=== PATIENT | female | born 1960 | race Caucasian/White ===

== ENCOUNTER → 2017-01-21 | Outpatient (CLI) | payer BC ==
[2017-01-21 10:55] LABS: CHLORIDE,CL 104 mmol/L (98-110); SODIUM,NA 141 mmol/L (136-146)
== END ==
LOC: MW.CHRC 09:54
PROVIDERS: ATTEND Family Medicine
DX: Z00.00 Encounter for general adult medical examination without abnormal findings (principal)
CPT/HCPCS: 36415; 80053

== ENCOUNTER 2018-05-29 11:07 | Observation (INO) | payer MEDICARE, BC ==
[2018-05-29] MEDS ORDERED: methylPREDNISolone Sodium Succinate 125 MG/2 ML SDV IVPUSH ONE (11:18)
[2018-05-29] MEDS ORDERED: Albuterol/Ipratropium 3.0-0.5 MG/3 ML Neb Soln NEB ONE (11:18)
--- NOTE | 2018-05-29 11:21 | EDM.PDOC ---
ED HPI GENERAL MEDICAL PROBLEM - General Chief Complaint: Fever Stated Complaint: FEVER Time Seen by Provider: 05/29/18 11:21 Source of Information: Reports: Patient - History of Present Illness INITIAL COMMENTS - FREE TEXT/NARRATIVE: HISTORY AND PHYSICAL: History of present illness: [Patient with history of emphysema presents with intermittent fever and general malaise, she has taken Tylenol prior to arrival She complains of fever and generalized no chills or sweats no chest pain shortness breath headache dizziness or palpitation no bowel or urine symptoms ] Review of systems: As per history of present illness and below otherwise all systems reviewed and negative. Past medical history: As per history of present illness and as reviewed below otherwise noncontributory. Surgical history: As per history of present illness and as reviewed below otherwise noncontributory. Social history: No reported history of drug or alcohol abuse. Family history: As per history of present illness and as reviewed below otherwise noncontributory. Physical exam: HEENT: Atraumatic, normocephalic, pupils reactive, negative for conjunctival pallor or scleral icterus, mucous membranes moist, throat clear, neck supple, nontender, trachea midline. Lungs: Clear to auscultation, breath sounds equal bilaterally, chest nontender. Heart: S1S2, regular, negative for clicks, rubs, or JVD. Abdomen: Soft, nondistended, nontender. Negative for masses or hepatosplenomegaly. Negative for costovertebral tenderness. Pelvis: Stable nontender. Genitourinary: Deferred. Rectal: Deferred. Extremities: Atraumatic, negative for cords or calf pain. Neurovascular unremarkable. Neuro: Awake, alert, oriented. Cranial nerves II through XII unremarkable. Cerebellum unremarkable. Motor and sensory unremarkable throughout. Exam nonfocal. Diagnostics: [CBC CMP troponin UA Chest 1 view EKG ] Therapeutics: [ normal saline 1 25 mL per hour DuoNeb Solu-Medrol 125 mg IV ] Levaquin 750 mg IV Impression: [Hypoxia Fever-at home Emphysema ] Definitive disposition and diagnosis as appropriate pending reevaluation and review of above. headache Pain Score (Numeric/FACES): 6 - Related Data Allergies Allergy/AdvReac Type Severity Reaction Status Date / Time No Known Allergies Allergy Verified 08/09/15 07:56 ED ROS GENERAL - Review of Systems Review Of Systems: See Below ED EXAM, GENERAL - Physical Exam Exam: See Below Course - Vital Signs Last Recorded V/S: Last Vital Signs Temp 99.0 F 05/29/18 11:18 Pulse 127 H 05/29/18 11:18 Resp 20 05/29/18 11:18 BP 135/67 05/29/18 11:18 Pulse Ox 68 L 05/29/18 11:18 - Orders/Labs/Meds Orders: Active Orders 24 hr Category Date Time Status EKG Documentation Completion [RC] STAT Care 05/29/18 11:19 Active RT Aerosol Therapy [RC] ASDIRECTED Care 05/29/18 11:19 Active CULTURE BLOOD [BC] Stat Lab 05/29/18 11:30 Received CULTURE BLOOD [BC] Stat Lab 05/29/18 11:37 Received CULTURE URINE [RM] Stat Lab 05/29/18 13:07 Ordered LACTIC ACID,WHOLE BLOOD [BG] Stat Lab 05/29/18 12:34 Ordered UA W/MICROSCOPIC [URIN] Stat Lab 05/29/18 13:07 Ordered Levofloxacin/Dextrose 5%-Water [Levaquin in D5W 750 MG/ Med 05/29/18 13:33 Ordered 150 ML] 750 mg Premix Bag 1 bag IV ONETIME Sodium Chloride 0.9% [Normal Saline] 1,000 ml Med 05/29/18 11:30 Active IV STAT Blood Culture x2 Reflex Set [OM.PC] Stat Oth 05/29/18 11:19 Ordered Medication Orders Sodium Chloride (Normal Saline) 1,000 mls @ 125 mls/hr IV STAT CLARA Last Infusion: 05/29/18 13:29 Dose: 125 mls/hr Infusion: 05/29/18 12:40 Dose: 999 mls/hr Admin: 05/29/18 11:39 Dose: 125 mls/hr Labs: Laboratory Tests 05/29/18 05/29/18 05/29/18 Range/Units 11:30 11:30 13:07 WBC 8.36 (4.0-11.0) K/uL RBC 4.40 (4.30-5.90) M/uL Hgb 13.4 (12.0-16.0) g/dL Hct 41.2 (36.0-46.0) % MCV 93.6 (80.0-98.0) fL MCH 30.5 (27.0-32.0) pg MCHC 32.5 (31.0-37.0) g/dL RDW Std Deviation 47.6 (28.0-62.0) fl RDW Coeff of Shaq 14 (11.0-15.0) % Plt Count 191 (150-400) K/uL MPV 10.30 (7.40-12.00) fL Neut % (Auto) 79.6 (48.0-80.0) % Lymph % (Auto) 11.5 L (16.0-40.0) % [place] % (Auto) 8.1 (0.0-15.0) % Eos % (Auto) 0.6 (0.0-7.0) % Baso % (Auto) 0.2 (0.0-1.5) % Neut # (Auto) 6.7 H (1.4-5.7) K/uL Lymph # (Auto) 1.0 (0.6-2.4) K/uL [place] # (Auto) 0.7 (0.0-0.8) K/uL Eos # (Auto) 0.1 (0.0-0.7) K/uL Baso # (Auto) 0.0 (0.0-0.1) K/uL Nucleated RBC % 0.0 /100WBC Nucleated RBCs # 0 K/uL Sodium 137 (136-145) mmol/L Potassium 4.3 (3.5-5.1) mmol/L Chloride 101 (98-107) mmol/L Carbon Dioxide 30.0 (21.0-32.0) mmol/L BUN 8 (7.0-18.0) mg/dL Creatinine 0.7 (0.6-1.0) mg/dL Est Cr Clr Drug Dosing 80.55 mL/min Estimated GFR (MDRD) > 60.0 ml/min Glucose 106 (74-106) mg/dL Calcium 8.8 (8.5-10.1) mg/dL Total Bilirubin 0.4 (0.2-1.0) mg/dL AST 9 L (15-37) IU/L ALT 11 L (14-63) IU/L Alkaline Phosphatase 82 (46-116) U/L Troponin I < 0.050 (0.000-0.056) ng/mL Total Protein 7.7 (6.4-8.2) g/dL Albumin 3.7 (3.4-5.0) g/dL Globulin 4.0 H (2.0-3.5) g/dL Albumin/Globulin Ratio 0.9 L (1.3-2.8) Urine Color YELLOW Urine Appearance CLEAR Urine pH 6.0 (5.0-8.0) Ur Specific [place] 1.025 (1.001-1.035) Urine Protein NEGATIVE (NEGATIVE) mg/dL Urine Glucose (UA) NEGATIVE (NEGATIVE) mg/dL Urine Ketones NEGATIVE (NEGATIVE) mg/dL Urine Occult Blood NEGATIVE (NEGATIVE) Urine Nitrite NEGATIVE (NEGATIVE) Urine Bilirubin NEGATIVE (NEGATIVE) Urine Urobilinogen 0.2 (<2.0) EU/dL Ur Leukocyte Esterase NEGATIVE (NEGATIVE) Urine RBC 0-1 (0-2/HPF) Urine WBC 0-2 (0-5/HPF) Ur Epithelial Cells OCCASIONAL (NONE-FEW) Urine Bacteria FEW (NEGATIVE) Urine Mucus FEW (NONE-MOD) Meds: Medications Generic Name Dose Route Start Last Admin Trade Name Savanna PRN Reason Stop Dose Admin Sodium Chloride 1,000 mls @ 125 mls/hr 05/29/18 11:30 05/29/18 13:29 Normal Saline IV 125 mls/hr STAT CLARA Infusion Discontinued Medications Generic Name Dose Route Start Last Admin Trade Name Savanna PRN Reason Stop Dose Admin Acetaminophen 650 mg 05/29/18 13:18 05/29/18 13:27 Tylenol PO 05/29/18 13:19 650 mg NOW ONE Administration Albuterol/Ipratropium 3 ml 05/29/18 11:18 05/29/18 11:29 Duoneb 3.0-0.5 Mg/3 Ml NEB 05/29/18 11:19 3 ml ONETIME ONE Administration Methylprednisolone Sodium Succinate 125 mg 05/29/18 11:18 05/29/18 11:38 Solu-Medrol IVPUSH 05/29/18 11:19 125 mg ONETIME ONE Administration Departure - Departure Time of Disposition: 13:34 Disposition: Refer to Observation Condition: Poor Clinical Impression: Hypoxia, Fever - Discharge Information Referrals: PCP,None [Primary Care Provider] - Forms: ED Department Discharge - My Orders Last 24 Hours: My Active Orders 05/29/18 11:19 EKG Documentation Completion [RC] STAT RT Aerosol Therapy [RC] ASDIRECTED Blood Culture x2 Reflex Set [OM.PC] Stat 05/29/18 11:30 CULTURE BLOOD [BC] Stat Sodium Chloride 0.9% [Normal Saline] 1,000 ml IV STAT 05/29/18 11:37 CULTURE BLOOD [BC] Stat 05/29/18 12:34 LACTIC ACID,WHOLE BLOOD [BG] Stat 05/29/18 13:07 CULTURE URINE [RM] Stat UA W/MICROSCOPIC [URIN] Stat 05/29/18 13:33 Levofloxacin/Dextrose 5%-Water [Levaquin in D5W 750 MG/150 ML] 750 mg Premix Bag 1 bag IV ONETIME - Assessment/Plan Last 24 Hours: My Active Orders 05/29/18 11:19 EKG Documentation Completion [RC] STAT RT Aerosol Therapy [RC] ASDIRECTED Blood Culture x2 Reflex Set [OM.PC] Stat 05/29/18 11:30 CULTURE BLOOD [BC] Stat Sodium Chloride 0.9% [Normal Saline] 1,000 ml IV STAT 05/29/18 11:37 CULTURE BLOOD [BC] Stat 05/29/18 12:34 LACTIC ACID,WHOLE BLOOD [BG] Stat 05/29/18 13:07 CULTURE URINE [RM] Stat UA W/MICROSCOPIC [URIN] Stat 05/29/18 13:33 Levofloxacin/Dextrose 5%-Water [Levaquin in D5W 750 MG/150 ML] 750 mg Premix Bag 1 bag IV ONETIME
[2018-05-29] MEDS: Sodium Chloride 0.9% 1,000 ML IV SCH ×2 (11:39→16:02)
--- NOTE | 2018-05-29 12:05 | CR ---
EXAMINATION: Portable chest radiograph. HISTORY: Shortness of breath. FINDINGS: The trachea is midline. The cardiomediastinal silhouette is within normal limits. No pulmonary infilt rates, effusions or pneumothorax. Mild chronic interstitial prominence. Osseous structures appear unremarkable. IMPRESSION: No acute cardiopulmonary process.
[2018-05-29 12:18] LABS: CHLORIDE,CL 101 mmol/L (98-107); SODIUM,NA 137 mmol/L (136-145)
[2018-05-29] MEDS ORDERED: Acetaminophen 325 MG Tab PO ONE (13:18)
[2018-05-29] MEDS ORDERED: Levofloxacin/Dextrose 5%-Water 750 MG in Premix Bag 1 BAG IV ONE (13:33)
[2018-05-29] MEDS ORDERED: methylPREDNISolone Sodium Succinate 125 MG/2 ML SDV IVPUSH SCH (14:45)
--- NOTE | 2018-05-29 14:50 | PCM.HP ---
H&P History of Present Illness - General Date of Service: 05/29/18 Admit Problem/Dx: Admission Diagnosis/Problem Admission Diagnosis/Problem Hypoxia - History of Present Illness Initial Comments - Free Text/Narative: The patient is a 57-year-old female with past medical history of COPD who presented today to the ER with hypoxia, O2 sat of 68%, cough, shortness of breath, fever, chills. The patient reports that her granddaughter recently started kindergarten and came home with cold-like symptoms, which she caught. She endorses of 4 day history of productive cough, shortness of breath, fever of 102 , achiness and chills. She has tried [id number] NyQuil and DayQuil without relief. She normally takes Combivent, Pulmicort and Ventolin inhalers as well as daily neb treatments. She's noticed she has needed more nebs treatments the past few days. In the ER, their workup included CBC, CMP, troponin, blood cultures, UA and lactic acid. She did not have a white count. Her troponins negative. No sign of infection on urine and lactic acid was negative. A chest x-ray showed no acute cardiopulmonary process but did show chronic mild interstitial process. They gave her IV fluids, Levaquin, a dose of Solu-Medrol and a DuoNeb treatment. She she noted relief with the neb treatment. 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 Respiratory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: COPD, Other (See Below) Other Respiratory History: emphsyema Gastrointestinal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: Bowel Obstruction Genitourinary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: None [employer] COORD[employer]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: Musculoskeletal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: Arthritis Neurological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: None Psychiatric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: Anxiety Endocrine/Metabolic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: None Hematologic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: None Immunologic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: None Oncologic (Cancer)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: None Dermatologic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: None - Infectious Disease History Infectious Disease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: Chicken Pox, Measles, Mumps - Past Surgical History Head Surgeries/Procedures: Reports: None HEENT Surgical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: Tonsillectomy Respiratory Surgical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: None GI Surgical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: Appendectomy, Other (See Below) (GI procedure for bowel obstructin 2011) Female Surgical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: Section, Tubal Ligation Endocrine Surgical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: None Neurological Surgical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: None Musculoskeletal Surgical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: None Oncologic Surgical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: None Dermatological Surgical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: None Social & Family History - Family History Family Medical History: Noncontributory - Tobacco Use Smoking Status *Q: Former Smoker Used Tobacco, but Quit: Yes Month/Year Tobacco Last Used: 5 - Caffeine Use Caffeine Use: Reports: None - Alcohol Use Alcohol Use History: No - Recreational Drug Use Recreational Drug Use: No H&P Review of Systems - Review of Systems: Review Of Systems: See Below General: Reports: Fever, Chills, Weakness HEENT: Reports: No Symptoms Pulmonary: Reports: Shortness of Breath, Cough, Sputum. Denies: Hemoptysis Cardiovascular: Reports: No Symptoms. Denies: Chest Pain Gastrointestinal: Reports: No Symptoms Genitourinary: Reports: No Symptoms Musculoskeletal: Reports: Other (chronic arthritis-bilateral hands) Skin: Reports: No Symptoms Psychiatric: Reports: No Symptoms Neurological: Reports: No Symptoms Hematologic/Lymphatic: Reports: No Symptoms Immunologic: Reports: No Symptoms Exam - Exam Exam: See Below - Vital Signs Vital Signs: Last Vital Signs Temp 99.0 F 05/29/18 11:18 Pulse 127 H 05/29/18 11:18 Resp 20 05/29/18 11:18 BP 135/67 05/29/18 11:18 Pulse Ox 68 L 05/29/18 11:18 Weight: 58.967 kg - Exam Quality Assessment: Supplemental Oxygen General: Alert, Oriented, Cooperative HEENT: Conjunctiva Clear, EOMI, Posterior Pharynx Clear, Pupils Equal, Pupils Reactive Neck: Supple, Trachea Midline Lungs: Other (coarse sounds left base, wheezes right) Cardiovascular: Regular Rate, Regular Rhythm GI/Abdominal Exam: Normal Bowel Sounds, Soft, Non-Tender, No Distention Extremities: Normal Inspection, No Pedal Edema Skin: Warm, Dry Neurological: Cranial Nerves Intact Neuro Extensive - Mental Status: Alert, Oriented x3, Normal Mood/Affect Psychiatric: Alert, Normal Affect, Normal Mood - Patient Data Lab Results Last 24 hrs: Laboratory Results - last 24 hr 05/29/18 05/29/18 05/29/18 Range/Units 11:30 11:30 13:07 WBC 8.36 (4.0-11.0) K/uL RBC 4.40 (4.30-5.90) M/uL Hgb 13.4 (12.0-16.0) g/dL Hct 41.2 (36.0-46.0) % MCV 93.6 (80.0-98.0) fL MCH 30.5 (27.0-32.0) pg MCHC 32.5 (31.0-37.0) g/dL RDW Std Deviation 47.6 (28.0-62.0) fl RDW Coeff of Shaq 14 (11.0-15.0) % Plt Count 191 (150-400) K/uL MPV 10.30 (7.40-12.00) fL Neut % (Auto) 79.6 (48.0-80.0) % Lymph % (Auto) 11.5 L (16.0-40.0) % [place] % (Auto) 8.1 (0.0-15.0) % Eos % (Auto) 0.6 (0.0-7.0) % Baso % (Auto) 0.2 (0.0-1.5) % Neut # (Auto) 6.7 H (1.4-5.7) K/uL Lymph # (Auto) 1.0 (0.6-2.4) K/uL [place] # (Auto) 0.7 (0.0-0.8) K/uL Eos # (Auto) 0.1 (0.0-0.7) K/uL Baso # (Auto) 0.0 (0.0-0.1) K/uL Nucleated RBC % 0.0 /100WBC Nucleated RBCs # 0 K/uL Lactate (0.20-2.00) mmol/L Sodium 137 (136-145) mmol/L Potassium 4.3 (3.5-5.1) mmol/L Chloride 101 (98-107) mmol/L Carbon Dioxide 30.0 (21.0-32.0) mmol/L BUN 8 (7.0-18.0) mg/dL Creatinine 0.7 (0.6-1.0) mg/dL Est Cr Clr Drug Dosing 80.55 mL/min Estimated GFR (MDRD) > 60.0 ml/min Glucose 106 (74-106) mg/dL Calcium 8.8 (8.5-10.1) mg/dL Total Bilirubin 0.4 (0.2-1.0) mg/dL AST 9 L (15-37) IU/L ALT 11 L (14-63) IU/L Alkaline Phosphatase 82 (46-116) U/L Troponin I < 0.050 (0.000-0.056) ng/mL Total Protein 7.7 (6.4-8.2) g/dL Albumin 3.7 (3.4-5.0) g/dL Globulin 4.0 H (2.0-3.5) g/dL Albumin/Globulin Ratio 0.9 L (1.3-2.8) Urine Color YELLOW Urine Appearance CLEAR Urine pH 6.0 (5.0-8.0) Ur Specific [place] 1.025 (1.001-1.035) Urine Protein NEGATIVE (NEGATIVE) mg/dL Urine Glucose (UA) NEGATIVE (NEGATIVE) mg/dL Urine Ketones NEGATIVE (NEGATIVE) mg/dL Urine Occult Blood NEGATIVE (NEGATIVE) Urine Nitrite NEGATIVE (NEGATIVE) Urine Bilirubin NEGATIVE (NEGATIVE) Urine Urobilinogen 0.2 (<2.0) EU/dL Ur Leukocyte Esterase NEGATIVE (NEGATIVE) Urine RBC 0-1 (0-2/HPF) Urine WBC 0-2 (0-5/HPF) Ur Epithelial Cells OCCASIONAL (NONE-FEW) Urine Bacteria FEW (NEGATIVE) Urine Mucus FEW (NONE-MOD) 05/29/18 Range/Units 13:55 WBC (4.0-11.0) K/uL RBC (4.30-5.90) M/uL Hgb (12.0-16.0) g/dL Hct (36.0-46.0) % MCV (80.0-98.0) fL MCH (27.0-32.0) pg MCHC (31.0-37.0) g/dL RDW Std Deviation (28.0-62.0) fl RDW Coeff of Shaq (11.0-15.0) % Plt Count (150-400) K/uL MPV (7.40-12.00) fL Neut % (Auto) (48.0-80.0) % Lymph % (Auto) (16.0-40.0) % [place] % (Auto) (0.0-15.0) % Eos % (Auto) (0.0-7.0) % Baso % (Auto) (0.0-1.5) % Neut # (Auto) (1.4-5.7) K/uL Lymph # (Auto) (0.6-2.4) K/uL [place] # (Auto) (0.0-0.8) K/uL Eos # (Auto) (0.0-0.7) K/uL Baso # (Auto) (0.0-0.1) K/uL Nucleated RBC % /100WBC Nucleated RBCs # K/uL Lactate 0.5 (0.20-2.00) mmol/L Sodium (136-145) mmol/L Potassium (3.5-5.1) mmol/L Chloride (98-107) mmol/L Carbon Dioxide (21.0-32.0) mmol/L BUN (7.0-18.0) mg/dL Creatinine (0.6-1.0) mg/dL Est Cr Clr Drug Dosing mL/min Estimated GFR (MDRD) ml/min Glucose (74-106) mg/dL Calcium (8.5-10.1) mg/dL Total Bilirubin (0.2-1.0) mg/dL AST (15-37) IU/L ALT (14-63) IU/L Alkaline Phosphatase (46-116) U/L Troponin I (0.000-0.056) ng/mL Total Protein (6.4-8.2) g/dL Albumin (3.4-5.0) g/dL Globulin (2.0-3.5) g/dL Albumin/Globulin Ratio (1.3-2.8) Urine Color Urine Appearance Urine pH (5.0-8.0) Ur Specific [place] (1.001-1.035) Urine Protein (NEGATIVE) mg/dL Urine Glucose (UA) (NEGATIVE) mg/dL Urine Ketones (NEGATIVE) mg/dL Urine Occult Blood (NEGATIVE) Urine Nitrite (NEGATIVE) Urine Bilirubin (NEGATIVE) Urine Urobilinogen (<2.0) EU/dL Ur Leukocyte Esterase (NEGATIVE) Urine RBC (0-2/HPF) Urine WBC (0-5/HPF) Ur Epithelial Cells (NONE-FEW) Urine Bacteria (NEGATIVE) Urine Mucus (NONE-MOD) Result Diagrams: 05/29/18 11:30 05/29/18 11:30 Problem List Initiated/Reviewed/Updated: Yes Orders Last 24hrs: Active Orders 24 hr Category Date Time Status Admission Status [Patient Status] [ADT] Stat ADT 05/29/18 13:35 Active EKG Documentation Completion [RC] STAT Care 05/29/18 11:19 Active Intake and Output [RC] ASDIRECTED Care 05/29/18 14:43 Ordered Oxygen Therapy [RC] ASDIRECTED Care 05/29/18 14:43 Ordered RT Aerosol Therapy [RC] ASDIRECTED Care 05/29/18 11:19 Active RT Aerosol Therapy [RC] ASDIRECTED Care 05/29/18 14:43 Ordered Telemetry Monitoring [Cardiac Monitoring] [RC] . Care 05/29/18 14:30 Active DIRECTED Vital Signs [RC] PER UNIT ROUTINE Care 05/29/18 14:43 Ordered Regular Diet [DIET] Diet 05/29/18 Dinner Ordered CULTURE BLOOD [BC] Stat Lab 05/29/18 11:30 Received CULTURE BLOOD [BC] Stat Lab 05/29/18 11:37 Received CULTURE URINE [RM] Stat Lab 05/29/18 13:07 Ordered UA W/MICROSCOPIC [URIN] Stat Lab 05/29/18 13:07 Ordered Albuterol/Ipratropium [DuoNeb 3.0-0.5 MG/3 ML] Med 05/29/18 18:00 Ordered 3 ml NEB Q4HRRT Enoxaparin [Lovenox] Med 05/29/18 14:45 Ordered 40 mg SUBCUT Q24H Levofloxacin/Dextrose 5%-Water [Levaquin in D5W 750 MG/ Med 05/29/18 13:33 Active 150 ML] 750 mg Premix Bag 1 bag IV ONETIME Levofloxacin/Dextrose 5%-Water [Levaquin in D5W 750 MG/ Med 05/30/18 14:45 Ordered 150 ML] 750 mg Premix Bag 1 bag IV Q24H Sodium Chloride 0.9% [Normal Saline] 1,000 ml Med 05/29/18 11:30 Active IV STAT methylPREDNISolone Sod Succ [Solu-MEDROL] Med 05/29/18 14:45 Ordered 125 mg IVPUSH Q8H Blood Culture x2 Reflex Set [OM.PC] Stat Oth 05/29/18 11:19 Ordered Resuscitation Status Routine Resus Stat 05/29/18 14:43 Ordered Medication Orders Sodium Chloride (Normal Saline) 1,000 mls @ 125 mls/hr IV STAT CLARA Last Infusion: 05/29/18 13:29 Dose: 125 mls/hr Infusion: 05/29/18 12:40 Dose: 999 mls/hr Admin: 05/29/18 11:39 Dose: 125 mls/hr Levofloxacin/Dextrose 750 mg/ (Premix) 150 mls @ 100 mls/hr IV ONETIME ONE Stop: 05/29/18 15:02 Last Admin: 05/29/18 14:13 Dose: 100 mls/hr Assessment/Plan Comment:: 1. Admit for observation 2. Code Status- full 3. Vitals per routine 4. I/Os per routine 5. Diet- regular 6. DVT prophylaxis- Lovenox 7. Acute hypoxic respiratory failure secondary to COPD exacerbation- We will give her solumedrol 125 mg q 8, duonebs q 4, Levaquin daily, and oxygen as needed.
[2018-05-29] MEDS: Enoxaparin 40 MG/0.4 ML Syringe SUBCUT SCH (15:43)
[2018-05-29] MEDS: Albuterol/Ipratropium 3.0-0.5 MG/3 ML Neb Soln NEB SCH ×2 (18:08→21:29)
[2018-05-29] MEDS ORDERED: Acetaminophen 325 MG Tab PO PRN (18:10)
[2018-05-29] MEDS: methylPREDNISolone Sodium Succinate 125 MG/2 ML SDV IVPUSH SCH (18:31)
[2018-05-30] MEDS: Sodium Chloride 0.9% 1,000 ML IV SCH ×3 (00:22→19:48)
[2018-05-30] MEDS: methylPREDNISolone Sodium Succinate 125 MG/2 ML SDV IVPUSH SCH ×3 (02:39→18:19)
[2018-05-30] MEDS: Albuterol/Ipratropium 3.0-0.5 MG/3 ML Neb Soln NEB SCH ×6 (02:40→21:03)
[2018-05-30 06:56] LABS: CHLORIDE,CL 105 mmol/L (98-107); SODIUM,NA 142 mmol/L (136-145)
--- NOTE | 2018-05-30 14:23 | PCM.PN ---
- General Info Date of Service: 05/30/18 - Review of Systems Systems Review Comment:: fevers and shortness of breath improved, still feels worn down - Patient Data Vitals - Most Recent: Last Vital Signs Temp 36.8 C 05/30/18 12:00 Pulse 83 05/30/18 12:00 Resp 20 05/30/18 12:00 BP 120/72 05/30/18 12:00 Pulse Ox 92 L 05/30/18 12:00 Weight - Most Recent: 58.967 kg I&O - Last 24 Hours: Intake & Output 05/29/18 05/30/18 05/30/18 22:59 06:59 14:59 Intake Total 327 1605 Output Total 300 1300 Balance 27 305 Lab Results Last 24 Hours: Laboratory Results - last 24 hr 05/30/18 05/30/18 05/30/18 Range/Units 06:12 06:12 06:25 WBC 4.03 (4.0-11.0) K/uL RBC 3.94 L (4.30-5.90) M/uL Hgb 11.7 L (12.0-16.0) g/dL Hct 36.7 (36.0-46.0) % MCV 93.1 (80.0-98.0) fL MCH 29.7 (27.0-32.0) pg MCHC 31.9 (31.0-37.0) g/dL RDW Std Deviation 46.7 (28.0-62.0) fl RDW Coeff of Shaq 14 (11.0-15.0) % Plt Count 160 (150-400) K/uL MPV 10.30 (7.40-12.00) fL Neut % (Auto) 78.7 (48.0-80.0) % Lymph % (Auto) 16.1 (16.0-40.0) % [place] % (Auto) 5.2 (0.0-15.0) % Eos % (Auto) 0.0 (0.0-7.0) % Baso % (Auto) 0.0 (0.0-1.5) % Neut # (Auto) 3.2 (1.4-5.7) K/uL Lymph # (Auto) 0.7 (0.6-2.4) K/uL [place] # (Auto) 0.2 (0.0-0.8) K/uL Eos # (Auto) 0.0 (0.0-0.7) K/uL Baso # (Auto) 0.0 (0.0-0.1) K/uL Nucleated RBC % 0.0 /100WBC Nucleated RBCs # 0 K/uL Sodium 142 (136-145) mmol/L Potassium 4.0 (3.5-5.1) mmol/L Chloride 105 (98-107) mmol/L Carbon Dioxide 29.6 (21.0-32.0) mmol/L BUN 10 (7.0-18.0) mg/dL Creatinine 0.6 (0.6-1.0) mg/dL Est Cr Clr Drug Dosing 93.98 mL/min Estimated GFR (MDRD) > 60.0 ml/min Glucose 121 H (74-106) mg/dL POC Glucose 118 H (60-110) mg/dL Calcium 8.2 L (8.5-10.1) mg/dL Yair Results Last 24 Hours: Microbiology 05/29/18 11:37 Aerobic Blood Culture - Preliminary Blood - Venous - Lab Draw NO GROWTH AFTER 1 DAY Anaerobic Blood Culture - Preliminary NO GROWTH AFTER 1 DAY 05/29/18 11:30 Aerobic Blood Culture - Preliminary Blood - Venous NO GROWTH AFTER 1 DAY Anaerobic Blood Culture - Preliminary NO GROWTH AFTER 1 DAY Med Orders - Current: Current Medications Acetaminophen (Tylenol) 650 mg PO Q4H PRN PRN Reason: Pain (Mild 1-3)/fever Last Admin: 05/30/18 11:13 Dose: 650 mg Albuterol/Ipratropium (Duoneb 3.0-0.5 Mg/3 Ml) 3 ml NEB Q4HRRT CLARA Last Admin: 05/30/18 13:38 Dose: 3 ml Enoxaparin Sodium (Lovenox) 40 mg SUBCUT Q24H CLARA Last Admin: 05/29/18 15:43 Dose: 40 mg Sodium Chloride (Normal Saline) 1,000 mls @ 125 mls/hr IV STAT CLARA Last Admin: 05/30/18 09:40 Dose: 125 mls/hr Levofloxacin/Dextrose 750 mg/ (Premix) 150 mls @ 100 mls/hr IV Q24H CLARA Methylprednisolone Sodium Succinate (Solu-Medrol) 125 mg IVPUSH Q12H CLARA Discontinued Medications Acetaminophen (Tylenol) 650 mg PO NOW ONE Stop: 05/29/18 13:19 Last Admin: 05/29/18 13:27 Dose: 650 mg Albuterol/Ipratropium (Duoneb 3.0-0.5 Mg/3 Ml) 3 ml NEB ONETIME ONE Stop: 05/29/18 11:19 Last Admin: 05/29/18 11:29 Dose: 3 ml Levofloxacin/Dextrose 750 mg/ (Premix) 150 mls @ 100 mls/hr IV ONETIME ONE Stop: 05/29/18 15:02 Last Admin: 05/29/18 14:13 Dose: 100 mls/hr Methylprednisolone Sodium Succinate (Solu-Medrol) 125 mg IVPUSH ONETIME ONE Stop: 05/29/18 11:19 Last Admin: 05/29/18 11:38 Dose: 125 mg Methylprednisolone Sodium Succinate (Solu-Medrol) 125 mg IVPUSH Q8H [facility] Last Admin: 05/29/18 16:23 Dose: Not Given Methylprednisolone Sodium Succinate (Solu-Medrol) 125 mg IVPUSH Q8H [facility] Last Admin: 05/30/18 10:42 Dose: 125 mg - Exam General: Alert, Oriented Lungs: Clear to Auscultation, Normal Respiratory Effort Cardiovascular: Regular Rate, Regular Rhythm GI/Abdominal Exam: Soft, Non-Tender Extremities: Non-Tender Skin: Warm, Dry, Intact Neurological: No New Focal Deficit - Problem List Review Problem List Initiated/Reviewed/Updated: Yes - My Orders Last 24 Hours: My Active Orders 05/29/18 14:30 Telemetry Monitoring [Cardiac Monitoring] [RC] Q8H 05/30/18 19:00 methylPREDNISolone Sod Succ [Solu-MEDROL] 125 mg IVPUSH Q12H 05/31/18 05:11 BASIC METABOLIC PANEL,BMP [CHEM] AM CBC WITH AUTO DIFF [HEME] AM 06/01/18 05:11 BASIC METABOLIC PANEL,BMP [CHEM] AM CBC WITH AUTO DIFF [HEME] AM 06/02/18 05:11 BASIC METABOLIC PANEL,BMP [CHEM] AM CBC WITH AUTO DIFF [HEME] AM 06/03/18 05:11 BASIC METABOLIC PANEL,BMP [CHEM] AM CBC WITH AUTO DIFF [HEME] AM 06/04/18 05:11 BASIC METABOLIC PANEL,BMP [CHEM] AM CBC WITH AUTO DIFF [HEME] AM 06/05/18 05:11 BASIC METABOLIC PANEL,BMP [CHEM] AM CBC WITH AUTO DIFF [HEME] AM - Plan Plan:: 57 yo female admitted for COPD exacerbation. Will decrease solumedrol rate to q12h, continue dounebs and levaquin. Patient does not feel ready to go home.
[2018-05-30] MEDS: Levofloxacin/Dextrose 5%-Water 750 MG in Premix Bag 1 BAG IV SCH (14:33)
[2018-05-30] MEDS: Enoxaparin 40 MG/0.4 ML Syringe SUBCUT SCH (14:33)
[2018-05-31] MEDS: Albuterol/Ipratropium 3.0-0.5 MG/3 ML Neb Soln NEB SCH ×6 (01:23→21:11)
[2018-05-31] MEDS: Sodium Chloride 0.9% 1,000 ML IV SCH ×2 (03:07→10:44)
[2018-05-31] MEDS: methylPREDNISolone Sodium Succinate 125 MG/2 ML SDV IVPUSH SCH ×2 (06:17→18:51)
[2018-05-31 06:18] LABS: CHLORIDE,CL 106 mmol/L (98-107); SODIUM,NA 141 mmol/L (136-145)
--- NOTE | 2018-05-31 09:55 | PCM.PN ---
- General Info Date of Service: 05/31/18 Subjective Update: The patient is a 57 year old female who was admitted for COPD exacerbation. She is nervous about going home. She denies shortness of breath but she has been on oxygen. Her O2 was decreased this morning from 2 L to 1 L and her saturation is 90% on 1 L. She has remained afebrile. She denies chest pain or abdominal pain. - Review of Systems General: Reports: No Symptoms HEENT: Reports: No Symptoms Pulmonary: Reports: Cough, Wheezing. Denies: Shortness of Breath Cardiovascular: Reports: No Symptoms Gastrointestinal: Reports: No Symptoms Genitourinary: Reports: No Symptoms Musculoskeletal: Reports: No Symptoms Skin: Reports: No Symptoms Neurological: Reports: No Symptoms Psychiatric: Reports: No Symptoms - Patient Data Vitals - Most Recent: Last Vital Signs Temp 97.5 F 05/31/18 07:39 Pulse 80 05/31/18 07:39 Resp 15 05/31/18 07:39 BP 154/75 H 05/31/18 07:39 Pulse Ox 90 L 05/31/18 07:39 Weight - Most Recent: 58.967 kg I&O - Last 24 Hours: Intake & Output 05/30/18 05/31/18 05/31/18 22:59 06:59 14:59 Intake Total 6106 1317 Output Total 600 800 Balance 5506 517 Lab Results Last 24 Hours: Laboratory Results - last 24 hr 05/31/18 05/31/18 Range/Units 05:45 05:45 WBC 9.46 (4.0-11.0) K/uL RBC 3.72 L (4.30-5.90) M/uL Hgb 11.1 L (12.0-16.0) g/dL Hct 34.3 L (36.0-46.0) % MCV 92.2 (80.0-98.0) fL MCH 29.8 (27.0-32.0) pg MCHC 32.4 (31.0-37.0) g/dL RDW Std Deviation 45.9 (28.0-62.0) fl RDW Coeff of Shaq 14 (11.0-15.0) % Plt Count 199 (150-400) K/uL MPV 9.90 (7.40-12.00) fL Add Manual Diff YES Neutrophils % (Manual) 74 (48.0-80.0) % Band Neutrophils % 5 % Lymphocytes % (Manual) 19 (16.0-40.0) % Monocytes % (Manual) 2 (0.0-15.0) % Nucleated RBC % 0.0 /100WBC Absolute Seg Neuts 7.0 H (1.4-5.7) Band Neutrophils # 0.5 Lymphocytes # (Manual) 1.8 (0.6-2.4) Monocytes # (Manual) 0.2 (0.0-0.8) Nucleated RBCs # 0 K/uL Sodium 141 (136-145) mmol/L Potassium 3.6 (3.5-5.1) mmol/L Chloride 106 (98-107) mmol/L Carbon Dioxide 28.1 (21.0-32.0) mmol/L BUN 15 (7.0-18.0) mg/dL Creatinine 0.6 (0.6-1.0) mg/dL Est Cr Clr Drug Dosing 93.98 mL/min Estimated GFR (MDRD) > 60.0 ml/min Glucose 120 H (74-106) mg/dL Calcium 8.2 L (8.5-10.1) mg/dL Yair Results Last 24 Hours: Microbiology 05/29/18 13:07 Urine Culture - Final Urine, Clean Catch MIXED ZOE 1,000-10,000 CFU/ML 05/29/18 11:37 Aerobic Blood Culture - Preliminary Blood - Venous - Lab Draw NO GROWTH AFTER 1 DAY Anaerobic Blood Culture - Preliminary NO GROWTH AFTER 1 DAY 05/29/18 11:30 Aerobic Blood Culture - Preliminary Blood - Venous NO GROWTH AFTER 1 DAY Anaerobic Blood Culture - Preliminary NO GROWTH AFTER 1 DAY Med Orders - Current: Current Medications Acetaminophen (Tylenol) 650 mg PO Q4H PRN PRN Reason: Pain (Mild 1-3)/fever Last Admin: 05/30/18 11:13 Dose: 650 mg Albuterol/Ipratropium (Duoneb 3.0-0.5 Mg/3 Ml) 3 ml NEB Q4HRRT ON LICENSE OF [facility] Last Admin: 05/31/18 06:01 Dose: 3 ml Enoxaparin Sodium (Lovenox) 40 mg SUBCUT Q24H ON LICENSE OF [facility] Last Admin: 05/30/18 14:33 Dose: 40 mg Sodium Chloride (Normal Saline) 1,000 mls @ 125 mls/hr IV STAT ON LICENSE OF [facility] Last Admin: 05/31/18 03:07 Dose: 125 mls/hr Levofloxacin/Dextrose 750 mg/ (Premix) 150 mls @ 100 mls/hr IV Q24H ON LICENSE OF [facility] Last Admin: 05/30/18 14:33 Dose: 100 mls/hr Methylprednisolone Sodium Succinate (Solu-Medrol) 125 mg IVPUSH Q12H ON LICENSE OF [facility] Last Admin: 05/31/18 06:17 Dose: 125 mg Discontinued Medications Acetaminophen (Tylenol) 650 mg PO NOW ONE Stop: 05/29/18 13:19 Last Admin: 05/29/18 13:27 Dose: 650 mg Albuterol/Ipratropium (Duoneb 3.0-0.5 Mg/3 Ml) 3 ml NEB ONETIME ONE Stop: 05/29/18 11:19 Last Admin: 05/29/18 11:29 Dose: 3 ml Levofloxacin/Dextrose 750 mg/ (Premix) 150 mls @ 100 mls/hr IV ONETIME ONE Stop: 05/29/18 15:02 Last Admin: 05/29/18 14:13 Dose: 100 mls/hr Methylprednisolone Sodium Succinate (Solu-Medrol) 125 mg IVPUSH ONETIME ONE Stop: 05/29/18 11:19 Last Admin: 05/29/18 11:38 Dose: 125 mg Methylprednisolone Sodium Succinate (Solu-Medrol) 125 mg IVPUSH Q8H ON LICENSE OF [facility] Last Admin: 05/29/18 16:23 Dose: Not Given Methylprednisolone Sodium Succinate (Solu-Medrol) 125 mg IVPUSH Q8H ON LICENSE OF [facility] Last Admin: 05/30/18 10:42 Dose: 125 mg - Exam Quality Assessment: Supplemental Oxygen General: Alert, Oriented, Cooperative, No Acute Distress Lungs: Wheezing (bases bilaterally) GI/Abdominal Exam: Normal Bowel Sounds, Soft, Non-Tender, No Distention Extremities: Normal Inspection, No Pedal Edema Skin: Warm, Dry Neurological: No New Focal Deficit Psy/Mental Status: Alert, Normal Affect, Normal Mood - Problem List Review Problem List Initiated/Reviewed/Updated: Yes - My Orders Last 24 Hours: My Active Orders 05/30/18 14:45 Levofloxacin/Dextrose 5%-Water [Levaquin in D5W 750 MG/150 ML] 750 mg Premix Bag 1 bag IV Q24H - Plan Plan:: 1. COPD exacerbation- will continue Levaquin, duonebs, and solumedrol q 12. Her O2 dropped down to 87-88% on RA. We will keep her another day and reassess in the morning.
[2018-05-31] MEDS: Levofloxacin/Dextrose 5%-Water 750 MG in Premix Bag 1 BAG IV SCH (14:40)
[2018-05-31] MEDS: Enoxaparin 40 MG/0.4 ML Syringe SUBCUT SCH (14:42)
[2018-05-31] MEDS ORDERED: Pneumococcal Polyvalent-23 Vaccine 0.5 ML SDV IM ONE (15:26)
[2018-06-01] MEDS: Albuterol/Ipratropium 3.0-0.5 MG/3 ML Neb Soln NEB SCH ×4 (01:38→13:21)
[2018-06-01 05:53] LABS: CHLORIDE,CL 104 mmol/L (98-107); SODIUM,NA 140 mmol/L (136-145)
[2018-06-01] MEDS: methylPREDNISolone Sodium Succinate 125 MG/2 ML SDV IVPUSH SCH (06:05)
[2018-06-01] MEDS ORDERED: Potassium Chloride 20 MEQ Tab.ER PO ONE (07:03)
--- NOTE | 2018-06-01 08:54 | PCM.PN ---
- General Info Date of Service: 06/01/18 Subjective Update: Patient is a 57 year old female who was admitted for COPD exacerbation. She denies any chest pain, abdominal pain, difficultly eating or drinking. She does endorse shortness of breath with activity despite oxygen supplementation. Off oxygen her O2 sat drops down to 86-88. She does endorse cough. She does not feel ready to go home this morning. - Review of Systems General: Reports: No Symptoms HEENT: Reports: No Symptoms Pulmonary: Reports: Shortness of Breath, Cough, Wheezing Cardiovascular: Reports: No Symptoms Gastrointestinal: Reports: No Symptoms Genitourinary: Reports: No Symptoms Musculoskeletal: Reports: No Symptoms Skin: Reports: No Symptoms Neurological: Reports: No Symptoms Psychiatric: Reports: No Symptoms - Patient Data Vitals - Most Recent: Last Vital Signs Temp 98.8 F 06/01/18 07:45 Pulse 76 06/01/18 07:45 Resp 16 06/01/18 07:45 BP 161/82 H 06/01/18 07:45 Pulse Ox 92 L 06/01/18 07:45 Weight - Most Recent: 58.967 kg I&O - Last 24 Hours: Intake & Output 05/31/18 06/01/18 06/01/18 22:59 06:59 14:59 Intake Total 390 700 Output Total 900 1050 Balance -510 -350 Lab Results Last 24 Hours: Laboratory Results - last 24 hr 06/01/18 06/01/18 Range/Units 05:19 05:19 WBC 10.48 (4.0-11.0) K/uL RBC 3.98 L (4.30-5.90) M/uL Hgb 11.8 L (12.0-16.0) g/dL Hct 36.2 (36.0-46.0) % MCV 91.0 (80.0-98.0) fL MCH 29.6 (27.0-32.0) pg MCHC 32.6 (31.0-37.0) g/dL RDW Std Deviation 44.9 (28.0-62.0) fl RDW Coeff of Shaq 14 (11.0-15.0) % Plt Count 223 (150-400) K/uL MPV 9.90 (7.40-12.00) fL Add Manual Diff YES Neutrophils % (Manual) 81 H (48.0-80.0) % Band Neutrophils % 2 % Lymphocytes % (Manual) 7 L (16.0-40.0) % Monocytes % (Manual) 10 (0.0-15.0) % Nucleated RBC % 0.0 /100WBC Absolute Seg Neuts 8.5 H (1.4-5.7) Band Neutrophils # 0.2 Lymphocytes # (Manual) 0.7 (0.6-2.4) Monocytes # (Manual) 1.0 H (0.0-0.8) Nucleated RBCs # 0 K/uL Sodium 140 (136-145) mmol/L Potassium 3.4 L (3.5-5.1) mmol/L Chloride 104 (98-107) mmol/L Carbon Dioxide 30.7 (21.0-32.0) mmol/L BUN 14 (7.0-18.0) mg/dL Creatinine 0.6 (0.6-1.0) mg/dL Est Cr Clr Drug Dosing 93.98 mL/min Estimated GFR (MDRD) > 60.0 ml/min Glucose 120 H (74-106) mg/dL Calcium 8.6 (8.5-10.1) mg/dL Yair Results Last 24 Hours: Microbiology 05/29/18 11:37 Aerobic Blood Culture - Preliminary Blood - Venous - Lab Draw NO GROWTH AFTER 2 DAYS Anaerobic Blood Culture - Preliminary NO GROWTH AFTER 2 DAYS 05/29/18 11:30 Aerobic Blood Culture - Preliminary Blood - Venous NO GROWTH AFTER 2 DAYS Anaerobic Blood Culture - Preliminary NO GROWTH AFTER 2 DAYS 05/29/18 13:07 Urine Culture - Final Urine, Clean Catch MIXED ZOE 1,000-10,000 CFU/ML Med Orders - Current: Current Medications Acetaminophen (Tylenol) 650 mg PO Q4H PRN PRN Reason: Pain (Mild 1-3)/fever Last Admin: 05/30/18 11:13 Dose: 650 mg Albuterol/Ipratropium (Duoneb 3.0-0.5 Mg/3 Ml) 3 ml NEB Q4HRRT [facility] Last Admin: 06/01/18 05:48 Dose: 3 ml Enoxaparin Sodium (Lovenox) 40 mg SUBCUT Q24H [facility] Last Admin: 05/31/18 14:42 Dose: 40 mg Levofloxacin/Dextrose 750 mg/ (Premix) 150 mls @ 100 mls/hr IV Q24H [facility] Last Admin: 05/31/18 14:40 Dose: 100 mls/hr Methylprednisolone Sodium Succinate (Solu-Medrol) 125 mg IVPUSH Q12H [facility] Last Admin: 06/01/18 06:05 Dose: 125 mg Discontinued Medications Acetaminophen (Tylenol) 650 mg PO NOW ONE Stop: 05/29/18 13:19 Last Admin: 05/29/18 13:27 Dose: 650 mg Albuterol/Ipratropium (Duoneb 3.0-0.5 Mg/3 Ml) 3 ml NEB ONETIME ONE Stop: 05/29/18 11:19 Last Admin: 05/29/18 11:29 Dose: 3 ml Sodium Chloride (Normal Saline) 1,000 mls @ 125 mls/hr IV STAT [facility] Last Admin: 05/31/18 10:44 Dose: 125 mls/hr Levofloxacin/Dextrose 750 mg/ (Premix) 150 mls @ 100 mls/hr IV ONETIME ONE Stop: 05/29/18 15:02 Last Admin: 05/29/18 14:13 Dose: 100 mls/hr Methylprednisolone Sodium Succinate (Solu-Medrol) 125 mg IVPUSH ONETIME ONE Stop: 05/29/18 11:19 Last Admin: 05/29/18 11:38 Dose: 125 mg Methylprednisolone Sodium Succinate (Solu-Medrol) 125 mg IVPUSH Q8H [facility] Last Admin: 05/29/18 16:23 Dose: Not Given Methylprednisolone Sodium Succinate (Solu-Medrol) 125 mg IVPUSH Q8H [facility] Last Admin: 05/30/18 10:42 Dose: 125 mg Pneumococcal Polyvalent Vaccine (Pneumovax 23) 0.5 ml IM .ONCE ONE Stop: 05/31/18 15:27 Last Admin: 05/31/18 15:58 Dose: 0.5 ml Potassium Chloride (Klor-Con M20) 40 meq PO ONETIME ONE Stop: 06/01/18 07:04 Last Admin: 06/01/18 08:30 Dose: 40 meq - Exam Quality Assessment: Supplemental Oxygen General: Alert, Oriented, Cooperative Lungs: Normal Respiratory Effort, Wheezing (bases bilaterally) GI/Abdominal Exam: Normal Bowel Sounds, Soft, Non-Tender, No Distention Extremities: Normal Inspection, No Pedal Edema Skin: Warm, Dry Neurological: No New Focal Deficit Psy/Mental Status: Alert, Normal Affect, Normal Mood - Problem List Review Problem List Initiated/Reviewed/Updated: Yes - Plan Plan:: 1. COPD exacerbation- will continue Levaquin, duonebs, and solumedrol q 12. Earlier her O2 dropped down to 86-88% on RA on reassessment during rounds she maintained her oxygen saturation above 90% on RA. Reassess this afternoon for possible discharge home today.
[2018-06-01] MEDS: Levofloxacin/Dextrose 5%-Water 750 MG in Premix Bag 1 BAG IV SCH (13:58)
[2018-06-01] MEDS: Enoxaparin 40 MG/0.4 ML Syringe SUBCUT SCH (14:01)
--- NOTE | 2018-06-01 15:28 | PCM.DCSUM1 ---
Discharge Summary - Hospital Course HPI Initial Comments: Admission Date:05/29/18 Discharge Date:06/01/18 Admission Diagnosis: 1. Acute hypoxic respiratory failure secondary to COPD exacerbation Discharge Diagnosis: 1. Acute hypoxic respiratory failure secondary to COPD exacerbation- resolved Procedures: None Consults: None Hospital Course: The patient is a 57-year-old female with history of COPD who presented to the ER with fever, chills, cough, shortness of breath and an O2 saturation 68% on room air. In the ER workup included a CBC with no elevated white count, CMP, troponin,which was negative. Blood cultures were negative. A UA showed no signs of infection, and a lactate, which was not elevated. They did a chest x-ray that showed chronic interstitial process, but no acute cardiopulmonary process. In the ER, they did give her IV fluids, Levaquin, Solu -Medrol, and DuoNeb treatments. She was admitted to the medical floor for observation. She was continued on Levaquin. She was continued on Solu-Medrol originally every 8 then extended out every 12. She was also given duo nebs every 4. Over the course of her stay, she will trialed on room air, but satted at the 86-88%. On the last day of admission, she was able to get off oxygen and was satting above 91% on room air. Disposition: Home Discharge Condition: Vitals stable, satting above 91% on RA, afebrile, tolerating oral diet, ambulating without difficulty Discharge Instructions: Regular diet as tolerated, activity as tolerated, may drive, may shower. Symptoms to report to physicain include chest pain, shortness of breath, abdominal pain, fever/chills, swelling, discharge, erythema. Discharge Medications: ALPRAZolam [Xanax] 2 mg PO TID PRN Acetaminophen with Codeine [Tylenol with Codeine #4 Tablet] 1 - 2 tab PO Q4HR PRN Albuterol/Ipratropium [Combivent Respimat] 4 gm IH QID PRN Budesonide/Formoterol Fumarate [Symbicort 160-4.5 Mcg Inhaler] 1 puff INH DAILY Ipratropium/Albuterol Sulfate [Iprat-Albut 0.5-3(2.5) MG/3 ML] 1 ampule NEB QID PRN levoFLOXacin [Levaquin] 750 mg PO DAILY 1 Days #1 tab 06/01/18 [Rx] methylPREDNISolone [Medrol] 4 mg PO ASDIRECTED 6 Days #21 dospk 06/01/18 [Rx] Follow-up: Dr. Loza on 06/16/18 Diagnosis: Stroke: No - Discharge Data Discharge Date: 06/01/18 Discharge Disposition: Home, Self-Care 01 Condition: Stable - Patient Instructions Diet: Regular Diet as Tolerated Activity: As Tolerated Driving: May Drive Today Showering/Bathing: May Shower Notify Provider of: Fever, Increased Pain, Swelling and Redness, Drainage, Nausea and/or Vomiting Other/Special Instructions: Additional symptoms include chest pain, shortness of breath or abdominal pain. - Discharge Plan Prescriptions/Med Rec: levoFLOXacin [Levaquin] 750 mg PO DAILY 1 Days #1 tab methylPREDNISolone [Medrol] 4 mg PO ASDIRECTED 6 Days #21 dospk Home Medications: Home Meds ALPRAZolam [Xanax] 2 mg PO TID PRN 05/29/18 [History] Acetaminophen with Codeine [Tylenol with Codeine #4 Tablet] 1 - 2 tab PO Q4HR PRN 05/29/18 [History] Albuterol/Ipratropium [Combivent Respimat] 4 gm IH QID PRN 05/29/18 [History] Budesonide/Formoterol Fumarate [Symbicort 160-4.5 Mcg Inhaler] 1 puff INH DAILY 05/29/18 [History] Ipratropium/Albuterol Sulfate [Iprat-Albut 0.5-3(2.5) MG/3 ML] 1 ampule NEB QID PRN 05/29/18 [History] levoFLOXacin [Levaquin] 750 mg PO DAILY 1 Days #1 tab 06/01/18 [Rx] methylPREDNISolone [Medrol] 4 mg PO ASDIRECTED 6 Days #21 dospk 06/01/18 [Rx] Patient Handouts: Hypoxia, Community-Acquired Pneumonia, Adult, [id number] Referrals: Yaw Loza MD [Physician] - 06/16/18 9:00 am - Patient Data Vitals - Most Recent: Last Vital Signs Temp 98.6 F 06/01/18 12:00 Pulse 83 09/10/18 12:00 Resp 16 06/01/18 12:00 BP 160/84 H 06/01/18 12:00 Pulse Ox 90 L 06/01/18 12:00 Weight - Most Recent: 58.967 kg I&O - Last 24 hours: Intake & Output 06/01/18 06/01/18 06/01/18 06:59 14:59 22:59 Intake Total 700 Output Total 1050 Balance -350 Lab Results - Last 24 hrs: Laboratory Results - last 24 hr 06/01/18 06/01/18 Range/Units 05:19 05:19 WBC 10.48 (4.0-11.0) K/uL RBC 3.98 L (4.30-5.90) M/uL Hgb 11.8 L (12.0-16.0) g/dL Hct 36.2 (36.0-46.0) % MCV 91.0 (80.0-98.0) fL MCH 29.6 (27.0-32.0) pg MCHC 32.6 (31.0-37.0) g/dL RDW Std Deviation 44.9 (28.0-62.0) fl RDW Coeff of Shaq 14 (11.0-15.0) % Plt Count 223 (150-400) K/uL MPV 9.90 (7.40-12.00) fL Add Manual Diff YES Neutrophils % (Manual) 81 H (48.0-80.0) % Band Neutrophils % 2 % Lymphocytes % (Manual) 7 L (16.0-40.0) % Monocytes % (Manual) 10 (0.0-15.0) % Nucleated RBC % 0.0 /100WBC Absolute Seg Neuts 8.5 H (1.4-5.7) Band Neutrophils # 0.2 Lymphocytes # (Manual) 0.7 (0.6-2.4) Monocytes # (Manual) 1.0 H (0.0-0.8) Nucleated RBCs # 0 K/uL Sodium 140 (136-145) mmol/L Potassium 3.4 L (3.5-5.1) mmol/L Chloride 104 (98-107) mmol/L Carbon Dioxide 30.7 (21.0-32.0) mmol/L BUN 14 (7.0-18.0) mg/dL Creatinine 0.6 (0.6-1.0) mg/dL Est Cr Clr Drug Dosing 93.98 mL/min Estimated GFR (MDRD) > 60.0 ml/min Glucose 120 H (74-106) mg/dL Calcium 8.6 (8.5-10.1) mg/dL [id number] Results - Last 24 hrs: Microbiology 05/29/18 11:37 Aerobic Blood Culture - Preliminary Blood - Venous - Lab Draw NO GROWTH AFTER 3 DAYS Anaerobic Blood Culture - Preliminary NO GROWTH AFTER 3 DAYS 05/29/18 11:30 Aerobic Blood Culture - Preliminary Blood - Venous NO GROWTH AFTER 3 DAYS Anaerobic Blood Culture - Preliminary NO GROWTH AFTER 3 DAYS Med Orders - Current: Current Medications Acetaminophen (Tylenol) 650 mg PO Q4H PRN PRN Reason: Pain (Mild 1-3)/fever Last Admin: 05/30/18 11:13 Dose: 650 mg Albuterol/Ipratropium (Duoneb 3.0-0.5 Mg/3 Ml) 3 ml NEB Q4HRRT [facility] Last Admin: 06/01/18 13:21 Dose: 3 ml Enoxaparin Sodium (Lovenox) 40 mg SUBCUT Q24H [facility] Last Admin: 06/01/18 14:01 Dose: 40 mg Levofloxacin/Dextrose 750 mg/ (Premix) 150 mls @ 100 mls/hr IV Q24H [facility] Last Admin: 06/01/18 13:58 Dose: 100 mls/hr Methylprednisolone Sodium Succinate (Solu-Medrol) 125 mg IVPUSH Q12H [facility] Last Admin: 06/01/18 06:05 Dose: 125 mg Discontinued Medications Acetaminophen (Tylenol) 650 mg PO NOW ONE Stop: 05/29/18 13:19 Last Admin: 05/29/18 13:27 Dose: 650 mg Albuterol/Ipratropium (Duoneb 3.0-0.5 Mg/3 Ml) 3 ml NEB ONETIME ONE Stop: 05/29/18 11:19 Last Admin: 05/29/18 11:29 Dose: 3 ml Sodium Chloride (Normal Saline) 1,000 mls @ 125 mls/hr IV STAT [facility] Last Admin: 05/31/18 10:44 Dose: 125 mls/hr Levofloxacin/Dextrose 750 mg/ (Premix) 150 mls @ 100 mls/hr IV ONETIME ONE Stop: 05/29/18 15:02 Last Admin: 05/29/18 14:13 Dose: 100 mls/hr Methylprednisolone Sodium Succinate (Solu-Medrol) 125 mg IVPUSH ONETIME ONE Stop: 05/29/18 11:19 Last Admin: 05/29/18 11:38 Dose: 125 mg Methylprednisolone Sodium Succinate (Solu-Medrol) 125 mg IVPUSH Q8H [facility] Last Admin: 05/29/18 16:23 Dose: Not Given Methylprednisolone Sodium Succinate (Solu-Medrol) 125 mg IVPUSH Q8H [facility] Last Admin: 05/30/18 10:42 Dose: 125 mg Pneumococcal Polyvalent Vaccine (Pneumovax 23) 0.5 ml IM .ONCE ONE Stop: 05/31/18 15:27 Last Admin: 05/31/18 15:58 Dose: 0.5 ml Potassium Chloride (Klor-Con M20) 40 meq PO ONETIME ONE Stop: 06/01/18 07:04 Last Admin: 06/01/18 08:30 Dose: 40 meq
== END 2018-06-01 17:47 | disposition home or self-care (01) ==
LOC: MW.ED 11:07 → MW.MS 14:10
PROVIDERS: ADMIT Internal Medicine; ATTEND Internal Medicine
DX: J44.1 Chronic obstructive pulmonary disease with (acute) exacerbation (principal); J96.01 Acute respiratory failure with hypoxia; M19.90 Unspecified osteoarthritis, unspecified site; Z79.899 Other long term (current) drug therapy; Z87.891 Personal history of nicotine dependence; Z79.2 Long term (current) use of antibiotics
CPT/HCPCS: 36415; 71045; 80048; 80053; 81001; 82962; 83605; 84484; 85025; 87040; 87086; 90686; 90732; 93005; 94640; 96361; 96374; 96375; 99284; A9270; J1650; J1956; J2930; J7040; J7620-GY

== ENCOUNTER 2018-11-04 14:19 | Inpatient (IN) | payer MEDICARE, BC ==
[2018-11-04] MEDS ORDERED: Albuterol/Ipratropium 3.0-0.5 MG/3 ML Neb Soln ONE (14:23)
[2018-11-04] MEDS ORDERED: Sodium Chloride 0.9% 2.5 ML Syringe FLUSH PRN ×2 (14:28→17:42)
[2018-11-04] MEDS ORDERED: Sodium Chloride 0.9% 10 ML Syringe FLUSH PRN ×2 (14:28→17:42)
[2018-11-04] MEDS ORDERED: Sodium Chloride 0.9% 1,000 ML IV ONE (14:28)
[2018-11-04] MEDS ORDERED: methylPREDNISolone Sodium Succinate 125 MG/2 ML SDV IVPUSH ONE (14:28)
--- NOTE | 2018-11-04 14:34 | EDM.PDOC ---
ED HPI GENERAL MEDICAL PROBLEM - General Chief Complaint: Respiratory Problem Stated Complaint: SOB Time Seen by Provider: 11/04/18 14:19 Source of Information: Reports: Patient History Limitations: Reports: No Limitations - History of Present Illness INITIAL COMMENTS - FREE TEXT/NARRATIVE: History of present illness: []Has a history of COPD and has been coughing up thick green mucus and becoming more short of breath today. She started feeling ill 6 days ago after her granddaughter became sick. She does not use oxygen at home. Review of systems: As per history of present illness and below otherwise all systems reviewed and negative. Past medical history: As per history of present illness and as reviewed below otherwise noncontributory. Surgical history: As per history of present illness and as reviewed below otherwise noncontributory. Social history: No reported history of drug or alcohol abuse. Family history: As per history of present illness and as reviewed below otherwise noncontributory. Physical exam: General: Well developed, well nourished in NAD HEENT: Atraumatic, normocephalic, pupils reactive, negative for conjunctival pallor or scleral icterus, mucous membranes moist, throat clear, neck supple, nontender, trachea midline. Lungs: Clear to auscultation, breath sounds equal bilaterally, chest nontender. Heart: S1S2, regular, negative for clicks, rubs, or JVD. Abdomen: NABS, Soft, nondistended, nontender. Negative for masses or hepatosplenomegaly. Negative for costovertebral tenderness. Pelvis: Stable nontender. Genitourinary: Deferred. Rectal: Deferred. Extremities: Atraumatic, negative for cords or calf pain. Neurovascular unremarkable. Neuro: Awake, alert, oriented. Cranial nerves II through XII unremarkable. Cerebellum unremarkable. Motor and sensory unremarkable throughout. Exam nonfocal. Skin:warm and dry Diagnostics: Therapeutics: ED Course: Impression: Prescriptions: Plan: Definitive disposition and diagnosis as appropriate pending reevaluation and review of above. - Related Data Allergies Allergy/AdvReac Type Severity Reaction Status Date / Time No Known Allergies Allergy Verified 11/04/18 14:32 Home Meds: Home Meds ALPRAZolam [Xanax] 2 mg PO TID PRN 05/29/18 [History] Acetaminophen with Codeine [Tylenol with Codeine #4 Tablet] 1 - 2 tab PO Q4HR PRN 05/29/18 [History] Albuterol/Ipratropium [Combivent Respimat] 1 puff IH QID PRN 05/29/18 [History] Ipratropium/Albuterol Sulfate [Iprat-Albut 0.5-3(2.5) MG/3 ML] 3 ml NEB Q6HRRT PRN 05/29/18 [History] Amoxicillin 875 mg PO BID 10 Days #20 tab 11/04/18 [Rx] Budesonide [Pulmicort] 0.5 mg INH DAILY 11/04/18 [History] Fluticasone Propionate [Flonase] 1 - 2 puff NS DAILY 11/04/18 [History] busPIRone [Buspar] 15 mg PO BID 11/04/18 [History] predniSONE [Prednisone] 20 mg PO DAILY #5 tablet 11/04/18 [Rx] Past Medical History HEENT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: None Cardiovascular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: Other (See Below) 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 Respiratory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: COPD, Other (See Below) Other Respiratory History: emphsyema Gastrointestinal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: Bowel Obstruction Genitourinary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: None 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: Musculoskeletal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: Arthritis Neurological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: None Psychiatric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: Anxiety Endocrine/Metabolic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: None Hematologic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: None Immunologic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: None Oncologic (Cancer)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: None Dermatologic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: None - Infectious Disease History Infectious Disease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: Chicken Pox, Measles, Mumps - Past Surgical History Head Surgeries/Procedures: Reports: None HEENT Surgical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: Tonsillectomy Cardiovascular Surgical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: Cardiac Ablation Respiratory Surgical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: None GI Surgical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: Appendectomy, Colonoscopy, Other (See Below) Female Surgical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: Section, Tubal Ligation Endocrine Surgical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: None Neurological Surgical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: None Musculoskeletal Surgical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: None Oncologic Surgical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: None Dermatological Surgical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: None Social & Family History - Family History Family Medical History: Noncontributory - Caffeine Use Caffeine Use: Reports: None Other Caffeine Use: 3cups/day ED ROS GENERAL - Review of Systems Review Of Systems: ROS reveals no pertinent complaints other than HPI. ED EXAM, GENERAL - Physical Exam Exam: See Below (history of present illness) Course - Vital Signs Last Recorded V/S: Last Vital Signs Temp 99.8 F 11/04/18 14:29 Pulse 126 H 11/04/18 14:48 Resp 15 11/04/18 14:48 BP 149/88 H 11/04/18 14:48 Pulse Ox 91 L 11/04/18 14:48 - Orders/Labs/Meds Orders: Active Orders 24 hr Category Date Time Status RT Aerosol Therapy [RC] ASDIRECTED Care 11/04/18 14:52 Active Sodium Chloride 0.9% [Normal Saline] 1,000 ml Med 11/04/18 14:28 Active IV .Bolus Sodium Chloride 0.9% [Saline Flush] Med 11/04/18 14:28 Active 10 ml FLUSH ASDIRECTED PRN Sodium Chloride 0.9% [Saline Flush] Med 11/04/18 14:28 Active 2.5 ml FLUSH ASDIRECTED PRN Saline Lock Insert [OM.PC] Stat Oth 11/04/18 14:28 Ordered Medication Orders Sodium Chloride (Normal Saline) 1,000 mls @ 999 mls/hr IV .Bolus ONE Stop: 11/04/18 15:28 Last Admin: 11/04/18 14:58 Dose: 999 mls/hr Sodium Chloride (Saline Flush) 10 ml FLUSH ASDIRECTED PRN PRN Reason: Keep Vein Open Last Admin: 11/04/18 14:58 Dose: 10 ml Sodium Chloride (Saline Flush) 2.5 ml FLUSH ASDIRECTED PRN PRN Reason: Keep Vein Open Last Admin: 11/04/18 14:58 Dose: 2.5 ml Labs: Laboratory Tests 11/04/18 11/04/18 Range/Units 14:36 14:36 WBC 14.53 H (4.0-11.0) K/uL RBC 4.77 (4.30-5.90) M/uL Hgb 14.5 (12.0-16.0) g/dL Hct 42.8 (36.0-46.0) % MCV 89.7 (80.0-98.0) fL MCH 30.4 (27.0-32.0) pg MCHC 33.9 (31.0-37.0) g/dL RDW Std Deviation 45.0 (28.0-62.0) fl RDW Coeff of Shaq 14 (11.0-15.0) % Plt Count 245 (150-400) K/uL MPV 9.80 (7.40-12.00) fL Neut % (Auto) 86.4 H (48.0-80.0) % Lymph % (Auto) 6.1 L (16.0-40.0) % [place] % (Auto) 7.3 (0.0-15.0) % Eos % (Auto) 0.1 (0.0-7.0) % Baso % (Auto) 0.1 (0.0-1.5) % Neut # (Auto) 12.5 H (1.4-5.7) K/uL Lymph # (Auto) 0.9 (0.6-2.4) K/uL [place] # (Auto) 1.1 H (0.0-0.8) K/uL Eos # (Auto) 0.0 (0.0-0.7) K/uL Baso # (Auto) 0.0 (0.0-0.1) K/uL Nucleated RBC % 0.0 /100WBC Nucleated RBCs # 0 K/uL Sodium 139 (136-145) mmol/L Potassium 3.8 (3.5-5.1) mmol/L Chloride 103 (98-107) mmol/L Carbon Dioxide 29.3 (21.0-32.0) mmol/L BUN 14 (7.0-18.0) mg/dL Creatinine 0.7 (0.6-1.0) mg/dL Est Cr Clr Drug Dosing 79.31 mL/min Estimated GFR (MDRD) > 60.0 ml/min Glucose 119 H (74-106) mg/dL Calcium 9.6 (8.5-10.1) mg/dL Total Bilirubin 0.7 (0.2-1.0) mg/dL AST 15 (15-37) IU/L ALT 9 L (14-63) IU/L Alkaline Phosphatase 92 (46-116) U/L Total Protein 8.0 (6.4-8.2) g/dL Albumin 4.1 (3.4-5.0) g/dL Globulin 3.9 (2.6-4.0) g/dL Albumin/Globulin Ratio 1.1 (0.9-1.6) Meds: Medications Generic Name Dose Route Start Last Admin Trade Name Freq PRN Reason Stop Dose Admin Sodium Chloride 1,000 mls @ 999 mls/hr 11/04/18 14:28 11/04/18 14:58 Normal Saline IV 11/04/18 15:28 999 mls/hr .Bolus ONE Administration Sodium Chloride 10 ml 11/04/18 14:28 11/04/18 14:58 Saline Flush FLUSH 10 ml ASDIRECTED PRN Administration Keep Vein Open Sodium Chloride 2.5 ml 11/04/18 14:28 11/04/18 14:58 Saline Flush FLUSH 2.5 ml ASDIRECTED PRN Administration Keep Vein Open Discontinued Medications Generic Name Dose Route Start Last Admin Trade Name Freq PRN Reason Stop Dose Admin Albuterol/Ipratropium Confirm 11/04/18 14:23 11/04/18 14:57 Duoneb 3.0-0.5 Mg/3 Ml Administered 11/04/18 14:24 3 ml Dose Administration 3 ml .ROUTE .STK-MED ONE Albuterol/Ipratropium 3 ml 11/04/18 14:52 11/04/18 15:02 Duoneb 3.0-0.5 Mg/3 Ml NEB 11/04/18 14:53 3 ml ONETIME ONE Administration Methylprednisolone Sodium Succinate 125 mg 11/04/18 14:28 11/04/18 14:58 Solu-Medrol IVPUSH 11/04/18 14:29 125 mg ONETIME ONE Administration Departure - Departure Time of Disposition: 15:28 Disposition: Home, Self-Care 01 Condition: Good Clinical Impression: Bronchitis, COPD exacerbation - Discharge Information *PRESCRIPTION DRUG MONITORING PROGRAM REVIEWED*: No *COPY OF PRESCRIPTION DRUG MONITORING REPORT IN PATIENT CHELSIE: No Prescriptions: Amoxicillin 875 mg PO BID 10 Days #20 tab predniSONE [Prednisone] 20 mg PO DAILY #5 tablet Referrals: PCP,Unknown [Primary Care Provider] - Forms: ED Department Discharge Additional Instructions: The following information is given to patients seen in the emergency department who are being discharged to home. This information is to outline your options for follow-up care. We provide all patients seen in our emergency department with a follow-up referral. The need for follow-up, as well as the timing and circumstances, are variable depending upon the specifics of your emergency department visit. If you don't have a primary care physician on staff, we will provide you with a referral. We always advise you to contact your personal physician following an emergency department visit to inform them of the circumstance of the visit and for follow-up with them and/or the need for any referrals to a consulting specialist. The emergency department will also refer you to a specialist when appropriate. This referral assures that you have the opportunity for follow-up care with a specialist. All of these measure are taken in an effort to provide you with optimal care, which includes your follow-up. Under all circumstances we always encourage you to contact your private physician who remains a resource for coordinating your care. When calling for follow-up care, please make the office aware that this follow-up is from your recent emergency room visit. If for any reason you are refused follow-up, please contact the [facility] at and asked to speak to the emergency department charge nurse. Take meds as directed, follow up with your primary care physician, return to ER if symptoms worsen or change. [facility] [address] [place] [address] - My Orders Last 24 Hours: My Active Orders 11/04/18 14:28 Sodium Chloride 0.9% [Normal Saline] 1,000 ml IV .Bolus Sodium Chloride 0.9% [Saline Flush] 10 ml FLUSH ASDIRECTED PRN Sodium Chloride 0.9% [Saline Flush] 2.5 ml FLUSH ASDIRECTED PRN Saline Lock Insert [OM.PC] Stat 11/04/18 14:52 RT Aerosol Therapy [RC] ASDIRECTED - Assessment/Plan Last 24 Hours: My Active Orders 11/04/18 14:28 Sodium Chloride 0.9% [Normal Saline] 1,000 ml IV .Bolus Sodium Chloride 0.9% [Saline Flush] 10 ml FLUSH ASDIRECTED PRN Sodium Chloride 0.9% [Saline Flush] 2.5 ml FLUSH ASDIRECTED PRN Saline Lock Insert [OM.PC] Stat 11/04/18 14:52 RT Aerosol Therapy [RC] ASDIRECTED
[2018-11-04] MEDS ORDERED: Albuterol/Ipratropium 3.0-0.5 MG/3 ML Neb Soln NEB ONE ×2 (14:52→15:30)
[2018-11-04 15:07] LABS: CHLORIDE,CL 103 mmol/L (98-107); SODIUM,NA 139 mmol/L (136-145)
--- NOTE | 2018-11-04 15:20 | CR ---
EXAMINATION: Portable chest radiograph HISTORY: Pain. FINDINGS: The trachea is midline. The cardiomediastinal silhouette is within normal limits. No pulmonary infiltrates, effusions or pneumothorax. Mild interstitial prominence and hyperinflation. Osseous structures appear unremarkable. IMPRESSION: No acute cardiopulmonary process.
[2018-11-04] MEDS ORDERED: Morphine 10 MG/ML Syringe IVPUSH PRN (17:42)
[2018-11-04] MEDS ORDERED: Ondansetron 4 MG/2 ML SDV IVPUSH PRN (17:42)
[2018-11-04] MEDS ORDERED: Azithromycin 500 MG in Sodium Chloride 0.9% 250 ML IV SCH (17:45)
[2018-11-04] MEDS ORDERED: cefTRIAXone 1 GM in Premix Bag 1 BAG IV SCH (17:45)
[2018-11-04] MEDS: Enoxaparin 40 MG/0.4 ML Syringe SUBCUT SCH (18:01)
[2018-11-04] MEDS: Albuterol/Ipratropium 3.0-0.5 MG/3 ML Neb Soln NEB SCH ×2 (18:15→23:00)
[2018-11-04] MEDS: Azithromycin 500 MG in Sodium Chloride 0.9% 250 ML IV SCH (18:15)
--- NOTE | 2018-11-04 18:29 | PCM.HP ---
H&P History of Present Illness - General Date of Service: 11/04/18 Admit Problem/Dx: Admission Diagnosis/Problem Admission Diagnosis/Problem Hypoxia Source of Information: Patient - History of Present Illness Initial Comments - Free Text/Narative: This is a 57-year-old female with a history of COPD being admitted secondary to acute COPD exacerbation. Patient states that over the past week she's been progressively getting worse, cough congestion nasal production. Patient over the past 48 hours and started to develop chills and felt feverish, started to have productive green sputum and this morning noticed that her O2 saturation was in the mid 60s to 70s and subsequently came to the ER for acute COPD exacerbation. - Related Data Allergies/Adverse Reactions: Allergies Allergy/AdvReac Type Severity Reaction Status Date / Time No Known Allergies Allergy Verified 11/04/18 14:32 Home Medications: Home Meds ALPRAZolam [Xanax] 2 mg PO TID PRN 05/29/18 [History] Acetaminophen with Codeine [Tylenol with Codeine #4 Tablet] 1 - 2 tab PO Q4HR PRN 05/29/18 [History] Albuterol/Ipratropium [Combivent Respimat] 1 puff IH QID PRN 05/29/18 [History] Ipratropium/Albuterol Sulfate [Iprat-Albut 0.5-3(2.5) MG/3 ML] 3 ml NEB Q6HRRT PRN 05/29/18 [History] Amoxicillin 875 mg PO BID 10 Days #20 tab 11/04/18 [Rx] Budesonide [Pulmicort] 0.5 mg INH DAILY 11/04/18 [History] Fluticasone Propionate [Flonase] 1 - 2 puff NS DAILY 11/04/18 [History] busPIRone [Buspar] 15 mg PO BID 11/04/18 [History] predniSONE [Prednisone] 20 mg PO DAILY #5 tablet 11/04/18 [Rx] Past Medical History HEENT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: None Cardiovascular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: Other (See Below) 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 Respiratory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: COPD, Other (See Below) Other Respiratory History: emphsyema Gastrointestinal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: Bowel Obstruction Genitourinary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: None 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: Musculoskeletal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: Arthritis Neurological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: None Psychiatric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: Anxiety Endocrine/Metabolic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: None Hematologic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: None Immunologic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: None Oncologic (Cancer)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: None Dermatologic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: None - Infectious Disease History Infectious Disease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: Chicken Pox, Measles, Mumps - Past Surgical History Head Surgeries/Procedures: Reports: None HEENT Surgical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: Tonsillectomy Cardiovascular Surgical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: Cardiac Ablation Respiratory Surgical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: None GI Surgical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: Appendectomy, Colonoscopy, Other (See Below) Female Surgical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: Section, Tubal Ligation Endocrine Surgical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: None Neurological Surgical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: None Musculoskeletal Surgical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: None Oncologic Surgical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: None Dermatological Surgical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: None Social & Family History - Family History Family Medical History: Noncontributory - Tobacco Use Smoking Status *Q: Former Smoker Used Tobacco, but Quit: Yes Month/Year Tobacco Last Used: unk - Caffeine Use Caffeine Use: Reports: None Other Caffeine Use: 3cups/day - Recreational Drug Use Recreational Drug Use: No H&P Review of Systems - Review of Systems: Review Of Systems: ROS reveals no pertinent complaints other than HPI. Exam - Exam Exam: See Below - Vital Signs Vital Signs: Last Vital Signs Temp 37.7 C 11/04/18 14:29 Pulse 111 H 11/04/18 18:17 Resp 18 11/04/18 18:17 BP 131/89 11/04/18 18:17 Pulse Ox 85 L 11/04/18 18:17 Weight: 58.06 kg - Exam Quality Assessment: Supplemental Oxygen General: Alert, Oriented, Cooperative Neck: Supple Lungs: Decreased Breath Sounds, Crackles, Wheezing Cardiovascular: Regular Rate, Regular Rhythm GI/Abdominal Exam: Normal Bowel Sounds, Soft, Non-Tender Extremities: Normal Inspection, Normal Range of Motion - Patient Data Lab Results Last 24 hrs: Laboratory Results - last 24 hr 11/04/18 11/04/18 11/04/18 Range/Units 14:36 14:36 16:20 WBC 14.53 H (4.0-11.0) K/uL RBC 4.77 (4.30-5.90) M/uL Hgb 14.5 (12.0-16.0) g/dL Hct 42.8 (36.0-46.0) % MCV 89.7 (80.0-98.0) fL MCH 30.4 (27.0-32.0) pg MCHC 33.9 (31.0-37.0) g/dL RDW Std Deviation 45.0 (28.0-62.0) fl RDW Coeff of Shaq 14 (11.0-15.0) % Plt Count 245 (150-400) K/uL MPV 9.80 (7.40-12.00) fL Neut % (Auto) 86.4 H (48.0-80.0) % Lymph % (Auto) 6.1 L (16.0-40.0) % [place] % (Auto) 7.3 (0.0-15.0) % Eos % (Auto) 0.1 (0.0-7.0) % Baso % (Auto) 0.1 (0.0-1.5) % Neut # (Auto) 12.5 H (1.4-5.7) K/uL Lymph # (Auto) 0.9 (0.6-2.4) K/uL [place] # (Auto) 1.1 H (0.0-0.8) K/uL Eos # (Auto) 0.0 (0.0-0.7) K/uL Baso # (Auto) 0.0 (0.0-0.1) K/uL Nucleated RBC % 0.0 /100WBC Nucleated RBCs # 0 K/uL ABG pH 7.402 (7.35-7.45) ABG pCO2 41 (35-45) mmHG ABG pO2 48 L (75-100) mmHG ABG HCO3 25 (22-26) mEq/L ABG Total CO2 22.7 ABG Base Excess 0.5 (-2.0-2.0) Sodium 139 (136-145) mmol/L Potassium 3.8 (3.5-5.1) mmol/L Chloride 103 (98-107) mmol/L Carbon Dioxide 29.3 (21.0-32.0) mmol/L BUN 14 (7.0-18.0) mg/dL Creatinine 0.7 (0.6-1.0) mg/dL Est Cr Clr Drug Dosing 79.31 mL/min Estimated GFR (MDRD) > 60.0 ml/min Glucose 119 H (74-106) mg/dL Calcium 9.6 (8.5-10.1) mg/dL Total Bilirubin 0.7 (0.2-1.0) mg/dL AST 15 (15-37) IU/L ALT 9 L (14-63) IU/L Alkaline Phosphatase 92 (46-116) U/L Total Protein 8.0 (6.4-8.2) g/dL Albumin 4.1 (3.4-5.0) g/dL Globulin 3.9 (2.6-4.0) g/dL Albumin/Globulin Ratio 1.1 (0.9-1.6) Result Diagrams: 11/04/18 14:36 11/04/18 14:36 Yair Results Last 24 hrs: Microbiology 11/04/18 14:48 Influenza Type A Antigen Screen - Final Nasopharyngeal Swab NEGATIVE INFLUENZA A VIRUS AG Influenza Type B Antigen Screen - Final NEGATIVE INFLUENZA B VIRUS AG Problem List Initiated/Reviewed/Updated: Yes Orders Last 24hrs: Active Orders 24 hr Category Date Time Status Patient Status [ADT] Stat ADT 11/04/18 17:18 Active Antiembolic Devices [RC] PER UNIT ROUTINE Care 11/04/18 17:46 Active Height and Weight [RC] UPON Care 11/04/18 17:42 Active Intake and Output [RC] QSHIFT Care 11/04/18 17:42 Active Oxygen Therapy [RC] PRN Care 11/04/18 17:42 Active Peripheral IV Care [RC] . DIRECTED Care 11/04/18 17:42 Active Pulse Oximetry [RC] CONTINUOUS Care 11/04/18 17:42 Active RT Aerosol Therapy [RC] ASDIRECTED Care 11/04/18 14:52 Active RT Aerosol Therapy [RC] ASDIRECTED Care 11/04/18 15:30 Active RT Aerosol Therapy [RC] ASDIRECTED Care 11/04/18 17:46 Active Up With Assistance [RC] ASDIRECTED Care 11/04/18 17:42 Active VTE/DVT Education [RC] PER UNIT ROUTINE Care 11/04/18 17:42 Active Vital Signs [RC] Q4H Care 11/04/18 17:42 Active Regular Diet [DIET] Diet 11/04/18 Breakfast Active CBC WITH AUTO DIFF [HEME] AM Lab 11/05/18 05:11 Ordered COMPREHENSIVE METABOLIC PN,CMP [CHEM] AM Lab 11/05/18 05:11 Ordered CULTURE SPUTUM + SMEAR [RM] Stat Lab 11/04/18 18:19 Ordered UA RFX YAIR AND CULT IF INDIC [URIN] Routine Lab 11/04/18 17:49 Ordered Acetaminophen [Tylenol] Med 11/04/18 17:42 Active 650 mg PO Q4H PRN Albuterol/Ipratropium [DuoNeb 3.0-0.5 MG/3 ML] Med 11/04/18 18:00 Active 3 ml NEB Q6HRRT Azithromycin [Zithromax] 500 mg Med 11/04/18 18:15 Active Sodium Chloride 0.9% [Normal Saline] 250 ml IV Q24H Enoxaparin [Lovenox] Med 11/04/18 17:45 Active 40 mg SUBCUT Q24H Morphine Med 11/04/18 17:42 Active 2 mg IVPUSH Q2H PRN Ondansetron [Zofran] Med 11/04/18 17:42 Active 4 mg IVPUSH Q4H PRN Sodium Chloride 0.9% [Normal Saline] 1,000 ml Med 11/04/18 17:45 Active IV ASDIRECTED Sodium Chloride 0.9% [Saline Flush] Med 11/04/18 14:28 Active 10 ml FLUSH ASDIRECTED PRN Sodium Chloride 0.9% [Saline Flush] Med 11/04/18 17:42 Active 10 ml FLUSH ASDIRECTED PRN Sodium Chloride 0.9% [Saline Flush] Med 11/04/18 14:28 Active 2.5 ml FLUSH ASDIRECTED PRN Sodium Chloride 0.9% [Saline Flush] Med 11/04/18 17:42 Active 2.5 ml FLUSH ASDIRECTED PRN cefTRIAXone [Rocephin in Dextrose,Iso-Osm 1 GM/50 ML] 1 Med 11/04/18 17:45 Active gm Premix Bag 1 bag IV Q24H methylPREDNISolone Sod Succ [Solu-MEDROL] Med 11/04/18 17:45 Active 125 mg IVPUSH Q6H Peripheral IV Insertion Adult [OM.PC] Routine Oth 11/04/18 17:42 Ordered Saline Lock Insert [OM.PC] Routine Oth 11/04/18 17:42 Ordered Saline Lock Insert [OM.PC] Stat Oth 11/04/18 14:28 Ordered Sequential Compression Device [OM.PC] Per Unit Routine Ot 11/04/18 17:42 Ordered Medication Orders Acetaminophen (Tylenol) 650 mg PO Q4H PRN PRN Reason: Pain (Mild 1-3)/fever Albuterol/Ipratropium (Duoneb 3.0-0.5 Mg/3 Ml) 3 ml NEB Q6HRRT [facility] Last Admin: 11/04/18 18:15 Dose: 3 ml Enoxaparin Sodium (Lovenox) 40 mg SUBCUT Q24H [facility] Last Admin: 11/04/18 18:01 Dose: 40 mg Ceftriaxone Sodium/Dextrose 1 (gm/ Premix) 50 mls @ 100 mls/hr IV Q24H [facility] Last Admin: 11/04/18 18:01 Dose: 100 mls/hr Sodium Chloride (Normal Saline) 1,000 mls @ 125 mls/hr IV ASDIRECTED [facility] Azithromycin 500 mg/ Sodium (Chloride) 250 mls @ 250 mls/hr IV Q24H [facility] Last Admin: 11/04/18 18:15 Dose: 250 mls/hr Methylprednisolone Sodium Succinate (Solu-Medrol) 125 mg IVPUSH Q6H [facility] Morphine Sulfate (Morphine) 2 mg IVPUSH Q2H PRN PRN Reason: Pain (severe 7-10) Stop: 11/05/18 17:43 Ondansetron HCl (Zofran) 4 mg IVPUSH Q4H PRN PRN Reason: Nausea/Vomiting Sodium Chloride (Saline Flush) 10 ml FLUSH ASDIRECTED PRN PRN Reason: Keep Vein Open Last Admin: 11/04/18 14:58 Dose: 10 ml Sodium Chloride (Saline Flush) 2.5 ml FLUSH ASDIRECTED PRN PRN Reason: Keep Vein Open Last Admin: 11/04/18 14:58 Dose: 2.5 ml Sodium Chloride (Saline Flush) 10 ml FLUSH ASDIRECTED PRN PRN Reason: Keep Vein Open Sodium Chloride (Saline Flush) 2.5 ml FLUSH ASDIRECTED PRN PRN Reason: Keep Vein Open Assessment/Plan Comment:: This is a 57-year-old female with a significant past medical history of COPD currently being admitted for acute COPD exacerbation with possible pneumonia involvement based on her symptoms of productive green sputum, feeling feverish and having chills, and being hypoxic with a O2 sats ration less than 88% Plan: Patient has been admitted for acute COPD exacerbation with possible pneumonia involvement. Patient will be started on methylprednisolone 125 every 6 hours, DuoNeb's per RT scheduled every 4-6hours, O2 supplementation titrated as needed. -Patient will also have antibiotics started with ceftriaxone 1 g every 24 hours and azithromycin 500 mg IV. -Shall get labs in the a.m., continue to monitor the patient's status
[2018-11-04] MEDS: methylPREDNISolone Sodium Succinate 125 MG/2 ML SDV IVPUSH SCH ×2 (22:01→22:55)
[2018-11-04] MEDS: Sodium Chloride 0.9% 1,000 ML IV SCH (22:48)
[2018-11-05] MEDS: Acetaminophen 325 MG Tab PO PRN ×2 (05:29→23:25)
[2018-11-05] MEDS: methylPREDNISolone Sodium Succinate 125 MG/2 ML SDV IVPUSH SCH ×4 (05:30→23:27)
[2018-11-05 05:33] LABS: CHLORIDE,CL 106 mmol/L (98-107); SODIUM,NA 138 mmol/L (136-145)
[2018-11-05] MEDS: Albuterol/Ipratropium 3.0-0.5 MG/3 ML Neb Soln NEB SCH ×4 (06:08→23:27)
[2018-11-05] MEDS: Sodium Chloride 0.9% 1,000 ML IV SCH ×2 (07:36→15:39)
[2018-11-05] MEDS ORDERED: Morphine 2 MG/ML Syringe IVPUSH PRN (08:21)
[2018-11-05] MEDS: cefTRIAXone 1 GM in Sodium Chloride 0.9% 50 ML IV SCH (18:26)
[2018-11-05] MEDS: Enoxaparin 40 MG/0.4 ML Syringe SUBCUT SCH (18:28)
--- NOTE | 2018-11-05 18:41 | PCM.PN ---
<FullerGibran J - Last Filed: 11/05/18 23:00> - General Info Date of Service: 11/05/18 - Patient Data Vitals - Most Recent: Last Vital Signs Temp 36.2 C 11/05/18 16:00 Pulse 93 11/05/18 16:00 Resp 20 11/05/18 16:00 BP 120/93 H 11/05/18 16:00 Pulse Ox 92 L 11/05/18 17:42 I&O - Last 24 Hours: Intake & Output 11/05/18 11/05/18 11/06/18 14:59 22:59 06:59 Intake Total 2054 Output Total 1200 Balance 854 Lab Results Last 24 Hours: Laboratory Results - last 24 hr 11/04/18 11/05/18 11/05/18 Range/Units 23:00 04:40 04:40 WBC 11.43 H (4.0-11.0) K/uL RBC 4.12 L (4.30-5.90) M/uL Hgb 12.2 (12.0-16.0) g/dL Hct 36.5 (36.0-46.0) % MCV 88.6 (80.0-98.0) fL MCH 29.6 (27.0-32.0) pg MCHC 33.4 (31.0-37.0) g/dL RDW Std Deviation 43.8 (28.0-62.0) fl RDW Coeff of Shaq 14 (11.0-15.0) % Plt Count 191 (150-400) K/uL MPV 9.90 (7.40-12.00) fL Neut % (Auto) 93.1 H (48.0-80.0) % Lymph % (Auto) 5.9 L (16.0-40.0) % [place] % (Auto) 1.0 (0.0-15.0) % Eos % (Auto) 0.0 (0.0-7.0) % Baso % (Auto) 0.0 (0.0-1.5) % Neut # (Auto) 10.6 H (1.4-5.7) K/uL Lymph # (Auto) 0.7 (0.6-2.4) K/uL [place] # (Auto) 0.1 (0.0-0.8) K/uL Eos # (Auto) 0.0 (0.0-0.7) K/uL Baso # (Auto) 0.0 (0.0-0.1) K/uL Nucleated RBC % 0.0 /100WBC Nucleated RBCs # 0 K/uL Sodium 138 (136-145) mmol/L Potassium 3.9 (3.5-5.1) mmol/L Chloride 106 (98-107) mmol/L Carbon Dioxide 26.5 (21.0-32.0) mmol/L BUN 10 (7.0-18.0) mg/dL Creatinine 0.6 (0.6-1.0) mg/dL Est Cr Clr Drug Dosing 91.38 mL/min Estimated GFR (MDRD) > 60.0 ml/min Glucose 137 H (74-106) mg/dL Calcium 8.7 (8.5-10.1) mg/dL Total Bilirubin 0.6 (0.2-1.0) mg/dL AST 11 L (15-37) IU/L ALT 8 L (14-63) IU/L Alkaline Phosphatase 74 (46-116) U/L Total Protein 6.5 (6.4-8.2) g/dL Albumin 3.1 L (3.4-5.0) g/dL Globulin 3.4 (2.6-4.0) g/dL Albumin/Globulin Ratio 0.9 (0.9-1.6) Urine Color YELLOW Urine Appearance CLEAR Urine pH 6.0 (5.0-8.0) Ur Specific [place] 1.020 (1.001-1.035) Urine Protein NEGATIVE (NEGATIVE) mg/dL Urine Glucose (UA) NEGATIVE (NEGATIVE) mg/dL Urine Ketones NEGATIVE (NEGATIVE) mg/dL Urine Occult Blood NEGATIVE (NEGATIVE) Urine Nitrite NEGATIVE (NEGATIVE) Urine Bilirubin NEGATIVE (NEGATIVE) Urine Urobilinogen 0.2 (<2.0) EU/dL Ur Leukocyte Esterase NEGATIVE (NEGATIVE) Yair Results Last 24 Hours: Microbiology 11/04/18 19:30 Gram Stain - Preliminary Sputum - Expectorated Med Orders - Current: Current Medications Acetaminophen (Tylenol) 650 mg PO Q4H PRN PRN Reason: Pain (Mild 1-3)/fever Last Admin: 11/05/18 05:29 Dose: 650 mg Albuterol/Ipratropium (Duoneb 3.0-0.5 Mg/3 Ml) 3 ml NEB Q6HRRT [facility] Last Admin: 11/05/18 18:47 Dose: 3 ml Enoxaparin Sodium (Lovenox) 40 mg SUBCUT Q24H [facility] Last Admin: 11/05/18 18:28 Dose: 40 mg Sodium Chloride (Normal Saline) 1,000 mls @ 125 mls/hr IV ASDIRECTED [facility] Last Admin: 11/05/18 15:39 Dose: 125 mls/hr Azithromycin 500 mg/ Sodium (Chloride) 250 mls @ 250 mls/hr IV Q24H [facility] Last Admin: 11/05/18 19:08 Dose: 250 mls/hr Ceftriaxone Sodium 1 gm/ (Sodium Chloride) 50 mls @ 100 mls/hr IV DAILY@1800 [facility] Last Admin: 11/05/18 18:26 Dose: 100 mls/hr Methylprednisolone Sodium Succinate (Solu-Medrol) 125 mg IVPUSH Q6H [facility] Last Admin: 11/05/18 18:28 Dose: 125 mg Ondansetron HCl (Zofran) 4 mg IVPUSH Q4H PRN PRN Reason: Nausea/Vomiting Sodium Chloride (Saline Flush) 10 ml FLUSH ASDIRECTED PRN PRN Reason: Keep Vein Open Last Admin: 11/04/18 14:58 Dose: 10 ml Sodium Chloride (Saline Flush) 2.5 ml FLUSH ASDIRECTED PRN PRN Reason: Keep Vein Open Last Admin: 11/04/18 14:58 Dose: 2.5 ml Sodium Chloride (Saline Flush) 10 ml FLUSH ASDIRECTED PRN PRN Reason: Keep Vein Open Sodium Chloride (Saline Flush) 2.5 ml FLUSH ASDIRECTED PRN PRN Reason: Keep Vein Open Discontinued Medications Albuterol/Ipratropium (Duoneb 3.0-0.5 Mg/3 Ml) Confirm Administered Dose 3 ml .ROUTE .STK-MED ONE Stop: 11/04/18 14:24 Last Admin: 11/04/18 14:57 Dose: 3 ml Albuterol/Ipratropium (Duoneb 3.0-0.5 Mg/3 Ml) 3 ml NEB ONETIME ONE Stop: 11/04/18 14:53 Last Admin: 11/04/18 15:02 Dose: 3 ml Albuterol/Ipratropium (Duoneb 3.0-0.5 Mg/3 Ml) 3 ml NEB ONETIME ONE Stop: 11/04/18 15:31 Last Admin: 11/04/18 15:38 Dose: 3 ml Sodium Chloride (Normal Saline) 1,000 mls @ 999 mls/hr IV .Bolus ONE Stop: 11/04/18 15:28 Last Admin: 11/04/18 14:58 Dose: 999 mls/hr Azithromycin 500 mg/ Sodium (Chloride) 250 mls @ 250 mls/hr IV Q24H [facility] Last Admin: 11/04/18 18:16 Dose: Not Given Ceftriaxone Sodium/Dextrose 1 (gm/ Premix) 50 mls @ 100 mls/hr IV Q24H [facility] Last Admin: 11/04/18 18:01 Dose: 100 mls/hr Methylprednisolone Sodium Succinate (Solu-Medrol) 125 mg IVPUSH ONETIME ONE Stop: 11/04/18 14:29 Last Admin: 11/04/18 14:58 Dose: 125 mg Morphine Sulfate (Morphine) 2 mg IVPUSH Q2H PRN PRN Reason: Pain (severe 7-10) Stop: 11/05/18 17:43 Morphine Sulfate (Morphine) 2 mg IVPUSH Q2H PRN PRN Reason: Pain (severe 7-10) Stop: 11/05/18 17:43 - Problem List Review Problem List Initiated/Reviewed/Updated: Yes - My Orders Last 24 Hours: My Active Orders 11/05/18 03:23 Communication Order [RC] ROUTINE - Free Text/Narrative Note: I have seen and evaluated the patient. I have discussed findings and treatment plan with the resident. I agree with the assessment and plan outlined in the following note. <Russ Velasquez Z - Last Filed: 11/07/18 11:22> - General Info Subjective Update: Pt SOB improving still requiring 2L 02 support. - Patient Data Vitals - Most Recent: Last Vital Signs Temp 36.2 C 11/05/18 16:00 Pulse 93 11/05/18 16:00 Resp 20 11/05/18 16:00 BP 120/93 H 11/05/18 16:00 Pulse Ox 93 L 11/05/18 16:00 Weight - Most Recent: 57.334 kg I&O - Last 24 Hours: Intake & Output 11/05/18 11/05/18 11/05/18 06:59 14:59 22:59 Intake Total 1130 1754 Output Total 500 1200 Balance 630 554 Lab Results Last 24 Hours: Laboratory Results - last 24 hr 11/04/18 11/05/18 11/05/18 Range/Units 23:00 04:40 04:40 WBC 11.43 H (4.0-11.0) K/uL RBC 4.12 L (4.30-5.90) M/uL Hgb 12.2 (12.0-16.0) g/dL Hct 36.5 (36.0-46.0) % MCV 88.6 (80.0-98.0) fL MCH 29.6 (27.0-32.0) pg MCHC 33.4 (31.0-37.0) g/dL RDW Std Deviation 43.8 (28.0-62.0) fl RDW Coeff of Shaq 14 (11.0-15.0) % Plt Count 191 (150-400) K/uL MPV 9.90 (7.40-12.00) fL Neut % (Auto) 93.1 H (48.0-80.0) % Lymph % (Auto) 5.9 L (16.0-40.0) % [place] % (Auto) 1.0 (0.0-15.0) % Eos % (Auto) 0.0 (0.0-7.0) % Baso % (Auto) 0.0 (0.0-1.5) % Neut # (Auto) 10.6 H (1.4-5.7) K/uL Lymph # (Auto) 0.7 (0.6-2.4) K/uL [place] # (Auto) 0.1 (0.0-0.8) K/uL Eos # (Auto) 0.0 (0.0-0.7) K/uL Baso # (Auto) 0.0 (0.0-0.1) K/uL Nucleated RBC % 0.0 /100WBC Nucleated RBCs # 0 K/uL Sodium 138 (136-145) mmol/L Potassium 3.9 (3.5-5.1) mmol/L Chloride 106 (98-107) mmol/L Carbon Dioxide 26.5 (21.0-32.0) mmol/L BUN 10 (7.0-18.0) mg/dL Creatinine 0.6 (0.6-1.0) mg/dL Est Cr Clr Drug Dosing 91.38 mL/min Estimated GFR (MDRD) > 60.0 ml/min Glucose 137 H (74-106) mg/dL Calcium 8.7 (8.5-10.1) mg/dL Total Bilirubin 0.6 (0.2-1.0) mg/dL AST 11 L (15-37) IU/L ALT 8 L (14-63) IU/L Alkaline Phosphatase 74 (46-116) U/L Total Protein 6.5 (6.4-8.2) g/dL Albumin 3.1 L (3.4-5.0) g/dL Globulin 3.4 (2.6-4.0) g/dL Albumin/Globulin Ratio 0.9 (0.9-1.6) Urine Color YELLOW Urine Appearance CLEAR Urine pH 6.0 (5.0-8.0) Ur Specific [place] 1.020 (1.001-1.035) Urine Protein NEGATIVE (NEGATIVE) mg/dL Urine Glucose (UA) NEGATIVE (NEGATIVE) mg/dL Urine Ketones NEGATIVE (NEGATIVE) mg/dL Urine Occult Blood NEGATIVE (NEGATIVE) Urine Nitrite NEGATIVE (NEGATIVE) Urine Bilirubin NEGATIVE (NEGATIVE) Urine Urobilinogen 0.2 (<2.0) EU/dL Ur Leukocyte Esterase NEGATIVE (NEGATIVE) Yair Results Last 24 Hours: Microbiology 11/04/18 19:30 Gram Stain - Preliminary Sputum - Expectorated 11/04/18 14:48 Influenza Type A Antigen Screen - Final Nasopharyngeal Swab NEGATIVE INFLUENZA A VIRUS AG Influenza Type B Antigen Screen - Final NEGATIVE INFLUENZA B VIRUS AG Med Orders - Current: Current Medications Acetaminophen (Tylenol) 650 mg PO Q4H PRN PRN Reason: Pain (Mild 1-3)/fever Last Admin: 11/05/18 05:29 Dose: 650 mg Albuterol/Ipratropium (Duoneb 3.0-0.5 Mg/3 Ml) 3 ml NEB Q6HRRT [facility] Last Admin: 11/05/18 13:07 Dose: 3 ml Enoxaparin Sodium (Lovenox) 40 mg SUBCUT Q24H [facility] Last Admin: 11/05/18 18:28 Dose: 40 mg Sodium Chloride (Normal Saline) 1,000 mls @ 125 mls/hr IV ASDIRECTED [facility] Last Admin: 11/05/18 15:39 Dose: 125 mls/hr Azithromycin 500 mg/ Sodium (Chloride) 250 mls @ 250 mls/hr IV Q24H [facility] Last Admin: 11/04/18 18:15 Dose: 250 mls/hr Ceftriaxone Sodium 1 gm/ (Sodium Chloride) 50 mls @ 100 mls/hr IV DAILY@1800 [facility] Last Admin: 11/05/18 18:26 Dose: 100 mls/hr Methylprednisolone Sodium Succinate (Solu-Medrol) 125 mg IVPUSH Q6H [facility] Last Admin: 11/05/18 18:28 Dose: 125 mg Ondansetron HCl (Zofran) 4 mg IVPUSH Q4H PRN PRN Reason: Nausea/Vomiting Sodium Chloride (Saline Flush) 10 ml FLUSH ASDIRECTED PRN PRN Reason: Keep Vein Open Last Admin: 11/04/18 14:58 Dose: 10 ml Sodium Chloride (Saline Flush) 2.5 ml FLUSH ASDIRECTED PRN PRN Reason: Keep Vein Open Last Admin: 11/04/18 14:58 Dose: 2.5 ml Sodium Chloride (Saline Flush) 10 ml FLUSH ASDIRECTED PRN PRN Reason: Keep Vein Open Sodium Chloride (Saline Flush) 2.5 ml FLUSH ASDIRECTED PRN PRN Reason: Keep Vein Open Discontinued Medications Albuterol/Ipratropium (Duoneb 3.0-0.5 Mg/3 Ml) Confirm Administered Dose 3 ml .ROUTE .STK-MED ONE Stop: 11/04/18 14:24 Last Admin: 11/04/18 14:57 Dose: 3 ml Albuterol/Ipratropium (Duoneb 3.0-0.5 Mg/3 Ml) 3 ml NEB ONETIME ONE Stop: 11/04/18 14:53 Last Admin: 11/04/18 15:02 Dose: 3 ml Albuterol/Ipratropium (Duoneb 3.0-0.5 Mg/3 Ml) 3 ml NEB ONETIME ONE Stop: 11/04/18 15:31 Last Admin: 11/04/18 15:38 Dose: 3 ml Sodium Chloride (Normal Saline) 1,000 mls @ 999 mls/hr IV .Bolus ONE Stop: 11/04/18 15:28 Last Admin: 11/04/18 14:58 Dose: 999 mls/hr Azithromycin 500 mg/ Sodium (Chloride) 250 mls @ 250 mls/hr IV Q24H [facility] Last Admin: 11/04/18 18:16 Dose: Not Given Ceftriaxone Sodium/Dextrose 1 (gm/ Premix) 50 mls @ 100 mls/hr IV Q24H [facility] Last Admin: 11/04/18 18:01 Dose: 100 mls/hr Methylprednisolone Sodium Succinate (Solu-Medrol) 125 mg IVPUSH ONETIME ONE Stop: 11/04/18 14:29 Last Admin: 11/04/18 14:58 Dose: 125 mg Morphine Sulfate (Morphine) 2 mg IVPUSH Q2H PRN PRN Reason: Pain (severe 7-10) Stop: 11/05/18 17:43 Morphine Sulfate (Morphine) 2 mg IVPUSH Q2H PRN PRN Reason: Pain (severe 7-10) Stop: 11/05/18 17:43 - Exam General: Alert, Oriented Lungs: Normal Respiratory Effort, Decreased Breath Sounds, Wheezing Cardiovascular: Regular Rate, Regular Rhythm - Problem List Review Problem List Initiated/Reviewed/Updated: Yes - My Orders Last 24 Hours: My Active Orders 11/04/18 17:42 Intake and Output [RC] Q12H Oxygen Therapy [RC] PRN Peripheral IV Care [RC] . DIRECTED Pulse Oximetry [RC] CONTINUOUS Up With Assistance [RC] ASDIRECTED VTE/DVT Education [RC] PER UNIT ROUTINE Vital Signs [RC] Q4H Acetaminophen [Tylenol] 650 mg PO Q4H PRN Ondansetron [Zofran] 4 mg IVPUSH Q4H PRN Sodium Chloride 0.9% [Saline Flush] 10 ml FLUSH ASDIRECTED PRN Sodium Chloride 0.9% [Saline Flush] 2.5 ml FLUSH ASDIRECTED PRN Peripheral IV Insertion Adult [OM.PC] Routine Saline Lock Insert [OM.PC] Routine Sequential Compression Device [OM.PC] Per Unit Routine 11/04/18 17:45 Enoxaparin [Lovenox] 40 mg SUBCUT Q24H Sodium Chloride 0.9% [Normal Saline] 1,000 ml IV ASDIRECTED methylPREDNISolone Sod Succ [Solu-MEDROL] 125 mg IVPUSH Q6H 11/04/18 17:46 Antiembolic Devices [RC] PER UNIT ROUTINE RT Aerosol Therapy [RC] ASDIRECTED 11/04/18 18:00 Albuterol/Ipratropium [DuoNeb 3.0-0.5 MG/3 ML] 3 ml NEB Q6HRRT 11/04/18 18:15 Azithromycin [Zithromax] 500 mg Sodium Chloride 0.9% [Normal Saline] 250 ml IV Q24H 11/04/18 19:30 CULTURE SPUTUM + SMEAR [RM] Stat 11/05/18 18:00 cefTRIAXone [Rocephin] 1 gm Sodium Chloride 0.9% [Normal Saline] 50 ml IV DAILY@1800 - Plan Plan:: This is a 57-year-old female with a significant past medical history of COPD currently being admitted for acute COPD exacerbation with CAP pneumonia involvement based on her symptoms of productive green sputum, feeling feverish and having chills, and being hypoxic with a O2 sats ration less than 88% Plan: Patient has been admitted for acute COPD exacerbation with possible CAP pneumonia involvement. - Patient on methylprednisolone 125 every 6 hours, DuoNeb's per RT scheduled every 4-6hours, O2 supplementation titrated as needed. RT recommends getting a PFT study done outpatient after discharge. -Patient continued on antibiotics started with ceftriaxone 1 g every 24 hours and azithromycin 500 mg IV. Sputum Culture pending -Shall get labs in the a.m., continue to monitor the patient's status
[2018-11-05] MEDS: Azithromycin 500 MG in Sodium Chloride 0.9% 250 ML IV SCH (19:08)
[2018-11-06] MEDS: Sodium Chloride 0.9% 1,000 ML IV SCH ×2 (01:11→09:33)
[2018-11-06] MEDS: methylPREDNISolone Sodium Succinate 125 MG/2 ML SDV IVPUSH SCH ×4 (05:50→23:53)
[2018-11-06 06:08] LABS: CHLORIDE,CL 107 mmol/L (98-107); SODIUM,NA 141 mmol/L (136-145)
[2018-11-06] MEDS: Albuterol/Ipratropium 3.0-0.5 MG/3 ML Neb Soln NEB SCH ×4 (06:32→23:52)
--- NOTE | 2018-11-06 11:06 | PCM.PN ---
- General Info Date of Service: 11/06/18 Subjective Update: Pt is continuing to improve from a respiratory standpoint. States sputum is now clear in nature rather then the yellowish sputum she had earlier. - Patient Data Vitals - Most Recent: Last Vital Signs Temp 36.4 C 11/06/18 09:35 Pulse 83 11/06/18 09:35 Resp 18 11/06/18 09:35 BP 133/75 11/06/18 09:35 Pulse Ox 94 L 11/06/18 09:35 Weight - Most Recent: 57.334 kg I&O - Last 24 Hours: Intake & Output 11/05/18 11/06/18 11/06/18 22:59 06:59 14:59 Intake Total 2054 1449 Output Total 1200 1400 Balance 854 49 Lab Results Last 24 Hours: Laboratory Results - last 24 hr 11/06/18 11/06/18 Range/Units 05:30 05:30 WBC 11.22 H (4.0-11.0) K/uL RBC 3.90 L (4.30-5.90) M/uL Hgb 11.4 L (12.0-16.0) g/dL Hct 35.0 L (36.0-46.0) % MCV 89.7 (80.0-98.0) fL MCH 29.2 (27.0-32.0) pg MCHC 32.6 (31.0-37.0) g/dL RDW Std Deviation 44.6 (28.0-62.0) fl RDW Coeff of Shaq 14 (11.0-15.0) % Plt Count 201 (150-400) K/uL MPV 10.30 (7.40-12.00) fL Neut % (Auto) 89.7 H (48.0-80.0) % Lymph % (Auto) 6.0 L (16.0-40.0) % [place] % (Auto) 4.3 (0.0-15.0) % Eos % (Auto) 0.0 (0.0-7.0) % Baso % (Auto) 0.0 (0.0-1.5) % Neut # (Auto) 10.1 H (1.4-5.7) K/uL Lymph # (Auto) 0.7 (0.6-2.4) K/uL [place] # (Auto) 0.5 (0.0-0.8) K/uL Eos # (Auto) 0.0 (0.0-0.7) K/uL Baso # (Auto) 0.0 (0.0-0.1) K/uL Nucleated RBC % 0.0 /100WBC Nucleated RBCs # 0 K/uL Sodium 141 (136-145) mmol/L Potassium 3.9 (3.5-5.1) mmol/L Chloride 107 (98-107) mmol/L Carbon Dioxide 27.8 (21.0-32.0) mmol/L BUN 11 (7.0-18.0) mg/dL Creatinine 0.6 (0.6-1.0) mg/dL Est Cr Clr Drug Dosing 91.38 mL/min Estimated GFR (MDRD) > 60.0 ml/min Glucose 138 H (74-106) mg/dL Calcium 8.7 (8.5-10.1) mg/dL Total Bilirubin 0.3 (0.2-1.0) mg/dL AST 10 L (15-37) IU/L ALT 10 L (14-63) IU/L Alkaline Phosphatase 63 (46-116) U/L Total Protein 6.5 (6.4-8.2) g/dL Albumin 3.0 L (3.4-5.0) g/dL Globulin 3.5 (2.6-4.0) g/dL Albumin/Globulin Ratio 0.9 (0.9-1.6) Yair Results Last 24 Hours: Microbiology 11/04/18 19:30 Gram Stain - Final Sputum - Expectorated Sputum Culture - Preliminary Med Orders - Current: Current Medications Acetaminophen (Tylenol) 650 mg PO Q4H PRN PRN Reason: Pain (Mild 1-3)/fever Last Admin: 11/05/18 23:25 Dose: 650 mg Albuterol/Ipratropium (Duoneb 3.0-0.5 Mg/3 Ml) 3 ml NEB Q6HRRT REPLACED BY [facility] Last Admin: 11/06/18 06:32 Dose: 3 ml Enoxaparin Sodium (Lovenox) 40 mg SUBCUT Q24H REPLACED BY [facility] Last Admin: 11/05/18 18:28 Dose: 40 mg Sodium Chloride (Normal Saline) 1,000 mls @ 125 mls/hr IV ASDIRECTED REPLACED BY [facility] Last Admin: 11/06/18 09:33 Dose: 125 mls/hr Azithromycin 500 mg/ Sodium (Chloride) 250 mls @ 250 mls/hr IV Q24H REPLACED BY [facility] Last Admin: 11/05/18 19:08 Dose: 250 mls/hr Ceftriaxone Sodium 1 gm/ (Sodium Chloride) 50 mls @ 100 mls/hr IV DAILY@1800 [facility] Last Admin: 11/05/18 18:26 Dose: 100 mls/hr Methylprednisolone Sodium Succinate (Solu-Medrol) 125 mg IVPUSH Q6H [facility]PLACED BY [facility] Last Admin: 11/06/18 05:50 Dose: 125 mg Ondansetron HCl (Zofran) 4 mg IVPUSH Q4H PRN PRN Reason: Nausea/Vomiting Sodium Chloride (Saline Flush) 10 ml FLUSH ASDIRECTED PRN PRN Reason: Keep Vein Open Last Admin: 11/04/18 14:58 Dose: 10 ml Sodium Chloride (Saline Flush) 2.5 ml FLUSH ASDIRECTED PRN PRN Reason: Keep Vein Open Last Admin: 11/04/18 14:58 Dose: 2.5 ml Sodium Chloride (Saline Flush) 10 ml FLUSH ASDIRECTED PRN PRN Reason: Keep Vein Open Sodium Chloride (Saline Flush) 2.5 ml FLUSH ASDIRECTED PRN PRN Reason: Keep Vein Open Discontinued Medications Albuterol/Ipratropium (Duoneb 3.0-0.5 Mg/3 Ml) Confirm Administered Dose 3 ml .ROUTE .STK-MED ONE Stop: 11/04/18 14:24 Last Admin: 11/04/18 14:57 Dose: 3 ml Albuterol/Ipratropium (Duoneb 3.0-0.5 Mg/3 Ml) 3 ml NEB ONETIME ONE Stop: 11/04/18 14:53 Last Admin: 11/04/18 15:02 Dose: 3 ml Albuterol/Ipratropium (Duoneb 3.0-0.5 Mg/3 Ml) 3 ml NEB ONETIME ONE Stop: 11/04/18 15:31 Last Admin: 11/04/18 15:38 Dose: 3 ml Sodium Chloride (Normal Saline) 1,000 mls @ 999 mls/hr IV .Bolus ONE Stop: 11/04/18 15:28 Last Admin: 11/04/18 14:58 Dose: 999 mls/hr Azithromycin 500 mg/ Sodium (Chloride) 250 mls @ 250 mls/hr IV Q24H REPLACED BY [facility] Last Admin: 11/04/18 18:16 Dose: Not Given Ceftriaxone Sodium/Dextrose 1 (gm/ Premix) 50 mls @ 100 mls/hr IV Q24H REPLACED BY [facility] Last Admin: 11/04/18 18:01 Dose: 100 mls/hr Methylprednisolone Sodium Succinate (Solu-Medrol) 125 mg IVPUSH ONETIME ONE Stop: 11/04/18 14:29 Last Admin: 11/04/18 14:58 Dose: 125 mg Morphine Sulfate (Morphine) 2 mg IVPUSH Q2H PRN PRN Reason: Pain (severe 7-10) Stop: 11/05/18 17:43 Morphine Sulfate (Morphine) 2 mg IVPUSH Q2H PRN PRN Reason: Pain (severe 7-10) Stop: 11/05/18 17:43 - Exam Quality Assessment: Supplemental Oxygen General: Alert, Oriented, Cooperative Lungs: Normal Respiratory Effort, Wheezing Cardiovascular: Regular Rate, Regular Rhythm GI/Abdominal Exam: Normal Bowel Sounds - Problem List Review Problem List Initiated/Reviewed/Updated: Yes - My Orders Last 24 Hours: My Active Orders 11/05/18 18:00 cefTRIAXone [Rocephin] 1 gm Sodium Chloride 0.9% [Normal Saline] 50 ml IV DAILY@1800 - Plan Plan:: This is a 57-year-old female with a significant past medical history of COPD currently being admitted for acute COPD exacerbation with possible pneumonia involvement based on her symptoms of productive green sputum, feeling feverish and having chills, and being hypoxic with a O2 sats ration less than 88% Plan: Patient has been admitted for acute COPD exacerbation with possible pneumonia involvement. Patient will be started on methylprednisolone 125 every 6 hours, DuoNeb's per RT scheduled every 4-6hours, O2 supplementation titrated as needed. -Patient will also have antibiotics started with ceftriaxone 1 g every 24 hours and azithromycin 500 mg IV. -Pt does state she is doing much better since interventions have started. Her O2 requirements have improved. Currently on 1.5 L with O2 Sat at 91 -Shall continue to titrate the pts O2 levels. Anticipating d/c in the AM.
[2018-11-06] MEDS: cefTRIAXone 1 GM in Sodium Chloride 0.9% 50 ML IV SCH (18:03)
[2018-11-06] MEDS: Enoxaparin 40 MG/0.4 ML Syringe SUBCUT SCH (18:10)
[2018-11-06] MEDS: Azithromycin 500 MG in Sodium Chloride 0.9% 250 ML IV SCH (18:49)
[2018-11-07] MEDS: Albuterol/Ipratropium 3.0-0.5 MG/3 ML Neb Soln NEB SCH ×4 (05:30→23:28)
[2018-11-07] MEDS: methylPREDNISolone Sodium Succinate 125 MG/2 ML SDV IVPUSH SCH ×4 (05:30→23:29)
[2018-11-07 06:49] LABS: CHLORIDE,CL 104 mmol/L (98-107); SODIUM,NA 141 mmol/L (136-145)
--- NOTE | 2018-11-07 11:19 | PCM.PN ---
- General Info Date of Service: 11/07/18 Subjective Update: Patient is doing better from a SOB standpoint but is still requiring O2 support on activity. - Patient Data Vitals - Most Recent: Last Vital Signs Temp 36.2 C 11/07/18 09:00 Pulse 67 11/07/18 09:00 Resp 16 11/07/18 09:00 BP 152/80 H 11/07/18 09:00 Pulse Ox 89 L 11/07/18 09:00 Weight - Most Recent: 57.334 kg I&O - Last 24 Hours: Intake & Output 11/06/18 11/07/18 11/07/18 22:59 06:59 14:59 Intake Total 2600 500 Output Total 900 2100 Balance 1700 -1600 Lab Results Last 24 Hours: Laboratory Results - last 24 hr 11/07/18 11/07/18 Range/Units 05:58 05:58 WBC 11.66 H (4.0-11.0) K/uL RBC 4.11 L (4.30-5.90) M/uL Hgb 12.1 (12.0-16.0) g/dL Hct 36.9 (36.0-46.0) % MCV 89.8 (80.0-98.0) fL MCH 29.4 (27.0-32.0) pg MCHC 32.8 (31.0-37.0) g/dL RDW Std Deviation 45.5 (28.0-62.0) fl RDW Coeff of Shaq 14 (11.0-15.0) % Plt Count 253 (150-400) K/uL MPV 10.40 (7.40-12.00) fL Add Manual Diff YES Neutrophils % (Manual) 92 H (48.0-80.0) % Band Neutrophils % 2 % Lymphocytes % (Manual) 4 L (16.0-40.0) % Monocytes % (Manual) 2 (0.0-15.0) % Nucleated RBC % 0.0 /100WBC Absolute Seg Neuts 10.7 H (1.4-5.7) Band Neutrophils # 0.2 Lymphocytes # (Manual) 0.5 L (0.6-2.4) Monocytes # (Manual) 0.2 (0.0-0.8) Nucleated RBCs # 0 K/uL Sodium 141 (136-145) mmol/L Potassium 3.5 (3.5-5.1) mmol/L Chloride 104 (98-107) mmol/L Carbon Dioxide 30.1 (21.0-32.0) mmol/L BUN 10 (7.0-18.0) mg/dL Creatinine 0.6 (0.6-1.0) mg/dL Est Cr Clr Drug Dosing 91.38 mL/min Estimated GFR (MDRD) > 60.0 ml/min Glucose 126 H (74-106) mg/dL Calcium 9.1 (8.5-10.1) mg/dL Total Bilirubin 0.4 (0.2-1.0) mg/dL AST 12 L (15-37) IU/L ALT 12 L (14-63) IU/L Alkaline Phosphatase 65 (46-116) U/L Total Protein 6.9 (6.4-8.2) g/dL Albumin 3.3 L (3.4-5.0) g/dL Globulin 3.6 (2.6-4.0) g/dL Albumin/Globulin Ratio 0.9 (0.9-1.6) Yair Results Last 24 Hours: Microbiology 11/04/18 19:30 Gram Stain - Final Sputum - Expectorated Sputum Culture - Final Streptococcus Pneumoniae YEAST Normal Respiratory Brittany Med Orders - Current: Current Medications Acetaminophen (Tylenol) 650 mg PO Q4H PRN PRN Reason: Pain (Mild 1-3)/fever Last Admin: 11/05/18 23:25 Dose: 650 mg Albuterol/Ipratropium (Duoneb 3.0-0.5 Mg/3 Ml) 3 ml NEB Q6HRRT [facility] Last Admin: 11/07/18 05:30 Dose: 3 ml Enoxaparin Sodium (Lovenox) 40 mg SUBCUT Q24H [facility] Last Admin: 11/06/18 18:10 Dose: 40 mg Azithromycin 500 mg/ Sodium (Chloride) 250 mls @ 250 mls/hr IV Q24H [facility] Last Admin: 11/06/18 18:49 Dose: 250 mls/hr Ceftriaxone Sodium 1 gm/ (Sodium Chloride) 50 mls @ 100 mls/hr IV DAILY@1800 [facility] Last Admin: 11/06/18 18:03 Dose: 100 mls/hr Methylprednisolone Sodium Succinate (Solu-Medrol) 125 mg IVPUSH Q6H [facility] Last Admin: 11/07/18 05:30 Dose: 125 mg Ondansetron HCl (Zofran) 4 mg IVPUSH Q4H PRN PRN Reason: Nausea/Vomiting Sodium Chloride (Saline Flush) 10 ml FLUSH ASDIRECTED PRN PRN Reason: Keep Vein Open Last Admin: 11/04/18 14:58 Dose: 10 ml Sodium Chloride (Saline Flush) 2.5 ml FLUSH ASDIRECTED PRN PRN Reason: Keep Vein Open Last Admin: 11/04/18 14:58 Dose: 2.5 ml Sodium Chloride (Saline Flush) 10 ml FLUSH ASDIRECTED PRN PRN Reason: Keep Vein Open Sodium Chloride (Saline Flush) 2.5 ml FLUSH ASDIRECTED PRN PRN Reason: Keep Vein Open Discontinued Medications Albuterol/Ipratropium (Duoneb 3.0-0.5 Mg/3 Ml) Confirm Administered Dose 3 ml .ROUTE .STK-MED ONE Stop: 11/04/18 14:24 Last Admin: 11/04/18 14:57 Dose: 3 ml Albuterol/Ipratropium (Duoneb 3.0-0.5 Mg/3 Ml) 3 ml NEB ONETIME ONE Stop: 11/04/18 14:53 Last Admin: 11/04/18 15:02 Dose: 3 ml Albuterol/Ipratropium (Duoneb 3.0-0.5 Mg/3 Ml) 3 ml NEB ONETIME ONE Stop: 11/04/18 15:31 Last Admin: 11/04/18 15:38 Dose: 3 ml Sodium Chloride (Normal Saline) 1,000 mls @ 999 mls/hr IV .Bolus ONE Stop: 11/04/18 15:28 Last Admin: 11/04/18 14:58 Dose: 999 mls/hr Azithromycin 500 mg/ Sodium (Chloride) 250 mls @ 250 mls/hr IV Q24H [facility] Last Admin: 11/04/18 18:16 Dose: Not Given Ceftriaxone Sodium/Dextrose 1 (gm/ Premix) 50 mls @ 100 mls/hr IV Q24H [facility] Last Admin: 11/04/18 18:01 Dose: 100 mls/hr Sodium Chloride (Normal Saline) 1,000 mls @ 125 mls/hr IV ASDIRECTED [facility] Last Admin: 11/06/18 09:33 Dose: 125 mls/hr Methylprednisolone Sodium Succinate (Solu-Medrol) 125 mg IVPUSH ONETIME ONE Stop: 11/04/18 14:29 Last Admin: 11/04/18 14:58 Dose: 125 mg Morphine Sulfate (Morphine) 2 mg IVPUSH Q2H PRN PRN Reason: Pain (severe 7-10) Stop: 11/05/18 17:43 Morphine Sulfate (Morphine) 2 mg IVPUSH Q2H PRN PRN Reason: Pain (severe 7-10) Stop: 11/05/18 17:43 - Exam Quality Assessment: Supplemental Oxygen General: Alert, Oriented, Cooperative Lungs: Normal Respiratory Effort, Decreased Breath Sounds Cardiovascular: Regular Rate, Regular Rhythm GI/Abdominal Exam: Normal Bowel Sounds - Problem List Review Problem List Initiated/Reviewed/Updated: Yes - Plan Plan:: This is a 57-year-old female with a significant past medical history of COPD currently being admitted for acute COPD exacerbation with CAP pneumonia. Pts Sputum culture is growing S. Pneumo. Plan: -Continue with O2 support, Methylprednisolone, and Douneb's for his Acute exacerbation of COPD. Continue to titrate O2 as needed. -For his CAP Pneumo. which is growing S. Pneumo based on Sputum culture. Her M.I.C. indicates resistance to Azithromycin and sensitive to Rocephin. Shall D/c the Azithromycin and continue with Rocephin until discharge at which point patient can be sent home on Augmentin. -Pt does state she is doing much better since interventions have started. Her O2 requirements have improved. Currently on 1.5 L with O2 Sat at 91 -Shall continue to titrate the pts O2 levels.
[2018-11-07] MEDS: cefTRIAXone 1 GM in Sodium Chloride 0.9% 50 ML IV SCH (18:30)
[2018-11-07] MEDS: Enoxaparin 40 MG/0.4 ML Syringe SUBCUT SCH (18:31)
[2018-11-08] MEDS: methylPREDNISolone Sodium Succinate 125 MG/2 ML SDV IVPUSH SCH ×2 (05:11→12:00)
[2018-11-08] MEDS: Albuterol/Ipratropium 3.0-0.5 MG/3 ML Neb Soln NEB SCH ×2 (05:12→11:28)
[2018-11-08 06:42] LABS: CHLORIDE,CL 100 mmol/L (98-107); SODIUM,NA 139 mmol/L (136-145)
[2018-11-08] MEDS ORDERED: cefTRIAXone 1 GM in Premix Bag 1 BAG IV SCH (10:41)
--- NOTE | 2018-11-08 12:48 | PCM.DCSUM1 ---
Discharge Summary - Discharge Data Discharge Date: 11/08/18 Discharge Disposition: Home, Self-Care 01 Condition: Stable - Patient Summary/Data Consults: Consultations 11/07/18 11:28 Consult to Occupational Therapy [OT Evaluation and Treatment] [CONS] Routine PT Evaluation and Treatment [CONS] Routine Hospital Course: 58 yo female admitted for COPD exacerbation when she presented with productive cough, fevers, and chills for past week. Patient was noted to be sating in mid 80s and had wheezing and ronchi on lung exam. Her WBC was 14,000. CXR reported no infiltrates. She was treated with supplemental oxygen via nasal cunula, IV solumedrol, Rocephin and azithromycin. Her sputum cultures grew out strep pneumonia. She was weened off nasal canula oxygen and discharged home with five more days of Augmentin and prednisone. - Discharge Plan *PRESCRIPTION DRUG MONITORING PROGRAM REVIEWED*: No *COPY OF PRESCRIPTION DRUG MONITORING REPORT IN PATIENT CHELSIE: No Prescriptions/Med Rec: Amoxicillin/Potassium Clav [Augmentin 875-125 Tablet] 1 each PO BID #10 tablet predniSONE [Prednisone] 20 mg PO DAILY #5 tablet Home Medications: Home Meds ALPRAZolam [Xanax] 2 mg PO TID PRN 05/29/18 [History] Acetaminophen with Codeine [Tylenol with Codeine #4 Tablet] 1 - 2 tab PO Q4HR PRN 05/29/18 [History] Albuterol/Ipratropium [Combivent Respimat] 1 puff IH QID PRN 05/29/18 [History] Ipratropium/Albuterol Sulfate [Iprat-Albut 0.5-3(2.5) MG/3 ML] 3 ml NEB Q6HRRT PRN 05/29/18 [History] Budesonide [Pulmicort] 0.5 mg INH DAILY 11/04/18 [History] Fluticasone Propionate [Flonase] 1 - 2 puff NS DAILY 11/04/18 [History] busPIRone [Buspar] 15 mg PO BID 11/04/18 [History] predniSONE [Prednisone] 20 mg PO DAILY #5 tablet 11/04/18 [Rx] Amoxicillin/Potassium Clav [Augmentin 875-125 Tablet] 1 each PO BID #10 tablet 11/08/18 [Rx] Forms: ED Department Discharge Referrals: PCP,Unknown [Ordering Only Provider] - - Discharge Summary/Plan Comment DC Time >30 min.: No - Patient Data Vitals - Most Recent: Last Vital Signs Temp 36.6 C 11/08/18 11:49 Pulse 74 11/08/18 11:49 Resp 16 11/08/18 11:49 BP 143/92 H 11/08/18 11:49 Pulse Ox 92 L 11/08/18 11:49 Weight - Most Recent: 57.334 kg I&O - Last 24 hours: Intake & Output 11/07/18 11/08/18 11/08/18 22:59 06:59 14:59 Intake Total 1490 830 Output Total 2500 2700 Balance -1010 -1870 Lab Results - Last 24 hrs: Laboratory Results - last 24 hr 11/08/18 11/08/18 Range/Units 05:44 05:44 WBC 9.50 (4.0-11.0) K/uL RBC 4.53 (4.30-5.90) M/uL Hgb 13.1 (12.0-16.0) g/dL Hct 40.4 (36.0-46.0) % MCV 89.2 (80.0-98.0) fL MCH 28.9 (27.0-32.0) pg MCHC 32.4 (31.0-37.0) g/dL RDW Std Deviation 44.2 (28.0-62.0) fl RDW Coeff of Shaq 14 (11.0-15.0) % Plt Count 286 (150-400) K/uL MPV 10.10 (7.40-12.00) fL Neut % (Auto) 88.3 H (48.0-80.0) % Lymph % (Auto) 7.1 L (16.0-40.0) % Woodruff % (Auto) 4.5 (0.0-15.0) % Eos % (Auto) 0.0 (0.0-7.0) % Baso % (Auto) 0.1 (0.0-1.5) % Neut # (Auto) 8.4 H (1.4-5.7) K/uL Lymph # (Auto) 0.7 (0.6-2.4) K/uL Woodruff # (Auto) 0.4 (0.0-0.8) K/uL Eos # (Auto) 0.0 (0.0-0.7) K/uL Baso # (Auto) 0.0 (0.0-0.1) K/uL Nucleated RBC % 0.0 /100WBC Nucleated RBCs # 0 K/uL Sodium 139 (136-145) mmol/L Potassium 3.4 L (3.5-5.1) mmol/L Chloride 100 (98-107) mmol/L Carbon Dioxide 33.2 H (21.0-32.0) mmol/L BUN 14 (7.0-18.0) mg/dL Creatinine 0.7 (0.6-1.0) mg/dL Est Cr Clr Drug Dosing 77.36 mL/min Estimated GFR (MDRD) > 60.0 ml/min Glucose 122 H (74-106) mg/dL Calcium 9.6 (8.5-10.1) mg/dL Total Bilirubin 0.4 (0.2-1.0) mg/dL AST 14 L (15-37) IU/L ALT 15 (14-63) IU/L Alkaline Phosphatase 69 (46-116) U/L Total Protein 7.4 (6.4-8.2) g/dL Albumin 3.7 (3.4-5.0) g/dL Globulin 3.7 (2.6-4.0) g/dL Albumin/Globulin Ratio 1.0 (0.9-1.6) JEFFRY Results - Last 24 hrs: Microbiology 11/04/18 19:30 Gram Stain - Final Sputum - Expectorated Sputum Culture - Final Streptococcus Pneumoniae YEAST Normal Respiratory Brittany Med Orders - Current: Current Medications Acetaminophen (Tylenol) 650 mg PO Q4H PRN PRN Reason: Pain (Mild 1-3)/fever Last Admin: 11/05/18 23:25 Dose: 650 mg Albuterol/Ipratropium (Duoneb 3.0-0.5 Mg/3 Ml) 3 ml NEB Q6HRRT [facility] Last Admin: 11/08/18 11:28 Dose: 3 ml Enoxaparin Sodium (Lovenox) 40 mg SUBCUT Q24H [facility] Last Admin: 11/07/18 18:31 Dose: 40 mg Ceftriaxone Sodium/Dextrose 1 (gm/ Premix) 50 mls @ 100 mls/hr IV DAILY@1800 [facility] Methylprednisolone Sodium Succinate (Solu-Medrol) 125 mg IVPUSH Q6H [facility] Last Admin: 11/08/18 05:11 Dose: 125 mg Ondansetron HCl (Zofran) 4 mg IVPUSH Q4H PRN PRN Reason: Nausea/Vomiting Sodium Chloride (Saline Flush) 10 ml FLUSH ASDIRECTED PRN PRN Reason: Keep Vein Open Last Admin: 11/04/18 14:58 Dose: 10 ml Sodium Chloride (Saline Flush) 2.5 ml FLUSH ASDIRECTED PRN PRN Reason: Keep Vein Open Last Admin: 11/04/18 14:58 Dose: 2.5 ml Sodium Chloride (Saline Flush) 10 ml FLUSH ASDIRECTED PRN PRN Reason: Keep Vein Open Sodium Chloride (Saline Flush) 2.5 ml FLUSH ASDIRECTED PRN PRN Reason: Keep Vein Open Discontinued Medications Albuterol/Ipratropium (Duoneb 3.0-0.5 Mg/3 Ml) Confirm Administered Dose 3 ml .ROUTE .STK-MED ONE Stop: 11/04/18 14:24 Last Admin: 11/04/18 14:57 Dose: 3 ml Albuterol/Ipratropium (Duoneb 3.0-0.5 Mg/3 Ml) 3 ml NEB ONETIME ONE Stop: 11/04/18 14:53 Last Admin: 11/04/18 15:02 Dose: 3 ml Albuterol/Ipratropium (Duoneb 3.0-0.5 Mg/3 Ml) 3 ml NEB ONETIME ONE Stop: 11/04/18 15:31 Last Admin: 11/04/18 15:38 Dose: 3 ml Sodium Chloride (Normal Saline) 1,000 mls @ 999 mls/hr IV .Bolus ONE Stop: 11/04/18 15:28 Last Admin: 11/04/18 14:58 Dose: 999 mls/hr Azithromycin 500 mg/ Sodium (Chloride) 250 mls @ 250 mls/hr IV Q24H [facility] Last Admin: 11/04/18 18:16 Dose: Not Given Ceftriaxone Sodium/Dextrose 1 (gm/ Premix) 50 mls @ 100 mls/hr IV Q24H [facility] Last Admin: 11/04/18 18:01 Dose: 100 mls/hr Sodium Chloride (Normal Saline) 1,000 mls @ 125 mls/hr IV ASDIRECTED [facility] Last Admin: 11/06/18 09:33 Dose: 125 mls/hr Azithromycin 500 mg/ Sodium (Chloride) 250 mls @ 250 mls/hr IV Q24H [facility] Last Admin: 11/06/18 18:49 Dose: 250 mls/hr Ceftriaxone Sodium 1 gm/ (Sodium Chloride) 50 mls @ 100 mls/hr IV DAILY@1800 [facility] Last Admin: 11/07/18 18:30 Dose: 100 mls/hr Methylprednisolone Sodium Succinate (Solu-Medrol) 125 mg IVPUSH ONETIME ONE Stop: 11/04/18 14:29 Last Admin: 11/04/18 14:58 Dose: 125 mg Morphine Sulfate (Morphine) 2 mg IVPUSH Q2H PRN PRN Reason: Pain (severe 7-10) Stop: 11/05/18 17:43 Morphine Sulfate (Morphine) 2 mg IVPUSH Q2H PRN PRN Reason: Pain (severe 7-10) Stop: 11/05/18 17:43
== END 2018-11-08 14:55 | disposition home or self-care (01) | DRG 190 ==
LOC: MW.ED 14:19 → MW.MS 17:18 → OBSVTOIN 11-07 12:15
PROVIDERS: ADMIT Internal Medicine; ATTEND Internal Medicine
DX: J44.1 Chronic obstructive pulmonary disease with (acute) exacerbation (principal); J18.9 Pneumonia, unspecified organism; J44.0 Chronic obstructive pulmonary disease with (acute) lower respiratory infection; M19.90 Unspecified osteoarthritis, unspecified site; R09.02 Hypoxemia; F41.9 Anxiety disorder, unspecified; R06.02 Shortness of breath; Z79.899 Other long term (current) drug therapy; Z79.52 Long term (current) use of systemic steroids; Z98.891 History of uterine scar from previous surgery; Z87.891 Personal history of nicotine dependence
CPT/HCPCS: 36415 ×4; 36600; 71045; 80053 ×4; 81003; 82803; 85025 ×4; 87070; 87205; 87804 ×2; 94640 ×8; 96361; 96374; 99285; A9270 ×2; J0456 ×3; J0696 ×3; J1650 ×3; J2930 ×12; J7040 ×6; J7050 ×5; 87077; 87186; J7620-GY

== ENCOUNTER 2019-07-11 22:50 | Emergency (ER) | payer BC, MEDICARE ==
[2019-07-11] MEDS ORDERED: Sodium Chloride 0.9% 1,000 ML IV ONE (22:52)
[2019-07-11] MEDS ORDERED: Metoclopramide 10 MG/2 ML SDV IVPUSH ONE (22:52)
--- NOTE | 2019-07-11 22:53 | EDM.PDOC ---
ED HPI GENERAL MEDICAL PROBLEM - General Chief Complaint: Abdominal Pain Stated Complaint: ABDOMINAL PAIN Time Seen by Provider: 07/11/19 22:53 Source of Information: Reports: Patient - History of Present Illness INITIAL COMMENTS - FREE TEXT/NARRATIVE: HISTORY AND PHYSICAL: History of present illness: [Patient presents with diffuse abdominal pain 8 out of 10, she states she has had constipation over the last couple of days], she had sat on the toilet to go to the bathroom and developed the 8 out of 10 pain and presents via EMS as such No fever nausea vomiting chills sweats no chest pain shortness breath headache dizziness palpitation no urine symptoms Review of systems: As per history of present illness and below otherwise all systems reviewed and negative. Past medical history: As per history of present illness and as reviewed below otherwise noncontributory. Surgical history: As per history of present illness and as reviewed below otherwise noncontributory. Social history: No reported history of drug or alcohol abuse. Family history: As per history of present illness and as reviewed below otherwise noncontributory. Physical exam: HEENT: Atraumatic, normocephalic, pupils reactive, negative for conjunctival pallor or scleral icterus, mucous membranes moist, throat clear, neck supple, nontender, trachea midline. Lungs: Clear to auscultation, breath sounds equal bilaterally, chest nontender. Heart: S1S2, regular, negative for clicks, rubs, or JVD. Abdomen: Soft, slightly distended diffusely tender abdomen, NO or masses or hepatosplenomegaly. Negative for costovertebral tenderness. Pelvis: Stable nontender. Genitourinary: Deferred. Rectal: Deferred. Extremities: Atraumatic, negative for cords or calf pain. Neurovascular unremarkable. Neuro: Awake, alert, oriented. Cranial nerves II through XII unremarkable. Cerebellum unremarkable. Motor and sensory unremarkable throughout. Exam nonfocal. Diagnostics: [CBC CMP UA troponin lipase blood cultures 2 ] T abdomen pelvis no contrast Therapeutics: [ saline Toradol Ativan Dilaudid Zosyn consult gen surgeon : dr dinero , he is arranging transport to [place] ] Impression: [ perforated sigmoid colon ]Chronic history of baseline Definitive disposition and diagnosis as appropriate pending reevaluation and review of above. abdomen Pain Score (Numeric/FACES): 10 - Related Data Allergies Allergy/AdvReac Type Severity Reaction Status Date / Time No Known Allergies Allergy Verified 11/04/18 14:32 Home Meds: Home Meds ALPRAZolam [Xanax] 0 mg PO ASDIRECTED PRN 05/29/18 [History] Albuterol/Ipratropium [Combivent Respimat] 1 puff IH QID PRN 05/29/18 [History] Ipratropium/Albuterol Sulfate [Iprat-Albut 0.5-3(2.5) MG/3 ML] 3 ml NEB Q6HRRT PRN 05/29/18 [History] Budesonide [Pulmicort] 0 mg INH DAILY 11/04/18 [History] Fluticasone Propionate [Flonase] 1 - 2 puff NS DAILY 11/04/18 [History] busPIRone [Buspar] 0 mg PO BID 11/04/18 [History] predniSONE [Prednisone] 20 mg PO ASDIRECTED 07/11/19 [History] Past Medical History HEENT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: None Cardiovascular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: Heart Murmur, Other (See Below) 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 Respiratory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: COPD, Other (See Below) Other Respiratory History: emphsyema Gastrointestinal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: Bowel Obstruction Genitourinary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: 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: Musculoskeletal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: Arthritis Neurological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: None Psychiatric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: Anxiety Endocrine/Metabolic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: None Hematologic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: None Immunologic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: None Oncologic (Cancer)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: None Dermatologic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: None - Infectious Disease History Infectious Disease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: Chicken Pox, Measles, Mumps - Past Surgical History Head Surgeries/Procedures: Reports: None HEENT Surgical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: Tonsillectomy Cardiovascular Surgical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: Cardiac Ablation Respiratory Surgical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: None GI Surgical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: Appendectomy, Colonoscopy, Other (See Below) Female Surgical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: Section, Tubal Ligation Endocrine Surgical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: None Neurological Surgical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: None Musculoskeletal Surgical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: None Oncologic Surgical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: None Dermatological Surgical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: None Social & Family History - Family History Family Medical History: Noncontributory - Caffeine Use Caffeine Use: Reports: Coffee Other Caffeine Use: 3cups/day ED ROS GENERAL - Review of Systems Review Of Systems: See Below ED EXAM, GENERAL - Physical Exam Exam: See Below Course - Vital Signs Last Recorded V/S: Last Vital Signs Temp 95.7 F 07/12/19 01:11 Pulse 95 07/12/19 01:11 Resp 18 07/12/19 01:11 BP 120/80 07/12/19 01:11 Pulse Ox 95 07/12/19 01:11 - Orders/Labs/Meds Orders: Active Orders 24 hr Category Date Time Status Notify Provider Consults [RC] ASDIRECTED Care 07/12/19 01:03 Active Consult to Physician [CONS] Stat Cons 07/12/19 01:01 Active CULTURE BLOOD [BC] Stat Lab 07/12/19 00:27 Ordered CULTURE BLOOD [BC] Stat Lab 07/12/19 00:27 Ordered UA RFX JEFFRY AND CULT IF INDIC [URIN] Stat Lab 07/11/19 22:52 Ordered Blood Culture x2 Reflex Set [OM.PC] Stat Oth 07/12/19 00:27 Ordered Labs: Laboratory Tests 07/11/19 07/11/19 Range/Units 22:50 22:50 WBC 8.32 (4.0-11.0) K/uL RBC 5.33 (4.30-5.90) M/uL Hgb 15.6 (12.0-16.0) g/dL Hct 47.5 H (36.0-46.0) % MCV 89.1 (80.0-98.0) fL MCH 29.3 (27.0-32.0) pg MCHC 32.8 (31.0-37.0) g/dL RDW Std Deviation 44.3 (28.0-62.0) fl RDW Coeff of Shaq 14 (11.0-15.0) % Plt Count 285 (150-400) K/uL MPV 9.70 (7.40-12.00) fL Neut % (Auto) 57.9 (48.0-80.0) % Lymph % (Auto) 31.1 (16.0-40.0) % Frederick % (Auto) 10.8 (0.0-15.0) % Eos % (Auto) 0.1 (0.0-7.0) % Baso % (Auto) 0.1 (0.0-1.5) % Neut # (Auto) 4.8 (1.4-5.7) K/uL Lymph # (Auto) 2.6 H (0.6-2.4) K/uL Frederick # (Auto) 0.9 H (0.0-0.8) K/uL Eos # (Auto) 0.0 (0.0-0.7) K/uL Baso # (Auto) 0.0 (0.0-0.1) K/uL Nucleated RBC % 0.0 /100WBC Nucleated RBCs # 0 K/uL Sodium 137 (136-145) mmol/L Potassium 4.0 (3.5-5.1) mmol/L Chloride 100 (98-107) mmol/L Carbon Dioxide 26.4 (21.0-32.0) mmol/L BUN 13 (7.0-18.0) mg/dL Creatinine 0.8 (0.6-1.0) mg/dL Est Cr Clr Drug Dosing 75.44 mL/min Estimated GFR (MDRD) > 60.0 ml/min Glucose 134 H (74-106) mg/dL Calcium 9.1 (8.5-10.1) mg/dL Total Bilirubin 1.4 H (0.2-1.0) mg/dL AST 20 (15-37) IU/L ALT 30 (14-63) IU/L Alkaline Phosphatase 56 (46-116) U/L Total Protein 7.8 (6.4-8.2) g/dL Albumin 4.0 (3.4-5.0) g/dL Globulin 3.8 (2.6-4.0) g/dL Albumin/Globulin Ratio 1.1 (0.9-1.6) Lipase 52 L (73-393) U/L Meds: Medications Discontinued Medications Generic Name Dose Route Start Last Admin Trade Name Freq PRN Reason Stop Dose Admin Glycerin 1.5 gm 07/12/19 00:03 07/12/19 00:25 Sani-Supp Pediatric RECTAL 07/12/19 00:04 1.5 gm ONETIME ONE Administration Hydromorphone HCl 1 mg 07/12/19 00:26 07/12/19 00:44 Dilaudid IVPUSH 07/12/19 00:27 1 mg ONETIME ONE Administration Sodium Chloride 1,000 mls @ 999 mls/hr 07/11/19 22:52 07/11/19 22:50 Normal Saline IV 07/11/19 23:52 999 mls/hr STAT ONE Administration Piperacillin Sod/Tazobactam 50 mls @ 100 mls/hr 07/12/19 00:26 Sod 3.375 gm/ Sodium Chloride IV 07/12/19 00:55 ONETIME ONE Ketorolac Tromethamine 30 mg 07/11/19 23:28 07/11/19 23:31 Toradol IVPUSH 07/11/19 23:29 30 mg ONETIME ONE Administration Lorazepam 1 mg 07/11/19 23:03 07/11/19 23:10 Ativan IVPUSH 07/11/19 23:04 1 mg ONETIME ONE Administration Metoclopramide HCl 10 mg 07/11/19 22:52 07/11/19 23:10 Reglan IVPUSH 07/11/19 22:53 10 mg ONETIME ONE Administration Departure - Departure Time of Disposition: 01:24 Disposition: DC/Tfer to Acute Hospital 02 Condition: Poor Clinical Impression: Perforated sigmoid colon - Discharge Information Referrals: PCP,None [Primary Care Provider] - Forms: ED Department Discharge - My Orders Last 24 Hours: My Active Orders 07/11/19 22:52 UA RFX JEFFRY AND CULT IF INDIC [URIN] Stat 07/12/19 00:27 CULTURE BLOOD [BC] Stat CULTURE BLOOD [BC] Stat Blood Culture x2 Reflex Set [OM.PC] Stat 07/12/19 01:01 Consult to Physician [CONS] Stat 07/12/19 01:03 Notify Provider Consults [RC] ASDIRECTED - Assessment/Plan Last 24 Hours: My Active Orders 07/11/19 22:52 UA RFX JEFFRY AND CULT IF INDIC [URIN] Stat 07/12/19 00:27 CULTURE BLOOD [BC] Stat CULTURE BLOOD [BC] Stat Blood Culture x2 Reflex Set [OM.PC] Stat 07/12/19 01:01 Consult to Physician [CONS] Stat 07/12/19 01:03 Notify Provider Consults [RC] ASDIRECTED
[2019-07-11] MEDS ORDERED: LORazepam 2 MG/ML SDV IVPUSH ONE (23:03)
[2019-07-11 23:27] LABS: BLOOD UREA NITROGEN,BUN 13 mg/dL (7.0-18.0); CARBON DIOXIDE,CO2 26.4 mmol/L (21.0-32.0); CHLORIDE,CL 100 mmol/L (98-107); GLUCOSE RANDOM 134 mg/dL (74-106); LIPASE 52 U/L (73-393); SODIUM,NA 137 mmol/L (136-145)
[2019-07-11] MEDS ORDERED: Ketorolac 30 MG/ML SDV IVPUSH ONE (23:28)
[2019-07-12] MEDS ORDERED: Glycerin Pediatric 1.2 GM Supp RECTAL ONE (00:03)
--- NOTE | 2019-07-12 00:25 | CT ---
INDICATION: Abdominal pain TECHNIQUE: CT abdomen and pelvis without contrast. COMPARISON: None FINDINGS: Lower chest: Bilateral breast implants. Liver: Unremarkable. Spleen: Unremarkable. Pancreas: Unremarkable. Gallbladder and bile ducts: Unremarkable. Adrenal glands: Unremarkable. Kidneys: Unremarkable. No kidney or ureteral stones and no hydronephrosis. GI tract: Pneumoperitoneum. Small amount of intraperitoneal free fluid. Diffuse mesenteric fat stranding. Extensive air around the midportion of the sigmoid colon. There is a large fecal ball in this region. No diverticulitis. Vascular structures: [id number]-hnnebkde atherosclerotic disease. Lymph nodes: Unremarkable. Pelvic Organs: Unremarkable. Bones: Limbus vertebrae at L3. IMPRESSION: Perforation of the mid sigmoid colon with moderate amount of surrounding extra luminal air and small amount of pneumoperitoneum throughout the remainder of the abdomen. Large fecal ball in this region. It is difficult to determine if this is entirely intraluminal. Diffuse mesenteric fat stranding and small amount of free fluid, concerning for peritonitis. Findings discussed with Dr. Washington at 12:23 a.m. on July 12, 2019. Please note that all CT scans at this facility use dose modulation, iterative reconstruction, and/or weight-based dosing when appropriate to reduce radiation dose to as low as reasonably achievable. Dictated by Danelle Sethi MD @ Jul 12 2019 12:17AM Signed by Dr. Danelle Sethi @ Jul 12 2019 12:24AM
[2019-07-12] MEDS ORDERED: HYDROmorphone 1 MG/ML Syringe IVPUSH ONE (00:26)
[2019-07-12] MEDS ORDERED: Piperacillin/Tazobactam 3.375 GM in Sodium Chloride 0.9% 50 ML IV ONE (00:26)
[2019-07-12] MEDS ORDERED: Morphine 4 MG/ML Syringe IVPUSH ONE (01:37)
[2019-07-12] MEDS ORDERED: Sodium Chloride 0.9% 1,000 ML IV SCH (01:45)
--- NOTE | 2019-07-12 01:49 | PCM.SN ---
- Free Text/Narrative Note: consult note as dictated in chart; pt was accepted to [facility] because of her co morbidity; dict [id number]
--- NOTE | 2019-07-12 08:19 | CONS ---
DATE OF CONSULTATION: 07/11/2019 DATE OF : 1960 PRIMARY CARE PHYSICIAN: None PCP REFERRING PHYSICIAN: Reyes Washington MD CONCERNING QUESTION: Perforated viscus. HISTORY OF PRESENT ILLNESS: The patient is a 58-year-old lady, who has a long history of COPD and constipation. The patient remarked that she has been constipated for over a week, and then today, the patient tried to use a finger to dislodge the constipation, and then afterwards she developed severe abdominal pain, sought help in the emergency room. CAT scan shows free air, and Surgery was then consulted. The patient has severe COPD. Has been hospitalized in the hospital 2 times in the last 6 months and is taking nebulizers every day with Combivent, Pulmicort, and Ventolin and also taking prednisone 20 mg p.o. daily for her breathing treatment. PAST MEDICAL HISTORY: Significant for COPD. Denies diabetes, [place], and CVA. PAST SURGICAL HISTORY: The patient has 4 times and 1 time of exploratory laparotomy, and questionable bowel resection, per patient it was for bowel obstruction. ALLERGIES: Please refer to nursing for details. MEDICATIONS: Please refer to nursing for details. FAMILY HISTORY: Noncontributory. PHYSICAL EXAMINATION: GENERAL: A very pleasant lady, but in some distress and is able to still carry on a conversation with the doctor. VITAL SIGNS: Blood pressure is 120/80, respiratory rate is 18, and saturation on room air of 95%. HEENT: Normocephalic and atraumatic. Sclerae are anicteric. LUNGS: Clear to auscultation. HEART: Regular rate and rhythm. ABDOMEN: Soft with diffuse tenderness. No rebound tenderness. LABORATORY DATA: White count is 8,000. BUN is 12 and creatinine is 0.8. CAT scan reading, perforation of the sigmoid colon with moderate amount of surrounding extraluminal air. IMPRESSION: Perforated viscus and would probably benefit from surgical intervention. However, with the patient's severe comorbidity with hospitalization admission 2 times and on daily nebulizer with 4 medication, Pulmicort, Ventolin, Combivent, and with steroid 20 mg p.o. daily, the patient would benefit to be transferred to higher facility. Plan has been discussed with the ER physician, and the patient, and all agree and are on the same page. At the time of speaking, the patient is trying to arrange transportation. She has been accepted by outside facility. At the time of dictation, we are still arranging the transfer. TAMMY / CHANTE /[id number]
== END 2019-07-12 02:15 ==
LOC: MW.ED 22:50
DX: K63.1 Perforation of intestine (nontraumatic) (principal); J44.9 Chronic obstructive pulmonary disease, unspecified; Z79.51 Long term (current) use of inhaled steroids; Z79.899 Other long term (current) drug therapy
CPT/HCPCS: 36415; 74176; 80053; 81003; 83690; 85025; 87040; 96361; 96365; 96375; 99285; A9270; J1170; J1885; J2060; J2270; J2543; J2765; J7040; J7050

== ENCOUNTER 2019-08-04 10:08 | Inpatient (IN) | payer BC, MEDICARE ==
[2019-08-04] MEDS ORDERED: Albuterol/Ipratropium 3.0-0.5 MG/3 ML Neb Soln NEB ONE (10:19)
[2019-08-04] MEDS ORDERED: methylPREDNISolone Sodium Succinate 125 MG/2 ML SDV IVPUSH ONE (10:25)
--- NOTE | 2019-08-04 10:28 | EDM.PDOC ---
ED HPI GENERAL MEDICAL PROBLEM - General Chief Complaint: Respiratory Problem Stated Complaint: TROUBLE BREATHING Time Seen by Provider: 08/04/19 10:18 Source of Information: Reports: Patient History Limitations: Reports: No Limitations - History of Present Illness INITIAL COMMENTS - FREE TEXT/NARRATIVE: HISTORY AND PHYSICAL: History of present illness: Patient is a 58-year-old female who presents to the ED today with concern of fever and feeling short of breath since last night. Patient states she has COPD. Patient states in June she had a perforation of her colon and was transferred to [place]. Patient states she had her first surgery on July 12 and was on Lovenox throughout her stay in the hospital. Patient states about a little over a week ago she had to have another surgery because she had a hematoma under her incision site patient states she's had baseline abdominal pain since the first surgery on July 12 which is unchanged since the surgery date. Patient states she is not on home oxygen at home and uses nebulizers and inhalers for COPD. Patient states she did take Tylenol about an hour before coming to the ED per her temperature at home was around 101.6 which she checked with an oral thermometer. Patient denies any other symptoms or concerns. Patient denies chest pain, cough. Denies headache, neck stiff ness, change in vision, syncope, or near syncope. Denies nausea, vomiting, diarrhea, constipation, or dysuria. Has not noted any blood in urine or stool. Patient has been eating and drinking appropriately. Review of systems: As per history of present illness and below otherwise all systems reviewed and negative. Past medical history: As per history of present illness and as reviewed below otherwise noncontributory. Surgical history: As per history of present illness and as reviewed below otherwise noncontributory. Social history: See social history for further information Family history: As per history of present illness and as reviewed below otherwise noncontributory. Physical exam: General: Patient is alert, oriented, and in no acute distress. Patient laying comfortably on exam table. HEENT: Atraumatic, normocephalic, pupils equal and reactive bilaterally, negative for conjunctival pallor or scleral icterus, mucous membranes moist, TMs normal bilaterally, throat clear, neck supple, nontender, trachea midline. No drooling or trismus noted. No meningeal signs. No hot potato voice noted. Lungs: Diminished but clear to auscultation, breath sounds equal bilaterally, chest nontender. Heart: S1S2, regular rate and rhythm without overt murmur Abdomen: Soft, nondistended. Colostomy in place. Scarring consistent with recent surgical history. No erythema or drainage from incision sites. Negative for masses or hepatosplenomegaly. Negative for costovertebral tenderness. Pelvis: Stable nontender. Genitourinary: Deferred. Rectal: Deferred. Skin: Intact, warm, dry. No lesions or rashes noted. Extremities: Atraumatic, negative for cords or calf pain. Neurovascular unremarkable. Neuro: Awake, alert, oriented. Cranial nerves II through XII unremarkable. Cerebellum unremarkable. Motor and sensory unremarkable throughout. Exam nonfocal. Notes: Dr. Antunez verbally involved in patient care. 88% O2 on RA upon arrival. 2L NC placed with 98% O2 Dr. Maldonado consulted on patient and discussed thoroughly patients case and requests starting zosyn and admit to medicine with surgical consult. Dr. Faulkner consulted on patient and will admit to inpatient. Voices understanding and is agreeable to plan of care. Denies any further questions or concerns at this time. Diagnostics: Influenza, EKG, CBC, CMP, UA, chest x-ray, troponin, PT/INR, lactate, blood cultures 2 Therapeutics: DuoNeb, Solu-Medrol, saline, Zosyn, Morphine Impression: Dyspnea Fever Persistent post-op abdominal pain Plan: 1. Admit to inpatient to Dr. Faulkner Definitive disposition and diagnosis as appropriate pending reevaluation and review of above. Abdomen Pain Score (Numeric/FACES): 4 - Related Data Allergies Allergy/AdvReac Type Severity Reaction Status Date / Time No Known Allergies Allergy Verified 08/04/19 10:10 Home Meds: Home Meds ALPRAZolam [Xanax] 0 mg PO ASDIRECTED PRN 05/29/18 [History] Albuterol/Ipratropium [Combivent Respimat] 1 puff IH QID PRN 05/29/18 [History] Ipratropium/Albuterol Sulfate [Iprat-Albut 0.5-3(2.5) MG/3 ML] 3 ml NEB Q6HRRT PRN 05/29/18 [History] Budesonide [Pulmicort] 0 mg INH DAILY 11/04/18 [History] Fluticasone Propionate [Flonase] 1 - 2 puff NS DAILY 11/04/18 [History] busPIRone [Buspar] 0 mg PO BID 11/04/18 [History] predniSONE [Prednisone] 20 mg PO ASDIRECTED 07/11/19 [History] Past Medical History HEENT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: None Cardiovascular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: Heart Murmur, Other (See Below) 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 Respiratory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: COPD, Other (See Below) Other Respiratory History: emphsyema Gastrointestinal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: Bowel Obstruction Genitourinary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: None [employer]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/[employer]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: Musculoskeletal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: Arthritis Neurological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: None Psychiatric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: Anxiety Endocrine/Metabolic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: None Hematologic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: None Immunologic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: None Oncologic (Cancer)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: None Dermatologic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: None - Infectious Disease History Infectious Disease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: Chicken Pox, Measles, Mumps - Past Surgical History Head Surgeries/Procedures: Reports: None HEENT Surgical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: Tonsillectomy Cardiovascular Surgical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: Cardiac Ablation Respiratory Surgical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: None GI Surgical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: Appendectomy, Colonoscopy, Colostomy, Other (See Below) Female Surgical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: Section, Tubal Ligation Endocrine Surgical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: None Neurological Surgical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: None Musculoskeletal Surgical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: None Oncologic Surgical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: None Dermatological Surgical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: None Social & Family History - Family History Family Medical History: Noncontributory - Tobacco Use Smoking Status *Q: Never Smoker Second Hand Smoke Exposure: No - Caffeine Use Caffeine Use: Reports: Coffee Other Caffeine Use: 3cups/day - Recreational Drug Use Recreational Drug Use: No ED ROS GENERAL - Review of Systems Review Of Systems: Comprehensive ROS is negative, except as noted in HPI. ED EXAM, GENERAL - Physical Exam Exam: See Below (See dictation) Course - Vital Signs Last Recorded V/S: Last Vital Signs Temp 97.4 F 08/04/19 10:10 Pulse 104 H 08/04/19 13:36 Resp 18 08/04/19 13:36 BP 144/74 H 08/04/19 13:36 Pulse Ox 94 L 08/04/19 13:36 - Orders/Labs/Meds Orders: Active Orders 24 hr Category Date Time Status Admission Status [Patient Status] [ADT] Stat ADT 08/04/19 13:55 Ordered EKG Documentation Completion [RC] STAT Care 08/04/19 10:19 Active RT Aerosol Therapy [RC] ASDIRECTED Care 08/04/19 10:19 Active CULTURE BLOOD [BC] Stat Lab 08/04/19 10:20 Received CULTURE BLOOD [BC] Stat Lab 08/04/19 10:51 Received Piperacillin/Tazobactam [Piperacil-Tazobact] 3.375 gm Med 08/04/19 13:40 Active Sodium Chloride 0.9% [Normal Saline] 50 ml IV ONETIME Blood Culture x2 Reflex Set [OM.PC] Stat Oth 08/04/19 10:26 Ordered Medication Orders Piperacillin Sod/Tazobactam (Sod 3.375 gm/ Sodium Chloride) 50 mls @ 100 mls/ hr IV ONETIME ONE Stop: 08/04/19 14:09 Labs: Laboratory Tests 08/04/19 08/04/19 08/04/19 Range/Units 10:20 10:20 10:20 WBC 8.52 (4.0-11.0) K/uL RBC 3.34 L (4.30-5.90) M/uL Hgb 9.5 L (12.0-16.0) g/dL Hct 29.6 L (36.0-46.0) % MCV 88.6 (80.0-98.0) fL MCH 28.4 (27.0-32.0) pg MCHC 32.1 (31.0-37.0) g/dL RDW Std Deviation 49.8 (28.0-62.0) fl RDW Coeff of Shaq 16 H (11.0-15.0) % Plt Count 367 (150-400) K/uL MPV 9.80 (7.40-12.00) fL Neut % (Auto) 72.6 (48.0-80.0) % Lymph % (Auto) 12.9 L (16.0-40.0) % [place] % (Auto) 11.4 (0.0-15.0) % Eos % (Auto) 2.7 (0.0-7.0) % Baso % (Auto) 0.4 (0.0-1.5) % Neut # (Auto) 6.2 H (1.4-5.7) K/uL Lymph # (Auto) 1.1 (0.6-2.4) K/uL [place] # (Auto) 1.0 H (0.0-0.8) K/uL Eos # (Auto) 0.2 (0.0-0.7) K/uL Baso # (Auto) 0.0 (0.0-0.1) K/uL Nucleated RBC % 0.0 /100WBC Nucleated RBCs # 0 K/uL INR 1.04 Lactate (0.20-2.00) mmol/L Sodium 138 (136-145) mmol/L Potassium 3.2 L (3.5-5.1) mmol/L Chloride 100 (98-107) mmol/L Carbon Dioxide 26.0 (21.0-32.0) mmol/L BUN 9 (7.0-18.0) mg/dL Creatinine 0.6 (0.6-1.0) mg/dL Est Cr Clr Drug Dosing TNP Estimated GFR (MDRD) > 60.0 ml/min Glucose 94 (74-106) mg/dL Calcium 8.1 L (8.5-10.1) mg/dL Total Bilirubin 0.3 (0.2-1.0) mg/dL AST 19 (15-37) IU/L ALT 15 (14-63) IU/L Alkaline Phosphatase 92 (46-116) U/L Troponin I < 0.050 (0.000-0.056) ng/mL Total Protein 6.7 (6.4-8.2) g/dL Albumin 2.2 L (3.4-5.0) g/dL Globulin 4.5 H (2.6-4.0) g/dL Albumin/Globulin Ratio 0.5 L (0.9-1.6) Urine Color Urine Appearance Urine pH (5.0-8.0) Ur Specific [place] (1.001-1.035) Urine Protein (NEGATIVE) mg/dL Urine Glucose (UA) (NEGATIVE) mg/dL Urine Ketones (NEGATIVE) mg/dL Urine Occult Blood (NEGATIVE) Urine Nitrite (NEGATIVE) Urine Bilirubin (NEGATIVE) Urine Urobilinogen (<2.0) EU/dL Ur Leukocyte Esterase (NEGATIVE) Urine RBC (0-2/HPF) Urine WBC (0-5/HPF) Ur Epithelial Cells (NONE-FEW) Urine Bacteria (NEGATIVE) Urine Mucus (NONE-MOD) 08/04/19 08/04/19 Range/Units 10:20 10:57 WBC (4.0-11.0) K/uL RBC (4.30-5.90) M/uL Hgb (12.0-16.0) g/dL Hct (36.0-46.0) % MCV (80.0-98.0) fL MCH (27.0-32.0) pg MCHC (31.0-37.0) g/dL RDW Std Deviation (28.0-62.0) fl RDW Coeff of Shaq (11.0-15.0) % Plt Count (150-400) K/uL MPV (7.40-12.00) fL Neut % (Auto) (48.0-80.0) % Lymph % (Auto) (16.0-40.0) % [place] % (Auto) (0.0-15.0) % Eos % (Auto) (0.0-7.0) % Baso % (Auto) (0.0-1.5) % Neut # (Auto) (1.4-5.7) K/uL Lymph # (Auto) (0.6-2.4) K/uL [place] # (Auto) (0.0-0.8) K/uL Eos # (Auto) (0.0-0.7) K/uL Baso # (Auto) (0.0-0.1) K/uL Nucleated RBC % /100WBC Nucleated RBCs # K/uL INR Lactate 0.6 (0.20-2.00) mmol/L Sodium (136-145) mmol/L Potassium (3.5-5.1) mmol/L Chloride (98-107) mmol/L Carbon Dioxide (21.0-32.0) mmol/L BUN (7.0-18.0) mg/dL Creatinine (0.6-1.0) mg/dL Est Cr Clr Drug Dosing Estimated GFR (MDRD) ml/min Glucose (74-106) mg/dL Calcium (8.5-10.1) mg/dL Total Bilirubin (0.2-1.0) mg/dL AST (15-37) IU/L ALT (14-63) IU/L Alkaline Phosphatase (46-116) U/L Troponin I (0.000-0.056) ng/mL Total Protein (6.4-8.2) g/dL Albumin (3.4-5.0) g/dL Globulin (2.6-4.0) g/dL Albumin/Globulin Ratio (0.9-1.6) Urine Color YELLOW Urine Appearance CLEAR Urine pH 7.0 (5.0-8.0) Ur Specific [place] 1.015 (1.001-1.035) Urine Protein TRACE H (NEGATIVE) mg/dL Urine Glucose (UA) NEGATIVE (NEGATIVE) mg/dL Urine Ketones 15 H (NEGATIVE) mg/dL Urine Occult Blood NEGATIVE (NEGATIVE) Urine Nitrite NEGATIVE (NEGATIVE) Urine Bilirubin NEGATIVE (NEGATIVE) Urine Urobilinogen 0.2 (<2.0) EU/dL Ur Leukocyte Esterase NEGATIVE (NEGATIVE) Urine RBC 0-1 (0-2/HPF) Urine WBC 0-2 (0-5/HPF) Ur Epithelial Cells FEW (NONE-FEW) Urine Bacteria RARE (NEGATIVE) Urine Mucus LIGHT (NONE-MOD) Meds: Medications Generic Name Dose Route Start Last Admin Trade Name Freq PRN Reason Stop Dose Admin Piperacillin Sod/Tazobactam 50 mls @ 100 mls/hr 08/04/19 13:40 Sod 3.375 gm/ Sodium Chloride IV 08/04/19 14:09 ONETIME ONE Discontinued Medications Generic Name Dose Route Start Last Admin Trade Name Freq PRN Reason Stop Dose Admin Albuterol/Ipratropium 3 ml 08/04/19 10:19 08/04/19 10:25 Duoneb 3.0-0.5 Mg/3 Ml NEB 08/04/19 10:20 3 ml ONETIME ONE Administration Sodium Chloride 1,000 mls @ 500 mls/hr 08/04/19 10:29 08/04/19 10:37 Normal Saline IV 08/04/19 12:28 500 mls/hr STAT ONE Administration Iopamidol 80 ml 08/04/19 13:00 08/04/19 13:01 Isovue Multipack-370 (76%) IVPUSH 08/04/19 13:01 80 ml ONETIME STA Administration Methylprednisolone Sodium Succinate 125 mg 08/04/19 10:25 08/04/19 10:42 Solu-Medrol IVPUSH 08/04/19 10:26 125 mg ONETIME ONE Administration Morphine Sulfate 2 mg 08/04/19 13:50 08/04/19 13:55 Morphine IVPUSH 08/04/19 13:51 2 mg ONETIME ONE Administration Departure - Departure Time of Disposition: 13:57 Disposition: Admitted As Inpatient 64 Clinical Impression: Post-op pain Dyspnea Qualifiers: Dyspnea type: unspecified Qualified Code(s): R06.00 - Dyspnea, unspecified Fever Qualifiers: Fever type: unspecified Qualified Code(s): R50.9 - Fever, unspecified - Discharge Information Referrals: Yaw Loza MD [Primary Care Provider] - Forms: ED Department Discharge - My Orders Last 24 Hours: My Active Orders 08/04/19 10:19 EKG Documentation Completion [RC] STAT RT Aerosol Therapy [RC] ASDIRECTED 08/04/19 10:20 CULTURE BLOOD [BC] Stat 08/04/19 10:26 Blood Culture x2 Reflex Set [OM.PC] Stat 08/04/19 10:51 CULTURE BLOOD [BC] Stat 08/04/19 13:40 Piperacillin/Tazobactam [Piperacil-Tazobact] 3.375 gm Sodium Chloride 0.9% [ Normal Saline] 50 ml IV ONETIME 08/04/19 13:55 Admission Status [Patient Status] [ADT] Stat - Assessment/Plan Last 24 Hours: My Active Orders 08/04/19 10:19 EKG Documentation Completion [RC] STAT RT Aerosol Therapy [RC] ASDIRECTED 08/04/19 10:20 CULTURE BLOOD [BC] Stat 08/04/19 10:26 Blood Culture x2 Reflex Set [OM.PC] Stat 08/04/19 10:51 CULTURE BLOOD [BC] Stat 08/04/19 13:40 Piperacillin/Tazobactam [Piperacil-Tazobact] 3.375 gm Sodium Chloride 0.9% [ Normal Saline] 50 ml IV ONETIME 08/04/19 13:55 Admission Status [Patient Status] [ADT] Stat
[2019-08-04] MEDS ORDERED: Sodium Chloride 0.9% 1,000 ML IV ONE (10:29)
[2019-08-04 11:14] LABS: BLOOD UREA NITROGEN,BUN 9 mg/dL (7.0-18.0); CHLORIDE,CL 100 mmol/L (98-107); GLUCOSE RANDOM 94 mg/dL (74-106); POTASSIUM,K 3.2 mmol/L (3.5-5.1); SODIUM,NA 138 mmol/L (136-145)
--- NOTE | 2019-08-04 12:01 | CR ---
EXAM DATE: 08/04/19 PATIENT'S AGE: 58 Chest: Two views of the chest were obtained. Comparison: Prior chest x-ray of 11/04/18. Heart size and mediastinum are normal. Lungs are clear. Bony structures appear within normal limits for the patient's age. Impression: 1. Nothing acute is appreciated on two view chest x-ray. Diagnostic code #1 Report Signed by Proxy. ROZINA
[2019-08-04] MEDS ORDERED: Iopamidol 755 MG/ML 500 ML Multipack Bottle IVPUSH STA (13:00)
--- NOTE | 2019-08-04 13:09 | CT ---
EXAM DATE: 08/04/19 PATIENT'S AGE: 58 CT chest Technique: Multiple axial sections through the chest are obtained. Intravenous contrast was utilized study performed as a pulmonary angiogram protocol. Comparison: Prior chest x-ray of 08/04/19. Findings: Pulmonary arteries are well opacified. No filling defects are seen to indicate pulmonary embolism. No pericardial thickening is seen. Mild coronary artery calcification is seen. Bilateral breast prosthesis are noted showing some capsular calcification. Mediastinum shows no adenopathy. Aorta shows no aneurysm. No axillary adenopathy is seen. Emphysematous changes are noted throughout both lungs. Pleural thickening and mild right basilar atelectasis is noted. No acute parenchymal change is appreciated. No acute osseous abnormality is appreciated. Impression: 1. No findings of pulmonary embolism. 2. Emphysematous changes are present. 3. Other findings as noted above believed to be nonacute and incidental. Diagnostic code #3 Report Signed by Proxy. [facility]
--- NOTE | 2019-08-04 13:27 | CT ---
EXAM DATE: 08/04/19 PATIENT'S AGE: 58 CT abdomen and pelvis Technique: Multiple axial sections were obtained from above the dome of the diaphragm inferiorly through the pubic symphysis. Intravenous contrast was utilized. No oral contrast has been given. Comparison: Previous CT abdomen and pelvis study of 07/11/19. Findings: Bilateral breast prosthesis are partially seen. Minimal right basilar pleural effusion with atelectasis is seen. Three small subcapsular abnormalities are seen within the posterior right lobe of the liver. Interesting to note that these are not seen on previous CT exam and uncertain if these are due to small subcapsular abscesses or other fluid abnormality. No additional liver abnormality is seen. Spleen is normal. Adrenal glands show no nodule. Kidneys show symmetric contrast enhancement without hydronephrosis or mass. Gallbladder contains no calcified gallstones. Pancreas shows no discrete findings. Ostomy is noted within the left lower abdomen. Slightly dilated fluid-filled bowel is seen. Findings are presumably due to ileus. Hazy mesenteric densities are seen presumably postsurgical and due to mesenteric congestion. There appears to be a peristomal hernia containing a loop of bowel. Small amount of free fluid is seen within the pelvis. Bone window settings shows mild degenerative change within the spine. Incidental limbus vertebra noted within the anterior and superior L3 vertebral body. Impression: 1. Three small subcapsular abnormalities of the posterior right lobe of the liver. These are an interval change from prior CT exam and difficult to exclude small subcapsular abscesses or other fluid collections. Largest finding measures about 1.1 cm. 2. Mildly dilated fluid-filled bowel presumably due to ileus. 3. Left-sided colostomy. Peristomal hernia is noted which contains a loop of bowel. 4. Hazy mesentery change most likely postsurgical and due to mesenteric congestion. 5. Small amount of free fluid within the cul-de-sac most likely reactive from previous surgery. Diagnostic code #[address] [facility]
[2019-08-04] MEDS ORDERED: Piperacillin/Tazobactam 3.375 GM in Sodium Chloride 0.9% 50 ML IV ONE (13:40)
[2019-08-04] MEDS ORDERED: Morphine 2 MG/ML Syringe IVPUSH ONE (13:50)
[2019-08-04] MEDS ORDERED: Bisacodyl 5 MG Tab PO PRN (14:19)
[2019-08-04] MEDS ORDERED: Ondansetron 4 MG Tab.DIS PO PRN (14:19)
[2019-08-04] MEDS ORDERED: Polyethylene Glycol 3350 Powder 17 GM Packet PO PRN (14:19)
[2019-08-04] MEDS ORDERED: Ondansetron 4 MG/2 ML SDV IVPUSH PRN (14:19)
[2019-08-04] MEDS ORDERED: Acetaminophen 325 MG Tab PO PRN (14:19)
--- NOTE | 2019-08-04 15:01 | PCM.HP.2 ---
<Tree Trevino - Last Filed: 08/04/19 17:13> H&P History of Present Illness - General Date of Service: 08/04/19 Admit Problem/Dx: Admission Diagnosis/Problem Admission Diagnosis/Problem COPD, Moderate chronic obstructive pulmonary disease - History of Present Illness Initial Comments - Free Text/Narative: 58 y/o female with history of COPD and complex surgical history which includes colostomy s/p bowel perforation in June and recent revision of her abdominal incision due to dehiscence and subcutaneous hematoma at the incision site. Patient presents today complaining of diffuse abdominal pain and fever. Patient states she noticed a fever 101 F. She took tylenol which she states has been keeping the fever down. In addition, states that yesterday she had first bowel movement in her ostomy bag since the past 4-5 days. Now, it's green and liquid. Denies any nausea, vomiting. Has been eating and keeping food and fluids down. Denies any chest pain. Does endorse some shortness of breath. Does not use supplemental oxygen at home. Has been using her inhaler at home. Denies any cough, however, she does endorse some myalgias. In the ER, she was found to be hypoxic at 88 and needing 1-2 L O2 to keep O2 sat >90%. CT chest was negative for PE. CT abdomen/pelvis showed some tiny subcapsular fluid collections on right lobe of the liver concerning for possible abscess. In addition, found an ileus and herniated bowel into stoma without obstruction. She was started on Zosyn and given 1 dose of methylprednisolone. Abdomen Pain Score (Numeric/FACES): 4 - Related Data Allergies/Adverse Reactions: Allergies Allergy/AdvReac Type Severity Reaction Status Date / Time No Known Allergies Allergy Verified 08/04/19 15:19 Home Medications: Home Meds ALPRAZolam [Xanax] 2 mg PO TID PRN 05/29/18 [History] Albuterol/Ipratropium [Combivent Respimat] 1 puff IH QID PRN 05/29/18 [History] Budesonide [Pulmicort] 1 dose INH BEDTIME 11/04/18 [History] Fluticasone Propionate [Flonase] 0 puff NASBOTH DAILY 11/04/18 [History] busPIRone [Buspar] 15 mg PO BID 11/04/18 [History] predniSONE [Prednisone] 20 mg PO DAILY PRN 07/11/19 [History] Acetaminophen with Codeine [Tylenol with Codeine #3 Tablet] 1 each PO Q6H PRN [History] Ondansetron [Zofran ODT] 4 mg PO Q6H PRN 08/04/19 [History] Rosuvastatin [Crestor] 5 mg PO BEDTIME 08/04/19 [History] Past Medical History HEENT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: None Cardiovascular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: Heart Murmur, Other (See Below) 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 Respiratory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: COPD, Other (See Below) Other Respiratory History: emphsyema Gastrointestinal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: Bowel Obstruction Genitourinary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: None 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: Musculoskeletal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: Arthritis Neurological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: None Psychiatric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: Anxiety Endocrine/Metabolic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: None Hematologic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: None Immunologic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: None Oncologic (Cancer)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: None Dermatologic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: None - Infectious Disease History Infectious Disease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: Chicken Pox, Measles, Mumps - Past Surgical History Head Surgeries/Procedures: Reports: None HEENT Surgical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: Tonsillectomy Cardiovascular Surgical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: Cardiac Ablation Respiratory Surgical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: None GI Surgical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: Appendectomy, Colonoscopy, Colostomy, Other (See Below) Female Surgical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: Section, Tubal Ligation Endocrine Surgical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: None Neurological Surgical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: None Musculoskeletal Surgical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: None Oncologic Surgical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: None Dermatological Surgical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: None Social & Family History - Family History Family Medical History: Noncontributory - Tobacco Use Smoking Status *Q: Never Smoker Second Hand Smoke Exposure: No - Caffeine Use Caffeine Use: Reports: Coffee Other Caffeine Use: 3cups/day - Recreational Drug Use Recreational Drug Use: No H&P Review of Systems - Review of Systems: Review Of Systems: Comprehensive ROS is negative, except as noted in HPI. Exam - Exam Exam: See Below - Vital Signs Vital Signs: Last Vital Signs Temp 36.7 C 08/04/19 14:59 Pulse 106 H 08/04/19 14:59 Resp 16 08/04/19 14:59 BP 139/75 08/04/19 14:59 Pulse Ox 91 L 08/04/19 14:59 Weight: 63.503 kg - Exam Quality Assessment: Supplemental Oxygen General: Alert, Oriented, Cooperative HEENT: Other (dry oral mucosa) Lungs: Other (decreased breath sounds bilaterally with some inspiratory wheezing. No crackles. Prolonged inspiratory, expiratory phases.) Cardiovascular: Regular Rate, Regular Rhythm GI/Abdominal Exam: Other (Incision wound look clean and dry. No swelling, erythema or discharge. abdomen is distended. Ostomy bag has green fluid.) Extremities: Normal Inspection, No Pedal Edema Skin: Warm, Dry Neuro Extensive - Mental Status: Alert, Oriented x3 - Patient Data Lab Results Last 24 hrs: Laboratory Results - last 24 hr 08/04/19 08/04/19 08/04/19 Range/Units 10:20 10:20 10:20 WBC 8.52 (4.0-11.0) K/uL RBC 3.34 L (4.30-5.90) M/uL Hgb 9.5 L (12.0-16.0) g/dL Hct 29.6 L (36.0-46.0) % MCV 88.6 (80.0-98.0) fL MCH 28.4 (27.0-32.0) pg MCHC 32.1 (31.0-37.0) g/dL RDW Std Deviation 49.8 (28.0-62.0) fl RDW Coeff of Shaq 16 H (11.0-15.0) % Plt Count 367 (150-400) K/uL MPV 9.80 (7.40-12.00) fL Neut % (Auto) 72.6 (48.0-80.0) % Lymph % (Auto) 12.9 L (16.0-40.0) % [place] % (Auto) 11.4 (0.0-15.0) % Eos % (Auto) 2.7 (0.0-7.0) % Baso % (Auto) 0.4 (0.0-1.5) % Neut # (Auto) 6.2 H (1.4-5.7) K/uL Lymph # (Auto) 1.1 (0.6-2.4) K/uL [place] # (Auto) 1.0 H (0.0-0.8) K/uL Eos # (Auto) 0.2 (0.0-0.7) K/uL Baso # (Auto) 0.0 (0.0-0.1) K/uL Nucleated RBC % 0.0 /100WBC Nucleated RBCs # 0 K/uL INR 1.04 Lactate (0.20-2.00) mmol/L Sodium 138 (136-145) mmol/L Potassium 3.2 L (3.5-5.1) mmol/L Chloride 100 (98-107) mmol/L Carbon Dioxide 26.0 (21.0-32.0) mmol/L BUN 9 (7.0-18.0) mg/dL Creatinine 0.6 (0.6-1.0) mg/dL Est Cr Clr Drug Dosing TNP Estimated GFR (MDRD) > 60.0 ml/min Glucose 94 (74-106) mg/dL Calcium 8.1 L (8.5-10.1) mg/dL Total Bilirubin 0.3 (0.2-1.0) mg/dL AST 19 (15-37) IU/L ALT 15 (14-63) IU/L Alkaline Phosphatase 92 (46-116) U/L Troponin I < 0.050 (0.000-0.056) ng/mL Total Protein 6.7 (6.4-8.2) g/dL Albumin 2.2 L (3.4-5.0) g/dL Globulin 4.5 H (2.6-4.0) g/dL Albumin/Globulin Ratio 0.5 L (0.9-1.6) Urine Color Urine Appearance Urine pH (5.0-8.0) Ur Specific [place] (1.001-1.035) Urine Protein (NEGATIVE) mg/dL Urine Glucose (UA) (NEGATIVE) mg/dL Urine Ketones (NEGATIVE) mg/dL Urine Occult Blood (NEGATIVE) Urine Nitrite (NEGATIVE) Urine Bilirubin (NEGATIVE) Urine Urobilinogen (<2.0) EU/dL Ur Leukocyte Esterase (NEGATIVE) Urine RBC (0-2/HPF) Urine WBC (0-5/HPF) Ur Epithelial Cells (NONE-FEW) Urine Bacteria (NEGATIVE) Urine Mucus (NONE-MOD) 08/04/19 08/04/19 Range/Units 10:20 10:57 WBC (4.0-11.0) K/uL RBC (4.30-5.90) M/uL Hgb (12.0-16.0) g/dL Hct (36.0-46.0) % MCV (80.0-98.0) fL MCH (27.0-32.0) pg MCHC (31.0-37.0) g/dL RDW Std Deviation (28.0-62.0) fl RDW Coeff of Shaq (11.0-15.0) % Plt Count (150-400) K/uL MPV (7.40-12.00) fL Neut % (Auto) (48.0-80.0) % Lymph % (Auto) (16.0-40.0) % [place] % (Auto) (0.0-15.0) % Eos % (Auto) (0.0-7.0) % Baso % (Auto) (0.0-1.5) % Neut # (Auto) (1.4-5.7) K/uL Lymph # (Auto) (0.6-2.4) K/uL [place] # (Auto) (0.0-0.8) K/uL Eos # (Auto) (0.0-0.7) K/uL Baso # (Auto) (0.0-0.1) K/uL Nucleated RBC % /100WBC Nucleated RBCs # K/uL INR Lactate 0.6 (0.20-2.00) mmol/L Sodium (136-145) mmol/L Potassium (3.5-5.1) mmol/L Chloride (98-107) mmol/L Carbon Dioxide (21.0-32.0) mmol/L BUN (7.0-18.0) mg/dL Creatinine (0.6-1.0) mg/dL Est Cr Clr Drug Dosing Estimated GFR (MDRD) ml/min Glucose (74-106) mg/dL Calcium (8.5-10.1) mg/dL Total Bilirubin (0.2-1.0) mg/dL AST (15-37) IU/L ALT (14-63) IU/L Alkaline Phosphatase (46-116) U/L Troponin I (0.000-0.056) ng/mL Total Protein (6.4-8.2) g/dL Albumin (3.4-5.0) g/dL Globulin (2.6-4.0) g/dL Albumin/Globulin Ratio (0.9-1.6) Urine Color YELLOW Urine Appearance CLEAR Urine pH 7.0 (5.0-8.0) Ur Specific [place] 1.015 (1.001-1.035) Urine Protein TRACE H (NEGATIVE) mg/dL Urine Glucose (UA) NEGATIVE (NEGATIVE) mg/dL Urine Ketones 15 H (NEGATIVE) mg/dL Urine Occult Blood NEGATIVE (NEGATIVE) Urine Nitrite NEGATIVE (NEGATIVE) Urine Bilirubin NEGATIVE (NEGATIVE) Urine Urobilinogen 0.2 (<2.0) EU/dL Ur Leukocyte Esterase NEGATIVE (NEGATIVE) Urine RBC 0-1 (0-2/HPF) Urine WBC 0-2 (0-5/HPF) Ur Epithelial Cells FEW (NONE-FEW) Urine Bacteria RARE (NEGATIVE) Urine Mucus LIGHT (NONE-MOD) Result Diagrams: 08/04/19 10:20 08/04/19 10:20 Yair Results Last 24 hrs: Microbiology 08/04/19 10:50 Influenza Type A Antigen Screen - Final Nasopharyngeal Swab NEGATIVE INFLUENZA A VIRUS AG REFERENCE RANGE: NEGATIVE Influenza Type B Antigen Screen - Final NEGATIVE INFLUENZA B VIRUS AG REFERENCE RANGE: NEGATIVE Problem List Initiated/Reviewed/Updated: Yes Orders Last 24hrs: Active Orders 24 hr Category Date Time Status Admission Status [Patient Status] [ADT] Stat ADT 08/04/19 13:55 Active Patient Status [ADT] Routine ADT 08/04/19 14:19 Active Blood Glucose Check, Bedside [RC] WITHMEALSANDBED Care 08/04/19 14:19 Active Cardiac Monitoring [RC] CONTINUOUS Care 08/04/19 14:23 Active Intake and Output [RC] Q12H Care 08/04/19 14:23 Active Notify Provider Consults [RC] ASDIRECTED Care 08/04/19 14:03 Active Oxygen Therapy [RC] PRN Care 08/04/19 14:19 Active RT Aerosol Therapy [RC] ASDIRECTED Care 08/04/19 10:19 Active Up With Assistance [RC] ASDIRECTED Care 08/04/19 14:19 Active VTE/DVT Education [RC] PER UNIT ROUTINE Care 08/04/19 14:19 Active Vital Signs [RC] Q4H Care 08/04/19 14:19 Active Consult to Physician [CONS] Stat Cons 08/04/19 14:03 Active Clear Liquid Diet [DIET] Diet 08/04/19 Dinner Active C DIFFICILE AG/TOXIN W/REFLEX [RM] Routine Lab 08/04/19 14:58 Ordered CBC WITH AUTO DIFF [HEME] AM Lab 08/05/19 05:11 Ordered CBC WITH AUTO DIFF [HEME] AM Lab 08/06/19 05:11 Ordered CBC WITH AUTO DIFF [HEME] AM Lab 08/07/19 05:11 Ordered COMPREHENSIVE METABOLIC PN,CMP [CHEM] AM Lab 08/05/19 05:11 Ordered COMPREHENSIVE METABOLIC PN,CMP [CHEM] AM Lab 08/06/19 05:11 Ordered COMPREHENSIVE METABOLIC PN,CMP [CHEM] AM Lab 08/07/19 05:11 Ordered CULTURE BLOOD [BC] Stat Lab 08/04/19 10:20 Received CULTURE BLOOD [BC] Stat Lab 08/04/19 10:51 Received CULTURE STOOL + CAMPY+SHIGATOX [RM] Routine Lab 08/04/19 14:58 Ordered Acetaminophen [Tylenol] Med 08/04/19 14:19 Active 650 mg PO Q4H PRN Bisacodyl [Dulcolax] Med 08/04/19 14:19 Active 5 mg PO DAILY PRN Enoxaparin [Lovenox] Med 08/04/19 14:30 Active 40 mg SUBCUT Q24H Lactated Ringers [Ringers, Lactated] 1,000 ml Med 08/04/19 15:00 Active IV ASDIRECTED Morphine Med 08/04/19 14:19 Active 2 mg IVPUSH Q2H PRN Ondansetron [Zofran ODT] Med 08/04/19 14:19 Active 4 mg PO Q4H PRN Ondansetron [Zofran] Med 08/04/19 14:19 Active 4 mg IVPUSH Q4H PRN Piperacillin/Tazobactam [Piperacil-Tazobact] 3.375 gm Med 08/04/19 20:00 Ordered Sodium Chloride 0.9% [Normal Saline] 50 ml IV Q8H Polyethylene Glycol 3350 [MiraLAX] Med 08/04/19 14:19 Active 17 gm PO DAILY PRN oxyCODONE Med 08/04/19 14:19 Active 5 mg PO Q4H PRN Blood Culture x2 Reflex Set [OM.PC] Stat Oth 08/04/19 10:26 Ordered Resuscitation Status Routine Resus Stat 08/04/19 14:19 Ordered Medication Orders Acetaminophen (Tylenol) 650 mg PO Q4H PRN PRN Reason: Pain (Mild 1-3)/fever Bisacodyl (Dulcolax) 5 mg PO DAILY PRN PRN Reason: Constipation Enoxaparin Sodium (Lovenox) 40 mg SUBCUT Q24H CLARA Piperacillin Sod/Tazobactam (Sod 3.375 gm/ Sodium Chloride) 50 mls @ 100 mls/ hr IV Q8H CLARA Lactated Ringer's (Ringers, Lactated) 1,000 mls @ 100 mls/hr IV ASDIRECTED CLARA Stop: 08/06/19 00:59 Morphine Sulfate (Morphine) 2 mg IVPUSH Q2H PRN PRN Reason: Pain (severe 7-10) Stop: 08/05/19 14:29 Ondansetron HCl (Zofran Odt) 4 mg PO Q4H PRN PRN Reason: nausea, able to take PO Ondansetron HCl (Zofran) 4 mg IVPUSH Q4H PRN PRN Reason: Nausea Oxycodone HCl (Oxycodone) 5 mg PO Q4H PRN PRN Reason: Pain (moderate 4-6) Polyethylene Glycol (Miralax) 17 gm PO DAILY PRN PRN Reason: Constipation Assessment/Plan Comment:: A: 1. Acute COPD exacerbation 2. Post-surgical abdominal pain 3. Normocytic anemia 4. Hypokalemia P: 1. Acute COPD exacerbation- will monitor O2 sats. Will hold off on any steroids due to possible infection. Ordered Duonebs Q4H PRN. Continue Zosyn for now. 2. Post-surgical abdominal pain- unclear what could be causing the abdominal pain. Likely secondary to ileus and pain medication side-effect. However, will monitor for infection since CT abdomen showed possible tiny fluid collection on liver. Ordered stool studies and checking for C.diff. f/u on blood cultures. Tylenol PRN for fever and oxycodone, morphine for pain control. General surgery onboard. 3. Normocytic anemia- will check iron studies. 4.Hypokalemia- replace with KCl 40 mEq once. recheck tomorrow. Dispo: 2-3 days <Kaushik,Hooria - Last Filed: 08/04/19 23:14> H&P History of Present Illness - General Admit Problem/Dx: Admission Diagnosis/Problem Admission Diagnosis/Problem COPD, Moderate chronic obstructive pulmonary disease Exam - Vital Signs Vital Signs: Last Vital Signs Temp 36.2 C 08/04/19 19:49 Pulse 96 08/04/19 19:49 Resp 20 08/04/19 19:49 BP 137/87 08/04/19 19:49 Pulse Ox 94 L 08/04/19 19:49 - Patient Data Lab Results Last 24 hrs: Laboratory Results - last 24 hr 08/04/19 08/04/19 08/04/19 Range/Units 10:20 10:20 10:20 WBC 8.52 (4.0-11.0) K/uL RBC 3.34 L (4.30-5.90) M/uL Hgb 9.5 L (12.0-16.0) g/dL Hct 29.6 L (36.0-46.0) % MCV 88.6 (80.0-98.0) fL MCH 28.4 (27.0-32.0) pg MCHC 32.1 (31.0-37.0) g/dL RDW Std Deviation 49.8 (28.0-62.0) fl RDW Coeff of Shaq 16 H (11.0-15.0) % Plt Count 367 (150-400) K/uL MPV 9.80 (7.40-12.00) fL Neut % (Auto) 72.6 (48.0-80.0) % Lymph % (Auto) 12.9 L (16.0-40.0) % [place] % (Auto) 11.4 (0.0-15.0) % Eos % (Auto) 2.7 (0.0-7.0) % Baso % (Auto) 0.4 (0.0-1.5) % Neut # (Auto) 6.2 H (1.4-5.7) K/uL Lymph # (Auto) 1.1 (0.6-2.4) K/uL [place] # (Auto) 1.0 H (0.0-0.8) K/uL Eos # (Auto) 0.2 (0.0-0.7) K/uL Baso # (Auto) 0.0 (0.0-0.1) K/uL Nucleated RBC % 0.0 /100WBC Nucleated RBCs # 0 K/uL INR 1.04 Lactate (0.20-2.00) mmol/L Sodium 138 (136-145) mmol/L Potassium 3.2 L (3.5-5.1) mmol/L Chloride 100 (98-107) mmol/L Carbon Dioxide 26.0 (21.0-32.0) mmol/L BUN 9 (7.0-18.0) mg/dL Creatinine 0.6 (0.6-1.0) mg/dL Est Cr Clr Drug Dosing TNP Estimated GFR (MDRD) > 60.0 ml/min Glucose 94 (74-106) mg/dL POC Glucose (60-110) mg/dL Calcium 8.1 L (8.5-10.1) mg/dL Magnesium (1.8-2.4) mg/dL Total Bilirubin 0.3 (0.2-1.0) mg/dL AST 19 (15-37) IU/L ALT 15 (14-63) IU/L Alkaline Phosphatase 92 (46-116) U/L Troponin I < 0.050 (0.000-0.056) ng/mL Total Protein 6.7 (6.4-8.2) g/dL Albumin 2.2 L (3.4-5.0) g/dL Globulin 4.5 H (2.6-4.0) g/dL Albumin/Globulin Ratio 0.5 L (0.9-1.6) Urine Color Urine Appearance Urine pH (5.0-8.0) Ur Specific [place] (1.001-1.035) Urine Protein (NEGATIVE) mg/dL Urine Glucose (UA) (NEGATIVE) mg/dL Urine Ketones (NEGATIVE) mg/dL Urine Occult Blood (NEGATIVE) Urine Nitrite (NEGATIVE) Urine Bilirubin (NEGATIVE) Urine Urobilinogen (<2.0) EU/dL Ur Leukocyte Esterase (NEGATIVE) Urine RBC (0-2/HPF) Urine WBC (0-5/HPF) Ur Epithelial Cells (NONE-FEW) Urine Bacteria (NEGATIVE) Urine Mucus (NONE-MOD) 11/13/19 11/13/19 11/13/19 Range/Units 10:20 10:20 10:57 WBC (4.0-11.0) K/uL RBC (4.30-5.90) M/uL Hgb (12.0-16.0) g/dL Hct (36.0-46.0) % MCV (80.0-98.0) fL MCH (27.0-32.0) pg MCHC (31.0-37.0) g/dL RDW Std Deviation (28.0-62.0) fl RDW Coeff of Shaq (11.0-15.0) % Plt Count (150-400) K/uL MPV (7.40-12.00) fL Neut % (Auto) (48.0-80.0) % Lymph % (Auto) (16.0-40.0) % [place] % (Auto) (0.0-15.0) % Eos % (Auto) (0.0-7.0) % Baso % (Auto) (0.0-1.5) % Neut # (Auto) (1.4-5.7) K/uL Lymph # (Auto) (0.6-2.4) K/uL [place] # (Auto) (0.0-0.8) K/uL Eos # (Auto) (0.0-0.7) K/uL Baso # (Auto) (0.0-0.1) K/uL Nucleated RBC % /100WBC Nucleated RBCs # K/uL INR Lactate 0.6 (0.20-2.00) mmol/L Sodium (136-145) mmol/L Potassium (3.5-5.1) mmol/L Chloride (98-107) mmol/L Carbon Dioxide (21.0-32.0) mmol/L BUN (7.0-18.0) mg/dL Creatinine (0.6-1.0) mg/dL Est Cr Clr Drug Dosing Estimated GFR (MDRD) ml/min Glucose (74-106) mg/dL POC Glucose (60-110) mg/dL Calcium (8.5-10.1) mg/dL Magnesium 1.8 (1.8-2.4) mg/dL Total Bilirubin (0.2-1.0) mg/dL AST (15-37) IU/L ALT (14-63) IU/L Alkaline Phosphatase (46-116) U/L Troponin I (0.000-0.056) ng/mL Total Protein (6.4-8.2) g/dL Albumin (3.4-5.0) g/dL Globulin (2.6-4.0) g/dL Albumin/Globulin Ratio (0.9-1.6) Urine Color YELLOW Urine Appearance CLEAR Urine pH 7.0 (5.0-8.0) Ur Specific [place] 1.015 (1.001-1.035) Urine Protein TRACE H (NEGATIVE) mg/dL Urine Glucose (UA) NEGATIVE (NEGATIVE) mg/dL Urine Ketones 15 H (NEGATIVE) mg/dL Urine Occult Blood NEGATIVE (NEGATIVE) Urine Nitrite NEGATIVE (NEGATIVE) Urine Bilirubin NEGATIVE (NEGATIVE) Urine Urobilinogen 0.2 (<2.0) EU/dL Ur Leukocyte Esterase NEGATIVE (NEGATIVE) Urine RBC 0-1 (0-2/HPF) Urine WBC 0-2 (0-5/HPF) Ur Epithelial Cells FEW (NONE-FEW) Urine Bacteria RARE (NEGATIVE) Urine Mucus LIGHT (NONE-MOD) 08/04/19 08/04/19 Range/Units 17:29 20:26 WBC (4.0-11.0) K/uL RBC (4.30-5.90) M/uL Hgb (12.0-16.0) g/dL Hct (36.0-46.0) % MCV (80.0-98.0) fL MCH (27.0-32.0) pg MCHC (31.0-37.0) g/dL RDW Std Deviation (28.0-62.0) fl RDW Coeff of Shaq (11.0-15.0) % Plt Count (150-400) K/uL MPV (7.40-12.00) fL Neut % (Auto) (48.0-80.0) % Lymph % (Auto) (16.0-40.0) % [place] % (Auto) (0.0-15.0) % Eos % (Auto) (0.0-7.0) % Baso % (Auto) (0.0-1.5) % Neut # (Auto) (1.4-5.7) K/uL Lymph # (Auto) (0.6-2.4) K/uL [place] # (Auto) (0.0-0.8) K/uL Eos # (Auto) (0.0-0.7) K/uL Baso # (Auto) (0.0-0.1) K/uL Nucleated RBC % /100WBC Nucleated RBCs # K/uL INR Lactate (0.20-2.00) mmol/L Sodium (136-145) mmol/L Potassium (3.5-5.1) mmol/L Chloride (98-107) mmol/L Carbon Dioxide (21.0-32.0) mmol/L BUN (7.0-18.0) mg/dL Creatinine (0.6-1.0) mg/dL Est Cr Clr Drug Dosing Estimated GFR (MDRD) ml/min Glucose (74-106) mg/dL POC Glucose 148 H 156 H (60-110) mg/dL Calcium (8.5-10.1) mg/dL Magnesium (1.8-2.4) mg/dL Total Bilirubin (0.2-1.0) mg/dL AST (15-37) IU/L ALT (14-63) IU/L Alkaline Phosphatase (46-116) U/L Troponin I (0.000-0.056) ng/mL Total Protein (6.4-8.2) g/dL Albumin (3.4-5.0) g/dL Globulin (2.6-4.0) g/dL Albumin/Globulin Ratio (0.9-1.6) Urine Color Urine Appearance Urine pH (5.0-8.0) Ur Specific [place] (1.001-1.035) Urine Protein (NEGATIVE) mg/dL Urine Glucose (UA) (NEGATIVE) mg/dL Urine Ketones (NEGATIVE) mg/dL Urine Occult Blood (NEGATIVE) Urine Nitrite (NEGATIVE) Urine Bilirubin (NEGATIVE) Urine Urobilinogen (<2.0) EU/dL Ur Leukocyte Esterase (NEGATIVE) Urine RBC (0-2/HPF) Urine WBC (0-5/HPF) Ur Epithelial Cells (NONE-FEW) Urine Bacteria (NEGATIVE) Urine Mucus (NONE-MOD) Result Diagrams: 08/04/19 10:20 08/04/19 10:20 Yair Results Last 24 hrs: Microbiology 08/04/19 15:40 Campylobacter Antigen Assay - Final Stool / Feces NEGATIVE CAMPYLOBACTER AG REFERENCE RANGE: NEGATIVE C. difficile Antigen & Toxins A,B - Final 08/04/19 10:50 Influenza Type A Antigen Screen - Final Nasopharyngeal Swab NEGATIVE INFLUENZA A VIRUS AG REFERENCE RANGE: NEGATIVE Influenza Type B Antigen Screen - Final NEGATIVE INFLUENZA B VIRUS AG REFERENCE RANGE: NEGATIVE Orders Last 24hrs: Active Orders 24 hr Category Date Time Status Patient Status [ADT] Routine ADT 08/04/19 14:19 Active Blood Glucose Check, Bedside [RC] WITHMEALSANDBED Care 08/04/19 14:19 Active Cardiac Monitoring [RC] CONTINUOUS Care 08/04/19 14:23 Inactive Intake and Output [RC] Q12H Care 08/04/19 14:23 Active Notify Provider Consults [RC] ASDIRECTED Care 08/04/19 14:03 Active Oxygen Therapy [RC] PRN Care 08/04/19 14:19 Active RT Aerosol Therapy [RC] ASDIRECTED Care 08/04/19 10:19 Active RT Aerosol Therapy [RC] ASDIRECTED Care 08/04/19 15:22 Active Telemetry Monitoring [Cardiac Monitoring] [RC] . Care 08/04/19 15:59 Active DIRECTED Up With Assistance [RC] ASDIRECTED Care 08/04/19 14:19 Active VTE/DVT Education [RC] PER UNIT ROUTINE Care 08/04/19 14:19 Active Vital Signs [RC] Q4H Care 08/04/19 14:19 Active Consult to Physician [CONS] Stat Cons 08/04/19 14:03 Active Clear Liquid Diet [DIET] Diet 08/04/19 Dinner Active C DIFFICILE AG/TOXIN W/REFLEX [RM] Routine Lab 08/04/19 15:40 Results CBC WITH AUTO DIFF [HEME] AM Lab 08/05/19 05:11 Ordered CBC WITH AUTO DIFF [HEME] AM Lab 08/06/19 05:11 Ordered CBC WITH AUTO DIFF [HEME] AM Lab 08/07/19 05:11 Ordered COMPREHENSIVE METABOLIC PN,CMP [CHEM] AM Lab 08/05/19 05:11 Ordered COMPREHENSIVE METABOLIC PN,CMP [CHEM] AM Lab 08/06/19 05:11 Ordered COMPREHENSIVE METABOLIC PN,CMP [CHEM] AM Lab 08/07/19 05:11 Ordered CULTURE BLOOD [BC] Stat Lab 08/04/19 10:20 Received CULTURE BLOOD [BC] Stat Lab 08/04/19 10:51 Received CULTURE STOOL + CAMPY+SHIGATOX [RM] Routine Lab 08/04/19 15:40 Results ALPRAZolam [Xanax] Med 08/04/19 15:15 Active 2 mg PO TID PRN Acetaminophen [Tylenol] Med 08/04/19 14:19 Active 650 mg PO Q4H PRN Albuterol/Ipratropium [DuoNeb 3.0-0.5 MG/3 ML] Med 08/04/19 17:32 Active 3 ml NEB Q4H PRN Bisacodyl [Dulcolax] Med 08/04/19 14:19 Active 5 mg PO DAILY PRN Budesonide [Pulmicort] Med 08/04/19 21:00 Active 0.5 mg INH BEDTIME Enoxaparin [Lovenox] Med 08/04/19 14:30 Active 40 mg SUBCUT Q24H Insulin Aspart [NovoLOG] Med 08/05/19 07:30 Active See Protocol SUBCUT TIDAC Lactated Ringers [Ringers, Lactated] 1,000 ml Med 08/04/19 15:00 Active IV ASDIRECTED Morphine Med 08/04/19 14:19 Active 2 mg IVPUSH Q2H PRN Ondansetron [Zofran ODT] Med 08/04/19 14:19 Active 4 mg PO Q4H PRN Ondansetron [Zofran] Med 08/04/19 14:19 Active 4 mg IVPUSH Q4H PRN Piperacillin/Tazobactam [Piperacil-Tazobact] 3.375 gm Med 08/04/19 20:00 Active Sodium Chloride 0.9% [Normal Saline] 50 ml IV Q8H Polyethylene Glycol 3350 [MiraLAX] Med 08/04/19 14:19 Active 17 gm PO DAILY PRN busPIRone [Buspar] Med 08/04/19 21:00 Active 15 mg PO BID oxyCODONE Med 08/04/19 14:19 Active 5 mg PO Q4H PRN Blood Culture x2 Reflex Set [OM.PC] Stat Oth 08/04/19 10:26 Ordered Resuscitation Status Routine Resus Stat 08/04/19 14:19 Ordered Medication Orders Acetaminophen (Tylenol) 650 mg PO Q4H PRN PRN Reason: Pain (Mild 1-3)/fever Albuterol/Ipratropium (Duoneb 3.0-0.5 Mg/3 Ml) 3 ml NEB Q4H PRN PRN Reason: Shortness of Breath Alprazolam (Xanax) 2 mg PO TID PRN PRN Reason: Anxiety Last Admin: 08/04/19 17:34 Dose: 2 mg Bisacodyl (Dulcolax) 5 mg PO DAILY PRN PRN Reason: Constipation Budesonide (Pulmicort) 0.5 mg INH BEDTIME [facility] Last Admin: 08/04/19 22:45 Dose: 0.5 mg Buspirone HCl (Buspar) 15 mg PO BID [facility] Last Admin: 08/04/19 21:22 Dose: 15 mg Enoxaparin Sodium (Lovenox) 40 mg SUBCUT Q24H [facility] Last Admin: 08/04/19 15:35 Dose: 40 mg Piperacillin Sod/Tazobactam (Sod 3.375 gm/ Sodium Chloride) 50 mls @ 100 mls/ hr IV Q8H [facility] Last Admin: 08/04/19 19:46 Dose: 100 mls/hr Lactated Ringer's (Ringers, Lactated) 1,000 mls @ 100 mls/hr IV ASDIRECTED [facility] Stop: 08/06/19 00:59 Last Admin: 08/04/19 15:30 Dose: 100 mls/hr Insulin Aspart (Novolog) 0 unit SUBCUT TIDAC [facility]; Protocol Morphine Sulfate (Morphine) 2 mg IVPUSH Q2H PRN PRN Reason: Pain (severe 7-10) Stop: 08/05/19 14:29 Last Admin: 08/04/19 17:17 Dose: 2 mg Ondansetron HCl (Zofran Odt) 4 mg PO Q4H PRN PRN Reason: nausea, able to take PO Ondansetron HCl (Zofran) 4 mg IVPUSH Q4H PRN PRN Reason: Nausea Oxycodone HCl (Oxycodone) 5 mg PO Q4H PRN PRN Reason: Pain (moderate 4-6) Last Admin: 08/04/19 19:47 Dose: 5 mg Polyethylene Glycol (Miralax) 17 gm PO DAILY PRN PRN Reason: Constipation Assessment/Plan Comment:: I have seen and examined patient, I have discussed the plan of care with the Resident. Agree with the residents note unless otherwise specified in my note. A/P: CT noted, possible small liver abscess. Will cont Zosyn f/u blood cultures Surgery recs appreciated Cont DuoNebs, hold steroids for now Monitor and replete electrolytes as needed Anemia, f/i Fe studies Dispo 2-3 days
[2019-08-04] MEDS ORDERED: Albuterol/Ipratropium 3.0-0.5 MG/3 ML Neb Soln NEB PRN (15:20)
[2019-08-04] MEDS: Lactated Ringers 1,000 ML IV SCH (15:30)
[2019-08-04] MEDS: Enoxaparin 40 MG/0.4 ML Syringe SUBCUT SCH (15:35)
--- NOTE | 2019-08-04 16:55 | PCM.CONS ---
H&P History of Present Illness - General Date of Service: 08/04/19 Admit Problem/Dx: Admission Diagnosis/Problem Admission Diagnosis/Problem COPD, Moderate chronic obstructive pulmonary disease Source of Information: Patient History Limitations: Reports: No Limitations - History of Present Illness Initial Comments - Free Text/Narative: Patient is a 58-year-old female who presents with a recent history of perforated sigmoid colon. She underwent emergency surgery in [place], [place]. She had a sigmoid colon resection and end colostomy. Her postoperative course was complicated by respiratory failure, peritonitis, and adrenal insufficiency. She also developed partial wound dehiscence as well as a postoperative hematoma. Approximately 10 days ago she underwent a wound washout and closure. Over the past 4 days he has been unable to have a bowel movement. She is noted gas in her stomal bag but no stool. Today she started passing stool. She has felt bloated and felt like she could not take a deep breath. She developed a fever greater than 101 Fahrenheit. She presented the emergency room and was tachycardic, hypertensive, and slightly hypoxic. Her tachycardia improved with fluids. Her lactate was normal. White blood count was normal with no evidence of a left shift. She was anemic with a hemoglobin of 9.5. She underwent a CT scan of the chest to rule out PE. This was negative for PE and just showed emphysematous changes. She has a history of COPD. Her CT scan of the abdomen showed a new parastomal hernia containing small bowel with evidence of a possible ileus. She also had some small capsular fluid collections. Very small capsular abscesses could not be excluded. Her oxygen saturations improved with nasal cannula oxygen. She had blood cultures drawn. She denies any nausea or vomiting. Abdomen Pain Score (Numeric/FACES): 4 - Related Data Allergies/Adverse Reactions: Allergies Allergy/AdvReac Type Severity Reaction Status Date / Time No Known Allergies Allergy Verified 08/04/19 15:19 Home Medications: Home Meds ALPRAZolam [Xanax] 2 mg PO TID PRN 05/29/18 [History] Albuterol/Ipratropium [Combivent Respimat] 1 puff IH QID PRN 05/29/18 [History] Budesonide [Pulmicort] 1 dose INH BEDTIME 11/04/18 [History] Fluticasone Propionate [Flonase] 0 puff NASBOTH DAILY 11/04/18 [History] busPIRone [Buspar] 15 mg PO BID 11/04/18 [History] predniSONE [Prednisone] 20 mg PO DAILY PRN 07/11/19 [History] Acetaminophen with Codeine [Tylenol with Codeine #3 Tablet] 1 each PO Q6H PRN [History] Ondansetron [Zofran ODT] 4 mg PO Q6H PRN 08/04/19 [History] Rosuvastatin [Crestor] 5 mg PO BEDTIME 08/04/19 [History] Past Medical History HEENT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: None Cardiovascular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: Heart Murmur, Other (See Below) 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 Respiratory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: COPD, Other (See Below) Other Respiratory History: emphsyema Gastrointestinal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: Bowel Obstruction Genitourinary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: None 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: Musculoskeletal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: Arthritis Neurological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: None Psychiatric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: Anxiety Endocrine/Metabolic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: None Hematologic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: None Immunologic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: None Oncologic (Cancer)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: None Dermatologic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: None - Infectious Disease History Infectious Disease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: Chicken Pox, Measles, Mumps - Past Surgical History Head Surgeries/Procedures: Reports: None HEENT Surgical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: Tonsillectomy Cardiovascular Surgical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: Cardiac Ablation Respiratory Surgical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: None GI Surgical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: Appendectomy, Colonoscopy, Colostomy, Other (See Below) Female Surgical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: Section, Tubal Ligation Endocrine Surgical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: None Neurological Surgical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: None Musculoskeletal Surgical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: None Oncologic Surgical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: None Dermatological Surgical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: None Social & Family History - Family History Family Medical History: Noncontributory - Tobacco Use Smoking Status *Q: Never Smoker Used Tobacco, but Quit: Yes Month/Year Tobacco Last Used: 2014 Second Hand Smoke Exposure: No - Caffeine Use Caffeine Use: Reports: Coffee Other Caffeine Use: 3cups/day - Recreational Drug Use Recreational Drug Use: No H&P Review of Systems - Review of Systems: Review Of Systems: Comprehensive ROS is negative, except as noted in HPI. Exam - Exam Exam: See Below - Vital Signs Vital Signs: Last Vital Signs Temp 36.7 C 08/04/19 14:59 Pulse 106 H 08/04/19 14:59 Resp 16 08/04/19 14:59 BP 139/75 08/04/19 14:59 Pulse Ox 91 L 08/04/19 14:59 Weight: 63.503 kg - Exam Quality Assessment: Supplemental Oxygen General: Alert, Oriented HEENT: Conjunctiva Clear, Mucosa Moist & [place], Posterior Pharynx Clear Neck: Supple, Trachea Midline Lungs: Normal Respiratory Effort Cardiovascular: Tachycardia GI/Abdominal Exam: Soft, Non-Tender, Distended (Mild), Other ([place] healthy- appearing stoma that appears more prominent than it should be which is likely due to the parastomal hernia. Semisolid stool and gas in ostomy bag. Well healed midline incision). No: Guarding, Rigid, Rebound, Tender Back Exam: Normal Inspection Extremities: Normal Inspection - Patient Data Lab Results Last 24 hrs: Laboratory Results - last 24 hr 08/04/19 08/04/19 08/04/19 Range/Units 10:20 10:20 10:20 WBC 8.52 (4.0-11.0) K/uL RBC 3.34 L (4.30-5.90) M/uL Hgb 9.5 L (12.0-16.0) g/dL Hct 29.6 L (36.0-46.0) % MCV 88.6 (80.0-98.0) fL MCH 28.4 (27.0-32.0) pg MCHC 32.1 (31.0-37.0) g/dL RDW Std Deviation 49.8 (28.0-62.0) fl RDW Coeff of Shaq 16 H (11.0-15.0) % Plt Count 367 (150-400) K/uL MPV 9.80 (7.40-12.00) fL Neut % (Auto) 72.6 (48.0-80.0) % Lymph % (Auto) 12.9 L (16.0-40.0) % [place] % (Auto) 11.4 (0.0-15.0) % Eos % (Auto) 2.7 (0.0-7.0) % Baso % (Auto) 0.4 (0.0-1.5) % Neut # (Auto) 6.2 H (1.4-5.7) K/uL Lymph # (Auto) 1.1 (0.6-2.4) K/uL [place] # (Auto) 1.0 H (0.0-0.8) K/uL Eos # (Auto) 0.2 (0.0-0.7) K/uL Baso # (Auto) 0.0 (0.0-0.1) K/uL Nucleated RBC % 0.0 /100WBC Nucleated RBCs # 0 K/uL INR 1.04 Lactate (0.20-2.00) mmol/L Sodium 138 (136-145) mmol/L Potassium 3.2 L (3.5-5.1) mmol/L Chloride 100 (98-107) mmol/L Carbon Dioxide 26.0 (21.0-32.0) mmol/L BUN 9 (7.0-18.0) mg/dL Creatinine 0.6 (0.6-1.0) mg/dL Est Cr Clr Drug Dosing TNP Estimated GFR (MDRD) > 60.0 ml/min Glucose 94 (74-106) mg/dL Calcium 8.1 L (8.5-10.1) mg/dL Magnesium (1.8-2.4) mg/dL Total Bilirubin 0.3 (0.2-1.0) mg/dL AST 19 (15-37) IU/L ALT 15 (14-63) IU/L Alkaline Phosphatase 92 (46-116) U/L Troponin I < 0.050 (0.000-0.056) ng/mL Total Protein 6.7 (6.4-8.2) g/dL Albumin 2.2 L (3.4-5.0) g/dL Globulin 4.5 H (2.6-4.0) g/dL Albumin/Globulin Ratio 0.5 L (0.9-1.6) Urine Color Urine Appearance Urine pH (5.0-8.0) Ur Specific [place] (1.001-1.035) Urine Protein (NEGATIVE) mg/dL Urine Glucose (UA) (NEGATIVE) mg/dL Urine Ketones (NEGATIVE) mg/dL Urine Occult Blood (NEGATIVE) Urine Nitrite (NEGATIVE) Urine Bilirubin (NEGATIVE) Urine Urobilinogen (<2.0) EU/dL Ur Leukocyte Esterase (NEGATIVE) Urine RBC (0-2/HPF) Urine WBC (0-5/HPF) Ur Epithelial Cells (NONE-FEW) Urine Bacteria (NEGATIVE) Urine Mucus (NONE-MOD) 08/04/19 08/04/19 08/04/19 Range/Units 10:20 10:20 10:57 WBC (4.0-11.0) K/uL RBC (4.30-5.90) M/uL Hgb (12.0-16.0) g/dL Hct (36.0-46.0) % MCV (80.0-98.0) fL MCH (27.0-32.0) pg MCHC (31.0-37.0) g/dL RDW Std Deviation (28.0-62.0) fl RDW Coeff of Shaq (11.0-15.0) % Plt Count (150-400) K/uL MPV (7.40-12.00) fL Neut % (Auto) (48.0-80.0) % Lymph % (Auto) (16.0-40.0) % [place] % (Auto) (0.0-15.0) % Eos % (Auto) (0.0-7.0) % Baso % (Auto) (0.0-1.5) % Neut # (Auto) (1.4-5.7) K/uL Lymph # (Auto) (0.6-2.4) K/uL [place] # (Auto) (0.0-0.8) K/uL Eos # (Auto) (0.0-0.7) K/uL Baso # (Auto) (0.0-0.1) K/uL Nucleated RBC % /100WBC Nucleated RBCs # K/uL INR Lactate 0.6 (0.20-2.00) mmol/L Sodium (136-145) mmol/L Potassium (3.5-5.1) mmol/L Chloride (98-107) mmol/L Carbon Dioxide (21.0-32.0) mmol/L BUN (7.0-18.0) mg/dL Creatinine (0.6-1.0) mg/dL Est Cr Clr Drug Dosing Estimated GFR (MDRD) ml/min Glucose (74-106) mg/dL Calcium (8.5-10.1) mg/dL Magnesium 1.8 (1.8-2.4) mg/dL Total Bilirubin (0.2-1.0) mg/dL AST (15-37) IU/L ALT (14-63) IU/L Alkaline Phosphatase (46-116) U/L Troponin I (0.000-0.056) ng/mL Total Protein (6.4-8.2) g/dL Albumin (3.4-5.0) g/dL Globulin (2.6-4.0) g/dL Albumin/Globulin Ratio (0.9-1.6) Urine Color YELLOW Urine Appearance CLEAR Urine pH 7.0 (5.0-8.0) Ur Specific [place] 1.015 (1.001-1.035) Urine Protein TRACE H (NEGATIVE) mg/dL Urine Glucose (UA) NEGATIVE (NEGATIVE) mg/dL Urine Ketones 15 H (NEGATIVE) mg/dL Urine Occult Blood NEGATIVE (NEGATIVE) Urine Nitrite NEGATIVE (NEGATIVE) Urine Bilirubin NEGATIVE (NEGATIVE) Urine Urobilinogen 0.2 (<2.0) EU/dL Ur Leukocyte Esterase NEGATIVE (NEGATIVE) Urine RBC 0-1 (0-2/HPF) Urine WBC 0-2 (0-5/HPF) Ur Epithelial Cells FEW (NONE-FEW) Urine Bacteria RARE (NEGATIVE) Urine Mucus LIGHT (NONE-MOD) Result Diagrams: 08/04/19 10:20 08/04/19 10:20 Yair Results Last 24 hrs: Microbiology 08/04/19 10:50 Influenza Type A Antigen Screen - Final Nasopharyngeal Swab NEGATIVE INFLUENZA A VIRUS AG REFERENCE RANGE: NEGATIVE Influenza Type B Antigen Screen - Final NEGATIVE INFLUENZA B VIRUS AG REFERENCE RANGE: NEGATIVE Consult PN Assessment/Plan Procedures: Procedures AIRWAY INHALATION TREATMENT (11/07/18) ANTINUCLEAR ANTIBODIES (10/25/16) ASSAY OF AMYLASE (07/14/17) ASSAY OF LACTIC ACID (05/29/18) ASSAY OF LIPASE (07/11/19) ASSAY OF TROPONIN QUANT (05/29/18) BLOOD CULTURE FOR BACTERIA (07/11/19) BLOOD GASES ANY COMBINATION (11/07/18) COMPLETE CBC W/AUTO DIFF WBC (07/11/19) COMPREHEN METABOLIC PANEL (07/11/19) CONTRAST X-RAY EXAM OF COLON (11/11/17) CT ABD & PELVIS W/O CONTRAST (07/11/19) CULTURE AEROBIC IDENTIFY (11/07/18) CULTURE OTHR SPECIMN AEROBIC (11/07/18) ECHO EXAM OF ABDOMEN (10/10/17) ELECTROCARDIOGRAM TRACING (05/29/18) EMERGENCY DEPT VISIT (07/11/19) EMERGENCY DEPT VISIT (05/29/18) GLUCOSE BLOOD TEST (05/29/18) HEPATITIS C AB TEST (03/04/19) HYDRATE IV INFUSION ADD-ON (07/11/19) IIV4 VACC NO PRSV 0.5 ML IM (05/29/18) INFLUENZA ASSAY W/OPTIC (11/07/18) LIPID PANEL (05/31/19) METABOLIC PANEL TOTAL CA (05/29/18) MICROBE SUSCEPTIBLE YAIR (11/07/18) PPSV23 VACC 2 YRS+ SUBQ/IM (05/29/18) RBC SED RATE AUTOMATED (10/25/16) RHEUMATOID FACTOR TEST QUAL (10/25/16) ROUTINE VENIPUNCTURE (07/11/19) SMEAR GRAM STAIN (11/07/18) THER/PROPH/DIAG INJ IV PUSH (11/07/18) THER/PROPH/DIAG INJ SC/IM (05/29/18) THER/PROPH/DIAG IV INF ADDON (05/29/18) THER/PROPH/DIAG IV INF INIT (07/11/19) TX/PRO/DX INJ NEW DRUG ADDON (07/11/19) TX/PRO/DX INJ SAME DRUG GAS OPERATIONS ANALYST (05/29/18) URINALYSIS AUTO W/O SCOPE (07/11/19) URINALYSIS AUTO W/SCOPE (05/29/18) URINE CULTURE/COLONY COUNT (05/29/18) WITHDRAWAL OF ARTERIAL BLOOD (11/07/18) X-RAY EXAM ABDOMEN 1 VIEW (10/27/17) X-RAY EXAM CHEST 1 VIEW (11/07/18) X-RAY UPPER GI DELAY W/O KUB (10/17/17) Problem List Initiated/Reviewed/Updated: Yes Plan: Liver capsule fluid collections: Given her recent history of fecal peritonitis, it is possible that she has small liver abscesses that may be new or resolving. These appear too small to be drained and it isn't clear if these are abscesses. Will follow up on blood cultures. Start broad-spectrum antibiotics that will cover any enteric bacteria; IV Zosyn. Parastomal hernia: I reviewed the patient's CT scan. She does not appear to have a small bowel obstruction due to this parastomal hernia however there is some mesenteric inflammation. The parastomal hernia may have just occurred recently and could be why she had the prodromal loss of stool output. Place the patient on a clear liquid diet for now. Will monitor ostomy output closely. She will need to follow-up with her primary surgeon regarding this finding and to discuss any possible revision in the future. At this point it does not appear to be an acute process or that the bowel is threatened given that she is having stool output and her abdomen appears benign other than the mild distention. If it becomes an acute process she will need to be transferred. Fever, tachycardia: Work up for any other source of sepsis per medicine service.
[2019-08-04] MEDS ORDERED: Potassium Chloride 20 MEQ Tab.ER PO ONE (17:04)
[2019-08-04] MEDS: Morphine 10 MG/ML Syringe IVPUSH PRN (17:17)
[2019-08-04] MEDS: ALPRAZolam 0.5 MG Tab PO PRN (17:34)
[2019-08-04] MEDS: Piperacillin/Tazobactam 3.375 GM in Sodium Chloride 0.9% 50 ML IV SCH (19:46)
[2019-08-04] MEDS: oxyCODONE 5 MG Tab PO PRN (19:47)
[2019-08-04] MEDS: busPIRone 5 MG Tab PO SCH (21:22)
[2019-08-04] MEDS: Budesonide 0.5 MG/2 ML Neb Susp INH SCH (22:45)
[2019-08-05] MEDS: Lactated Ringers 1,000 ML IV SCH (01:13)
[2019-08-05] MEDS: Morphine 10 MG/ML Syringe IVPUSH PRN ×3 (01:19→08:47)
[2019-08-05] MEDS: Piperacillin/Tazobactam 3.375 GM in Sodium Chloride 0.9% 50 ML IV SCH ×4 (03:30→22:34)
[2019-08-05] MEDS: oxyCODONE 5 MG Tab PO PRN ×3 (04:10→21:23)
[2019-08-05] MEDS: Albuterol/Ipratropium 3.0-0.5 MG/3 ML Neb Soln NEB PRN (04:10)
[2019-08-05 05:58] LABS: BLOOD UREA NITROGEN,BUN 7 mg/dL (7.0-18.0); CARBON DIOXIDE,CO2 27.7 mmol/L (21.0-32.0); CHLORIDE,CL 107 mmol/L (98-107); GLUCOSE RANDOM 124 mg/dL (74-106); SODIUM,NA 143 mmol/L (136-145)
[2019-08-05] MEDS: busPIRone 5 MG Tab PO SCH ×2 (08:48→21:20)
[2019-08-05] MEDS: Insulin Aspart 100 Units/ML 3 ML Pen SUBCUT SCH ×3 (08:51→17:31)
[2019-08-05] MEDS: Morphine 2 MG/ML Syringe IVPUSH PRN ×5 (11:15→23:15)
--- NOTE | 2019-08-05 12:02 | PCM.PN ---
<Tree Trevino - Last Filed: 08/05/19 20:29> - General Info Date of Service: 08/05/19 Subjective Update: No acute events overnight. Doing better this morning. feels better. abdominal pain has improved. no nausea or vomiting. tolerating PO intake. - Patient Data Vitals - Most Recent: Last Vital Signs Temp 36.6 C 08/05/19 11:40 Pulse 99 08/05/19 11:40 Resp 16 08/05/19 11:40 BP 134/80 08/05/19 11:40 Pulse Ox 94 L 08/05/19 11:40 Weight - Most Recent: 63.503 kg I&O - Last 24 Hours: Intake & Output 08/04/19 08/05/19 08/05/19 22:59 06:59 14:59 Intake Total 50 1646 Output Total 900 Balance 50 746 Lab Results Last 24 Hours: Laboratory Results - last 24 hr 08/04/19 08/04/19 08/04/19 Range/Units 10:20 17:29 20:26 WBC (4.0-11.0) K/uL RBC (4.30-5.90) M/uL Hgb (12.0-16.0) g/dL Hct (36.0-46.0) % MCV (80.0-98.0) fL MCH (27.0-32.0) pg MCHC (31.0-37.0) g/dL RDW Std Deviation (28.0-62.0) fl RDW Coeff of Shaq (11.0-15.0) % Plt Count (150-400) K/uL MPV (7.40-12.00) fL Add Manual Diff Neutrophils % (Manual) (48.0-80.0) % Band Neutrophils % % Lymphocytes % (Manual) (16.0-40.0) % Monocytes % (Manual) (0.0-15.0) % Metamyelocytes % % Nucleated RBC % /100WBC Absolute Seg Neuts (1.4-5.7) Band Neutrophils # Lymphocytes # (Manual) (0.6-2.4) Monocytes # (Manual) (0.0-0.8) Absolute Metamyelocyte Nucleated RBCs # K/uL Sodium (136-145) mmol/L Potassium (3.5-5.1) mmol/L Chloride (98-107) mmol/L Carbon Dioxide (21.0-32.0) mmol/L BUN (7.0-18.0) mg/dL Creatinine (0.6-1.0) mg/dL Est Cr Clr Drug Dosing mL/min Estimated GFR (MDRD) ml/min Glucose (74-106) mg/dL POC Glucose 148 H 156 H (60-110) mg/dL Calcium (8.5-10.1) mg/dL Magnesium 1.8 (1.8-2.4) mg/dL Total Bilirubin (0.2-1.0) mg/dL AST (15-37) IU/L ALT (14-63) IU/L Alkaline Phosphatase (46-116) U/L Total Protein (6.4-8.2) g/dL Albumin (3.4-5.0) g/dL Globulin (2.6-4.0) g/dL Albumin/Globulin Ratio (0.9-1.6) 08/05/19 08/05/19 08/05/19 Range/Units 05:10 05:10 06:40 WBC 5.01 (4.0-11.0) K/uL RBC 3.18 L (4.30-5.90) M/uL Hgb 8.9 L (12.0-16.0) g/dL Hct 28.5 L (36.0-46.0) % MCV 89.6 (80.0-98.0) fL MCH 28.0 (27.0-32.0) pg MCHC 31.2 (31.0-37.0) g/dL RDW Std Deviation 50.3 (28.0-62.0) fl RDW Coeff of Shaq 15 (11.0-15.0) % Plt Count 376 (150-400) K/uL MPV 9.60 (7.40-12.00) fL Add Manual Diff YES Neutrophils % (Manual) 59 (48.0-80.0) % Band Neutrophils % 5 % Lymphocytes % (Manual) 28 (16.0-40.0) % Monocytes % (Manual) 7 (0.0-15.0) % Metamyelocytes % 1 % Nucleated RBC % 0.0 /100WBC Absolute Seg Neuts 3.0 (1.4-5.7) Band Neutrophils # 0.3 Lymphocytes # (Manual) 1.4 (0.6-2.4) Monocytes # (Manual) 0.4 (0.0-0.8) Absolute Metamyelocyte 0.1 Nucleated RBCs # 0 K/uL Sodium 143 (136-145) mmol/L Potassium 4.0 (3.5-5.1) mmol/L Chloride 107 (98-107) mmol/L Carbon Dioxide 27.7 (21.0-32.0) mmol/L BUN 7 (7.0-18.0) mg/dL Creatinine 0.5 L (0.6-1.0) mg/dL Est Cr Clr Drug Dosing 119.95 mL/min Estimated GFR (MDRD) > 60.0 ml/min Glucose 124 H (74-106) mg/dL POC Glucose 98 (60-110) mg/dL Calcium 8.2 L (8.5-10.1) mg/dL Magnesium (1.8-2.4) mg/dL Total Bilirubin 0.3 (0.2-1.0) mg/dL AST 10 L (15-37) IU/L ALT 15 (14-63) IU/L Alkaline Phosphatase 74 (46-116) U/L Total Protein 6.3 L (6.4-8.2) g/dL Albumin 1.9 L (3.4-5.0) g/dL Globulin 4.4 H (2.6-4.0) g/dL Albumin/Globulin Ratio 0.4 L (0.9-1.6) 08/05/19 Range/Units 11:12 WBC (4.0-11.0) K/uL RBC (4.30-5.90) M/uL Hgb (12.0-16.0) g/dL Hct (36.0-46.0) % MCV (80.0-98.0) fL MCH (27.0-32.0) pg MCHC (31.0-37.0) g/dL RDW Std Deviation (28.0-62.0) fl RDW Coeff of Shaq (11.0-15.0) % Plt Count (150-400) K/uL MPV (7.40-12.00) fL Add Manual Diff Neutrophils % (Manual) (48.0-80.0) % Band Neutrophils % % Lymphocytes % (Manual) (16.0-40.0) % Monocytes % (Manual) (0.0-15.0) % Metamyelocytes % % Nucleated RBC % /100WBC Absolute Seg Neuts (1.4-5.7) Band Neutrophils # Lymphocytes # (Manual) (0.6-2.4) Monocytes # (Manual) (0.0-0.8) Absolute Metamyelocyte Nucleated RBCs # K/uL Sodium (136-145) mmol/L Potassium (3.5-5.1) mmol/L Chloride (98-107) mmol/L Carbon Dioxide (21.0-32.0) mmol/L BUN (7.0-18.0) mg/dL Creatinine (0.6-1.0) mg/dL Est Cr Clr Drug Dosing mL/min Estimated GFR (MDRD) ml/min Glucose (74-106) mg/dL POC Glucose 131 H (60-110) mg/dL Calcium (8.5-10.1) mg/dL Magnesium (1.8-2.4) mg/dL Total Bilirubin (0.2-1.0) mg/dL AST (15-37) IU/L ALT (14-63) IU/L Alkaline Phosphatase (46-116) U/L Total Protein (6.4-8.2) g/dL Albumin (3.4-5.0) g/dL Globulin (2.6-4.0) g/dL Albumin/Globulin Ratio (0.9-1.6) Yair Results Last 24 Hours: Microbiology 08/04/19 15:40 Campylobacter Antigen Assay - Final Stool / Feces NEGATIVE CAMPYLOBACTER AG REFERENCE RANGE: NEGATIVE Shiga Toxin I - Final NEGATIVE FOR SHIGA TOXIN 1 REFERENCE RANGE: NEGATIVE Shiga Toxin II - Final NEGATIVE FOR SHIGA TOXIN 2 REFERENCE RANGE: NEGATIVE C. difficile Antigen & Toxins A,B - Final 08/04/19 10:51 Aerobic Blood Culture - Preliminary Blood - Venous - Lab Draw NO GROWTH AFTER 1 DAY Anaerobic Blood Culture - Preliminary NO GROWTH AFTER 1 DAY 08/04/19 10:20 Aerobic Blood Culture - Preliminary Blood - Venous NO GROWTH AFTER 1 DAY Anaerobic Blood Culture - Preliminary NO GROWTH AFTER 1 DAY 08/04/19 10:50 Influenza Type A Antigen Screen - Final Nasopharyngeal Swab NEGATIVE INFLUENZA A VIRUS AG REFERENCE RANGE: NEGATIVE Influenza Type B Antigen Screen - Final NEGATIVE INFLUENZA B VIRUS AG REFERENCE RANGE: NEGATIVE Med Orders - Current: Current Medications Acetaminophen (Tylenol) 650 mg PO Q4H PRN PRN Reason: Pain (Mild 1-3)/fever Albuterol/Ipratropium (Duoneb 3.0-0.5 Mg/3 Ml) 3 ml NEB Q4H PRN PRN Reason: Shortness of Breath Last Admin: 08/05/19 04:10 Dose: 3 ml Alprazolam (Xanax) 2 mg PO TID PRN PRN Reason: Anxiety Last Admin: 08/04/19 17:34 Dose: 2 mg Bisacodyl (Dulcolax) 5 mg PO DAILY PRN PRN Reason: Constipation Budesonide (Pulmicort) 0.5 mg INH BEDTIME [facility] Last Admin: 08/04/19 22:45 Dose: 0.5 mg Buspirone HCl (Buspar) 15 mg PO BID [facility] Last Admin: 08/05/19 08:48 Dose: 15 mg Enoxaparin Sodium (Lovenox) 40 mg SUBCUT Q24H [facility] Last Admin: 08/04/19 15:35 Dose: 40 mg Lactated Ringer's (Ringers, Lactated) 1,000 mls @ 100 mls/hr IV ASDIRECTED [facility] Stop: 08/06/19 00:59 Last Admin: 08/05/19 01:13 Dose: 100 mls/hr Piperacillin Sod/Tazobactam (Sod 3.375 gm/ Sodium Chloride) 50 mls @ 100 mls/ hr IV Q6H [facility] Last Admin: 08/05/19 10:41 Dose: 100 mls/hr Insulin Aspart (Novolog) 0 unit SUBCUT TIDAC [facility]; Protocol Last Admin: 08/05/19 11:28 Dose: Not Given Morphine Sulfate (Morphine) 2 mg IVPUSH Q2H PRN PRN Reason: Pain (severe 7-10) Last Admin: 08/05/19 11:15 Dose: 2 mg Ondansetron HCl (Zofran Odt) 4 mg PO Q4H PRN PRN Reason: nausea, able to take PO Ondansetron HCl (Zofran) 4 mg IVPUSH Q4H PRN PRN Reason: Nausea Oxycodone HCl (Oxycodone) 5 mg PO Q4H PRN PRN Reason: Pain (moderate 4-6) Last Admin: 08/05/19 09:45 Dose: 5 mg Polyethylene Glycol (Miralax) 17 gm PO DAILY PRN PRN Reason: Constipation Discontinued Medications Albuterol/Ipratropium (Duoneb 3.0-0.5 Mg/3 Ml) 3 ml NEB ONETIME ONE Stop: 08/04/19 10:20 Last Admin: 08/04/19 10:25 Dose: 3 ml Albuterol/Ipratropium (Duoneb 3.0-0.5 Mg/3 Ml) 3 ml NEB Q6H PRN PRN Reason: Shortness of Breath Sodium Chloride (Normal Saline) 1,000 mls @ 500 mls/hr IV STAT ONE Stop: 08/04/19 12:28 Last Admin: 08/04/19 10:37 Dose: 500 mls/hr Piperacillin Sod/Tazobactam (Sod 3.375 gm/ Sodium Chloride) 50 mls @ 100 mls/ hr IV ONETIME ONE Stop: 08/04/19 14:09 Last Admin: 08/04/19 13:59 Dose: 100 mls/hr Piperacillin Sod/Tazobactam (Sod 3.375 gm/ Sodium Chloride) 50 mls @ 100 mls/ hr IV Q8H [facility] Last Admin: 08/05/19 03:30 Dose: 100 mls/hr Iopamidol (Isovue Multipack-370 (76%)) 80 ml IVPUSH ONETIME STA Stop: 08/04/19 13:01 Last Admin: 08/04/19 13:01 Dose: 80 ml Methylprednisolone Sodium Succinate (Solu-Medrol) 125 mg IVPUSH ONETIME ONE Stop: 08/04/19 10:26 Last Admin: 08/04/19 10:42 Dose: 125 mg Morphine Sulfate (Morphine) 2 mg IVPUSH ONETIME ONE Stop: 08/04/19 13:51 Last Admin: 08/04/19 13:55 Dose: 2 mg Morphine Sulfate (Morphine) 2 mg IVPUSH Q2H PRN PRN Reason: Pain (severe 7-10) Stop: 08/05/19 14:29 Last Admin: 08/05/19 08:47 Dose: 2 mg Potassium Chloride (Klor-Con M20) 40 meq PO ONETIME ONE Stop: 08/04/19 17:05 Last Admin: 08/04/19 17:18 Dose: 40 meq - Exam General: Alert, Oriented, Cooperative, No Acute Distress Lungs: Clear to Auscultation, Normal Respiratory Effort Cardiovascular: Regular Rate, Regular Rhythm GI/Abdominal Exam: Other (colostomy bag in place. No erythema or drainage. Incision wound is clean and dry. Actibe bowel sounds. ) Extremities: Normal Inspection, No Pedal Edema - Problem List Review Problem List Initiated/Reviewed/Updated: Yes - My Orders Last 24 Hours: My Active Orders 08/04/19 14:19 Patient Status [ADT] Routine Blood Glucose Check, Bedside [RC] WITHMEALSANDBED Oxygen Therapy [RC] PRN Up With Assistance [RC] ASDIRECTED VTE/DVT Education [RC] PER UNIT ROUTINE Vital Signs [RC] Q4H Acetaminophen [Tylenol] 650 mg PO Q4H PRN Bisacodyl [Dulcolax] 5 mg PO DAILY PRN Ondansetron [Zofran ODT] 4 mg PO Q4H PRN Ondansetron [Zofran] 4 mg IVPUSH Q4H PRN Polyethylene Glycol 3350 [MiraLAX] 17 gm PO DAILY PRN oxyCODONE 5 mg PO Q4H PRN Resuscitation Status Routine 08/04/19 14:23 Cardiac Monitoring [RC] CONTINUOUS Intake and Output [RC] Q12H 08/04/19 14:30 Enoxaparin [Lovenox] 40 mg SUBCUT Q24H 08/04/19 15:00 Lactated Ringers [Ringers, Lactated] 1,000 ml IV ASDIRECTED 08/04/19 15:15 ALPRAZolam [Xanax] 2 mg PO TID PRN 08/04/19 15:22 RT Aerosol Therapy [RC] ASDIRECTED 08/04/19 15:40 C DIFFICILE AG/TOXIN W/REFLEX [RM] Routine CULTURE STOOL + CAMPY+SHIGATOX [RM] Routine 08/04/19 17:32 Albuterol/Ipratropium [DuoNeb 3.0-0.5 MG/3 ML] 3 ml NEB Q4H PRN 08/04/19 21:00 Budesonide [Pulmicort] 0.5 mg INH BEDTIME busPIRone [Buspar] 15 mg PO BID 08/05/19 07:30 Insulin Aspart [NovoLOG] See Protocol SUBCUT TIDAC 08/05/19 07:50 Consult to Physical Therapy [PT Evaluation and Treatment] [CONS] Routine 08/05/19 10:00 Piperacillin/Tazobactam [Piperacil-Tazobact] 3.375 gm Sodium Chloride 0.9% [ Normal Saline] 50 ml IV Q6H 08/05/19 11:00 Morphine 2 mg IVPUSH Q2H PRN 08/05/19 Lunch Regular Diet [DIET] 08/06/19 05:11 CBC WITH AUTO DIFF [HEME] AM COMPREHENSIVE METABOLIC PN,CMP [CHEM] AM 08/07/19 05:11 CBC WITH AUTO DIFF [HEME] AM COMPREHENSIVE METABOLIC PN,CMP [CHEM] AM - Assessment Assessment:: A: 1. Post-surgical abdominal pain, improved 2. COPD exacerbation 3. Normocytic anemia P: 1. Abdominal pain is much improved. Having bowel movements which are more formed today. Stool studies negative. Pending blood culture results. Will continue with antibiotics for now until blood cultures are back. Duonebs PRN. Plan to discharge tomorrow on home health. - Plan Plan:: I have seen and examined patient, I have discussed the plan of care with the Resident. Agree with the residents note unless otherwise specified in my note. A/P: CT noted, possible small liver abscess. Will cont Zosyn f/u blood cultures Surgery recs appreciated Cont DuoNebs, hold steroids for now Monitor and replete electrolytes as needed Anemia, f/i Fe studies Dispo 2-3 days <Gabriele Faulkner - Last Filed: 08/07/19 09:38> - Patient Data Vitals - Most Recent: Last Vital Signs Temp 36.8 C 08/06/19 13:00 Pulse 109 H 08/06/19 13:00 Resp 20 08/06/19 13:00 BP 126/82 08/06/19 13:00 Pulse Ox 97 08/06/19 13:00 I&O - Last 24 Hours: Intake & Output 08/06/19 08/07/19 08/07/19 22:59 06:59 14:59 Intake Total 850 Output Total 50 Balance 800 Lab Results Last 24 Hours: Laboratory Results - last 24 hr 08/06/19 08/06/19 08/06/19 Range/Units 11:41 11:55 17:22 Sodium 143 (136-145) mmol/L Potassium 3.4 L (3.5-5.1) mmol/L Chloride 105 (98-107) mmol/L Carbon Dioxide 31.5 (21.0-32.0) mmol/L BUN 7 (7.0-18.0) mg/dL Creatinine 0.6 (0.6-1.0) mg/dL Est Cr Clr Drug Dosing 99.96 mL/min Estimated GFR (MDRD) > 60.0 ml/min Glucose 105 (74-106) mg/dL POC Glucose 87 96 (60-110) mg/dL Calcium 8.3 L (8.5-10.1) mg/dL Magnesium 1.7 L (1.8-2.4) mg/dL Yair Results Last 24 Hours: Microbiology 08/04/19 10:51 Aerobic Blood Culture - Preliminary Blood - Venous - Lab Draw NO GROWTH AFTER 2 DAYS Anaerobic Blood Culture - Preliminary NO GROWTH AFTER 2 DAYS 08/04/19 10:20 Aerobic Blood Culture - Preliminary Blood - Venous NO GROWTH AFTER 2 DAYS Anaerobic Blood Culture - Preliminary NO GROWTH AFTER 2 DAYS 08/04/19 15:40 Stool Culture - Final Stool / Feces NO SALMONELLA, SHIGELLA,OR E.COLI O157 ISOLATED Campylobacter Antigen Assay - Final NEGATIVE CAMPYLOBACTER AG REFERENCE RANGE: NEGATIVE Shiga Toxin I - Final NEGATIVE FOR SHIGA TOXIN 1 REFERENCE RANGE: NEGATIVE Shiga Toxin II - Final NEGATIVE FOR SHIGA TOXIN 2 REFERENCE RANGE: NEGATIVE C. difficile Antigen & Toxins A,B - Final Med Orders - Current: Current Medications Discontinued Medications Acetaminophen (Tylenol) 650 mg PO Q4H PRN PRN Reason: Pain (Mild 1-3)/fever Albuterol/Ipratropium (Duoneb 3.0-0.5 Mg/3 Ml) 3 ml NEB ONETIME ONE Stop: 08/04/19 10:20 Last Admin: 08/04/19 10:25 Dose: 3 ml Albuterol/Ipratropium (Duoneb 3.0-0.5 Mg/3 Ml) 3 ml NEB Q6H PRN PRN Reason: Shortness of Breath Albuterol/Ipratropium (Duoneb 3.0-0.5 Mg/3 Ml) 3 ml NEB Q4H PRN PRN Reason: Shortness of Breath Last Admin: 08/06/19 14:38 Dose: 3 ml Alprazolam (Xanax) 2 mg PO TID PRN PRN Reason: Anxiety Last Admin: 08/06/19 10:39 Dose: 2 mg Bisacodyl (Dulcolax) 5 mg PO DAILY PRN PRN Reason: Constipation Budesonide (Pulmicort) 0.5 mg INH BEDTIME [facility] Last Admin: 08/05/19 21:44 Dose: 0.5 mg Buspirone HCl (Buspar) 15 mg PO BID [facility] Last Admin: 08/06/19 09:53 Dose: 15 mg Enoxaparin Sodium (Lovenox) 40 mg SUBCUT Q24H [facility] Last Admin: 08/06/19 15:13 Dose: 40 mg Sodium Chloride (Normal Saline) 1,000 mls @ 500 mls/hr IV STAT ONE Stop: 08/04/19 12:28 Last Admin: 08/04/19 10:37 Dose: 500 mls/hr Piperacillin Sod/Tazobactam (Sod 3.375 gm/ Sodium Chloride) 50 mls @ 100 mls/ hr IV ONETIME ONE Stop: 08/04/19 14:09 Last Admin: 08/04/19 13:59 Dose: 100 mls/hr Piperacillin Sod/Tazobactam (Sod 3.375 gm/ Sodium Chloride) 50 mls @ 100 mls/ hr IV Q8H [facility] Last Admin: 08/05/19 03:30 Dose: 100 mls/hr Lactated Ringer's (Ringers, Lactated) 1,000 mls @ 100 mls/hr IV ASDIRECTED [facility] Stop: 08/06/19 00:59 Last Admin: 08/05/19 01:13 Dose: 100 mls/hr Piperacillin Sod/Tazobactam (Sod 3.375 gm/ Sodium Chloride) 50 mls @ 100 mls/ hr IV Q6H [facility] Last Admin: 08/06/19 15:21 Dose: 100 mls/hr Iron Sucrose 100 mg/ Sodium (Chloride) 105 mls @ 400 mls/hr IV ONETIME ONE Stop: 08/06/19 07:25 Last Admin: 08/06/19 07:57 Dose: 400 mls/hr Magnesium Sulfate 2 gm/ Premix 50 mls @ 25 mls/hr IV ONETIME ONE Stop: 08/06/19 17:02 Last Admin: 08/06/19 15:14 Dose: 25 mls/hr Insulin Aspart (Novolog) 0 unit SUBCUT TIDAC [facility]; Protocol Last Admin: 08/06/19 18:00 Dose: Not Given Iopamidol (Isovue Multipack-370 (76%)) 80 ml IVPUSH ONETIME STA Stop: 08/04/19 13:01 Last Admin: 08/04/19 13:01 Dose: 80 ml Methylprednisolone Sodium Succinate (Solu-Medrol) 125 mg IVPUSH ONETIME ONE Stop: 08/04/19 10:26 Last Admin: 08/04/19 10:42 Dose: 125 mg Morphine Sulfate (Morphine) 2 mg IVPUSH ONETIME ONE Stop: 08/04/19 13:51 Last Admin: 08/04/19 13:55 Dose: 2 mg Morphine Sulfate (Morphine) 2 mg IVPUSH Q2H PRN PRN Reason: Pain (severe 7-10) Stop: 08/05/19 14:29 Last Admin: 08/05/19 08:47 Dose: 2 mg Morphine Sulfate (Morphine) 2 mg IVPUSH Q2H PRN PRN Reason: Pain (severe 7-10) Last Admin: 08/06/19 07:59 Dose: 2 mg Ondansetron HCl (Zofran Odt) 4 mg PO Q4H PRN PRN Reason: nausea, able to take PO Ondansetron HCl (Zofran) 4 mg IVPUSH Q4H PRN PRN Reason: Nausea Oxycodone HCl (Oxycodone) 5 mg PO Q4H PRN PRN Reason: Pain (moderate 4-6) Last Admin: 08/05/19 21:23 Dose: 5 mg Oxycodone HCl (Oxycodone) 10 mg PO Q6H PRN PRN Reason: Pain (moderate 4-6) Last Admin: 08/06/19 16:57 Dose: 10 mg Polyethylene Glycol (Miralax) 17 gm PO DAILY PRN PRN Reason: Constipation Potassium Chloride (Klor-Con M20) 40 meq PO ONETIME ONE Stop: 08/04/19 17:05 Last Admin: 08/04/19 17:18 Dose: 40 meq Potassium Chloride (Klor-Con M20) 40 meq PO Q4H [facility] Stop: 08/06/19 11:16 Last Admin: 08/06/19 11:52 Dose: 40 meq Potassium Chloride (Potassium Chloride) 40 meq PO ONETIME ONE Stop: 08/06/19 15:05 Last Admin: 08/06/19 15:14 Dose: 40 meq - Plan Plan:: I have seen and evaluated the patient and agree with the residents note unless specified in my note
[2019-08-05] MEDS: ALPRAZolam 0.5 MG Tab PO PRN ×2 (12:09→21:19)
[2019-08-05] MEDS: Enoxaparin 40 MG/0.4 ML Syringe SUBCUT SCH (15:03)
[2019-08-05] MEDS: Budesonide 0.5 MG/2 ML Neb Susp INH SCH (21:44)
[2019-08-05 21:46] LABS: HEMOGLOBIN A1C 5.7 % (4.5-6.2)
[2019-08-06] MEDS: Morphine 2 MG/ML Syringe IVPUSH PRN ×3 (02:06→07:59)
[2019-08-06] MEDS: Albuterol/Ipratropium 3.0-0.5 MG/3 ML Neb Soln NEB PRN ×2 (02:12→14:38)
[2019-08-06] MEDS: Piperacillin/Tazobactam 3.375 GM in Sodium Chloride 0.9% 50 ML IV SCH ×3 (03:48→15:21)
[2019-08-06 06:37] LABS: BLOOD UREA NITROGEN,BUN 8 mg/dL (7.0-18.0); CARBON DIOXIDE,CO2 29.8 mmol/L (21.0-32.0); CHLORIDE,CL 108 mmol/L (98-107); GLUCOSE RANDOM 85 mg/dL (74-106); SODIUM,NA 144 mmol/L (136-145)
[2019-08-06] MEDS ORDERED: Iron Sucrose Complex 100 MG in Sodium Chloride 0.9% 100 ML IV ONE (07:10)
[2019-08-06] MEDS: Insulin Aspart 100 Units/ML 3 ML Pen SUBCUT SCH ×3 (07:46→18:00)
[2019-08-06] MEDS: Potassium Chloride 20 MEQ Tab.ER PO SCH ×2 (07:58→11:52)
[2019-08-06] MEDS: busPIRone 5 MG Tab PO SCH (09:53)
[2019-08-06] MEDS: oxyCODONE 5 MG Tab PO PRN ×2 (09:54→16:57)
--- NOTE | 2019-08-06 10:03 | PCM.CONSN ---
- General Info Date of Service: 08/05/19 Subjective Update: Patient feels better today. Her vitals were stable overnight. Her labs this morning are unchanged. She feels less distended. She is having more stool and gas output. She denies nausea or vomiting. Her diet was advanced to regular and she is tolerating that well. She complains of feeling weak. Her blood and stool cultures have come back negative. - Review of Systems General: Reports: Weakness HEENT: Reports: No Symptoms Pulmonary: Reports: No Symptoms Cardiovascular: Reports: No Symptoms Gastrointestinal: Reports: No Symptoms - Patient Data Vitals - Most Recent: Last Vital Signs Temp 36.7 C 08/06/19 07:44 Pulse 103 H 08/06/19 07:44 Resp 18 08/06/19 07:44 BP 127/90 08/06/19 07:44 Pulse Ox 97 08/06/19 07:44 Weight - Most Recent: 63.503 kg I&O - Last 24 Hours: Intake & Output 08/05/19 08/06/19 08/06/19 22:59 06:59 14:59 Intake Total 1250 300 Output Total 550 750 Balance 700 -450 Lab Results Last 24 Hours: Laboratory Results - last 24 hr 08/05/19 08/05/19 08/05/19 Range/Units 05:10 05:10 11:12 WBC (4.0-11.0) K/uL RBC (4.30-5.90) M/uL Hgb (12.0-16.0) g/dL Hct (36.0-46.0) % MCV (80.0-98.0) fL MCH (27.0-32.0) pg MCHC (31.0-37.0) g/dL RDW Std Deviation (28.0-62.0) fl RDW Coeff of Shaq (11.0-15.0) % Plt Count (150-400) K/uL MPV (7.40-12.00) fL Add Manual Diff Neutrophils % (Manual) (48.0-80.0) % Band Neutrophils % % Lymphocytes % (Manual) (16.0-40.0) % Monocytes % (Manual) (0.0-15.0) % Eosinophils % (Manual) (0.0-7.0) % Basophils % (Manual) (0.0-1.5) % Absolute Seg Neuts (1.4-5.7) Band Neutrophils # Lymphocytes # (Manual) (0.6-2.4) Monocytes # (Manual) (0.0-0.8) Eosinophils # (Manual) (0.0-0.7) Basophils # (Manual) (0.0-0.1) Sodium (136-145) mmol/L Potassium (3.5-5.1) mmol/L Chloride (98-107) mmol/L Carbon Dioxide (21.0-32.0) mmol/L BUN (7.0-18.0) mg/dL Creatinine (0.6-1.0) mg/dL Est Cr Clr Drug Dosing mL/min Estimated GFR (MDRD) ml/min Glucose (74-106) mg/dL POC Glucose 131 H (60-110) mg/dL Hemoglobin A1c 5.7 (4.5-6.2) % Calcium (8.5-10.1) mg/dL Magnesium (1.8-2.4) mg/dL Iron (50-175) ug/dL TIBC (250-450) ug/dL % Saturation (20-55) % Ferritin (8-252) ng/mL Total Bilirubin (0.2-1.0) mg/dL AST (15-37) IU/L ALT (14-63) IU/L Alkaline Phosphatase (46-116) U/L Total Protein (6.4-8.2) g/dL Albumin (3.4-5.0) g/dL Globulin (2.6-4.0) g/dL Albumin/Globulin Ratio (0.9-1.6) Vitamin B12 627 (193-986) pg/mL Folate 13.00 (8.60-58.90) ng/mL 08/05/19 08/06/19 08/06/19 Range/Units 16:33 05:39 05:39 WBC 8.33 (4.0-11.0) K/uL RBC 2.99 L (4.30-5.90) M/uL Hgb 8.5 L (12.0-16.0) g/dL Hct 26.9 L (36.0-46.0) % MCV 90.0 (80.0-98.0) fL MCH 28.4 (27.0-32.0) pg MCHC 31.6 (31.0-37.0) g/dL RDW Std Deviation 51.7 (28.0-62.0) fl RDW Coeff of Shaq 16 H (11.0-15.0) % Plt Count 385 (150-400) K/uL MPV 9.60 (7.40-12.00) fL Add Manual Diff YES Neutrophils % (Manual) 63 (48.0-80.0) % Band Neutrophils % 2 % Lymphocytes % (Manual) 20 (16.0-40.0) % Monocytes % (Manual) 10 (0.0-15.0) % Eosinophils % (Manual) 4 (0.0-7.0) % Basophils % (Manual) 1 (0.0-1.5) % Absolute Seg Neuts 5.2 (1.4-5.7) Band Neutrophils # 0.2 Lymphocytes # (Manual) 1.7 (0.6-2.4) Monocytes # (Manual) 0.8 (0.0-0.8) Eosinophils # (Manual) 0.3 (0.0-0.7) Basophils # (Manual) 0.1 (0.0-0.1) Sodium 144 (136-145) mmol/L Potassium 3.0 L (3.5-5.1) mmol/L Chloride 108 H (98-107) mmol/L Carbon Dioxide 29.8 (21.0-32.0) mmol/L BUN 8 (7.0-18.0) mg/dL Creatinine 0.6 (0.6-1.0) mg/dL Est Cr Clr Drug Dosing 99.96 mL/min Estimated GFR (MDRD) > 60.0 ml/min Glucose 85 (74-106) mg/dL POC Glucose 98 (60-110) mg/dL Hemoglobin A1c (4.5-6.2) % Calcium 7.9 L (8.5-10.1) mg/dL Magnesium (1.8-2.4) mg/dL Iron (50-175) ug/dL TIBC (250-450) ug/dL % Saturation (20-55) % Ferritin (8-252) ng/mL Total Bilirubin 0.2 (0.2-1.0) mg/dL AST 13 L (15-37) IU/L ALT 13 L (14-63) IU/L Alkaline Phosphatase 60 (46-116) U/L Total Protein 6.0 L (6.4-8.2) g/dL Albumin 2.0 L (3.4-5.0) g/dL Globulin 4.0 (2.6-4.0) g/dL Albumin/Globulin Ratio 0.5 L (0.9-1.6) Vitamin B12 (193-986) pg/mL Folate (8.60-58.90) ng/mL 08/06/19 08/06/19 08/06/19 Range/Units 05:39 05:39 06:20 WBC (4.0-11.0) K/uL RBC (4.30-5.90) M/uL Hgb (12.0-16.0) g/dL Hct (36.0-46.0) % MCV (80.0-98.0) fL MCH (27.0-32.0) pg MCHC (31.0-37.0) g/dL RDW Std Deviation (28.0-62.0) fl RDW Coeff of Shaq (11.0-15.0) % Plt Count (150-400) K/uL MPV (7.40-12.00) fL Add Manual Diff Neutrophils % (Manual) (48.0-80.0) % Band Neutrophils % % Lymphocytes % (Manual) (16.0-40.0) % Monocytes % (Manual) (0.0-15.0) % Eosinophils % (Manual) (0.0-7.0) % Basophils % (Manual) (0.0-1.5) % Absolute Seg Neuts (1.4-5.7) Band Neutrophils # Lymphocytes # (Manual) (0.6-2.4) Monocytes # (Manual) (0.0-0.8) Eosinophils # (Manual) (0.0-0.7) Basophils # (Manual) (0.0-0.1) Sodium (136-145) mmol/L Potassium (3.5-5.1) mmol/L Chloride (98-107) mmol/L Carbon Dioxide (21.0-32.0) mmol/L BUN (7.0-18.0) mg/dL Creatinine (0.6-1.0) mg/dL Est Cr Clr Drug Dosing mL/min Estimated GFR (MDRD) ml/min Glucose (74-106) mg/dL POC Glucose 65 (60-110) mg/dL Hemoglobin A1c (4.5-6.2) % Calcium (8.5-10.1) mg/dL Magnesium 1.7 L (1.8-2.4) mg/dL Iron 30 L (50-175) ug/dL TIBC 144 L (250-450) ug/dL % Saturation 20.83 (20-55) % Ferritin 196 (8-252) ng/mL Total Bilirubin (0.2-1.0) mg/dL AST (15-37) IU/L ALT (14-63) IU/L Alkaline Phosphatase (46-116) U/L Total Protein (6.4-8.2) g/dL Albumin (3.4-5.0) g/dL Globulin (2.6-4.0) g/dL Albumin/Globulin Ratio (0.9-1.6) Vitamin B12 (193-986) pg/mL Folate (8.60-58.90) ng/mL 08/06/19 Range/Units 07:18 WBC (4.0-11.0) K/uL RBC (4.30-5.90) M/uL Hgb (12.0-16.0) g/dL Hct (36.0-46.0) % MCV (80.0-98.0) fL MCH (27.0-32.0) pg MCHC (31.0-37.0) g/dL RDW Std Deviation (28.0-62.0) fl RDW Coeff of Shaq (11.0-15.0) % Plt Count (150-400) K/uL MPV (7.40-12.00) fL Add Manual Diff Neutrophils % (Manual) (48.0-80.0) % Band Neutrophils % % Lymphocytes % (Manual) (16.0-40.0) % Monocytes % (Manual) (0.0-15.0) % Eosinophils % (Manual) (0.0-7.0) % Basophils % (Manual) (0.0-1.5) % Absolute Seg Neuts (1.4-5.7) Band Neutrophils # Lymphocytes # (Manual) (0.6-2.4) Monocytes # (Manual) (0.0-0.8) Eosinophils # (Manual) (0.0-0.7) Basophils # (Manual) (0.0-0.1) Sodium (136-145) mmol/L Potassium (3.5-5.1) mmol/L Chloride (98-107) mmol/L Carbon Dioxide (21.0-32.0) mmol/L BUN (7.0-18.0) mg/dL Creatinine (0.6-1.0) mg/dL Est Cr Clr Drug Dosing mL/min Estimated GFR (MDRD) ml/min Glucose (74-106) mg/dL POC Glucose 80 (60-110) mg/dL Hemoglobin A1c (4.5-6.2) % Calcium (8.5-10.1) mg/dL Magnesium (1.8-2.4) mg/dL Iron (50-175) ug/dL TIBC (250-450) ug/dL % Saturation (20-55) % Ferritin (8-252) ng/mL Total Bilirubin (0.2-1.0) mg/dL AST (15-37) IU/L ALT (14-63) IU/L Alkaline Phosphatase (46-116) U/L Total Protein (6.4-8.2) g/dL Albumin (3.4-5.0) g/dL Globulin (2.6-4.0) g/dL Albumin/Globulin Ratio (0.9-1.6) Vitamin B12 (193-986) pg/mL Folate (8.60-58.90) ng/mL Yair Results Last 24 Hours: Microbiology 08/04/19 15:40 Campylobacter Antigen Assay - Final Stool / Feces NEGATIVE CAMPYLOBACTER AG REFERENCE RANGE: NEGATIVE Shiga Toxin I - Final NEGATIVE FOR SHIGA TOXIN 1 REFERENCE RANGE: NEGATIVE Shiga Toxin II - Final NEGATIVE FOR SHIGA TOXIN 2 REFERENCE RANGE: NEGATIVE C. difficile Antigen & Toxins A,B - Final 08/04/19 10:51 Aerobic Blood Culture - Preliminary Blood - Venous - Lab Draw NO GROWTH AFTER 1 DAY Anaerobic Blood Culture - Preliminary NO GROWTH AFTER 1 DAY 08/04/19 10:20 Aerobic Blood Culture - Preliminary Blood - Venous NO GROWTH AFTER 1 DAY Anaerobic Blood Culture - Preliminary NO GROWTH AFTER 1 DAY Med Orders - Current: Current Medications Acetaminophen (Tylenol) 650 mg PO Q4H PRN PRN Reason: Pain (Mild 1-3)/fever Albuterol/Ipratropium (Duoneb 3.0-0.5 Mg/3 Ml) 3 ml NEB Q4H PRN PRN Reason: Shortness of Breath Last Admin: 08/06/19 02:12 Dose: 3 ml Alprazolam (Xanax) 2 mg PO TID PRN PRN Reason: Anxiety Last Admin: 08/05/19 21:19 Dose: 2 mg Bisacodyl (Dulcolax) 5 mg PO DAILY PRN PRN Reason: Constipation Budesonide (Pulmicort) 0.5 mg INH BEDTIME [facility] Last Admin: 08/05/19 21:44 Dose: 0.5 mg Buspirone HCl (Buspar) 15 mg PO BID [facility] Last Admin: 08/05/19 21:20 Dose: 15 mg Enoxaparin Sodium (Lovenox) 40 mg SUBCUT Q24H [facility] Last Admin: 08/05/19 15:03 Dose: 40 mg Piperacillin Sod/Tazobactam (Sod 3.375 gm/ Sodium Chloride) 50 mls @ 100 mls/ hr IV Q6H [facility] Last Admin: 08/06/19 03:48 Dose: 100 mls/hr Insulin Aspart (Novolog) 0 unit SUBCUT TIDAC [facility]; Protocol Last Admin: 08/06/19 07:46 Dose: Not Given Ondansetron HCl (Zofran Odt) 4 mg PO Q4H PRN PRN Reason: nausea, able to take PO Ondansetron HCl (Zofran) 4 mg IVPUSH Q4H PRN PRN Reason: Nausea Oxycodone HCl (Oxycodone) 10 mg PO Q6H PRN PRN Reason: Pain (moderate 4-6) Polyethylene Glycol (Miralax) 17 gm PO DAILY PRN PRN Reason: Constipation Potassium Chloride (Klor-Con M20) 40 meq PO Q4H [facility] Stop: 08/06/19 11:16 Last Admin: 08/06/19 07:58 Dose: 40 meq Discontinued Medications Albuterol/Ipratropium (Duoneb 3.0-0.5 Mg/3 Ml) 3 ml NEB ONETIME ONE Stop: 08/04/19 10:20 Last Admin: 08/04/19 10:25 Dose: 3 ml Albuterol/Ipratropium (Duoneb 3.0-0.5 Mg/3 Ml) 3 ml NEB Q6H PRN PRN Reason: Shortness of Breath Sodium Chloride (Normal Saline) 1,000 mls @ 500 mls/hr IV STAT ONE Stop: 08/04/19 12:28 Last Admin: 08/04/19 10:37 Dose: 500 mls/hr Piperacillin Sod/Tazobactam (Sod 3.375 gm/ Sodium Chloride) 50 mls @ 100 mls/ hr IV ONETIME ONE Stop: 08/04/19 14:09 Last Admin: 08/04/19 13:59 Dose: 100 mls/hr Piperacillin Sod/Tazobactam (Sod 3.375 gm/ Sodium Chloride) 50 mls @ 100 mls/ hr IV Q8H [facility] Last Admin: 08/05/19 03:30 Dose: 100 mls/hr Lactated Ringer's (Ringers, Lactated) 1,000 mls @ 100 mls/hr IV ASDIRECTED [facility] Stop: 08/06/19 00:59 Last Admin: 08/05/19 01:13 Dose: 100 mls/hr Iron Sucrose 100 mg/ Sodium (Chloride) 105 mls @ 400 mls/hr IV ONETIME ONE Stop: 08/06/19 07:25 Last Admin: 08/06/19 07:57 Dose: 400 mls/hr Iopamidol (Isovue Multipack-370 (76%)) 80 ml IVPUSH ONETIME STA Stop: 08/04/19 13:01 Last Admin: 08/04/19 13:01 Dose: 80 ml Methylprednisolone Sodium Succinate (Solu-Medrol) 125 mg IVPUSH ONETIME ONE Stop: 08/04/19 10:26 Last Admin: 08/04/19 10:42 Dose: 125 mg Morphine Sulfate (Morphine) 2 mg IVPUSH ONETIME ONE Stop: 08/04/19 13:51 Last Admin: 08/04/19 13:55 Dose: 2 mg Morphine Sulfate (Morphine) 2 mg IVPUSH Q2H PRN PRN Reason: Pain (severe 7-10) Stop: 08/05/19 14:29 Last Admin: 08/05/19 08:47 Dose: 2 mg Morphine Sulfate (Morphine) 2 mg IVPUSH Q2H PRN PRN Reason: Pain (severe 7-10) Last Admin: 08/06/19 07:59 Dose: 2 mg Oxycodone HCl (Oxycodone) 5 mg PO Q4H PRN PRN Reason: Pain (moderate 4-6) Last Admin: 08/05/19 21:23 Dose: 5 mg Potassium Chloride (Klor-Con M20) 40 meq PO ONETIME ONE Stop: 08/04/19 17:05 Last Admin: 08/04/19 17:18 Dose: 40 meq - Exam General: Alert, Oriented, Cooperative HEENT: Pupils Equal, Pupils Reactive Lungs: Normal Respiratory Effort Cardiovascular: Regular Rate GI/Abdominal Exam: Soft, Non-Tender, No Distention, No Mass, Other (Ostomy is pink and healthy. Good stool and gas output. Able to easily palate through the fascia via the stoma. ) Consult PN Assessment/Plan Procedures: Procedures AIRWAY INHALATION TREATMENT (11/07/18) ANTINUCLEAR ANTIBODIES (10/25/16) ASSAY OF AMYLASE (07/14/17) ASSAY OF LACTIC ACID (05/29/18) ASSAY OF LIPASE (07/11/19) ASSAY OF TROPONIN QUANT (05/29/18) BLOOD CULTURE FOR BACTERIA (07/11/19) BLOOD GASES ANY COMBINATION (11/07/18) COMPLETE CBC W/AUTO DIFF WBC (07/11/19) COMPREHEN METABOLIC PANEL (07/11/19) CONTRAST X-RAY EXAM OF COLON (11/11/17) CT ABD & PELVIS W/O CONTRAST (07/11/19) CULTURE AEROBIC IDENTIFY (11/07/18) CULTURE OTHR SPECIMN AEROBIC (11/07/18) ECHO EXAM OF ABDOMEN (10/10/17) ELECTROCARDIOGRAM TRACING (05/29/18) EMERGENCY DEPT VISIT (07/11/19) EMERGENCY DEPT VISIT (05/29/18) GLUCOSE BLOOD TEST (05/29/18) HEPATITIS C AB TEST (03/04/19) HYDRATE IV INFUSION ADD-ON (07/11/19) IIV4 VACC NO PRSV 0.5 ML IM (05/29/18) INFLUENZA ASSAY W/OPTIC (11/07/18) LIPID PANEL (05/31/19) METABOLIC PANEL TOTAL CA (05/29/18) MICROBE SUSCEPTIBLE YAIR (11/07/18) PPSV23 VACC 2 YRS+ SUBQ/IM (05/29/18) RBC SED RATE AUTOMATED (10/25/16) RHEUMATOID FACTOR TEST QUAL (10/25/16) ROUTINE VENIPUNCTURE (07/11/19) SMEAR GRAM STAIN (11/07/18) THER/PROPH/DIAG INJ IV PUSH (11/07/18) THER/PROPH/DIAG INJ SC/IM (05/29/18) THER/PROPH/DIAG IV INF ADDON (05/29/18) THER/PROPH/DIAG IV INF INIT (07/11/19) TX/PRO/DX INJ NEW DRUG ADDON (07/11/19) TX/PRO/DX INJ SAME DRUG 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 Ileus is resolving. No need for antibiotics since no WBC and no evidence of infectious process on remainder of workup. The CT scan showed questionable liver abscesses but there is no evidence of infection. I feel her symptoms were secondary to ileus and the results of that. Can follow up with her primary surgeon as previously scheduled. Call with any questions or concerns.
[2019-08-06] MEDS: ALPRAZolam 0.5 MG Tab PO PRN (10:39)
[2019-08-06 12:32] LABS: BLOOD UREA NITROGEN,BUN 7 mg/dL (7.0-18.0); CARBON DIOXIDE,CO2 31.5 mmol/L (21.0-32.0); CHLORIDE,CL 105 mmol/L (98-107); GLUCOSE RANDOM 105 mg/dL (74-106); POTASSIUM,K 3.4 mmol/L (3.5-5.1); SODIUM,NA 143 mmol/L (136-145)
[2019-08-06] MEDS ORDERED: Magnesium Sulfate/Water 2 GM in Premix Bag 1 BAG IV ONE (15:03)
[2019-08-06] MEDS ORDERED: Potassium Chloride 10% 20 MEQ/15 ML Soln 30 ML UD Cup PO ONE (15:04)
--- NOTE | 2019-08-06 15:05 | PCM.PN ---
- Patient Data Vitals - Most Recent: Last Vital Signs Temp 36.8 C 08/06/19 13:00 Pulse 109 H 08/06/19 13:00 Resp 20 08/06/19 13:00 BP 126/82 08/06/19 13:00 Pulse Ox 97 08/06/19 13:00 Weight - Most Recent: 63.503 kg I&O - Last 24 Hours: Intake & Output 08/06/19 08/06/19 08/06/19 06:59 14:59 22:59 Intake Total 300 Output Total 750 Balance -450 Lab Results Last 24 Hours: Laboratory Results - last 24 hr 08/05/19 08/05/19 08/05/19 Range/Units 05:10 05:10 16:33 WBC (4.0-11.0) K/uL RBC (4.30-5.90) M/uL Hgb (12.0-16.0) g/dL Hct (36.0-46.0) % MCV (80.0-98.0) fL MCH (27.0-32.0) pg MCHC (31.0-37.0) g/dL RDW Std Deviation (28.0-62.0) fl RDW Coeff of Shaq (11.0-15.0) % Plt Count (150-400) K/uL MPV (7.40-12.00) fL Add Manual Diff Neutrophils % (Manual) (48.0-80.0) % Band Neutrophils % % Lymphocytes % (Manual) (16.0-40.0) % Monocytes % (Manual) (0.0-15.0) % Eosinophils % (Manual) (0.0-7.0) % Basophils % (Manual) (0.0-1.5) % Absolute Seg Neuts (1.4-5.7) Band Neutrophils # Lymphocytes # (Manual) (0.6-2.4) Monocytes # (Manual) (0.0-0.8) Eosinophils # (Manual) (0.0-0.7) Basophils # (Manual) (0.0-0.1) Sodium (136-145) mmol/L Potassium (3.5-5.1) mmol/L Chloride (98-107) mmol/L Carbon Dioxide (21.0-32.0) mmol/L BUN (7.0-18.0) mg/dL Creatinine (0.6-1.0) mg/dL Est Cr Clr Drug Dosing mL/min Estimated GFR (MDRD) ml/min Glucose (74-106) mg/dL POC Glucose 98 (60-110) mg/dL Hemoglobin A1c 5.7 (4.5-6.2) % Calcium (8.5-10.1) mg/dL Magnesium (1.8-2.4) mg/dL Iron (50-175) ug/dL TIBC (250-450) ug/dL % Saturation (20-55) % Ferritin (8-252) ng/mL Total Bilirubin (0.2-1.0) mg/dL AST (15-37) IU/L ALT (14-63) IU/L Alkaline Phosphatase (46-116) U/L Total Protein (6.4-8.2) g/dL Albumin (3.4-5.0) g/dL Globulin (2.6-4.0) g/dL Albumin/Globulin Ratio (0.9-1.6) Vitamin B12 627 (193-986) pg/mL Folate 13.00 (8.60-58.90) ng/mL 08/06/19 08/06/19 08/06/19 Range/Units 05:39 05:39 05:39 WBC 8.33 (4.0-11.0) K/uL RBC 2.99 L (4.30-5.90) M/uL Hgb 8.5 L (12.0-16.0) g/dL Hct 26.9 L (36.0-46.0) % MCV 90.0 (80.0-98.0) fL MCH 28.4 (27.0-32.0) pg MCHC 31.6 (31.0-37.0) g/dL RDW Std Deviation 51.7 (28.0-62.0) fl RDW Coeff of Shaq 16 H (11.0-15.0) % Plt Count 385 (150-400) K/uL MPV 9.60 (7.40-12.00) fL Add Manual Diff YES Neutrophils % (Manual) 63 (48.0-80.0) % Band Neutrophils % 2 % Lymphocytes % (Manual) 20 (16.0-40.0) % Monocytes % (Manual) 10 (0.0-15.0) % Eosinophils % (Manual) 4 (0.0-7.0) % Basophils % (Manual) 1 (0.0-1.5) % Absolute Seg Neuts 5.2 (1.4-5.7) Band Neutrophils # 0.2 Lymphocytes # (Manual) 1.7 (0.6-2.4) Monocytes # (Manual) 0.8 (0.0-0.8) Eosinophils # (Manual) 0.3 (0.0-0.7) Basophils # (Manual) 0.1 (0.0-0.1) Sodium 144 (136-145) mmol/L Potassium 3.0 L (3.5-5.1) mmol/L Chloride 108 H (98-107) mmol/L Carbon Dioxide 29.8 (21.0-32.0) mmol/L BUN 8 (7.0-18.0) mg/dL Creatinine 0.6 (0.6-1.0) mg/dL Est Cr Clr Drug Dosing 99.96 mL/min Estimated GFR (MDRD) > 60.0 ml/min Glucose 85 (74-106) mg/dL POC Glucose (60-110) mg/dL Hemoglobin A1c (4.5-6.2) % Calcium 7.9 L (8.5-10.1) mg/dL Magnesium (1.8-2.4) mg/dL Iron 30 L (50-175) ug/dL TIBC 144 L (250-450) ug/dL % Saturation 20.83 (20-55) % Ferritin 196 (8-252) ng/mL Total Bilirubin 0.2 (0.2-1.0) mg/dL AST 13 L (15-37) IU/L ALT 13 L (14-63) IU/L Alkaline Phosphatase 60 (46-116) U/L Total Protein 6.0 L (6.4-8.2) g/dL Albumin 2.0 L (3.4-5.0) g/dL Globulin 4.0 (2.6-4.0) g/dL Albumin/Globulin Ratio 0.5 L (0.9-1.6) Vitamin B12 (193-986) pg/mL Folate (8.60-58.90) ng/mL 1108/06/19 08/06/19 Range/Units 05:39 06:20 07:18 WBC (4.0-11.0) K/uL RBC (4.30-5.90) M/uL Hgb (12.0-16.0) g/dL Hct (36.0-46.0) % MCV (80.0-98.0) fL MCH (27.0-32.0) pg MCHC (31.0-37.0) g/dL RDW Std Deviation (28.0-62.0) fl RDW Coeff of Shaq (11.0-15.0) % Plt Count (150-400) K/uL MPV (7.40-12.00) fL Add Manual Diff Neutrophils % (Manual) (48.0-80.0) % Band Neutrophils % % Lymphocytes % (Manual) (16.0-40.0) % Monocytes % (Manual) (0.0-15.0) % Eosinophils % (Manual) (0.0-7.0) % Basophils % (Manual) (0.0-1.5) % Absolute Seg Neuts (1.4-5.7) Band Neutrophils # Lymphocytes # (Manual) (0.6-2.4) Monocytes # (Manual) (0.0-0.8) Eosinophils # (Manual) (0.0-0.7) Basophils # (Manual) (0.0-0.1) Sodium (136-145) mmol/L Potassium (3.5-5.1) mmol/L Chloride (98-107) mmol/L Carbon Dioxide (21.0-32.0) mmol/L BUN (7.0-18.0) mg/dL Creatinine (0.6-1.0) mg/dL Est Cr Clr Drug Dosing mL/min Estimated GFR (MDRD) ml/min Glucose (74-106) mg/dL POC Glucose 65 80 (60-110) mg/dL Hemoglobin A1c (4.5-6.2) % Calcium (8.5-10.1) mg/dL Magnesium 1.7 L (1.8-2.4) mg/dL Iron (50-175) ug/dL TIBC (250-450) ug/dL % Saturation (20-55) % Ferritin (8-252) ng/mL Total Bilirubin (0.2-1.0) mg/dL AST (15-37) IU/L ALT (14-63) IU/L Alkaline Phosphatase (46-116) U/L Total Protein (6.4-8.2) g/dL Albumin (3.4-5.0) g/dL Globulin (2.6-4.0) g/dL Albumin/Globulin Ratio (0.9-1.6) Vitamin B12 (193-986) pg/mL Folate (8.60-58.90) ng/mL 08/06/19 08/06/19 Range/Units 11:41 11:55 WBC (4.0-11.0) K/uL RBC (4.30-5.90) M/uL Hgb (12.0-16.0) g/dL Hct (36.0-46.0) % MCV (80.0-98.0) fL MCH (27.0-32.0) pg MCHC (31.0-37.0) g/dL RDW Std Deviation (28.0-62.0) fl RDW Coeff of Shaq (11.0-15.0) % Plt Count (150-400) K/uL MPV (7.40-12.00) fL Add Manual Diff Neutrophils % (Manual) (48.0-80.0) % Band Neutrophils % % Lymphocytes % (Manual) (16.0-40.0) % Monocytes % (Manual) (0.0-15.0) % Eosinophils % (Manual) (0.0-7.0) % Basophils % (Manual) (0.0-1.5) % Absolute Seg Neuts (1.4-5.7) Band Neutrophils # Lymphocytes # (Manual) (0.6-2.4) Monocytes # (Manual) (0.0-0.8) Eosinophils # (Manual) (0.0-0.7) Basophils # (Manual) (0.0-0.1) Sodium 143 (136-145) mmol/L Potassium 3.4 L (3.5-5.1) mmol/L Chloride 105 (98-107) mmol/L Carbon Dioxide 31.5 (21.0-32.0) mmol/L BUN 7 (7.0-18.0) mg/dL Creatinine 0.6 (0.6-1.0) mg/dL Est Cr Clr Drug Dosing 99.96 mL/min Estimated GFR (MDRD) > 60.0 ml/min Glucose 105 (74-106) mg/dL POC Glucose 87 (60-110) mg/dL Hemoglobin A1c (4.5-6.2) % Calcium 8.3 L (8.5-10.1) mg/dL Magnesium 1.7 L (1.8-2.4) mg/dL Iron (50-175) ug/dL TIBC (250-450) ug/dL % Saturation (20-55) % Ferritin (8-252) ng/mL Total Bilirubin (0.2-1.0) mg/dL AST (15-37) IU/L ALT (14-63) IU/L Alkaline Phosphatase (46-116) U/L Total Protein (6.4-8.2) g/dL Albumin (3.4-5.0) g/dL Globulin (2.6-4.0) g/dL Albumin/Globulin Ratio (0.9-1.6) Vitamin B12 (193-986) pg/mL Folate (8.60-58.90) ng/mL Yair Results Last 24 Hours: Microbiology 08/04/19 10:51 Aerobic Blood Culture - Preliminary Blood - Venous - Lab Draw NO GROWTH AFTER 2 DAYS Anaerobic Blood Culture - Preliminary NO GROWTH AFTER 2 DAYS 08/04/19 10:20 Aerobic Blood Culture - Preliminary Blood - Venous NO GROWTH AFTER 2 DAYS Anaerobic Blood Culture - Preliminary NO GROWTH AFTER 2 DAYS 08/04/19 15:40 Stool Culture - Final Stool / Feces NO SALMONELLA, SHIGELLA,OR E.COLI O157 ISOLATED Campylobacter Antigen Assay - Final NEGATIVE CAMPYLOBACTER AG REFERENCE RANGE: NEGATIVE Shiga Toxin I - Final NEGATIVE FOR SHIGA TOXIN 1 REFERENCE RANGE: NEGATIVE Shiga Toxin II - Final NEGATIVE FOR SHIGA TOXIN 2 REFERENCE RANGE: NEGATIVE C. difficile Antigen & Toxins A,B - Final Med Orders - Current: Current Medications Acetaminophen (Tylenol) 650 mg PO Q4H PRN PRN Reason: Pain (Mild 1-3)/fever Albuterol/Ipratropium (Duoneb 3.0-0.5 Mg/3 Ml) 3 ml NEB Q4H PRN PRN Reason: Shortness of Breath Last Admin: 08/06/19 14:38 Dose: 3 ml Alprazolam (Xanax) 2 mg PO TID PRN PRN Reason: Anxiety Last Admin: 08/06/19 10:39 Dose: 2 mg Bisacodyl (Dulcolax) 5 mg PO DAILY PRN PRN Reason: Constipation Budesonide (Pulmicort) 0.5 mg INH BEDTIME [facility] Last Admin: 08/05/19 21:44 Dose: 0.5 mg Buspirone HCl (Buspar) 15 mg PO BID [facility] Last Admin: 08/06/19 09:53 Dose: 15 mg Enoxaparin Sodium (Lovenox) 40 mg SUBCUT Q24H [facility] Last Admin: 08/05/19 15:03 Dose: 40 mg Piperacillin Sod/Tazobactam (Sod 3.375 gm/ Sodium Chloride) 50 mls @ 100 mls/ hr IV Q6H [facility] Last Admin: 08/06/19 09:55 Dose: 100 mls/hr Magnesium Sulfate 2 gm/ Premix 50 mls @ 25 mls/hr IV ONETIME ONE Stop: 08/06/19 17:02 Insulin Aspart (Novolog) 0 unit SUBCUT TIDAC [facility]; Protocol Last Admin: 08/06/19 11:44 Dose: Not Given Ondansetron HCl (Zofran Odt) 4 mg PO Q4H PRN PRN Reason: nausea, able to take PO Ondansetron HCl (Zofran) 4 mg IVPUSH Q4H PRN PRN Reason: Nausea Oxycodone HCl (Oxycodone) 10 mg PO Q6H PRN PRN Reason: Pain (moderate 4-6) Last Admin: 08/06/19 09:54 Dose: 10 mg Polyethylene Glycol (Miralax) 17 gm PO DAILY PRN PRN Reason: Constipation Discontinued Medications Albuterol/Ipratropium (Duoneb 3.0-0.5 Mg/3 Ml) 3 ml NEB ONETIME ONE Stop: 08/04/19 10:20 Last Admin: 08/04/19 10:25 Dose: 3 ml Albuterol/Ipratropium (Duoneb 3.0-0.5 Mg/3 Ml) 3 ml NEB Q6H PRN PRN Reason: Shortness of Breath Sodium Chloride (Normal Saline) 1,000 mls @ 500 mls/hr IV STAT ONE Stop: 08/04/19 12:28 Last Admin: 08/04/19 10:37 Dose: 500 mls/hr Piperacillin Sod/Tazobactam (Sod 3.375 gm/ Sodium Chloride) 50 mls @ 100 mls/ hr IV ONETIME ONE Stop: 08/04/19 14:09 Last Admin: 08/04/19 13:59 Dose: 100 mls/hr Piperacillin Sod/Tazobactam (Sod 3.375 gm/ Sodium Chloride) 50 mls @ 100 mls/ hr IV Q8H [facility] Last Admin: 08/05/19 03:30 Dose: 100 mls/hr Lactated Ringer's (Ringers, Lactated) 1,000 mls @ 100 mls/hr IV ASDIRECTED [facility] Stop: 08/06/19 00:59 Last Admin: 08/05/19 01:13 Dose: 100 mls/hr Iron Sucrose 100 mg/ Sodium (Chloride) 105 mls @ 400 mls/hr IV ONETIME ONE Stop: 08/06/19 07:25 Last Admin: 08/06/19 07:57 Dose: 400 mls/hr Iopamidol (Isovue Multipack-370 (76%)) 80 ml IVPUSH ONETIME STA Stop: 08/04/19 13:01 Last Admin: 08/04/19 13:01 Dose: 80 ml Methylprednisolone Sodium Succinate (Solu-Medrol) 125 mg IVPUSH ONETIME ONE Stop: 08/04/19 10:26 Last Admin: 08/04/19 10:42 Dose: 125 mg Morphine Sulfate (Morphine) 2 mg IVPUSH ONETIME ONE Stop: 08/04/19 13:51 Last Admin: 08/04/19 13:55 Dose: 2 mg Morphine Sulfate (Morphine) 2 mg IVPUSH Q2H PRN PRN Reason: Pain (severe 7-10) Stop: 08/05/19 14:29 Last Admin: 08/05/19 08:47 Dose: 2 mg Morphine Sulfate (Morphine) 2 mg IVPUSH Q2H PRN PRN Reason: Pain (severe 7-10) Last Admin: 08/06/19 07:59 Dose: 2 mg Oxycodone HCl (Oxycodone) 5 mg PO Q4H PRN PRN Reason: Pain (moderate 4-6) Last Admin: 08/05/19 21:23 Dose: 5 mg Potassium Chloride (Klor-Con M20) 40 meq PO ONETIME ONE Stop: 08/04/19 17:05 Last Admin: 08/04/19 17:18 Dose: 40 meq Potassium Chloride (Klor-Con M20) 40 meq PO Q4H [facility] Stop: 08/06/19 11:16 Last Admin: 08/06/19 11:52 Dose: 40 meq - My Orders Last 24 Hours: My Active Orders 08/06/19 07:15 Evaluate for Home Oxygen [RT Evaluate for Home Oxygen] [RC] Click to Edit 08/06/19 08:57 oxyCODONE 10 mg PO Q6H PRN 08/06/19 15:03 Magnesium Sulfate/Water [Magnesium Sulfate in Water Premix] 2 gm Premix Bag 1 bag IV ONETIME 08/06/19 15:04 Potassium Chloride 40 meq PO ONETIME ONE 08/07/19 05:11 CBC WITH AUTO DIFF [HEME] AM COMPREHENSIVE METABOLIC PN,CMP [CHEM] AM - Assessment Assessment:: A: 1. Post-surgical abdominal pain, improved 2. COPD exacerbation 3. Normocytic anemia P: 1. Abdominal pain is much improved. Having bowel movements which are more formed today. Stool studies negative. Pending blood culture results. Will continue with antibiotics for now until blood cultures are back. Duonebs PRN. Plan to discharge tomorrow on home health. - Plan Plan:: I have seen and examined patient, I have discussed the plan of care with the Resident. Agree with the residents note unless otherwise specified in my note. A/P: CT noted, possible small liver abscess. Will cont Zosyn f/u blood cultures Surgery recs appreciated Cont DuoNebs, hold steroids for now Monitor and replete electrolytes as needed Anemia, f/i Fe studies Dispo 2-3 days
[2019-08-06] MEDS: Enoxaparin 40 MG/0.4 ML Syringe SUBCUT SCH (15:13)
--- NOTE | 2019-08-06 16:49 | PCM.DCSUM1 ---
<Tree Trevino - Last Filed: 08/06/19 20:04> Discharge Summary - Hospital Course Free Text/Narrative:: 58 y/o female with history of COPD s/p colonostomy after bowel perforation. She presented to the ER complaining of fevers, worsening shortness of breath and abdominal pain. She was admitted for COPD exacerbation and suspicion for possible abdominal infection due to her recent surgeries. She was started on zosyn and CT abdomen/pelvis was done which showed small collections of fluid on the liver suspicious for small abscesses. Dr. Mac, General Surgery was consulted who evaluated the patient and reviewed imaging. She did not suspect abscesses. She recommended conservative management. During the course of the hospitalization, the patient improved. She did not have any fevers during her stay. Her abdominal pain was improved and she was having more formed stools. She was found to have iron deficiency anemia. She was given 1 dose of IV iron and started on iron tabs. She denied any blood in her stool. Blood cultures were negative and stool studies were also negative. The patient did require supplemental oxygen with exertion. She was discharged home on ciprofloxacin and flagyl for 7 days and home oxygen. In addition, she was advised to follow- up with her PCP and GI for iron deficiency anemia and possible endoscopy. - Discharge Data Discharge Date: 08/06/19 Discharge Disposition: Home, Self-Care 01 Condition: Fair - Referral to Home Health Primary Care Physician: Yaw Loza MD - Patient Summary/Data Consults: Consultations 08/04/19 14:03 Consult to Physician [CONS] Stat 08/05/19 07:50 Consult to Physical Therapy [PT Evaluation and Treatment] [CONS] Routine - Patient Instructions Diet: Regular Diet as Tolerated Activity: As Tolerated Notify Provider of: Fever, Increased Pain, Swelling and Redness, Drainage, Nausea and/or Vomiting - Discharge Plan Prescriptions/Med Rec: Budesonide/Formoterol Fumarate [Symbicort 160-4.5 Mcg Inhaler] 6 gm IH BID 30 Days #1 hfa.aer.ad Ciprofloxacin HCl [Cipro] 250 mg PO BID 7 Days #14 tablet Iron Polysaccharides Complex [Ferrex 150] 150 mg PO DAILY #30 cap metroNIDAZOLE [Metronidazole] 500 mg PO BID 7 Days #14 tablet Home Medications: Home Meds ALPRAZolam [Xanax] 2 mg PO TID PRN 05/29/18 [History] Albuterol/Ipratropium [Combivent Respimat] 1 puff IH QID PRN 05/29/18 [History] Budesonide [Pulmicort] 1 dose INH BEDTIME 11/04/18 [History] Fluticasone Propionate [Flonase] 0 puff NASBOTH DAILY 11/04/18 [History] busPIRone [Buspar] 15 mg PO BID 11/04/18 [History] predniSONE [Prednisone] 20 mg PO DAILY PRN 07/11/19 [History] Acetaminophen with Codeine [Tylenol with Codeine #3 Tablet] 1 each PO Q6H PRN [History] Ondansetron [Zofran ODT] 4 mg PO Q6H PRN 08/04/19 [History] Rosuvastatin [Crestor] 5 mg PO BEDTIME 08/04/19 [History] Budesonide/Formoterol Fumarate [Symbicort 160-4.5 Mcg Inhaler] 6 gm IH BID 30 Days #1 hfa.aer.ad 08/06/19 [Rx] Ciprofloxacin HCl [Cipro] 250 mg PO BID 7 Days #14 tablet 08/06/19 [Rx] Iron Polysaccharides Complex [Ferrex 150] 150 mg PO DAILY #30 cap 08/06/19 [Rx] metroNIDAZOLE [Metronidazole] 500 mg PO BID 7 Days #14 tablet 08/06/19 [Rx] Patient Handouts: Budesonide; Formoterol Inhalation, Chronic Obstructive Pulmonary Disease, [id number], Polysaccharide-Iron Complex tablets or capsules , Home Oxygen Use, Adult, Ciprofloxacin tablets, Metronidazole tablets or capsules Referrals: Yaw Loza MD [Primary Care Provider] - 08/25/19 9:30 am - Discharge Summary/Plan Comment DC Time >30 min.: No - Patient Data Vitals - Most Recent: Last Vital Signs Temp 36.8 C 08/06/19 13:00 Pulse 109 H 08/06/19 13:00 Resp 20 08/06/19 13:00 BP 126/82 08/06/19 13:00 Pulse Ox 97 08/06/19 13:00 Weight - Most Recent: 63.503 kg I&O - Last 24 hours: Intake & Output 11/15/19 11/15/19 11/15/19 06:59 14:59 22:59 Intake Total 300 Output Total 750 Balance -450 Lab Results - Last 24 hrs: Laboratory Results - last 24 hr 08/05/19 08/05/19 08/05/19 Range/Units 05:10 05:10 16:33 WBC (4.0-11.0) K/uL RBC (4.30-5.90) M/uL Hgb (12.0-16.0) g/dL Hct (36.0-46.0) % MCV (80.0-98.0) fL MCH (27.0-32.0) pg MCHC (31.0-37.0) g/dL RDW Std Deviation (28.0-62.0) fl RDW Coeff of Shaq (11.0-15.0) % Plt Count (150-400) K/uL MPV (7.40-12.00) fL Add Manual Diff Neutrophils % (Manual) (48.0-80.0) % Band Neutrophils % % Lymphocytes % (Manual) (16.0-40.0) % Monocytes % (Manual) (0.0-15.0) % Eosinophils % (Manual) (0.0-7.0) % Basophils % (Manual) (0.0-1.5) % Absolute Seg Neuts (1.4-5.7) Band Neutrophils # Lymphocytes # (Manual) (0.6-2.4) Monocytes # (Manual) (0.0-0.8) Eosinophils # (Manual) (0.0-0.7) Basophils # (Manual) (0.0-0.1) Sodium (136-145) mmol/L Potassium (3.5-5.1) mmol/L Chloride (98-107) mmol/L Carbon Dioxide (21.0-32.0) mmol/L BUN (7.0-18.0) mg/dL Creatinine (0.6-1.0) mg/dL Est Cr Clr Drug Dosing mL/min Estimated GFR (MDRD) ml/min Glucose (74-106) mg/dL POC Glucose 98 (60-110) mg/dL Hemoglobin A1c 5.7 (4.5-6.2) % Calcium (8.5-10.1) mg/dL Magnesium (1.8-2.4) mg/dL Iron (50-175) ug/dL TIBC (250-450) ug/dL % Saturation (20-55) % Ferritin (8-252) ng/mL Total Bilirubin (0.2-1.0) mg/dL AST (15-37) IU/L ALT (14-63) IU/L Alkaline Phosphatase (46-116) U/L Total Protein (6.4-8.2) g/dL Albumin (3.4-5.0) g/dL Globulin (2.6-4.0) g/dL Albumin/Globulin Ratio (0.9-1.6) Vitamin B12 627 (193-986) pg/mL Folate 13.00 (8.60-58.90) ng/mL 08/06/19 08/06/19 08/06/19 Range/Units 05:39 05:39 05:39 WBC 8.33 (4.0-11.0) K/uL RBC 2.99 L (4.30-5.90) M/uL Hgb 8.5 L (12.0-16.0) g/dL Hct 26.9 L (36.0-46.0) % MCV 90.0 (80.0-98.0) fL MCH 28.4 (27.0-32.0) pg MCHC 31.6 (31.0-37.0) g/dL RDW Std Deviation 51.7 (28.0-62.0) fl RDW Coeff of Shaq 16 H (11.0-15.0) % Plt Count 385 (150-400) K/uL MPV 9.60 (7.40-12.00) fL Add Manual Diff YES Neutrophils % (Manual) 63 (48.0-80.0) % Band Neutrophils % 2 % Lymphocytes % (Manual) 20 (16.0-40.0) % Monocytes % (Manual) 10 (0.0-15.0) % Eosinophils % (Manual) 4 (0.0-7.0) % Basophils % (Manual) 1 (0.0-1.5) % Absolute Seg Neuts 5.2 (1.4-5.7) Band Neutrophils # 0.2 Lymphocytes # (Manual) 1.7 (0.6-2.4) Monocytes # (Manual) 0.8 (0.0-0.8) Eosinophils # (Manual) 0.3 (0.0-0.7) Basophils # (Manual) 0.1 (0.0-0.1) Sodium 144 (136-145) mmol/L Potassium 3.0 L (3.5-5.1) mmol/L Chloride 108 H (98-107) mmol/L Carbon Dioxide 29.8 (21.0-32.0) mmol/L BUN 8 (7.0-18.0) mg/dL Creatinine 0.6 (0.6-1.0) mg/dL Est Cr Clr Drug Dosing 99.96 mL/min Estimated GFR (MDRD) > 60.0 ml/min Glucose 85 (74-106) mg/dL POC Glucose (60-110) mg/dL Hemoglobin A1c (4.5-6.2) % Calcium 7.9 L (8.5-10.1) mg/dL Magnesium (1.8-2.4) mg/dL Iron 30 L (50-175) ug/dL TIBC 144 L (250-450) ug/dL % Saturation 20.83 (20-55) % Ferritin 196 (8-252) ng/mL Total Bilirubin 0.2 (0.2-1.0) mg/dL AST 13 L (15-37) IU/L ALT 13 L (14-63) IU/L Alkaline Phosphatase 60 (46-116) U/L Total Protein 6.0 L (6.4-8.2) g/dL Albumin 2.0 L (3.4-5.0) g/dL Globulin 4.0 (2.6-4.0) g/dL Albumin/Globulin Ratio 0.5 L (0.9-1.6) Vitamin B12 (193-986) pg/mL Folate (8.60-58.90) ng/mL 08/06/19 08/06/19 08/06/19 Range/Units 05:39 06:20 07:18 WBC (4.0-11.0) K/uL RBC (4.30-5.90) M/uL Hgb (12.0-16.0) g/dL Hct (36.0-46.0) % MCV (80.0-98.0) fL MCH (27.0-32.0) pg MCHC (31.0-37.0) g/dL RDW Std Deviation (28.0-62.0) fl RDW Coeff of Shaq (11.0-15.0) % Plt Count (150-400) K/uL MPV (7.40-12.00) fL Add Manual Diff Neutrophils % (Manual) (48.0-80.0) % Band Neutrophils % % Lymphocytes % (Manual) (16.0-40.0) % Monocytes % (Manual) (0.0-15.0) % Eosinophils % (Manual) (0.0-7.0) % Basophils % (Manual) (0.0-1.5) % Absolute Seg Neuts (1.4-5.7) Band Neutrophils # Lymphocytes # (Manual) (0.6-2.4) Monocytes # (Manual) (0.0-0.8) Eosinophils # (Manual) (0.0-0.7) Basophils # (Manual) (0.0-0.1) Sodium (136-145) mmol/L Potassium (3.5-5.1) mmol/L Chloride (98-107) mmol/L Carbon Dioxide (21.0-32.0) mmol/L BUN (7.0-18.0) mg/dL Creatinine (0.6-1.0) mg/dL Est Cr Clr Drug Dosing mL/min Estimated GFR (MDRD) ml/min Glucose (74-106) mg/dL POC Glucose 65 80 (60-110) mg/dL Hemoglobin A1c (4.5-6.2) % Calcium (8.5-10.1) mg/dL Magnesium 1.7 L (1.8-2.4) mg/dL Iron (50-175) ug/dL TIBC (250-450) ug/dL % Saturation (20-55) % Ferritin (8-252) ng/mL Total Bilirubin (0.2-1.0) mg/dL AST (15-37) IU/L ALT (14-63) IU/L Alkaline Phosphatase (46-116) U/L Total Protein (6.4-8.2) g/dL Albumin (3.4-5.0) g/dL Globulin (2.6-4.0) g/dL Albumin/Globulin Ratio (0.9-1.6) Vitamin B12 (193-986) pg/mL Folate (8.60-58.90) ng/mL 08/06/19 08/06/19 Range/Units 11:41 11:55 WBC (4.0-11.0) K/uL RBC (4.30-5.90) M/uL Hgb (12.0-16.0) g/dL Hct (36.0-46.0) % MCV (80.0-98.0) fL MCH (27.0-32.0) pg MCHC (31.0-37.0) g/dL RDW Std Deviation (28.0-62.0) fl RDW Coeff of Shaq (11.0-15.0) % Plt Count (150-400) K/uL MPV (7.40-12.00) fL Add Manual Diff Neutrophils % (Manual) (48.0-80.0) % Band Neutrophils % % Lymphocytes % (Manual) (16.0-40.0) % Monocytes % (Manual) (0.0-15.0) % Eosinophils % (Manual) (0.0-7.0) % Basophils % (Manual) (0.0-1.5) % Absolute Seg Neuts (1.4-5.7) Band Neutrophils # Lymphocytes # (Manual) (0.6-2.4) Monocytes # (Manual) (0.0-0.8) Eosinophils # (Manual) (0.0-0.7) Basophils # (Manual) (0.0-0.1) Sodium 143 (136-145) mmol/L Potassium 3.4 L (3.5-5.1) mmol/L Chloride 105 (98-107) mmol/L Carbon Dioxide 31.5 (21.0-32.0) mmol/L BUN 7 (7.0-18.0) mg/dL Creatinine 0.6 (0.6-1.0) mg/dL Est Cr Clr Drug Dosing 99.96 mL/min Estimated GFR (MDRD) > 60.0 ml/min Glucose 105 (74-106) mg/dL POC Glucose 87 (60-110) mg/dL Hemoglobin A1c (4.5-6.2) % Calcium 8.3 L (8.5-10.1) mg/dL Magnesium 1.7 L (1.8-2.4) mg/dL Iron (50-175) ug/dL TIBC (250-450) ug/dL % Saturation (20-55) % Ferritin (8-252) ng/mL Total Bilirubin (0.2-1.0) mg/dL AST (15-37) IU/L ALT (14-63) IU/L Alkaline Phosphatase (46-116) U/L Total Protein (6.4-8.2) g/dL Albumin (3.4-5.0) g/dL Globulin (2.6-4.0) g/dL Albumin/Globulin Ratio (0.9-1.6) Vitamin B12 (193-986) pg/mL Folate (8.60-58.90) ng/mL JEFFRY Results - Last 24 hrs: Microbiology 08/04/19 10:51 Aerobic Blood Culture - Preliminary Blood - Venous - Lab Draw NO GROWTH AFTER 2 DAYS Anaerobic Blood Culture - Preliminary NO GROWTH AFTER 2 DAYS 08/04/19 10:20 Aerobic Blood Culture - Preliminary Blood - Venous NO GROWTH AFTER 2 DAYS Anaerobic Blood Culture - Preliminary NO GROWTH AFTER 2 DAYS 08/04/19 15:40 Stool Culture - Final Stool / Feces NO SALMONELLA, SHIGELLA,OR E.COLI O157 ISOLATED Campylobacter Antigen Assay - Final NEGATIVE CAMPYLOBACTER AG REFERENCE RANGE: NEGATIVE Shiga Toxin I - Final NEGATIVE FOR SHIGA TOXIN 1 REFERENCE RANGE: NEGATIVE Shiga Toxin II - Final NEGATIVE FOR SHIGA TOXIN 2 REFERENCE RANGE: NEGATIVE C. difficile Antigen & Toxins A,B - Final Med Orders - Current: Current Medications Acetaminophen (Tylenol) 650 mg PO Q4H PRN PRN Reason: Pain (Mild 1-3)/fever Albuterol/Ipratropium (Duoneb 3.0-0.5 Mg/3 Ml) 3 ml NEB Q4H PRN PRN Reason: Shortness of Breath Last Admin: 08/06/19 14:38 Dose: 3 ml Alprazolam (Xanax) 2 mg PO TID PRN PRN Reason: Anxiety Last Admin: 08/06/19 10:39 Dose: 2 mg Bisacodyl (Dulcolax) 5 mg PO DAILY PRN PRN Reason: Constipation Budesonide (Pulmicort) 0.5 mg INH BEDTIME [facility] Last Admin: 08/05/19 21:44 Dose: 0.5 mg Buspirone HCl (Buspar) 15 mg PO BID [facility] Last Admin: 08/06/19 09:53 Dose: 15 mg Enoxaparin Sodium (Lovenox) 40 mg SUBCUT Q24H [facility] Last Admin: 08/06/19 15:13 Dose: 40 mg Piperacillin Sod/Tazobactam (Sod 3.375 gm/ Sodium Chloride) 50 mls @ 100 mls/ hr IV Q6H [facility] Last Admin: 08/06/19 15:21 Dose: 100 mls/hr Magnesium Sulfate 2 gm/ Premix 50 mls @ 25 mls/hr IV ONETIME ONE Stop: 08/06/19 17:02 Last Admin: 08/06/19 15:14 Dose: 25 mls/hr Insulin Aspart (Novolog) 0 unit SUBCUT TIDAC [facility]; Protocol Last Admin: 08/06/19 11:44 Dose: Not Given Ondansetron HCl (Zofran Odt) 4 mg PO Q4H PRN PRN Reason: nausea, able to take PO Ondansetron HCl (Zofran) 4 mg IVPUSH Q4H PRN PRN Reason: Nausea Oxycodone HCl (Oxycodone) 10 mg PO Q6H PRN PRN Reason: Pain (moderate 4-6) Last Admin: 08/06/19 09:54 Dose: 10 mg Polyethylene Glycol (Miralax) 17 gm PO DAILY PRN PRN Reason: Constipation Discontinued Medications Albuterol/Ipratropium (Duoneb 3.0-0.5 Mg/3 Ml) 3 ml NEB ONETIME ONE Stop: 08/04/19 10:20 Last Admin: 08/04/19 10:25 Dose: 3 ml Albuterol/Ipratropium (Duoneb 3.0-0.5 Mg/3 Ml) 3 ml NEB Q6H PRN PRN Reason: Shortness of Breath Sodium Chloride (Normal Saline) 1,000 mls @ 500 mls/hr IV STAT ONE Stop: 08/04/19 12:28 Last Admin: 08/04/19 10:37 Dose: 500 mls/hr Piperacillin Sod/Tazobactam (Sod 3.375 gm/ Sodium Chloride) 50 mls @ 100 mls/ hr IV ONETIME ONE Stop: 08/04/19 14:09 Last Admin: 08/04/19 13:59 Dose: 100 mls/hr Piperacillin Sod/Tazobactam (Sod 3.375 gm/ Sodium Chloride) 50 mls @ 100 mls/ hr IV Q8H [facility] Last Admin: 08/05/19 03:30 Dose: 100 mls/hr Lactated Ringer's (Ringers, Lactated) 1,000 mls @ 100 mls/hr IV ASDIRECTED [facility] Stop: 08/06/19 00:59 Last Admin: 08/05/19 01:13 Dose: 100 mls/hr Iron Sucrose 100 mg/ Sodium (Chloride) 105 mls @ 400 mls/hr IV ONETIME ONE Stop: 08/06/19 07:25 Last Admin: 08/06/19 07:57 Dose: 400 mls/hr Iopamidol (Isovue Multipack-370 (76%)) 80 ml IVPUSH ONETIME STA Stop: 08/04/19 13:01 Last Admin: 08/04/19 13:01 Dose: 80 ml Methylprednisolone Sodium Succinate (Solu-Medrol) 125 mg IVPUSH ONETIME ONE Stop: 08/04/19 10:26 Last Admin: 08/04/19 10:42 Dose: 125 mg Morphine Sulfate (Morphine) 2 mg IVPUSH ONETIME ONE Stop: 08/04/19 13:51 Last Admin: 08/04/19 13:55 Dose: 2 mg Morphine Sulfate (Morphine) 2 mg IVPUSH Q2H PRN PRN Reason: Pain (severe 7-10) Stop: 08/05/19 14:29 Last Admin: 08/05/19 08:47 Dose: 2 mg Morphine Sulfate (Morphine) 2 mg IVPUSH Q2H PRN PRN Reason: Pain (severe 7-10) Last Admin: 08/06/19 07:59 Dose: 2 mg Oxycodone HCl (Oxycodone) 5 mg PO Q4H PRN PRN Reason: Pain (moderate 4-6) Last Admin: 08/05/19 21:23 Dose: 5 mg Potassium Chloride (Klor-Con M20) 40 meq PO ONETIME ONE Stop: 08/04/19 17:05 Last Admin: 08/04/19 17:18 Dose: 40 meq Potassium Chloride (Klor-Con M20) 40 meq PO Q4H [facility] Stop: 08/06/19 11:16 Last Admin: 08/06/19 11:52 Dose: 40 meq Potassium Chloride (Potassium Chloride) 40 meq PO ONETIME ONE Stop: 08/06/19 15:05 Last Admin: 08/06/19 15:14 Dose: 40 meq <Gabriele Faulkner - Last Filed: 08/07/19 21:49> Discharge Summary - Referral to Home Health Primary Care Physician: Yaw Loza MD - Patient Summary/Data Consults: Consultations 08/04/19 14:03 Consult to Physician [CONS] Stat 08/05/19 07:50 Consult to Physical Therapy [PT Evaluation and Treatment] [CONS] Routine - Discharge Summary/Plan Comment Discharge Summary/Plan Comment: I have seen and evaluated the patient and agree with the residents note unless specified in my note - Patient Data Vitals - Most Recent: Last Vital Signs Temp 36.8 C 08/06/19 13:00 Pulse 109 H 08/06/19 13:00 Resp 20 08/06/19 13:00 BP 126/82 08/06/19 13:00 Pulse Ox 97 08/06/19 13:00 JEFFRY Results - Last 24 hrs: Microbiology 08/04/19 10:51 Aerobic Blood Culture - Preliminary Blood - Venous - Lab Draw NO GROWTH AFTER 3 DAYS Anaerobic Blood Culture - Preliminary NO GROWTH AFTER 3 DAYS 08/04/19 10:20 Aerobic Blood Culture - Preliminary Blood - Venous NO GROWTH AFTER 3 DAYS Anaerobic Blood Culture - Preliminary NO GROWTH AFTER 3 DAYS Med Orders - Current: Current Medications Discontinued Medications Acetaminophen (Tylenol) 650 mg PO Q4H PRN PRN Reason: Pain (Mild 1-3)/fever Albuterol/Ipratropium (Duoneb 3.0-0.5 Mg/3 Ml) 3 ml NEB ONETIME ONE Stop: 08/04/19 10:20 Last Admin: 08/04/19 10:25 Dose: 3 ml Albuterol/Ipratropium (Duoneb 3.0-0.5 Mg/3 Ml) 3 ml NEB Q6H PRN PRN Reason: Shortness of Breath Albuterol/Ipratropium (Duoneb 3.0-0.5 Mg/3 Ml) 3 ml NEB Q4H PRN PRN Reason: Shortness of Breath Last Admin: 08/06/19 14:38 Dose: 3 ml Alprazolam (Xanax) 2 mg PO TID PRN PRN Reason: Anxiety Last Admin: 08/06/19 10:39 Dose: 2 mg Bisacodyl (Dulcolax) 5 mg PO DAILY PRN PRN Reason: Constipation Budesonide (Pulmicort) 0.5 mg INH BEDTIME [facility] Last Admin: 08/05/19 21:44 Dose: 0.5 mg Buspirone HCl (Buspar) 15 mg PO BID [facility] Last Admin: 08/06/19 09:53 Dose: 15 mg Enoxaparin Sodium (Lovenox) 40 mg SUBCUT Q24H [facility] Last Admin: 08/06/19 15:13 Dose: 40 mg Sodium Chloride (Normal Saline) 1,000 mls @ 500 mls/hr IV STAT ONE Stop: 08/04/19 12:28 Last Admin: 08/04/19 10:37 Dose: 500 mls/hr Piperacillin Sod/Tazobactam (Sod 3.375 gm/ Sodium Chloride) 50 mls @ 100 mls/ hr IV ONETIME ONE Stop: 08/04/19 14:09 Last Admin: 08/04/19 13:59 Dose: 100 mls/hr Piperacillin Sod/Tazobactam (Sod 3.375 gm/ Sodium Chloride) 50 mls @ 100 mls/ hr IV Q8H [facility] Last Admin: 08/05/19 03:30 Dose: 100 mls/hr Lactated Ringer's (Ringers, Lactated) 1,000 mls @ 100 mls/hr IV ASDIRECTED [facility] Stop: 08/06/19 00:59 Last Admin: 08/05/19 01:13 Dose: 100 mls/hr Piperacillin Sod/Tazobactam (Sod 3.375 gm/ Sodium Chloride) 50 mls @ 100 mls/ hr IV Q6H [facility] Last Admin: 08/06/19 15:21 Dose: 100 mls/hr Iron Sucrose 100 mg/ Sodium (Chloride) 105 mls @ 400 mls/hr IV ONETIME ONE Stop: 08/06/19 07:25 Last Admin: 08/06/19 07:57 Dose: 400 mls/hr Magnesium Sulfate 2 gm/ Premix 50 mls @ 25 mls/hr IV ONETIME ONE Stop: 08/06/19 17:02 Last Admin: 08/06/19 15:14 Dose: 25 mls/hr Insulin Aspart (Novolog) 0 unit SUBCUT TIDAC [facility]; Protocol Last Admin: 08/06/19 18:00 Dose: Not Given Iopamidol (Isovue Multipack-370 (76%)) 80 ml IVPUSH ONETIME STA Stop: 08/04/19 13:01 Last Admin: 08/04/19 13:01 Dose: 80 ml Methylprednisolone Sodium Succinate (Solu-Medrol) 125 mg IVPUSH ONETIME ONE Stop: 08/04/19 10:26 Last Admin: 08/04/19 10:42 Dose: 125 mg Morphine Sulfate (Morphine) 2 mg IVPUSH ONETIME ONE Stop: 08/04/19 13:51 Last Admin: 08/04/19 13:55 Dose: 2 mg Morphine Sulfate (Morphine) 2 mg IVPUSH Q2H PRN PRN Reason: Pain (severe 7-10) Stop: 08/05/19 14:29 Last Admin: 08/05/19 08:47 Dose: 2 mg Morphine Sulfate (Morphine) 2 mg IVPUSH Q2H PRN PRN Reason: Pain (severe 7-10) Last Admin: 08/06/19 07:59 Dose: 2 mg Ondansetron HCl (Zofran Odt) 4 mg PO Q4H PRN PRN Reason: nausea, able to take PO Ondansetron HCl (Zofran) 4 mg IVPUSH Q4H PRN PRN Reason: Nausea Oxycodone HCl (Oxycodone) 5 mg PO Q4H PRN PRN Reason: Pain (moderate 4-6) Last Admin: 08/05/19 21:23 Dose: 5 mg Oxycodone HCl (Oxycodone) 10 mg PO Q6H PRN PRN Reason: Pain (moderate 4-6) Last Admin: 08/06/19 16:57 Dose: 10 mg Polyethylene Glycol (Miralax) 17 gm PO DAILY PRN PRN Reason: Constipation Potassium Chloride (Klor-Con M20) 40 meq PO ONETIME ONE Stop: 08/04/19 17:05 Last Admin: 08/04/19 17:18 Dose: 40 meq Potassium Chloride (Klor-Con M20) 40 meq PO Q4H [facility] Stop: 08/06/19 11:16 Last Admin: 08/06/19 11:52 Dose: 40 meq Potassium Chloride (Potassium Chloride) 40 meq PO ONETIME ONE Stop: 08/06/19 15:05 Last Admin: 08/06/19 15:14 Dose: 40 meq
== END 2019-08-06 18:45 | disposition home or self-care (01) | DRG 861 ==
LOC: MW.ED 10:08 → MW.MS 14:19
PROVIDERS: ADMIT Student in an Organized Health Care Education/Training Program; ATTEND Student in an Organized Health Care Education/Training Program
DX: G89.18 Other acute postprocedural pain (principal); R10.9 Unspecified abdominal pain; J43.9 Emphysema, unspecified; K43.5 Parastomal hernia without obstruction or gangrene; E87.6 Hypokalemia; K56.7 Ileus, unspecified; D50.9 Iron deficiency anemia, unspecified; F41.9 Anxiety disorder, unspecified; M19.90 Unspecified osteoarthritis, unspecified site; Z90.89 Acquired absence of other organs; Z79.52 Long term (current) use of systemic steroids; Z79.899 Other long term (current) drug therapy
CPT/HCPCS: 36415; 71046; 71046-26; 71275; 71275-26; 74177; 74177-26; 80048; 80053; 81001; 82607; 82728; 82746; 82962; 83036; 83550; 83605; 83735; 84484; 85025; 85610; 87040; 87046; 87324; 87804; 87899; 93005; 94640; 96361; 96365; 96375; 97161-GP; 99283; 99285-25; A9270-GY; J1650; J1756; J2270; J2543; J2930; J3475; J7030; J7050; J7120; J7620-GY; Q9967

== ENCOUNTER 2019-09-18 17:24 | Observation (INO) | payer BC, MEDICARE ==
[2019-09-18] MEDS ORDERED: Ondansetron 4 MG/2 ML SDV IVPUSH ONE (18:03)
[2019-09-18] MEDS ORDERED: Sodium Chloride 0.9% 1,000 ML IV ONE ×2 (18:03→20:23)
--- NOTE | 2019-09-18 18:55 | EDM.PDOC ---
ED HPI GENERAL MEDICAL PROBLEM - General Chief Complaint: Gastrointestinal Problem Stated Complaint: COLONOSCOPY BAG NEED DRAINING Time Seen by Provider: 09/18/19 18:54 - History of Present Illness INITIAL COMMENTS - FREE TEXT/NARRATIVE: HPI 58-year-old female with prior bowel obstruction, perforation, and subsequent ostomy presents for evaluation of 1+ days of decreased ostomy output with ongoing mild nausea following ~3 days of N/V and increased loose watery ostomy output. No dysuria, fevers, chills, chest pain, shortness of breath, cough. M/S/F/SocHx notable for: please see HPI; remainder reviewed with patient and in chart. ROS: Negative constitutional, eye, cardiovascular, pulmonary, GI, , MSK, skin , neurologic, psychiatric, endocrine unless noted in the HPI. Exam HR 92, RR 18, BP 153/67, T 36.3C, SaO2 96% on room air. Gen: Pleasant, non-toxic appearing, resting comfortably. HEENT: NC, AT, PEERL, EOMI. Resp: Clear to auscultation bilaterally, normal work of breathing, no accessory muscle usage. Card: Regular rate and rhythm with no murmurs, rubs, or gallops, extremities warm and well perfused. GI: nontender to palpation throughout quadrants, no rebound, no guarding, ostomy site without tenderness palpation or visual abnormalities. : No suprapubic tenderness to palpation. MSK: No visible deformities, strength and tone without visually appreciable deficit. Skin: Normal color with no visible lesions. Neuro: alert and oriented 3, no facial asymmetry, vision and hearing WNL. Psych: Mood and affect appropriate. Labs / Imaging: CBC, CMP, lipase, lactic acid, UA, CT abdomen/pelvis pending. MDM Previous chart, nursing note, labs, imaging, and vitals reviewed. A: 58-year-old female with prior bowel obstruction, perforation, and subsequent ostomy presents for evaluation of 1+ days of decreased ostomy output with ongoing mild nausea following ~3 days of N/V and increased loose watery ostomy output. DDx: dehydration, bacterial versus viral gastroenteritis, sepsis, UTI, pyelonephritis, electrolyte abnormalities, ileus, colitis, hernia, SBO, partial SBO. Evaluation: patient resting comfortably, 1 L NS and 4 mg Zofran given for initial symptom management. Disposition: patient care transferred to Dr. Lopez pending completion of evaluation. Impression: nausea, vomiting, diarrhea. left Lower Abdomen Pain Score (Numeric/FACES): 4 - Related Data Allergies Allergy/AdvReac Type Severity Reaction Status Date / Time No Known Allergies Allergy Verified 09/18/19 17:40 Home Meds: Home Meds ALPRAZolam [Xanax] 2 mg PO TID PRN 05/29/18 [History] Albuterol/Ipratropium [Combivent Respimat] 1 puff IH QID PRN 05/29/18 [History] Budesonide [Pulmicort] 1 dose INH BEDTIME 11/04/18 [History] Fluticasone Propionate [Flonase] 0 puff NASBOTH DAILY 11/04/18 [History] busPIRone [Buspar] 15 mg PO BID 11/04/18 [History] predniSONE [Prednisone] 20 mg PO DAILY PRN 07/11/19 [History] Acetaminophen with Codeine [Tylenol with Codeine #3 Tablet] 1 each PO Q6H PRN [History] Ondansetron [Zofran ODT] 4 mg PO Q6H PRN 08/04/19 [History] Rosuvastatin [Crestor] 5 mg PO BEDTIME 08/04/19 [History] Budesonide/Formoterol Fumarate [Symbicort 160-4.5 Mcg Inhaler] 6 gm IH BID 30 Days #1 hfa.aer.ad 08/06/19 [Rx] Ciprofloxacin HCl [Cipro] 250 mg PO BID 7 Days #14 tablet 08/06/19 [Rx] Iron Polysaccharides Complex [Ferrex 150] 150 mg PO DAILY #30 cap 08/06/19 [Rx] metroNIDAZOLE [Metronidazole] 500 mg PO BID 7 Days #14 tablet 08/06/19 [Rx] Past Medical History HEENT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: None Cardiovascular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: Heart Murmur, Other (See Below) 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 Respiratory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: COPD, Other (See Below) Other Respiratory History: emphsyema Gastrointestinal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: Bowel Obstruction Genitourinary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: None 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: Musculoskeletal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: Arthritis Neurological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: None Psychiatric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: Anxiety Endocrine/Metabolic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: None Hematologic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: None Immunologic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: None Oncologic (Cancer)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: None Dermatologic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: None - Infectious Disease History Infectious Disease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: Chicken Pox, Measles, Mumps - Past Surgical History Head Surgeries/Procedures: Reports: None HEENT Surgical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: Tonsillectomy Cardiovascular Surgical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: Cardiac Ablation Respiratory Surgical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: None GI Surgical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: Appendectomy, Colonoscopy, Colostomy, Other (See Below) Female Surgical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: Section, Tubal Ligation Endocrine Surgical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: None Neurological Surgical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: None Musculoskeletal Surgical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: None Oncologic Surgical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: None Dermatological Surgical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: None Social & Family History - Family History Family Medical History: Noncontributory - Tobacco Use Smoking Status *Q: Former Smoker Used Tobacco, but Quit: Yes Month/Year Tobacco Last Used: 2015 - Caffeine Use Caffeine Use: Reports: Coffee Other Caffeine Use: 3cups/day - Recreational Drug Use Recreational Drug Use: No ED ROS GENERAL - Review of Systems Review Of Systems: See Below ED EXAM, GENERAL - Physical Exam Exam: See Below Course - Vital Signs Last Recorded V/S: Last Vital Signs Temp 36.3 C 09/18/19 17:41 Pulse 92 09/18/19 17:41 Resp 18 09/18/19 17:41 BP 153/67 H 09/18/19 17:41 Pulse Ox 96 09/18/19 17:41 - Orders/Labs/Meds Orders: Active Orders 24 hr Category Date Time Status Abdomen Pelvis w Cont [CT] Stat Exams 09/18/19 18:02 Ordered COMPREHENSIVE METABOLIC PN,CMP [CHEM] Stat Lab 09/18/19 18:21 Received INFLUENZA A+B AG SCREEN [RM] Stat Lab 09/18/19 18:27 Received UA W/JEFFRY RFLX IF INDICATED [URIN] Stat Lab 09/18/19 18:02 Ordered Sodium Chloride 0.9% [Normal Saline] 1,000 ml Med 09/18/19 18:03 Active IV .Bolus Medication Orders Sodium Chloride (Normal Saline) 1,000 mls @ 1,000 mls/hr IV .Bolus ONE Stop: 09/18/19 19:02 Last Admin: 09/18/19 18:25 Dose: 1,000 mls/hr Labs: Laboratory Tests 09/18/19 09/18/19 Range/Units 18:21 18:21 WBC 5.08 (4.0-11.0) K/uL RBC 4.66 (4.30-5.90) M/uL Hgb 12.9 (12.0-16.0) g/dL Hct 40.2 (36.0-46.0) % MCV 86.3 (80.0-98.0) fL MCH 27.7 (27.0-32.0) pg MCHC 32.1 (31.0-37.0) g/dL RDW Std Deviation 49.9 (28.0-62.0) fl RDW Coeff of Shaq 16 H (11.0-15.0) % Plt Count 179 (150-400) K/uL MPV 10.40 (7.40-12.00) fL Neut % (Auto) 63.9 (48.0-80.0) % Lymph % (Auto) 27.4 (16.0-40.0) % [place] % (Auto) 7.3 (0.0-15.0) % Eos % (Auto) 1.0 (0.0-7.0) % Baso % (Auto) 0.4 (0.0-1.5) % Neut # (Auto) 3.3 (1.4-5.7) K/uL Lymph # (Auto) 1.4 (0.6-2.4) K/uL [place] # (Auto) 0.4 (0.0-0.8) K/uL Eos # (Auto) 0.1 (0.0-0.7) K/uL Baso # (Auto) 0.0 (0.0-0.1) K/uL Nucleated RBC % 0.0 /100WBC Nucleated RBCs # 0 K/uL Lactate 0.9 (0.20-2.00) mmol/L Meds: Medications Generic Name Dose Route Start Last Admin Trade Name Freq PRN Reason Stop Dose Admin Sodium Chloride 1,000 mls @ 1,000 mls/hr 09/18/19 18:03 09/18/19 18:25 Normal Saline IV 09/18/19 19:02 1,000 mls/hr .Bolus ONE Administration Discontinued Medications Generic Name Dose Route Start Last Admin Trade Name Freq PRN Reason Stop Dose Admin Ondansetron HCl 4 mg 09/18/19 18:03 09/18/19 18:26 Zofran IVPUSH 09/18/19 18:04 4 mg ONETIME ONE Administration Departure - Departure Time of Disposition: 18:54 Disposition: Still A Patient 30 Clinical Impression: Nausea vomiting and diarrhea - Discharge Information Referrals: PCP,None [Primary Care Provider] - Sepsis Event Note - Evaluation Sepsis Screening Result: No Definite Risk - Focused Exam Vital Signs: Vital Signs Temp Pulse Resp BP Pulse Ox 09/18/19 17:41 36.3 C 92 18 153/67 H 96 Date Exam was Performed: 09/18/19 Time Exam was Performed: 18:54 - My Orders Last 24 Hours: My Active Orders 09/18/19 18:02 Abdomen Pelvis w Cont [CT] Stat UA W/JEFFRY RFLX IF INDICATED [URIN] Stat 09/18/19 18:03 Sodium Chloride 0.9% [Normal Saline] 1,000 ml IV .Bolus 09/18/19 18:21 COMPREHENSIVE METABOLIC PN,CMP [CHEM] Stat 09/18/19 18:27 INFLUENZA A+B AG SCREEN [RM] Stat - Assessment/Plan Last 24 Hours: My Active Orders 09/18/19 18:02 Abdomen Pelvis w Cont [CT] Stat UA W/JEFFRY RFLX IF INDICATED [URIN] Stat 09/18/19 18:03 Sodium Chloride 0.9% [Normal Saline] 1,000 ml IV .Bolus 09/18/19 18:21 COMPREHENSIVE METABOLIC PN,CMP [CHEM] Stat 09/18/19 18:27 INFLUENZA A+B AG SCREEN [RM] Stat
[2019-09-18 18:58] LABS: BLOOD UREA NITROGEN,BUN 9 mg/dL (7.0-18.0); CARBON DIOXIDE,CO2 29.5 mmol/L (21.0-32.0); CHLORIDE,CL 100 mmol/L (98-107); GLUCOSE RANDOM 84 mg/dL (74-106); POTASSIUM,K 3.8 mmol/L (3.5-5.1); SODIUM,NA 138 mmol/L (136-145)
[2019-09-18] MEDS ORDERED: Iopamidol 755 MG/ML 200 ML Multipack Bottle IVPUSH ONE (19:09)
--- NOTE | 2019-09-18 20:11 | CT ---
INDICATION: Nausea and vomiting. Decreased ostomy output TECHNIQUE: CT abdomen and pelvis acquired with IV contrast. 100 mL of Isovue 370 administered. COMPARISON: 09/02/2019 FINDINGS: Lower chest: Mild emphysematous changes. Mild right lower lobe subsegmental atelectasis. A right breast implant again seen. Liver: Prominent right hepatic lobe which could represent a Torsten`s lobe. Spleen: Unremarkable. Pancreas: Unremarkable. Gallbladder and bile ducts: Tiny pericholecystic fluid, nonspecific. Possible small gallbladder sludge. Mild central biliary dilatation. Adrenal glands: Unremarkable. Kidneys: Partial duplication of the left renal collecting system. No hydronephrosis. A 1.4 cm left renal cyst. GI tract: A left lower quadrant stoma again seen. A parastomal hernia containing mildly distended bowel segments, with several borderline prominent fluid and gas-filled lower abdominal small bowel segments, Suggestive of partial obstruction. Vascular structures: Atherosclerotic changes. Lymph nodes: Unremarkable. Miscellaneous: Tiny posterior perihepatic fluid which appears higher than water in attenuation. Edema and stranding again seen in the omental fat. No free air. Pelvic Organs: Mild prominence of the uterine endometrium for the patient`s age, measuring 6 mm. No gross bladder abnormality seen. Bones: Mild degenerative changes in the lumbar spine. An L3 limbus vertebra again noted. A probable subcortical cyst in the right femoral head. IMPRESSION: A bowel containing parastomal hernia with suspected resulting partial or early bowel obstruction. Persistent edema and stranding in the omental fat. Mild prominence of the uterine endometrium for the patient`s age. Recommend further gynecological evaluation and sonography. Other findings as above. Dictated by Alhaji Astorga MD @ 09/18/2019 8:07:11 PM Please note that all CT scans at this facility use dose modulation, iterative reconstruction, and/or weight-based dosing when appropriate to reduce radiation dose to as low as reasonably achievable. Dictated by: Alhaji Astorga MD @ 09/18/2019 20:10:59 (Electronically Signed)
[2019-09-18] MEDS ORDERED: Ondansetron 4 MG Tab.DIS PO ONE (20:30)
[2019-09-18] MEDS ORDERED: Morphine 2 MG/ML SYRINGE IVPUSH PRN (21:25)
[2019-09-18] MEDS: Sodium Chloride 0.9% 1,000 ML IV SCH (21:50)
--- NOTE | 2019-09-18 23:35 | PCM.HP.2 ---
H&P History of Present Illness - General Date of Service: 09/18/19 Admit Problem/Dx: Admission Diagnosis/Problem Admission Diagnosis/Problem Obstruction of colon - History of Present Illness Initial Comments - Free Text/Narative: 58 y/o female with history of COPD and complex surgical history which includes colostomy s/p bowel perforation in June who presents to the ED with complaints of nausea and vomiting. PAtient reports two days ago developing nausea and vomiting with diarrhea. She says since then she has had no output from the ostomy. She denies any abdominal pain or fevers. CT scan in the ED reported parastomal hernia with partial bowel obstruction. During my interview patient did have gas coming from colostomy. left Lower Abdomen Pain Score (Numeric/FACES): 4 - Related Data Allergies/Adverse Reactions: Allergies Allergy/AdvReac Type Severity Reaction Status Date / Time No Known Allergies Allergy Verified 09/18/19 21:07 Home Medications: Home Meds ALPRAZolam [Xanax] 2 mg PO TID PRN 05/29/18 [History] Albuterol/Ipratropium [Combivent Respimat] 1 puff IH QID PRN 05/29/18 [History] Budesonide [Pulmicort] 1 dose INH BEDTIME 11/04/18 [History] Fluticasone Propionate [Flonase] 2 puff NASBOTH DAILY 11/04/18 [History] busPIRone [Buspar] 15 mg PO BID 11/04/18 [History] Ondansetron [Zofran ODT] 4 mg PO Q6H PRN 08/04/19 [History] Rosuvastatin [Crestor] 5 mg PO BEDTIME 08/04/19 [History] Budesonide/Formoterol Fumarate [Symbicort 160-4.5 Mcg Inhaler] 6 gm IH BID 30 Days #1 hfa.aer.ad 08/06/19 [Rx] Iron Polysaccharides Complex [Ferrex 150] 150 mg PO DAILY #30 cap 08/06/19 [Rx] Docusate Sodium [Colace] 100 mg PO BID 09/18/19 [History] Past Medical History HEENT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: None Cardiovascular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: Heart Murmur, Other (See Below) 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 Respiratory History: Reports: COPD, Other (See Below) Other Respiratory History: emphsyema Gastrointestinal History: Reports: Bowel Obstruction Other Gastrointestinal History: Bowel obstruction 2010, 2018, perforated colon in 2019 Genitourinary History: Reports: None 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: Musculoskeletal History: Reports: Arthritis Neurological History: Reports: None Psychiatric History: Reports: Anxiety, Depression, Panic Attack Endocrine/Metabolic History: Reports: None Hematologic History: Reports: Blood Transfusion(s) Immunologic History: Reports: None Oncologic (Cancer) History: Reports: None Dermatologic History: Reports: None - Infectious Disease History Infectious Disease History: Reports: Chicken Pox, Measles, Mumps - Past Surgical History Head Surgeries/Procedures: Reports: None HEENT Surgical History: Reports: Tonsillectomy Cardiovascular Surgical History: Reports: Cardiac Ablation Other Cardiovascular Surgeries/Procedures: Cardiac ablation in 1991 Respiratory Surgical History: Reports: None GI Surgical History: Reports: Appendectomy, Colostomy, Other (See Below) Female Surgical History: Reports: Section, Tubal Ligation Endocrine Surgical History: Reports: None Neurological Surgical History: Reports: None Musculoskeletal Surgical History: Reports: None Oncologic Surgical History: Reports: None Dermatological Surgical History: Reports: None Social & Family History - Family History Family Medical History: Noncontributory - Tobacco Use Smoking Status *Q: Former Smoker Years of Tobacco use: 30 Packs/Tins Daily: 1 Used Tobacco, but Quit: Yes Month/Year Tobacco Last Used: 2014 Second Hand Smoke Exposure: No - Caffeine Use Caffeine Use: Reports: Coffee Other Caffeine Use: 3cups/day Caffeine Use Comment: 1/2 cup each day - Recreational Drug Use Recreational Drug Use: No H&P Review of Systems - Review of Systems: Review Of Systems: Comprehensive ROS is negative, except as noted in HPI. Exam - Exam Exam: See Below - Vital Signs Vital Signs: Last Vital Signs Temp 36.3 C 09/18/19 20:44 Pulse 95 09/18/19 20:44 Resp 15 09/18/19 20:44 BP 146/71 H 09/18/19 20:44 Pulse Ox 91 L 09/18/19 20:44 Weight: 59.7 kg - Exam General: Alert, Oriented HEENT: Mucosa Moist & [place] Lungs: Clear to Auscultation, Normal Respiratory Effort Cardiovascular: Regular Rate, Regular Rhythm GI/Abdominal Exam: Normal Bowel Sounds, Soft, Non-Tender, No Distention Extremities: Non-Tender, No Pedal Edema Skin: Warm, Dry, Intact - Patient Data Lab Results Last 24 hrs: Laboratory Results - last 24 hr 09/18/19 09/18/19 09/18/19 Range/Units 18:21 18:21 18:21 WBC 5.08 (4.0-11.0) K/uL RBC 4.66 (4.30-5.90) M/uL Hgb 12.9 (12.0-16.0) g/dL Hct 40.2 (36.0-46.0) % MCV 86.3 (80.0-98.0) fL MCH 27.7 (27.0-32.0) pg MCHC 32.1 (31.0-37.0) g/dL RDW Std Deviation 49.9 (28.0-62.0) fl RDW Coeff of Shaq 16 H (11.0-15.0) % Plt Count 179 (150-400) K/uL MPV 10.40 (7.40-12.00) fL Neut % (Auto) 63.9 (48.0-80.0) % Lymph % (Auto) 27.4 (16.0-40.0) % [place] % (Auto) 7.3 (0.0-15.0) % Eos % (Auto) 1.0 (0.0-7.0) % Baso % (Auto) 0.4 (0.0-1.5) % Neut # (Auto) 3.3 (1.4-5.7) K/uL Lymph # (Auto) 1.4 (0.6-2.4) K/uL [place] # (Auto) 0.4 (0.0-0.8) K/uL Eos # (Auto) 0.1 (0.0-0.7) K/uL Baso # (Auto) 0.0 (0.0-0.1) K/uL Nucleated RBC % 0.0 /100WBC Nucleated RBCs # 0 K/uL Lactate 0.9 (0.20-2.00) mmol/L Sodium 138 (136-145) mmol/L Potassium 3.8 (3.5-5.1) mmol/L Chloride 100 (98-107) mmol/L Carbon Dioxide 29.5 (21.0-32.0) mmol/L BUN 9 (7.0-18.0) mg/dL Creatinine 0.6 (0.6-1.0) mg/dL Est Cr Clr Drug Dosing 96.39 mL/min Estimated GFR (MDRD) > 60.0 ml/min Glucose 84 (74-106) mg/dL Calcium 9.3 (8.5-10.1) mg/dL Total Bilirubin 0.8 (0.2-1.0) mg/dL AST 18 (15-37) IU/L ALT 18 (14-63) IU/L Alkaline Phosphatase 70 (46-116) U/L Total Protein 7.9 (6.4-8.2) g/dL Albumin 4.3 (3.4-5.0) g/dL Globulin 3.6 (2.6-4.0) g/dL Albumin/Globulin Ratio 1.2 (0.9-1.6) Urine Color Urine Appearance Urine pH (5.0-8.0) Ur Specific [place] (1.001-1.035) Urine Protein (NEGATIVE) mg/dL Urine Glucose (UA) (NEGATIVE) mg/dL Urine Ketones (NEGATIVE) mg/dL Urine Occult Blood (NEGATIVE) Urine Nitrite (NEGATIVE) Urine Bilirubin (NEGATIVE) Urine Urobilinogen (<2.0) EU/dL Ur Leukocyte Esterase (NEGATIVE) Urine RBC (0-2/HPF) Urine WBC (0-5/HPF) Ur Epithelial Cells (NONE-FEW) Urine Bacteria (NEGATIVE) Urine Mucus (NONE-MOD) 09/18/19 Range/Units 19:55 WBC (4.0-11.0) K/uL RBC (4.30-5.90) M/uL Hgb (12.0-16.0) g/dL Hct (36.0-46.0) % MCV (80.0-98.0) fL MCH (27.0-32.0) pg MCHC (31.0-37.0) g/dL RDW Std Deviation (28.0-62.0) fl RDW Coeff of Shaq (11.0-15.0) % Plt Count (150-400) K/uL MPV (7.40-12.00) fL Neut % (Auto) (48.0-80.0) % Lymph % (Auto) (16.0-40.0) % [place] % (Auto) (0.0-15.0) % Eos % (Auto) (0.0-7.0) % Baso % (Auto) (0.0-1.5) % Neut # (Auto) (1.4-5.7) K/uL Lymph # (Auto) (0.6-2.4) K/uL [place] # (Auto) (0.0-0.8) K/uL Eos # (Auto) (0.0-0.7) K/uL Baso # (Auto) (0.0-0.1) K/uL Nucleated RBC % /100WBC Nucleated RBCs # K/uL Lactate (0.20-2.00) mmol/L Sodium (136-145) mmol/L Potassium (3.5-5.1) mmol/L Chloride (98-107) mmol/L Carbon Dioxide (21.0-32.0) mmol/L BUN (7.0-18.0) mg/dL Creatinine (0.6-1.0) mg/dL Est Cr Clr Drug Dosing mL/min Estimated GFR (MDRD) ml/min Glucose (74-106) mg/dL Calcium (8.5-10.1) mg/dL Total Bilirubin (0.2-1.0) mg/dL AST (15-37) IU/L ALT (14-63) IU/L Alkaline Phosphatase (46-116) U/L Total Protein (6.4-8.2) g/dL Albumin (3.4-5.0) g/dL Globulin (2.6-4.0) g/dL Albumin/Globulin Ratio (0.9-1.6) Urine Color YELLOW Urine Appearance CLEAR Urine pH 6.5 (5.0-8.0) Ur Specific [place] 1.015 (1.001-1.035) Urine Protein NEGATIVE (NEGATIVE) mg/dL Urine Glucose (UA) NEGATIVE (NEGATIVE) mg/dL Urine Ketones 15 H (NEGATIVE) mg/dL Urine Occult Blood NEGATIVE (NEGATIVE) Urine Nitrite NEGATIVE (NEGATIVE) Urine Bilirubin NEGATIVE (NEGATIVE) Urine Urobilinogen 0.2 (<2.0) EU/dL Ur Leukocyte Esterase SMALL H (NEGATIVE) Urine RBC 0-1 (0-2/HPF) Urine WBC 1-3 (0-5/HPF) Ur Epithelial Cells FEW (NONE-FEW) Urine Bacteria RARE (NEGATIVE) Urine Mucus LIGHT (NONE-MOD) Result Diagrams: 09/20/19 05:35 09/20/19 05:35 Yair Results Last 24 hrs: Microbiology 09/18/19 18:27 Influenza Type A Antigen Screen - Final Nasopharyngeal Swab NEGATIVE INFLUENZA A VIRUS AG REFERENCE RANGE: NEGATIVE Influenza Type B Antigen Screen - Final NEGATIVE INFLUENZA B VIRUS AG REFERENCE RANGE: NEGATIVE Sepsis Event Note - Evaluation Sepsis Screening Result: No Definite Risk - Focused Exam Vital Signs: Vital Signs Temp Pulse Resp BP Pulse Ox 09/18/19 20:44 36.3 C 95 15 146/71 H 91 L 09/18/19 19:40 36.7 C 89 18 138/73 96 09/18/19 17:41 36.3 C 92 18 153/67 H 96 Date Exam was Performed: 09/23/19 Time Exam was Performed: 14:27 Problem List Initiated/Reviewed/Updated: Yes Orders Last 24hrs: Active Orders 24 hr Category Date Time Status Patient Status [ADT] Stat ADT 09/18/19 20:25 Active Antiembolic Devices [RC] PER UNIT ROUTINE Care 09/18/19 23:34 Ordered Oxygen Therapy [RC] PRN Care 09/18/19 23:34 Ordered Up ad Felicity [RC] ASDIRECTED Care 09/18/19 23:34 Ordered VTE/DVT Education [RC] PER UNIT ROUTINE Care 09/18/19 23:34 Ordered Vital Signs [RC] Q4H Care 09/18/19 23:34 Ordered NPO [Nothing Per Oral Diet] [DIET] Diet 09/19/19 Breakfast Active Nothing per Oral Now Diet [DIET] Diet 09/18/19 Breakfast Ordered BMP [BASIC METABOLIC PANEL,BMP] [CHEM] AM Lab 09/19/19 05:11 Ordered CBC WITH AUTO DIFF [HEME] AM Lab 09/19/19 05:11 Ordered Morphine Med 09/18/19 21:25 Active 2 mg IVPUSH Q3H PRN Sodium Chloride 0.9% [Normal Saline] 1,000 ml Med 09/18/19 21:30 Active IV ASDIRECTED Sequential Compression Device [OM.PC] Per Unit Routine Oth 09/18/19 23:34 Ordered Resuscitation Status Routine Resus Stat 09/18/19 23:34 Ordered Medication Orders Sodium Chloride (Normal Saline) 1,000 mls @ 125 mls/hr IV ASDIRECTED [facility] Last Admin: 09/18/19 21:50 Dose: 125 mls/hr Morphine Sulfate (Morphine) 2 mg IVPUSH Q3H PRN PRN Reason: Pain Assessment/Plan Comment:: 58 yo female with partial bowel obstruction. Dr. Maldonado was consult by ED physician. We will treat with bowel rest and IV fluids.
[2019-09-19] MEDS: Sodium Chloride 0.9% 1,000 ML IV SCH ×2 (05:59→21:05)
[2019-09-19 06:21] LABS: BLOOD UREA NITROGEN,BUN 6 mg/dL (7.0-18.0); CARBON DIOXIDE,CO2 25.6 mmol/L (21.0-32.0); CHLORIDE,CL 106 mmol/L (98-107); GLUCOSE RANDOM 72 mg/dL (74-106); POTASSIUM,K 3.3 mmol/L (3.5-5.1); SODIUM,NA 140 mmol/L (136-145)
[2019-09-19] MEDS: Ondansetron 4 MG/2 ML SDV IVPUSH PRN ×3 (10:05→19:45)
--- NOTE | 2019-09-19 10:12 | PCM.CONS ---
H&P History of Present Illness - General Date of Service: 09/19/19 Admit Problem/Dx: Admission Diagnosis/Problem Admission Diagnosis/Problem Obstruction of colon Source of Information: Patient History Limitations: Reports: No Limitations - History of Present Illness Initial Comments - Free Text/Narative: Patient is a 58 year old female with COPD and a LLQ ostomy who presents with a partial bowel obstruction. She had a sigmoid colon perforation in June and underwent an emergency exploratory laparotomy, resection of the perforated segment and creation of an end ostomy. She was admitted to the ICU afterwards and developed septic shock, respiratory failure, adrenal insufficiency and a post operative ileus. She went back into surgery for partial wound dehiscence and a post operative hematoma during her stay. She was discharged home and subsequently developed a parastomal hernia. She has admitted to this hospital shortly after and found to have a parastomal hernia which had caused a partial bowel obstruction. She saw her primary surgeon at the beginning of August but they did not mention the hernia. They said they would see her again in one year. She presented to the ER last night due to decreased ostomy output. She states that she has had nausea and bloating since Sep 16. She continues to have gas output but has not had any stool in her bag since an episode of diarrhea on the . She denies vomiting. She hasnt been eating food and just sipping on liquids. She presented to the ER last night and a CT scan showed a loop of dilated bowel in the parastomal hernia concerning for a suspected early partial SBO. The patient was admitted to the hospital and made NPO with IVF. This morning she still has gas in her bag but still feels slightly nauseated. left Lower Abdomen Pain Score (Numeric/FACES): 4 - Related Data Allergies/Adverse Reactions: Allergies Allergy/AdvReac Type Severity Reaction Status Date / Time No Known Allergies Allergy Verified 09/18/19 21:07 Home Medications: Home Meds ALPRAZolam [Xanax] 2 mg PO TID PRN 05/29/18 [History] Albuterol/Ipratropium [Combivent Respimat] 1 puff IH QID PRN 05/29/18 [History] Budesonide [Pulmicort] 1 dose INH BEDTIME 11/04/18 [History] Fluticasone Propionate [Flonase] 2 puff NASBOTH DAILY 11/04/18 [History] busPIRone [Buspar] 15 mg PO BID 11/04/18 [History] Ondansetron [Zofran ODT] 4 mg PO Q6H PRN 08/04/19 [History] Rosuvastatin [Crestor] 5 mg PO BEDTIME 08/04/19 [History] Budesonide/Formoterol Fumarate [Symbicort 160-4.5 Mcg Inhaler] 6 gm IH BID 30 Days #1 hfa.aer.ad 08/06/19 [Rx] Iron Polysaccharides Complex [Ferrex 150] 150 mg PO DAILY #30 cap 08/06/19 [Rx] Docusate Sodium [Colace] 100 mg PO BID 09/18/19 [History] Past Medical History HEENT History: Reports: None Cardiovascular History: Reports: Heart Murmur, Other (See Below) 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 Respiratory History: Reports: COPD, Other (See Below) Other Respiratory History: emphsyema Gastrointestinal History: Reports: Bowel Obstruction Other Gastrointestinal History: Bowel obstruction 2010, 2018, perforated colon in 2018 Genitourinary History: Reports: None [employer] History: Reports: Musculoskeletal History: Reports: Arthritis Neurological History: Reports: None Psychiatric History: Reports: Anxiety, Depression, Panic Attack Endocrine/Metabolic History: Reports: None Hematologic History: Reports: Blood Transfusion(s) Immunologic History: Reports: None Oncologic (Cancer) History: Reports: None Dermatologic History: Reports: None - Infectious Disease History Infectious Disease History: Reports: Chicken Pox, Measles, Mumps - Past Surgical History Head Surgeries/Procedures: Reports: None HEENT Surgical History: Reports: Tonsillectomy Cardiovascular Surgical History: Reports: Cardiac Ablation Other Cardiovascular Surgeries/Procedures: Cardiac ablation in 1991 Respiratory Surgical History: Reports: None GI Surgical History: Reports: Appendectomy, Colostomy, Other (See Below) Female Surgical History: Reports: Section, Tubal Ligation Endocrine Surgical History: Reports: None Neurological Surgical History: Reports: None Musculoskeletal Surgical History: Reports: None Oncologic Surgical History: Reports: None Dermatological Surgical History: Reports: None Social & Family History - Family History Family Medical History: Noncontributory - Tobacco Use Smoking Status *Q: Former Smoker Years of Tobacco use: 30 Packs/Tins Daily: 1 Used Tobacco, but Quit: Yes Month/Year Tobacco Last Used: 2014 Second Hand Smoke Exposure: No - Caffeine Use Caffeine Use: Reports: Coffee Other Caffeine Use: 3cups/day Caffeine Use Comment: 1/2 cup each day - Recreational Drug Use Recreational Drug Use: No H&P Review of Systems - Review of Systems: Review Of Systems: Comprehensive ROS is negative, except as noted in HPI. Exam - Exam Exam: See Below - Vital Signs Vital Signs: Last Vital Signs Temp 36.3 C 09/19/19 07:20 Pulse 87 09/19/19 07:20 Resp 16 09/19/19 07:20 BP 101/61 09/19/19 07:20 Pulse Ox 91 L 09/19/19 07:20 Weight: 59.7 kg - Exam General: Alert, Oriented, Cooperative HEENT: Conjunctiva Clear, Mucosa Moist & [place], Posterior Pharynx Clear Neck: Supple, Trachea Midline Lungs: Clear to Auscultation, Normal Respiratory Effort Cardiovascular: Regular Rate, Regular Rhythm GI/Abdominal Exam: Soft, No Distention, No Mass, Other (stomal hernia underneath pink healthy appearing stoma. Soft, nontender. Gas in bag. ) Back Exam: Normal Inspection Extremities: Normal Inspection, Normal Range of Motion - Patient Data Lab Results Last 24 hrs: Laboratory Results - last 24 hr 09/18/19 09/18/19 09/18/19 Range/Units 18:21 18:21 18:21 WBC 5.08 (4.0-11.0) K/uL RBC 4.66 (4.30-5.90) M/uL Hgb 12.9 (12.0-16.0) g/dL Hct 40.2 (36.0-46.0) % MCV 86.3 (80.0-98.0) fL MCH 27.7 (27.0-32.0) pg MCHC 32.1 (31.0-37.0) g/dL RDW Std Deviation 49.9 (28.0-62.0) fl RDW Coeff of Shaq 16 H (11.0-15.0) % Plt Count 179 (150-400) K/uL MPV 10.40 (7.40-12.00) fL Neut % (Auto) 63.9 (48.0-80.0) % Lymph % (Auto) 27.4 (16.0-40.0) % [place] % (Auto) 7.3 (0.0-15.0) % Eos % (Auto) 1.0 (0.0-7.0) % Baso % (Auto) 0.4 (0.0-1.5) % Neut # (Auto) 3.3 (1.4-5.7) K/uL Lymph # (Auto) 1.4 (0.6-2.4) K/uL [place] # (Auto) 0.4 (0.0-0.8) K/uL Eos # (Auto) 0.1 (0.0-0.7) K/uL Baso # (Auto) 0.0 (0.0-0.1) K/uL Nucleated RBC % 0.0 /100WBC Nucleated RBCs # 0 K/uL Lactate 0.9 (0.20-2.00) mmol/L Sodium 138 (136-145) mmol/L Potassium 3.8 (3.5-5.1) mmol/L Chloride 100 (98-107) mmol/L Carbon Dioxide 29.5 (21.0-32.0) mmol/L BUN 9 (7.0-18.0) mg/dL Creatinine 0.6 (0.6-1.0) mg/dL Est Cr Clr Drug Dosing 96.39 mL/min Estimated GFR (MDRD) > 60.0 ml/min Glucose 84 (74-106) mg/dL Calcium 9.3 (8.5-10.1) mg/dL Total Bilirubin 0.8 (0.2-1.0) mg/dL AST 18 (15-37) IU/L ALT 18 (14-63) IU/L Alkaline Phosphatase 70 (46-116) U/L Total Protein 7.9 (6.4-8.2) g/dL Albumin 4.3 (3.4-5.0) g/dL Globulin 3.6 (2.6-4.0) g/dL Albumin/Globulin Ratio 1.2 (0.9-1.6) Urine Color Urine Appearance Urine pH (5.0-8.0) Ur Specific [place] (1.001-1.035) Urine Protein (NEGATIVE) mg/dL Urine Glucose (UA) (NEGATIVE) mg/dL Urine Ketones (NEGATIVE) mg/dL Urine Occult Blood (NEGATIVE) Urine Nitrite (NEGATIVE) Urine Bilirubin (NEGATIVE) Urine Urobilinogen (<2.0) EU/dL Ur Leukocyte Esterase (NEGATIVE) Urine RBC (0-2/HPF) Urine WBC (0-5/HPF) Ur Epithelial Cells (NONE-FEW) Urine Bacteria (NEGATIVE) Urine Mucus (NONE-MOD) 09/18/19 09/19/19 09/19/19 Range/Units 19:55 05:45 05:45 WBC 4.69 (4.0-11.0) K/uL RBC 3.99 L (4.30-5.90) M/uL Hgb 10.8 L (12.0-16.0) g/dL Hct 34.3 L (36.0-46.0) % MCV 86.0 (80.0-98.0) fL MCH 27.1 (27.0-32.0) pg MCHC 31.5 (31.0-37.0) g/dL RDW Std Deviation 49.1 (28.0-62.0) fl RDW Coeff of Shaq 15 (11.0-15.0) % Plt Count 186 (150-400) K/uL MPV 10.20 (7.40-12.00) fL Neut % (Auto) 45.2 L (48.0-80.0) % Lymph % (Auto) 42.0 H (16.0-40.0) % [place] % (Auto) 9.8 (0.0-15.0) % Eos % (Auto) 2.6 (0.0-7.0) % Baso % (Auto) 0.4 (0.0-1.5) % Neut # (Auto) 2.1 (1.4-5.7) K/uL Lymph # (Auto) 2.0 (0.6-2.4) K/uL [place] # (Auto) 0.5 (0.0-0.8) K/uL Eos # (Auto) 0.1 (0.0-0.7) K/uL Baso # (Auto) 0.0 (0.0-0.1) K/uL Nucleated RBC % 0.0 /100WBC Nucleated RBCs # 0 K/uL Lactate (0.20-2.00) mmol/L Sodium 140 (136-145) mmol/L Potassium 3.3 L (3.5-5.1) mmol/L Chloride 106 (98-107) mmol/L Carbon Dioxide 25.6 (21.0-32.0) mmol/L BUN 6 L (7.0-18.0) mg/dL Creatinine 0.5 L (0.6-1.0) mg/dL Est Cr Clr Drug Dosing 112.77 mL/min Estimated GFR (MDRD) > 60.0 ml/min Glucose 72 L (74-106) mg/dL Calcium 8.2 L (8.5-10.1) mg/dL Total Bilirubin (0.2-1.0) mg/dL AST (15-37) IU/L ALT (14-63) IU/L Alkaline Phosphatase (46-116) U/L Total Protein (6.4-8.2) g/dL Albumin (3.4-5.0) g/dL Globulin (2.6-4.0) g/dL Albumin/Globulin Ratio (0.9-1.6) Urine Color YELLOW Urine Appearance CLEAR Urine pH 6.5 (5.0-8.0) Ur Specific [place] 1.015 (1.001-1.035) Urine Protein NEGATIVE (NEGATIVE) mg/dL Urine Glucose (UA) NEGATIVE (NEGATIVE) mg/dL Urine Ketones 15 H (NEGATIVE) mg/dL Urine Occult Blood NEGATIVE (NEGATIVE) Urine Nitrite NEGATIVE (NEGATIVE) Urine Bilirubin NEGATIVE (NEGATIVE) Urine Urobilinogen 0.2 (<2.0) EU/dL Ur Leukocyte Esterase SMALL H (NEGATIVE) Urine RBC 0-1 (0-2/HPF) Urine WBC 1-3 (0-5/HPF) Ur Epithelial Cells FEW (NONE-FEW) Urine Bacteria RARE (NEGATIVE) Urine Mucus LIGHT (NONE-MOD) Result Diagrams: 09/19/19 05:45 09/19/19 05:45 Yair Results Last 24 hrs: Microbiology 09/18/19 18:27 Influenza Type A Antigen Screen - Final Nasopharyngeal Swab NEGATIVE INFLUENZA A VIRUS AG REFERENCE RANGE: NEGATIVE Influenza Type B Antigen Screen - Final NEGATIVE INFLUENZA B VIRUS AG REFERENCE RANGE: NEGATIVE Sepsis Event Note - Evaluation Sepsis Screening Result: No Definite Risk - Focused Exam Vital Signs: Vital Signs Temp Pulse Resp BP Pulse Ox 09/19/19 07:20 36.3 C 87 16 101/61 91 L 09/19/19 04:00 36.4 C 84 16 138/63 93 L 09/19/19 00:28 36.5 C 76 16 122/71 94 L Date Exam was Performed: 09/19/19 Time Exam was Performed: 10:14 Consult PN Assessment/Plan Procedures: Procedures AIRWAY INHALATION TREATMENT (11/07/18) ANTINUCLEAR ANTIBODIES (10/25/16) ASSAY OF AMYLASE (07/14/17) ASSAY OF LACTIC ACID (05/29/18) ASSAY OF LIPASE (07/11/19) ASSAY OF TROPONIN QUANT (05/29/18) BLOOD CULTURE FOR BACTERIA (07/11/19) BLOOD GASES ANY COMBINATION (11/07/18) COMPLETE CBC W/AUTO DIFF WBC (07/11/19) COMPREHEN METABOLIC PANEL (07/11/19) CT ABD & PELVIS W/O CONTRAST (09/02/19) CULTURE AEROBIC IDENTIFY (11/07/18) CULTURE OTHR SPECIMN AEROBIC (11/07/18) ECHO EXAM OF ABDOMEN (10/10/17) ELECTROCARDIOGRAM TRACING (05/29/18) EMERGENCY DEPT VISIT (07/11/19) EMERGENCY DEPT VISIT (05/29/18) GLUCOSE BLOOD TEST (05/29/18) HEPATITIS C AB TEST (03/04/19) HYDRATE IV INFUSION ADD-ON (07/11/19) IIV4 VACC NO PRSV 0.5 ML IM (05/29/18) INFLUENZA ASSAY W/OPTIC (11/07/18) LIPID PANEL (05/31/19) METABOLIC PANEL TOTAL CA (05/29/18) MICROBE SUSCEPTIBLE YAIR (11/07/18) PPSV23 VACC 2 YRS+ SUBQ/IM (05/29/18) RBC SED RATE AUTOMATED (10/25/16) RHEUMATOID FACTOR TEST QUAL (10/25/16) ROUTINE VENIPUNCTURE (07/11/19) SMEAR GRAM STAIN (11/07/18) THER/PROPH/DIAG INJ IV PUSH (11/07/18) THER/PROPH/DIAG INJ SC/IM (05/29/18) THER/PROPH/DIAG IV INF ADDON (05/29/18) THER/PROPH/DIAG IV INF INIT (07/11/19) TX/PRO/DX INJ NEW DRUG ADDON (07/11/19) TX/PRO/DX INJ SAME DRUG BOOKBINDER APPRENTICE (05/29/18) URINALYSIS AUTO W/O SCOPE (07/11/19) URINALYSIS AUTO W/SCOPE (05/29/18) URINE CULTURE/COLONY COUNT (05/29/18) WITHDRAWAL OF ARTERIAL BLOOD (11/07/18) X-RAY EXAM ABDOMEN 1 VIEW (10/27/17) X-RAY EXAM CHEST 1 VIEW (11/07/18) X-RAY XM COLON 2CNTRST STD (11/11/17) X-RAY XM UPR GI TRC 1CNTRST (10/17/17) (1) Parastomal hernia SNOMED Code(s): 484668149 Code(s): K43.5 - PARASTOMAL HERNIA WITHOUT OBSTRUCTION OR GANGRENE Current Visit: Yes (2) Partial bowel obstruction SNOMED Code(s): 27918585677520497 Code(s): K56.600 - PARTIAL INTESTINAL OBSTRUCTION, UNSPECIFIED TO CAUSE Current Visit: Yes Problem List Initiated/Reviewed/Updated: Yes Plan: The patient does not have an acute abdomen at this time. She should continue with bowel rest (NPO except ice chips and sips with meds) and IVFs. Will see how she does over the next 24 hours. If there is no ostomy output by tomorrow morning will have a discussion regarding transfer for possible operative management. if she opens up and starts having ostomy output she will need to be seen by a colorectal surgeon or her primary surgeon regarding parastomal hernia repair as an outpatient.
[2019-09-19] MEDS: ALPRAZolam 0.5 MG Tab PO PRN ×2 (10:32→18:44)
[2019-09-19] MEDS ORDERED: Sodium Chloride 0.9% with KCl 1,000 ML IV SCH (13:30)
--- NOTE | 2019-09-19 13:32 | PCM.PN ---
- General Info Date of Service: 09/19/19 - Review of Systems Systems Review Comment:: nausea has improved since this morning. - Patient Data Vitals - Most Recent: Last Vital Signs Temp 36.3 C 09/19/19 11:00 Pulse 82 09/19/19 11:00 Resp 16 09/19/19 11:00 BP 118/68 09/19/19 11:00 Pulse Ox 97 09/19/19 11:00 Weight - Most Recent: 59.7 kg I&O - Last 24 Hours: Intake & Output 09/18/19 09/19/19 09/19/19 22:59 06:59 14:59 Intake Total 754 Output Total 1200 Balance -446 Lab Results Last 24 Hours: Laboratory Results - last 24 hr 09/18/19 09/18/19 09/18/19 Range/Units 18:21 18:21 18:21 WBC 5.08 (4.0-11.0) K/uL RBC 4.66 (4.30-5.90) M/uL Hgb 12.9 (12.0-16.0) g/dL Hct 40.2 (36.0-46.0) % MCV 86.3 (80.0-98.0) fL MCH 27.7 (27.0-32.0) pg MCHC 32.1 (31.0-37.0) g/dL RDW Std Deviation 49.9 (28.0-62.0) fl RDW Coeff of Shaq 16 H (11.0-15.0) % Plt Count 179 (150-400) K/uL MPV 10.40 (7.40-12.00) fL Neut % (Auto) 63.9 (48.0-80.0) % Lymph % (Auto) 27.4 (16.0-40.0) % [place] % (Auto) 7.3 (0.0-15.0) % Eos % (Auto) 1.0 (0.0-7.0) % Baso % (Auto) 0.4 (0.0-1.5) % Neut # (Auto) 3.3 (1.4-5.7) K/uL Lymph # (Auto) 1.4 (0.6-2.4) K/uL [place] # (Auto) 0.4 (0.0-0.8) K/uL Eos # (Auto) 0.1 (0.0-0.7) K/uL Baso # (Auto) 0.0 (0.0-0.1) K/uL Nucleated RBC % 0.0 /100WBC Nucleated RBCs # 0 K/uL Lactate 0.9 (0.20-2.00) mmol/L Sodium 138 (136-145) mmol/L Potassium 3.8 (3.5-5.1) mmol/L Chloride 100 (98-107) mmol/L Carbon Dioxide 29.5 (21.0-32.0) mmol/L BUN 9 (7.0-18.0) mg/dL Creatinine 0.6 (0.6-1.0) mg/dL Est Cr Clr Drug Dosing 96.39 mL/min Estimated GFR (MDRD) > 60.0 ml/min Glucose 84 (74-106) mg/dL Calcium 9.3 (8.5-10.1) mg/dL Total Bilirubin 0.8 (0.2-1.0) mg/dL AST 18 (15-37) IU/L ALT 18 (14-63) IU/L Alkaline Phosphatase 70 (46-116) U/L Total Protein 7.9 (6.4-8.2) g/dL Albumin 4.3 (3.4-5.0) g/dL Globulin 3.6 (2.6-4.0) g/dL Albumin/Globulin Ratio 1.2 (0.9-1.6) Urine Color Urine Appearance Urine pH (5.0-8.0) Ur Specific [place] (1.001-1.035) Urine Protein (NEGATIVE) mg/dL Urine Glucose (UA) (NEGATIVE) mg/dL Urine Ketones (NEGATIVE) mg/dL Urine Occult Blood (NEGATIVE) Urine Nitrite (NEGATIVE) Urine Bilirubin (NEGATIVE) Urine Urobilinogen (<2.0) EU/dL Ur Leukocyte Esterase (NEGATIVE) Urine RBC (0-2/HPF) Urine WBC (0-5/HPF) Ur Epithelial Cells (NONE-FEW) Urine Bacteria (NEGATIVE) Urine Mucus (NONE-MOD) 09/18/19 09/19/19 09/19/19 Range/Units 19:55 05:45 05:45 WBC 4.69 (4.0-11.0) K/uL RBC 3.99 L (4.30-5.90) M/uL Hgb 10.8 L (12.0-16.0) g/dL Hct 34.3 L (36.0-46.0) % MCV 86.0 (80.0-98.0) fL MCH 27.1 (27.0-32.0) pg MCHC 31.5 (31.0-37.0) g/dL RDW Std Deviation 49.1 (28.0-62.0) fl RDW Coeff of Shaq 15 (11.0-15.0) % Plt Count 186 (150-400) K/uL MPV 10.20 (7.40-12.00) fL Neut % (Auto) 45.2 L (48.0-80.0) % Lymph % (Auto) 42.0 H (16.0-40.0) % [place] % (Auto) 9.8 (0.0-15.0) % Eos % (Auto) 2.6 (0.0-7.0) % Baso % (Auto) 0.4 (0.0-1.5) % Neut # (Auto) 2.1 (1.4-5.7) K/uL Lymph # (Auto) 2.0 (0.6-2.4) K/uL [place] # (Auto) 0.5 (0.0-0.8) K/uL Eos # (Auto) 0.1 (0.0-0.7) K/uL Baso # (Auto) 0.0 (0.0-0.1) K/uL Nucleated RBC % 0.0 /100WBC Nucleated RBCs # 0 K/uL Lactate (0.20-2.00) mmol/L Sodium 140 (136-145) mmol/L Potassium 3.3 L (3.5-5.1) mmol/L Chloride 106 (98-107) mmol/L Carbon Dioxide 25.6 (21.0-32.0) mmol/L BUN 6 L (7.0-18.0) mg/dL Creatinine 0.5 L (0.6-1.0) mg/dL Est Cr Clr Drug Dosing 112.77 mL/min Estimated GFR (MDRD) > 60.0 ml/min Glucose 72 L (74-106) mg/dL Calcium 8.2 L (8.5-10.1) mg/dL Total Bilirubin (0.2-1.0) mg/dL AST (15-37) IU/L ALT (14-63) IU/L Alkaline Phosphatase (46-116) U/L Total Protein (6.4-8.2) g/dL Albumin (3.4-5.0) g/dL Globulin (2.6-4.0) g/dL Albumin/Globulin Ratio (0.9-1.6) Urine Color YELLOW Urine Appearance CLEAR Urine pH 6.5 (5.0-8.0) Ur Specific [place] 1.015 (1.001-1.035) Urine Protein NEGATIVE (NEGATIVE) mg/dL Urine Glucose (UA) NEGATIVE (NEGATIVE) mg/dL Urine Ketones 15 H (NEGATIVE) mg/dL Urine Occult Blood NEGATIVE (NEGATIVE) Urine Nitrite NEGATIVE (NEGATIVE) Urine Bilirubin NEGATIVE (NEGATIVE) Urine Urobilinogen 0.2 (<2.0) EU/dL Ur Leukocyte Esterase SMALL H (NEGATIVE) Urine RBC 0-1 (0-2/HPF) Urine WBC 1-3 (0-5/HPF) Ur Epithelial Cells FEW (NONE-FEW) Urine Bacteria RARE (NEGATIVE) Urine Mucus LIGHT (NONE-MOD) Yair Results Last 24 Hours: Microbiology 09/18/19 18:27 Influenza Type A Antigen Screen - Final Nasopharyngeal Swab NEGATIVE INFLUENZA A VIRUS AG REFERENCE RANGE: NEGATIVE Influenza Type B Antigen Screen - Final NEGATIVE INFLUENZA B VIRUS AG REFERENCE RANGE: NEGATIVE Med Orders - Current: Current Medications Alprazolam (Xanax) 2 mg PO TID PRN PRN Reason: Anxiety Last Admin: 09/19/19 10:32 Dose: 2 mg Heparin Sodium (Porcine) (Heparin Sodium) 5,000 units SUBCUT Q8H CLARA Sodium Chloride (Normal Saline) 1,000 mls @ 125 mls/hr IV ASDIRECTED [facility] Last Admin: 09/19/19 05:59 Dose: 125 mls/hr Potassium Chloride/Sodium Chloride (Normal Saline With 40 Meq Kcl) 1,000 mls @ 150 mls/hr IV ASDIRECTED [facility] Stop: 09/19/19 20:09 Morphine Sulfate (Morphine) 2 mg IVPUSH Q3H PRN PRN Reason: Pain Ondansetron HCl (Zofran) 4 mg IVPUSH Q4H PRN PRN Reason: Nausea/Vomiting Last Admin: 09/19/19 10:05 Dose: 4 mg Discontinued Medications Sodium Chloride (Normal Saline) 1,000 mls @ 1,000 mls/hr IV .Bolus ONE Stop: 09/18/19 19:02 Last Admin: 09/18/19 18:25 Dose: 1,000 mls/hr Sodium Chloride (Normal Saline) 1,000 mls @ 999 mls/hr IV .BOLUS ONE Stop: 09/18/19 21:23 Last Admin: 09/18/19 20:39 Dose: 999 mls/hr Iopamidol (Isovue Multipack-370 (76%)) 100 ml IVPUSH ONETIME ONE Stop: 09/18/19 19:10 Last Admin: 09/18/19 19:10 Dose: 100 ml Ondansetron HCl (Zofran) 4 mg IVPUSH ONETIME ONE Stop: 09/18/19 18:04 Last Admin: 09/18/19 18:26 Dose: 4 mg Ondansetron HCl (Zofran Odt) 4 mg PO ONETIME ONE Stop: 09/18/19 20:31 Last Admin: 09/18/19 20:39 Dose: 4 mg - Exam General: Alert, Oriented Lungs: Clear to Auscultation, Normal Respiratory Effort Cardiovascular: Regular Rate, Regular Rhythm GI/Abdominal Exam: Normal Bowel Sounds, Soft, Non-Tender, No Distention Skin: Warm, Dry, Intact Sepsis Event Note - Evaluation Sepsis Screening Result: No Definite Risk - Focused Exam Vital Signs: Vital Signs Temp Pulse Resp BP Pulse Ox 09/19/19 11:00 36.3 C 82 16 118/68 97 09/19/19 07:20 36.3 C 87 16 101/61 91 L 09/19/19 04:00 36.4 C 84 16 138/63 93 L Date Exam was Performed: 09/19/19 Time Exam was Performed: 13:31 - Problem List Review Problem List Initiated/Reviewed/Updated: Yes - My Orders Last 24 Hours: My Active Orders 09/18/19 21:25 Morphine 2 mg IVPUSH Q3H PRN 09/18/19 21:30 Sodium Chloride 0.9% [Normal Saline] 1,000 ml IV ASDIRECTED 09/18/19 23:34 Antiembolic Devices [RC] PER UNIT ROUTINE Oxygen Therapy [RC] PRN Up ad Felicity [RC] ASDIRECTED VTE/DVT Education [RC] PER UNIT ROUTINE Vital Signs [RC] Q4H Sequential Compression Device [OM.PC] Per Unit Routine Resuscitation Status Routine 09/19/19 09:58 Ondansetron [Zofran] 4 mg IVPUSH Q4H PRN 09/19/19 13:30 Heparin Sodium 5,000 units SUBCUT Q8H Sodium Chloride 0.9% with KCl 40 mEq @ Enter Rate (1000 mL) Sodium Chloride 0.9 % with KCl [Normal Saline with 40 mEq KCl] 1,000 ml IV ASDIRECTED 09/19/19 Breakfast NPO [Nothing Per Oral Diet] [DIET] 09/20/19 05:11 BASIC METABOLIC PANEL,BMP [CHEM] AM CBC WITH AUTO DIFF [HEME] AM - Plan Plan:: 58 yo female with partial bowel obstruction. Dr. Maldonado has been consulted. We will continue bowel rest with IV fluids. Patient reports improvement in nausea, passing gas but no stool.
[2019-09-19] MEDS: Heparin Sodium 5,000 Units/ML Vial SUBCUT SCH ×2 (14:11→21:10)
[2019-09-19] MEDS ORDERED: Acetaminophen 325 MG Tab PO PRN (16:15)
[2019-09-20] MEDS: Ondansetron 4 MG/2 ML SDV IVPUSH PRN (01:50)
[2019-09-20] MEDS: Heparin Sodium 5,000 Units/ML Vial SUBCUT SCH ×2 (05:01→12:40)
[2019-09-20] MEDS: Sodium Chloride 0.9% 1,000 ML IV SCH (05:01)
[2019-09-20] MEDS: ALPRAZolam 0.5 MG Tab PO PRN ×2 (05:10→15:27)
[2019-09-20 06:16] LABS: BLOOD UREA NITROGEN,BUN 8 mg/dL (7.0-18.0); CARBON DIOXIDE,CO2 20.7 mmol/L (21.0-32.0); CHLORIDE,CL 104 mmol/L (98-107); POTASSIUM,K 3.9 mmol/L (3.5-5.1); SODIUM,NA 140 mmol/L (136-145)
[2019-09-20 06:22] LABS: GLUCOSE RANDOM 38 mg/dL (74-106)
[2019-09-20] MEDS ORDERED: 50% Dextrose in Water 50 ML Syringe ONE (06:23)
[2019-09-20] MEDS ORDERED: 50% Dextrose in Water 50 ML Syringe IVPUSH STA (06:27)
[2019-09-20] MEDS ORDERED: Dextrose 5%-0.45% NaCl 1,000 ML IV SCH (06:30)
--- NOTE | 2019-09-20 09:14 | PCM.CONSN ---
- General Info Date of Service: 09/20/19 Functional Status: Reports: Pain Controlled, Tolerating Diet, Other (Ostomy started having liquid stool output this morning. Her blood glose this morning was very low. ) - Review of Systems General: Reports: No Symptoms HEENT: Reports: No Symptoms Pulmonary: Reports: No Symptoms Cardiovascular: Reports: No Symptoms Gastrointestinal: Reports: No Symptoms - Patient Data Vitals - Most Recent: Last Vital Signs Temp 35.7 C 09/20/19 07:00 Pulse 82 09/20/19 07:00 Resp 14 09/20/19 07:00 BP 91/51 L 09/20/19 07:00 Pulse Ox 94 L 09/20/19 07:00 Weight - Most Recent: 59.7 kg I&O - Last 24 Hours: Intake & Output 09/19/19 09/20/19 09/20/19 22:59 06:59 14:59 Intake Total 1433 1653 Output Total 800 1250 Balance 633 403 Lab Results Last 24 Hours: Laboratory Results - last 24 hr 09/20/19 09/20/19 09/20/19 Range/Units 05:35 05:35 06:28 WBC 7.32 (4.0-11.0) K/uL RBC 4.41 (4.30-5.90) M/uL Hgb 12.1 (12.0-16.0) g/dL Hct 39.2 (36.0-46.0) % MCV 88.9 (80.0-98.0) fL MCH 27.4 (27.0-32.0) pg MCHC 30.9 L (31.0-37.0) g/dL RDW Std Deviation 50.3 (28.0-62.0) fl RDW Coeff of Shaq 15 (11.0-15.0) % Plt Count 190 (150-400) K/uL MPV 10.50 (7.40-12.00) fL Neut % (Auto) 55.1 (48.0-80.0) % Lymph % (Auto) 35.8 (16.0-40.0) % [place] % (Auto) 7.9 (0.0-15.0) % Eos % (Auto) 0.8 (0.0-7.0) % Baso % (Auto) 0.4 (0.0-1.5) % Neut # (Auto) 4.0 (1.4-5.7) K/uL Lymph # (Auto) 2.6 H (0.6-2.4) K/uL [place] # (Auto) 0.6 (0.0-0.8) K/uL Eos # (Auto) 0.1 (0.0-0.7) K/uL Baso # (Auto) 0.0 (0.0-0.1) K/uL Nucleated RBC % 0.0 /100WBC Nucleated RBCs # 0 K/uL Sodium 140 (136-145) mmol/L Potassium 3.9 (3.5-5.1) mmol/L Chloride 104 (98-107) mmol/L Carbon Dioxide 20.7 L (21.0-32.0) mmol/L BUN 8 (7.0-18.0) mg/dL Creatinine 0.5 L (0.6-1.0) mg/dL Est Cr Clr Drug Dosing 112.77 mL/min Estimated GFR (MDRD) > 60.0 ml/min Glucose 38 L* (74-106) mg/dL POC Glucose 32 L (60-110) mg/dL Calcium 8.6 (8.5-10.1) mg/dL 09/20/19 Range/Units 06:40 WBC (4.0-11.0) K/uL RBC (4.30-5.90) M/uL Hgb (12.0-16.0) g/dL Hct (36.0-46.0) % MCV (80.0-98.0) fL MCH (27.0-32.0) pg MCHC (31.0-37.0) g/dL RDW Std Deviation (28.0-62.0) fl RDW Coeff of Shaq (11.0-15.0) % Plt Count (150-400) K/uL MPV (7.40-12.00) fL Neut % (Auto) (48.0-80.0) % Lymph % (Auto) (16.0-40.0) % [place] % (Auto) (0.0-15.0) % Eos % (Auto) (0.0-7.0) % Baso % (Auto) (0.0-1.5) % Neut # (Auto) (1.4-5.7) K/uL Lymph # (Auto) (0.6-2.4) K/uL [place] # (Auto) (0.0-0.8) K/uL Eos # (Auto) (0.0-0.7) K/uL Baso # (Auto) (0.0-0.1) K/uL Nucleated RBC % /100WBC Nucleated RBCs # K/uL Sodium (136-145) mmol/L Potassium (3.5-5.1) mmol/L Chloride (98-107) mmol/L Carbon Dioxide (21.0-32.0) mmol/L BUN (7.0-18.0) mg/dL Creatinine (0.6-1.0) mg/dL Est Cr Clr Drug Dosing mL/min Estimated GFR (MDRD) ml/min Glucose (74-106) mg/dL POC Glucose 205 H (60-110) mg/dL Calcium (8.5-10.1) mg/dL Med Orders - Current: Current Medications Acetaminophen (Tylenol) 650 mg PO Q6H PRN PRN Reason: Headache Last Admin: 09/19/19 16:46 Dose: 650 mg Alprazolam (Xanax) 2 mg PO TID PRN PRN Reason: Anxiety Last Admin: 09/20/19 05:10 Dose: 2 mg Heparin Sodium (Porcine) (Heparin Sodium) 5,000 units SUBCUT Q8H [facility] Last Admin: 09/20/19 05:01 Dose: 5,000 units Dextrose/Sodium Chloride (Dextrose 5%-1/2 Ns) 1,000 mls @ 125 mls/hr IV ASDIRECTED [facility] Last Admin: 09/20/19 06:33 Dose: 125 mls/hr Morphine Sulfate (Morphine) 2 mg IVPUSH Q3H PRN PRN Reason: Pain Ondansetron HCl (Zofran) 4 mg IVPUSH Q4H PRN PRN Reason: Nausea/Vomiting Last Admin: 09/20/19 01:50 Dose: 4 mg Discontinued Medications Dextrose/Water (Dextrose 50% In Water) Confirm Administered Dose 50 ml .ROUTE .STK-MED ONE Stop: 09/20/19 06:24 Last Admin: 09/20/19 06:33 Dose: 50 ml Dextrose/Water (Dextrose 50% In Water) 50 ml IVPUSH ONETIME STA Stop: 09/20/19 06:28 Last Admin: 09/20/19 06:36 Dose: Not Given Sodium Chloride (Normal Saline) 1,000 mls @ 1,000 mls/hr IV .Bolus ONE Stop: 09/18/19 19:02 Last Admin: 09/18/19 18:25 Dose: 1,000 mls/hr Sodium Chloride (Normal Saline) 1,000 mls @ 999 mls/hr IV .BOLUS ONE Stop: 09/18/19 21:23 Last Admin: 09/18/19 20:39 Dose: 999 mls/hr Sodium Chloride (Normal Saline) 1,000 mls @ 125 mls/hr IV ASDIRECTED [facility] Last Admin: 09/20/19 05:01 Dose: 125 mls/hr Potassium Chloride/Sodium Chloride (Normal Saline With 40 Meq Kcl) 1,000 mls @ 150 mls/hr IV ASDIRECTED [facility]ARA Stop: 09/19/19 20:09 Last Admin: 09/19/19 14:05 Dose: 150 mls/hr Iopamidol (Isovue Multipack-370 (76%)) 100 ml IVPUSH ONETIME ONE Stop: 09/18/19 19:10 Last Admin: 09/18/19 19:10 Dose: 100 ml Ondansetron HCl (Zofran) 4 mg IVPUSH ONETIME ONE Stop: 09/18/19 18:04 Last Admin: 09/18/19 18:26 Dose: 4 mg Ondansetron HCl (Zofran Odt) 4 mg PO ONETIME ONE Stop: 09/18/19 20:31 Last Admin: 09/18/19 20:39 Dose: 4 mg - Exam General: Alert, Oriented, Cooperative HEENT: Pupils Equal Lungs: Normal Respiratory Effort Cardiovascular: Regular Rate GI/Abdominal Exam: Soft, Non-Tender, No Distention, Other (Ostomy pink with liquid stool in bag. No tenderness around the area. ) Sepsis Event Note - Evaluation Sepsis Screening Result: No Definite Risk - Focused Exam Vital Signs: Vital Signs Temp Temp Pulse Resp BP BP Pulse Ox 09/20/19 07:00 35.7 C 82 14 91/51 L 94 L 09/20/19 03:54 36.1 C 82 20 119/63 95 09/20/19 02:35 35.6 C 92 98/55 L 94 L 09/20/19 02:00 107/50 L 09/20/19 01:52 35.7 C 37.2 C 98 20 96/52 L 96 09/20/19 00:15 36.1 C 71 16 102/57 L 92 L Date Exam was Performed: 09/20/19 Time Exam was Performed: 09:10 Consult PN Assessment/Plan Procedures: Procedures AIRWAY INHALATION TREATMENT (11/07/18) ANTINUCLEAR ANTIBODIES (10/25/16) ASSAY OF AMYLASE (07/14/17) ASSAY OF LACTIC ACID (05/29/18) ASSAY OF LIPASE (07/11/19) ASSAY OF TROPONIN QUANT (05/29/18) BLOOD CULTURE FOR BACTERIA (07/11/19) BLOOD GASES ANY COMBINATION (11/07/18) COMPLETE CBC W/AUTO DIFF WBC (07/11/19) COMPREHEN METABOLIC PANEL (07/11/19) CT ABD & PELVIS W/O CONTRAST (09/02/19) CULTURE AEROBIC IDENTIFY (11/07/18) CULTURE OTHR SPECIMN AEROBIC (11/07/18) ECHO EXAM OF ABDOMEN (10/10/17) ELECTROCARDIOGRAM TRACING (05/29/18) EMERGENCY DEPT VISIT (07/11/19) EMERGENCY DEPT VISIT (05/29/18) GLUCOSE BLOOD TEST (05/29/18) HEPATITIS C AB TEST (03/04/19) HYDRATE IV INFUSION ADD-ON (07/11/19) IIV4 VACC NO PRSV 0.5 ML IM (05/29/18) INFLUENZA ASSAY W/OPTIC (11/07/18) LIPID PANEL (05/31/19) METABOLIC PANEL TOTAL CA (05/29/18) MICROBE SUSCEPTIBLE JEFFRY (11/07/18) PPSV23 VACC 2 YRS+ SUBQ/IM (05/29/18) RBC SED RATE AUTOMATED (10/25/16) RHEUMATOID FACTOR TEST QUAL (10/25/16) ROUTINE VENIPUNCTURE (07/11/19) SMEAR GRAM STAIN (11/07/18) THER/PROPH/DIAG INJ IV PUSH (11/07/18) THER/PROPH/DIAG INJ SC/IM (05/29/18) THER/PROPH/DIAG IV INF ADDON (05/29/18) THER/PROPH/DIAG IV INF INIT (07/11/19) TX/PRO/DX INJ NEW DRUG ADDON (07/11/19) TX/PRO/DX INJ SAME DRUG DIRECTOR CRAFT CENTER (05/29/18) URINALYSIS AUTO W/O SCOPE (07/11/19) URINALYSIS AUTO W/SCOPE (05/29/18) URINE CULTURE/COLONY COUNT (05/29/18) WITHDRAWAL OF ARTERIAL BLOOD (11/07/18) X-RAY EXAM ABDOMEN 1 VIEW (10/27/17) X-RAY EXAM CHEST 1 VIEW (11/07/18) X-RAY XM COLON 2CNTRST STD (11/11/17) X-RAY XM UPR GI TRC 1CNTRST (10/17/17) (1) Parastomal hernia SNOMED Code(s): 088814263 Code(s): K43.5 - PARASTOMAL HERNIA WITHOUT OBSTRUCTION OR GANGRENE Current Visit: Yes (2) Partial bowel obstruction SNOMED Code(s): 44109967722458808 Code(s): K56.600 - PARTIAL INTESTINAL OBSTRUCTION, UNSPECIFIED TO CAUSE Current Visit: Yes Problem List Initiated/Reviewed/Updated: Yes My Orders Last 24 Hours: My Active Orders 09/19/19 10:13 ALPRAZolam [Xanax] 2 mg PO TID PRN 09/20/19 Breakfast Clear Liquid Diet [DIET] Plan: Patient is a 58 year old female who has a resolving pSBO due to her parastomal hernia. She will need to follow up with either her primary surgeon in [place] or a colorectal surgeon in [place]. Will have my nurse arrange this today. Ok to have clears this morning advance to full liquid at lunch if tolerating and regular tonight. If tolerates regular diet can be discharged home.
--- NOTE | 2019-09-20 09:35 | PCM.PN ---
- General Info Date of Service: 09/20/19 Admission Dx/Problem (Free Text): Admission Diagnosis/Problem Admission Diagnosis/Problem Obstruction of colon Subjective Update: feeling improved today. Liquid stool in ostomy bag this morning. Noted to have significant hypoglycemia this morning, asymptomatic. D51/2 NS started, improved with D 50 as well. No abdominal pain. No nausea or vomiting. Dr Maldonado advanced diet to CL. Functional Status: Reports: Pain Controlled, Ambulating, Urinating - Review of Systems Pulmonary: Reports: No Symptoms. Denies: Shortness of Breath Cardiovascular: Reports: No Symptoms. Denies: Chest Pain Gastrointestinal: Reports: No Symptoms, Flatus (gas in ostomy with liquid stool) . Denies: Abdominal Pain, Nausea, Vomiting Genitourinary: Reports: No Symptoms Musculoskeletal: Reports: No Symptoms Skin: Reports: No Symptoms Neurological: Reports: No Symptoms Psychiatric: Reports: No Symptoms - Patient Data Vitals - Most Recent: Last Vital Signs Temp 96.3 F 09/20/19 07:00 Pulse 82 09/20/19 07:00 Resp 14 09/20/19 07:00 BP 91/51 L 09/20/19 07:00 Pulse Ox 94 L 09/20/19 07:00 Weight - Most Recent: 59.7 kg I&O - Last 24 Hours: Intake & Output 09/19/19 09/20/19 09/20/19 22:59 06:59 14:59 Intake Total 1433 1653 Output Total 800 1250 Balance 633 403 Lab Results Last 24 Hours: Laboratory Results - last 24 hr 09/20/19 09/20/19 09/20/19 Range/Units 05:35 05:35 06:28 WBC 7.32 (4.0-11.0) K/uL RBC 4.41 (4.30-5.90) M/uL Hgb 12.1 (12.0-16.0) g/dL Hct 39.2 (36.0-46.0) % MCV 88.9 (80.0-98.0) fL MCH 27.4 (27.0-32.0) pg MCHC 30.9 L (31.0-37.0) g/dL RDW Std Deviation 50.3 (28.0-62.0) fl RDW Coeff of Shaq 15 (11.0-15.0) % Plt Count 190 (150-400) K/uL MPV 10.50 (7.40-12.00) fL Neut % (Auto) 55.1 (48.0-80.0) % Lymph % (Auto) 35.8 (16.0-40.0) % [place] % (Auto) 7.9 (0.0-15.0) % Eos % (Auto) 0.8 (0.0-7.0) % Baso % (Auto) 0.4 (0.0-1.5) % Neut # (Auto) 4.0 (1.4-5.7) K/uL Lymph # (Auto) 2.6 H (0.6-2.4) K/uL [place] # (Auto) 0.6 (0.0-0.8) K/uL Eos # (Auto) 0.1 (0.0-0.7) K/uL Baso # (Auto) 0.0 (0.0-0.1) K/uL Nucleated RBC % 0.0 /100WBC Nucleated RBCs # 0 K/uL Sodium 140 (136-145) mmol/L Potassium 3.9 (3.5-5.1) mmol/L Chloride 104 (98-107) mmol/L Carbon Dioxide 20.7 L (21.0-32.0) mmol/L BUN 8 (7.0-18.0) mg/dL Creatinine 0.5 L (0.6-1.0) mg/dL Est Cr Clr Drug Dosing 112.77 mL/min Estimated GFR (MDRD) > 60.0 ml/min Glucose 38 L* (74-106) mg/dL POC Glucose 32 L (60-110) mg/dL Calcium 8.6 (8.5-10.1) mg/dL 09/20/19 Range/Units 06:40 WBC (4.0-11.0) K/uL RBC (4.30-5.90) M/uL Hgb (12.0-16.0) g/dL Hct (36.0-46.0) % MCV (80.0-98.0) fL MCH (27.0-32.0) pg MCHC (31.0-37.0) g/dL RDW Std Deviation (28.0-62.0) fl RDW Coeff of Shaq (11.0-15.0) % Plt Count (150-400) K/uL MPV (7.40-12.00) fL Neut % (Auto) (48.0-80.0) % Lymph % (Auto) (16.0-40.0) % [place] % (Auto) (0.0-15.0) % Eos % (Auto) (0.0-7.0) % Baso % (Auto) (0.0-1.5) % Neut # (Auto) (1.4-5.7) K/uL Lymph # (Auto) (0.6-2.4) K/uL [place] # (Auto) (0.0-0.8) K/uL Eos # (Auto) (0.0-0.7) K/uL Baso # (Auto) (0.0-0.1) K/uL Nucleated RBC % /100WBC Nucleated RBCs # K/uL Sodium (136-145) mmol/L Potassium (3.5-5.1) mmol/L Chloride (98-107) mmol/L Carbon Dioxide (21.0-32.0) mmol/L BUN (7.0-18.0) mg/dL Creatinine (0.6-1.0) mg/dL Est Cr Clr Drug Dosing mL/min Estimated GFR (MDRD) ml/min Glucose (74-106) mg/dL POC Glucose 205 H (60-110) mg/dL Calcium (8.5-10.1) mg/dL Med Orders - Current: Current Medications Acetaminophen (Tylenol) 650 mg PO Q6H PRN PRN Reason: Headache Last Admin: 09/19/19 16:46 Dose: 650 mg Alprazolam (Xanax) 2 mg PO TID PRN PRN Reason: Anxiety Last Admin: 09/20/19 05:10 Dose: 2 mg Heparin Sodium (Porcine) (Heparin Sodium) 5,000 units SUBCUT Q8H [facility] Last Admin: 09/20/19 05:01 Dose: 5,000 units Dextrose/Sodium Chloride (Dextrose 5%-1/2 Ns) 1,000 mls @ 125 mls/hr IV ASDIRECTED [facility] Last Admin: 09/20/19 06:33 Dose: 125 mls/hr Morphine Sulfate (Morphine) 2 mg IVPUSH Q3H PRN PRN Reason: Pain Ondansetron HCl (Zofran) 4 mg IVPUSH Q4H PRN PRN Reason: Nausea/Vomiting Last Admin: 09/20/19 01:50 Dose: 4 mg Discontinued Medications Dextrose/Water (Dextrose 50% In Water) Confirm Administered Dose 50 ml .ROUTE .STK-MED ONE Stop: 09/20/19 06:24 Last Admin: 09/20/19 06:33 Dose: 50 ml Dextrose/Water (Dextrose 50% In Water) 50 ml IVPUSH ONETIME STA Stop: 09/20/19 06:28 Last Admin: 09/20/19 06:36 Dose: Not Given Sodium Chloride (Normal Saline) 1,000 mls @ 1,000 mls/hr IV .Bolus ONE Stop: 09/18/19 19:02 Last Admin: 09/18/19 18:25 Dose: 1,000 mls/hr Sodium Chloride (Normal Saline) 1,000 mls @ 999 mls/hr IV .BOLUS ONE Stop: 09/18/19 21:23 Last Admin: 09/18/19 20:39 Dose: 999 mls/hr Sodium Chloride (Normal Saline) 1,000 mls @ 125 mls/hr IV ASDIRECTED [facility] Last Admin: 09/20/19 05:01 Dose: 125 mls/hr Potassium Chloride/Sodium Chloride (Normal Saline With 40 Meq Kcl) 1,000 mls @ 150 mls/hr IV ASDIRECTED [facility] Stop: 09/19/19 20:09 Last Admin: 09/19/19 14:05 Dose: 150 mls/hr Iopamidol (Isovue Multipack-370 (76%)) 100 ml IVPUSH ONETIME ONE Stop: 09/18/19 19:10 Last Admin: 09/18/19 19:10 Dose: 100 ml Ondansetron HCl (Zofran) 4 mg IVPUSH ONETIME ONE Stop: 09/18/19 18:04 Last Admin: 09/18/19 18:26 Dose: 4 mg Ondansetron HCl (Zofran Odt) 4 mg PO ONETIME ONE Stop: 09/18/19 20:31 Last Admin: 09/18/19 20:39 Dose: 4 mg - Exam General: Alert, Oriented, Cooperative Lungs: Clear to Auscultation, Normal Respiratory Effort Cardiovascular: Regular Rate, Regular Rhythm GI/Abdominal Exam: Normal Bowel Sounds, Soft, Non-Tender, Other (ostomy intact, peristomal hernia noted. LIquid stool and gas in ostomy bag.) Extremities: Normal Inspection, Normal Range of Motion, Non-Tender, No Pedal Edema Neurological: No New Focal Deficit Psy/Mental Status: Alert, Normal Affect, Normal Mood Sepsis Event Note - Evaluation Sepsis Screening Result: No Definite Risk - Focused Exam Vital Signs: Vital Signs Temp Temp Pulse Resp BP BP Pulse Ox 09/20/19 07:00 96.3 F 82 14 91/51 L 94 L 09/20/19 03:54 96.9 F 82 20 119/63 95 09/20/19 02:35 96.1 F 92 98/55 L 94 L 09/20/19 02:00 107/50 L 09/20/19 01:52 96.3 F 99 F 98 20 96/52 L 96 09/20/19 00:15 97 F 71 16 102/57 L 92 L Date Exam was Performed: 09/20/19 Time Exam was Performed: 11:21 - Problem List & Annotations (1) Partial bowel obstruction SNOMED Code(s): 15122278514313830 Code(s): K56.600 - PARTIAL INTESTINAL OBSTRUCTION, UNSPECIFIED TO CAUSE Status: Acute Current Visit: Yes Qualifiers: Intestinal obstruction type: unspecified Qualified Code(s): K56.600 - Partial intestinal obstruction, unspecified as to cause (2) Nausea vomiting and diarrhea SNOMED Code(s): 8798120 Code(s): R11.2 - NAUSEA WITH VOMITING, UNSPECIFIED; R19.7 - DIARRHEA, UNSPECIFIED Status: Acute Current Visit: Yes (3) Parastomal hernia SNOMED Code(s): 194139129 Code(s): K43.5 - PARASTOMAL HERNIA WITHOUT OBSTRUCTION OR GANGRENE Status: Chronic Current Visit: Yes (4) On home oxygen therapy SNOMED Code(s): 331776733442 Code(s): Z99.81 - DEPENDENCE ON SUPPLEMENTAL OXYGEN Status: Chronic Current Visit: Yes (5) COPD (chronic obstructive pulmonary disease) SNOMED Code(s): 84134567 Code(s): J44.9 - CHRONIC OBSTRUCTIVE PULMONARY DISEASE, UNSPECIFIED Status : Chronic Current Visit: Yes - Problem List Review Problem List Initiated/Reviewed/Updated: Yes - Plan Plan:: 58 yo female with partial bowel obstruction. 1. pSBO: Improved. passing liquid stool and gas this morning in ostomy. Dr. Maldonado has been consulted advanced diet to CL this morning, to slow advance today and if tolerates home tomorrow. She will arrange follow up with her surgeon or Colorectal surgeon to follow up with the parastomal hernia. Hypoglycemia noted, monitor as diet is advanced. Consider stopping IVFs. 2. COPD: Oxygen at home with activity, sats if 88-90%. Restart home inhalers. VTE prophylaxis: Heparin. Dispo: 1 day
[2019-09-20] MEDS ORDERED: Budesonide/Formoterol 160-4.5 MCG/Puff 6 GM Inhaler INH SCH ×2 (09:45→10:31)
[2019-09-20] MEDS ORDERED: Albuterol/Ipratropium 4 GM Inhalation Spray INH PRN (13:46)
--- NOTE | 2019-09-20 15:59 | PCM.DCSUM1 ---
Discharge Summary - Hospital Course Brief History: 58 y/o female with history of COPD and complex surgical history which includes colostomy s/p bowel perforation in June who presents to the ED with complaints of nausea and vomiting. PAtient reports two days ago developing nausea and vomiting with diarrhea. She says since then she has had no output from the ostomy. She denies any abdominal pain or fevers. CT scan in the ED reported parastomal hernia with partial bowel obstruction. During my interview patient did have gas coming from colostomy. Diagnosis: Stroke: No - Discharge Data Discharge Date: 09/20/19 Discharge Disposition: Home, W Home Health Agency Condition: Good - Referral to Home Health Date of Face to Face Encounter: 09/20/19 Reason for Homebound Status: Resume Home Health Primary Care Physician: PCP None Skilled Need: Resuming Home Health on discharge. - Discharge Diagnosis/Problem(s) (1) Partial bowel obstruction SNOMED Code(s): 82801109577346382 ICD Code: K56.600 - PARTIAL INTESTINAL OBSTRUCTION, UNSPECIFIED TO CAUSE Status: Acute Current Visit: Yes Qualifiers: Intestinal obstruction type: unspecified Qualified Code(s): K56.600 - Partial intestinal obstruction, unspecified as to cause (2) Nausea vomiting and diarrhea SNOMED Code(s): 2231616 ICD Code: R11.2 - NAUSEA WITH VOMITING, UNSPECIFIED; R19.7 - DIARRHEA, UNSPECIFIED Status: Acute Current Visit: Yes (3) Parastomal hernia SNOMED Code(s): 106781916 ICD Code: K43.5 - PARASTOMAL HERNIA WITHOUT OBSTRUCTION OR GANGRENE Status : Chronic Current Visit: Yes (4) On home oxygen therapy SNOMED Code(s): 282175881330 ICD Code: Z99.81 - DEPENDENCE ON SUPPLEMENTAL OXYGEN Status: Chronic Current Visit: Yes (5) COPD (chronic obstructive pulmonary disease) SNOMED Code(s): 43835900 ICD Code: J44.9 - CHRONIC OBSTRUCTIVE PULMONARY DISEASE, UNSPECIFIED Status : Chronic Current Visit: Yes - Patient Instructions Diet: GI Soft/Low Residue/Low Fiber Activity: As Tolerated, No Strenuous Activities Showering/Bathing: May Shower Notify Provider of: Fever, Increased Pain, Swelling and Redness, Drainage, Nausea and/or Vomiting - Discharge Plan *PRESCRIPTION DRUG MONITORING PROGRAM REVIEWED*: Not Applicable *COPY OF PRESCRIPTION DRUG MONITORING REPORT IN PATIENT CHELSIE: Not Applicable Home Medications: Home Meds ALPRAZolam [Xanax] 2 mg PO TID PRN 05/29/18 [History] Albuterol/Ipratropium [Combivent Respimat] 1 puff IH QID PRN 05/29/18 [History] Budesonide [Pulmicort] 1 dose INH BEDTIME 11/04/18 [History] Fluticasone Propionate [Flonase] 2 puff NASBOTH DAILY 11/04/18 [History] busPIRone [Buspar] 15 mg PO BID 11/04/18 [History] Ondansetron [Zofran ODT] 4 mg PO Q6H PRN 08/04/19 [History] Rosuvastatin [Crestor] 5 mg PO BEDTIME 08/04/19 [History] Budesonide/Formoterol Fumarate [Symbicort 160-4.5 Mcg Inhaler] 6 gm IH BID 30 Days #1 hfa.aer.ad 08/06/19 [Rx] Iron Polysaccharides Complex [Ferrex 150] 150 mg PO DAILY #30 cap 08/06/19 [Rx] Docusate Sodium [Colace] 100 mg PO BID 09/18/19 [History] Oxygen Therapy Mode: Nasal Cannula Oxygen Flow Rate (L/min): 1 (with activity, per previous home orders.) Patient Handouts: Small Bowel Obstruction, [id number] Referrals: Yaw Loza MD [Physician] - 09/28/19 8:30 am - Discharge Summary/Plan Comment DC Time >30 min.: No Discharge Summary/Plan Comment: Admitting Diagnoses PSBO abdominal pain N/V Colostomy Discharge Diagnoses: PSBO, resolved. Parastomal hernia Other PMH: COPD Oxygen dependent with activity Nithya was admitted and treated with bowel rest and IVFs after consultation with General surgery regarding PSBO and parastomal hernia. She continued to have gas in colostomy during stay and this morning, started having liquid to semi formed stool. She is tolerating CL then advance to soft regular this afternoon. No abdominal pain or bloating. No nausea or vomiting. She is requesting discharge. I discussed stools and tolerating diet with Dr Maldonado. She is ok with discharge home. She has arrange follow up for Nithya with Colorectal surgeon regarding parastomal hernia and recent SBO. Nithya was counseled on this and she is aware of follow up appointment next week. She was also counseled on soft low residue diet for the next few days. Encouraged hydration. She was encouraged to return to the ED or clinic if concerns should arise. Continue all home medications as previously prescribed. - General Info Date of Service: 09/20/19 Subjective Update: Doing well after advancing diet to regular. liquid to semi formed stool noted in colostomy. No pain or N/V. Asking to go home. - Patient Data Vitals - Most Recent: Last Vital Signs Temp 98.2 F 09/20/19 11:00 Pulse 79 09/20/19 11:00 Resp 18 09/20/19 11:00 BP 135/60 09/20/19 11:00 Pulse Ox 96 09/20/19 11:00 Weight - Most Recent: 59.7 kg I&O - Last 24 hours: Intake & Output 09/20/19 09/20/19 09/20/19 06:59 14:59 22:59 Intake Total 1653 Output Total 1250 Balance 403 Lab Results - Last 24 hrs: Laboratory Results - last 24 hr 09/20/19 09/20/19 09/20/19 Range/Units 05:35 05:35 06:28 WBC 7.32 (4.0-11.0) K/uL RBC 4.41 (4.30-5.90) M/uL Hgb 12.1 (12.0-16.0) g/dL Hct 39.2 (36.0-46.0) % MCV 88.9 (80.0-98.0) fL MCH 27.4 (27.0-32.0) pg MCHC 30.9 L (31.0-37.0) g/dL RDW Std Deviation 50.3 (28.0-62.0) fl RDW Coeff of Shaq 15 (11.0-15.0) % Plt Count 190 (150-400) K/uL MPV 10.50 (7.40-12.00) fL Neut % (Auto) 55.1 (48.0-80.0) % Lymph % (Auto) 35.8 (16.0-40.0) % [place] % (Auto) 7.9 (0.0-15.0) % Eos % (Auto) 0.8 (0.0-7.0) % Baso % (Auto) 0.4 (0.0-1.5) % Neut # (Auto) 4.0 (1.4-5.7) K/uL Lymph # (Auto) 2.6 H (0.6-2.4) K/uL [place] # (Auto) 0.6 (0.0-0.8) K/uL Eos # (Auto) 0.1 (0.0-0.7) K/uL Baso # (Auto) 0.0 (0.0-0.1) K/uL Nucleated RBC % 0.0 /100WBC Nucleated RBCs # 0 K/uL Sodium 140 (136-145) mmol/L Potassium 3.9 (3.5-5.1) mmol/L Chloride 104 (98-107) mmol/L Carbon Dioxide 20.7 L (21.0-32.0) mmol/L BUN 8 (7.0-18.0) mg/dL Creatinine 0.5 L (0.6-1.0) mg/dL Est Cr Clr Drug Dosing 112.77 mL/min Estimated GFR (MDRD) > 60.0 ml/min Glucose 38 L* (74-106) mg/dL POC Glucose 32 L (60-110) mg/dL Calcium 8.6 (8.5-10.1) mg/dL 09/20/19 09/20/19 Range/Units 06:40 09:41 WBC (4.0-11.0) K/uL RBC (4.30-5.90) M/uL Hgb (12.0-16.0) g/dL Hct (36.0-46.0) % MCV (80.0-98.0) fL MCH (27.0-32.0) pg MCHC (31.0-37.0) g/dL RDW Std Deviation (28.0-62.0) fl RDW Coeff of Shaq (11.0-15.0) % Plt Count (150-400) K/uL MPV (7.40-12.00) fL Neut % (Auto) (48.0-80.0) % Lymph % (Auto) (16.0-40.0) % [place] % (Auto) (0.0-15.0) % Eos % (Auto) (0.0-7.0) % Baso % (Auto) (0.0-1.5) % Neut # (Auto) (1.4-5.7) K/uL Lymph # (Auto) (0.6-2.4) K/uL [place] # (Auto) (0.0-0.8) K/uL Eos # (Auto) (0.0-0.7) K/uL Baso # (Auto) (0.0-0.1) K/uL Nucleated RBC % /100WBC Nucleated RBCs # K/uL Sodium (136-145) mmol/L Potassium (3.5-5.1) mmol/L Chloride (98-107) mmol/L Carbon Dioxide (21.0-32.0) mmol/L BUN (7.0-18.0) mg/dL Creatinine (0.6-1.0) mg/dL Est Cr Clr Drug Dosing mL/min Estimated GFR (MDRD) ml/min Glucose (74-106) mg/dL POC Glucose 205 H 186 H (60-110) mg/dL Calcium (8.5-10.1) mg/dL Med Orders - Current: Current Medications Acetaminophen (Tylenol) 650 mg PO Q6H PRN PRN Reason: Headache Last Admin: 09/19/19 16:46 Dose: 650 mg Albuterol/Ipratropium (Combivent Respimat) 0 gm INH QID PRN PRN Reason: Shortness of Breath Alprazolam (Xanax) 2 mg PO TID PRN PRN Reason: Anxiety Last Admin: 09/20/19 15:27 Dose: 2 mg Budesonide (Pulmicort) 0.5 mg INH BEDTIME CLARA Heparin Sodium (Porcine) (Heparin Sodium) 5,000 units SUBCUT Q8H CLARA Last Admin: 09/20/19 12:40 Dose: 5,000 units Morphine Sulfate (Morphine) 2 mg IVPUSH Q3H PRN PRN Reason: Pain Ondansetron HCl (Zofran) 4 mg IVPUSH Q4H PRN PRN Reason: Nausea/Vomiting Last Admin: 09/20/19 01:50 Dose: 4 mg Budesonide/Formoterol 160-4.5 Mcg/Puff 6 Gm Inhaler 0 each INH BID CLARA Last Admin: 09/20/19 11:41 Dose: 1 each Discontinued Medications Budesonide/Formoterol Fumarate (Symbicort 160-4.5 Mcg) 0 gm INH BID [facility] Last Admin: 09/20/19 12:54 Dose: Not Given Dextrose/Water (Dextrose 50% In Water) Confirm Administered Dose 50 ml .ROUTE .STK-MED ONE Stop: 09/20/19 06:24 Last Admin: 09/20/19 06:33 Dose: 50 ml Dextrose/Water (Dextrose 50% In Water) 50 ml IVPUSH ONETIME STA Stop: 09/20/19 06:28 Last Admin: 09/20/19 06:36 Dose: Not Given Sodium Chloride (Normal Saline) 1,000 mls @ 1,000 mls/hr IV .Bolus ONE Stop: 09/18/19 19:02 Last Admin: 09/18/19 18:25 Dose: 1,000 mls/hr Sodium Chloride (Normal Saline) 1,000 mls @ 999 mls/hr IV .BOLUS ONE Stop: 09/18/19 21:23 Last Admin: 09/18/19 20:39 Dose: 999 mls/hr Sodium Chloride (Normal Saline) 1,000 mls @ 125 mls/hr IV ASDIRECTED [facility] Last Admin: 09/20/19 05:01 Dose: 125 mls/hr Potassium Chloride/Sodium Chloride (Normal Saline With 40 Meq Kcl) 1,000 mls @ 150 mls/hr IV ASDIRECTED [facility] Stop: 09/19/19 20:09 Last Admin: 09/19/19 14:05 Dose: 150 mls/hr Dextrose/Sodium Chloride (Dextrose 5%-1/2 Ns) 1,000 mls @ 125 mls/hr IV ASDIRECTED [facility] Last Admin: 09/20/19 06:33 Dose: 125 mls/hr Iopamidol (Isovue Multipack-370 (76%)) 100 ml IVPUSH ONETIME ONE Stop: 09/18/19 19:10 Last Admin: 09/18/19 19:10 Dose: 100 ml Ondansetron HCl (Zofran) 4 mg IVPUSH ONETIME ONE Stop: 09/18/19 18:04 Last Admin: 09/18/19 18:26 Dose: 4 mg Ondansetron HCl (Zofran Odt) 4 mg PO ONETIME ONE Stop: 09/18/19 20:31 Last Admin: 09/18/19 20:39 Dose: 4 mg
[2019-09-20] MEDS ORDERED: Budesonide 0.5 MG/2 ML Neb Susp INH SCH (21:00)
== END 2019-09-20 19:00 | disposition home health service (06) ==
LOC: MW.ED 17:24 → MW.MS 20:33
PROVIDERS: ADMIT Internal Medicine; ATTEND Internal Medicine
DX: K56.600 Partial intestinal obstruction, unspecified as to cause (principal); K43.5 Parastomal hernia without obstruction or gangrene; J43.9 Emphysema, unspecified; F41.0 Panic disorder [episodic paroxysmal anxiety]; M19.90 Unspecified osteoarthritis, unspecified site; Z93.3 Colostomy status; Z87.19 Personal history of other diseases of the digestive system; Z99.81 Dependence on supplemental oxygen; Z79.899 Other long term (current) drug therapy; Z79.51 Long term (current) use of inhaled steroids; Z87.891 Personal history of nicotine dependence
CPT/HCPCS: 36415; 74177; 80048; 80053; 81001; 82962; 83605; 85025; 87804; 96361; 96372; 96374; 96376; 99285; A9270; G0378; J1644; J2405; J3480; J7030; J7042; Q9967; 99283

== ENCOUNTER 2019-09-24 15:15 | Observation (INO) | payer BC, MEDICARE ==
--- NOTE | 2019-09-24 16:45 | EDM.PDOC ---
ED HPI GENERAL MEDICAL PROBLEM - General Chief Complaint: Gastrointestinal Problem Stated Complaint: SICK Time Seen by Provider: 09/24/19 16:44 Source of Information: Reports: Patient History Limitations: Reports: No Limitations - History of Present Illness INITIAL COMMENTS - FREE TEXT/NARRATIVE: She has a 58-year-old female who is well-known to me since I admitted her last week for the same symptoms. Patient has an ileostomy and was having decreased output and came in because she felt dehydrated. She states she has been unable to eat or drink for the last 3 days secondary to nausea. She denies any vomiting. She denies any fever or chills dysuria or hematuria. She denies any hematochezia. She is feeling somewhat lightheaded with standing. Patient was noted with her recent admission to have partial small bowel obstruction. She states she was doing better and was discharged home 4 days ago and started getting worse 3 days ago. Onset: Gradual Duration: Day(s): (He) Location: Reports: Abdomen Quality: Reports: Ache, Dull Severity: Mild Improves with: Reports: None Worsens with: Reports: Eating Associated Symptoms: Reports: No Other Symptoms left upper abd Pain Score (Numeric/FACES): 1 - Related Data Allergies Allergy/AdvReac Type Severity Reaction Status Date / Time No Known Allergies Allergy Verified 09/24/19 16:07 Home Meds: Home Meds ALPRAZolam [Xanax] 2 mg PO TID PRN 05/29/18 [History] Albuterol/Ipratropium [Combivent Respimat] 1 puff IH QID PRN 05/29/18 [History] Budesonide [Pulmicort] 1 dose INH BEDTIME 11/04/18 [History] Fluticasone Propionate [Flonase] 2 puff NASBOTH DAILY 11/04/18 [History] busPIRone [Buspar] 15 mg PO BID 11/04/18 [History] Ondansetron [Zofran ODT] 4 mg PO Q6H PRN 08/04/19 [History] Rosuvastatin [Crestor] 5 mg PO BEDTIME 08/04/19 [History] Budesonide/Formoterol Fumarate [Symbicort 160-4.5 Mcg Inhaler] 6 gm IH BID 30 Days #1 hfa.aer.ad 08/06/19 [Rx] Iron Polysaccharides Complex [Ferrex 150] 150 mg PO DAILY #30 cap 08/06/19 [Rx] Docusate Sodium [Colace] 100 mg PO BID 09/18/19 [History] Past Medical History HEENT History: Reports: None Cardiovascular History: Reports: Heart Murmur, Other (See Below) 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 Respiratory History: Reports: COPD, Other (See Below) Other Respiratory History: emphsyema Gastrointestinal History: Reports: Bowel Obstruction Other Gastrointestinal History: Bowel obstruction 2010, 2018, perforated colon in 2018 Genitourinary History: Reports: None [employer] History: Reports: Musculoskeletal History: Reports: Arthritis Neurological History: Reports: None Psychiatric History: Reports: Anxiety, Depression, Panic Attack Endocrine/Metabolic History: Reports: None Hematologic History: Reports: Blood Transfusion(s) Immunologic History: Reports: None Oncologic (Cancer) History: Reports: None Dermatologic History: Reports: None - Infectious Disease History Infectious Disease History: Reports: Chicken Pox, Measles, Mumps - Past Surgical History Head Surgeries/Procedures: Reports: None HEENT Surgical History: Reports: Tonsillectomy Cardiovascular Surgical History: Reports: Cardiac Ablation Other Cardiovascular Surgeries/Procedures: Cardiac ablation in 1991 Respiratory Surgical History: Reports: None GI Surgical History: Reports: Appendectomy, Colostomy, Other (See Below) Female Surgical History: Reports: Section, Tubal Ligation Endocrine Surgical History: Reports: None Neurological Surgical History: Reports: None Musculoskeletal Surgical History: Reports: None Oncologic Surgical History: Reports: None Dermatological Surgical History: Reports: None Social & Family History - Family History Family Medical History: Noncontributory - Tobacco Use Smoking Status *Q: Never Smoker - Caffeine Use Caffeine Use: Reports: Coffee Other Caffeine Use: 3cups/day Caffeine Use Comment: 1/2 cup each day - Recreational Drug Use Recreational Drug Use: No ED ROS GENERAL - Review of Systems Review Of Systems: Comprehensive ROS is negative, except as noted in HPI. ED EXAM, GI/ABD - Physical Exam Exam: See Below Text/Narrative:: Exam: See Below Exam Limited By: No Limitations Head: Atraumatic Neck: Normal Inspection. No: Carotid Bruit, Lymphadenopathy (R) Respiratory/Chest: No Respiratory Distress, Lungs Clear, Normal Breath Sounds, No Accessory Muscle Use. No: Chest Non-Tender Cardiovascular: Normal Peripheral Pulses, Regular Rate, Rhythm, No Edema, No JVD GI/Abdominal: Normal Bowel Sounds, mild tenderness around ileostomy stoma no guarding no rebound no mass appreciated. No mass or splenomegaly . ostomy bag is empty. Back Exam: Normal Inspection. No: CVA Tenderness (R) Extremities: Normal Inspection. No: No Pedal Edema Neurological: Alert, Oriented, Normal Cognition Psychiatric: Normal Affect Skin Exam: Warm Lymphatic: No Adenopathy Course - Vital Signs Last Recorded V/S: Last Vital Signs Temp 36.0 C 09/24/19 18:49 Pulse 88 09/24/19 18:49 Resp 16 09/24/19 18:49 BP 150/81 H 09/24/19 18:49 Pulse Ox 95 09/24/19 18:49 - Orders/Labs/Meds Orders: Active Orders 24 hr Category Date Time Status Patient Status [ADT] Routine ADT 09/24/19 19:09 Active Antiembolic Devices [RC] PER UNIT ROUTINE Care 09/24/19 19:11 Active Notify Provider Consults [RC] ASDIRECTED Care 09/24/19 19:11 Active Oxygen Therapy [RC] PRN Care 09/24/19 19:09 Active VTE/DVT Education [RC] PER UNIT ROUTINE Care 09/24/19 19:09 Active Vital Signs [RC] Q4H Care 09/24/19 19:09 Active Consult to Physician [CONS] Routine Cons 09/24/19 19:09 Active Nothing per Oral Now Diet [DIET] Diet 09/24/19 Breakfast Active BASIC METABOLIC PANEL,BMP [CHEM] AM Lab 09/25/19 05:11 Ordered CBC WITH AUTO DIFF [HEME] AM Lab 09/25/19 05:11 Ordered Heparin Sodium Med 09/24/19 19:15 Active 5,000 units SUBCUT Q8H LORazepam [Ativan] Med 09/24/19 19:09 Active 1 mg IVPUSH Q6H PRN Morphine Med 09/24/19 19:09 Active 2 mg IVPUSH Q2H PRN Ondansetron [Zofran] Med 09/24/19 19:09 Active 4 mg IVPUSH Q4H PRN Sodium Chloride 0.9% [Normal Saline] 1,000 ml Med 09/24/19 19:04 Active IV .BOLUS Sodium Chloride 0.9% [Normal Saline] 1,000 ml Med 09/24/19 19:15 Active IV ASDIRECTED Sodium Chloride 0.9% [Saline Flush] Med 09/24/19 16:57 Active 10 ml FLUSH ASDIRECTED PRN Sodium Chloride 0.9% [Saline Flush] Med 09/24/19 16:57 Active 2.5 ml FLUSH ASDIRECTED PRN Sodium Chloride 0.9% with KCl [Normal Saline with 40 Med 09/24/19 19:15 Active mEq KCl] 1,000 ml IV ASDIRECTED Saline Lock Insert [OM.PC] Stat Oth 09/24/19 16:57 Ordered Sequential Compression Device [OM.PC] Per Unit Routine Oth 09/24/19 19:10 Ordered Resuscitation Status Routine Resus Stat 09/24/19 19:09 Ordered Medication Orders Heparin Sodium (Porcine) (Heparin Sodium) 5,000 units SUBCUT Q8H CLARA Sodium Chloride (Normal Saline) 1,000 mls @ 999 mls/hr IV .BOLUS ONE Stop: 09/24/19 20:04 Potassium Chloride/Sodium Chloride (Normal Saline With 40 Meq Kcl) 1,000 mls @ 150 mls/hr IV ASDIRECTED CLARA Stop: 09/25/19 01:54 Sodium Chloride (Normal Saline) 1,000 mls @ 125 mls/hr IV ASDIRECTED CLARA Lorazepam (Ativan) 1 mg IVPUSH Q6H PRN PRN Reason: agitation Morphine Sulfate (Morphine) 2 mg IVPUSH Q2H PRN PRN Reason: Pain (severe 7-10) Stop: 09/25/19 19:11 Ondansetron HCl (Zofran) 4 mg IVPUSH Q4H PRN PRN Reason: Nausea Sodium Chloride (Saline Flush) 10 ml FLUSH ASDIRECTED PRN PRN Reason: Keep Vein Open Last Admin: 09/24/19 17:18 Dose: 10 ml Sodium Chloride (Saline Flush) 2.5 ml FLUSH ASDIRECTED PRN PRN Reason: Keep Vein Open Last Admin: 09/24/19 17:19 Dose: 2.5 ml Labs: Laboratory Tests 09/24/19 09/24/19 09/24/19 Range/Units 16:04 17:14 17:14 WBC 3.67 L (4.0-11.0) K/uL RBC 4.55 (4.30-5.90) M/uL Hgb 12.6 (12.0-16.0) g/dL Hct 39.1 (36.0-46.0) % MCV 85.9 (80.0-98.0) fL MCH 27.7 (27.0-32.0) pg MCHC 32.2 (31.0-37.0) g/dL RDW Std Deviation 50.1 (28.0-62.0) fl RDW Coeff of Shaq 16 H (11.0-15.0) % Plt Count 173 (150-400) K/uL MPV 10.10 (7.40-12.00) fL Neut % (Auto) 52.3 (48.0-80.0) % Lymph % (Auto) 34.1 (16.0-40.0) % [place] % (Auto) 11.2 (0.0-15.0) % Eos % (Auto) 1.9 (0.0-7.0) % Baso % (Auto) 0.5 (0.0-1.5) % Neut # (Auto) 1.9 (1.4-5.7) K/uL Lymph # (Auto) 1.3 (0.6-2.4) K/uL [place] # (Auto) 0.4 (0.0-0.8) K/uL Eos # (Auto) 0.1 (0.0-0.7) K/uL Baso # (Auto) 0.0 (0.0-0.1) K/uL Nucleated RBC % 0.0 /100WBC Nucleated RBCs # 0 K/uL Sodium 141 (136-145) mmol/L Potassium 3.2 L (3.5-5.1) mmol/L Chloride 103 (98-107) mmol/L Carbon Dioxide 30.3 (21.0-32.0) mmol/L BUN 6 L (7.0-18.0) mg/dL Creatinine 0.6 (0.6-1.0) mg/dL Est Cr Clr Drug Dosing 93.53 mL/min Estimated GFR (MDRD) > 60.0 ml/min Glucose 100 (74-106) mg/dL POC Glucose 79 (60-110) mg/dL Calcium 9.3 (8.5-10.1) mg/dL Total Bilirubin 0.6 (0.2-1.0) mg/dL AST 17 (15-37) IU/L ALT 20 (14-63) IU/L Alkaline Phosphatase 67 (46-116) U/L Total Protein 7.4 (6.4-8.2) g/dL Albumin 3.9 (3.4-5.0) g/dL Globulin 3.5 (2.6-4.0) g/dL Albumin/Globulin Ratio 1.1 (0.9-1.6) Urine Color Urine Appearance Urine pH (5.0-8.0) Ur Specific [place] (1.001-1.035) Urine Protein (NEGATIVE) mg/dL Urine Glucose (UA) (NEGATIVE) mg/dL Urine Ketones (NEGATIVE) mg/dL Urine Occult Blood (NEGATIVE) Urine Nitrite (NEGATIVE) Urine Bilirubin (NEGATIVE) Urine Urobilinogen (<2.0) EU/dL Ur Leukocyte Esterase (NEGATIVE) Urine RBC (0-2/HPF) Urine WBC (0-5/HPF) Ur Epithelial Cells (NONE-FEW) Urine Bacteria (NEGATIVE) Urine Mucus (NONE-MOD) 09/24/19 Range/Units 17:20 WBC (4.0-11.0) K/uL RBC (4.30-5.90) M/uL Hgb (12.0-16.0) g/dL Hct (36.0-46.0) % MCV (80.0-98.0) fL MCH (27.0-32.0) pg MCHC (31.0-37.0) g/dL RDW Std Deviation (28.0-62.0) fl RDW Coeff of Shaq (11.0-15.0) % Plt Count (150-400) K/uL MPV (7.40-12.00) fL Neut % (Auto) (48.0-80.0) % Lymph % (Auto) (16.0-40.0) % [place] % (Auto) (0.0-15.0) % Eos % (Auto) (0.0-7.0) % Baso % (Auto) (0.0-1.5) % Neut # (Auto) (1.4-5.7) K/uL Lymph # (Auto) (0.6-2.4) K/uL [place] # (Auto) (0.0-0.8) K/uL Eos # (Auto) (0.0-0.7) K/uL Baso # (Auto) (0.0-0.1) K/uL Nucleated RBC % /100WBC Nucleated RBCs # K/uL Sodium (136-145) mmol/L Potassium (3.5-5.1) mmol/L Chloride (98-107) mmol/L Carbon Dioxide (21.0-32.0) mmol/L BUN (7.0-18.0) mg/dL Creatinine (0.6-1.0) mg/dL Est Cr Clr Drug Dosing mL/min Estimated GFR (MDRD) ml/min Glucose (74-106) mg/dL POC Glucose (60-110) mg/dL Calcium (8.5-10.1) mg/dL Total Bilirubin (0.2-1.0) mg/dL AST (15-37) IU/L ALT (14-63) IU/L Alkaline Phosphatase (46-116) U/L Total Protein (6.4-8.2) g/dL Albumin (3.4-5.0) g/dL Globulin (2.6-4.0) g/dL Albumin/Globulin Ratio (0.9-1.6) Urine Color YELLOW Urine Appearance CLEAR Urine pH 7.5 (5.0-8.0) Ur Specific [place] 1.020 (1.001-1.035) Urine Protein NEGATIVE (NEGATIVE) mg/dL Urine Glucose (UA) NEGATIVE (NEGATIVE) mg/dL Urine Ketones NEGATIVE (NEGATIVE) mg/dL Urine Occult Blood NEGATIVE (NEGATIVE) Urine Nitrite NEGATIVE (NEGATIVE) Urine Bilirubin NEGATIVE (NEGATIVE) Urine Urobilinogen 0.2 (<2.0) EU/dL Ur Leukocyte Esterase NEGATIVE (NEGATIVE) Urine RBC 0-2 (0-2/HPF) Urine WBC 0-2 (0-5/HPF) Ur Epithelial Cells RARE (NONE-FEW) Urine Bacteria FEW (NEGATIVE) Urine Mucus LIGHT (NONE-MOD) Meds: Medications Generic Name Dose Route Start Last Admin Trade Name Freq PRN Reason Stop Dose Admin Heparin Sodium (Porcine) 5,000 units 09/24/19 19:15 Heparin Sodium SUBCUT Q8H CLARA Sodium Chloride 1,000 mls @ 999 mls/hr 09/24/19 19:04 Normal Saline IV 09/24/19 20:04 .BOLUS ONE Potassium Chloride/Sodium Chloride 1,000 mls @ 150 mls/hr 09/24/19 19:15 Normal Saline With 40 Meq Kcl IV 09/25/19 01:54 ASDIRECTED CLARA Sodium Chloride 1,000 mls @ 125 mls/hr 09/24/19 19:15 Normal Saline IV ASDIRECTED CLARA Lorazepam 1 mg 09/24/19 19:09 Ativan IVPUSH Q6H PRN agitation Morphine Sulfate 2 mg 09/24/19 19:09 Morphine IVPUSH 09/25/19 19:11 Q2H PRN Pain (severe 7-10) Ondansetron HCl 4 mg 09/24/19 19:09 Zofran IVPUSH Q4H PRN Nausea Sodium Chloride 10 ml 09/24/19 16:57 09/24/19 17:18 Saline Flush FLUSH 10 ml ASDIRECTED PRN Administration Keep Vein Open Sodium Chloride 2.5 ml 09/24/19 16:57 09/24/19 17:19 Saline Flush FLUSH 2.5 ml ASDIRECTED PRN Administration Keep Vein Open Discontinued Medications Generic Name Dose Route Start Last Admin Trade Name Freq PRN Reason Stop Dose Admin Sodium Chloride 1,000 mls @ 999 mls/hr 09/24/19 16:55 09/24/19 17:14 Normal Saline IV 09/24/19 17:55 999 mls/hr .BOLUS ONE Administration Ondansetron HCl 4 mg 09/24/19 16:55 09/24/19 17:18 Zofran Odt PO 09/24/19 16:56 Not Given ONETIME ONE Ondansetron HCl 4 mg 09/24/19 17:18 09/24/19 17:18 Zofran IVPUSH 09/24/19 17:19 4 mg ONETIME ONE Administration Ondansetron HCl Confirm 09/24/19 17:17 09/24/19 18:00 Zofran Administered 09/24/19 17:18 Not Given Dose 4 mg .ROUTE .[facility] ONE - Re-Assessments/Exams Free Text/Narrative Re-Assessment/Exam: 09/24/19 19:26 Patient's lab work is unremarkable. Repeat CAT scan shows her to have similar pattern to previous which was read as partial small bowel obstruction. It is also been read is slightly worse than recent CT. Patient was discussed with hospitalist and with Dr. Urbina will be admitted at this time. Is feeling much better after 1 L of IV fluid and is receiving a second liter currently. Departure - Departure Time of Disposition: 19:27 Disposition: Admitted As Inpatient 64 Condition: Fair Clinical Impression: Partial small bowel obstruction, Dehydration - Discharge Information Referrals: Yaw Loza MD [Primary Care Provider] - Forms: ED Department Discharge Sepsis Event Note - Evaluation Sepsis Screening Result: No Definite Risk - Focused Exam Vital Signs: Vital Signs Temp Pulse Resp BP Pulse Ox 09/24/19 18:49 36.0 C 88 16 150/81 H 95 09/24/19 16:05 36.9 C 94 18 140/75 95 Date Exam was Performed: 09/24/19 Time Exam was Performed: 19:22 - My Orders Last 24 Hours: My Active Orders 09/24/19 16:57 Sodium Chloride 0.9% [Saline Flush] 10 ml FLUSH ASDIRECTED PRN Sodium Chloride 0.9% [Saline Flush] 2.5 ml FLUSH ASDIRECTED PRN Saline Lock Insert [OM.PC] Stat 09/24/19 19:04 Sodium Chloride 0.9% [Normal Saline] 1,000 ml IV .BOLUS - Assessment/Plan Last 24 Hours: My Active Orders 09/24/19 16:57 Sodium Chloride 0.9% [Saline Flush] 10 ml FLUSH ASDIRECTED PRN Sodium Chloride 0.9% [Saline Flush] 2.5 ml FLUSH ASDIRECTED PRN Saline Lock Insert [OM.PC] Stat 09/24/19 19:04 Sodium Chloride 0.9% [Normal Saline] 1,000 ml IV .BOLUS
[2019-09-24] MEDS ORDERED: Ondansetron 4 MG Tab.DIS PO ONE (16:55)
[2019-09-24] MEDS ORDERED: Sodium Chloride 0.9% 1,000 ML IV ONE ×2 (16:55→19:04)
[2019-09-24] MEDS ORDERED: Sodium Chloride 0.9% 10 ML Syringe FLUSH PRN (16:57)
[2019-09-24] MEDS ORDERED: Sodium Chloride 0.9% 2.5 ML Syringe FLUSH PRN (16:57)
[2019-09-24] MEDS ORDERED: Ondansetron 4 MG/2 ML SDV ONE (17:17)
[2019-09-24] MEDS ORDERED: Ondansetron 4 MG/2 ML SDV IVPUSH ONE (17:18)
[2019-09-24 17:48] LABS: BLOOD UREA NITROGEN,BUN 6 mg/dL (7.0-18.0); CARBON DIOXIDE,CO2 30.3 mmol/L (21.0-32.0); CHLORIDE,CL 103 mmol/L (98-107); GLUCOSE RANDOM 100 mg/dL (74-106); POTASSIUM,K 3.2 mmol/L (3.5-5.1); SODIUM,NA 141 mmol/L (136-145)
--- NOTE | 2019-09-24 18:27 | CT ---
INDICATION: Bowel obstruction. TECHNIQUE: CT abdomen and pelvis without contrast. COMPARISON: 09/18/2019. FINDINGS: Lower chest: Unremarkable. Liver: Normal in size and attenuation. No masses. Gallbladder and bile ducts: Small amount of sludge is suspected. No inflammation and no biliary dilatation. Pancreas: Unremarkable. No mass or inflammation. Spleen: Normal in size. No masses. Adrenal glands: Normal in size. No nodules. Kidneys: Normal in size. No masses, stones, or hydronephrosis. GI tract: Again demonstrated are postoperative changes from a subtotal colectomy and left ventral colostomy creation. Large parastomal hernia contains a fair amount of small bowel. Small fluid levels are present in minimally dilated loops of small bowel suggesting a fairly mild small-bowel obstruction. Normal appendix. Vasculature: Aortic atherosclerosis without aneurysm. Lymph nodes: No lymphadenopathy. Abdominal wall/Omentum/Peritoneum: Stranding/edema in the omental fat is similar to the prior exam. Minimal free-fluid in the pelvis. No free air. Pelvis: Unremarkable. No pelvic masses. Bones: Unremarkable for age. IMPRESSION: Fairly mild small-bowel obstruction pattern persists and appears to have very slightly worsened since the prior exam. No other critical findings or significant changes. Please note that all CT scans at this facility use dose modulation, iterative reconstruction, and/or weight-based dosing when appropriate to reduce radiation dose to as low as reasonably achievable. Dictated by Nikunj Figueroa MD @ Sep 24 2019 6:13PM Signed by Dr. Nikunj Figueroa @ Sep 24 2019 6:24PM
[2019-09-24] MEDS ORDERED: Morphine 10 MG/ML Syringe IVPUSH PRN (19:09)
[2019-09-24] MEDS ORDERED: Sodium Chloride 0.9% with KCl 1,000 ML IV SCH (19:15)
--- NOTE | 2019-09-24 19:19 | PCM.HP.2 ---
H&P History of Present Illness - General Date of Service: 09/24/19 Admit Problem/Dx: Admission Diagnosis/Problem Admission Diagnosis/Problem Small bowel obstruction - History of Present Illness Initial Comments - Free Text/Narative: 58 y/o female with history of COPD and complex surgical history which includes colostomy s/p bowel perforation in June who was recently admitted 09/18 to for partial small bowel obstruction. She was treated conservatively with bowel rest and IV fluids and discharged home and has follow up in [place] regarding possible fix of hernia. She presents tonight with similar symptoms of nausea and vomiting and low ostomy output. PAtient reports passing gas but not having a stool since Friday. Repeat CT scan shows mild small bowel obstruction. left upper abd Pain Score (Numeric/FACES): 1 - Related Data Allergies/Adverse Reactions: Allergies Allergy/AdvReac Type Severity Reaction Status Date / Time No Known Allergies Allergy Verified 09/24/19 16:07 Home Medications: Home Meds ALPRAZolam [Xanax] 2 mg PO TID PRN 05/29/18 [History] Albuterol/Ipratropium [Combivent Respimat] 1 puff IH QID PRN 05/29/18 [History] Budesonide [Pulmicort] 1 dose INH BEDTIME 11/04/18 [History] Fluticasone Propionate [Flonase] 2 puff NASBOTH DAILY 11/04/18 [History] busPIRone [Buspar] 15 mg PO BID 11/04/18 [History] Ondansetron [Zofran ODT] 4 mg PO Q6H PRN 08/04/19 [History] Rosuvastatin [Crestor] 5 mg PO BEDTIME 08/04/19 [History] Budesonide/Formoterol Fumarate [Symbicort 160-4.5 Mcg Inhaler] 6 gm IH BID 30 Days #1 hfa.aer.ad 08/06/19 [Rx] Iron Polysaccharides Complex [Ferrex 150] 150 mg PO DAILY #30 cap 08/06/19 [Rx] Docusate Sodium [Colace] 100 mg PO BID 09/18/19 [History] Past Medical History HEENT History: Reports: None Cardiovascular History: Reports: Heart Murmur, Other (See Below) 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 Respiratory History: Reports: COPD, Other (See Below) Other Respiratory History: emphsyema Gastrointestinal History: Reports: Bowel Obstruction Other Gastrointestinal History: Bowel obstruction 2010, 2018, perforated colon in 2019 Genitourinary History: Reports: None [employer] 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: Musculoskeletal History: Reports: Arthritis Neurological History: Reports: None Psychiatric History: Reports: Anxiety, Depression, Panic Attack Endocrine/Metabolic History: Reports: None Hematologic History: Reports: Blood Transfusion(s) Immunologic History: Reports: None Oncologic (Cancer) History: Reports: None Dermatologic History: Reports: None - Infectious Disease History Infectious Disease History: Reports: Chicken Pox, Measles, Mumps - Past Surgical History Head Surgeries/Procedures: Reports: None HEENT Surgical History: Reports: Tonsillectomy Cardiovascular Surgical History: Reports: Cardiac Ablation Other Cardiovascular Surgeries/Procedures: Cardiac ablation in 1991 Respiratory Surgical History: Reports: None GI Surgical History: Reports: Appendectomy, Colostomy, Other (See Below) Female Surgical History: Reports: Section, Tubal Ligation Endocrine Surgical History: Reports: None Neurological Surgical History: Reports: None Musculoskeletal Surgical History: Reports: None Oncologic Surgical History: Reports: None Dermatological Surgical History: Reports: None Social & Family History - Family History Family Medical History: Noncontributory - Tobacco Use Smoking Status *Q: Never Smoker - Caffeine Use Caffeine Use: Reports: Coffee Other Caffeine Use: 3cups/day Caffeine Use Comment: 1/2 cup each day - Recreational Drug Use Recreational Drug Use: No H&P Review of Systems - Review of Systems: Review Of Systems: Comprehensive ROS is negative, except as noted in HPI. Exam - Exam Exam: See Below - Vital Signs Vital Signs: Last Vital Signs Temp 36.0 C 09/24/19 18:49 Pulse 88 09/24/19 18:49 Resp 16 09/24/19 18:49 BP 150/81 H 09/24/19 18:49 Pulse Ox 95 09/24/19 18:49 Weight: 59.421 kg - Exam General: Alert, Oriented HEENT: Mucosa Moist & [place] Lungs: Clear to Auscultation, Normal Respiratory Effort Cardiovascular: Regular Rate, Regular Rhythm GI/Abdominal Exam: Normal Bowel Sounds, Soft, Non-Tender, No Distention, Other ( ostomy in place) Extremities: Non-Tender, No Pedal Edema - Patient Data Lab Results Last 24 hrs: Laboratory Results - last 24 hr 09/24/19 09/24/19 09/24/19 Range/Units 16:04 17:14 17:14 WBC 3.67 L (4.0-11.0) K/uL RBC 4.55 (4.30-5.90) M/uL Hgb 12.6 (12.0-16.0) g/dL Hct 39.1 (36.0-46.0) % MCV 85.9 (80.0-98.0) fL MCH 27.7 (27.0-32.0) pg MCHC 32.2 (31.0-37.0) g/dL RDW Std Deviation 50.1 (28.0-62.0) fl RDW Coeff of Shaq 16 H (11.0-15.0) % Plt Count 173 (150-400) K/uL MPV 10.10 (7.40-12.00) fL Neut % (Auto) 52.3 (48.0-80.0) % Lymph % (Auto) 34.1 (16.0-40.0) % [place] % (Auto) 11.2 (0.0-15.0) % Eos % (Auto) 1.9 (0.0-7.0) % Baso % (Auto) 0.5 (0.0-1.5) % Neut # (Auto) 1.9 (1.4-5.7) K/uL Lymph # (Auto) 1.3 (0.6-2.4) K/uL [place] # (Auto) 0.4 (0.0-0.8) K/uL Eos # (Auto) 0.1 (0.0-0.7) K/uL Baso # (Auto) 0.0 (0.0-0.1) K/uL Nucleated RBC % 0.0 /100WBC Nucleated RBCs # 0 K/uL Sodium 141 (136-145) mmol/L Potassium 3.2 L (3.5-5.1) mmol/L Chloride 103 (98-107) mmol/L Carbon Dioxide 30.3 (21.0-32.0) mmol/L BUN 6 L (7.0-18.0) mg/dL Creatinine 0.6 (0.6-1.0) mg/dL Est Cr Clr Drug Dosing 93.53 mL/min Estimated GFR (MDRD) > 60.0 ml/min Glucose 100 (74-106) mg/dL POC Glucose 79 (60-110) mg/dL Calcium 9.3 (8.5-10.1) mg/dL Total Bilirubin 0.6 (0.2-1.0) mg/dL AST 17 (15-37) IU/L ALT 20 (14-63) IU/L Alkaline Phosphatase 67 (46-116) U/L Total Protein 7.4 (6.4-8.2) g/dL Albumin 3.9 (3.4-5.0) g/dL Globulin 3.5 (2.6-4.0) g/dL Albumin/Globulin Ratio 1.1 (0.9-1.6) Urine Color Urine Appearance Urine pH (5.0-8.0) Ur Specific [place] (1.001-1.035) Urine Protein (NEGATIVE) mg/dL Urine Glucose (UA) (NEGATIVE) mg/dL Urine Ketones (NEGATIVE) mg/dL Urine Occult Blood (NEGATIVE) Urine Nitrite (NEGATIVE) Urine Bilirubin (NEGATIVE) Urine Urobilinogen (<2.0) EU/dL Ur Leukocyte Esterase (NEGATIVE) Urine RBC (0-2/HPF) Urine WBC (0-5/HPF) Ur Epithelial Cells (NONE-FEW) Urine Bacteria (NEGATIVE) Urine Mucus (NONE-MOD) 09/24/19 Range/Units 17:20 WBC (4.0-11.0) K/uL RBC (4.30-5.90) M/uL Hgb (12.0-16.0) g/dL Hct (36.0-46.0) % MCV (80.0-98.0) fL MCH (27.0-32.0) pg MCHC (31.0-37.0) g/dL RDW Std Deviation (28.0-62.0) fl RDW Coeff of Shaq (11.0-15.0) % Plt Count (150-400) K/uL MPV (7.40-12.00) fL Neut % (Auto) (48.0-80.0) % Lymph % (Auto) (16.0-40.0) % [place] % (Auto) (0.0-15.0) % Eos % (Auto) (0.0-7.0) % Baso % (Auto) (0.0-1.5) % Neut # (Auto) (1.4-5.7) K/uL Lymph # (Auto) (0.6-2.4) K/uL [place] # (Auto) (0.0-0.8) K/uL Eos # (Auto) (0.0-0.7) K/uL Baso # (Auto) (0.0-0.1) K/uL Nucleated RBC % /100WBC Nucleated RBCs # K/uL Sodium (136-145) mmol/L Potassium (3.5-5.1) mmol/L Chloride (98-107) mmol/L Carbon Dioxide (21.0-32.0) mmol/L BUN (7.0-18.0) mg/dL Creatinine (0.6-1.0) mg/dL Est Cr Clr Drug Dosing mL/min Estimated GFR (MDRD) ml/min Glucose (74-106) mg/dL POC Glucose (60-110) mg/dL Calcium (8.5-10.1) mg/dL Total Bilirubin (0.2-1.0) mg/dL AST (15-37) IU/L ALT (14-63) IU/L Alkaline Phosphatase (46-116) U/L Total Protein (6.4-8.2) g/dL Albumin (3.4-5.0) g/dL Globulin (2.6-4.0) g/dL Albumin/Globulin Ratio (0.9-1.6) Urine Color YELLOW Urine Appearance CLEAR Urine pH 7.5 (5.0-8.0) Ur Specific [place] 1.020 (1.001-1.035) Urine Protein NEGATIVE (NEGATIVE) mg/dL Urine Glucose (UA) NEGATIVE (NEGATIVE) mg/dL Urine Ketones NEGATIVE (NEGATIVE) mg/dL Urine Occult Blood NEGATIVE (NEGATIVE) Urine Nitrite NEGATIVE (NEGATIVE) Urine Bilirubin NEGATIVE (NEGATIVE) Urine Urobilinogen 0.2 (<2.0) EU/dL Ur Leukocyte Esterase NEGATIVE (NEGATIVE) Urine RBC 0-2 (0-2/HPF) Urine WBC 0-2 (0-5/HPF) Ur Epithelial Cells RARE (NONE-FEW) Urine Bacteria FEW (NEGATIVE) Urine Mucus LIGHT (NONE-MOD) Result Diagrams: 09/24/19 17:14 09/24/19 17:14 Sepsis Event Note - Evaluation Sepsis Screening Result: No Definite Risk - Focused Exam Vital Signs: Vital Signs Temp Pulse Resp BP Pulse Ox 09/24/19 18:49 36.0 C 88 16 150/81 H 95 09/24/19 16:05 36.9 C 94 18 140/75 95 Date Exam was Performed: 09/24/19 Time Exam was Performed: 19:13 Problem List Initiated/Reviewed/Updated: Yes Orders Last 24hrs: Active Orders 24 hr Category Date Time Status Patient Status [ADT] Routine ADT 09/24/19 19:09 Active Antiembolic Devices [RC] PER UNIT ROUTINE Care 09/24/19 19:11 Active Notify Provider Consults [RC] ASDIRECTED Care 09/24/19 19:11 Active Oxygen Therapy [RC] PRN Care 09/24/19 19:09 Active VTE/DVT Education [RC] PER UNIT ROUTINE Care 09/24/19 19:09 Active Vital Signs [RC] Q4H Care 09/24/19 19:09 Active Consult to Physician [CONS] Routine Cons 09/24/19 19:09 Active Nothing per Oral Now Diet [DIET] Diet 09/24/19 Breakfast Active BASIC METABOLIC PANEL,BMP [CHEM] AM Lab 09/25/19 05:11 Ordered CBC WITH AUTO DIFF [HEME] AM Lab 09/25/19 05:11 Ordered Heparin Sodium Med 09/24/19 19:15 Active 5,000 units SUBCUT Q8H LORazepam [Ativan] Med 09/24/19 19:09 Active 1 mg IVPUSH Q6H PRN Morphine Med 09/24/19 19:09 Active 2 mg IVPUSH Q2H PRN Ondansetron [Zofran] Med 09/24/19 19:09 Active 4 mg IVPUSH Q4H PRN Sodium Chloride 0.9% [Normal Saline] 1,000 ml Med 09/24/19 19:04 Active IV .BOLUS Sodium Chloride 0.9% [Normal Saline] 1,000 ml Med 09/24/19 19:15 Active IV ASDIRECTED Sodium Chloride 0.9% [Saline Flush] Med 09/24/19 16:57 Active 10 ml FLUSH ASDIRECTED PRN Sodium Chloride 0.9% [Saline Flush] Med 09/24/19 16:57 Active 2.5 ml FLUSH ASDIRECTED PRN Sodium Chloride 0.9% with KCl [Normal Saline with 40 Med 09/24/19 19:15 Active mEq KCl] 1,000 ml IV ASDIRECTED Saline Lock Insert [OM.PC] Stat Oth 09/24/19 16:57 Ordered Sequential Compression Device [OM.PC] Per Unit Routine Oth 09/24/19 19:10 Ordered Resuscitation Status Routine Resus Stat 09/24/19 19:09 Ordered Medication Orders Heparin Sodium (Porcine) (Heparin Sodium) 5,000 units SUBCUT Q8H CLARA Sodium Chloride (Normal Saline) 1,000 mls @ 999 mls/hr IV .BOLUS ONE Stop: 09/24/19 20:04 Potassium Chloride/Sodium Chloride (Normal Saline With 40 Meq Kcl) 1,000 mls @ 150 mls/hr IV ASDIRECTED CLARA Stop: 09/25/19 01:54 Sodium Chloride (Normal Saline) 1,000 mls @ 125 mls/hr IV ASDIRECTED CLARA Lorazepam (Ativan) 1 mg IVPUSH Q6H PRN PRN Reason: agitation Morphine Sulfate (Morphine) 2 mg IVPUSH Q2H PRN PRN Reason: Pain (severe 7-10) Stop: 09/25/19 19:11 Ondansetron HCl (Zofran) 4 mg IVPUSH Q4H PRN PRN Reason: Nausea Sodium Chloride (Saline Flush) 10 ml FLUSH ASDIRECTED PRN PRN Reason: Keep Vein Open Last Admin: 09/24/19 17:18 Dose: 10 ml Sodium Chloride (Saline Flush) 2.5 ml FLUSH ASDIRECTED PRN PRN Reason: Keep Vein Open Last Admin: 09/24/19 17:19 Dose: 2.5 ml Assessment/Plan Comment:: 58 yo female with past medical history of colostomy with large paraostomy hernia who is being admitted for partial small bowel obstruction. We will treat with bowel rest and IV fluids. Dr. Urbina has been consulted by ED physician.
--- NOTE | 2019-09-24 20:02 | PCM.CONS ---
H&P History of Present Illness - General Date of Service: 09/24/19 Admit Problem/Dx: Admission Diagnosis/Problem Admission Diagnosis/Problem Small bowel obstruction Source of Information: Patient History Limitations: Reports: No Limitations - History of Present Illness Initial Comments - Free Text/Narative: Patient is a 58-year-old female who presented to the emergency room this evening , again complaining of abdominal pain, bloating, nausea, vomiting and inability to pass gas. She was recently hospitalized September 20 with similar problems and arrangements have been made for her to be seen by the colorectal service in [place]. She is scheduled to go down. there this coming Friday. Patient denies any blood in the stoma. She was feeling quite weak when she came in, but is feeling much better now that she has been hydrated. Of note is that she presented in late June with a perforated viscus and required emergent transfer and surgery in [place]. At that time a colostomy was placed in the left lower quadrant. She has since developed a hernia in that area. Onset of Symptoms: Reports: Today Duration of Symptoms: Reports: Hour(s):, Getting Worse, Recurring Location: Reports: Abdomen Quality: Reports: Ache, Pressure, Same as Previous Episode Severity: Moderate Improves with: Reports: Other Worsens with: Reports: Movement Context: Reports: Sick Contact Associated Symptoms: Reports: Nausea/Vomiting, Weakness. Denies: Diaphoresis, Fever/Chills left upper abd Pain Score (Numeric/FACES): 1 - Related Data Allergies/Adverse Reactions: Allergies Allergy/AdvReac Type Severity Reaction Status Date / Time No Known Allergies Allergy Verified 09/24/19 16:07 Home Medications: Home Meds ALPRAZolam [Xanax] 2 mg PO TID PRN 05/29/18 [History] Albuterol/Ipratropium [Combivent Respimat] 1 puff IH QID PRN 05/29/18 [History] Budesonide [Pulmicort] 1 dose INH BEDTIME 11/04/18 [History] Fluticasone Propionate [Flonase] 2 puff NASBOTH DAILY 11/04/18 [History] busPIRone [Buspar] 15 mg PO BID 11/04/18 [History] Ondansetron [Zofran ODT] 4 mg PO Q6H PRN 08/04/19 [History] Rosuvastatin [Crestor] 5 mg PO BEDTIME 08/04/19 [History] Budesonide/Formoterol Fumarate [Symbicort 160-4.5 Mcg Inhaler] 6 gm IH BID 30 Days #1 hfa.aer.ad 08/06/19 [Rx] Iron Polysaccharides Complex [Ferrex 150] 150 mg PO DAILY #30 cap 08/06/19 [Rx] Docusate Sodium [Colace] 100 mg PO BID 09/18/19 [History] Past Medical History HEENT History: Reports: None Cardiovascular History: Reports: Heart Murmur 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 Respiratory History: Reports: COPD, Other (See Below) Other Respiratory History: emphsyema Gastrointestinal History: Reports: Bowel Obstruction Other Gastrointestinal History: Bowel obstruction 2010, 2018, perforated colon in 2018 Genitourinary History: Reports: None [employer] SPECIALIST History: Reports: Musculoskeletal History: Reports: Arthritis Neurological History: Reports: None Psychiatric History: Reports: Anxiety, Depression, Panic Attack Endocrine/Metabolic History: Reports: None Hematologic History: Reports: Blood Transfusion(s) Immunologic History: Reports: None Oncologic (Cancer) History: Reports: None Dermatologic History: Reports: None - Infectious Disease History Infectious Disease History: Reports: Chicken Pox, Measles, Mumps - Past Surgical History Head Surgeries/Procedures: Reports: None HEENT Surgical History: Reports: Tonsillectomy Cardiovascular Surgical History: Reports: Cardiac Ablation Other Cardiovascular Surgeries/Procedures: Cardiac ablation in 1991 Respiratory Surgical History: Reports: None GI Surgical History: Reports: Appendectomy, Colostomy, Other (See Below) Female Surgical History: Reports: Section, Tubal Ligation Endocrine Surgical History: Reports: None Neurological Surgical History: Reports: None Musculoskeletal Surgical History: Reports: None Oncologic Surgical History: Reports: None Dermatological Surgical History: Reports: None Social & Family History - Family History Family Medical History: Noncontributory - Tobacco Use Smoking Status *Q: Never Smoker - Caffeine Use Caffeine Use: Reports: Coffee Other Caffeine Use: 3cups/day Caffeine Use Comment: 1/2 cup each day - Recreational Drug Use Recreational Drug Use: No H&P Review of Systems - Review of Systems: Review Of Systems: See Below General: Reports: Malaise, Weakness, Fatigue. Denies: Fever, Chills, Weight Loss HEENT: Reports: No Symptoms Pulmonary: Reports: Shortness of Breath (COPD). Denies: Wheezing, Pleuritic Chest Pain, Cough, Sputum, Hemoptysis Cardiovascular: Denies: Chest Pain, Palpitations Gastrointestinal: Reports: Abdominal Pain, Anorexia, Constipation, Decreased Appetite, Distension, Nausea, Vomiting. Denies: Black Stool, Bloody Stool, Diarrhea, Flatus, Hematemesis, Hematochezia, Melena Genitourinary: Denies: Dysuria, Frequency, Burning, Pain, Urgency Musculoskeletal: Reports: No Symptoms Skin: Denies: Cyanosis, Jaundice, Mottled, Pallor, Diaphoresis Psychiatric: Denies: Confusion, Depression, Anxiety Neurological: Reports: No Symptoms Hematologic/Lymphatic: Reports: No Symptoms Immunologic: Reports: No Symptoms Exam - Exam Exam: See Below - Vital Signs Vital Signs: Last Vital Signs Temp 96.8 F 09/24/19 18:49 Pulse 88 09/24/19 18:49 Resp 16 09/24/19 18:49 BP 150/81 H 09/24/19 18:49 Pulse Ox 95 09/24/19 18:49 Weight: 131 lb - Exam Quality Assessment: No: Supplemental Oxygen, Central Line/PICC, Urinary Catheter General: Alert, Oriented, Cooperative, Mild Distress HEENT: Conjunctiva Clear, EACs Clear, Pupils Equal, Pupils Reactive. No: Scleral Icterus Neck: Supple, Trachea Midline Lungs: Clear to Auscultation, Decreased Breath Sounds (Breath sounds are distant.). No: Crackles, Rales, Rhonchi Cardiovascular: Regular Rate, Regular Rhythm. No: Systolic Murmur, Diastolic Murmur GI/Abdominal Exam: Soft, Distended, Tender, Abnormal Bowel Sounds (Hyperactive) . No: Guarding, Rigid, Rebound (Female) Exam: Deferred Rectal (Female) Exam: Deferred Back Exam: Normal Inspection Extremities: Normal Inspection Skin: Warm, Dry, Intact Neurological: Cranial Nerves Intact, Reflexes Equal Bilateral Psychiatric: Alert, Normal Affect, Normal Mood - Patient Data Lab Results Last 24 hrs: Laboratory Results - last 24 hr 09/24/19 09/24/19 09/24/19 Range/Units 16:04 17:14 17:14 WBC 3.67 L (4.0-11.0) K/uL RBC 4.55 (4.30-5.90) M/uL Hgb 12.6 (12.0-16.0) g/dL Hct 39.1 (36.0-46.0) % MCV 85.9 (80.0-98.0) fL MCH 27.7 (27.0-32.0) pg MCHC 32.2 (31.0-37.0) g/dL RDW Std Deviation 50.1 (28.0-62.0) fl RDW Coeff of Shaq 16 H (11.0-15.0) % Plt Count 173 (150-400) K/uL MPV 10.10 (7.40-12.00) fL Neut % (Auto) 52.3 (48.0-80.0) % Lymph % (Auto) 34.1 (16.0-40.0) % [place] % (Auto) 11.2 (0.0-15.0) % Eos % (Auto) 1.9 (0.0-7.0) % Baso % (Auto) 0.5 (0.0-1.5) % Neut # (Auto) 1.9 (1.4-5.7) K/uL Lymph # (Auto) 1.3 (0.6-2.4) K/uL [place] # (Auto) 0.4 (0.0-0.8) K/uL Eos # (Auto) 0.1 (0.0-0.7) K/uL Baso # (Auto) 0.0 (0.0-0.1) K/uL Nucleated RBC % 0.0 /100WBC Nucleated RBCs # 0 K/uL Sodium 141 (136-145) mmol/L Potassium 3.2 L (3.5-5.1) mmol/L Chloride 103 (98-107) mmol/L Carbon Dioxide 30.3 (21.0-32.0) mmol/L BUN 6 L (7.0-18.0) mg/dL Creatinine 0.6 (0.6-1.0) mg/dL Est Cr Clr Drug Dosing 93.53 mL/min Estimated GFR (MDRD) > 60.0 ml/min Glucose 100 (74-106) mg/dL POC Glucose 79 (60-110) mg/dL Calcium 9.3 (8.5-10.1) mg/dL Total Bilirubin 0.6 (0.2-1.0) mg/dL AST 17 (15-37) IU/L ALT 20 (14-63) IU/L Alkaline Phosphatase 67 (46-116) U/L Total Protein 7.4 (6.4-8.2) g/dL Albumin 3.9 (3.4-5.0) g/dL Globulin 3.5 (2.6-4.0) g/dL Albumin/Globulin Ratio 1.1 (0.9-1.6) Urine Color Urine Appearance Urine pH (5.0-8.0) Ur Specific [place] (1.001-1.035) Urine Protein (NEGATIVE) mg/dL Urine Glucose (UA) (NEGATIVE) mg/dL Urine Ketones (NEGATIVE) mg/dL Urine Occult Blood (NEGATIVE) Urine Nitrite (NEGATIVE) Urine Bilirubin (NEGATIVE) Urine Urobilinogen (<2.0) EU/dL Ur Leukocyte Esterase (NEGATIVE) Urine RBC (0-2/HPF) Urine WBC (0-5/HPF) Ur Epithelial Cells (NONE-FEW) Urine Bacteria (NEGATIVE) Urine Mucus (NONE-MOD) 09/24/19 Range/Units 17:20 WBC (4.0-11.0) K/uL RBC (4.30-5.90) M/uL Hgb (12.0-16.0) g/dL Hct (36.0-46.0) % MCV (80.0-98.0) fL MCH (27.0-32.0) pg MCHC (31.0-37.0) g/dL RDW Std Deviation (28.0-62.0) fl RDW Coeff of Shaq (11.0-15.0) % Plt Count (150-400) K/uL MPV (7.40-12.00) fL Neut % (Auto) (48.0-80.0) % Lymph % (Auto) (16.0-40.0) % [place] % (Auto) (0.0-15.0) % Eos % (Auto) (0.0-7.0) % Baso % (Auto) (0.0-1.5) % Neut # (Auto) (1.4-5.7) K/uL Lymph # (Auto) (0.6-2.4) K/uL [place] # (Auto) (0.0-0.8) K/uL Eos # (Auto) (0.0-0.7) K/uL Baso # (Auto) (0.0-0.1) K/uL Nucleated RBC % /100WBC Nucleated RBCs # K/uL Sodium (136-145) mmol/L Potassium (3.5-5.1) mmol/L Chloride (98-107) mmol/L Carbon Dioxide (21.0-32.0) mmol/L BUN (7.0-18.0) mg/dL Creatinine (0.6-1.0) mg/dL Est Cr Clr Drug Dosing mL/min Estimated GFR (MDRD) ml/min Glucose (74-106) mg/dL POC Glucose (60-110) mg/dL Calcium (8.5-10.1) mg/dL Total Bilirubin (0.2-1.0) mg/dL AST (15-37) IU/L ALT (14-63) IU/L Alkaline Phosphatase (46-116) U/L Total Protein (6.4-8.2) g/dL Albumin (3.4-5.0) g/dL Globulin (2.6-4.0) g/dL Albumin/Globulin Ratio (0.9-1.6) Urine Color YELLOW Urine Appearance CLEAR Urine pH 7.5 (5.0-8.0) Ur Specific [place] 1.020 (1.001-1.035) Urine Protein NEGATIVE (NEGATIVE) mg/dL Urine Glucose (UA) NEGATIVE (NEGATIVE) mg/dL Urine Ketones NEGATIVE (NEGATIVE) mg/dL Urine Occult Blood NEGATIVE (NEGATIVE) Urine Nitrite NEGATIVE (NEGATIVE) Urine Bilirubin NEGATIVE (NEGATIVE) Urine Urobilinogen 0.2 (<2.0) EU/dL Ur Leukocyte Esterase NEGATIVE (NEGATIVE) Urine RBC 0-2 (0-2/HPF) Urine WBC 0-2 (0-5/HPF) Ur Epithelial Cells RARE (NONE-FEW) Urine Bacteria FEW (NEGATIVE) Urine Mucus LIGHT (NONE-MOD) Result Diagrams: 09/24/19 17:14 09/24/19 17:14 Sepsis Event Note - Evaluation Sepsis Screening Result: No Definite Risk - Focused Exam Vital Signs: Vital Signs Temp Pulse Resp BP Pulse Ox 09/24/19 18:49 96.8 F 88 16 150/81 H 95 09/24/19 16:05 98.4 F 94 18 140/75 95 Date Exam was Performed: 09/24/19 Time Exam was Performed: 19:56 Consult PN Assessment/Plan Procedures: Procedures AIRWAY INHALATION TREATMENT (11/07/18) ANTINUCLEAR ANTIBODIES (10/25/16) ASSAY OF AMYLASE (07/14/17) ASSAY OF LACTIC ACID (09/18/19) ASSAY OF LIPASE (07/11/19) ASSAY OF TROPONIN QUANT (05/29/18) BLOOD CULTURE FOR BACTERIA (07/11/19) BLOOD GASES ANY COMBINATION (11/07/18) COMPLETE CBC W/AUTO DIFF WBC (09/18/19) COMPREHEN METABOLIC PANEL (09/18/19) CT ABD & PELV W/CONTRAST (09/18/19) CT ABD & PELVIS W/O CONTRAST (09/02/19) CULTURE AEROBIC IDENTIFY (11/07/18) CULTURE OTHR SPECIMN AEROBIC (11/07/18) ECHO EXAM OF ABDOMEN (10/10/17) ELECTROCARDIOGRAM TRACING (05/29/18) EMERGENCY DEPT VISIT (07/11/19) EMERGENCY DEPT VISIT (05/29/18) GLUCOSE BLOOD TEST (09/18/19) HEPATITIS C AB TEST (03/04/19) HYDRATE IV INFUSION ADD-ON (07/11/19) IIV4 VACC NO PRSV 0.5 ML IM (05/29/18) INFLUENZA ASSAY W/OPTIC (09/18/19) LIPID PANEL (05/31/19) METABOLIC PANEL TOTAL CA (09/18/19) MICROBE SUSCEPTIBLE JEFFRY (11/07/18) PPSV23 VACC 2 YRS+ SUBQ/IM (05/29/18) RBC SED RATE AUTOMATED (10/25/16) RHEUMATOID FACTOR TEST QUAL (10/25/16) ROUTINE VENIPUNCTURE (09/18/19) SMEAR GRAM STAIN (11/07/18) THER/PROPH/DIAG INJ IV PUSH (11/07/18) THER/PROPH/DIAG INJ SC/IM (05/29/18) THER/PROPH/DIAG IV INF ADDON (05/29/18) THER/PROPH/DIAG IV INF INIT (07/11/19) TX/PRO/DX INJ NEW DRUG ADDON (07/11/19) TX/PRO/DX INJ SAME DRUG REGULATORY AND COMPLIANCE TECHNICIAN (05/29/18) URINALYSIS AUTO W/O SCOPE (07/11/19) URINALYSIS AUTO W/SCOPE (09/18/19) URINE CULTURE/COLONY COUNT (05/29/18) WITHDRAWAL OF ARTERIAL BLOOD (11/07/18) X-RAY EXAM ABDOMEN 1 VIEW (10/27/17) X-RAY EXAM CHEST 1 VIEW (11/07/18) X-RAY XM COLON 2CNTRST STD (11/11/17) X-RAY XM UPR GI TRC 1CNTRST (10/17/17) (1) Partial small bowel obstruction SNOMED Code(s): 063846092 Code(s): K56.600 - PARTIAL INTESTINAL OBSTRUCTION, UNSPECIFIED TO CAUSE Priority: High Current Visit: Yes (2) COPD (chronic obstructive pulmonary disease) SNOMED Code(s): 40447977 Code(s): J44.9 - CHRONIC OBSTRUCTIVE PULMONARY DISEASE, UNSPECIFIED Priority: Medium Current Visit: No Qualifiers: COPD type: unspecified COPD Qualified Code(s): J44.9 - Chronic obstructive pulmonary disease, unspecified (3) On home oxygen therapy SNOMED Code(s): 092908572552 Code(s): Z99.81 - DEPENDENCE ON SUPPLEMENTAL OXYGEN Priority: Medium Current Visit: No (4) Parastomal hernia SNOMED Code(s): 469880621 Code(s): K43.5 - PARASTOMAL HERNIA WITHOUT OBSTRUCTION OR GANGRENE Priority : High Current Visit: No Problem List Initiated/Reviewed/Updated: Yes Plan: Conservative therapy with bowel rest and IV fluid resuscitation. Patient does not require emergent surgery, but would benefit from keeping her appointment with Dr. Jones in [place] this coming Friday.
[2019-09-24] MEDS: Heparin Sodium 5,000 Units/ML Vial SUBCUT SCH (20:59)
[2019-09-24] MEDS: Ondansetron 4 MG/2 ML SDV IVPUSH PRN (20:59)
[2019-09-24] MEDS: LORazepam 2 MG/ML SDV IVPUSH PRN (21:00)
[2019-09-25] MEDS: Heparin Sodium 5,000 Units/ML Vial SUBCUT SCH ×3 (04:08→18:16)
[2019-09-25] MEDS: Ondansetron 4 MG/2 ML SDV IVPUSH PRN ×5 (04:09→22:25)
[2019-09-25] MEDS: LORazepam 2 MG/ML SDV IVPUSH PRN ×3 (04:10→18:10)
[2019-09-25] MEDS: Sodium Chloride 0.9% 1,000 ML IV SCH ×3 (04:23→19:33)
[2019-09-25 06:51] LABS: BLOOD UREA NITROGEN,BUN 5 mg/dL (7.0-18.0); CARBON DIOXIDE,CO2 26.5 mmol/L (21.0-32.0); CHLORIDE,CL 108 mmol/L (98-107); GLUCOSE RANDOM 80 mg/dL (74-106); POTASSIUM,K 3.6 mmol/L (3.5-5.1); SODIUM,NA 143 mmol/L (136-145)
--- NOTE | 2019-09-25 11:16 | PCM.CONSN ---
- General Info Date of Service: 09/25/19 Admission Dx/Problem (Free Text): Recurring intermittent small bowel obstruction Subjective Update: Patient is feeling much better today. She does report gas in her stomal appliance. Functional Status: Reports: Pain Controlled, Ambulating, Urinating - Review of Systems General: Reports: Weakness, Fatigue. Denies: Fever, Malaise, Chills HEENT: Reports: No Symptoms Pulmonary: Denies: Shortness of Breath, Cough Cardiovascular: Denies: Chest Pain Gastrointestinal: Reports: Abdominal Pain, Decreased Appetite, Flatus, Nausea. Denies: Constipation, Diarrhea, Melena, Vomiting Genitourinary: Denies: Dysuria, Frequency, Burning, Pain, Urgency Musculoskeletal: Reports: No Symptoms Skin: Denies: Cyanosis, Jaundice Neurological: Denies: Confusion, Dizziness, Headache Psychiatric: Denies: Confusion, Depression, Anxiety - Patient Data Vitals - Most Recent: Last Vital Signs Temp 97.9 F 09/25/19 07:40 Pulse 79 09/25/19 07:40 Resp 17 09/25/19 07:40 BP 117/62 09/25/19 07:40 Pulse Ox 95 09/25/19 07:40 Weight - Most Recent: 133 lb 13.129 oz I&O - Last 24 Hours: Intake & Output 09/24/19 09/25/19 09/25/19 19:59 03:59 11:59 Intake Total 1040 Output Total 800 Balance 240 Lab Results Last 24 Hours: Laboratory Results - last 24 hr 09/24/19 09/24/19 09/24/19 Range/Units 16:04 17:14 17:14 WBC 3.67 L (4.0-11.0) K/uL RBC 4.55 (4.30-5.90) M/uL Hgb 12.6 (12.0-16.0) g/dL Hct 39.1 (36.0-46.0) % MCV 85.9 (80.0-98.0) fL MCH 27.7 (27.0-32.0) pg MCHC 32.2 (31.0-37.0) g/dL RDW Std Deviation 50.1 (28.0-62.0) fl RDW Coeff of Shaq 16 H (11.0-15.0) % Plt Count 173 (150-400) K/uL MPV 10.10 (7.40-12.00) fL Neut % (Auto) 52.3 (48.0-80.0) % Lymph % (Auto) 34.1 (16.0-40.0) % [place] % (Auto) 11.2 (0.0-15.0) % Eos % (Auto) 1.9 (0.0-7.0) % Baso % (Auto) 0.5 (0.0-1.5) % Neut # (Auto) 1.9 (1.4-5.7) K/uL Lymph # (Auto) 1.3 (0.6-2.4) K/uL [place] # (Auto) 0.4 (0.0-0.8) K/uL Eos # (Auto) 0.1 (0.0-0.7) K/uL Baso # (Auto) 0.0 (0.0-0.1) K/uL Nucleated RBC % 0.0 /100WBC Nucleated RBCs # 0 K/uL Sodium 141 (136-145) mmol/L Potassium 3.2 L (3.5-5.1) mmol/L Chloride 103 (98-107) mmol/L Carbon Dioxide 30.3 (21.0-32.0) mmol/L BUN 6 L (7.0-18.0) mg/dL Creatinine 0.6 (0.6-1.0) mg/dL Est Cr Clr Drug Dosing 93.53 mL/min Estimated GFR (MDRD) > 60.0 ml/min Glucose 100 (74-106) mg/dL POC Glucose 79 (60-110) mg/dL Calcium 9.3 (8.5-10.1) mg/dL Total Bilirubin 0.6 (0.2-1.0) mg/dL AST 17 (15-37) IU/L ALT 20 (14-63) IU/L Alkaline Phosphatase 67 (46-116) U/L Total Protein 7.4 (6.4-8.2) g/dL Albumin 3.9 (3.4-5.0) g/dL Globulin 3.5 (2.6-4.0) g/dL Albumin/Globulin Ratio 1.1 (0.9-1.6) Urine Color Urine Appearance Urine pH (5.0-8.0) Ur Specific [place] (1.001-1.035) Urine Protein (NEGATIVE) mg/dL Urine Glucose (UA) (NEGATIVE) mg/dL Urine Ketones (NEGATIVE) mg/dL Urine Occult Blood (NEGATIVE) Urine Nitrite (NEGATIVE) Urine Bilirubin (NEGATIVE) Urine Urobilinogen (<2.0) EU/dL Ur Leukocyte Esterase (NEGATIVE) Urine RBC (0-2/HPF) Urine WBC (0-5/HPF) Ur Epithelial Cells (NONE-FEW) Urine Bacteria (NEGATIVE) Urine Mucus (NONE-MOD) 09/24/19 09/25/19 09/25/19 Range/Units 17:20 06:10 06:10 WBC 3.29 L (4.0-11.0) K/uL RBC 3.87 L (4.30-5.90) M/uL Hgb 10.7 L (12.0-16.0) g/dL Hct 33.3 L (36.0-46.0) % MCV 86.0 (80.0-98.0) fL MCH 27.6 (27.0-32.0) pg MCHC 32.1 (31.0-37.0) g/dL RDW Std Deviation 50.8 (28.0-62.0) fl RDW Coeff of Shaq 16 H (11.0-15.0) % Plt Count 159 (150-400) K/uL MPV 11.00 (7.40-12.00) fL Neut % (Auto) 28.6 L (48.0-80.0) % Lymph % (Auto) 55.0 H (16.0-40.0) % [place] % (Auto) 9.4 (0.0-15.0) % Eos % (Auto) 6.4 (0.0-7.0) % Baso % (Auto) 0.6 (0.0-1.5) % Neut # (Auto) 0.9 L (1.4-5.7) K/uL Lymph # (Auto) 1.8 (0.6-2.4) K/uL [place] # (Auto) 0.3 (0.0-0.8) K/uL Eos # (Auto) 0.2 (0.0-0.7) K/uL Baso # (Auto) 0.0 (0.0-0.1) K/uL Nucleated RBC % 0.0 /100WBC Nucleated RBCs # 0 K/uL Sodium 143 (136-145) mmol/L Potassium 3.6 (3.5-5.1) mmol/L Chloride 108 H (98-107) mmol/L Carbon Dioxide 26.5 (21.0-32.0) mmol/L BUN 5 L (7.0-18.0) mg/dL Creatinine 0.5 L (0.6-1.0) mg/dL Est Cr Clr Drug Dosing 114.65 mL/min Estimated GFR (MDRD) > 60.0 ml/min Glucose 80 (74-106) mg/dL POC Glucose (60-110) mg/dL Calcium 8.3 L (8.5-10.1) mg/dL Total Bilirubin (0.2-1.0) mg/dL AST (15-37) IU/L ALT (14-63) IU/L Alkaline Phosphatase (46-116) U/L Total Protein (6.4-8.2) g/dL Albumin (3.4-5.0) g/dL Globulin (2.6-4.0) g/dL Albumin/Globulin Ratio (0.9-1.6) Urine Color YELLOW Urine Appearance CLEAR Urine pH 7.5 (5.0-8.0) Ur Specific [place] 1.020 (1.001-1.035) Urine Protein NEGATIVE (NEGATIVE) mg/dL Urine Glucose (UA) NEGATIVE (NEGATIVE) mg/dL Urine Ketones NEGATIVE (NEGATIVE) mg/dL Urine Occult Blood NEGATIVE (NEGATIVE) Urine Nitrite NEGATIVE (NEGATIVE) Urine Bilirubin NEGATIVE (NEGATIVE) Urine Urobilinogen 0.2 (<2.0) EU/dL Ur Leukocyte Esterase NEGATIVE (NEGATIVE) Urine RBC 0-2 (0-2/HPF) Urine WBC 0-2 (0-5/HPF) Ur Epithelial Cells RARE (NONE-FEW) Urine Bacteria FEW (NEGATIVE) Urine Mucus LIGHT (NONE-MOD) Med Orders - Current: Current Medications Heparin Sodium (Porcine) (Heparin Sodium) 5,000 units SUBCUT Q8H [facility] Last Admin: 09/25/19 04:08 Dose: 5,000 units Sodium Chloride (Normal Saline) 1,000 mls @ 125 mls/hr IV ASDIRECTED [facility] Last Admin: 09/25/19 04:23 Dose: 125 mls/hr Lorazepam (Ativan) 1 mg IVPUSH Q6H PRN PRN Reason: agitation Last Admin: 09/25/19 09:40 Dose: 1 mg Morphine Sulfate (Morphine) 2 mg IVPUSH Q2H PRN PRN Reason: Pain (severe 7-10) Stop: 09/25/19 19:11 Ondansetron HCl (Zofran) 4 mg IVPUSH Q4H PRN PRN Reason: Nausea Last Admin: 09/25/19 09:35 Dose: 4 mg Sodium Chloride (Saline Flush) 10 ml FLUSH ASDIRECTED PRN PRN Reason: Keep Vein Open Last Admin: 09/24/19 17:18 Dose: 10 ml Sodium Chloride (Saline Flush) 2.5 ml FLUSH ASDIRECTED PRN PRN Reason: Keep Vein Open Last Admin: 09/24/19 17:19 Dose: 2.5 ml Discontinued Medications Sodium Chloride (Normal Saline) 1,000 mls @ 999 mls/hr IV .BOLUS ONE Stop: 09/24/19 17:55 Last Admin: 09/24/19 17:14 Dose: 999 mls/hr Sodium Chloride (Normal Saline) 1,000 mls @ 999 mls/hr IV .BOLUS ONE Stop: 09/24/19 20:04 Last Admin: 09/24/19 19:30 Dose: 999 mls/hr Potassium Chloride/Sodium Chloride (Normal Saline With 40 Meq Kcl) 1,000 mls @ 150 mls/hr IV ASDIRECTED [facility] Stop: 09/25/19 01:54 Last Admin: 09/24/19 21:01 Dose: 150 mls/hr Ondansetron HCl (Zofran Odt) 4 mg PO ONETIME ONE Stop: 09/24/19 16:56 Last Admin: 09/24/19 17:18 Dose: Not Given Ondansetron HCl (Zofran) 4 mg IVPUSH ONETIME ONE Stop: 09/24/19 17:19 Last Admin: 09/24/19 17:18 Dose: 4 mg Ondansetron HCl (Zofran) Confirm Administered Dose 4 mg .ROUTE .STK-MED ONE Stop: 09/24/19 17:18 Last Admin: 09/24/19 18:00 Dose: Not Given - Exam Quality Assessment: Supplemental Oxygen, DVT Prophylaxis. No: Central Line/PICC , Urine Catheter General: Alert, Oriented, Cooperative, No Acute Distress HEENT: Pupils Equal, Pupils Reactive, EOMI. No: Scleral Icterus Neck: Supple, Trachea Midline Lungs: Clear to Auscultation, Normal Respiratory Effort, Decreased Breath Sounds. No: Crackles, Rales, Rhonchi, Wheezing Cardiovascular: Regular Rate, Regular Rhythm, No Murmurs. No: Tachycardia GI/Abdominal Exam: Normal Bowel Sounds, Soft, Non-Tender, No Distention, Other ( Left-sided abdominal wall hernia at the site of her stoma is present.) (Female) Exam: Deferred Back Exam: Normal Inspection, Full Range of Motion Extremities: Normal Inspection, Normal Range of Motion, Non-Tender Skin: Warm, Dry, Intact Wound/Incisions: Healing Well Psy/Mental Status: Alert, Normal Affect, Normal Mood Sepsis Event Note - Evaluation Sepsis Screening Result: No Definite Risk - Focused Exam Vital Signs: Vital Signs Temp Pulse Resp BP Pulse Ox 09/25/19 07:40 97.9 F 79 17 117/62 95 09/25/19 04:00 97.6 F 16 141/74 H 95 09/25/19 00:00 97.7 F 79 16 136/77 92 L Date Exam was Performed: 09/25/19 Time Exam was Performed: 11:11 Consult PN Assessment/Plan Procedures: Procedures AIRWAY INHALATION TREATMENT (11/07/18) ANTINUCLEAR ANTIBODIES (10/25/16) ASSAY OF AMYLASE (07/14/17) ASSAY OF LACTIC ACID (09/18/19) ASSAY OF LIPASE (07/11/19) ASSAY OF TROPONIN QUANT (05/29/18) BLOOD CULTURE FOR BACTERIA (07/11/19) BLOOD GASES ANY COMBINATION (11/07/18) COMPLETE CBC W/AUTO DIFF WBC (09/18/19) COMPREHEN METABOLIC PANEL (09/18/19) CT ABD & PELV W/CONTRAST (09/18/19) CT ABD & PELVIS W/O CONTRAST (09/02/19) CULTURE AEROBIC IDENTIFY (11/07/18) CULTURE OTHR SPECIMN AEROBIC (11/07/18) ECHO EXAM OF ABDOMEN (10/10/17) ELECTROCARDIOGRAM TRACING (05/29/18) EMERGENCY DEPT VISIT (07/11/19) EMERGENCY DEPT VISIT (05/29/18) GLUCOSE BLOOD TEST (09/18/19) HEPATITIS C AB TEST (03/04/19) HYDRATE IV INFUSION ADD-ON (07/11/19) IIV4 VACC NO PRSV 0.5 ML IM (05/29/18) INFLUENZA ASSAY W/OPTIC (09/18/19) LIPID PANEL (05/31/19) METABOLIC PANEL TOTAL CA (09/18/19) MICROBE SUSCEPTIBLE JEFFRY (11/07/18) PPSV23 VACC 2 YRS+ SUBQ/IM (05/29/18) RBC SED RATE AUTOMATED (10/25/16) RHEUMATOID FACTOR TEST QUAL (10/25/16) ROUTINE VENIPUNCTURE (09/18/19) SMEAR GRAM STAIN (11/07/18) THER/PROPH/DIAG INJ IV PUSH (11/07/18) THER/PROPH/DIAG INJ SC/IM (05/29/18) THER/PROPH/DIAG IV INF ADDON (05/29/18) THER/PROPH/DIAG IV INF INIT (07/11/19) TX/PRO/DX INJ NEW DRUG ADDON (07/11/19) TX/PRO/DX INJ SAME DRUG [employer] (05/29/18) URINALYSIS AUTO W/O SCOPE (07/11/19) URINALYSIS AUTO W/SCOPE (09/18/19) URINE CULTURE/COLONY COUNT (05/29/18) WITHDRAWAL OF ARTERIAL BLOOD (11/07/18) X-RAY EXAM ABDOMEN 1 VIEW (10/27/17) X-RAY EXAM CHEST 1 VIEW (11/07/18) X-RAY XM COLON 2CNTRST STD (11/11/17) X-RAY XM UPR GI TRC 1CNTRST (10/17/17) (1) Partial small bowel obstruction SNOMED Code(s): 674932746 Code(s): K56.600 - PARTIAL INTESTINAL OBSTRUCTION, UNSPECIFIED TO CAUSE Priority: High Current Visit: Yes (2) COPD (chronic obstructive pulmonary disease) SNOMED Code(s): 94603613 Code(s): J44.9 - CHRONIC OBSTRUCTIVE PULMONARY DISEASE, UNSPECIFIED Priority: Medium Current Visit: No Qualifiers: COPD type: unspecified COPD Qualified Code(s): J44.9 - Chronic obstructive pulmonary disease, unspecified (3) On home oxygen therapy SNOMED Code(s): 455705177510 Code(s): Z99.81 - DEPENDENCE ON SUPPLEMENTAL OXYGEN Priority: Medium Current Visit: No (4) Parastomal hernia SNOMED Code(s): 247900108 Code(s): K43.5 - PARASTOMAL HERNIA WITHOUT OBSTRUCTION OR GANGRENE Priority : High Current Visit: No Qualifiers: Obstruction and gangrene presence: without obstruction or gangrene Qualified Code(s): K43.5 - Parastomal hernia without obstruction or gangrene Problem List Initiated/Reviewed/Updated: Yes My Orders Last 24 Hours: Patient is doing much better today. Air in stoma. Abdomen scaphoid and nontender. Patient can try clear liquids/Gatorade/Powerade if she desires. Plan to keep appointment in [place] this Friday. Have asked for Op note and Pathology report from surgery in [place] in June. Will put most recent CT scan on a disk for patient to take with to [place].
--- NOTE | 2019-09-25 16:54 | PCM.PN ---
<Sadie Christopher - Last Filed: 09/25/19 16:54> - General Info Date of Service: 09/25/19 Subjective Update: Bedside: no acute distress; passing flatus. Mentions requiring oxygen more than usual but is otherwise doing well Functional Status: Reports: Pain Controlled - Review of Systems General: Reports: No Symptoms HEENT: Reports: No Symptoms Pulmonary: Reports: No Symptoms Cardiovascular: Reports: No Symptoms Gastrointestinal: Reports: No Symptoms Genitourinary: Reports: No Symptoms Neurological: Reports: No Symptoms Psychiatric: Reports: No Symptoms - Patient Data Vitals - Most Recent: Last Vital Signs Temp 98.7 F 09/25/19 15:47 Pulse 80 09/25/19 15:47 Resp 16 09/25/19 15:47 BP 139/67 09/25/19 15:47 Pulse Ox 94 L 09/25/19 15:47 Weight - Most Recent: 60.7 kg I&O - Last 24 Hours: Intake & Output 09/25/19 09/25/19 09/25/19 06:59 14:59 22:59 Intake Total 1040 Output Total 800 Balance 240 Lab Results Last 24 Hours: Laboratory Results - last 24 hr 09/24/19 09/24/19 09/24/19 Range/Units 17:14 17:14 17:20 WBC 3.67 L (4.0-11.0) K/uL RBC 4.55 (4.30-5.90) M/uL Hgb 12.6 (12.0-16.0) g/dL Hct 39.1 (36.0-46.0) % MCV 85.9 (80.0-98.0) fL MCH 27.7 (27.0-32.0) pg MCHC 32.2 (31.0-37.0) g/dL RDW Std Deviation 50.1 (28.0-62.0) fl RDW Coeff of Shaq 16 H (11.0-15.0) % Plt Count 173 (150-400) K/uL MPV 10.10 (7.40-12.00) fL Neut % (Auto) 52.3 (48.0-80.0) % Lymph % (Auto) 34.1 (16.0-40.0) % [place] % (Auto) 11.2 (0.0-15.0) % Eos % (Auto) 1.9 (0.0-7.0) % Baso % (Auto) 0.5 (0.0-1.5) % Neut # (Auto) 1.9 (1.4-5.7) K/uL Lymph # (Auto) 1.3 (0.6-2.4) K/uL [place] # (Auto) 0.4 (0.0-0.8) K/uL Eos # (Auto) 0.1 (0.0-0.7) K/uL Baso # (Auto) 0.0 (0.0-0.1) K/uL Nucleated RBC % 0.0 /100WBC Nucleated RBCs # 0 K/uL Sodium 141 (136-145) mmol/L Potassium 3.2 L (3.5-5.1) mmol/L Chloride 103 (98-107) mmol/L Carbon Dioxide 30.3 (21.0-32.0) mmol/L BUN 6 L (7.0-18.0) mg/dL Creatinine 0.6 (0.6-1.0) mg/dL Est Cr Clr Drug Dosing 93.53 mL/min Estimated GFR (MDRD) > 60.0 ml/min Glucose 100 (74-106) mg/dL Calcium 9.3 (8.5-10.1) mg/dL Total Bilirubin 0.6 (0.2-1.0) mg/dL AST 17 (15-37) IU/L ALT 20 (14-63) IU/L Alkaline Phosphatase 67 (46-116) U/L Total Protein 7.4 (6.4-8.2) g/dL Albumin 3.9 (3.4-5.0) g/dL Globulin 3.5 (2.6-4.0) g/dL Albumin/Globulin Ratio 1.1 (0.9-1.6) Urine Color YELLOW Urine Appearance CLEAR Urine pH 7.5 (5.0-8.0) Ur Specific [place] 1.020 (1.001-1.035) Urine Protein NEGATIVE (NEGATIVE) mg/dL Urine Glucose (UA) NEGATIVE (NEGATIVE) mg/dL Urine Ketones NEGATIVE (NEGATIVE) mg/dL Urine Occult Blood NEGATIVE (NEGATIVE) Urine Nitrite NEGATIVE (NEGATIVE) Urine Bilirubin NEGATIVE (NEGATIVE) Urine Urobilinogen 0.2 (<2.0) EU/dL Ur Leukocyte Esterase NEGATIVE (NEGATIVE) Urine RBC 0-2 (0-2/HPF) Urine WBC 0-2 (0-5/HPF) Ur Epithelial Cells RARE (NONE-FEW) Urine Bacteria FEW (NEGATIVE) Urine Mucus LIGHT (NONE-MOD) 09/25/19 09/25/19 Range/Units 06:10 06:10 WBC 3.29 L (4.0-11.0) K/uL RBC 3.87 L (4.30-5.90) M/uL Hgb 10.7 L (12.0-16.0) g/dL Hct 33.3 L (36.0-46.0) % MCV 86.0 (80.0-98.0) fL MCH 27.6 (27.0-32.0) pg MCHC 32.1 (31.0-37.0) g/dL RDW Std Deviation 50.8 (28.0-62.0) fl RDW Coeff of Shaq 16 H (11.0-15.0) % Plt Count 159 (150-400) K/uL MPV 11.00 (7.40-12.00) fL Neut % (Auto) 28.6 L (48.0-80.0) % Lymph % (Auto) 55.0 H (16.0-40.0) % [place] % (Auto) 9.4 (0.0-15.0) % Eos % (Auto) 6.4 (0.0-7.0) % Baso % (Auto) 0.6 (0.0-1.5) % Neut # (Auto) 0.9 L (1.4-5.7) K/uL Lymph # (Auto) 1.8 (0.6-2.4) K/uL [place] # (Auto) 0.3 (0.0-0.8) K/uL Eos # (Auto) 0.2 (0.0-0.7) K/uL Baso # (Auto) 0.0 (0.0-0.1) K/uL Nucleated RBC % 0.0 /100WBC Nucleated RBCs # 0 K/uL Sodium 143 (136-145) mmol/L Potassium 3.6 (3.5-5.1) mmol/L Chloride 108 H (98-107) mmol/L Carbon Dioxide 26.5 (21.0-32.0) mmol/L BUN 5 L (7.0-18.0) mg/dL Creatinine 0.5 L (0.6-1.0) mg/dL Est Cr Clr Drug Dosing 114.65 mL/min Estimated GFR (MDRD) > 60.0 ml/min Glucose 80 (74-106) mg/dL Calcium 8.3 L (8.5-10.1) mg/dL Total Bilirubin (0.2-1.0) mg/dL AST (15-37) IU/L ALT (14-63) IU/L Alkaline Phosphatase (46-116) U/L Total Protein (6.4-8.2) g/dL Albumin (3.4-5.0) g/dL Globulin (2.6-4.0) g/dL Albumin/Globulin Ratio (0.9-1.6) Urine Color Urine Appearance Urine pH (5.0-8.0) Ur Specific [place] (1.001-1.035) Urine Protein (NEGATIVE) mg/dL Urine Glucose (UA) (NEGATIVE) mg/dL Urine Ketones (NEGATIVE) mg/dL Urine Occult Blood (NEGATIVE) Urine Nitrite (NEGATIVE) Urine Bilirubin (NEGATIVE) Urine Urobilinogen (<2.0) EU/dL Ur Leukocyte Esterase (NEGATIVE) Urine RBC (0-2/HPF) Urine WBC (0-5/HPF) Ur Epithelial Cells (NONE-FEW) Urine Bacteria (NEGATIVE) Urine Mucus (NONE-MOD) Med Orders - Current: Current Medications Heparin Sodium (Porcine) (Heparin Sodium) 5,000 units SUBCUT Q8H [facility] Last Admin: 09/25/19 11:38 Dose: 5,000 units Sodium Chloride (Normal Saline) 1,000 mls @ 125 mls/hr IV ASDIRECTED [facility] Last Admin: 09/25/19 11:35 Dose: 125 mls/hr Lorazepam (Ativan) 1 mg IVPUSH Q6H PRN PRN Reason: agitation Last Admin: 09/25/19 09:40 Dose: 1 mg Morphine Sulfate (Morphine) 2 mg IVPUSH Q2H PRN PRN Reason: Pain (severe 7-10) Stop: 09/25/19 19:11 Ondansetron HCl (Zofran) 4 mg IVPUSH Q4H PRN PRN Reason: Nausea Last Admin: 09/25/19 14:18 Dose: 4 mg Sodium Chloride (Saline Flush) 10 ml FLUSH ASDIRECTED PRN PRN Reason: Keep Vein Open Last Admin: 09/24/19 17:18 Dose: 10 ml Sodium Chloride (Saline Flush) 2.5 ml FLUSH ASDIRECTED PRN PRN Reason: Keep Vein Open Last Admin: 09/24/19 17:19 Dose: 2.5 ml Discontinued Medications Sodium Chloride (Normal Saline) 1,000 mls @ 999 mls/hr IV .BOLUS ONE Stop: 09/24/19 17:55 Last Admin: 09/24/19 17:14 Dose: 999 mls/hr Sodium Chloride (Normal Saline) 1,000 mls @ 999 mls/hr IV .BOLUS ONE Stop: 09/24/19 20:04 Last Admin: 09/24/19 19:30 Dose: 999 mls/hr Potassium Chloride/Sodium Chloride (Normal Saline With 40 Meq Kcl) 1,000 mls @ 150 mls/hr IV ASDIRECTED [facility] Stop: 09/25/19 01:54 Last Admin: 09/24/19 21:01 Dose: 150 mls/hr Ondansetron HCl (Zofran Odt) 4 mg PO ONETIME ONE Stop: 09/24/19 16:56 Last Admin: 09/24/19 17:18 Dose: Not Given Ondansetron HCl (Zofran) 4 mg IVPUSH ONETIME ONE Stop: 09/24/19 17:19 Last Admin: 09/24/19 17:18 Dose: 4 mg Ondansetron HCl (Zofran) Confirm Administered Dose 4 mg .ROUTE .STK-MED ONE Stop: 09/24/19 17:18 Last Admin: 09/24/19 18:00 Dose: Not Given - Exam Quality Assessment: Supplemental Oxygen General: Alert, Oriented, Cooperative, No Acute Distress HEENT: EOMI, Mucous Membr. Moist/[place] Neck: Supple Lungs: Clear to Auscultation, Normal Respiratory Effort Cardiovascular: Regular Rate, Regular Rhythm GI/Abdominal Exam: Soft, Non-Tender, Other (ostomy iin-situ; hernia stable; passing gas; no other acute pain appreciated ) Extremities: Normal Inspection Neurological: No New Focal Deficit Psy/Mental Status: Alert, Normal Affect, Normal Mood Sepsis Event Note - Evaluation Sepsis Screening Result: No Definite Risk - Focused Exam Vital Signs: Vital Signs Temp Pulse Resp BP Pulse Ox 09/25/19 15:47 98.7 F 80 16 139/67 94 L 09/25/19 12:00 98.1 F 81 14 133/70 94 L 09/25/19 07:40 97.9 F 79 17 117/62 95 Date Exam was Performed: 09/25/19 Time Exam was Performed: 16:54 - Problem List Review Problem List Initiated/Reviewed/Updated: Yes - My Orders Last 24 Hours: My Active Orders 09/26/19 Breakfast Clear Liquid Diet [DIET] - Plan Plan:: 58 yo female with past medical history of colostomy with large paracolostomy hernia who is being admitted for partial small bowel obstruction. We will treat with bowel rest and IV fluids. Dr. Urbina has been consulted by ED physician. Per Surgery : recommended Clear liquids in AM if tolerated; NPO now; IVF continue :125 ; we appreciate Dr Urbina's recommendation Wean o2 down appropriately <Gabriele Faulkner - Last Filed: 10/04/19 20:05> - Patient Data Vitals - Most Recent: Last Vital Signs Temp 36.9 C 09/27/19 11:00 Pulse 74 09/27/19 11:00 Resp 16 09/27/19 11:00 BP 118/72 09/27/19 11:00 Pulse Ox 93 L 09/27/19 11:00 Med Orders - Current: Current Medications Discontinued Medications Docusate Sodium (Colace) 100 mg PO BID [facility] Last Admin: 09/27/19 09:33 Dose: 100 mg Heparin Sodium (Porcine) (Heparin Sodium) 5,000 units SUBCUT Q8H [facility] Last Admin: 09/27/19 11:05 Dose: 5,000 units Sodium Chloride (Normal Saline) 1,000 mls @ 999 mls/hr IV .BOLUS ONE Stop: 09/24/19 17:55 Last Admin: 09/24/19 17:14 Dose: 999 mls/hr Sodium Chloride (Normal Saline) 1,000 mls @ 999 mls/hr IV .BOLUS ONE Stop: 09/24/19 20:04 Last Admin: 09/24/19 19:30 Dose: 999 mls/hr Potassium Chloride/Sodium Chloride (Normal Saline With 40 Meq Kcl) 1,000 mls @ 150 mls/hr IV ASDIRECTED [facility] Stop: 09/25/19 01:54 Last Admin: 09/24/19 21:01 Dose: 150 mls/hr Sodium Chloride (Normal Saline) 1,000 mls @ 125 mls/hr IV ASDIRECTED [facility] Last Admin: 09/27/19 11:09 Dose: 125 mls/hr Potassium Chloride 40 meq/ (Sodium Chloride) 270 mls @ 67.5 mls/hr IV ONETIME ONE Stop: 09/26/19 14:29 Last Admin: 09/26/19 10:53 Dose: 67.5 mls/hr Potassium Chloride 40 meq/ (Sodium Chloride) 270 mls @ 67.5 mls/hr IV ONETIME ONE Stop: 09/27/19 12:44 Last Admin: 09/27/19 09:34 Dose: 67.5 mls/hr Lorazepam (Ativan) 1 mg IVPUSH Q6H PRN PRN Reason: agitation Last Admin: 09/27/19 09:26 Dose: 1 mg Morphine Sulfate (Morphine) 2 mg IVPUSH Q2H PRN PRN Reason: Pain (severe 7-10) Stop: 09/25/19 19:11 Ondansetron HCl (Zofran Odt) 4 mg PO ONETIME ONE Stop: 09/24/19 16:56 Last Admin: 09/24/19 17:18 Dose: Not Given Ondansetron HCl (Zofran) 4 mg IVPUSH ONETIME ONE Stop: 09/24/19 17:19 Last Admin: 09/24/19 17:18 Dose: 4 mg Ondansetron HCl (Zofran) Confirm Administered Dose 4 mg .ROUTE .STK-MED ONE Stop: 09/24/19 17:18 Last Admin: 09/24/19 18:00 Dose: Not Given Ondansetron HCl (Zofran) 4 mg IVPUSH Q4H PRN PRN Reason: Nausea Last Admin: 09/27/19 13:49 Dose: 4 mg Sodium Chloride (Saline Flush) 10 ml FLUSH ASDIRECTED PRN PRN Reason: Keep Vein Open Last Admin: 09/24/19 17:18 Dose: 10 ml Sodium Chloride (Saline Flush) 2.5 ml FLUSH ASDIRECTED PRN PRN Reason: Keep Vein Open Last Admin: 09/24/19 17:19 Dose: 2.5 ml - Problem List & Annotations (1) Dehydration SNOMED Code(s): 50265281 Code(s): E86.0 - DEHYDRATION Status: Acute (2) Partial small bowel obstruction SNOMED Code(s): 974014282 Code(s): K56.600 - PARTIAL INTESTINAL OBSTRUCTION, UNSPECIFIED TO CAUSE Status: Acute Priority: High (3) Nausea vomiting and diarrhea SNOMED Code(s): 8742360 Code(s): R11.2 - NAUSEA WITH VOMITING, UNSPECIFIED; R19.7 - DIARRHEA, UNSPECIFIED Status: Acute - Plan Plan:: I have seen and evaluated the patient and agree with the residents note unless specified in my note
[2019-09-26] MEDS: LORazepam 2 MG/ML SDV IVPUSH PRN ×4 (00:15→18:31)
[2019-09-26] MEDS: Heparin Sodium 5,000 Units/ML Vial SUBCUT SCH ×3 (04:37→18:31)
[2019-09-26] MEDS: Ondansetron 4 MG/2 ML SDV IVPUSH PRN ×4 (04:37→18:32)
[2019-09-26] MEDS: Sodium Chloride 0.9% 1,000 ML IV SCH ×3 (04:39→19:31)
[2019-09-26 06:47] LABS: BLOOD UREA NITROGEN,BUN 3 mg/dL (7.0-18.0); CARBON DIOXIDE,CO2 27.5 mmol/L (21.0-32.0); CHLORIDE,CL 105 mmol/L (98-107); GLUCOSE RANDOM 80 mg/dL (74-106); POTASSIUM,K 3.3 mmol/L (3.5-5.1); SODIUM,NA 141 mmol/L (136-145)
--- NOTE | 2019-09-26 10:51 | PCM.CONSN ---
- General Info Date of Service: 09/26/19 Admission Dx/Problem (Free Text): recurrent intermittent small bowel obstruction Subjective Update: Patient states she is feeling better. No nausea or vomiting. She has tolerated clear liquids today. Still has air in the stomal appliance. No liquid or solid stool yet. Functional Status: Reports: Pain Controlled, Tolerating Diet, Ambulating, Urinating - Review of Systems General: Reports: Weakness, Malaise. Denies: Fever HEENT: Reports: No Symptoms Pulmonary: Denies: Shortness of Breath, Cough Cardiovascular: Denies: Chest Pain Gastrointestinal: Reports: Abdominal Pain, Decreased Appetite. Denies: Diarrhea , Nausea, Vomiting Genitourinary: Denies: Dysuria, Frequency, Burning, Pain, Urgency Musculoskeletal: Reports: No Symptoms Skin: Reports: No Symptoms Neurological: Reports: No Symptoms Psychiatric: Reports: No Symptoms - Patient Data Vitals - Most Recent: Last Vital Signs Temp 98.1 F 09/26/19 08:00 Pulse 77 09/26/19 08:00 Resp 16 09/26/19 08:00 BP 137/67 09/26/19 08:00 Pulse Ox 94 L 09/26/19 08:00 Weight - Most Recent: 133 lb 13.129 oz I&O - Last 24 Hours: Intake & Output 09/25/19 09/26/19 09/26/19 19:59 03:59 11:59 Intake Total 1461 1250 Output Total 2000 1700 Balance -539 -450 Lab Results Last 24 Hours: Laboratory Results - last 24 hr 09/26/19 09/26/19 Range/Units 06:10 06:10 WBC 3.60 L (4.0-11.0) K/uL RBC 4.05 L (4.30-5.90) M/uL Hgb 11.2 L (12.0-16.0) g/dL Hct 34.8 L (36.0-46.0) % MCV 85.9 (80.0-98.0) fL MCH 27.7 (27.0-32.0) pg MCHC 32.2 (31.0-37.0) g/dL RDW Std Deviation 49.7 (28.0-62.0) fl RDW Coeff of Shaq 16 H (11.0-15.0) % Plt Count 165 (150-400) K/uL MPV 10.50 (7.40-12.00) fL Neut % (Auto) 35.8 L (48.0-80.0) % Lymph % (Auto) 47.8 H (16.0-40.0) % [place] % (Auto) 10.3 (0.0-15.0) % Eos % (Auto) 5.0 (0.0-7.0) % Baso % (Auto) 1.1 (0.0-1.5) % Neut # (Auto) 1.3 L (1.4-5.7) K/uL Lymph # (Auto) 1.7 (0.6-2.4) K/uL [place] # (Auto) 0.4 (0.0-0.8) K/uL Eos # (Auto) 0.2 (0.0-0.7) K/uL Baso # (Auto) 0.0 (0.0-0.1) K/uL Nucleated RBC % 0.0 /100WBC Nucleated RBCs # 0 K/uL Sodium 141 (136-145) mmol/L Potassium 3.3 L (3.5-5.1) mmol/L Chloride 105 (98-107) mmol/L Carbon Dioxide 27.5 (21.0-32.0) mmol/L BUN 3 L (7.0-18.0) mg/dL Creatinine 0.6 (0.6-1.0) mg/dL Est Cr Clr Drug Dosing 95.55 mL/min Estimated GFR (MDRD) > 60.0 ml/min Glucose 80 (74-106) mg/dL Calcium 8.3 L (8.5-10.1) mg/dL Total Bilirubin 0.8 (0.2-1.0) mg/dL AST 20 (15-37) IU/L ALT 23 (14-63) IU/L Alkaline Phosphatase 62 (46-116) U/L Total Protein 6.2 L (6.4-8.2) g/dL Albumin 3.3 L (3.4-5.0) g/dL Globulin 2.9 (2.6-4.0) g/dL Albumin/Globulin Ratio 1.1 (0.9-1.6) Med Orders - Current: Current Medications Heparin Sodium (Porcine) (Heparin Sodium) 5,000 units SUBCUT Q8H [facility] Last Admin: 09/26/19 04:37 Dose: 5,000 units Sodium Chloride (Normal Saline) 1,000 mls @ 125 mls/hr IV ASDIRECTED [facility] Last Admin: 09/26/19 04:39 Dose: 125 mls/hr Potassium Chloride 40 meq/ (Sodium Chloride) 270 mls @ 67.5 mls/hr IV ONETIME ONE Stop: 09/26/19 14:29 Lorazepam (Ativan) 1 mg IVPUSH Q6H PRN PRN Reason: agitation Last Admin: 09/26/19 06:23 Dose: 1 mg Ondansetron HCl (Zofran) 4 mg IVPUSH Q4H PRN PRN Reason: Nausea Last Admin: 09/26/19 09:36 Dose: 4 mg Sodium Chloride (Saline Flush) 10 ml FLUSH ASDIRECTED PRN PRN Reason: Keep Vein Open Last Admin: 09/24/19 17:18 Dose: 10 ml Sodium Chloride (Saline Flush) 2.5 ml FLUSH ASDIRECTED PRN PRN Reason: Keep Vein Open Last Admin: 09/24/19 17:19 Dose: 2.5 ml Discontinued Medications Sodium Chloride (Normal Saline) 1,000 mls @ 999 mls/hr IV .BOLUS ONE Stop: 09/24/19 17:55 Last Admin: 09/24/19 17:14 Dose: 999 mls/hr Sodium Chloride (Normal Saline) 1,000 mls @ 999 mls/hr IV .BOLUS ONE Stop: 09/24/19 20:04 Last Admin: 09/24/19 19:30 Dose: 999 mls/hr Potassium Chloride/Sodium Chloride (Normal Saline With 40 Meq Kcl) 1,000 mls @ 150 mls/hr IV ASDIRECTED [facility] Stop: 09/25/19 01:54 Last Admin: 09/24/19 21:01 Dose: 150 mls/hr Morphine Sulfate (Morphine) 2 mg IVPUSH Q2H PRN PRN Reason: Pain (severe 7-10) Stop: 09/25/19 19:11 Ondansetron HCl (Zofran Odt) 4 mg PO ONETIME ONE Stop: 09/24/19 16:56 Last Admin: 09/24/19 17:18 Dose: Not Given Ondansetron HCl (Zofran) 4 mg IVPUSH ONETIME ONE Stop: 09/24/19 17:19 Last Admin: 09/24/19 17:18 Dose: 4 mg Ondansetron HCl (Zofran) Confirm Administered Dose 4 mg .ROUTE .STK-MED ONE Stop: 09/24/19 17:18 Last Admin: 09/24/19 18:00 Dose: Not Given - Exam Quality Assessment: Supplemental Oxygen General: Alert, Oriented, Cooperative, No Acute Distress HEENT: Pupils Equal, Pupils Reactive Neck: Supple Cardiovascular: Regular Rate, Regular Rhythm GI/Abdominal Exam: Normal Bowel Sounds, Soft, Non-Tender, No Distention, Hernia (parastomal). No: Guarding, Rigid, Rebound, Tender Skin: Warm, Dry, Intact Neurological: No New Focal Deficit Psy/Mental Status: Alert, Normal Affect, Normal Mood Sepsis Event Note - Evaluation Sepsis Screening Result: No Definite Risk - Focused Exam Vital Signs: Vital Signs Temp Pulse Resp BP Pulse Ox 09/26/19 08:00 98.1 F 77 16 137/67 94 L 09/26/19 04:15 81 18 142/68 H 95 09/26/19 04:00 97.8 F 76 17 152/64 H 95 09/26/19 00:00 98.3 F 73 17 138/74 96 Date Exam was Performed: 09/26/19 Time Exam was Performed: 11:11 Consult PN Assessment/Plan Procedures: Procedures AIRWAY INHALATION TREATMENT (11/07/18) ANTINUCLEAR ANTIBODIES (10/25/16) ASSAY OF AMYLASE (07/14/17) ASSAY OF LACTIC ACID (09/18/19) ASSAY OF LIPASE (07/11/19) ASSAY OF TROPONIN QUANT (05/29/18) BLOOD CULTURE FOR BACTERIA (07/11/19) BLOOD GASES ANY COMBINATION (11/07/18) COMPLETE CBC W/AUTO DIFF WBC (09/18/19) COMPREHEN METABOLIC PANEL (09/18/19) CT ABD & PELV W/CONTRAST (09/18/19) CT ABD & PELVIS W/O CONTRAST (09/02/19) CULTURE AEROBIC IDENTIFY (11/07/18) CULTURE OTHR SPECIMN AEROBIC (11/07/18) ECHO EXAM OF ABDOMEN (10/10/17) ELECTROCARDIOGRAM TRACING (05/29/18) EMERGENCY DEPT VISIT (07/11/19) EMERGENCY DEPT VISIT (05/29/18) GLUCOSE BLOOD TEST (09/18/19) HEPATITIS C AB TEST (03/04/19) HYDRATE IV INFUSION ADD-ON (07/11/19) IIV4 VACC NO PRSV 0.5 ML IM (05/29/18) INFLUENZA ASSAY W/OPTIC (09/18/19) LIPID PANEL (05/31/19) METABOLIC PANEL TOTAL CA (09/18/19) MICROBE SUSCEPTIBLE JEFFRY (11/07/18) PPSV23 VACC 2 YRS+ SUBQ/IM (05/29/18) RBC SED RATE AUTOMATED (10/25/16) RHEUMATOID FACTOR TEST QUAL (10/25/16) ROUTINE VENIPUNCTURE (09/18/19) SMEAR GRAM STAIN (11/07/18) THER/PROPH/DIAG INJ IV PUSH (11/07/18) THER/PROPH/DIAG INJ SC/IM (05/29/18) THER/PROPH/DIAG IV INF ADDON (05/29/18) THER/PROPH/DIAG IV INF INIT (07/11/19) TX/PRO/DX INJ NEW DRUG ADDON (07/11/19) TX/PRO/DX INJ SAME DRUG 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) URINALYSIS AUTO W/O SCOPE (07/11/19) URINALYSIS AUTO W/SCOPE (09/18/19) URINE CULTURE/COLONY COUNT (05/29/18) WITHDRAWAL OF ARTERIAL BLOOD (11/07/18) X-RAY EXAM ABDOMEN 1 VIEW (10/27/17) X-RAY EXAM CHEST 1 VIEW (11/07/18) X-RAY XM COLON 2CNTRST STD (11/11/17) X-RAY XM UPR GI TRC 1CNTRST (10/17/17) (1) Partial small bowel obstruction SNOMED Code(s): 428945956 Code(s): K56.600 - PARTIAL INTESTINAL OBSTRUCTION, UNSPECIFIED TO CAUSE Priority: High Current Visit: Yes (2) COPD (chronic obstructive pulmonary disease) SNOMED Code(s): 61621877 Code(s): J44.9 - CHRONIC OBSTRUCTIVE PULMONARY DISEASE, UNSPECIFIED Priority: Medium Current Visit: No Qualifiers: COPD type: unspecified COPD Qualified Code(s): J44.9 - Chronic obstructive pulmonary disease, unspecified (3) On home oxygen therapy SNOMED Code(s): 344657071230 Code(s): Z99.81 - DEPENDENCE ON SUPPLEMENTAL OXYGEN Priority: Medium Current Visit: No (4) Parastomal hernia SNOMED Code(s): 266316759 Code(s): K43.5 - PARASTOMAL HERNIA WITHOUT OBSTRUCTION OR GANGRENE Priority : High Current Visit: No Qualifiers: Obstruction and gangrene presence: without obstruction or gangrene Qualified Code(s): K43.5 - Parastomal hernia without obstruction or gangrene Problem List Initiated/Reviewed/Updated: Yes Plan: Patient has remained hemodynamically stable. Tolerating clear liquids. No further nausea or vomiting. Still has air in stomal appliance. No liquid or solid stool yet. I feel it would be safe for her to travel by private vehicle to her appointment with Dr. Jones in [place].
--- NOTE | 2019-09-26 13:29 | PCM.PN ---
- General Info Date of Service: 09/26/19 Admission Dx/Problem (Free Text): recurrent intermittent small bowel obstruction Subjective Update: Patient states she is feeling better. tolerating liquid diet, passing gas only , no stools yet - Review of Systems General: Denies: Fever, Weakness, Fatigue Pulmonary: Denies: Shortness of Breath, Pleuritic Chest Pain Cardiovascular: Denies: Chest Pain, Palpitations Gastrointestinal: Reports: Flatus, Nausea. Denies: Abdominal Pain, Decreased Appetite, Diarrhea, Vomiting Genitourinary: Denies: Dysuria, Frequency Musculoskeletal: Denies: Neck Pain, Shoulder Pain, Arm Pain - Patient Data Vitals - Most Recent: Last Vital Signs Temp 36.9 C 09/26/19 12:00 Pulse 77 09/26/19 12:00 Resp 18 09/26/19 12:00 BP 149/68 H 09/26/19 12:00 Pulse Ox 94 L 09/26/19 12:00 Weight - Most Recent: 60.7 kg I&O - Last 24 Hours: Intake & Output 09/25/19 09/26/19 09/26/19 22:59 06:59 14:59 Intake Total 1461 1250 Output Total 1999 1700 Balance -539 -450 Lab Results Last 24 Hours: Laboratory Results - last 24 hr 09/26/19 09/26/19 09/26/19 Range/Units 06:10 06:10 11:45 WBC 3.60 L (4.0-11.0) K/uL RBC 4.05 L (4.30-5.90) M/uL Hgb 11.2 L (12.0-16.0) g/dL Hct 34.8 L (36.0-46.0) % MCV 85.9 (80.0-98.0) fL MCH 27.7 (27.0-32.0) pg MCHC 32.2 (31.0-37.0) g/dL RDW Std Deviation 49.7 (28.0-62.0) fl RDW Coeff of Shaq 16 H (11.0-15.0) % Plt Count 165 (150-400) K/uL MPV 10.50 (7.40-12.00) fL Neut % (Auto) 35.8 L (48.0-80.0) % Lymph % (Auto) 47.8 H (16.0-40.0) % [place] % (Auto) 10.3 (0.0-15.0) % Eos % (Auto) 5.0 (0.0-7.0) % Baso % (Auto) 1.1 (0.0-1.5) % Neut # (Auto) 1.3 L (1.4-5.7) K/uL Lymph # (Auto) 1.7 (0.6-2.4) K/uL [place] # (Auto) 0.4 (0.0-0.8) K/uL Eos # (Auto) 0.2 (0.0-0.7) K/uL Baso # (Auto) 0.0 (0.0-0.1) K/uL Nucleated RBC % 0.0 /100WBC Nucleated RBCs # 0 K/uL Sodium 141 (136-145) mmol/L Potassium 3.3 L (3.5-5.1) mmol/L Chloride 105 (98-107) mmol/L Carbon Dioxide 27.5 (21.0-32.0) mmol/L BUN 3 L (7.0-18.0) mg/dL Creatinine 0.6 (0.6-1.0) mg/dL Est Cr Clr Drug Dosing 95.55 mL/min Estimated GFR (MDRD) > 60.0 ml/min Glucose 80 (74-106) mg/dL POC Glucose 81 (60-110) mg/dL Calcium 8.3 L (8.5-10.1) mg/dL Total Bilirubin 0.8 (0.2-1.0) mg/dL AST 20 (15-37) IU/L ALT 23 (14-63) IU/L Alkaline Phosphatase 62 (46-116) U/L Total Protein 6.2 L (6.4-8.2) g/dL Albumin 3.3 L (3.4-5.0) g/dL Globulin 2.9 (2.6-4.0) g/dL Albumin/Globulin Ratio 1.1 (0.9-1.6) Med Orders - Current: Current Medications Docusate Sodium (Colace) 100 mg PO BID PENDING SALE TO [facility] Heparin Sodium (Porcine) (Heparin Sodium) 5,000 units SUBCUT Q8H [facility]ENDING [facility] TO [facility] Last Admin: 09/26/19 11:14 Dose: 5,000 units Sodium Chloride (Normal Saline) 1,000 mls @ 125 mls/hr IV ASDIRECTED [facility]ENDING [facility] TO [facility] Last Admin: 09/26/19 10:52 Dose: 125 mls/hr Potassium Chloride 40 meq/ (Sodium Chloride) 270 mls @ 67.5 mls/hr IV ONETIME ONE Stop: 09/26/19 14:29 Last Admin: 09/26/19 10:53 Dose: 67.5 mls/hr Lorazepam (Ativan) 1 mg IVPUSH Q6H PRN PRN Reason: agitation Last Admin: 09/26/19 12:06 Dose: 1 mg Ondansetron HCl (Zofran) 4 mg IVPUSH Q4H PRN PRN Reason: Nausea Last Admin: 09/26/19 13:15 Dose: 4 mg Sodium Chloride (Saline Flush) 10 ml FLUSH ASDIRECTED PRN PRN Reason: Keep Vein Open Last Admin: 09/24/19 17:18 Dose: 10 ml Sodium Chloride (Saline Flush) 2.5 ml FLUSH ASDIRECTED PRN PRN Reason: Keep Vein Open Last Admin: 09/24/19 17:19 Dose: 2.5 ml Discontinued Medications Sodium Chloride (Normal Saline) 1,000 mls @ 999 mls/hr IV .BOLUS ONE Stop: 09/24/19 17:55 Last Admin: 09/24/19 17:14 Dose: 999 mls/hr Sodium Chloride (Normal Saline) 1,000 mls @ 999 mls/hr IV .BOLUS ONE Stop: 09/24/19 20:04 Last Admin: 09/24/19 19:30 Dose: 999 mls/hr Potassium Chloride/Sodium Chloride (Normal Saline With 40 Meq Kcl) 1,000 mls @ 150 mls/hr IV ASDIRECTED [facility] TO [facility] Stop: 09/25/19 01:54 Last Admin: 09/24/19 21:01 Dose: 150 mls/hr Morphine Sulfate (Morphine) 2 mg IVPUSH Q2H PRN PRN Reason: Pain (severe 7-10) Stop: 09/25/19 19:11 Ondansetron HCl (Zofran Odt) 4 mg PO ONETIME ONE Stop: 09/24/19 16:56 Last Admin: 09/24/19 17:18 Dose: Not Given Ondansetron HCl (Zofran) 4 mg IVPUSH ONETIME ONE Stop: 09/24/19 17:19 Last Admin: 09/24/19 17:18 Dose: 4 mg Ondansetron HCl (Zofran) Confirm Administered Dose 4 mg .ROUTE .STK-MED ONE Stop: 09/24/19 17:18 Last Admin: 09/24/19 18:00 Dose: Not Given - Exam General: Alert, Oriented, Cooperative Neck: Supple Lungs: Clear to Auscultation, Normal Respiratory Effort Cardiovascular: Regular Rate, Regular Rhythm GI/Abdominal Exam: Soft, No Distention, Guarding, Abnormal Bowel Sounds, Hernia. No: Distended, Hepatomegaly, Splenomegaly Peripheral Pulses: 3+: Dorsalis Pedis (L), Dorsalis Pedis (R) Skin: Warm, Dry Wound/Incisions: Healing Well Psy/Mental Status: Alert, Normal Affect Sepsis Event Note - Evaluation Sepsis Screening Result: No Definite Risk - Focused Exam Vital Signs: Vital Signs Temp Pulse Resp BP Pulse Ox 09/26/19 12:00 36.9 C 77 18 149/68 H 94 L 09/26/19 08:00 36.7 C 77 16 137/67 94 L 09/26/19 04:15 81 18 142/68 H 95 09/26/19 04:00 36.6 C 76 17 152/64 H 95 Date Exam was Performed: 10/04/19 Time Exam was Performed: 20:05 - Problem List & Annotations (1) Dehydration SNOMED Code(s): 85674117 Code(s): E86.0 - DEHYDRATION Status: Acute (2) Partial small bowel obstruction SNOMED Code(s): 026174671 Code(s): K56.600 - PARTIAL INTESTINAL OBSTRUCTION, UNSPECIFIED TO CAUSE Status: Acute Priority: High (3) Nausea vomiting and diarrhea SNOMED Code(s): 9287486 Code(s): R11.2 - NAUSEA WITH VOMITING, UNSPECIFIED; R19.7 - DIARRHEA, UNSPECIFIED Status: Acute - Problem List Review Problem List Initiated/Reviewed/Updated: Yes - My Orders Last 24 Hours: My Active Orders 09/26/19 10:30 Potassium Chloride 40 meq Sodium Chloride 0.9% [Normal Saline] 250 ml IV ONETIME 09/26/19 21:00 Docusate Sodium [Colace] 100 mg PO BID - Plan Plan:: 58 yo female with past medical history of colostomy with large paracolostomy hernia who is being admitted for partial small bowel obstruction. Tolerating clear liquids, will continue clears for now, slight nausea this AM, but no vomiting Restart Colace Appreciate surgery recs Possible d/c dashawn for further evaluation as [place] by her surgeon Replete K continue to monitor
[2019-09-26] MEDS: Docusate Sodium 100 MG Cap PO SCH (21:18)
[2019-09-27] MEDS: Ondansetron 4 MG/2 ML SDV IVPUSH PRN ×3 (00:12→13:49)
[2019-09-27] MEDS: Heparin Sodium 5,000 Units/ML Vial SUBCUT SCH ×2 (02:28→11:05)
[2019-09-27] MEDS: LORazepam 2 MG/ML SDV IVPUSH PRN ×2 (02:30→09:26)
[2019-09-27] MEDS: Sodium Chloride 0.9% 1,000 ML IV SCH ×2 (02:38→11:09)
[2019-09-27 06:16] LABS: BLOOD UREA NITROGEN,BUN 2 mg/dL (7.0-18.0); CARBON DIOXIDE,CO2 26.9 mmol/L (21.0-32.0); CHLORIDE,CL 107 mmol/L (98-107); GLUCOSE RANDOM 81 mg/dL (74-106); POTASSIUM,K 3.2 mmol/L (3.5-5.1); SODIUM,NA 142 mmol/L (136-145)
[2019-09-27] MEDS: Docusate Sodium 100 MG Cap PO SCH (09:33)
--- NOTE | 2019-09-27 15:09 | PCM.DCSUM1 ---
<Sadie Christopher - Last Filed: 09/27/19 15:16> Discharge Summary - Hospital Course Free Text/Narrative:: Discharge summary Admission diagnoses: Intractable nausea vomiting in the setting of small bowel obstruction w. paracolostomy w/ hernia [facility] Consultations: Dr. Bhavesh Urbina of Surgery Procedures:None Hospital course: Patient is a 58-year-old female with a significant past medical history of colostomy w/ hernia status post bowel perforation in June 2019; recently admitted on September 18 for partial small bowel obstruction. Returning with similar symptoms of nausea and vomiting and low ostomy output. Patient reports passing gas however no stool since Friday. Repeat CT scan showed some mild small bowel obstruction. Dr. Bhavesh Urbina of surgery was consulted recommended keeping patient n.p.o. for now and IV fluids. Following day patient 's diet was advanced to clear liquids with moderate response and nausea; patient was placed on Zofran .. Patient was discharged with Zofran as needed ; patient already has a scheduled appointment with [facility] where her ostomy was placed ; patient does have a stable hernia ; possibly requiring revision. Patient discharged in a stable condition. Electrolytes repleted as needed: low potassium ; given 40 K . Discharge condition:Stable Disposition: Home Follow-up:PCP Sal[facility] SU General Surgery/colo-rectal surgeon - Discharge Data Discharge Date: 09/27/19 Discharge Disposition: Home, Self-Care 01 Condition: Stable - Referral to Home Health Primary Care Physician: Yaw Loza MD - Patient Summary/Data Consults: Consultations 09/24/19 19:09 Consult to Physician [CONS] Routine - Patient Instructions Diet: Clear Liquid Diet Notify Provider of: Fever, Increased Pain, Drainage, Nausea and/or Vomiting Other/Special Instructions: Monitor BP at home, should bee less than 140 on top and less than 90 on bottom. - Discharge Plan *PRESCRIPTION DRUG MONITORING PROGRAM REVIEWED*: Not Applicable *COPY OF PRESCRIPTION DRUG MONITORING REPORT IN PATIENT CHELSIE: Not Applicable Prescriptions/Med Rec: Ondansetron [Zofran Odt] 8 mg PO Q6H PRN 3 Days #12 tab.rapdis PRN Reason: Nausea Home Medications: Home Meds ALPRAZolam [Xanax] 2 mg PO TID PRN 05/29/18 [History] Albuterol/Ipratropium [Combivent Respimat] 1 puff IH QID PRN 05/29/18 [History] Budesonide [Pulmicort] 1 dose INH BEDTIME 11/04/18 [History] Fluticasone Propionate [Flonase] 2 puff NASBOTH DAILY 11/04/18 [History] busPIRone [Buspar] 15 mg PO BID 11/04/18 [History] Ondansetron [Zofran ODT] 4 mg PO Q6H PRN 08/04/19 [History] Rosuvastatin [Crestor] 5 mg PO BEDTIME 08/04/19 [History] Budesonide/Formoterol Fumarate [Symbicort 160-4.5 Mcg Inhaler] 6 gm IH BID 30 Days #1 hfa.aer.ad 08/06/19 [Rx] Iron Polysaccharides Complex [Ferrex 150] 150 mg PO DAILY #30 cap 08/06/19 [Rx] Docusate Sodium [Colace] 100 mg PO BID 09/18/19 [History] Ondansetron [Zofran Odt] 8 mg PO Q6H PRN 3 Days #12 tab.rapdis 09/27/19 [Rx] Oxygen Therapy Mode: Room Air Patient Handouts: Ondansetron tablets, Small Bowel Obstruction, [id number] Referrals: Yaw Loza MD [Primary Care Provider] - 10/04/19 9:00 am - Discharge Summary/Plan Comment DC Time >30 min.: No - Patient Data Vitals - Most Recent: Last Vital Signs Temp 98.4 F 09/27/19 11:00 Pulse 74 09/27/19 11:00 Resp 16 09/27/19 11:00 BP 118/72 09/27/19 11:00 Pulse Ox 93 L 09/27/19 11:00 Weight - Most Recent: 60.7 kg I&O - Last 24 hours: Intake & Output 09/27/19 09/27/19 09/27/19 06:59 14:59 22:59 Intake Total 1100 3108 Output Total 2700 800 Balance -1600 2308 Lab Results - Last 24 hrs: Laboratory Results - last 24 hr 09/27/19 09/27/19 Range/Units 05:35 05:35 WBC 3.36 L (4.0-11.0) K/uL RBC 3.85 L (4.30-5.90) M/uL Hgb 10.6 L (12.0-16.0) g/dL Hct 32.9 L (36.0-46.0) % MCV 85.5 (80.0-98.0) fL MCH 27.5 (27.0-32.0) pg MCHC 32.2 (31.0-37.0) g/dL RDW Std Deviation 49.1 (28.0-62.0) fl RDW Coeff of Shaq 16 H (11.0-15.0) % Plt Count 161 (150-400) K/uL MPV 10.10 (7.40-12.00) fL Neut % (Auto) 25.0 L (48.0-80.0) % Lymph % (Auto) 58.3 H (16.0-40.0) % [place] % (Auto) 10.4 (0.0-15.0) % Eos % (Auto) 5.4 (0.0-7.0) % Baso % (Auto) 0.9 (0.0-1.5) % Neut # (Auto) 0.8 L (1.4-5.7) K/uL Lymph # (Auto) 2.0 (0.6-2.4) K/uL [place] # (Auto) 0.4 (0.0-0.8) K/uL Eos # (Auto) 0.2 (0.0-0.7) K/uL Baso # (Auto) 0.0 (0.0-0.1) K/uL Nucleated RBC % 0.0 /100WBC Nucleated RBCs # 0 K/uL Sodium 142 (136-145) mmol/L Potassium 3.2 L (3.5-5.1) mmol/L Chloride 107 (98-107) mmol/L Carbon Dioxide 26.9 (21.0-32.0) mmol/L BUN 2 L (7.0-18.0) mg/dL Creatinine 0.6 (0.6-1.0) mg/dL Est Cr Clr Drug Dosing 95.55 mL/min Estimated GFR (MDRD) > 60.0 ml/min Glucose 81 (74-106) mg/dL Calcium 8.2 L (8.5-10.1) mg/dL Phosphorus 3.3 (2.6-4.7) mg/dL Magnesium 1.9 (1.8-2.4) mg/dL Med Orders - Current: Current Medications Docusate Sodium (Colace) 100 mg PO BID [facility] Last Admin: 09/27/19 09:33 Dose: 100 mg Heparin Sodium (Porcine) (Heparin Sodium) 5,000 units SUBCUT Q8H [facility] Last Admin: 09/27/19 11:05 Dose: 5,000 units Sodium Chloride (Normal Saline) 1,000 mls @ 125 mls/hr IV ASDIRECTED [facility] Last Admin: 09/27/19 11:09 Dose: 125 mls/hr Lorazepam (Ativan) 1 mg IVPUSH Q6H PRN PRN Reason: agitation Last Admin: 09/27/19 09:26 Dose: 1 mg Ondansetron HCl (Zofran) 4 mg IVPUSH Q4H PRN PRN Reason: Nausea Last Admin: 09/27/19 13:49 Dose: 4 mg Sodium Chloride (Saline Flush) 10 ml FLUSH ASDIRECTED PRN PRN Reason: Keep Vein Open Last Admin: 09/24/19 17:18 Dose: 10 ml Sodium Chloride (Saline Flush) 2.5 ml FLUSH ASDIRECTED PRN PRN Reason: Keep Vein Open Last Admin: 09/24/19 17:19 Dose: 2.5 ml Discontinued Medications Sodium Chloride (Normal Saline) 1,000 mls @ 999 mls/hr IV .BOLUS ONE Stop: 09/24/19 17:55 Last Admin: 09/24/19 17:14 Dose: 999 mls/hr Sodium Chloride (Normal Saline) 1,000 mls @ 999 mls/hr IV .BOLUS ONE Stop: 09/24/19 20:04 Last Admin: 09/24/19 19:30 Dose: 999 mls/hr Potassium Chloride/Sodium Chloride (Normal Saline With 40 Meq Kcl) 1,000 mls @ 150 mls/hr IV ASDIRECTED [facility] Stop: 09/25/19 01:54 Last Admin: 09/24/19 21:01 Dose: 150 mls/hr Potassium Chloride 40 meq/ (Sodium Chloride) 270 mls @ 67.5 mls/hr IV ONETIME ONE Stop: 09/26/19 14:29 Last Admin: 09/26/19 10:53 Dose: 67.5 mls/hr Potassium Chloride 40 meq/ (Sodium Chloride) 270 mls @ 67.5 mls/hr IV ONETIME ONE Stop: 09/27/19 12:44 Last Admin: 09/27/19 09:34 Dose: 67.5 mls/hr Morphine Sulfate (Morphine) 2 mg IVPUSH Q2H PRN PRN Reason: Pain (severe 7-10) Stop: 09/25/19 19:11 Ondansetron HCl (Zofran Odt) 4 mg PO ONETIME ONE Stop: 09/24/19 16:56 Last Admin: 09/24/19 17:18 Dose: Not Given Ondansetron HCl (Zofran) 4 mg IVPUSH ONETIME ONE Stop: 09/24/19 17:19 Last Admin: 09/24/19 17:18 Dose: 4 mg Ondansetron HCl (Zofran) Confirm Administered Dose 4 mg .ROUTE .STK-MED ONE Stop: 09/24/19 17:18 Last Admin: 09/24/19 18:00 Dose: Not Given <Gabriele Faulkner - Last Filed: 10/04/19 20:06> Discharge Summary - Hospital Course Free Text/Narrative:: I have seen and evaluated the patient and agree with the residents note unless specified in my note - Referral to Home Health Primary Care Physician: Yaw Loza MD - Discharge Diagnosis/Problem(s) (1) Dehydration SNOMED Code(s): 67698634 ICD Code: E86.0 - DEHYDRATION Status: Acute (2) Partial small bowel obstruction SNOMED Code(s): 346422575 ICD Code: K56.600 - PARTIAL INTESTINAL OBSTRUCTION, UNSPECIFIED TO CAUSE Status: Acute Priority: High (3) Nausea vomiting and diarrhea SNOMED Code(s): 2880502 ICD Code: R11.2 - NAUSEA WITH VOMITING, UNSPECIFIED; R19.7 - DIARRHEA, UNSPECIFIED Status: Acute - Patient Summary/Data Consults: Consultations 09/24/19 19:09 Consult to Physician [CONS] Routine - Patient Data Vitals - Most Recent: Last Vital Signs Temp 36.9 C 09/27/19 11:00 Pulse 74 09/27/19 11:00 Resp 16 09/27/19 11:00 BP 118/72 09/27/19 11:00 Pulse Ox 93 L 09/27/19 11:00 Med Orders - Current: Current Medications Discontinued Medications Docusate Sodium (Colace) 100 mg PO BID [facility] Last Admin: 09/27/19 09:33 Dose: 100 mg Heparin Sodium (Porcine) (Heparin Sodium) 5,000 units SUBCUT Q8H [facility] Last Admin: 09/27/19 11:05 Dose: 5,000 units Sodium Chloride (Normal Saline) 1,000 mls @ 999 mls/hr IV .BOLUS ONE Stop: 09/24/19 17:55 Last Admin: 09/24/19 17:14 Dose: 999 mls/hr Sodium Chloride (Normal Saline) 1,000 mls @ 999 mls/hr IV .BOLUS ONE Stop: 09/24/19 20:04 Last Admin: 09/24/19 19:30 Dose: 999 mls/hr Potassium Chloride/Sodium Chloride (Normal Saline With 40 Meq Kcl) 1,000 mls @ 150 mls/hr IV ASDIRECTED [facility] Stop: 09/25/19 01:54 Last Admin: 09/24/19 21:01 Dose: 150 mls/hr Sodium Chloride (Normal Saline) 1,000 mls @ 125 mls/hr IV ASDIRECTED [facility] Last Admin: 09/27/19 11:09 Dose: 125 mls/hr Potassium Chloride 40 meq/ (Sodium Chloride) 270 mls @ 67.5 mls/hr IV ONETIME ONE Stop: 09/26/19 14:29 Last Admin: 09/26/19 10:53 Dose: 67.5 mls/hr Potassium Chloride 40 meq/ (Sodium Chloride) 270 mls @ 67.5 mls/hr IV ONETIME ONE Stop: 09/27/19 12:44 Last Admin: 09/27/19 09:34 Dose: 67.5 mls/hr Lorazepam (Ativan) 1 mg IVPUSH Q6H PRN PRN Reason: agitation Last Admin: 09/27/19 09:26 Dose: 1 mg Morphine Sulfate (Morphine) 2 mg IVPUSH Q2H PRN PRN Reason: Pain (severe 7-10) Stop: 09/25/19 19:11 Ondansetron HCl (Zofran Odt) 4 mg PO ONETIME ONE Stop: 09/24/19 16:56 Last Admin: 09/24/19 17:18 Dose: Not Given Ondansetron HCl (Zofran) 4 mg IVPUSH ONETIME ONE Stop: 09/24/19 17:19 Last Admin: 09/24/19 17:18 Dose: 4 mg Ondansetron HCl (Zofran) Confirm Administered Dose 4 mg .ROUTE .STK-MED ONE Stop: 09/24/19 17:18 Last Admin: 09/24/19 18:00 Dose: Not Given Ondansetron HCl (Zofran) 4 mg IVPUSH Q4H PRN PRN Reason: Nausea Last Admin: 09/27/19 13:49 Dose: 4 mg Sodium Chloride (Saline Flush) 10 ml FLUSH ASDIRECTED PRN PRN Reason: Keep Vein Open Last Admin: 09/24/19 17:18 Dose: 10 ml Sodium Chloride (Saline Flush) 2.5 ml FLUSH ASDIRECTED PRN PRN Reason: Keep Vein Open Last Admin: 09/24/19 17:19 Dose: 2.5 ml
== END 2019-09-27 14:45 | disposition home or self-care (01) ==
LOC: MW.ED 15:15 → MW.MS 19:09
PROVIDERS: ADMIT Internal Medicine; ATTEND Internal Medicine
DX: K56.600 Partial intestinal obstruction, unspecified as to cause (principal); E86.0 Dehydration; J44.9 Chronic obstructive pulmonary disease, unspecified; K43.5 Parastomal hernia without obstruction or gangrene; F41.9 Anxiety disorder, unspecified; F32.9 Major depressive disorder, single episode, unspecified; M19.90 Unspecified osteoarthritis, unspecified site; Z93.3 Colostomy status; Z79.51 Long term (current) use of inhaled steroids; Z99.81 Dependence on supplemental oxygen
CPT/HCPCS: 36415; 74176; 80048; 80053; 81001; 82962; 83735; 84100; 85025; 96361; 96372; 96374; 96375; 96376; 99285; A9270; G0378; J1644; J2060; J2405; J3480; J7030; J7050

== ENCOUNTER 2019-10-25 19:14 | Inpatient (IN) | payer BC, MEDICARE ==
[2019-10-25] MEDS ORDERED: Morphine 2 MG/ML Syringe IVPUSH ONE ×2 (19:33→22:39)
[2019-10-25] MEDS ORDERED: Sodium Chloride 0.9% 10 ML Syringe FLUSH PRN (19:33)
[2019-10-25] MEDS ORDERED: Ondansetron 4 MG/2 ML SDV IVPUSH ONE (19:33)
[2019-10-25] MEDS ORDERED: Sodium Chloride 0.9% 2.5 ML Syringe FLUSH PRN (19:33)
--- NOTE | 2019-10-25 19:34 | EDM.PDOC ---
ED HPI GENERAL MEDICAL PROBLEM - General Chief Complaint: General Stated Complaint: ABDOMINAL PAIN Time Seen by Provider: 10/25/19 19:28 - History of Present Illness INITIAL COMMENTS - FREE TEXT/NARRATIVE: HISTORY AND PHYSICAL: History of present illness: The patient is a 58-year-old female with a history of oxygen dependent COPD as well as a bowel perforation from a small bowel obstruction in June 2019 requiring surgery and a colostomy who has been admitted here at the end of August as well as beginning of September for small bowel obstructions and on her last admission it was noted that she had a parastomal hernia and it was recommended that she follow-up with her provider Dr. Cornelius in [place]. On her last admission and the one in August she was placed on bowel rest and opened up naturally and she has followed up with Dr. Thompson and in fact had a colostomy takedown on October 12. She says that her abdominal pain has been ongoing since before that surgery and has continued afterwards and she has spoken with the surgeon about it. She has Percocet 5/325 for pain management and she says that he feels that the pain is postoperative and recommended that she continue with that care plan. She presents this evening with feeling bloated and having increased amount of this pain which is diffuse and originating from where her stoma was taken down but she says it is not new or different in character or location but it is just increased in intensity and she is frustrated. She has been having bowel movements which are very thin which she describes as normal in color not black or bloody but they are stringy in character. She says this is been ongoing again since her surgery mid- September. She is had no nausea or vomiting no fevers or chills no flank pain and she is eating and drinking normally but less than usual because she has so much discomfort and bloatedness. Review of systems: As per history of present illness and below otherwise all systems reviewed and negative. Past medical history: As per history of present illness and as reviewed below otherwise noncontributory. Surgical history: As per history of present illness and as reviewed below otherwise noncontributory. Social history: No reported history of drug or alcohol abuse. Family history: As per history of present illness and as reviewed below otherwise noncontributory. Physical exam: Well-developed well-nourished thin female who is nontoxic but looks uncomfortable with movements in the ED. Vital signs are noted by me HEENT: Atraumatic, normocephalic, pupils reactive, negative for conjunctival pallor or scleral icterus, mucous membranes moist, throat clear, neck supple, nontender, trachea midline. Lungs: Clear to auscultation, breath sounds equal bilaterally, chest nontender. Heart: S1S2, regular, negative for clicks, rubs, or JVD. Abdomen: Soft, there is a well-healed midline scar seen and in the left lower quadrant there is a newer incision which is healing nicely and is clean and dry without any erythema or drainage. The abdomen is distended with very absent bowel sounds and diffuse tympany throughout. There is diffuse abdominal tenderness which is more localized near the old stoma site but it is diffuse and there is no rebound or guarding.. Negative for masses or hepatosplenomegaly. Negative for costovertebral tenderness. Pelvis: Stable nontender. Genitourinary: Deferred. Rectal: Deferred. Extremities: Atraumatic, negative for cords or calf pain. Neurovascular unremarkable. Neuro: Awake, alert, oriented. Cranial nerves II through XII unremarkable. Cerebellum unremarkable. Motor and sensory unremarkable throughout. Exam nonfocal. Diagnostics: CBC CMP UA with reflex lactic acid CT scan of the abdomen and pelvis Therapeutics: IV fluids Zofran morphine nasoGastric tube 2234: case d/w Dr Nance and he will be on consult and agrees with admission here to the hospitalist. He would like an NG tube to be placed. Patient was made aware of this conversation and I will discuss with Dr. Fuller observation admission. DR Nance is also aware of the fact that the gallbladder does look distended but she has a normal white count no pain in the right upper quadrant and no LFT changes. He will review the CT and do formal consult. 2239: Was discussed with Dr. Fuller who is in agreement with observation admission. Testing results were also discussed with the patient. Impression: Small bowel obstruction Definitive disposition and diagnosis as appropriate pending reevaluation and review of above. Abdominal Pain Score (Numeric/FACES): 7 - Related Data Allergies Allergy/AdvReac Type Severity Reaction Status Date / Time No Known Allergies Allergy Verified 10/25/19 19:27 Home Meds: Home Meds ALPRAZolam [Xanax] 2 mg PO TID PRN 05/29/18 [History] Albuterol/Ipratropium [Combivent Respimat] 1 puff IH QID PRN 05/29/18 [History] Budesonide [Pulmicort] 1 dose INH BEDTIME 11/04/18 [History] Fluticasone Propionate [Flonase] 2 puff NASBOTH DAILY 11/04/18 [History] busPIRone [Buspar] 15 mg PO BID 11/04/18 [History] Ondansetron [Zofran ODT] 4 mg PO Q6H PRN 08/04/19 [History] Rosuvastatin [Crestor] 5 mg PO BEDTIME 08/04/19 [History] Budesonide/Formoterol Fumarate [Symbicort 160-4.5 Mcg Inhaler] 6 gm IH BID 30 Days #1 hfa.aer.ad 08/06/19 [Rx] Iron Polysaccharides Complex [Ferrex 150] 150 mg PO DAILY #30 cap 08/06/19 [Rx] Docusate Sodium [Colace] 100 mg PO BID 09/18/19 [History] Ondansetron [Zofran Odt] 8 mg PO Q6H PRN 3 Days #12 tab.rapdis 09/27/19 [Rx] Past Medical History HEENT History: Reports: None Cardiovascular History: Reports: Heart Murmur 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 Respiratory History: Reports: COPD, Other (See Below) Other Respiratory History: emphsyema Gastrointestinal History: Reports: Bowel Obstruction Other Gastrointestinal History: Bowel obstruction 2010, 2018, perforated colon in 2019 Genitourinary History: Reports: None 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: Musculoskeletal History: Reports: Arthritis Neurological History: Reports: None Psychiatric History: Reports: Anxiety, Depression, Panic Attack Endocrine/Metabolic History: Reports: None Hematologic History: Reports: Blood Transfusion(s) Immunologic History: Reports: None Oncologic (Cancer) History: Reports: None Dermatologic History: Reports: None - Infectious Disease History Infectious Disease History: Reports: Chicken Pox, Measles, Mumps - Past Surgical History Head Surgeries/Procedures: Reports: None HEENT Surgical History: Reports: Tonsillectomy Cardiovascular Surgical History: Reports: Cardiac Ablation Other Cardiovascular Surgeries/Procedures: Cardiac ablation in 1991 Respiratory Surgical History: Reports: None GI Surgical History: Reports: Appendectomy, Colostomy, Other (See Below) Female Surgical History: Reports: Section, Tubal Ligation Endocrine Surgical History: Reports: None Neurological Surgical History: Reports: None Musculoskeletal Surgical History: Reports: None Oncologic Surgical History: Reports: None Dermatological Surgical History: Reports: None Social & Family History - Family History Family Medical History: Noncontributory - Caffeine Use Caffeine Use: Reports: Coffee Other Caffeine Use: 3cups/day Caffeine Use Comment: 1/2 cup each day ED ROS GENERAL - Review of Systems Review Of Systems: Comprehensive ROS is negative, except as noted in HPI. ED EXAM, GENERAL - Physical Exam Exam: See Below (see Dictation) Course - Vital Signs Last Recorded V/S: Last Vital Signs Temp 36.9 C 10/25/19 22:29 Pulse 88 10/25/19 22:29 Resp 18 10/25/19 22:29 BP 135/79 10/25/19 22:29 Pulse Ox 94 L 10/25/19 22:29 - Orders/Labs/Meds Orders: Active Orders 24 hr Category Date Time Status Patient Status [ADT] Stat ADT 10/25/19 22:43 Ordered Notify Provider Consults [RC] ASDIRECTED Care 10/25/19 22:39 Active Oxygen Therapy, ED [RC] ASDIRECTED Care 10/25/19 19:32 Active Consult to Physician [CONS] Stat Cons 10/25/19 22:38 Active Sodium Chloride 0.9% [Normal Saline] 1,000 ml Med 10/25/19 19:45 Active IV ASDIRECTED Sodium Chloride 0.9% [Saline Flush] Med 10/25/19 19:33 Active 10 ml FLUSH ASDIRECTED PRN Sodium Chloride 0.9% [Saline Flush] Med 10/25/19 19:33 Active 2.5 ml FLUSH ASDIRECTED PRN Nasogastric Orogastric Tube Insertion [OM.PC] Stat Oth 10/25/19 22:38 Ordered Saline Lock Insert [OM.PC] Stat Oth 10/25/19 19:32 Ordered Medication Orders Sodium Chloride (Normal Saline) 1,000 mls @ 125 mls/hr IV ASDIRECTED CLARA Last Infusion: 10/25/19 20:30 Dose: 125 mls/hr Admin: 10/25/19 19:54 Dose: 125 mls/hr Sodium Chloride (Saline Flush) 10 ml FLUSH ASDIRECTED PRN PRN Reason: Keep Vein Open Sodium Chloride (Saline Flush) 2.5 ml FLUSH ASDIRECTED PRN PRN Reason: Keep Vein Open Labs: Laboratory Tests 10/25/19 10/25/19 10/25/19 Range/Units 19:40 20:14 20:14 WBC 7.23 (4.0-11.0) K/uL RBC 3.92 L (4.30-5.90) M/uL Hgb 11.1 L (12.0-16.0) g/dL Hct 34.1 L (36.0-46.0) % MCV 87.0 (80.0-98.0) fL MCH 28.3 (27.0-32.0) pg MCHC 32.6 (31.0-37.0) g/dL RDW Std Deviation 54.0 (28.0-62.0) fl RDW Coeff of Hsaq 17 H (11.0-15.0) % Plt Count 359 (150-400) K/uL MPV 9.20 (7.40-12.00) fL Add Manual Diff YES Neutrophils % (Manual) 72 (48.0-80.0) % Band Neutrophils % 9 % Lymphocytes % (Manual) 15 L (16.0-40.0) % Eosinophils % (Manual) 2 (0.0-7.0) % Basophils % (Manual) 1 (0.0-1.5) % Metamyelocytes % 1 % Nucleated RBC % 0.0 /100WBC Absolute Seg Neuts 5.2 (1.4-5.7) Band Neutrophils # 0.7 Lymphocytes # (Manual) 1.1 (0.6-2.4) Eosinophils # (Manual) 0.1 (0.0-0.7) Basophils # (Manual) 0.1 (0.0-0.1) Absolute Metamyelocyte 0.1 Nucleated RBCs # 0 K/uL Lactate 1.0 (0.20-2.00) mmol/L Sodium (136-145) mmol/L Potassium (3.5-5.1) mmol/L Chloride (98-107) mmol/L Carbon Dioxide (21.0-32.0) mmol/L BUN (7.0-18.0) mg/dL Creatinine (0.6-1.0) mg/dL Est Cr Clr Drug Dosing mL/min Estimated GFR (MDRD) ml/min Glucose (74-106) mg/dL Calcium (8.5-10.1) mg/dL Total Bilirubin (0.2-1.0) mg/dL AST (15-37) IU/L ALT (14-63) IU/L Alkaline Phosphatase (46-116) U/L Total Protein (6.4-8.2) g/dL Albumin (3.4-5.0) g/dL Globulin (2.6-4.0) g/dL Albumin/Globulin Ratio (0.9-1.6) Urine Color YELLOW Urine Appearance CLEAR Urine pH 6.5 (5.0-8.0) Ur Specific [place] 1.020 (1.001-1.035) Urine Protein NEGATIVE (NEGATIVE) mg/dL Urine Glucose (UA) NEGATIVE (NEGATIVE) mg/dL Urine Ketones NEGATIVE (NEGATIVE) mg/dL Urine Occult Blood NEGATIVE (NEGATIVE) Urine Nitrite NEGATIVE (NEGATIVE) Urine Bilirubin NEGATIVE (NEGATIVE) Urine Urobilinogen 1.0 (<2.0) EU/dL Ur Leukocyte Esterase NEGATIVE (NEGATIVE) 10/25/19 Range/Units 20:14 WBC (4.0-11.0) K/uL RBC (4.30-5.90) M/uL Hgb (12.0-16.0) g/dL Hct (36.0-46.0) % MCV (80.0-98.0) fL MCH (27.0-32.0) pg MCHC (31.0-37.0) g/dL RDW Std Deviation (28.0-62.0) fl RDW Coeff of Shaq (11.0-15.0) % Plt Count (150-400) K/uL MPV (7.40-12.00) fL Add Manual Diff Neutrophils % (Manual) (48.0-80.0) % Band Neutrophils % % Lymphocytes % (Manual) (16.0-40.0) % Eosinophils % (Manual) (0.0-7.0) % Basophils % (Manual) (0.0-1.5) % Metamyelocytes % % Nucleated RBC % /100WBC Absolute Seg Neuts (1.4-5.7) Band Neutrophils # Lymphocytes # (Manual) (0.6-2.4) Eosinophils # (Manual) (0.0-0.7) Basophils # (Manual) (0.0-0.1) Absolute Metamyelocyte Nucleated RBCs # K/uL Lactate (0.20-2.00) mmol/L Sodium 142 (136-145) mmol/L Potassium 3.8 (3.5-5.1) mmol/L Chloride 106 (98-107) mmol/L Carbon Dioxide 28.8 (21.0-32.0) mmol/L BUN 10 (7.0-18.0) mg/dL Creatinine 0.5 L (0.6-1.0) mg/dL Est Cr Clr Drug Dosing 119.95 mL/min Estimated GFR (MDRD) > 60.0 ml/min Glucose 92 (74-106) mg/dL Calcium 8.3 L (8.5-10.1) mg/dL Total Bilirubin 0.6 (0.2-1.0) mg/dL AST 18 (15-37) IU/L ALT 15 (14-63) IU/L Alkaline Phosphatase 103 (46-116) U/L Total Protein 6.8 (6.4-8.2) g/dL Albumin 3.0 L (3.4-5.0) g/dL Globulin 3.8 (2.6-4.0) g/dL Albumin/Globulin Ratio 0.8 L (0.9-1.6) Urine Color Urine Appearance Urine pH (5.0-8.0) Ur Specific [place] (1.001-1.035) Urine Protein (NEGATIVE) mg/dL Urine Glucose (UA) (NEGATIVE) mg/dL Urine Ketones (NEGATIVE) mg/dL Urine Occult Blood (NEGATIVE) Urine Nitrite (NEGATIVE) Urine Bilirubin (NEGATIVE) Urine Urobilinogen (<2.0) EU/dL Ur Leukocyte Esterase (NEGATIVE) Meds: Medications Generic Name Dose Route Start Last Admin Trade Name Freq PRN Reason Stop Dose Admin Sodium Chloride 1,000 mls @ 125 mls/hr 10/25/19 19:45 10/25/19 20:30 Normal Saline IV 125 mls/hr ASDIRECTED CLARA Infusion Sodium Chloride 10 ml 10/25/19 19:33 Saline Flush FLUSH ASDIRECTED PRN Keep Vein Open Sodium Chloride 2.5 ml 10/25/19 19:33 Saline Flush FLUSH ASDIRECTED PRN Keep Vein Open Discontinued Medications Generic Name Dose Route Start Last Admin Trade Name Savanna PRN Reason Stop Dose Admin Iopamidol 100 ml 10/25/19 21:18 Isovue-370 (76%) IVPUSH 10/25/19 21:19 ONETIME STA Morphine Sulfate 4 mg 10/25/19 19:33 10/25/19 19:57 Morphine IVPUSH 10/25/19 19:34 4 mg ONETIME ONE Administration Morphine Sulfate 2 mg 10/25/19 22:39 Morphine IVPUSH 10/25/19 22:40 ONETIME ONE Ondansetron HCl 4 mg 10/25/19 19:33 10/25/19 19:54 Zofran IVPUSH 10/25/19 19:34 4 mg ONETIME ONE Administration Departure - Departure Time of Disposition: 22:45 Disposition: Refer to Observation Condition: Fair Clinical Impression: Obstruction of intestine Qualifiers: Intestinal obstruction type: unspecified Intestinal obstruction extent: partial Qualified Code(s): K56.600 - Partial intestinal obstruction, unspecified as to cause - Discharge Information Referrals: Yaw Loza MD [Primary Care Provider] - Forms: ED Department Discharge Sepsis Event Note - Evaluation Sepsis Screening Result: No Definite Risk - Focused Exam Vital Signs: Vital Signs Temp Pulse Resp BP Pulse Ox 10/25/19 22:29 36.9 C 88 18 135/79 94 L 10/25/19 20:41 85 18 134/79 94 L 10/25/19 19:29 36.8 C 102 H 16 134/98 H 95 Date Exam was Performed: 10/25/19 Time Exam was Performed: 22:44 - My Orders Last 24 Hours: My Active Orders 10/25/19 19:32 Oxygen Therapy, ED [RC] ASDIRECTED Saline Lock Insert [OM.PC] Stat 10/25/19 19:33 Sodium Chloride 0.9% [Saline Flush] 10 ml FLUSH ASDIRECTED PRN Sodium Chloride 0.9% [Saline Flush] 2.5 ml FLUSH ASDIRECTED PRN 10/25/19 19:45 Sodium Chloride 0.9% [Normal Saline] 1,000 ml IV ASDIRECTED 10/25/19 22:38 Consult to Physician [CONS] Stat Nasogastric Orogastric Tube Insertion [OM.PC] Stat 10/25/19 22:39 Notify Provider Consults [RC] ASDIRECTED 10/25/19 22:43 Patient Status [ADT] Stat - Assessment/Plan Last 24 Hours: My Active Orders 10/25/19 19:32 Oxygen Therapy, ED [RC] ASDIRECTED Saline Lock Insert [OM.PC] Stat 10/25/19 19:33 Sodium Chloride 0.9% [Saline Flush] 10 ml FLUSH ASDIRECTED PRN Sodium Chloride 0.9% [Saline Flush] 2.5 ml FLUSH ASDIRECTED PRN 10/25/19 19:45 Sodium Chloride 0.9% [Normal Saline] 1,000 ml IV ASDIRECTED 10/25/19 22:38 Consult to Physician [CONS] Stat Nasogastric Orogastric Tube Insertion [OM.PC] Stat 10/25/19 22:39 Notify Provider Consults [RC] ASDIRECTED 10/25/19 22:43 Patient Status [ADT] Stat
[2019-10-25] MEDS ORDERED: Sodium Chloride 0.9% 1,000 ML IV SCH (19:45)
[2019-10-25 20:49] LABS: BLOOD UREA NITROGEN,BUN 10 mg/dL (7.0-18.0); CARBON DIOXIDE,CO2 28.8 mmol/L (21.0-32.0); CHLORIDE,CL 106 mmol/L (98-107); GLUCOSE RANDOM 92 mg/dL (74-106); POTASSIUM,K 3.8 mmol/L (3.5-5.1); SODIUM,NA 142 mmol/L (136-145)
[2019-10-25] MEDS ORDERED: Iopamidol 755 Mg/ML 100 ML Bottle IVPUSH STA (21:18)
--- NOTE | 2019-10-25 22:03 | CT ---
TECHNIQUE: IV contrast-enhanced CT abdomen and pelvis. 100 mL Isovue-370 injected. INDICATION: Abdominal pain. COMPARISON: 09/24/[address] FINDINGS: bilateral breast implants. Liver, spleen, pancreas, kidneys, adrenal glands appear normal. Benign cysts in the left kidney. The left lower quadrant ileostomy has been taken down since the prior exam. The gallbladder is distended. There is some fluid and edema in the right side of the abdomen including adjacent to the gallbladder and the right side of the colon. There is mild intra and extrahepatic biliary dilation. Mildly dilated fluid-filled and fecalized loops of small bowel in the left upper quadrant. Probable transition point the left side of the abdomen on image 86. Free fluid in the pelvis. IMPRESSION: 1. Probable mild jejunal small bowel obstruction. 2. There are some inflammatory changes in the right side of the abdomen adjacent to a distended gallbladder and the right side of the colon. There is also mild biliary dilation. Cholecystitis and choledocholithiasis should also be considered. Please note that all CT scans at this facility use dose modulation, iterative reconstruction, and/or weight-based dosing when appropriate to reduce radiation dose to as low as reasonably achievable. Dictated by Wilbert Petersen MD @ Oct 25 2019 9:55PM (Electronically Signed)
[2019-10-26] MEDS ORDERED: Sodium Chloride 0.9% 1,000 ML IV SCH (00:30)
--- NOTE | 2019-10-26 02:02 | CR ---
INDICATION: Nasogastric tube placement TECHNIQUE: Chest radiograph 1 view COMPARISON: None FINDINGS: Mediastinum: The mediastinum is normal in appearance. The heart silhouette is normal in size and morphology. NG tube present with the tip in the distal esophagus. Lung: Both lungs are unremarkable in appearance. No sign of pleural effusion seen. No pneumothorax is identified. Bone and Soft tissue: Unremarkable for age. IMPRESSION: 1. NG tube present with the tip in the distal esophagus. Dictated by Ray Gonzalez MD @ 10/26/2019 2:00:22 AM Dictated by: Ray Gonzalez MD @ 10/26/2019 02:00:25 (Electronically Signed)
[2019-10-26] MEDS: Morphine 2 MG/ML Syringe IVPUSH PRN ×10 (02:56→23:02)
[2019-10-26] MEDS: Ciprofloxacin in D5W 400 MG in Premix Bag 1 BAG IV SCH ×4 (03:09→13:45)
--- NOTE | 2019-10-26 03:17 | CR ---
INDICATION: NG tube repositioning TECHNIQUE: Chest 1 views COMPARISON: Chest x-ray 10/26/2019 at 01:49 FINDINGS: Cardiovascular and mediastinum: Normal heart size. Nasogastric tube with tip at the proximal stomach. Lungs and pleural spaces: Lungs are clear. No sign of infiltrate or mass. No sign of pleural effusion. No pneumothorax. Bones and soft tissues: No significant findings. IMPRESSION: Interval advancement of the nasogastric tube with the tip at the proximal stomach and the port near the level of the gastroesophageal junction. Dictated by Titus Tran MD @ Oct 26 2019 3:15AM Signed by Dr. Titus Tran @ Oct 26 2019 3:17AM
[2019-10-26] MEDS: metroNIDAZOLE/Normal Saline 500 MG in Premix Bag 1 BAG IV SCH ×4 (04:35→22:02)
[2019-10-26 07:12] LABS: BLOOD UREA NITROGEN,BUN 6 mg/dL (7.0-18.0); CARBON DIOXIDE,CO2 27.1 mmol/L (21.0-32.0); CHLORIDE,CL 104 mmol/L (98-107); GLUCOSE RANDOM 71 mg/dL (74-106); LIPASE 163 U/L (73-393); POTASSIUM,K 3.3 mmol/L (3.5-5.1); SODIUM,NA 140 mmol/L (136-145)
[2019-10-26] MEDS ORDERED: 50% Dextrose in Water 50 ML Syringe IVPUSH ONE (08:01)
[2019-10-26] MEDS: LORazepam 2 MG/ML SDV IVPUSH PRN ×4 (08:13→21:53)
[2019-10-26] MEDS: D5 1/2 NS w/ 20 mEq/L KCl 1,000 ML IV SCH ×2 (09:18→20:17)
--- NOTE | 2019-10-26 09:28 | US ---
Limited abdominal ultrasound: Multiple real-time images of the upper right abdomen were obtained. Comparison: Prior CT abdomen and pelvis study of 10/25/19 Liver contains no focal abnormality. Right kidney shows no hydronephrosis or mass. Right kidney length is 12.3 cm. Gallbladder is mildly distended. Small intraluminal abnormality is seen which appears fixed and most likely represents a polyp. This finding measures 5 mm. Common bile duct is dilated at 1.1 cm. No definite choledocholithiasis is appreciated. Pancreas not visualized due to bowel gas. Impression: 1. Gallbladder mildly distended with no shadowing gallstones. Small polyp believed to be present. 2. Common bile duct is dilated 1.1 cm but no findings of choledocholithiasis is seen. 3. Nonvisualized pancreas. Diagnostic code #3 This report was dictated in [place] Standard Time
--- NOTE | 2019-10-26 10:40 | PCM.SN ---
- Free Text/Narrative Note: pt seen, chart reviewed; like postop ileus, abd nontender, though pt co abd pain ; would be raymon w narcotic pain meds, as pt likely developed postop ileus, and would keep K above 4.0 to avoid risk of chemical ileus; would follow pt w you; ok to have a cup of ice chip per day; no plan for surgery at this stage; [id number]
--- NOTE | 2019-10-26 13:07 | PCM.HP.2 ---
H&P History of Present Illness - General Date of Service: 10/26/19 Admit Problem/Dx: Admission Diagnosis/Problem Admission Diagnosis/Problem Intestinal obstruction Source of Information: Patient History Limitations: Reports: No Limitations - History of Present Illness Initial Comments - Free Text/Narative: This 58 year old female with pmh of COPD, oxygen dependent at times of exertion and a complex abdominal history that includes recent take down of colostomy, which was placed June 2019 after perforated SBO. Tonight she arrives to the ED with complaints of abdominal pain, bloating, scant stools/gas as well as N/ V. She reports she was just discharged from the hospital after having surgical takedown of colostomy and repair of abdominal hernias. She reports she has not felt well since. She reports very small amount of gas and has had very small stools. She is unable to eat or drink due to nausea. She denies fevers or chills. No chest pain or SOB. In the ED no leukocytosis noted, K+ 3.8, glucose 92. CT of abdomen/pelvis revealed probably mild jejunal SBO, with some inflammatory changes in the R side of abdomen next to a distended gallbladder and right side of colon. Mild biliary dilation. Surgery, Dr Nance consulted, request NG tube and Hospitalist admission and he would see patient this morning. She was treated with IVFs, Flagyl and Cipro. Abdominal Pain Score (Numeric/FACES): 5 - Related Data Allergies/Adverse Reactions: Allergies Allergy/AdvReac Type Severity Reaction Status Date / Time No Known Allergies Allergy Verified 10/25/19 19:27 Home Medications: Home Meds ALPRAZolam [Xanax] 2 mg PO TID PRN 05/29/18 [History] Albuterol/Ipratropium [Combivent Respimat] 1 puff IH QID PRN 05/29/18 [History] Budesonide [Pulmicort] 1 dose INH BEDTIME 11/04/18 [History] Fluticasone Propionate [Flonase] 2 puff NASBOTH DAILY 11/04/18 [History] busPIRone [Buspar] 15 mg PO BID 11/04/18 [History] Ondansetron [Zofran ODT] 4 mg PO Q6H PRN 08/04/19 [History] Rosuvastatin [Crestor] 5 mg PO BEDTIME 08/04/19 [History] Budesonide/Formoterol Fumarate [Symbicort 160-4.5 Mcg Inhaler] 6 gm IH BID 30 Days #1 hfa.aer.ad 08/06/19 [Rx] Iron Polysaccharides Complex [Ferrex 150] 150 mg PO DAILY #30 cap 08/06/19 [Rx] Docusate Sodium [Colace] 100 mg PO BID 09/18/19 [History] Ondansetron [Zofran Odt] 8 mg PO Q6H PRN 3 Days #12 tab.rapdis 09/27/19 [Rx] Past Medical History HEENT History: Reports: None Cardiovascular History: Reports: Heart Murmur 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 Respiratory History: Reports: COPD, Other (See Below) Other Respiratory History: emphsyema Gastrointestinal History: Reports: Bowel Obstruction Other Gastrointestinal History: Bowel obstruction 2010, 2018, perforated colon in 2018 Genitourinary History: Reports: None 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: Musculoskeletal History: Reports: Arthritis Neurological History: Reports: None Psychiatric History: Reports: Anxiety, Depression, Panic Attack Endocrine/Metabolic History: Reports: None Hematologic History: Reports: Blood Transfusion(s) Immunologic History: Reports: None Oncologic (Cancer) History: Reports: None Dermatologic History: Reports: None - Infectious Disease History Infectious Disease History: Reports: Chicken Pox, Measles, Mumps - Past Surgical History Head Surgeries/Procedures: Reports: None HEENT Surgical History: Reports: Tonsillectomy Cardiovascular Surgical History: Reports: Cardiac Ablation Other Cardiovascular Surgeries/Procedures: Cardiac ablation in 1991 Respiratory Surgical History: Reports: None GI Surgical History: Reports: Appendectomy, Colostomy, Other (See Below) Female Surgical History: Reports: Section, Tubal Ligation Endocrine Surgical History: Reports: None Neurological Surgical History: Reports: None Musculoskeletal Surgical History: Reports: None Oncologic Surgical History: Reports: None Dermatological Surgical History: Reports: None Social & Family History - Family History Family Medical History: Noncontributory - Tobacco Use Smoking Status *Q: Former Smoker Years of Tobacco use: 30 Used Tobacco, but Quit: Yes Month/Year Tobacco Last Used: 5 - Caffeine Use Caffeine Use: Reports: Coffee Other Caffeine Use: 3cups/day Caffeine Use Comment: 1/2 cup each day - Recreational Drug Use Recreational Drug Use: No H&P Review of Systems - Review of Systems: Review Of Systems: See Below General: Reports: Weakness, Fatigue. Denies: Fever, Chills HEENT: Reports: No Symptoms. Denies: Headaches, Sinus Congestion, Sore Throat Pulmonary: Denies: Shortness of Breath, Cough, Sputum Cardiovascular: Reports: No Symptoms. Denies: Chest Pain, Edema Gastrointestinal: Reports: Abdominal Pain (diffuse, R side more), Constipation ( very scant stool yesterday), Decreased Appetite, Flatus (has increased since yesterday,), Nausea. Denies: Diarrhea Genitourinary: Reports: No Symptoms. Denies: Dysuria, Frequency, Burning Psychiatric: Reports: No Symptoms Neurological: Reports: No Symptoms Hematologic/Lymphatic: Reports: No Symptoms Immunologic: Reports: No Symptoms Exam - Exam Exam: See Below - Vital Signs Vital Signs: Last Vital Signs Temp 98.8 F 10/26/19 12:40 Pulse 86 10/26/19 12:40 Resp 16 10/26/19 12:40 BP 152/81 H 10/26/19 12:40 Pulse Ox 92 L 10/26/19 12:40 Weight: 57.924 kg - Exam General: Alert, Oriented, Cooperative Neck: Supple, Trachea Midline Lungs: Clear to Auscultation, Normal Respiratory Effort Cardiovascular: Regular Rate, Regular Rhythm GI/Abdominal Exam: Normal Bowel Sounds, Soft, Distended, Tender (diffuse, but mostly to R sided of abdomen) Extremities: Normal Inspection, Normal Range of Motion, Non-Tender, No Pedal Edema Skin: Incision (healing abdominal incision and ostomy take down site. scabbing and nearly complete healing.) Neuro Extensive - Mental Status: Alert, Oriented x3 Neuro Extensive - Motor, Sensory, Reflexes: CN II-XII Intact Psychiatric: Alert, Normal Affect, Hallucinations - Patient Data Lab Results Last 24 hrs: Laboratory Results - last 24 hr 10/25/19 10/25/19 10/25/19 Range/Units 19:40 20:14 20:14 WBC 7.23 (4.0-11.0) K/uL RBC 3.92 L (4.30-5.90) M/uL Hgb 11.1 L (12.0-16.0) g/dL Hct 34.1 L (36.0-46.0) % MCV 87.0 (80.0-98.0) fL MCH 28.3 (27.0-32.0) pg MCHC 32.6 (31.0-37.0) g/dL RDW Std Deviation 54.0 (28.0-62.0) fl RDW Coeff of Shaq 17 H (11.0-15.0) % Plt Count 359 (150-400) K/uL MPV 9.20 (7.40-12.00) fL Add Manual Diff YES Neutrophils % (Manual) 72 (48.0-80.0) % Band Neutrophils % 9 % Lymphocytes % (Manual) 15 L (16.0-40.0) % Monocytes % (Manual) (0.0-15.0) % Eosinophils % (Manual) 2 (0.0-7.0) % Basophils % (Manual) 1 (0.0-1.5) % Metamyelocytes % 1 % Nucleated RBC % 0.0 /100WBC Absolute Seg Neuts 5.2 (1.4-5.7) Band Neutrophils # 0.7 Lymphocytes # (Manual) 1.1 (0.6-2.4) Monocytes # (Manual) (0.0-0.8) Eosinophils # (Manual) 0.1 (0.0-0.7) Basophils # (Manual) 0.1 (0.0-0.1) Absolute Metamyelocyte 0.1 Nucleated RBCs # 0 K/uL Lactate 1.0 (0.20-2.00) mmol/L Sodium (136-145) mmol/L Potassium (3.5-5.1) mmol/L Chloride (98-107) mmol/L Carbon Dioxide (21.0-32.0) mmol/L BUN (7.0-18.0) mg/dL Creatinine (0.6-1.0) mg/dL Est Cr Clr Drug Dosing mL/min Estimated GFR (MDRD) ml/min Glucose (74-106) mg/dL POC Glucose (60-110) mg/dL Calcium (8.5-10.1) mg/dL Magnesium (1.8-2.4) mg/dL Total Bilirubin (0.2-1.0) mg/dL AST (15-37) IU/L ALT (14-63) IU/L Alkaline Phosphatase (46-116) U/L Total Protein (6.4-8.2) g/dL Albumin (3.4-5.0) g/dL Globulin (2.6-4.0) g/dL Albumin/Globulin Ratio (0.9-1.6) Lipase (73-393) U/L Urine Color YELLOW Urine Appearance CLEAR Urine pH 6.5 (5.0-8.0) Ur Specific Humble 1.020 (1.001-1.035) Urine Protein NEGATIVE (NEGATIVE) mg/dL Urine Glucose (UA) NEGATIVE (NEGATIVE) mg/dL Urine Ketones NEGATIVE (NEGATIVE) mg/dL Urine Occult Blood NEGATIVE (NEGATIVE) Urine Nitrite NEGATIVE (NEGATIVE) Urine Bilirubin NEGATIVE (NEGATIVE) Urine Urobilinogen 1.0 (<2.0) EU/dL Ur Leukocyte Esterase NEGATIVE (NEGATIVE) 10/25/19 10/26/19 10/26/19 Range/Units 20:14 06:24 06:24 WBC 7.07 (4.0-11.0) K/uL RBC 3.99 L (4.30-5.90) M/uL Hgb 11.3 L (12.0-16.0) g/dL Hct 34.2 L (36.0-46.0) % MCV 85.7 (80.0-98.0) fL MCH 28.3 (27.0-32.0) pg MCHC 33.0 (31.0-37.0) g/dL RDW Std Deviation 52.3 (28.0-62.0) fl RDW Coeff of Shaq 17 H (11.0-15.0) % Plt Count 378 (150-400) K/uL MPV 9.20 (7.40-12.00) fL Add Manual Diff YES Neutrophils % (Manual) 60 (48.0-80.0) % Band Neutrophils % 4 % Lymphocytes % (Manual) 25 (16.0-40.0) % Monocytes % (Manual) 9 (0.0-15.0) % Eosinophils % (Manual) 2 (0.0-7.0) % Basophils % (Manual) (0.0-1.5) % Metamyelocytes % % Nucleated RBC % 0.0 /100WBC Absolute Seg Neuts 4.2 (1.4-5.7) Band Neutrophils # 0.3 Lymphocytes # (Manual) 1.8 (0.6-2.4) Monocytes # (Manual) 0.6 (0.0-0.8) Eosinophils # (Manual) 0.1 (0.0-0.7) Basophils # (Manual) (0.0-0.1) Absolute Metamyelocyte Nucleated RBCs # 0 K/uL Lactate (0.20-2.00) mmol/L Sodium 142 140 (136-145) mmol/L Potassium 3.8 3.3 L (3.5-5.1) mmol/L Chloride 106 104 (98-107) mmol/L Carbon Dioxide 28.8 27.1 (21.0-32.0) mmol/L BUN 10 6 L (7.0-18.0) mg/dL Creatinine 0.5 L 0.5 L (0.6-1.0) mg/dL Est Cr Clr Drug Dosing 119.95 109.41 mL/min Estimated GFR (MDRD) > 60.0 > 60.0 ml/min Glucose 92 71 L (74-106) mg/dL POC Glucose (60-110) mg/dL Calcium 8.3 L 8.2 L (8.5-10.1) mg/dL Magnesium (1.8-2.4) mg/dL Total Bilirubin 0.6 0.7 (0.2-1.0) mg/dL AST 18 18 (15-37) IU/L ALT 15 16 (14-63) IU/L Alkaline Phosphatase 103 98 (46-116) U/L Total Protein 6.8 6.8 (6.4-8.2) g/dL Albumin 3.0 L 3.0 L (3.4-5.0) g/dL Globulin 3.8 3.8 (2.6-4.0) g/dL Albumin/Globulin Ratio 0.8 L 0.8 L (0.9-1.6) Lipase 163 (73-393) U/L Urine Color Urine Appearance Urine pH (5.0-8.0) Ur Specific Humble (1.001-1.035) Urine Protein (NEGATIVE) mg/dL Urine Glucose (UA) (NEGATIVE) mg/dL Urine Ketones (NEGATIVE) mg/dL Urine Occult Blood (NEGATIVE) Urine Nitrite (NEGATIVE) Urine Bilirubin (NEGATIVE) Urine Urobilinogen (<2.0) EU/dL Ur Leukocyte Esterase (NEGATIVE) 10/26/19 10/26/19 10/26/19 Range/Units 06:24 07:58 10:02 WBC (4.0-11.0) K/uL RBC (4.30-5.90) M/uL Hgb (12.0-16.0) g/dL Hct (36.0-46.0) % MCV (80.0-98.0) fL MCH (27.0-32.0) pg MCHC (31.0-37.0) g/dL RDW Std Deviation (28.0-62.0) fl RDW Coeff of Shaq (11.0-15.0) % Plt Count (150-400) K/uL MPV (7.40-12.00) fL Add Manual Diff Neutrophils % (Manual) (48.0-80.0) % Band Neutrophils % % Lymphocytes % (Manual) (16.0-40.0) % Monocytes % (Manual) (0.0-15.0) % Eosinophils % (Manual) (0.0-7.0) % Basophils % (Manual) (0.0-1.5) % Metamyelocytes % % Nucleated RBC % /100WBC Absolute Seg Neuts (1.4-5.7) Band Neutrophils # Lymphocytes # (Manual) (0.6-2.4) Monocytes # (Manual) (0.0-0.8) Eosinophils # (Manual) (0.0-0.7) Basophils # (Manual) (0.0-0.1) Absolute Metamyelocyte Nucleated RBCs # K/uL Lactate (0.20-2.00) mmol/L Sodium (136-145) mmol/L Potassium (3.5-5.1) mmol/L Chloride (98-107) mmol/L Carbon Dioxide (21.0-32.0) mmol/L BUN (7.0-18.0) mg/dL Creatinine (0.6-1.0) mg/dL Est Cr Clr Drug Dosing mL/min Estimated GFR (MDRD) ml/min Glucose (74-106) mg/dL POC Glucose 62 110 (60-110) mg/dL Calcium (8.5-10.1) mg/dL Magnesium 1.9 (1.8-2.4) mg/dL Total Bilirubin (0.2-1.0) mg/dL AST (15-37) IU/L ALT (14-63) IU/L Alkaline Phosphatase (46-116) U/L Total Protein (6.4-8.2) g/dL Albumin (3.4-5.0) g/dL Globulin (2.6-4.0) g/dL Albumin/Globulin Ratio (0.9-1.6) Lipase (73-393) U/L Urine Color Urine Appearance Urine pH (5.0-8.0) Ur Specific Humble (1.001-1.035) Urine Protein (NEGATIVE) mg/dL Urine Glucose (UA) (NEGATIVE) mg/dL Urine Ketones (NEGATIVE) mg/dL Urine Occult Blood (NEGATIVE) Urine Nitrite (NEGATIVE) Urine Bilirubin (NEGATIVE) Urine Urobilinogen (<2.0) EU/dL Ur Leukocyte Esterase (NEGATIVE) 10/26/19 Range/Units 12:06 WBC (4.0-11.0) K/uL RBC (4.30-5.90) M/uL Hgb (12.0-16.0) g/dL Hct (36.0-46.0) % MCV (80.0-98.0) fL MCH (27.0-32.0) pg MCHC (31.0-37.0) g/dL RDW Std Deviation (28.0-62.0) fl RDW Coeff of Shaq (11.0-15.0) % Plt Count (150-400) K/uL MPV (7.40-12.00) fL Add Manual Diff Neutrophils % (Manual) (48.0-80.0) % Band Neutrophils % % Lymphocytes % (Manual) (16.0-40.0) % Monocytes % (Manual) (0.0-15.0) % Eosinophils % (Manual) (0.0-7.0) % Basophils % (Manual) (0.0-1.5) % Metamyelocytes % % Nucleated RBC % /100WBC Absolute Seg Neuts (1.4-5.7) Band Neutrophils # Lymphocytes # (Manual) (0.6-2.4) Monocytes # (Manual) (0.0-0.8) Eosinophils # (Manual) (0.0-0.7) Basophils # (Manual) (0.0-0.1) Absolute Metamyelocyte Nucleated RBCs # K/uL Lactate (0.20-2.00) mmol/L Sodium (136-145) mmol/L Potassium (3.5-5.1) mmol/L Chloride (98-107) mmol/L Carbon Dioxide (21.0-32.0) mmol/L BUN (7.0-18.0) mg/dL Creatinine (0.6-1.0) mg/dL Est Cr Clr Drug Dosing mL/min Estimated GFR (MDRD) ml/min Glucose (74-106) mg/dL POC Glucose 96 (60-110) mg/dL Calcium (8.5-10.1) mg/dL Magnesium (1.8-2.4) mg/dL Total Bilirubin (0.2-1.0) mg/dL AST (15-37) IU/L ALT (14-63) IU/L Alkaline Phosphatase (46-116) U/L Total Protein (6.4-8.2) g/dL Albumin (3.4-5.0) g/dL Globulin (2.6-4.0) g/dL Albumin/Globulin Ratio (0.9-1.6) Lipase (73-393) U/L Urine Color Urine Appearance Urine pH (5.0-8.0) Ur Specific Humble (1.001-1.035) Urine Protein (NEGATIVE) mg/dL Urine Glucose (UA) (NEGATIVE) mg/dL Urine Ketones (NEGATIVE) mg/dL Urine Occult Blood (NEGATIVE) Urine Nitrite (NEGATIVE) Urine Bilirubin (NEGATIVE) Urine Urobilinogen (<2.0) EU/dL Ur Leukocyte Esterase (NEGATIVE) Result Diagrams: 10/26/19 06:24 10/26/19 06:24 Sepsis Event Note - Evaluation Sepsis Screening Result: No Definite Risk - Focused Exam Vital Signs: Vital Signs Temp Pulse Resp BP BP Pulse Ox 10/26/19 12:40 98.8 F 86 16 152/81 H 92 L 10/26/19 04:45 97.7 F 99 159/77 H 94 L Date Exam was Performed: 10/26/19 Time Exam was Performed: 13:30 - Problem List (1) Obstruction of intestine SNOMED Code(s): 88382585 ICD Code: K56.609 - UNSP INTESTNL OBST, UNSP TO PARTIAL VERSUS COMPLETE OBST Status: Acute Current Visit: Yes Qualifiers: Intestinal obstruction type: unspecified Intestinal obstruction extent: partial Qualified Code(s): K56.600 - Partial intestinal obstruction, unspecified as to cause (2) Dehydration SNOMED Code(s): 46475985 ICD Code: E86.0 - DEHYDRATION Status: Acute Current Visit: No (3) COPD (chronic obstructive pulmonary disease) SNOMED Code(s): 16097429 ICD Code: J44.9 - CHRONIC OBSTRUCTIVE PULMONARY DISEASE, UNSPECIFIED Status : Chronic Priority: Medium Current Visit: No Qualifiers: COPD type: unspecified COPD Qualified Code(s): J44.9 - Chronic obstructive pulmonary disease, unspecified (4) On home oxygen therapy SNOMED Code(s): 779249003291 ICD Code: Z99.81 - DEPENDENCE ON SUPPLEMENTAL OXYGEN Status: Chronic Priority: Medium Current Visit: No Problem List Initiated/Reviewed/Updated: Yes Orders Last 24hrs: Active Orders 24 hr Category Date Time Status Patient Status [ADT] Routine ADT 10/26/19 11:52 Active Blood Glucose Check, Bedside [RC] Q4H Care 10/26/19 11:52 Active Communication Order [RC] PER UNIT ROUTINE Care 10/26/19 01:16 Active Communication Order [RC] ROUTINE Care 10/26/19 10:40 Active Notify Provider Consults [RC] ASDIRECTED Care 10/25/19 22:39 Active Consult to Physician [CONS] Stat Cons 10/25/19 22:38 Active NPO [Nothing Per Oral Diet] [DIET] Diet 10/26/19 Breakfast Active Ciprofloxacin in D5W [Cipro in D5W 400 MG/200 ML] 400 Med 10/26/19 02:00 Active mg Premix Bag 1 bag IV Q12H D5 1/2 NS w/ 20 mEq/L KCl 1,000 ml Med 10/26/19 08:15 Active IV ASDIRECTED LORazepam [Ativan] Med 10/26/19 02:34 Active 1 mg IVPUSH Q4H PRN Morphine Med 10/26/19 02:34 Active 2 mg IVPUSH Q2H PRN Ondansetron [Zofran] Med 10/26/19 02:34 Active 4 mg IVPUSH Q4H PRN Sodium Chloride 0.9% [Saline Flush] Med 10/25/19 19:33 Active 10 ml FLUSH ASDIRECTED PRN Sodium Chloride 0.9% [Saline Flush] Med 10/25/19 19:33 Active 2.5 ml FLUSH ASDIRECTED PRN metroNIDAZOLE/Normal Saline [Flagyl 500 MG in NS 100 ML Med 10/26/19 04:00 Active ] 500 mg Premix Bag 1 bag IV Q6H Nasogastric Orogastric Tube Insertion [OM.PC] Stat Ot 10/25/19 22:38 Ordered Saline Lock Insert [OM.PC] Stat Ot 10/25/19 19:32 Ordered Medication Orders Ciprofloxacin/Dextrose 400 mg/ (Premix) 200 mls @ 200 mls/hr IV Q12H [facility] Last Admin: 10/26/19 03:09 Dose: 200 mls/hr Metronidazole 500 mg/ Premix 100 mls @ 100 mls/hr IV Q6H [facility] Last Admin: 10/26/19 09:36 Dose: 100 mls/hr Infusion: 10/26/19 05:35 Dose: 100 mls/hr Admin: 10/26/19 04:35 Dose: 100 mls/hr Potassium Chloride/Dextrose/Sod Cl (D5 1/2 Ns W/ 20 Meq/L Kcl) 1,000 mls @ 125 mls/hr IV ASDIRECTED [facility] Last Admin: 10/26/19 09:18 Dose: 125 mls/hr Lorazepam (Ativan) 1 mg IVPUSH Q4H PRN PRN Reason: Agitation Last Admin: 10/26/19 12:23 Dose: 1 mg Admin: 10/26/19 08:13 Dose: 1 mg Morphine Sulfate (Morphine) 2 mg IVPUSH Q2H PRN PRN Reason: Pain Last Admin: 10/26/19 12:22 Dose: 2 mg Admin: 10/26/19 10:17 Dose: 2 mg Admin: 10/26/19 08:11 Dose: 2 mg Admin: 10/26/19 05:25 Dose: 2 mg Admin: 10/26/19 02:56 Dose: 2 mg Ondansetron HCl (Zofran) 4 mg IVPUSH Q4H PRN PRN Reason: Nausea Sodium Chloride (Saline Flush) 10 ml FLUSH ASDIRECTED PRN PRN Reason: Keep Vein Open Sodium Chloride (Saline Flush) 2.5 ml FLUSH ASDIRECTED PRN PRN Reason: Keep Vein Open Assessment/Plan Comment:: This 58 year old female admitted with SBO/ post op ileus. 1. SBO/Post-ileus; Hypoglycemia noted this am. 1/2 D50 amp given, will change IVF to D5 1/2 NS with KCL. Keep potassium above 4.0. Monitor Magnesium as well. Continue NPO. Pain medications PRN, try limit. Encourage ambulation. Dr Nance consulted, we appreciate his assistance with this patient. Gallbladder shows possible inflammatory changes, could be due to not eating. Will continue with Flagyl and Cipro for now. 2. COPD: Stable, PRN oxygen at home with exertion. VTE prophylaxis: Lovenox Dispo: will change to inpatient today, as she will be here greater than 2 midnights. - Mortality Measure Prognosis:: Good
[2019-10-26] MEDS: Enoxaparin 40 MG/0.4 ML Syringe SUBCUT SCH (13:43)
--- NOTE | 2019-10-26 13:46 | CONS ---
DATE OF CONSULTATION: 10/26/2019 DATE OF : 1960 PRIMARY CARE PHYSICIAN: Yaw Loza M.D. REASON FOR CONSULTATION: Consult from Amarilis Antunez and Dr. Fuller for abdominal pain. HISTORY OF PRESENT ILLNESS: The patient is 58-year-old lady, small built, and had history of small bowel obstruction two times and perforated and has been sent to [place], had Dr. Jones do the surgery, that was in June. The patient subsequently complicated with parastomal hernia and has a colostomy takedown on October 12. The patient remarked that her abdominal pain has never subsided and this time should check in the hospital because of abdominal pain again, and she remarked she is not nauseated and also passing gas. In the emergency room workup, white count is normal, lactate is 0.8, and CAT scan shows mildly dilated jejunum which is quite high from the colon. The patient was admitted to hospitalist for further workup with NG tube decompression. PAST MEDICAL HISTORY: Significant for no diabetes, DE, CVA, hypertension. PAST SURGICAL HISTORY: As dictated above. ALLERGIES: Please refer to nursing for details. MEDICATIONS: Please refer to nursing for details. FAMILY HISTORY: Noncontributory. SOCIAL HISTORY: Former smoker and denied alcohol use. PHYSICAL EXAMINATION: GENERAL: A very pleasant lady, smiled to the doctor, in no acute distress. NG tube is in suction. HEENT: Normocephalic and atraumatic. Sclerae anicteric. LUNGS: Clear to auscultation. HEART: Regular rate and rhythm. ABDOMEN: Soft, nondistended. No pulsating, tender, midline abdominal structure and with a gush of bowel sounds and consistent with possible partial obstruction. Nontender at all. LABORATORY DATA: White count 7, H and H are 11 and 34. Potassium of 3.3. BUN is 6, creatinine is 0.5. Urine has no signs or symptoms of UTI. Toxicology, positive for opioid and positive for benzodiazepine. IMPRESSION: Abdominal pain. The patient has it before the perforation, after the perforation, colostomy formation, and colostomy takedown. The patient continued to complain of abdominal pain. Even this morning, on examination, the patient complained about pain, but on examination really not feeling that much. On top of this, the patient was passing gas yesterday prior to admission and passing gas today. The patient on CAT scan shows mild dilated small bowel. It will be a good idea to have NG tube decompression and n.p.o. and follow the slightly dilated bowel, and in case there is a surgical need, the patient probably would need to return to Dr. Jones as 12 days from surgery is still a take back and prior surgeon would appreciate to know if the patient develops into the need for surgery. At the present stage, there is no surgery needed. We will continue to follow the patient with you. TAMMY SHARIF /[id number] ROZINA
[2019-10-26] MEDS: Ondansetron 4 MG/2 ML SDV IVPUSH PRN (15:10)
[2019-10-26] MEDS: Pantoprazole 40 MG in Sodium Chloride 0.9% 10 ML IV SCH (22:52)
[2019-10-27] MEDS: Morphine 2 MG/ML Syringe IVPUSH PRN ×10 (01:09→21:52)
[2019-10-27] MEDS: Ciprofloxacin in D5W 400 MG in Premix Bag 1 BAG IV SCH ×4 (02:16→14:34)
[2019-10-27] MEDS: LORazepam 2 MG/ML SDV IVPUSH PRN ×5 (03:48→22:17)
[2019-10-27] MEDS: metroNIDAZOLE/Normal Saline 500 MG in Premix Bag 1 BAG IV SCH ×4 (03:55→21:57)
[2019-10-27 06:40] LABS: BLOOD UREA NITROGEN,BUN 3 mg/dL (7.0-18.0); CARBON DIOXIDE,CO2 28.9 mmol/L (21.0-32.0); CHLORIDE,CL 102 mmol/L (98-107); GLUCOSE RANDOM 105 mg/dL (74-106); POTASSIUM,K 3.4 mmol/L (3.5-5.1); SODIUM,NA 139 mmol/L (136-145)
--- NOTE | 2019-10-27 08:38 | PCM.PN ---
- General Info Date of Service: 10/27/19 Subjective Update: Patient reports she feels about the same. Is passing gas but no bowel movement. NG placed, had blood last night, nursing noted someone had turned it to high suction, it was turned back down, started on Protonix IV, and no further episodes. Patient noted that she bleed a lot when they placed it. - Review of Systems General: Reports: No Symptoms HEENT: Reports: No Symptoms Pulmonary: Reports: No Symptoms Cardiovascular: Reports: No Symptoms Gastrointestinal: Reports: Abdominal Pain Genitourinary: Reports: No Symptoms Musculoskeletal: Reports: No Symptoms Skin: Reports: No Symptoms Neurological: Reports: No Symptoms Psychiatric: Reports: No Symptoms - Patient Data Vitals - Most Recent: Last Vital Signs Temp 98.6 F 10/27/19 07:00 Pulse 82 10/27/19 07:00 Resp 16 10/27/19 07:00 BP 145/73 H 10/27/19 07:00 Pulse Ox 93 L 10/27/19 07:00 Weight - Most Recent: 57 kg I&O - Last 24 Hours: Intake & Output 10/26/19 10/27/19 10/27/19 22:59 06:59 14:59 Intake Total 1235 750 Output Total 1880 1100 Balance -645 -350 Lab Results Last 24 Hours: Laboratory Results - last 24 hr 10/26/19 10/26/19 10/26/19 Range/Units 06:24 10:02 12:06 WBC (4.0-11.0) K/uL RBC (4.30-5.90) M/uL Hgb (12.0-16.0) g/dL Hct (36.0-46.0) % MCV (80.0-98.0) fL MCH (27.0-32.0) pg MCHC (31.0-37.0) g/dL RDW Std Deviation (28.0-62.0) fl RDW Coeff of Shaq (11.0-15.0) % Plt Count (150-400) K/uL MPV (7.40-12.00) fL Add Manual Diff Neutrophils % (Manual) (48.0-80.0) % Band Neutrophils % % Lymphocytes % (Manual) (16.0-40.0) % Monocytes % (Manual) (0.0-15.0) % Eosinophils % (Manual) (0.0-7.0) % Basophils % (Manual) (0.0-1.5) % Nucleated RBC % /100WBC Absolute Seg Neuts (1.4-5.7) Band Neutrophils # Lymphocytes # (Manual) (0.6-2.4) Monocytes # (Manual) (0.0-0.8) Eosinophils # (Manual) (0.0-0.7) Basophils # (Manual) (0.0-0.1) Nucleated RBCs # K/uL Sodium (136-145) mmol/L Potassium (3.5-5.1) mmol/L Chloride (98-107) mmol/L Carbon Dioxide (21.0-32.0) mmol/L BUN (7.0-18.0) mg/dL Creatinine (0.6-1.0) mg/dL Est Cr Clr Drug Dosing mL/min Estimated GFR (MDRD) ml/min Glucose (74-106) mg/dL POC Glucose 110 96 (60-110) mg/dL Calcium (8.5-10.1) mg/dL Magnesium 1.9 (1.8-2.4) mg/dL Total Bilirubin (0.2-1.0) mg/dL AST (15-37) IU/L ALT (14-63) IU/L Alkaline Phosphatase (46-116) U/L Total Protein (6.4-8.2) g/dL Albumin (3.4-5.0) g/dL Globulin (2.6-4.0) g/dL Albumin/Globulin Ratio (0.9-1.6) 10/26/19 10/26/19 10/27/19 Range/Units 16:39 20:20 00:45 WBC (4.0-11.0) K/uL RBC (4.30-5.90) M/uL Hgb (12.0-16.0) g/dL Hct (36.0-46.0) % MCV (80.0-98.0) fL MCH (27.0-32.0) pg MCHC (31.0-37.0) g/dL RDW Std Deviation (28.0-62.0) fl RDW Coeff of Shaq (11.0-15.0) % Plt Count (150-400) K/uL MPV (7.40-12.00) fL Add Manual Diff Neutrophils % (Manual) (48.0-80.0) % Band Neutrophils % % Lymphocytes % (Manual) (16.0-40.0) % Monocytes % (Manual) (0.0-15.0) % Eosinophils % (Manual) (0.0-7.0) % Basophils % (Manual) (0.0-1.5) % Nucleated RBC % /100WBC Absolute Seg Neuts (1.4-5.7) Band Neutrophils # Lymphocytes # (Manual) (0.6-2.4) Monocytes # (Manual) (0.0-0.8) Eosinophils # (Manual) (0.0-0.7) Basophils # (Manual) (0.0-0.1) Nucleated RBCs # K/uL Sodium (136-145) mmol/L Potassium (3.5-5.1) mmol/L Chloride (98-107) mmol/L Carbon Dioxide (21.0-32.0) mmol/L BUN (7.0-18.0) mg/dL Creatinine (0.6-1.0) mg/dL Est Cr Clr Drug Dosing mL/min Estimated GFR (MDRD) ml/min Glucose (74-106) mg/dL POC Glucose 82 113 H 100 (60-110) mg/dL Calcium (8.5-10.1) mg/dL Magnesium (1.8-2.4) mg/dL Total Bilirubin (0.2-1.0) mg/dL AST (15-37) IU/L ALT (14-63) IU/L Alkaline Phosphatase (46-116) U/L Total Protein (6.4-8.2) g/dL Albumin (3.4-5.0) g/dL Globulin (2.6-4.0) g/dL Albumin/Globulin Ratio (0.9-1.6) 10/27/19 10/27/19 10/27/19 Range/Units 03:59 05:53 05:53 WBC 7.62 (4.0-11.0) K/uL RBC 4.23 L (4.30-5.90) M/uL Hgb 11.7 L (12.0-16.0) g/dL Hct 35.9 L (36.0-46.0) % MCV 84.9 (80.0-98.0) fL MCH 27.7 (27.0-32.0) pg MCHC 32.6 (31.0-37.0) g/dL RDW Std Deviation 50.4 (28.0-62.0) fl RDW Coeff of Shaq 16 H (11.0-15.0) % Plt Count 433 H (150-400) K/uL MPV 9.30 (7.40-12.00) fL Add Manual Diff YES Neutrophils % (Manual) 57 (48.0-80.0) % Band Neutrophils % 5 % Lymphocytes % (Manual) 32 (16.0-40.0) % Monocytes % (Manual) 4 (0.0-15.0) % Eosinophils % (Manual) 1 (0.0-7.0) % Basophils % (Manual) 1 (0.0-1.5) % Nucleated RBC % 0.0 /100WBC Absolute Seg Neuts 4.3 (1.4-5.7) Band Neutrophils # 0.4 Lymphocytes # (Manual) 2.4 (0.6-2.4) Monocytes # (Manual) 0.3 (0.0-0.8) Eosinophils # (Manual) 0.1 (0.0-0.7) Basophils # (Manual) 0.1 (0.0-0.1) Nucleated RBCs # 0 K/uL Sodium 139 (136-145) mmol/L Potassium 3.4 L (3.5-5.1) mmol/L Chloride 102 (98-107) mmol/L Carbon Dioxide 28.9 (21.0-32.0) mmol/L BUN 3 L (7.0-18.0) mg/dL Creatinine 0.5 L (0.6-1.0) mg/dL Est Cr Clr Drug Dosing 107.67 mL/min Estimated GFR (MDRD) > 60.0 ml/min Glucose 105 (74-106) mg/dL POC Glucose 98 (60-110) mg/dL Calcium 8.6 (8.5-10.1) mg/dL Magnesium (1.8-2.4) mg/dL Total Bilirubin 0.7 (0.2-1.0) mg/dL AST 13 L (15-37) IU/L ALT 13 L (14-63) IU/L Alkaline Phosphatase 97 (46-116) U/L Total Protein 7.0 (6.4-8.2) g/dL Albumin 3.1 L (3.4-5.0) g/dL Globulin 3.9 (2.6-4.0) g/dL Albumin/Globulin Ratio 0.8 L (0.9-1.6) 10/27/19 Range/Units 05:53 WBC (4.0-11.0) K/uL RBC (4.30-5.90) M/uL Hgb (12.0-16.0) g/dL Hct (36.0-46.0) % MCV (80.0-98.0) fL MCH (27.0-32.0) pg MCHC (31.0-37.0) g/dL RDW Std Deviation (28.0-62.0) fl RDW Coeff of Shaq (11.0-15.0) % Plt Count (150-400) K/uL MPV (7.40-12.00) fL Add Manual Diff Neutrophils % (Manual) (48.0-80.0) % Band Neutrophils % % Lymphocytes % (Manual) (16.0-40.0) % Monocytes % (Manual) (0.0-15.0) % Eosinophils % (Manual) (0.0-7.0) % Basophils % (Manual) (0.0-1.5) % Nucleated RBC % /100WBC Absolute Seg Neuts (1.4-5.7) Band Neutrophils # Lymphocytes # (Manual) (0.6-2.4) Monocytes # (Manual) (0.0-0.8) Eosinophils # (Manual) (0.0-0.7) Basophils # (Manual) (0.0-0.1) Nucleated RBCs # K/uL Sodium (136-145) mmol/L Potassium (3.5-5.1) mmol/L Chloride (98-107) mmol/L Carbon Dioxide (21.0-32.0) mmol/L BUN (7.0-18.0) mg/dL Creatinine (0.6-1.0) mg/dL Est Cr Clr Drug Dosing mL/min Estimated GFR (MDRD) ml/min Glucose (74-106) mg/dL POC Glucose (60-110) mg/dL Calcium (8.5-10.1) mg/dL Magnesium 1.8 (1.8-2.4) mg/dL Total Bilirubin (0.2-1.0) mg/dL AST (15-37) IU/L ALT (14-63) IU/L Alkaline Phosphatase (46-116) U/L Total Protein (6.4-8.2) g/dL Albumin (3.4-5.0) g/dL Globulin (2.6-4.0) g/dL Albumin/Globulin Ratio (0.9-1.6) Med Orders - Current: Current Medications Enoxaparin Sodium (Lovenox) 40 mg SUBCUT Q24H [facility] Last Admin: 10/26/19 13:43 Dose: 40 mg Ciprofloxacin/Dextrose 400 mg/ (Premix) 200 mls @ 200 mls/hr IV Q12H [facility] Last Admin: 10/27/19 02:16 Dose: 200 mls/hr Metronidazole 500 mg/ Premix 100 mls @ 100 mls/hr IV Q6H [facility] Last Admin: 10/27/19 03:55 Dose: 100 mls/hr Potassium Chloride/Dextrose/Sod Cl (D5 1/2 Ns W/ 20 Meq/L Kcl) 1,000 mls @ 125 mls/hr IV ASDIRECTED [facility] Last Admin: 10/26/19 20:17 Dose: 125 mls/hr Pantoprazole Sodium 40 mg/ (Sodium Chloride) 10 mls @ 300 mls/hr IV Q12H [facility] Last Admin: 10/26/19 22:52 Dose: 300 mls/hr Lorazepam (Ativan) 1 mg IVPUSH Q4H PRN PRN Reason: Agitation Last Admin: 10/27/19 08:02 Dose: 1 mg Morphine Sulfate (Morphine) 2 mg IVPUSH Q2H PRN PRN Reason: Pain Last Admin: 10/27/19 08:04 Dose: 2 mg Ondansetron HCl (Zofran) 4 mg IVPUSH Q4H PRN PRN Reason: Nausea Last Admin: 10/26/19 15:10 Dose: 4 mg Sodium Chloride (Saline Flush) 10 ml FLUSH ASDIRECTED PRN PRN Reason: Keep Vein Open Sodium Chloride (Saline Flush) 2.5 ml FLUSH ASDIRECTED PRN PRN Reason: Keep Vein Open Discontinued Medications Dextrose/Water (Dextrose 50% In Water) 25 ml IVPUSH ONETIME ONE Stop: 10/26/19 08:02 Last Admin: 10/26/19 08:55 Dose: 25 ml Sodium Chloride (Normal Saline) 1,000 mls @ 125 mls/hr IV ASDIRECTED [facility] Last Infusion: 10/25/19 20:30 Dose: 125 mls/hr Sodium Chloride (Normal Saline) 1,000 mls @ 125 mls/hr IV ASDIRECTED [facility] Last Admin: 10/26/19 01:00 Dose: 125 mls/hr Iopamidol (Isovue-370 (76%)) 100 ml IVPUSH ONETIME STA Stop: 10/25/19 21:19 Last Admin: 10/26/19 00:35 Dose: 100 ml Morphine Sulfate (Morphine) 4 mg IVPUSH ONETIME ONE Stop: 10/25/19 19:34 Last Admin: 10/25/19 19:57 Dose: 4 mg Morphine Sulfate (Morphine) 2 mg IVPUSH ONETIME ONE Stop: 10/25/19 22:40 Last Admin: 10/25/19 22:47 Dose: 2 mg Ondansetron HCl (Zofran) 4 mg IVPUSH ONETIME ONE Stop: 10/25/19 19:34 Last Admin: 10/25/19 19:54 Dose: 4 mg - Exam General: Alert, Oriented, Cooperative HEENT: Other (NG- now clear) Lungs: Clear to Auscultation, Normal Respiratory Effort Cardiovascular: Regular Rate, Regular Rhythm GI/Abdominal Exam: Normal Bowel Sounds, Soft, Tender. No: Guarding, Rigid, Rebound Extremities: No Pedal Edema Skin: Warm, Dry, Intact Neurological: No New Focal Deficit Psy/Mental Status: Alert, Normal Affect, Normal Mood Sepsis Event Note - Evaluation Sepsis Screening Result: No Definite Risk - Focused Exam Vital Signs: Vital Signs Temp Pulse Resp BP Pulse Ox 10/27/19 07:00 98.6 F 82 16 145/73 H 93 L 10/27/19 03:18 98 F 87 18 149/76 H 95 10/26/19 23:43 98.1 F 86 20 149/74 H 92 L Date Exam was Performed: 10/27/19 Time Exam was Performed: 12:18 - Problem List Review Problem List Initiated/Reviewed/Updated: Yes - Plan Plan:: This 58 year old female admitted with SBO/ post op ileus. 1. SBO/Post-ileus; Passing gas but not stool. Continue IVF D5 1/2 NS with 40 KCL due to episodes of hypoglycemia yesterday.. Keep potassium above 4.0. Monitor magnesium, wnl today. Continue NPO. Pain medications PRN, try limit. Encourage ambulation. Dr Nance consulted and recommended conservative management, if situation should arise that she would need surgical intervention, transfer to higher level of care. Gallbladder shows possible inflammatory changes, could be due to not eating. Will continue with Flagyl and Cipro for now. Monitor for signs of blood in NG. Continue IV PPI. 2. COPD: Stable, PRN oxygen at home with exertion. VTE prophylaxis: Lovenox
[2019-10-27] MEDS: D5 1/2 NS w/ 20 mEq/L KCl 1,000 ML IV SCH (08:56)
[2019-10-27] MEDS: Pantoprazole 40 MG in Sodium Chloride 0.9% 10 ML IV SCH ×2 (10:25→21:44)
[2019-10-27] MEDS: D5 1/2 NS w/ 40 mEq/L KCl 1,000 ML IV SCH (12:56)
[2019-10-27] MEDS: Enoxaparin 40 MG/0.4 ML Syringe SUBCUT SCH (13:09)
--- NOTE | 2019-10-27 13:35 | PCM.SURGPN ---
- General Info Date of Service: 10/27/19 Functional Status: Reports: Pain Controlled - Review of Systems General: Reports: No Symptoms (denied nausea/emisis, passing gas) - Patient Data Vitals - Most Recent: Last Vital Signs Temp 98.2 F 10/27/19 11:00 Pulse 88 10/27/19 11:00 Resp 16 10/27/19 11:00 BP 145/73 H 10/27/19 07:00 Pulse Ox 95 10/27/19 11:00 Weight - Most Recent: 125 lb 10.616 oz I&O - Last 24 Hours: Intake & Output 10/26/19 10/27/19 10/27/19 22:59 06:59 14:59 Intake Total 1235 750 Output Total 1880 1100 Balance -645 -350 Lab Results Last 24 Hrs: Laboratory Results - last 24 hr 10/26/19 10/26/19 10/27/19 Range/Units 16:39 20:20 00:45 WBC (4.0-11.0) K/uL RBC (4.30-5.90) M/uL Hgb (12.0-16.0) g/dL Hct (36.0-46.0) % MCV (80.0-98.0) fL MCH (27.0-32.0) pg MCHC (31.0-37.0) g/dL RDW Std Deviation (28.0-62.0) fl RDW Coeff of Shaq (11.0-15.0) % Plt Count (150-400) K/uL MPV (7.40-12.00) fL Add Manual Diff Neutrophils % (Manual) (48.0-80.0) % Band Neutrophils % % Lymphocytes % (Manual) (16.0-40.0) % Monocytes % (Manual) (0.0-15.0) % Eosinophils % (Manual) (0.0-7.0) % Basophils % (Manual) (0.0-1.5) % Nucleated RBC % /100WBC Absolute Seg Neuts (1.4-5.7) Band Neutrophils # Lymphocytes # (Manual) (0.6-2.4) Monocytes # (Manual) (0.0-0.8) Eosinophils # (Manual) (0.0-0.7) Basophils # (Manual) (0.0-0.1) Nucleated RBCs # K/uL Sodium (136-145) mmol/L Potassium (3.5-5.1) mmol/L Chloride (98-107) mmol/L Carbon Dioxide (21.0-32.0) mmol/L BUN (7.0-18.0) mg/dL Creatinine (0.6-1.0) mg/dL Est Cr Clr Drug Dosing mL/min Estimated GFR (MDRD) ml/min Glucose (74-106) mg/dL POC Glucose 82 113 H 100 (60-110) mg/dL Calcium (8.5-10.1) mg/dL Magnesium (1.8-2.4) mg/dL Total Bilirubin (0.2-1.0) mg/dL AST (15-37) IU/L ALT (14-63) IU/L Alkaline Phosphatase (46-116) U/L Total Protein (6.4-8.2) g/dL Albumin (3.4-5.0) g/dL Globulin (2.6-4.0) g/dL Albumin/Globulin Ratio (0.9-1.6) 10/27/19 10/27/19 10/27/19 Range/Units 03:59 05:53 05:53 WBC 7.62 (4.0-11.0) K/uL RBC 4.23 L (4.30-5.90) M/uL Hgb 11.7 L (12.0-16.0) g/dL Hct 35.9 L (36.0-46.0) % MCV 84.9 (80.0-98.0) fL MCH 27.7 (27.0-32.0) pg MCHC 32.6 (31.0-37.0) g/dL RDW Std Deviation 50.4 (28.0-62.0) fl RDW Coeff of Shaq 16 H (11.0-15.0) % Plt Count 433 H (150-400) K/uL MPV 9.30 (7.40-12.00) fL Add Manual Diff YES Neutrophils % (Manual) 57 (48.0-80.0) % Band Neutrophils % 5 % Lymphocytes % (Manual) 32 (16.0-40.0) % Monocytes % (Manual) 4 (0.0-15.0) % Eosinophils % (Manual) 1 (0.0-7.0) % Basophils % (Manual) 1 (0.0-1.5) % Nucleated RBC % 0.0 /100WBC Absolute Seg Neuts 4.3 (1.4-5.7) Band Neutrophils # 0.4 Lymphocytes # (Manual) 2.4 (0.6-2.4) Monocytes # (Manual) 0.3 (0.0-0.8) Eosinophils # (Manual) 0.1 (0.0-0.7) Basophils # (Manual) 0.1 (0.0-0.1) Nucleated RBCs # 0 K/uL Sodium 139 (136-145) mmol/L Potassium 3.4 L (3.5-5.1) mmol/L Chloride 102 (98-107) mmol/L Carbon Dioxide 28.9 (21.0-32.0) mmol/L BUN 3 L (7.0-18.0) mg/dL Creatinine 0.5 L (0.6-1.0) mg/dL Est Cr Clr Drug Dosing 107.67 mL/min Estimated GFR (MDRD) > 60.0 ml/min Glucose 105 (74-106) mg/dL POC Glucose 98 (60-110) mg/dL Calcium 8.6 (8.5-10.1) mg/dL Magnesium (1.8-2.4) mg/dL Total Bilirubin 0.7 (0.2-1.0) mg/dL AST 13 L (15-37) IU/L ALT 13 L (14-63) IU/L Alkaline Phosphatase 97 (46-116) U/L Total Protein 7.0 (6.4-8.2) g/dL Albumin 3.1 L (3.4-5.0) g/dL Globulin 3.9 (2.6-4.0) g/dL Albumin/Globulin Ratio 0.8 L (0.9-1.6) 10/27/19 10/27/19 10/27/19 Range/Units 05:53 08:57 12:43 WBC (4.0-11.0) K/uL RBC (4.30-5.90) M/uL Hgb (12.0-16.0) g/dL Hct (36.0-46.0) % MCV (80.0-98.0) fL MCH (27.0-32.0) pg MCHC (31.0-37.0) g/dL RDW Std Deviation (28.0-62.0) fl RDW Coeff of Shaq (11.0-15.0) % Plt Count (150-400) K/uL MPV (7.40-12.00) fL Add Manual Diff Neutrophils % (Manual) (48.0-80.0) % Band Neutrophils % % Lymphocytes % (Manual) (16.0-40.0) % Monocytes % (Manual) (0.0-15.0) % Eosinophils % (Manual) (0.0-7.0) % Basophils % (Manual) (0.0-1.5) % Nucleated RBC % /100WBC Absolute Seg Neuts (1.4-5.7) Band Neutrophils # Lymphocytes # (Manual) (0.6-2.4) Monocytes # (Manual) (0.0-0.8) Eosinophils # (Manual) (0.0-0.7) Basophils # (Manual) (0.0-0.1) Nucleated RBCs # K/uL Sodium (136-145) mmol/L Potassium (3.5-5.1) mmol/L Chloride (98-107) mmol/L Carbon Dioxide (21.0-32.0) mmol/L BUN (7.0-18.0) mg/dL Creatinine (0.6-1.0) mg/dL Est Cr Clr Drug Dosing mL/min Estimated GFR (MDRD) ml/min Glucose (74-106) mg/dL POC Glucose 112 H 100 (60-110) mg/dL Calcium (8.5-10.1) mg/dL Magnesium 1.8 (1.8-2.4) mg/dL Total Bilirubin (0.2-1.0) mg/dL AST (15-37) IU/L ALT (14-63) IU/L Alkaline Phosphatase (46-116) U/L Total Protein (6.4-8.2) g/dL Albumin (3.4-5.0) g/dL Globulin (2.6-4.0) g/dL Albumin/Globulin Ratio (0.9-1.6) Med Orders - Current: Current Medications Enoxaparin Sodium (Lovenox) 40 mg SUBCUT Q24H [facility] Last Admin: 10/27/19 13:09 Dose: 40 mg Ciprofloxacin/Dextrose 400 mg/ (Premix) 200 mls @ 200 mls/hr IV Q12H [facility] Last Admin: 10/27/19 02:16 Dose: 200 mls/hr Metronidazole 500 mg/ Premix 100 mls @ 100 mls/hr IV Q6H [facility] Last Admin: 10/27/19 10:31 Dose: 100 mls/hr Potassium Chloride/Dextrose/Sod Cl (D5 1/2 Ns W/ 20 Meq/L Kcl) 1,000 mls @ 125 mls/hr IV ASDIRECTED [facility] Last Admin: 10/27/19 08:56 Dose: 125 mls/hr Pantoprazole Sodium 40 mg/ (Sodium Chloride) 10 mls @ 300 mls/hr IV Q12H [facility] Last Admin: 10/27/19 10:25 Dose: 300 mls/hr Potassium Chloride/Dextrose/Sod Cl (D5 1/2 Ns W/ 40 Meq/L Kcl) 1,000 mls @ 125 mls/hr IV ASDIRECTED [facility] Last Admin: 10/27/19 12:56 Dose: 125 mls/hr Lorazepam (Ativan) 1 mg IVPUSH Q4H PRN PRN Reason: Agitation Last Admin: 10/27/19 12:48 Dose: 1 mg Morphine Sulfate (Morphine) 2 mg IVPUSH Q2H PRN PRN Reason: Pain Last Admin: 10/27/19 12:47 Dose: 2 mg Ondansetron HCl (Zofran) 4 mg IVPUSH Q4H PRN PRN Reason: Nausea Last Admin: 10/26/19 15:10 Dose: 4 mg Sodium Chloride (Saline Flush) 10 ml FLUSH ASDIRECTED PRN PRN Reason: Keep Vein Open Sodium Chloride (Saline Flush) 2.5 ml FLUSH ASDIRECTED PRN PRN Reason: Keep Vein Open Discontinued Medications Dextrose/Water (Dextrose 50% In Water) 25 ml IVPUSH ONETIME ONE Stop: 10/26/19 08:02 Last Admin: 10/26/19 08:55 Dose: 25 ml Sodium Chloride (Normal Saline) 1,000 mls @ 125 mls/hr IV ASDIRECTED [facility] Last Infusion: 10/25/19 20:30 Dose: 125 mls/hr Sodium Chloride (Normal Saline) 1,000 mls @ 125 mls/hr IV ASDIRECTED [facility] Last Admin: 10/26/19 01:00 Dose: 125 mls/hr Iopamidol (Isovue-370 (76%)) 100 ml IVPUSH ONETIME STA Stop: 10/25/19 21:19 Last Admin: 10/26/19 00:35 Dose: 100 ml Morphine Sulfate (Morphine) 4 mg IVPUSH ONETIME ONE Stop: 10/25/19 19:34 Last Admin: 10/25/19 19:57 Dose: 4 mg Morphine Sulfate (Morphine) 2 mg IVPUSH ONETIME ONE Stop: 10/25/19 22:40 Last Admin: 10/25/19 22:47 Dose: 2 mg Ondansetron HCl (Zofran) 4 mg IVPUSH ONETIME ONE Stop: 10/25/19 19:34 Last Admin: 10/25/19 19:54 Dose: 4 mg - Exam GI/Abdominal Exam: Normal Bowel Sounds, Non-Tender, No Distention (abd soft, normal bowel sound) Sepsis Event Note - Evaluation Sepsis Screening Result: No Definite Risk - Focused Exam Vital Signs: Vital Signs Temp Pulse Resp BP Pulse Ox 10/27/19 11:00 98.2 F 88 16 95 10/27/19 07:00 98.6 F 82 16 145/73 H 93 L 10/27/19 03:18 98 F 87 18 149/76 H 95 Date Exam was Performed: 10/27/19 Time Exam was Performed: 13:09 - Problem List Review Problem List Initiated/Reviewed/Updated: Yes - My Orders Last 24 Hours: Active Orders 24 hr Category Date Time Status Ambulate [RC] ASDIRECTED Care 10/26/19 13:15 Active Intake and Output [RC] Q12H Care 10/26/19 13:16 Active May Shower [RC] ASDIRECTED Care 10/26/19 13:15 Active Oxygen Therapy [RC] PRN Care 10/26/19 13:15 Active VTE/DVT Education [RC] PER UNIT ROUTINE Care 10/26/19 13:15 Active Vital Signs [RC] Q4H Care 10/26/19 13:15 Active BASIC METABOLIC PANEL,BMP [CHEM] AM Lab 10/28/19 05:11 Ordered CBC WITH AUTO DIFF [HEME] AM Lab 10/28/19 05:11 Ordered D5 1/2 NS w/ 40 mEq/L KCl 1,000 ml Med 10/27/19 12:00 Active IV ASDIRECTED Enoxaparin [Lovenox] Med 10/26/19 13:15 Active 40 mg SUBCUT Q24H Pantoprazole [ProTONIX IV] 40 mg Med 10/26/19 22:30 Active Sodium Chloride 0.9% [Normal Saline] 10 ml IV Q12H Resuscitation Status Routine Resus Stat 10/26/19 13:15 Ordered Medication Orders Enoxaparin Sodium (Lovenox) 40 mg SUBCUT Q24H [facility] Last Admin: 10/27/19 13:09 Dose: 40 mg Admin: 10/26/19 13:43 Dose: 40 mg Ciprofloxacin/Dextrose 400 mg/ (Premix) 200 mls @ 200 mls/hr IV Q12H [facility] Last Admin: 10/27/19 02:16 Dose: 200 mls/hr Infusion: 10/26/19 14:45 Dose: 200 mls/hr Admin: 10/26/19 13:45 Dose: 200 mls/hr Infusion: 10/26/19 04:09 Dose: 200 mls/hr Admin: 10/26/19 03:09 Dose: 200 mls/hr Metronidazole 500 mg/ Premix 100 mls @ 100 mls/hr IV Q6H [facility] Last Admin: 10/27/19 10:31 Dose: 100 mls/hr Infusion: 10/27/19 04:55 Dose: 100 mls/hr Admin: 10/27/19 03:55 Dose: 100 mls/hr Infusion: 10/26/19 23:02 Dose: 100 mls/hr Admin: 10/26/19 22:02 Dose: 100 mls/hr Infusion: 10/26/19 16:38 Dose: 100 mls/hr Admin: 10/26/19 15:38 Dose: 100 mls/hr Infusion: 10/26/19 10:36 Dose: 100 mls/hr Admin: 10/26/19 09:36 Dose: 100 mls/hr Infusion: 10/26/19 05:35 Dose: 100 mls/hr Admin: 10/26/19 04:35 Dose: 100 mls/hr Potassium Chloride/Dextrose/Sod Cl (D5 1/2 Ns W/ 20 Meq/L Kcl) 1,000 mls @ 125 mls/hr IV ASDIRECTED [facility] Last Admin: 10/27/19 08:56 Dose: 125 mls/hr Infusion: 10/27/19 04:17 Dose: 125 mls/hr Admin: 10/26/19 20:17 Dose: 125 mls/hr Infusion: 10/26/19 17:18 Dose: 125 mls/hr Admin: 10/26/19 09:18 Dose: 125 mls/hr Pantoprazole Sodium 40 mg/ (Sodium Chloride) 10 mls @ 300 mls/hr IV Q12H [facility] Last Admin: 10/27/19 10:25 Dose: 300 mls/hr Infusion: 10/26/19 22:54 Dose: 300 mls/hr Admin: 10/26/19 22:52 Dose: 300 mls/hr Potassium Chloride/Dextrose/Sod Cl (D5 1/2 Ns W/ 40 Meq/L Kcl) 1,000 mls @ 125 mls/hr IV ASDIRECTED [facility] Last Admin: 10/27/19 12:56 Dose: 125 mls/hr Lorazepam (Ativan) 1 mg IVPUSH Q4H PRN PRN Reason: Agitation Last Admin: 10/27/19 12:48 Dose: 1 mg Admin: 10/27/19 08:02 Dose: 1 mg Admin: 10/27/19 03:48 Dose: 1 mg Admin: 10/26/19 21:53 Dose: 1 mg Admin: 10/26/19 16:45 Dose: 1 mg Admin: 10/26/19 12:23 Dose: 1 mg Admin: 10/26/19 08:13 Dose: 1 mg Morphine Sulfate (Morphine) 2 mg IVPUSH Q2H PRN PRN Reason: Pain Last Admin: 10/27/19 12:47 Dose: 2 mg Admin: 10/27/19 10:18 Dose: 2 mg Admin: 10/27/19 08:04 Dose: 2 mg Admin: 10/27/19 05:17 Dose: 2 mg Admin: 10/27/19 03:13 Dose: 2 mg Admin: 10/27/19 01:09 Dose: 2 mg Admin: 10/26/19 23:02 Dose: 2 mg Admin: 10/26/19 21:58 Dose: 2 mg Admin: 10/26/19 19:35 Dose: 2 mg Admin: 10/26/19 17:18 Dose: 2 mg Admin: 10/26/19 14:54 Dose: 2 mg Admin: 10/26/19 12:22 Dose: 2 mg Admin: 10/26/19 10:17 Dose: 2 mg Admin: 10/26/19 08:11 Dose: 2 mg Admin: 10/26/19 05:25 Dose: 2 mg Admin: 10/26/19 02:56 Dose: 2 mg Ondansetron HCl (Zofran) 4 mg IVPUSH Q4H PRN PRN Reason: Nausea Last Admin: 10/26/19 15:10 Dose: 4 mg Sodium Chloride (Saline Flush) 10 ml FLUSH ASDIRECTED PRN PRN Reason: Keep Vein Open Sodium Chloride (Saline Flush) 2.5 ml FLUSH ASDIRECTED PRN PRN Reason: Keep Vein Open
[2019-10-27] MEDS: Ondansetron 4 MG/2 ML SDV IVPUSH PRN ×2 (15:22→19:48)
[2019-10-28] MEDS: Morphine 2 MG/ML Syringe IVPUSH PRN ×11 (00:11→23:20)
[2019-10-28] MEDS: D5 1/2 NS w/ 40 mEq/L KCl 1,000 ML IV SCH (00:26)
[2019-10-28] MEDS: Ciprofloxacin in D5W 400 MG in Premix Bag 1 BAG IV SCH ×4 (01:52→14:29)
[2019-10-28] MEDS: LORazepam 2 MG/ML SDV IVPUSH PRN ×4 (02:21→16:21)
[2019-10-28] MEDS: metroNIDAZOLE/Normal Saline 500 MG in Premix Bag 1 BAG IV SCH ×4 (03:09→23:17)
[2019-10-28 06:37] LABS: BLOOD UREA NITROGEN,BUN 2 mg/dL (7.0-18.0); CARBON DIOXIDE,CO2 26.4 mmol/L (21.0-32.0); CHLORIDE,CL 102 mmol/L (98-107); GLUCOSE RANDOM 121 mg/dL (74-106); POTASSIUM,K 3.5 mmol/L (3.5-5.1); SODIUM,NA 137 mmol/L (136-145)
--- NOTE | 2019-10-28 08:04 | PCM.PN ---
<Corinna Martinez - Last Filed: 10/28/19 11:00> - General Info Date of Service: 10/28/19 Subjective Update: Patient states she feels like the pain is worse and she feels more distended. Passing gas but she has been the whole time, no bowel movement. Minimal NG output. - Review of Systems General: Reports: No Symptoms HEENT: Reports: No Symptoms Pulmonary: Reports: No Symptoms Cardiovascular: Reports: No Symptoms Gastrointestinal: Reports: Abdominal Pain, Nausea Genitourinary: Reports: No Symptoms Musculoskeletal: Reports: No Symptoms Skin: Reports: No Symptoms Neurological: Reports: No Symptoms Psychiatric: Reports: No Symptoms - Patient Data Vitals - Most Recent: Last Vital Signs Temp 98.6 F 10/28/19 04:00 Pulse 79 10/28/19 04:00 Resp 17 10/28/19 04:00 BP 147/73 H 10/28/19 04:00 Pulse Ox 94 L 10/28/19 04:00 Weight - Most Recent: 57 kg I&O - Last 24 Hours: Intake & Output 10/27/19 10/28/19 10/28/19 22:59 06:59 14:59 Intake Total 10 1232 Output Total 1300 2100 Balance -1290 -868 Lab Results Last 24 Hours: Laboratory Results - last 24 hr 10/27/19 10/27/19 10/27/19 Range/Units 08:57 12:43 16:01 WBC (4.0-11.0) K/uL RBC (4.30-5.90) M/uL Hgb (12.0-16.0) g/dL Hct (36.0-46.0) % MCV (80.0-98.0) fL MCH (27.0-32.0) pg MCHC (31.0-37.0) g/dL RDW Std Deviation (28.0-62.0) fl RDW Coeff of Shaq (11.0-15.0) % Plt Count (150-400) K/uL MPV (7.40-12.00) fL Neut % (Auto) (48.0-80.0) % Lymph % (Auto) (16.0-40.0) % Jerauld % (Auto) (0.0-15.0) % Eos % (Auto) (0.0-7.0) % Baso % (Auto) (0.0-1.5) % Neut # (Auto) (1.4-5.7) K/uL Lymph # (Auto) (0.6-2.4) K/uL Jerauld # (Auto) (0.0-0.8) K/uL Eos # (Auto) (0.0-0.7) K/uL Baso # (Auto) (0.0-0.1) K/uL Nucleated RBC % /100WBC Nucleated RBCs # K/uL Sodium (136-145) mmol/L Potassium (3.5-5.1) mmol/L Chloride (98-107) mmol/L Carbon Dioxide (21.0-32.0) mmol/L BUN (7.0-18.0) mg/dL Creatinine (0.6-1.0) mg/dL Est Cr Clr Drug Dosing mL/min Estimated GFR (MDRD) ml/min Glucose (74-106) mg/dL POC Glucose 112 H 100 115 H (60-110) mg/dL Calcium (8.5-10.1) mg/dL 10/27/19 10/28/19 10/28/19 Range/Units 19:58 00:10 04:01 WBC (4.0-11.0) K/uL RBC (4.30-5.90) M/uL Hgb (12.0-16.0) g/dL Hct (36.0-46.0) % MCV (80.0-98.0) fL MCH (27.0-32.0) pg MCHC (31.0-37.0) g/dL RDW Std Deviation (28.0-62.0) fl RDW Coeff of Shaq (11.0-15.0) % Plt Count (150-400) K/uL MPV (7.40-12.00) fL Neut % (Auto) (48.0-80.0) % Lymph % (Auto) (16.0-40.0) % Jerauld % (Auto) (0.0-15.0) % Eos % (Auto) (0.0-7.0) % Baso % (Auto) (0.0-1.5) % Neut # (Auto) (1.4-5.7) K/uL Lymph # (Auto) (0.6-2.4) K/uL Jerauld # (Auto) (0.0-0.8) K/uL Eos # (Auto) (0.0-0.7) K/uL Baso # (Auto) (0.0-0.1) K/uL Nucleated RBC % /100WBC Nucleated RBCs # K/uL Sodium (136-145) mmol/L Potassium (3.5-5.1) mmol/L Chloride (98-107) mmol/L Carbon Dioxide (21.0-32.0) mmol/L BUN (7.0-18.0) mg/dL Creatinine (0.6-1.0) mg/dL Est Cr Clr Drug Dosing mL/min Estimated GFR (MDRD) ml/min Glucose (74-106) mg/dL POC Glucose 120 H 89 76 (60-110) mg/dL Calcium (8.5-10.1) mg/dL 10/28/19 10/28/19 Range/Units 06:04 06:04 WBC 6.95 (4.0-11.0) K/uL RBC 4.30 (4.30-5.90) M/uL Hgb 11.9 L (12.0-16.0) g/dL Hct 36.2 (36.0-46.0) % MCV 84.2 (80.0-98.0) fL MCH 27.7 (27.0-32.0) pg MCHC 32.9 (31.0-37.0) g/dL RDW Std Deviation 49.3 (28.0-62.0) fl RDW Coeff of Shaq 16 H (11.0-15.0) % Plt Count 403 H (150-400) K/uL MPV 9.20 (7.40-12.00) fL Neut % (Auto) 69.0 (48.0-80.0) % Lymph % (Auto) 19.9 (16.0-40.0) % Jerauld % (Auto) 10.4 (0.0-15.0) % Eos % (Auto) 0.4 (0.0-7.0) % Baso % (Auto) 0.3 (0.0-1.5) % Neut # (Auto) 4.8 (1.4-5.7) K/uL Lymph # (Auto) 1.4 (0.6-2.4) K/uL Jerauld # (Auto) 0.7 (0.0-0.8) K/uL Eos # (Auto) 0.0 (0.0-0.7) K/uL Baso # (Auto) 0.0 (0.0-0.1) K/uL Nucleated RBC % 0.0 /100WBC Nucleated RBCs # 0 K/uL Sodium 137 (136-145) mmol/L Potassium 3.5 (3.5-5.1) mmol/L Chloride 102 (98-107) mmol/L Carbon Dioxide 26.4 (21.0-32.0) mmol/L BUN 2 L (7.0-18.0) mg/dL Creatinine 0.4 L (0.6-1.0) mg/dL Est Cr Clr Drug Dosing 134.58 mL/min Estimated GFR (MDRD) > 60.0 ml/min Glucose 121 H (74-106) mg/dL POC Glucose (60-110) mg/dL Calcium 8.5 (8.5-10.1) mg/dL Med Orders - Current: Current Medications Enoxaparin Sodium (Lovenox) 40 mg SUBCUT Q24H [facility] Last Admin: 10/27/19 13:09 Dose: 40 mg Ciprofloxacin/Dextrose 400 mg/ (Premix) 200 mls @ 200 mls/hr IV Q12H [facility] Last Admin: 10/28/19 01:52 Dose: 200 mls/hr Metronidazole 500 mg/ Premix 100 mls @ 100 mls/hr IV Q6H [facility] Last Admin: 10/28/19 03:09 Dose: 100 mls/hr Potassium Chloride/Dextrose/Sod Cl (D5 1/2 Ns W/ 20 Meq/L Kcl) 1,000 mls @ 125 mls/hr IV ASDIRECTED [facility] Last Admin: 10/27/19 08:56 Dose: 125 mls/hr Pantoprazole Sodium 40 mg/ (Sodium Chloride) 10 mls @ 300 mls/hr IV Q12H [facility] Last Admin: 10/27/19 21:44 Dose: 300 mls/hr Potassium Chloride/Dextrose/Sod Cl (D5 1/2 Ns W/ 40 Meq/L Kcl) 1,000 mls @ 125 mls/hr IV ASDIRECTED [facility] Last Admin: 10/28/19 00:26 Dose: 125 mls/hr Lorazepam (Ativan) 1 mg IVPUSH Q4H PRN PRN Reason: Agitation Last Admin: 10/28/19 06:24 Dose: 1 mg Morphine Sulfate (Morphine) 2 mg IVPUSH Q2H PRN PRN Reason: Pain Last Admin: 10/28/19 06:21 Dose: 2 mg Ondansetron HCl (Zofran) 4 mg IVPUSH Q4H PRN PRN Reason: Nausea Last Admin: 10/27/19 19:48 Dose: 4 mg Sodium Chloride (Saline Flush) 10 ml FLUSH ASDIRECTED PRN PRN Reason: Keep Vein Open Sodium Chloride (Saline Flush) 2.5 ml FLUSH ASDIRECTED PRN PRN Reason: Keep Vein Open Discontinued Medications Dextrose/Water (Dextrose 50% In Water) 25 ml IVPUSH ONETIME ONE Stop: 10/26/19 08:02 Last Admin: 10/26/19 08:55 Dose: 25 ml Sodium Chloride (Normal Saline) 1,000 mls @ 125 mls/hr IV ASDIRECTED [facility] Last Infusion: 10/25/19 20:30 Dose: 125 mls/hr Sodium Chloride (Normal Saline) 1,000 mls @ 125 mls/hr IV ASDIRECTED [facility] Last Admin: 10/26/19 01:00 Dose: 125 mls/hr Iopamidol (Isovue-370 (76%)) 100 ml IVPUSH ONETIME STA Stop: 10/25/19 21:19 Last Admin: 10/26/19 00:35 Dose: 100 ml Morphine Sulfate (Morphine) 4 mg IVPUSH ONETIME ONE Stop: 10/25/19 19:34 Last Admin: 10/25/19 19:57 Dose: 4 mg Morphine Sulfate (Morphine) 2 mg IVPUSH ONETIME ONE Stop: 10/25/19 22:40 Last Admin: 10/25/19 22:47 Dose: 2 mg Ondansetron HCl (Zofran) 4 mg IVPUSH ONETIME ONE Stop: 10/25/19 19:34 Last Admin: 10/25/19 19:54 Dose: 4 mg - Exam General: Alert, Oriented, Cooperative Lungs: Clear to Auscultation, Normal Respiratory Effort Cardiovascular: Regular Rate, Regular Rhythm GI/Abdominal Exam: Normal Bowel Sounds, Soft, Tender. No: No Distention Extremities: No Pedal Edema Skin: Warm, Dry, Intact Neurological: No New Focal Deficit Psy/Mental Status: Alert, Normal Affect, Normal Mood Sepsis Event Note - Evaluation Sepsis Screening Result: No Definite Risk - Focused Exam Vital Signs: Vital Signs Temp Pulse Resp BP Pulse Ox 10/28/19 04:00 98.6 F 79 17 147/73 H 94 L 10/28/19 00:00 99.3 F 79 20 143/76 H 94 L Date Exam was Performed: 10/28/19 Time Exam was Performed: 11:00 - Problem List Review Problem List Initiated/Reviewed/Updated: Yes - My Orders Last 24 Hours: My Active Orders 10/27/19 12:00 D5 1/2 NS w/ 40 mEq/L KCl 1,000 ml IV ASDIRECTED - Plan Plan:: This 58 year old female admitted with SBO/ post op ileus. 1. SBO/Postop-ileus- patient feels more distended and more pain- will get abdominal x-ray. If x-ray doesn't show worsening obstruction, clamp NG, try clear liquids, and give stool softener. If x-ray worsening then consider transfer. Passing gas but not stool. Continue IVF D5 1/2 NS with 40 KCL due to episodes of hypoglycemia. Keep potassium above 4.0. Monitor magnesium. Pain medications PRN, try to limit. Encourage ambulation. Dr Nance consulted and recommended conservative management, if situation should arise that she would need surgical intervention, transfer to higher level of care. Gallbladder shows possible inflammatory changes, could be due to not eating. Will continue with Flagyl and Cipro for now. Monitor for signs of blood in NG. Continue IV PPI. 2. COPD: Stable, PRN oxygen at home with exertion. VTE prophylaxis: Lovenox <Gabriele Faulkner - Last Filed: 10/30/19 14:42> - Patient Data Vitals - Most Recent: Last Vital Signs Temp 36.6 C 10/30/19 12:58 Pulse 82 10/30/19 12:58 Resp 16 10/30/19 12:58 BP 128/76 10/30/19 12:58 Pulse Ox 92 L 10/30/19 12:58 I&O - Last 24 Hours: Intake & Output 10/29/19 10/30/19 10/30/19 22:59 06:59 14:59 Intake Total 1110 610 Output Total 1600 2000 Balance -490 -1390 Lab Results Last 24 Hours: Laboratory Results - last 24 hr 10/29/19 10/30/19 10/30/19 Range/Units 18:13 06:15 06:15 WBC 6.06 (4.0-11.0) K/uL RBC 4.06 L (4.30-5.90) M/uL Hgb 11.5 L (12.0-16.0) g/dL Hct 34.8 L (36.0-46.0) % MCV 85.7 (80.0-98.0) fL MCH 28.3 (27.0-32.0) pg MCHC 33.0 (31.0-37.0) g/dL RDW Std Deviation 51.9 (28.0-62.0) fl RDW Coeff of Shaq 17 H (11.0-15.0) % Plt Count 352 (150-400) K/uL MPV 9.50 (7.40-12.00) fL Neut % (Auto) 63.0 (48.0-80.0) % Lymph % (Auto) 23.4 (16.0-40.0) % Jerauld % (Auto) 11.1 (0.0-15.0) % Eos % (Auto) 2.0 (0.0-7.0) % Baso % (Auto) 0.5 (0.0-1.5) % Neut # (Auto) 3.8 (1.4-5.7) K/uL Lymph # (Auto) 1.4 (0.6-2.4) K/uL Jerauld # (Auto) 0.7 (0.0-0.8) K/uL Eos # (Auto) 0.1 (0.0-0.7) K/uL Baso # (Auto) 0.0 (0.0-0.1) K/uL Nucleated RBC % 0.0 /100WBC Nucleated RBCs # 0 K/uL Sodium 138 (136-145) mmol/L Potassium 3.1 L (3.5-5.1) mmol/L Chloride 104 (98-107) mmol/L Carbon Dioxide 28.0 (21.0-32.0) mmol/L BUN 3 L (7.0-18.0) mg/dL Creatinine 0.5 L (0.6-1.0) mg/dL Est Cr Clr Drug Dosing 107.67 mL/min Estimated GFR (MDRD) > 60.0 ml/min Glucose 99 (74-106) mg/dL POC Glucose 83 (60-110) mg/dL Calcium 8.1 L (8.5-10.1) mg/dL Magnesium 1.9 (1.8-2.4) mg/dL 10/30/19 10/30/19 Range/Units 06:22 12:07 WBC (4.0-11.0) K/uL RBC (4.30-5.90) M/uL Hgb (12.0-16.0) g/dL Hct (36.0-46.0) % MCV (80.0-98.0) fL MCH (27.0-32.0) pg MCHC (31.0-37.0) g/dL RDW Std Deviation (28.0-62.0) fl RDW Coeff of Shaq (11.0-15.0) % Plt Count (150-400) K/uL MPV (7.40-12.00) fL Neut % (Auto) (48.0-80.0) % Lymph % (Auto) (16.0-40.0) % Jerauld % (Auto) (0.0-15.0) % Eos % (Auto) (0.0-7.0) % Baso % (Auto) (0.0-1.5) % Neut # (Auto) (1.4-5.7) K/uL Lymph # (Auto) (0.6-2.4) K/uL Jerauld # (Auto) (0.0-0.8) K/uL Eos # (Auto) (0.0-0.7) K/uL Baso # (Auto) (0.0-0.1) K/uL Nucleated RBC % /100WBC Nucleated RBCs # K/uL Sodium (136-145) mmol/L Potassium (3.5-5.1) mmol/L Chloride (98-107) mmol/L Carbon Dioxide (21.0-32.0) mmol/L BUN (7.0-18.0) mg/dL Creatinine (0.6-1.0) mg/dL Est Cr Clr Drug Dosing mL/min Estimated GFR (MDRD) ml/min Glucose (74-106) mg/dL POC Glucose 85 93 (60-110) mg/dL Calcium (8.5-10.1) mg/dL Magnesium (1.8-2.4) mg/dL Med Orders - Current: Current Medications Alprazolam (Xanax) 2 mg PO TID PRN PRN Reason: Anxiety Buspirone HCl (Buspar) 15 mg PO BID [facility] Last Admin: 10/30/19 09:35 Dose: 15 mg Docusate Sodium (Colace) 100 mg PO BID PRN PRN Reason: Constipation Last Admin: 10/30/19 12:58 Dose: 100 mg Enoxaparin Sodium (Lovenox) 40 mg SUBCUT Q24H [facility] Last Admin: 10/30/19 12:57 Dose: 40 mg Ciprofloxacin/Dextrose 400 mg/ (Premix) 200 mls @ 200 mls/hr IV Q12H [facility] Last Admin: 10/30/19 13:04 Dose: 200 mls/hr Metronidazole 500 mg/ Premix 100 mls @ 100 mls/hr IV Q6H [facility] Last Admin: 10/30/19 10:00 Dose: 100 mls/hr Pantoprazole Sodium 40 mg/ (Sodium Chloride) 10 mls @ 300 mls/hr IV Q12H [facility] Last Admin: 10/30/19 09:41 Dose: 300 mls/hr Lactated Ringer's (Ringers, Lactated) 1,000 mls @ 100 mls/hr IV ASDIRECTED [facility] Last Admin: 10/30/19 11:23 Dose: 100 mls/hr Magnesium Hydroxide (Milk Of Magnesia) 30 ml PO DAILY [facility] Last Admin: 10/30/19 09:35 Dose: 30 ml Morphine Sulfate (Morphine) 2 mg IVPUSH Q6H PRN PRN Reason: Pain Ondansetron HCl (Zofran) 4 mg IVPUSH Q4H PRN PRN Reason: Nausea Last Admin: 10/27/19 19:48 Dose: 4 mg Oxycodone HCl (Oxycodone) 5 mg PO Q6H PRN PRN Reason: Abdominal Pain Rosuvastatin Calcium (Crestor) 5 mg PO BEDTIME [facility] Sodium Chloride (Saline Flush) 10 ml FLUSH ASDIRECTED PRN PRN Reason: Keep Vein Open Sodium Chloride (Saline Flush) 2.5 ml FLUSH ASDIRECTED PRN PRN Reason: Keep Vein Open Discontinued Medications Dextrose/Water (Dextrose 50% In Water) 25 ml IVPUSH ONETIME ONE Stop: 10/26/19 08:02 Last Admin: 10/26/19 08:55 Dose: 25 ml Docusate Sodium (Colace 50 Mg/5 Ml Liquid) 50 mg PO DAILY [facility] Last Admin: 10/28/19 12:03 Dose: 50 mg Docusate Sodium (Colace) 100 mg PO DAILY [facility] Docusate Sodium (Colace) 100 mg PO BID [facility] Last Admin: 10/28/19 21:08 Dose: 100 mg Sodium Chloride (Normal Saline) 1,000 mls @ 125 mls/hr IV ASDIRECTED [facility] Last Infusion: 10/25/19 20:30 Dose: 125 mls/hr Sodium Chloride (Normal Saline) 1,000 mls @ 125 mls/hr IV ASDIRECTED [facility] Last Admin: 10/26/19 01:00 Dose: 125 mls/hr Potassium Chloride/Dextrose/Sod Cl (D5 1/2 Ns W/ 20 Meq/L Kcl) 1,000 mls @ 125 mls/hr IV ASDIRECTED [facility] Last Admin: 10/27/19 08:56 Dose: 125 mls/hr Potassium Chloride/Dextrose/Sod Cl (D5 1/2 Ns W/ 40 Meq/L Kcl) 1,000 mls @ 125 mls/hr IV ASDIRECTED [facility] Last Admin: 10/28/19 00:26 Dose: 125 mls/hr Metronidazole (Flagyl 500 Mg In Ns 100 Ml) Confirm Administered Dose 100 mls @ as directed .ROUTE .STK-MED ONE Stop: 10/30/19 09:10 Last Admin: 10/30/19 09:57 Dose: Not Given Iopamidol (Isovue-370 (76%)) 100 ml IVPUSH ONETIME STA Stop: 10/25/19 21:19 Last Admin: 10/26/19 00:35 Dose: 100 ml Lorazepam (Ativan) 1 mg IVPUSH Q4H PRN PRN Reason: Agitation Last Admin: 10/28/19 16:21 Dose: 1 mg Magnesium Hydroxide (Milk Of Magnesia) 30 ml PO ONETIME ONE Stop: 10/28/19 11:15 Last Admin: 10/28/19 12:02 Dose: 30 ml Morphine Sulfate (Morphine) 4 mg IVPUSH ONETIME ONE Stop: 10/25/19 19:34 Last Admin: 10/25/19 19:57 Dose: 4 mg Morphine Sulfate (Morphine) 2 mg IVPUSH ONETIME ONE Stop: 10/25/19 22:40 Last Admin: 10/25/19 22:47 Dose: 2 mg Morphine Sulfate (Morphine) 2 mg IVPUSH Q2H PRN PRN Reason: Pain Last Admin: 10/30/19 09:36 Dose: 2 mg Ondansetron HCl (Zofran) 4 mg IVPUSH ONETIME ONE Stop: 10/25/19 19:34 Last Admin: 10/25/19 19:54 Dose: 4 mg Alprazolam [Xanax] 2 (Mg) 1 each PO TID PRN PRN Reason: Anxiety Potassium Chloride (Potassium Chloride Solution) 20 meq PO ONETIME ONE Stop: 10/29/19 10:35 Last Admin: 10/29/19 12:00 Dose: Not Given Potassium Chloride (Potassium Chloride) 20 meq PO ONETIME ONE Stop: 10/29/19 11:46 Last Admin: 10/29/19 11:51 Dose: 20 meq Potassium Chloride (Potassium Chloride) 40 meq PO ONETIME ONE Stop: 10/30/19 09:59 Last Admin: 10/30/19 11:18 Dose: 40 meq Sepsis Event Note - Focused Exam Vital Signs: Vital Signs Temp Pulse Resp BP BP Pulse Ox 10/30/19 12:58 36.6 C 82 16 128/76 92 L 10/30/19 07:25 37.1 C 79 20 123/71 94 L 10/30/19 04:04 36.9 C 83 14 130/76 95 Date Exam was Performed: 10/30/19 Time Exam was Performed: 14:42 - Problem List & Annotations (1) Obstruction of intestine SNOMED Code(s): 97888611 Code(s): K56.609 - UNSP INTESTNL OBST, UNSP TO PARTIAL VERSUS COMPLETE OBST Status: Acute Current Visit: Yes Qualifiers: Intestinal obstruction type: unspecified Intestinal obstruction extent: partial Qualified Code(s): K56.600 - Partial intestinal obstruction, unspecified as to cause (2) Dehydration SNOMED Code(s): 81930965 Code(s): E86.0 - DEHYDRATION Status: Acute Current Visit: No (3) Nausea vomiting and diarrhea SNOMED Code(s): 2299964 Code(s): R11.2 - NAUSEA WITH VOMITING, UNSPECIFIED; R19.7 - DIARRHEA, UNSPECIFIED Status: Acute Current Visit: No - My Orders Last 24 Hours: My Active Orders 10/30/19 11:12 NG [Nasogastric Orogastric Tube Removal] [OM.PC] Stat 10/30/19 12:39 oxyCODONE 5 mg PO Q6H PRN 10/30/19 12:40 Morphine 2 mg IVPUSH Q6H PRN 10/30/19 12:41 Docusate Sodium [Colace] 100 mg PO BID PRN 10/30/19 13:34 ALPRAZolam [Xanax] 2 mg PO TID PRN 10/30/19 21:00 Rosuvastatin [Crestor] 5 mg PO BEDTIME 10/30/19 Lunch GI Soft Low Fiber [Soft Diet] [DIET] - Plan Plan:: I have seen and evaluated the patient and agree with the residents note unless specified in my note
[2019-10-28] MEDS: Pantoprazole 40 MG in Sodium Chloride 0.9% 10 ML IV SCH ×2 (10:52→23:12)
--- NOTE | 2019-10-28 11:03 | CR ---
HISTORY: Pain. TECHNIQUE: Supine and upright frontal views of the abdomen. COMPARISON: Abdominal radiograph 10/27/2018. CT abdomen pelvis 10/25/2019. FINDINGS: Gas in nondilated colon. Several mildly to moderately dilated gas-filled loops of small bowel. No free intraperitoneal gas. Surgical staple line in the left lower quadrant. IMPRESSION: Several mildly to moderately dilated loops of small bowel raise possibility of small-bowel obstruction. No pneumoperitoneum. Dictated by Reyes Rajan MD @ Oct 28 2019 10:59AM Signed by Dr. Reyes Rajan @ Oct 28 2019 11:01AM
[2019-10-28] MEDS ORDERED: Magnesium Hydroxide 400 MG/5 ML Susp 30 ML Cup PO ONE (11:14)
[2019-10-28] MEDS ORDERED: Docusate Sodium Liquid 100 MG/10 ML UD Cup PO SCH (11:15)
[2019-10-28] MEDS: Lactated Ringers 1,000 ML IV SCH (12:10)
[2019-10-28] MEDS: Enoxaparin 40 MG/0.4 ML Syringe SUBCUT SCH (14:07)
[2019-10-28] MEDS ORDERED: Docusate Sodium 100 MG Cap PO SCH (21:00)
[2019-10-28] MEDS: busPIRone 5 MG Tab PO SCH ×2 (21:08→23:24)
[2019-10-29] MEDS: Lactated Ringers 1,000 ML IV SCH ×2 (01:42→20:13)
[2019-10-29] MEDS: Ciprofloxacin in D5W 400 MG in Premix Bag 1 BAG IV SCH ×4 (02:00→13:51)
[2019-10-29] MEDS: Morphine 2 MG/ML Syringe IVPUSH PRN ×10 (02:34→22:52)
[2019-10-29] MEDS: metroNIDAZOLE/Normal Saline 500 MG in Premix Bag 1 BAG IV SCH ×4 (05:03→22:50)
[2019-10-29 05:41] LABS: BLOOD UREA NITROGEN,BUN 3 mg/dL (7.0-18.0); CARBON DIOXIDE,CO2 26.7 mmol/L (21.0-32.0); CHLORIDE,CL 102 mmol/L (98-107); GLUCOSE RANDOM 86 mg/dL (74-106); POTASSIUM,K 3.3 mmol/L (3.5-5.1); SODIUM,NA 137 mmol/L (136-145)
[2019-10-29] MEDS ORDERED: Docusate Sodium 100 MG Cap PO SCH (09:00)
[2019-10-29] MEDS: Magnesium Hydroxide 400 MG/5 ML Susp 30 ML Cup PO SCH (09:18)
[2019-10-29] MEDS: busPIRone 5 MG Tab PO SCH ×2 (09:18→20:32)
[2019-10-29] MEDS ORDERED: Potassium Chloride 10% 20 MEQ/15 ML Soln 15 ML UD Cup PO ONE (10:34)
--- NOTE | 2019-10-29 10:35 | PCM.PN ---
<Corinna Martinez - Last Filed: 10/29/19 11:08> - General Info Date of Service: 10/29/19 Subjective Update: Patient reports she tolerated clears well, wants to maybe try something more. Still lot of gas but no bowel movement. [place] like she choked on pills last night with NG still in place. Afebrile. - Review of Systems General: Reports: No Symptoms HEENT: Reports: No Symptoms Pulmonary: Reports: No Symptoms Cardiovascular: Reports: No Symptoms Gastrointestinal: Reports: Abdominal Pain. Denies: Nausea, Vomiting Genitourinary: Reports: No Symptoms Musculoskeletal: Reports: No Symptoms Skin: Reports: No Symptoms Neurological: Reports: No Symptoms Psychiatric: Reports: No Symptoms - Patient Data Vitals - Most Recent: Last Vital Signs Temp 97.8 F 10/29/19 08:00 Pulse 92 10/29/19 08:00 Resp 16 10/29/19 08:00 BP 148/83 H 10/29/19 08:00 Pulse Ox 91 L 10/29/19 08:00 Weight - Most Recent: 57 kg I&O - Last 24 Hours: Intake & Output 10/28/19 10/29/19 10/29/19 22:59 06:59 14:59 Intake Total 420 1891 Output Total 980 1200 Balance -560 691 Lab Results Last 24 Hours: Laboratory Results - last 24 hr 10/28/19 10/28/19 10/28/19 Range/Units 11:43 16:26 20:48 WBC (4.0-11.0) K/uL RBC (4.30-5.90) M/uL Hgb (12.0-16.0) g/dL Hct (36.0-46.0) % MCV (80.0-98.0) fL MCH (27.0-32.0) pg MCHC (31.0-37.0) g/dL RDW Std Deviation (28.0-62.0) fl RDW Coeff of Shaq (11.0-15.0) % Plt Count (150-400) K/uL MPV (7.40-12.00) fL Neut % (Auto) (48.0-80.0) % Lymph % (Auto) (16.0-40.0) % Oliver % (Auto) (0.0-15.0) % Eos % (Auto) (0.0-7.0) % Baso % (Auto) (0.0-1.5) % Neut # (Auto) (1.4-5.7) K/uL Lymph # (Auto) (0.6-2.4) K/uL Oliver # (Auto) (0.0-0.8) K/uL Eos # (Auto) (0.0-0.7) K/uL Baso # (Auto) (0.0-0.1) K/uL Nucleated RBC % /100WBC Nucleated RBCs # K/uL Sodium (136-145) mmol/L Potassium (3.5-5.1) mmol/L Chloride (98-107) mmol/L Carbon Dioxide (21.0-32.0) mmol/L BUN (7.0-18.0) mg/dL Creatinine (0.6-1.0) mg/dL Est Cr Clr Drug Dosing mL/min Estimated GFR (MDRD) ml/min Glucose (74-106) mg/dL POC Glucose 88 87 89 (60-110) mg/dL Calcium (8.5-10.1) mg/dL Magnesium (1.8-2.4) mg/dL 10/28/19 10/29/19 10/29/19 Range/Units 23:42 04:00 05:14 WBC 7.24 (4.0-11.0) K/uL RBC 4.21 L (4.30-5.90) M/uL Hgb 11.7 L (12.0-16.0) g/dL Hct 35.6 L (36.0-46.0) % MCV 84.6 (80.0-98.0) fL MCH 27.8 (27.0-32.0) pg MCHC 32.9 (31.0-37.0) g/dL RDW Std Deviation 50.2 (28.0-62.0) fl RDW Coeff of Shaq 16 H (11.0-15.0) % Plt Count 409 H (150-400) K/uL MPV 9.30 (7.40-12.00) fL Neut % (Auto) 65.1 (48.0-80.0) % Lymph % (Auto) 21.0 (16.0-40.0) % Oliver % (Auto) 12.2 (0.0-15.0) % Eos % (Auto) 1.4 (0.0-7.0) % Baso % (Auto) 0.3 (0.0-1.5) % Neut # (Auto) 4.7 (1.4-5.7) K/uL Lymph # (Auto) 1.5 (0.6-2.4) K/uL Oliver # (Auto) 0.9 H (0.0-0.8) K/uL Eos # (Auto) 0.1 (0.0-0.7) K/uL Baso # (Auto) 0.0 (0.0-0.1) K/uL Nucleated RBC % 0.0 /100WBC Nucleated RBCs # 0 K/uL Sodium (136-145) mmol/L Potassium (3.5-5.1) mmol/L Chloride (98-107) mmol/L Carbon Dioxide (21.0-32.0) mmol/L BUN (7.0-18.0) mg/dL Creatinine (0.6-1.0) mg/dL Est Cr Clr Drug Dosing mL/min Estimated GFR (MDRD) ml/min Glucose (74-106) mg/dL POC Glucose 98 80 (60-110) mg/dL Calcium (8.5-10.1) mg/dL Magnesium (1.8-2.4) mg/dL 10/29/19 10/29/19 Range/Units 05:14 09:02 WBC (4.0-11.0) K/uL RBC (4.30-5.90) M/uL Hgb (12.0-16.0) g/dL Hct (36.0-46.0) % MCV (80.0-98.0) fL MCH (27.0-32.0) pg MCHC (31.0-37.0) g/dL RDW Std Deviation (28.0-62.0) fl RDW Coeff of Shaq (11.0-15.0) % Plt Count (150-400) K/uL MPV (7.40-12.00) fL Neut % (Auto) (48.0-80.0) % Lymph % (Auto) (16.0-40.0) % Oliver % (Auto) (0.0-15.0) % Eos % (Auto) (0.0-7.0) % Baso % (Auto) (0.0-1.5) % Neut # (Auto) (1.4-5.7) K/uL Lymph # (Auto) (0.6-2.4) K/uL Oliver # (Auto) (0.0-0.8) K/uL Eos # (Auto) (0.0-0.7) K/uL Baso # (Auto) (0.0-0.1) K/uL Nucleated RBC % /100WBC Nucleated RBCs # K/uL Sodium 137 (136-145) mmol/L Potassium 3.3 L (3.5-5.1) mmol/L Chloride 102 (98-107) mmol/L Carbon Dioxide 26.7 (21.0-32.0) mmol/L BUN 3 L (7.0-18.0) mg/dL Creatinine 0.4 L (0.6-1.0) mg/dL Est Cr Clr Drug Dosing 134.58 mL/min Estimated GFR (MDRD) > 60.0 ml/min Glucose 86 (74-106) mg/dL POC Glucose 73 (60-110) mg/dL Calcium 8.5 (8.5-10.1) mg/dL Magnesium 1.9 (1.8-2.4) mg/dL Med Orders - Current: Current Medications Buspirone HCl (Buspar) 15 mg PO BID [facility] Last Admin: 10/29/19 09:18 Dose: 15 mg Enoxaparin Sodium (Lovenox) 40 mg SUBCUT Q24H [facility] Last Admin: 10/28/19 14:07 Dose: 40 mg Ciprofloxacin/Dextrose 400 mg/ (Premix) 200 mls @ 200 mls/hr IV Q12H [facility] Last Admin: 10/29/19 02:00 Dose: 200 mls/hr Metronidazole 500 mg/ Premix 100 mls @ 100 mls/hr IV Q6H [facility] Last Admin: 10/29/19 09:44 Dose: 100 mls/hr Pantoprazole Sodium 40 mg/ (Sodium Chloride) 10 mls @ 300 mls/hr IV Q12H [facility] Last Admin: 10/28/19 23:12 Dose: 300 mls/hr Lactated Ringer's (Ringers, Lactated) 1,000 mls @ 100 mls/hr IV ASDIRECTED [facility] Last Admin: 10/29/19 01:42 Dose: 100 mls/hr Lorazepam (Ativan) 1 mg IVPUSH Q4H PRN PRN Reason: Agitation Last Admin: 10/28/19 16:21 Dose: 1 mg Magnesium Hydroxide (Milk Of Magnesia) 30 ml PO DAILY [facility] Last Admin: 10/29/19 09:18 Dose: 30 ml Morphine Sulfate (Morphine) 2 mg IVPUSH Q2H PRN PRN Reason: Pain Last Admin: 10/29/19 09:41 Dose: 2 mg Ondansetron HCl (Zofran) 4 mg IVPUSH Q4H PRN PRN Reason: Nausea Last Admin: 10/27/19 19:48 Dose: 4 mg Sodium Chloride (Saline Flush) 10 ml FLUSH ASDIRECTED PRN PRN Reason: Keep Vein Open Sodium Chloride (Saline Flush) 2.5 ml FLUSH ASDIRECTED PRN PRN Reason: Keep Vein Open Discontinued Medications Dextrose/Water (Dextrose 50% In Water) 25 ml IVPUSH ONETIME ONE Stop: 10/26/19 08:02 Last Admin: 10/26/19 08:55 Dose: 25 ml Docusate Sodium (Colace 50 Mg/5 Ml Liquid) 50 mg PO DAILY [facility] Last Admin: 10/28/19 12:03 Dose: 50 mg Docusate Sodium (Colace) 100 mg PO DAILY [facility] Docusate Sodium (Colace) 100 mg PO BID [facility] Last Admin: 10/28/19 21:08 Dose: 100 mg Sodium Chloride (Normal Saline) 1,000 mls @ 125 mls/hr IV ASDIRECTED [facility] Last Infusion: 10/25/19 20:30 Dose: 125 mls/hr Sodium Chloride (Normal Saline) 1,000 mls @ 125 mls/hr IV ASDIRECTED [facility] Last Admin: 10/26/19 01:00 Dose: 125 mls/hr Potassium Chloride/Dextrose/Sod Cl (D5 1/2 Ns W/ 20 Meq/L Kcl) 1,000 mls @ 125 mls/hr IV ASDIRECTED [facility] Last Admin: 10/27/19 08:56 Dose: 125 mls/hr Potassium Chloride/Dextrose/Sod Cl (D5 1/2 Ns W/ 40 Meq/L Kcl) 1,000 mls @ 125 mls/hr IV ASDIRECTED [facility] Last Admin: 10/28/19 00:26 Dose: 125 mls/hr Iopamidol (Isovue-370 (76%)) 100 ml IVPUSH ONETIME STA Stop: 10/25/19 21:19 Last Admin: 10/26/19 00:35 Dose: 100 ml Magnesium Hydroxide (Milk Of Magnesia) 30 ml PO ONETIME ONE Stop: 10/28/19 11:15 Last Admin: 10/28/19 12:02 Dose: 30 ml Morphine Sulfate (Morphine) 4 mg IVPUSH ONETIME ONE Stop: 10/25/19 19:34 Last Admin: 10/25/19 19:57 Dose: 4 mg Morphine Sulfate (Morphine) 2 mg IVPUSH ONETIME ONE Stop: 10/25/19 22:40 Last Admin: 10/25/19 22:47 Dose: 2 mg Ondansetron HCl (Zofran) 4 mg IVPUSH ONETIME ONE Stop: 10/25/19 19:34 Last Admin: 10/25/19 19:54 Dose: 4 mg - Exam General: Alert, Oriented, Cooperative Lungs: Clear to Auscultation, Normal Respiratory Effort Cardiovascular: Regular Rate, Regular Rhythm GI/Abdominal Exam: Normal Bowel Sounds, Soft, Tender. No: Guarding, Rigid, Rebound Extremities: No Pedal Edema Skin: Warm, Dry Neurological: No New Focal Deficit Psy/Mental Status: Alert, Normal Affect, Normal Mood Sepsis Event Note - Evaluation Sepsis Screening Result: No Definite Risk - Focused Exam Vital Signs: Vital Signs Temp Pulse Resp BP BP Pulse Ox 10/29/19 08:00 97.8 F 92 16 148/83 H 91 L 10/29/19 04:00 98.2 F 82 17 126/70 93 L 10/29/19 00:00 98.2 F 84 16 143/81 H 94 L Date Exam was Performed: 10/29/19 Time Exam was Performed: 11:08 - Problem List Review Problem List Initiated/Reviewed/Updated: Yes - My Orders Last 24 Hours: My Active Orders 10/28/19 11:17 Communication Order [RC] PER UNIT ROUTINE 10/28/19 11:30 Lactated Ringers [Ringers, Lactated] 1,000 ml IV ASDIRECTED 10/28/19 Dinner Clear Liquid Diet [DIET] 10/29/19 09:00 Magnesium Hydroxide [Milk of Magnesia] 30 ml PO DAILY 10/29/19 10:34 Potassium Chloride [Potassium Chloride Solution] 20 meq PO ONETIME ONE 10/30/19 05:11 BASIC METABOLIC PANEL,BMP [CHEM] AM CBC WITH AUTO DIFF [HEME] AM MAGNESIUM [CHEM] AM 10/31/19 05:11 BASIC METABOLIC PANEL,BMP [CHEM] AM CBC WITH AUTO DIFF [HEME] AM MAGNESIUM [CHEM] AM - Plan Plan:: This 58 year old female admitted with SBO/ post op ileus. 1. SBO/Postop-ileus- if patient still tolerating clears today, will advance to soft and pull NG. Passing gas but not stool. Continue milk of mag. Continue IVF D5 1/2 NS with 40 KCL due to episodes of hypoglycemia. Keep potassium above 4.0. Monitor magnesium. If tolerating soft diet will try to transition to oral pain medications.. Encourage ambulation. Dr Nance consulted and recommended conservative management, if situation should arise that she would need surgical intervention, transfer to higher level of care. Gallbladder shows possible inflammatory changes, could be due to not eating. Will continue with Flagyl and Cipro for now. Continue IV PPI. 2. COPD: Stable, PRN oxygen at home with exertion. VTE prophylaxis: Lovenox <Gabriele Faulkner - Last Filed: 10/30/19 14:42> - Patient Data Vitals - Most Recent: Last Vital Signs Temp 36.6 C 10/30/19 12:58 Pulse 82 10/30/19 12:58 Resp 16 10/30/19 12:58 BP 128/76 10/30/19 12:58 Pulse Ox 92 L 10/30/19 12:58 I&O - Last 24 Hours: Intake & Output 10/29/19 10/30/19 10/30/19 22:59 06:59 14:59 Intake Total 1110 610 Output Total 1600 2000 Balance -490 -1390 Lab Results Last 24 Hours: Laboratory Results - last 24 hr 10/29/19 10/30/19 10/30/19 Range/Units 18:13 06:15 06:15 WBC 6.06 (4.0-11.0) K/uL RBC 4.06 L (4.30-5.90) M/uL Hgb 11.5 L (12.0-16.0) g/dL Hct 34.8 L (36.0-46.0) % MCV 85.7 (80.0-98.0) fL MCH 28.3 (27.0-32.0) pg MCHC 33.0 (31.0-37.0) g/dL RDW Std Deviation 51.9 (28.0-62.0) fl RDW Coeff of Shaq 17 H (11.0-15.0) % Plt Count 352 (150-400) K/uL MPV 9.50 (7.40-12.00) fL Neut % (Auto) 63.0 (48.0-80.0) % Lymph % (Auto) 23.4 (16.0-40.0) % Oliver % (Auto) 11.1 (0.0-15.0) % Eos % (Auto) 2.0 (0.0-7.0) % Baso % (Auto) 0.5 (0.0-1.5) % Neut # (Auto) 3.8 (1.4-5.7) K/uL Lymph # (Auto) 1.4 (0.6-2.4) K/uL Oliver # (Auto) 0.7 (0.0-0.8) K/uL Eos # (Auto) 0.1 (0.0-0.7) K/uL Baso # (Auto) 0.0 (0.0-0.1) K/uL Nucleated RBC % 0.0 /100WBC Nucleated RBCs # 0 K/uL Sodium 138 (136-145) mmol/L Potassium 3.1 L (3.5-5.1) mmol/L Chloride 104 (98-107) mmol/L Carbon Dioxide 28.0 (21.0-32.0) mmol/L BUN 3 L (7.0-18.0) mg/dL Creatinine 0.5 L (0.6-1.0) mg/dL Est Cr Clr Drug Dosing 107.67 mL/min Estimated GFR (MDRD) > 60.0 ml/min Glucose 99 (74-106) mg/dL POC Glucose 83 (60-110) mg/dL Calcium 8.1 L (8.5-10.1) mg/dL Magnesium 1.9 (1.8-2.4) mg/dL 10/30/19 10/30/19 Range/Units 06:22 12:07 WBC (4.0-11.0) K/uL RBC (4.30-5.90) M/uL Hgb (12.0-16.0) g/dL Hct (36.0-46.0) % MCV (80.0-98.0) fL MCH (27.0-32.0) pg MCHC (31.0-37.0) g/dL RDW Std Deviation (28.0-62.0) fl RDW Coeff of Shaq (11.0-15.0) % Plt Count (150-400) K/uL MPV (7.40-12.00) fL Neut % (Auto) (48.0-80.0) % Lymph % (Auto) (16.0-40.0) % Oliver % (Auto) (0.0-15.0) % Eos % (Auto) (0.0-7.0) % Baso % (Auto) (0.0-1.5) % Neut # (Auto) (1.4-5.7) K/uL Lymph # (Auto) (0.6-2.4) K/uL Oliver # (Auto) (0.0-0.8) K/uL Eos # (Auto) (0.0-0.7) K/uL Baso # (Auto) (0.0-0.1) K/uL Nucleated RBC % /100WBC Nucleated RBCs # K/uL Sodium (136-145) mmol/L Potassium (3.5-5.1) mmol/L Chloride (98-107) mmol/L Carbon Dioxide (21.0-32.0) mmol/L BUN (7.0-18.0) mg/dL Creatinine (0.6-1.0) mg/dL Est Cr Clr Drug Dosing mL/min Estimated GFR (MDRD) ml/min Glucose (74-106) mg/dL POC Glucose 85 93 (60-110) mg/dL Calcium (8.5-10.1) mg/dL Magnesium (1.8-2.4) mg/dL Med Orders - Current: Current Medications Alprazolam (Xanax) 2 mg PO TID PRN PRN Reason: Anxiety Buspirone HCl (Buspar) 15 mg PO BID [facility] Last Admin: 10/30/19 09:35 Dose: 15 mg Docusate Sodium (Colace) 100 mg PO BID PRN PRN Reason: Constipation Last Admin: 10/30/19 12:58 Dose: 100 mg Enoxaparin Sodium (Lovenox) 40 mg SUBCUT Q24H [facility] Last Admin: 10/30/19 12:57 Dose: 40 mg Ciprofloxacin/Dextrose 400 mg/ (Premix) 200 mls @ 200 mls/hr IV Q12H [facility] Last Admin: 10/30/19 13:04 Dose: 200 mls/hr Metronidazole 500 mg/ Premix 100 mls @ 100 mls/hr IV Q6H [facility] Last Admin: 10/30/19 10:00 Dose: 100 mls/hr Pantoprazole Sodium 40 mg/ (Sodium Chloride) 10 mls @ 300 mls/hr IV Q12H [facility] Last Admin: 10/30/19 09:41 Dose: 300 mls/hr Lactated Ringer's (Ringers, Lactated) 1,000 mls @ 100 mls/hr IV ASDIRECTED [facility] Last Admin: 10/30/19 11:23 Dose: 100 mls/hr Magnesium Hydroxide (Milk Of Magnesia) 30 ml PO DAILY [facility] Last Admin: 10/30/19 09:35 Dose: 30 ml Morphine Sulfate (Morphine) 2 mg IVPUSH Q6H PRN PRN Reason: Pain Ondansetron HCl (Zofran) 4 mg IVPUSH Q4H PRN PRN Reason: Nausea Last Admin: 10/27/19 19:48 Dose: 4 mg Oxycodone HCl (Oxycodone) 5 mg PO Q6H PRN PRN Reason: Abdominal Pain Rosuvastatin Calcium (Crestor) 5 mg PO BEDTIME [facility] Sodium Chloride (Saline Flush) 10 ml FLUSH ASDIRECTED PRN PRN Reason: Keep Vein Open Sodium Chloride (Saline Flush) 2.5 ml FLUSH ASDIRECTED PRN PRN Reason: Keep Vein Open Discontinued Medications Dextrose/Water (Dextrose 50% In Water) 25 ml IVPUSH ONETIME ONE Stop: 10/26/19 08:02 Last Admin: 10/26/19 08:55 Dose: 25 ml Docusate Sodium (Colace 50 Mg/5 Ml Liquid) 50 mg PO DAILY [facility] Last Admin: 10/28/19 12:03 Dose: 50 mg Docusate Sodium (Colace) 100 mg PO DAILY [facility] Docusate Sodium (Colace) 100 mg PO BID [facility] Last Admin: 10/28/19 21:08 Dose: 100 mg Sodium Chloride (Normal Saline) 1,000 mls @ 125 mls/hr IV ASDIRECTED [facility] Last Infusion: 10/25/19 20:30 Dose: 125 mls/hr Sodium Chloride (Normal Saline) 1,000 mls @ 125 mls/hr IV ASDIRECTED [facility] Last Admin: 10/26/19 01:00 Dose: 125 mls/hr Potassium Chloride/Dextrose/Sod Cl (D5 1/2 Ns W/ 20 Meq/L Kcl) 1,000 mls @ 125 mls/hr IV ASDIRECTED [facility] Last Admin: 10/27/19 08:56 Dose: 125 mls/hr Potassium Chloride/Dextrose/Sod Cl (D5 1/2 Ns W/ 40 Meq/L Kcl) 1,000 mls @ 125 mls/hr IV ASDIRECTED [facility] Last Admin: 10/28/19 00:26 Dose: 125 mls/hr Metronidazole (Flagyl 500 Mg In Ns 100 Ml) Confirm Administered Dose 100 mls @ as directed .ROUTE .STK-MED ONE Stop: 10/30/19 09:10 Last Admin: 10/30/19 09:57 Dose: Not Given Iopamidol (Isovue-370 (76%)) 100 ml IVPUSH ONETIME STA Stop: 10/25/19 21:19 Last Admin: 10/26/19 00:35 Dose: 100 ml Lorazepam (Ativan) 1 mg IVPUSH Q4H PRN PRN Reason: Agitation Last Admin: 10/28/19 16:21 Dose: 1 mg Magnesium Hydroxide (Milk Of Magnesia) 30 ml PO ONETIME ONE Stop: 10/28/19 11:15 Last Admin: 10/28/19 12:02 Dose: 30 ml Morphine Sulfate (Morphine) 4 mg IVPUSH ONETIME ONE Stop: 10/25/19 19:34 Last Admin: 10/25/19 19:57 Dose: 4 mg Morphine Sulfate (Morphine) 2 mg IVPUSH ONETIME ONE Stop: 10/25/19 22:40 Last Admin: 10/25/19 22:47 Dose: 2 mg Morphine Sulfate (Morphine) 2 mg IVPUSH Q2H PRN PRN Reason: Pain Last Admin: 10/30/19 09:36 Dose: 2 mg Ondansetron HCl (Zofran) 4 mg IVPUSH ONETIME ONE Stop: 10/25/19 19:34 Last Admin: 10/25/19 19:54 Dose: 4 mg Alprazolam [Xanax] 2 (Mg) 1 each PO TID PRN PRN Reason: Anxiety Potassium Chloride (Potassium Chloride Solution) 20 meq PO ONETIME ONE Stop: 10/29/19 10:35 Last Admin: 10/29/19 12:00 Dose: Not Given Potassium Chloride (Potassium Chloride) 20 meq PO ONETIME ONE Stop: 10/29/19 11:46 Last Admin: 10/29/19 11:51 Dose: 20 meq Potassium Chloride (Potassium Chloride) 40 meq PO ONETIME ONE Stop: 10/30/19 09:59 Last Admin: 10/30/19 11:18 Dose: 40 meq Sepsis Event Note - Focused Exam Vital Signs: Vital Signs Temp Pulse Resp BP BP Pulse Ox 10/30/19 12:58 36.6 C 82 16 128/76 92 L 10/30/19 07:25 37.1 C 79 20 123/71 94 L 10/30/19 04:04 36.9 C 83 14 130/76 95 Date Exam was Performed: 10/30/19 Time Exam was Performed: 14:42 - Problem List & Annotations (1) Obstruction of intestine SNOMED Code(s): 93813866 Code(s): K56.609 - UNSP INTESTNL OBST, UNSP TO PARTIAL VERSUS COMPLETE OBST Status: Acute Current Visit: Yes Qualifiers: Intestinal obstruction type: unspecified Intestinal obstruction extent: partial Qualified Code(s): K56.600 - Partial intestinal obstruction, unspecified as to cause (2) Dehydration SNOMED Code(s): 15106261 Code(s): E86.0 - DEHYDRATION Status: Acute Current Visit: No (3) Nausea vomiting and diarrhea SNOMED Code(s): 4803154 Code(s): R11.2 - NAUSEA WITH VOMITING, UNSPECIFIED; R19.7 - DIARRHEA, UNSPECIFIED Status: Acute Current Visit: No - My Orders Last 24 Hours: My Active Orders 10/30/19 11:12 NG [Nasogastric Orogastric Tube Removal] [OM.PC] Stat 10/30/19 12:39 oxyCODONE 5 mg PO Q6H PRN 10/30/19 12:40 Morphine 2 mg IVPUSH Q6H PRN 10/30/19 12:41 Docusate Sodium [Colace] 100 mg PO BID PRN 10/30/19 13:34 ALPRAZolam [Xanax] 2 mg PO TID PRN 10/30/19 21:00 Rosuvastatin [Crestor] 5 mg PO BEDTIME 10/30/19 Lunch GI Soft Low Fiber [Soft Diet] [DIET] - Plan Plan:: I have seen and evaluated the patient and agree with the residents note unless specified in my note
[2019-10-29] MEDS ORDERED: Potassium Chloride 10% 20 MEQ/15 ML Soln 30 ML UD Cup PO ONE (11:45)
[2019-10-29] MEDS: Pantoprazole 40 MG in Sodium Chloride 0.9% 10 ML IV SCH ×2 (11:51→22:51)
[2019-10-29] MEDS: Enoxaparin 40 MG/0.4 ML Syringe SUBCUT SCH (13:50)
[2019-10-30] MEDS: Morphine 2 MG/ML Syringe IVPUSH PRN ×4 (01:30→09:36)
[2019-10-30] MEDS: Ciprofloxacin in D5W 400 MG in Premix Bag 1 BAG IV SCH ×4 (02:41→13:04)
[2019-10-30] MEDS: metroNIDAZOLE/Normal Saline 500 MG in Premix Bag 1 BAG IV SCH ×4 (03:49→21:17)
[2019-10-30 06:58] LABS: BLOOD UREA NITROGEN,BUN 3 mg/dL (7.0-18.0); CHLORIDE,CL 104 mmol/L (98-107); GLUCOSE RANDOM 99 mg/dL (74-106); POTASSIUM,K 3.1 mmol/L (3.5-5.1); SODIUM,NA 138 mmol/L (136-145)
[2019-10-30] MEDS ORDERED: metroNIDAZOLE/Normal Saline 0 ML ONE (09:09)
[2019-10-30] MEDS: busPIRone 5 MG Tab PO SCH ×2 (09:35→21:13)
[2019-10-30] MEDS: Magnesium Hydroxide 400 MG/5 ML Susp 30 ML Cup PO SCH (09:35)
[2019-10-30] MEDS: Pantoprazole 40 MG in Sodium Chloride 0.9% 10 ML IV SCH ×2 (09:41→22:54)
[2019-10-30] MEDS ORDERED: Potassium Chloride 10% 20 MEQ/15 ML Soln 30 ML UD Cup PO ONE (09:58)
[2019-10-30] MEDS: Lactated Ringers 1,000 ML IV SCH (11:23)
[2019-10-30] MEDS ORDERED: oxyCODONE 5 MG Tab PO PRN ×2 (12:39→21:01)
[2019-10-30] MEDS ORDERED: ALPRAZOLAM 2 MG PO PRN (12:40)
[2019-10-30] MEDS ORDERED: Morphine 2 MG/ML Syringe IVPUSH PRN ×2 (12:40→20:30)
[2019-10-30] MEDS ORDERED: Docusate Sodium 100 MG Cap PO PRN (12:41)
--- NOTE | 2019-10-30 12:44 | PCM.PN ---
- General Info Date of Service: 10/30/19 Admission Dx/Problem (Free Text): Admission Diagnosis/Problem Admission Diagnosis/Problem Intestinal obstruction Subjective Update: Passing lot of gas but no bowel movement. feels she will pass stools soon. - Review of Systems General: Denies: Fever, Weakness HEENT: Denies: Ear Pain, Eye Pain Pulmonary: Denies: Shortness of Breath, Pleuritic Chest Pain Cardiovascular: Denies: Chest Pain, Palpitations Gastrointestinal: Reports: Abdominal Pain, Constipation, Flatus. Denies: Decreased Appetite, Diarrhea, Hematochezia, Nausea, Vomiting Genitourinary: Denies: Dysuria, Frequency Musculoskeletal: Denies: Neck Pain, Shoulder Pain Skin: Denies: Cyanosis, Jaundice Neurological: Denies: Confusion, Dizziness Psychiatric: Denies: Confusion, Depression - Patient Data Vitals - Most Recent: Last Vital Signs Temp 37.1 C 10/30/19 07:25 Pulse 79 10/30/19 07:25 Resp 20 10/30/19 07:25 BP 123/71 10/30/19 07:25 Pulse Ox 94 L 10/30/19 07:25 Weight - Most Recent: 56.7 kg I&O - Last 24 Hours: Intake & Output 10/29/19 10/30/19 10/30/19 22:59 06:59 14:59 Intake Total 1110 610 Output Total 1600 2000 Balance -490 -1390 Lab Results Last 24 Hours: Laboratory Results - last 24 hr 10/29/19 10/30/19 10/30/19 Range/Units 18:13 06:15 06:15 WBC 6.06 (4.0-11.0) K/uL RBC 4.06 L (4.30-5.90) M/uL Hgb 11.5 L (12.0-16.0) g/dL Hct 34.8 L (36.0-46.0) % MCV 85.7 (80.0-98.0) fL MCH 28.3 (27.0-32.0) pg MCHC 33.0 (31.0-37.0) g/dL RDW Std Deviation 51.9 (28.0-62.0) fl RDW Coeff of Shaq 17 H (11.0-15.0) % Plt Count 352 (150-400) K/uL MPV 9.50 (7.40-12.00) fL Neut % (Auto) 63.0 (48.0-80.0) % Lymph % (Auto) 23.4 (16.0-40.0) % [place] % (Auto) 11.1 (0.0-15.0) % Eos % (Auto) 2.0 (0.0-7.0) % Baso % (Auto) 0.5 (0.0-1.5) % Neut # (Auto) 3.8 (1.4-5.7) K/uL Lymph # (Auto) 1.4 (0.6-2.4) K/uL [place] # (Auto) 0.7 (0.0-0.8) K/uL Eos # (Auto) 0.1 (0.0-0.7) K/uL Baso # (Auto) 0.0 (0.0-0.1) K/uL Nucleated RBC % 0.0 /100WBC Nucleated RBCs # 0 K/uL Sodium 138 (136-145) mmol/L Potassium 3.1 L (3.5-5.1) mmol/L Chloride 104 (98-107) mmol/L Carbon Dioxide 28.0 (21.0-32.0) mmol/L BUN 3 L (7.0-18.0) mg/dL Creatinine 0.5 L (0.6-1.0) mg/dL Est Cr Clr Drug Dosing 107.67 mL/min Estimated GFR (MDRD) > 60.0 ml/min Glucose 99 (74-106) mg/dL POC Glucose 83 (60-110) mg/dL Calcium 8.1 L (8.5-10.1) mg/dL Magnesium 1.9 (1.8-2.4) mg/dL 10/30/19 10/30/19 Range/Units 06:22 12:07 WBC (4.0-11.0) K/uL RBC (4.30-5.90) M/uL Hgb (12.0-16.0) g/dL Hct (36.0-46.0) % MCV (80.0-98.0) fL MCH (27.0-32.0) pg MCHC (31.0-37.0) g/dL RDW Std Deviation (28.0-62.0) fl RDW Coeff of Shaq (11.0-15.0) % Plt Count (150-400) K/uL MPV (7.40-12.00) fL Neut % (Auto) (48.0-80.0) % Lymph % (Auto) (16.0-40.0) % [place] % (Auto) (0.0-15.0) % Eos % (Auto) (0.0-7.0) % Baso % (Auto) (0.0-1.5) % Neut # (Auto) (1.4-5.7) K/uL Lymph # (Auto) (0.6-2.4) K/uL [place] # (Auto) (0.0-0.8) K/uL Eos # (Auto) (0.0-0.7) K/uL Baso # (Auto) (0.0-0.1) K/uL Nucleated RBC % /100WBC Nucleated RBCs # K/uL Sodium (136-145) mmol/L Potassium (3.5-5.1) mmol/L Chloride (98-107) mmol/L Carbon Dioxide (21.0-32.0) mmol/L BUN (7.0-18.0) mg/dL Creatinine (0.6-1.0) mg/dL Est Cr Clr Drug Dosing mL/min Estimated GFR (MDRD) ml/min Glucose (74-106) mg/dL POC Glucose 85 93 (60-110) mg/dL Calcium (8.5-10.1) mg/dL Magnesium (1.8-2.4) mg/dL Med Orders - Current: Current Medications Buspirone HCl (Buspar) 15 mg PO BID [facility] Last Admin: 10/30/19 09:35 Dose: 15 mg Docusate Sodium (Colace) 100 mg PO BID PRN PRN Reason: Constipation Enoxaparin Sodium (Lovenox) 40 mg SUBCUT Q24H [facility] Last Admin: 10/29/19 13:50 Dose: 40 mg Ciprofloxacin/Dextrose 400 mg/ (Premix) 200 mls @ 200 mls/hr IV Q12H [facility] Last Admin: 10/30/19 02:41 Dose: 200 mls/hr Metronidazole 500 mg/ Premix 100 mls @ 100 mls/hr IV Q6H [facility] Last Admin: 10/30/19 10:00 Dose: 100 mls/hr Pantoprazole Sodium 40 mg/ (Sodium Chloride) 10 mls @ 300 mls/hr IV Q12H [facility] Last Admin: 10/30/19 09:41 Dose: 300 mls/hr Lactated Ringer's (Ringers, Lactated) 1,000 mls @ 100 mls/hr IV ASDIRECTED [facility] Last Admin: 10/30/19 11:23 Dose: 100 mls/hr Magnesium Hydroxide (Milk Of Magnesia) 30 ml PO DAILY [facility] Last Admin: 10/30/19 09:35 Dose: 30 ml Morphine Sulfate (Morphine) 2 mg IVPUSH Q6H PRN PRN Reason: Pain Non-Formulary Medication (Alprazolam [Xanax]) 2 mg PO TID PRN PRN Reason: Anxiety Non-Formulary Medication (Rosuvastatin) 5 mg PO BEDTIME [facility] Ondansetron HCl (Zofran) 4 mg IVPUSH Q4H PRN PRN Reason: Nausea Last Admin: 10/27/19 19:48 Dose: 4 mg Oxycodone HCl (Oxycodone) 5 mg PO Q6H PRN PRN Reason: Abdominal Pain Sodium Chloride (Saline Flush) 10 ml FLUSH ASDIRECTED PRN PRN Reason: Keep Vein Open Sodium Chloride (Saline Flush) 2.5 ml FLUSH ASDIRECTED PRN PRN Reason: Keep Vein Open Discontinued Medications Dextrose/Water (Dextrose 50% In Water) 25 ml IVPUSH ONETIME ONE Stop: 10/26/19 08:02 Last Admin: 10/26/19 08:55 Dose: 25 ml Docusate Sodium (Colace 50 Mg/5 Ml Liquid) 50 mg PO DAILY [facility] Last Admin: 10/28/19 12:03 Dose: 50 mg Docusate Sodium (Colace) 100 mg PO DAILY [facility] Docusate Sodium (Colace) 100 mg PO BID [facility] Last Admin: 10/28/19 21:08 Dose: 100 mg Sodium Chloride (Normal Saline) 1,000 mls @ 125 mls/hr IV ASDIRECTED [facility] Last Infusion: 10/25/19 20:30 Dose: 125 mls/hr Sodium Chloride (Normal Saline) 1,000 mls @ 125 mls/hr IV ASDIRECTED [facility] Last Admin: 10/26/19 01:00 Dose: 125 mls/hr Potassium Chloride/Dextrose/Sod Cl (D5 1/2 Ns W/ 20 Meq/L Kcl) 1,000 mls @ 125 mls/hr IV ASDIRECTED [facility] Last Admin: 10/27/19 08:56 Dose: 125 mls/hr Potassium Chloride/Dextrose/Sod Cl (D5 1/2 Ns W/ 40 Meq/L Kcl) 1,000 mls @ 125 mls/hr IV ASDIRECTED [facility] Last Admin: 10/28/19 00:26 Dose: 125 mls/hr Metronidazole (Flagyl 500 Mg In Ns 100 Ml) Confirm Administered Dose 100 mls @ as directed .ROUTE .STK-MED ONE Stop: 10/30/19 09:10 Last Admin: 10/30/19 09:57 Dose: Not Given Iopamidol (Isovue-370 (76%)) 100 ml IVPUSH ONETIME STA Stop: 10/25/19 21:19 Last Admin: 10/26/19 00:35 Dose: 100 ml Lorazepam (Ativan) 1 mg IVPUSH Q4H PRN PRN Reason: Agitation Last Admin: 10/28/19 16:21 Dose: 1 mg Magnesium Hydroxide (Milk Of Magnesia) 30 ml PO ONETIME ONE Stop: 10/28/19 11:15 Last Admin: 10/28/19 12:02 Dose: 30 ml Morphine Sulfate (Morphine) 4 mg IVPUSH ONETIME ONE Stop: 10/25/19 19:34 Last Admin: 10/25/19 19:57 Dose: 4 mg Morphine Sulfate (Morphine) 2 mg IVPUSH ONETIME ONE Stop: 10/25/19 22:40 Last Admin: 10/25/19 22:47 Dose: 2 mg Morphine Sulfate (Morphine) 2 mg IVPUSH Q2H PRN PRN Reason: Pain Last Admin: 10/30/19 09:36 Dose: 2 mg Ondansetron HCl (Zofran) 4 mg IVPUSH ONETIME ONE Stop: 10/25/19 19:34 Last Admin: 10/25/19 19:54 Dose: 4 mg Potassium Chloride (Potassium Chloride Solution) 20 meq PO ONETIME ONE Stop: 10/29/19 10:35 Last Admin: 10/29/19 12:00 Dose: Not Given Potassium Chloride (Potassium Chloride) 20 meq PO ONETIME ONE Stop: 10/29/19 11:46 Last Admin: 10/29/19 11:51 Dose: 20 meq Potassium Chloride (Potassium Chloride) 40 meq PO ONETIME ONE Stop: 10/30/19 09:59 Last Admin: 10/30/19 11:18 Dose: 40 meq - Exam General: Alert, Oriented Neck: Supple, Trachea Midline Lungs: Clear to Auscultation, Normal Respiratory Effort Cardiovascular: Regular Rate, Regular Rhythm GI/Abdominal Exam: Soft, Tender, Abnormal Bowel Sounds Sepsis Event Note - Evaluation Sepsis Screening Result: No Definite Risk - Focused Exam Vital Signs: Vital Signs Temp Pulse Resp BP BP Pulse Ox 10/30/19 07:25 37.1 C 79 20 123/71 94 L 10/30/19 04:04 36.9 C 83 14 130/76 95 Date Exam was Performed: 10/30/19 Time Exam was Performed: 14:39 - Problem List & Annotations (1) Obstruction of intestine SNOMED Code(s): 05945419 Code(s): K56.609 - UNSP INTESTNL OBST, UNSP TO PARTIAL VERSUS COMPLETE OBST Status: Acute Current Visit: Yes Qualifiers: Intestinal obstruction type: unspecified Intestinal obstruction extent: partial Qualified Code(s): K56.600 - Partial intestinal obstruction, unspecified as to cause (2) Dehydration SNOMED Code(s): 59808395 Code(s): E86.0 - DEHYDRATION Status: Acute Current Visit: No (3) Nausea vomiting and diarrhea SNOMED Code(s): 3912985 Code(s): R11.2 - NAUSEA WITH VOMITING, UNSPECIFIED; R19.7 - DIARRHEA, UNSPECIFIED Status: Acute Current Visit: No - Problem List Review Problem List Initiated/Reviewed/Updated: Yes - My Orders Last 24 Hours: My Active Orders 10/30/19 11:12 NG [Nasogastric Orogastric Tube Removal] [OM.PC] Stat 10/30/19 12:39 oxyCODONE 5 mg PO Q6H PRN 10/30/19 12:40 ALPRAZolam [Xanax] 2 mg PO TID PRN Morphine 2 mg IVPUSH Q6H PRN 10/30/19 12:41 Docusate Sodium [Colace] 100 mg PO BID PRN 10/30/19 21:00 Rosuvastatin 5 mg PO BEDTIME 10/30/19 Lunch GI Soft Low Fiber [Soft Diet] [DIET] - Plan Plan:: This 58 year old female admitted with SBO/ post op ileus. 1. SBO/Postop-ileus- if patient still tolerating clears today, will advance to soft and pull NG. If tolerating soft diet will try to transition to oral pain medications.. Encourage ambulation. Dr Nance consulted and recommended conservative management, if situation should arise that she would need surgical intervention, transfer to higher level of care. Gallbladder shows possible inflammatory changes, could be due to not eating. Will continue with Flagyl and Cipro for now. Continue IV PPI. 2. COPD: Stable, PRN oxygen at home with exertion. VTE prophylaxis: Lovenox
[2019-10-30] MEDS: Enoxaparin 40 MG/0.4 ML Syringe SUBCUT SCH (12:57)
[2019-10-30] MEDS: ALPRAZolam 0.5 MG Tab PO PRN (14:45)
[2019-10-30] MEDS ORDERED: Ketorolac 15 MG/ML SDV IVPUSH PRN (19:39)
[2019-10-30] MEDS ORDERED: Rosuvastatin 10 MG Tab PO SCH (21:00)
[2019-10-31] MEDS: Ciprofloxacin in D5W 400 MG in Premix Bag 1 BAG IV SCH ×4 (02:23→14:04)
[2019-10-31] MEDS: oxyCODONE 5 MG Tab PO PRN ×3 (02:39→15:08)
[2019-10-31] MEDS: metroNIDAZOLE/Normal Saline 500 MG in Premix Bag 1 BAG IV SCH (05:26)
[2019-10-31 06:38] LABS: BLOOD UREA NITROGEN,BUN 6 mg/dL (7.0-18.0); CARBON DIOXIDE,CO2 28.8 mmol/L (21.0-32.0); CHLORIDE,CL 105 mmol/L (98-107); GLUCOSE RANDOM 94 mg/dL (74-106); POTASSIUM,K 3.8 mmol/L (3.5-5.1); SODIUM,NA 139 mmol/L (136-145)
[2019-10-31] MEDS: busPIRone 5 MG Tab PO SCH (08:30)
[2019-10-31] MEDS: ALPRAZolam 0.5 MG Tab PO PRN (08:34)
[2019-10-31] MEDS: Magnesium Hydroxide 400 MG/5 ML Susp 30 ML Cup PO SCH (08:35)
[2019-10-31] MEDS ORDERED: Docusate Sodium 100 MG Cap PO SCH (09:00)
--- NOTE | 2019-10-31 11:18 | PCM.DCSUM1 ---
Discharge Summary - Hospital Course HPI Initial Comments: This 58 year old female with pmh of COPD, oxygen dependent at times of exertion and a complex abdominal history that includes recent take down of colostomy, which was placed June 2019 after perforated SBO. Tonight she arrives to the ED with complaints of abdominal pain, bloating, scant stools/gas as well as N/ V. She reports she was just discharged from the hospital after having surgical takedown of colostomy and repair of abdominal hernias. She reports she has not felt well since. She reports very small amount of gas and has had very small stools. She is unable to eat or drink due to nausea. She denies fevers or chills. No chest pain or SOB. In the ED no leukocytosis noted, K+ 3.8, glucose 92. CT of abdomen/pelvis revealed probably mild jejunal SBO, with some inflammatory changes in the R side of abdomen next to a distended gallbladder and right side of colon. Mild biliary dilation. Surgery, Dr Nance consulted, request NG tube and Hospitalist admission and he would see patient this morning. She was treated with IVFs, Flagyl and Cipro. Patient was kept NPO, started on IVF, slowly diet was introduced, pain was initially controlled with morphine, later switched to oxycodone. Patient eventually had several bowel movements and able to tolerate food well. Patient was medially for dc with OP fu with her surgeon. Diagnosis: Stroke: No - Discharge Data Discharge Date: 10/31/19 Discharge Disposition: Home, Self-Care 01 Condition: Fair - Referral to Home Health Primary Care Physician: Yaw Loza MD - Discharge Diagnosis/Problem(s) (1) Obstruction of intestine SNOMED Code(s): 15980806 ICD Code: K56.609 - UNSP INTESTNL OBST, UNSP TO PARTIAL VERSUS COMPLETE OBST Status: Acute Current Visit: Yes Qualifiers: Intestinal obstruction type: unspecified Intestinal obstruction extent: partial Qualified Code(s): K56.600 - Partial intestinal obstruction, unspecified as to cause (2) Dehydration SNOMED Code(s): 22447224 ICD Code: E86.0 - DEHYDRATION Status: Acute Current Visit: No (3) Nausea vomiting and diarrhea SNOMED Code(s): 2335925 ICD Code: R11.2 - NAUSEA WITH VOMITING, UNSPECIFIED; R19.7 - DIARRHEA, UNSPECIFIED Status: Acute Current Visit: No - Patient Summary/Data Consults: Consultations 10/25/19 22:38 Consult to Physician [CONS] Stat - Patient Instructions Diet: GI Soft/Low Residue/Low Fiber Showering/Bathing: May Shower Notify Provider of: Fever, Increased Pain, Swelling and Redness, Drainage, Nausea and/or Vomiting - Discharge Plan *PRESCRIPTION DRUG MONITORING PROGRAM REVIEWED*: No *COPY OF PRESCRIPTION DRUG MONITORING REPORT IN PATIENT CHELSIE: No Prescriptions/Med Rec: oxyCODONE 10 mg PO Q6H PRN 4 Days #16 tablet PRN Reason: Pain Home Medications: Home Meds ALPRAZolam [Xanax] 2 mg PO TID PRN 05/29/18 [History] Albuterol/Ipratropium [Combivent Respimat] 1 puff IH QID PRN 05/29/18 [History] Budesonide [Pulmicort] 1 dose INH BEDTIME 11/04/18 [History] Fluticasone Propionate [Flonase] 2 puff NASBOTH DAILY 11/04/18 [History] busPIRone [Buspar] 15 mg PO BID 11/04/18 [History] Ondansetron [Zofran ODT] 4 mg PO Q6H PRN 08/04/19 [History] Rosuvastatin [Crestor] 5 mg PO BEDTIME 08/04/19 [History] Budesonide/Formoterol Fumarate [Symbicort 160-4.5 Mcg Inhaler] 6 gm IH BID 30 Days #1 hfa.aer.ad 08/06/19 [Rx] Iron Polysaccharides Complex [Ferrex 150] 150 mg PO DAILY #30 cap 08/06/19 [Rx] Docusate Sodium [Colace] 100 mg PO BID 09/18/19 [History] Ondansetron [Zofran Odt] 8 mg PO Q6H PRN 3 Days #12 tab.rapdis 09/27/19 [Rx] oxyCODONE 10 mg PO Q6H PRN 4 Days #16 tablet 10/31/19 [Rx] Oxygen Therapy Mode: Room Air Patient Handouts: Oxycodone tablets or capsules, Small Bowel Obstruction, Easy- to-Read Referrals: Yaw Loza MD [Primary Care Provider] - 11/02/19 9:00 am - Discharge Summary/Plan Comment DC Time >30 min.: No - Patient Data Vitals - Most Recent: Last Vital Signs Temp 36.6 C 10/31/19 07:42 Pulse 88 10/31/19 07:42 Resp 18 10/31/19 07:42 BP 129/70 10/31/19 07:42 Pulse Ox 95 10/31/19 07:42 Weight - Most Recent: 56.7 kg I&O - Last 24 hours: Intake & Output 10/30/19 10/31/19 10/31/19 22:59 06:59 14:59 Intake Total 1450 600 Output Total 1550 900 Balance -100 -300 Lab Results - Last 24 hrs: Laboratory Results - last 24 hr 10/30/19 10/30/19 10/31/19 Range/Units 12:07 16:51 06:10 WBC 4.60 (4.0-11.0) K/uL RBC 4.24 L (4.30-5.90) M/uL Hgb 11.8 L (12.0-16.0) g/dL Hct 36.7 (36.0-46.0) % MCV 86.6 (80.0-98.0) fL MCH 27.8 (27.0-32.0) pg MCHC 32.2 (31.0-37.0) g/dL RDW Std Deviation 52.9 (28.0-62.0) fl RDW Coeff of Shaq 17 H (11.0-15.0) % Plt Count 359 (150-400) K/uL MPV 9.70 (7.40-12.00) fL Neut % (Auto) 55.7 (48.0-80.0) % Lymph % (Auto) 29.1 (16.0-40.0) % [place] % (Auto) 13.3 (0.0-15.0) % Eos % (Auto) 1.5 (0.0-7.0) % Baso % (Auto) 0.4 (0.0-1.5) % Neut # (Auto) 2.6 (1.4-5.7) K/uL Lymph # (Auto) 1.3 (0.6-2.4) K/uL [place] # (Auto) 0.6 (0.0-0.8) K/uL Eos # (Auto) 0.1 (0.0-0.7) K/uL Baso # (Auto) 0.0 (0.0-0.1) K/uL Nucleated RBC % 0.0 /100WBC Nucleated RBCs # 0 K/uL Sodium (136-145) mmol/L Potassium (3.5-5.1) mmol/L Chloride (98-107) mmol/L Carbon Dioxide (21.0-32.0) mmol/L BUN (7.0-18.0) mg/dL Creatinine (0.6-1.0) mg/dL Est Cr Clr Drug Dosing mL/min Estimated GFR (MDRD) ml/min Glucose (74-106) mg/dL POC Glucose 93 88 (60-110) mg/dL Calcium (8.5-10.1) mg/dL Magnesium (1.8-2.4) mg/dL 10/31/19 10/31/19 Range/Units 06:10 06:53 WBC (4.0-11.0) K/uL RBC (4.30-5.90) M/uL Hgb (12.0-16.0) g/dL Hct (36.0-46.0) % MCV (80.0-98.0) fL MCH (27.0-32.0) pg MCHC (31.0-37.0) g/dL RDW Std Deviation (28.0-62.0) fl RDW Coeff of Shaq (11.0-15.0) % Plt Count (150-400) K/uL MPV (7.40-12.00) fL Neut % (Auto) (48.0-80.0) % Lymph % (Auto) (16.0-40.0) % [place] % (Auto) (0.0-15.0) % Eos % (Auto) (0.0-7.0) % Baso % (Auto) (0.0-1.5) % Neut # (Auto) (1.4-5.7) K/uL Lymph # (Auto) (0.6-2.4) K/uL [place] # (Auto) (0.0-0.8) K/uL Eos # (Auto) (0.0-0.7) K/uL Baso # (Auto) (0.0-0.1) K/uL Nucleated RBC % /100WBC Nucleated RBCs # K/uL Sodium 139 (136-145) mmol/L Potassium 3.8 (3.5-5.1) mmol/L Chloride 105 (98-107) mmol/L Carbon Dioxide 28.8 (21.0-32.0) mmol/L BUN 6 L (7.0-18.0) mg/dL Creatinine 0.5 L (0.6-1.0) mg/dL Est Cr Clr Drug Dosing 107.10 mL/min Estimated GFR (MDRD) > 60.0 ml/min Glucose 94 (74-106) mg/dL POC Glucose 80 (60-110) mg/dL Calcium 8.4 L (8.5-10.1) mg/dL Magnesium 2.2 (1.8-2.4) mg/dL Med Orders - Current: Current Medications Alprazolam (Xanax) 2 mg PO TID PRN PRN Reason: Anxiety Last Admin: 10/31/19 08:34 Dose: 2 mg Buspirone HCl (Buspar) 15 mg PO BID [facility] Last Admin: 10/31/19 08:30 Dose: 15 mg Docusate Sodium (Colace) 100 mg PO DAILY [facility] Last Admin: 10/31/19 08:31 Dose: 100 mg Enoxaparin Sodium (Lovenox) 40 mg SUBCUT Q24H [facility] Last Admin: 10/30/19 12:57 Dose: 40 mg Ciprofloxacin/Dextrose 400 mg/ (Premix) 200 mls @ 200 mls/hr IV Q12H [facility] Last Admin: 10/31/19 02:23 Dose: 200 mls/hr Pantoprazole Sodium 40 mg/ (Sodium Chloride) 10 mls @ 300 mls/hr IV Q12H [facility] Last Admin: 10/30/19 22:54 Dose: 300 mls/hr Lactated Ringer's (Ringers, Lactated) 1,000 mls @ 100 mls/hr IV ASDIRECTED [facility] Last Admin: 10/30/19 11:23 Dose: 100 mls/hr Ketorolac Tromethamine (Toradol) 15 mg IVPUSH Q6H PRN PRN Reason: Pain Stop: 11/04/19 19:39 Last Admin: 10/30/19 21:05 Dose: 15 mg Magnesium Hydroxide (Milk Of Magnesia) 30 ml PO DAILY [facility] Last Admin: 10/31/19 08:35 Dose: 30 ml Ondansetron HCl (Zofran) 4 mg IVPUSH Q4H PRN PRN Reason: Nausea Last Admin: 10/27/19 19:48 Dose: 4 mg Oxycodone HCl (Oxycodone) 10 mg PO Q6H PRN PRN Reason: Pain Last Admin: 10/31/19 08:51 Dose: 10 mg Oxycodone HCl (Oxycodone) 5 mg PO ONETIME PRN PRN Reason: Pain Last Admin: 10/30/19 21:13 Dose: 5 mg Rosuvastatin Calcium (Crestor) 5 mg PO BEDTIME [facility] Last Admin: 10/30/19 21:14 Dose: 5 mg Sodium Chloride (Saline Flush) 10 ml FLUSH ASDIRECTED PRN PRN Reason: Keep Vein Open Sodium Chloride (Saline Flush) 2.5 ml FLUSH ASDIRECTED PRN PRN Reason: Keep Vein Open Discontinued Medications Dextrose/Water (Dextrose 50% In Water) 25 ml IVPUSH ONETIME ONE Stop: 10/26/19 08:02 Last Admin: 10/26/19 08:55 Dose: 25 ml Docusate Sodium (Colace 50 Mg/5 Ml Liquid) 50 mg PO DAILY [facility] Last Admin: 10/28/19 12:03 Dose: 50 mg Docusate Sodium (Colace) 100 mg PO DAILY [facility] Docusate Sodium (Colace) 100 mg PO BID [facility] Last Admin: 10/28/19 21:08 Dose: 100 mg Docusate Sodium (Colace) 100 mg PO BID PRN PRN Reason: Constipation Last Admin: 10/30/19 12:58 Dose: 100 mg Sodium Chloride (Normal Saline) 1,000 mls @ 125 mls/hr IV ASDIRECTED [facility] Last Infusion: 10/25/19 20:30 Dose: 125 mls/hr Sodium Chloride (Normal Saline) 1,000 mls @ 125 mls/hr IV ASDIRECTED [facility] Last Admin: 10/26/19 01:00 Dose: 125 mls/hr Metronidazole 500 mg/ Premix 100 mls @ 100 mls/hr IV Q6H [facility] Last Admin: 10/31/19 05:26 Dose: Not Given Potassium Chloride/Dextrose/Sod Cl (D5 1/2 Ns W/ 20 Meq/L Kcl) 1,000 mls @ 125 mls/hr IV ASDIRECTED [facility] Last Admin: 10/27/19 08:56 Dose: 125 mls/hr Potassium Chloride/Dextrose/Sod Cl (D5 1/2 Ns W/ 40 Meq/L Kcl) 1,000 mls @ 125 mls/hr IV ASDIRECTED [facility] Last Admin: 10/28/19 00:26 Dose: 125 mls/hr Metronidazole (Flagyl 500 Mg In Ns 100 Ml) Confirm Administered Dose 100 mls @ as directed .ROUTE .STK-MED ONE Stop: 10/30/19 09:10 Last Admin: 10/30/19 09:57 Dose: Not Given Iopamidol (Isovue-370 (76%)) 100 ml IVPUSH ONETIME STA Stop: 10/25/19 21:19 Last Admin: 10/26/19 00:35 Dose: 100 ml Lorazepam (Ativan) 1 mg IVPUSH Q4H PRN PRN Reason: Agitation Last Admin: 10/28/19 16:21 Dose: 1 mg Magnesium Hydroxide (Milk Of Magnesia) 30 ml PO ONETIME ONE Stop: 10/28/19 11:15 Last Admin: 10/28/19 12:02 Dose: 30 ml Morphine Sulfate (Morphine) 4 mg IVPUSH ONETIME ONE Stop: 10/25/19 19:34 Last Admin: 10/25/19 19:57 Dose: 4 mg Morphine Sulfate (Morphine) 2 mg IVPUSH ONETIME ONE Stop: 10/25/19 22:40 Last Admin: 10/25/19 22:47 Dose: 2 mg Morphine Sulfate (Morphine) 2 mg IVPUSH Q2H PRN PRN Reason: Pain Last Admin: 10/30/19 09:36 Dose: 2 mg Morphine Sulfate (Morphine) 2 mg IVPUSH Q6H PRN PRN Reason: Pain Last Admin: 10/30/19 14:52 Dose: 2 mg Morphine Sulfate (Morphine) 2 mg IVPUSH Q6H PRN PRN Reason: Pain Ondansetron HCl (Zofran) 4 mg IVPUSH ONETIME ONE Stop: 10/25/19 19:34 Last Admin: 10/25/19 19:54 Dose: 4 mg Oxycodone HCl (Oxycodone) 5 mg PO Q6H PRN PRN Reason: Abdominal Pain Last Admin: 10/30/19 17:47 Dose: 5 mg Alprazolam [Xanax] 2 (Mg) 1 each PO TID PRN PRN Reason: Anxiety Potassium Chloride (Potassium Chloride Solution) 20 meq PO ONETIME ONE Stop: 10/29/19 10:35 Last Admin: 10/29/19 12:00 Dose: Not Given Potassium Chloride (Potassium Chloride) 20 meq PO ONETIME ONE Stop: 10/29/19 11:46 Last Admin: 10/29/19 11:51 Dose: 20 meq Potassium Chloride (Potassium Chloride) 40 meq PO ONETIME ONE Stop: 10/30/19 09:59 Last Admin: 10/30/19 11:18 Dose: 40 meq
[2019-10-31] MEDS: Pantoprazole 40 MG in Sodium Chloride 0.9% 10 ML IV SCH (11:33)
[2019-10-31] MEDS: Enoxaparin 40 MG/0.4 ML Syringe SUBCUT SCH (14:03)
== END 2019-10-31 15:20 | disposition home or self-care (01) | DRG 247 ==
LOC: MW.ED 19:14 → MW.MS 22:43 → OBSVTOIN 10-26 11:52
PROVIDERS: ADMIT Internal Medicine; ATTEND Internal Medicine
PROC: 0D9670Z Drainage of Stomach with Drainage Device, Via Natural or Artificial Opening (ICD-10-PCS; principal; 2019-10-27)
DX: K56.600 Partial intestinal obstruction, unspecified as to cause (principal); J44.9 Chronic obstructive pulmonary disease, unspecified; M19.90 Unspecified osteoarthritis, unspecified site; E86.0 Dehydration; F41.9 Anxiety disorder, unspecified; F32.9 Major depressive disorder, single episode, unspecified; K56.7 Ileus, unspecified; E16.2 Hypoglycemia, unspecified; R19.7 Diarrhea, unspecified; Z79.51 Long term (current) use of inhaled steroids; Z79.899 Other long term (current) drug therapy; Z90.89 Acquired absence of other organs; Z90.49 Acquired absence of other specified parts of digestive tract; Z93.3 Colostomy status; Z98.51 Tubal ligation status; Z87.891 Personal history of nicotine dependence; Z99.81 Dependence on supplemental oxygen
CPT/HCPCS: 36415; 43752; 71045; 71045-26; 74019; 74019-26; 74177; 74177-26; 76705; 76705-26; 80048; 80053; 81003; 82962; 83605; 83690; 83735; 85025; 96361; 96365; 96366; 96367; 96374; 96375; 96376; 99283; 99285-25; A9270-GY; C9113; G0378; J0744; J1650; J1885; J2060; J2270; J2405; J3480; J3490; J7030; J7050; J7120; Q9967

== ENCOUNTER 2019-12-01 13:52 | Inpatient (IN) | payer BC, MEDICARE ==
[2019-12-01] MEDS ORDERED: Sodium Chloride 0.9% 2.5 ML Syringe FLUSH PRN (14:04)
[2019-12-01] MEDS ORDERED: Sodium Chloride 0.9% 10 ML Syringe FLUSH PRN (14:04)
--- NOTE | 2019-12-01 14:26 | EDM.PDOC ---
ED HPI GENERAL MEDICAL PROBLEM - General Chief Complaint: Abdominal Pain Stated Complaint: ABD PAIN Time Seen by Provider: 12/01/19 14:25 Source of Information: Reports: Patient History Limitations: Reports: No Limitations - History of Present Illness INITIAL COMMENTS - FREE TEXT/NARRATIVE: HISTORY AND PHYSICAL: History of present illness: Patient is a 59-year-old female who presents to the emergency room with complaints of left upper abdominal pain over the past several days. Patient states over the past 1 week she has had decreased appetite as this has been causing some slight pain, worse over the past 2 to 3 days. She states she feels like she needs to have a bowel movement but when she bears down is only able to get a small amount of stool noted on the toilet paper. Has not been able to pass gas over the past 24 hours. Describes the abdominal pain as sharp and pressure. She states her last normal bowel movement was approximately 1 week ago. She does take MiraLAX every other day and Colace twice daily. She states she also has been losing a lot of hair, unsure if this is due to her decrease in protein from her lack of appetite or "if something else is going on ". Patient did have a colostomy on 06/2019 for SBO and perforation and had a reversal done in 10/13/2019 in [place]. She states she has not had any postoperative complications although was admitted on 10/26/2019 for small bowel obstruction. Patient denies any fever, chills, headache, change in vision, syncope or near syncope. Denies any chest pain, back pain, shortness of breath or cough. Denies any difficulty starting her stream, vaginal discharge or dysuria. Has not noted any blood in urine or stool. Past medical history of COPD and oxygen dependent. Review of systems: As per history of present illness and below otherwise all systems reviewed and negative. Past medical history: As per history of present illness and as reviewed below otherwise noncontributory. Surgical history: As per history of present illness and as reviewed below otherwise noncontributory. Social history: See social history for further information Family history: As per history of present illness and as reviewed below otherwise noncontributory. Physical exam: General: Chronically ill appearing 59-year-old female. Alert and oriented. Nontoxic-appearing and in no acute distress. Vital signs have been reviewed by me. HEENT: Atraumatic, normocephalic, pupils equal and reactive bilaterally, negative for conjunctival pallor or scleral icterus, mucous membranes dry, TMs normal bilaterally, throat clear, neck supple, nontender, trachea midline. No drooling or trismus noted. No meningeal signs. No hot potato voice noted. Lungs: Clear to auscultation, breath sounds equal bilaterally, chest nontender. Heart: S1S2, regular rate and rhythm without overt murmur Abdomen: Semi-firm, thin, LUQ and LLQ tenderness. Negative for masses or hepatosplenomegaly. Negative for costovertebral tenderness. Pelvis: Stable nontender. Skin: Intact, warm, dry. No lesions or rashes noted. Extremities: Atraumatic, moves all extremities per self without difficulty or deficits, negative for cords or calf pain. Neurovascular unremarkable. Neuro: Awake, alert, oriented. Cranial nerves II through XII unremarkable. Cerebellum unremarkable. Motor and sensory unremarkable throughout. Exam nonfocal. Notes: Lab work is unremarkable. CT shows increased stool throughout the colon. Mildly dilated small bowel loops showing fluid and air with findings suspicious for mid small bowel obstruction. Dilated CBD with mild intrahepatic duct dilation. Gallbladder appears to be in place. Etiology for this biliary dilatation is not seen on this exam and was noted previous ultrasound of . Dr Fuller was consulted on this case. He is agreeable to keeping this patient for observation. Patient was made aware of diagnostic findings and is agreeable with plan of care. Diagnostics: CBC, CMP, TSH, UA, CT abd/pelvis Therapeutics: IV fluids, Zofran, MS Impression: Small bowel obstruction Plan: Observation admission to Med/Surg Definitive disposition and diagnosis as appropriate pending reevaluation and review of above. left abd Pain Score (Numeric/FACES): 7 - Related Data Allergies Allergy/AdvReac Type Severity Reaction Status Date / Time No Known Allergies Allergy Verified 12/01/19 14:19 Home Meds: Home Meds ALPRAZolam [Xanax] 2 mg PO TID PRN 05/29/18 [History] Albuterol/Ipratropium [Combivent Respimat] 1 puff IH QID PRN 05/29/18 [History] Budesonide [Pulmicort] 1 dose INH BEDTIME 11/04/18 [History] Fluticasone Propionate [Flonase] 2 puff NASBOTH DAILY 11/04/18 [History] busPIRone [Buspar] 15 mg PO BID 11/04/18 [History] Ondansetron [Zofran ODT] 4 mg PO Q6H PRN 08/04/19 [History] Rosuvastatin [Crestor] 5 mg PO BEDTIME 08/04/19 [History] Budesonide/Formoterol Fumarate [Symbicort 160-4.5 Mcg Inhaler] 6 gm IH BID 30 Days #1 hfa.aer.ad 08/06/19 [Rx] Iron Polysaccharides Complex [Ferrex 150] 150 mg PO DAILY #30 cap 08/06/19 [Rx] Docusate Sodium [Colace] 100 mg PO BID 09/18/19 [History] Past Medical History HEENT History: Reports: None Cardiovascular History: Reports: Heart Murmur 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 Respiratory History: Reports: COPD, Other (See Below) Other Respiratory History: emphsyema Gastrointestinal History: Reports: Bowel Obstruction Other Gastrointestinal History: Bowel obstruction 2010, 2018, perforated colon in 2018 Genitourinary History: Reports: None 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: Musculoskeletal History: Reports: Arthritis Neurological History: Reports: None Psychiatric History: Reports: Anxiety, Depression, Panic Attack Endocrine/Metabolic History: Reports: None Hematologic History: Reports: Blood Transfusion(s) Immunologic History: Reports: None Oncologic (Cancer) History: Reports: None Dermatologic History: Reports: None - Infectious Disease History Infectious Disease History: Reports: Chicken Pox, Measles, Mumps - Past Surgical History Head Surgeries/Procedures: Reports: None HEENT Surgical History: Reports: Tonsillectomy Cardiovascular Surgical History: Reports: Cardiac Ablation Other Cardiovascular Surgeries/Procedures: Cardiac ablation in 1991 Respiratory Surgical History: Reports: None GI Surgical History: Reports: Appendectomy, Colostomy, Other (See Below) Female Surgical History: Reports: Section, Tubal Ligation Endocrine Surgical History: Reports: None Neurological Surgical History: Reports: None Musculoskeletal Surgical History: Reports: None Oncologic Surgical History: Reports: None Dermatological Surgical History: Reports: None Social & Family History - Family History Family Medical History: Noncontributory - Caffeine Use Caffeine Use: Reports: Coffee Other Caffeine Use: 3cups/day Caffeine Use Comment: 1/2 cup each day ED ROS GENERAL - Review of Systems Review Of Systems: Comprehensive ROS is negative, except as noted in HPI. ED EXAM, RENAL/ - Physical Exam Exam: See Below (See dictation) Course - Vital Signs Last Recorded V/S: Last Vital Signs Temp 98.6 F 12/01/19 14:10 Pulse 111 H 12/01/19 14:10 Resp 16 12/01/19 14:10 BP 130/85 12/01/19 14:10 Pulse Ox 95 12/01/19 14:10 - Orders/Labs/Meds Orders: Active Orders 24 hr Category Date Time Status Admission Status [Patient Status] [ADT] Stat ADT 12/01/19 17:22 Ordered CULTURE URINE [RM] Stat Lab 12/01/19 14:36 Received Morphine Med 12/01/19 17:21 Once 2 mg IVPUSH ONETIME ONE Sodium Chloride 0.9% [Saline Flush] Med 12/01/19 14:04 Active 10 ml FLUSH ASDIRECTED PRN Sodium Chloride 0.9% [Saline Flush] Med 12/01/19 14:04 Active 2.5 ml FLUSH ASDIRECTED PRN Saline Lock Insert [OM.PC] Stat Oth 12/01/19 14:04 Ordered Medication Orders Sodium Chloride (Saline Flush) 10 ml FLUSH ASDIRECTED PRN PRN Reason: Keep Vein Open Sodium Chloride (Saline Flush) 2.5 ml FLUSH ASDIRECTED PRN PRN Reason: Keep Vein Open Labs: Laboratory Tests 12/01/19 12/01/19 12/01/19 Range/Units 14:36 14:45 14:45 WBC 4.25 (4.0-11.0) K/uL RBC 4.94 (4.30-5.90) M/uL Hgb 13.6 (12.0-16.0) g/dL Hct 44.1 (36.0-46.0) % MCV 89.3 (80.0-98.0) fL MCH 27.5 (27.0-32.0) pg MCHC 30.8 L (31.0-37.0) g/dL RDW Std Deviation 50.2 (28.0-62.0) fl RDW Coeff of Shaq 15 (11.0-15.0) % Plt Count 167 (150-400) K/uL MPV 9.90 (7.40-12.00) fL Neut % (Auto) 47.4 L (48.0-80.0) % Lymph % (Auto) 38.4 (16.0-40.0) % [place] % (Auto) 11.1 (0.0-15.0) % Eos % (Auto) 2.6 (0.0-7.0) % Baso % (Auto) 0.5 (0.0-1.5) % Neut # (Auto) 2.0 (1.4-5.7) K/uL Lymph # (Auto) 1.6 (0.6-2.4) K/uL [place] # (Auto) 0.5 (0.0-0.8) K/uL Eos # (Auto) 0.1 (0.0-0.7) K/uL Baso # (Auto) 0.0 (0.0-0.1) K/uL Nucleated RBC % 0.0 /100WBC Nucleated RBCs # 0 K/uL Sodium 143 (136-145) mmol/L Potassium 3.9 (3.5-5.1) mmol/L Chloride 104 (98-107) mmol/L Carbon Dioxide 29.5 (21.0-32.0) mmol/L BUN 7 (7.0-18.0) mg/dL Creatinine 0.7 (0.6-1.0) mg/dL Est Cr Clr Drug Dosing 72.52 mL/min Estimated GFR (MDRD) > 60.0 ml/min Glucose 84 (74-106) mg/dL Calcium 9.3 (8.5-10.1) mg/dL Total Bilirubin 0.8 (0.2-1.0) mg/dL AST 17 (15-37) IU/L ALT 18 (14-63) IU/L Alkaline Phosphatase 82 (46-116) U/L Total Protein 7.7 (6.4-8.2) g/dL Albumin 4.0 (3.4-5.0) g/dL Globulin 3.7 (2.6-4.0) g/dL Albumin/Globulin Ratio 1.1 (0.9-1.6) TSH 3rd Generation (0.36-3.74) uIU/mL Urine Color YELLOW Urine Appearance CLEAR Urine pH 6.0 (5.0-8.0) Ur Specific [place] >= 1.030 (1.001-1.035) Urine Protein NEGATIVE (NEGATIVE) mg/dL Urine Glucose (UA) NEGATIVE (NEGATIVE) mg/dL Urine Ketones NEGATIVE (NEGATIVE) mg/dL Urine Occult Blood NEGATIVE (NEGATIVE) Urine Nitrite NEGATIVE (NEGATIVE) Urine Bilirubin NEGATIVE (NEGATIVE) Urine Urobilinogen 0.2 (<2.0) EU/dL Ur Leukocyte Esterase TRACE H (NEGATIVE) Urine RBC 0-2 (0-2/HPF) Urine WBC 2-5 (0-5/HPF) Ur Epithelial Cells OCCASIONAL (NONE-FEW) Urine Bacteria RARE (NEGATIVE) 12/01/19 Range/Units 14:45 WBC (4.0-11.0) K/uL RBC (4.30-5.90) M/uL Hgb (12.0-16.0) g/dL Hct (36.0-46.0) % MCV (80.0-98.0) fL MCH (27.0-32.0) pg MCHC (31.0-37.0) g/dL RDW Std Deviation (28.0-62.0) fl RDW Coeff of Shaq (11.0-15.0) % Plt Count (150-400) K/uL MPV (7.40-12.00) fL Neut % (Auto) (48.0-80.0) % Lymph % (Auto) (16.0-40.0) % [place] % (Auto) (0.0-15.0) % Eos % (Auto) (0.0-7.0) % Baso % (Auto) (0.0-1.5) % Neut # (Auto) (1.4-5.7) K/uL Lymph # (Auto) (0.6-2.4) K/uL [place] # (Auto) (0.0-0.8) K/uL Eos # (Auto) (0.0-0.7) K/uL Baso # (Auto) (0.0-0.1) K/uL Nucleated RBC % /100WBC Nucleated RBCs # K/uL Sodium (136-145) mmol/L Potassium (3.5-5.1) mmol/L Chloride (98-107) mmol/L Carbon Dioxide (21.0-32.0) mmol/L BUN (7.0-18.0) mg/dL Creatinine (0.6-1.0) mg/dL Est Cr Clr Drug Dosing mL/min Estimated GFR (MDRD) ml/min Glucose (74-106) mg/dL Calcium (8.5-10.1) mg/dL Total Bilirubin (0.2-1.0) mg/dL AST (15-37) IU/L ALT (14-63) IU/L Alkaline Phosphatase (46-116) U/L Total Protein (6.4-8.2) g/dL Albumin (3.4-5.0) g/dL Globulin (2.6-4.0) g/dL Albumin/Globulin Ratio (0.9-1.6) TSH 3rd Generation 1.29 (0.36-3.74) uIU/mL Urine Color Urine Appearance Urine pH (5.0-8.0) Ur Specific [place] (1.001-1.035) Urine Protein (NEGATIVE) mg/dL Urine Glucose (UA) (NEGATIVE) mg/dL Urine Ketones (NEGATIVE) mg/dL Urine Occult Blood (NEGATIVE) Urine Nitrite (NEGATIVE) Urine Bilirubin (NEGATIVE) Urine Urobilinogen (<2.0) EU/dL Ur Leukocyte Esterase (NEGATIVE) Urine RBC (0-2/HPF) Urine WBC (0-5/HPF) Ur Epithelial Cells (NONE-FEW) Urine Bacteria (NEGATIVE) Meds: Medications Generic Name Dose Route Start Last Admin Trade Name [place] PRN Reason Stop Dose Admin Sodium Chloride 10 ml 12/01/19 14:04 Saline Flush FLUSH ASDIRECTED PRN Keep Vein Open Sodium Chloride 2.5 ml 12/01/19 14:04 Saline Flush FLUSH ASDIRECTED PRN Keep Vein Open Discontinued Medications Generic Name Dose Route Start Last Admin Trade Name Freq PRN Reason Stop Dose Admin Sodium Chloride 1,000 mls @ 999 mls/hr 12/01/19 14:27 12/01/19 14:58 Normal Saline IV 12/01/19 15:27 999 mls/hr STAT ONE Administration Iopamidol 66 ml 12/01/19 16:20 12/01/19 16:21 Isovue Multipack-370 (76%) IVPUSH 12/01/19 16:21 66 ml ONETIME STA Administration Morphine Sulfate 2 mg 12/01/19 14:27 12/01/19 14:58 Morphine IVPUSH 12/01/19 14:28 2 mg ONETIME ONE Administration Ondansetron HCl 4 mg 12/01/19 14:27 12/01/19 14:58 Zofran IVPUSH 12/01/19 14:28 4 mg ONETIME ONE Administration Departure - Departure Time of Disposition: 17:24 Disposition: Refer to Observation Clinical Impression: Small bowel obstruction - Discharge Information Referrals: Yaw Loza MD [Primary Care Provider] - Forms: ED Department Discharge Sepsis Event Note - Evaluation Sepsis Screening Result: No Definite Risk - Focused Exam Vital Signs: Vital Signs Temp Pulse Resp BP Pulse Ox 12/01/19 14:10 98.6 F 111 H 16 130/85 95 Date Exam was Performed: 12/01/19 Time Exam was Performed: 17:23 - My Orders Last 24 Hours: My Active Orders 12/01/19 14:04 Sodium Chloride 0.9% [Saline Flush] 10 ml FLUSH ASDIRECTED PRN Sodium Chloride 0.9% [Saline Flush] 2.5 ml FLUSH ASDIRECTED PRN Saline Lock Insert [OM.PC] Stat 12/01/19 14:36 CULTURE URINE [RM] Stat 12/01/19 17:21 Morphine 2 mg IVPUSH ONETIME ONE 12/01/19 17:22 Admission Status [Patient Status] [ADT] Stat - Assessment/Plan Last 24 Hours: My Active Orders 12/01/19 14:04 Sodium Chloride 0.9% [Saline Flush] 10 ml FLUSH ASDIRECTED PRN Sodium Chloride 0.9% [Saline Flush] 2.5 ml FLUSH ASDIRECTED PRN Saline Lock Insert [OM.PC] Stat 12/01/19 14:36 CULTURE URINE [RM] Stat 12/01/19 17:21 Morphine 2 mg IVPUSH ONETIME ONE 12/01/19 17:22 Admission Status [Patient Status] [ADT] Stat
[2019-12-01] MEDS ORDERED: Ondansetron 4 MG/2 ML SDV IVPUSH ONE (14:27)
[2019-12-01] MEDS ORDERED: Sodium Chloride 0.9% 1,000 ML IV ONE ×2 (14:27→17:24)
[2019-12-01] MEDS ORDERED: Morphine 2 MG/ML Syringe IVPUSH ONE ×2 (14:27→17:21)
[2019-12-01 15:37] LABS: BLOOD UREA NITROGEN,BUN 7 mg/dL (7.0-18.0); CARBON DIOXIDE,CO2 29.5 mmol/L (21.0-32.0); CHLORIDE,CL 104 mmol/L (98-107); GLUCOSE RANDOM 84 mg/dL (74-106); POTASSIUM,K 3.9 mmol/L (3.5-5.1); SODIUM,NA 143 mmol/L (136-145)
[2019-12-01] MEDS ORDERED: Iopamidol 755 MG/ML 500 ML Multipack Bottle IVPUSH STA (16:20)
--- NOTE | 2019-12-01 17:08 | CT ---
CT abdomen and pelvis Technique: Multiple axial sections were obtained from above the dome of the diaphragm inferiorly through the pubic symphysis. Intravenous contrast was utilized. No oral contrast has been given. Limitations: Study difficult to interpret without oral contrast. Comparison: Prior CT abdomen and pelvis study of 10/25/19. Findings: Increased stool is noted throughout the colon. Numerous fluid and air-filled loops of small bowel are seen. Findings are suspicious for mid small bowel obstruction. Transition point appears to be within the pelvis. Etiology is not appreciated on this exam. There has been removal of patient's ostomy when compared to prior CT exam. Slight scarring is noted within both lung bases. No acute parenchymal change is appreciated. Slight intrahepatic biliary duct dilatation is seen which appears stable from prior exam. Common bile duct is also mildly dilated 1.0 cm. Uncertain as to this finding is the gallbladder appears to be present. Spleen size is normal. Pancreas shows no discrete abnormality but not optimally seen due to adjacent unopacified bowel loops. Kidneys show symmetric contrast enhancement. Small cortical cyst is noted within the left kidney. Aorta shows atherosclerotic change. This continues into the iliac vessels without aneurysm. Appendix not visualized. No discrete pelvic mass is appreciated. Anastomotic sutures are noted within the left side of the pelvis. Impression: 1. Increased stool throughout the colon. 2. Mildly dilated small bowel loops showing fluid and air with findings suspicious for mid small bowel obstruction. 3. Dilated CBD with mild intrahepatic duct dilatation. Gallbladder appears to be in place. Etiology for this biliary dilatation not seen on this exam. This finding was noted on previous ultrasound of 10/26/19. 4. Other findings believed to be incidental. Diagnostic code #3 This report was dictated in MDT
[2019-12-01] MEDS ORDERED: Sodium Chloride 0.9% 1,000 ML IV SCH (18:15)
[2019-12-01] MEDS: Enoxaparin 40 MG/0.4 ML Syringe SUBCUT SCH (18:45)
[2019-12-01] MEDS ORDERED: Albuterol/Ipratropium 4 GM Inhalation Spray INH PRN ×2 (19:14→19:21)
--- NOTE | 2019-12-01 19:36 | PCM.HP.2 ---
H&P History of Present Illness - General Date of Service: 12/01/19 Admit Problem/Dx: Admission Diagnosis/Problem Admission Diagnosis/Problem Small bowel obstruction Source of Information: Patient History Limitations: Reports: No Limitations - History of Present Illness Initial Comments - Free Text/Narative: 59-year-old female presented to ER complaining of LUQ and LLQ pain. She has a PMH of COPD on 1 L home oxygen prn, colostomy s/p revision, anxiety and depression. Her abdominal pain started 1 week ago but got acutely worse over the past 2-3 days. The pain is sharp in nature and aggravated by eating. She also complains of constipation and not passing any gas since last night. She has a history of colostomy after bowel perforation in Jun 2019. A colostomy reversal was done in Sep 2019. Of note, patient was recently admitted for small bowel obstruction in Oct 2019. Patient denies having fevers, chills, n/v, blood in stool or blood in urine. In the ER, CT abdom/pelvis showed stool throughout colon, dilated loops of bowel with air and fluid suspicious for SBO, CBC dilatation (1.0 cm) and slight intra-hepatic duct dilatation. Patient admitted for further evaluation and treatment. left abd Pain Score (Numeric/FACES): 7 - Related Data Allergies/Adverse Reactions: Allergies Allergy/AdvReac Type Severity Reaction Status Date / Time No Known Allergies Allergy Verified 12/01/19 14:19 Home Medications: Home Meds ALPRAZolam [Xanax] 2 mg PO TID PRN 05/29/18 [History] Albuterol/Ipratropium [Combivent Respimat] 1 puff IH QID PRN 05/29/18 [History] Budesonide [Pulmicort] 1 dose INH BEDTIME 11/04/18 [History] Fluticasone Propionate [Flonase] 2 puff NASBOTH DAILY 11/04/18 [History] busPIRone [Buspar] 15 mg PO BID 11/04/18 [History] Ondansetron [Zofran ODT] 4 mg PO Q6H PRN 08/04/19 [History] Rosuvastatin [Crestor] 5 mg PO BEDTIME 08/04/19 [History] Budesonide/Formoterol Fumarate [Symbicort 160-4.5 Mcg Inhaler] 6 gm IH BID 30 Days #1 hfa.aer.ad 08/06/19 [Rx] Iron Polysaccharides Complex [Ferrex 150] 150 mg PO DAILY #30 cap 08/06/19 [Rx] Docusate Sodium [Colace] 100 mg PO BID 09/18/19 [History] Past Medical History HEENT History: Reports: None Cardiovascular History: Reports: Heart Murmur 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 Respiratory History: Reports: COPD, Other (See Below) Other Respiratory History: emphsyema Gastrointestinal History: Reports: Bowel Obstruction Other Gastrointestinal History: Bowel obstruction 2010, 2018, perforated colon in 2019 Genitourinary History: Reports: None [employer] History: Reports: Musculoskeletal History: Reports: Arthritis Neurological History: Reports: None Psychiatric History: Reports: Anxiety, Depression, Panic Attack Endocrine/Metabolic History: Reports: None Hematologic History: Reports: Blood Transfusion(s) Immunologic History: Reports: None Oncologic (Cancer) History: Reports: None Dermatologic History: Reports: None - Infectious Disease History Infectious Disease History: Reports: Chicken Pox, Measles, Mumps - Past Surgical History Head Surgeries/Procedures: Reports: None HEENT Surgical History: Reports: Tonsillectomy Cardiovascular Surgical History: Reports: Cardiac Ablation Other Cardiovascular Surgeries/Procedures: Cardiac ablation in 1991 Respiratory Surgical History: Reports: None GI Surgical History: Reports: Appendectomy, Colostomy, Other (See Below) Female Surgical History: Reports: Section, Tubal Ligation Endocrine Surgical History: Reports: None Neurological Surgical History: Reports: None Musculoskeletal Surgical History: Reports: None Oncologic Surgical History: Reports: None Dermatological Surgical History: Reports: None Social & Family History - Family History Family Medical History: Noncontributory - Tobacco Use Smoking Status *Q: Current Status Unknown - Caffeine Use Caffeine Use: Reports: Coffee Other Caffeine Use: 3cups/day Caffeine Use Comment: 1/2 cup each day H&P Review of Systems - Review of Systems: Review Of Systems: Comprehensive ROS is negative, except as noted in HPI. Exam - Exam Exam: See Below - Vital Signs Vital Signs: Last Vital Signs Temp 97.3 F 12/01/19 18:33 Pulse 87 12/01/19 18:33 Resp 18 12/01/19 18:33 BP 121/69 12/01/19 18:33 Pulse Ox 93 L 12/01/19 18:33 Weight: 126 lb 8.725 oz - Exam General: Alert, Oriented, Cooperative HEENT: Conjunctiva Clear, EOMI, Hearing Intact Neck: Supple, Trachea Midline Lungs: Clear to Auscultation, Normal Respiratory Effort Cardiovascular: Regular Rate, Regular Rhythm GI/Abdominal Exam: Soft, No Distention, Other (hyperactive bowel sounds. ttp in LUQ and LLQ. Brooke's sign negative.) Extremities: Normal Inspection, No Pedal Edema Skin: Warm, Dry, Intact Neurological: Cranial Nerves Intact, Strength Equal Bilateral, Normal Speech, Normal Tone Psychiatric: Alert, Normal Affect, Normal Mood - Patient Data Lab Results Last 24 hrs: Laboratory Results - last 24 hr 12/01/19 12/01/19 12/01/19 Range/Units 14:36 14:45 14:45 WBC 4.25 (4.0-11.0) K/uL RBC 4.94 (4.30-5.90) M/uL Hgb 13.6 (12.0-16.0) g/dL Hct 44.1 (36.0-46.0) % MCV 89.3 (80.0-98.0) fL MCH 27.5 (27.0-32.0) pg MCHC 30.8 L (31.0-37.0) g/dL RDW Std Deviation 50.2 (28.0-62.0) fl RDW Coeff of Shaq 15 (11.0-15.0) % Plt Count 167 (150-400) K/uL MPV 9.90 (7.40-12.00) fL Neut % (Auto) 47.4 L (48.0-80.0) % Lymph % (Auto) 38.4 (16.0-40.0) % Duc[place]ne % (Auto) 11.1 (0.0-15.0) % Eos % (Auto) 2.6 (0.0-7.0) % Baso % (Auto) 0.5 (0.0-1.5) % Neut # (Auto) 2.0 (1.4-5.7) K/uL Lymph # (Auto) 1.6 (0.6-2.4) K/uL [place]ne # (Auto) 0.5 (0.0-0.8) K/uL Eos # (Auto) 0.1 (0.0-0.7) K/uL Baso # (Auto) 0.0 (0.0-0.1) K/uL Nucleated RBC % 0.0 /100WBC Nucleated RBCs # 0 K/uL Sodium 143 (136-145) mmol/L Potassium 3.9 (3.5-5.1) mmol/L Chloride 104 (98-107) mmol/L Carbon Dioxide 29.5 (21.0-32.0) mmol/L BUN 7 (7.0-18.0) mg/dL Creatinine 0.7 (0.6-1.0) mg/dL Est Cr Clr Drug Dosing 72.52 mL/min Estimated GFR (MDRD) > 60.0 ml/min Glucose 84 (74-106) mg/dL Calcium 9.3 (8.5-10.1) mg/dL Total Bilirubin 0.8 (0.2-1.0) mg/dL AST 17 (15-37) IU/L ALT 18 (14-63) IU/L Alkaline Phosphatase 82 (46-116) U/L Total Protein 7.7 (6.4-8.2) g/dL Albumin 4.0 (3.4-5.0) g/dL Globulin 3.7 (2.6-4.0) g/dL Albumin/Globulin Ratio 1.1 (0.9-1.6) Lipase (73-393) U/L TSH 3rd Generation (0.36-3.74) uIU/mL Urine Color YELLOW Urine Appearance CLEAR Urine pH 6.0 (5.0-8.0) Ur Specific Vincent >= 1.030 (1.001-1.035) Urine Protein NEGATIVE (NEGATIVE) mg/dL Urine Glucose (UA) NEGATIVE (NEGATIVE) mg/dL Urine Ketones NEGATIVE (NEGATIVE) mg/dL Urine Occult Blood NEGATIVE (NEGATIVE) Urine Nitrite NEGATIVE (NEGATIVE) Urine Bilirubin NEGATIVE (NEGATIVE) Urine Urobilinogen 0.2 (<2.0) EU/dL Ur Leukocyte Esterase TRACE H (NEGATIVE) Urine RBC 0-2 (0-2/HPF) Urine WBC 2-5 (0-5/HPF) Ur Epithelial Cells OCCASIONAL (NONE-FEW) Urine Bacteria RARE (NEGATIVE) 12/01/19 12/01/19 Range/Units 14:45 18:05 WBC (4.0-11.0) K/uL RBC (4.30-5.90) M/uL Hgb (12.0-16.0) g/dL Hct (36.0-46.0) % MCV (80.0-98.0) fL MCH (27.0-32.0) pg MCHC (31.0-37.0) g/dL RDW Std Deviation (28.0-62.0) fl RDW Coeff of Shaq (11.0-15.0) % Plt Count (150-400) K/uL MPV (7.40-12.00) fL Neut % (Auto) (48.0-80.0) % Lymph % (Auto) (16.0-40.0) % Duc[place]ne % (Auto) (0.0-15.0) % Eos % (Auto) (0.0-7.0) % Baso % (Auto) (0.0-1.5) % Neut # (Auto) (1.4-5.7) K/uL Lymph # (Auto) (0.6-2.4) K/uL Duc[place]ne # (Auto) (0.0-0.8) K/uL Eos # (Auto) (0.0-0.7) K/uL Baso # (Auto) (0.0-0.1) K/uL Nucleated RBC % /100WBC Nucleated RBCs # K/uL Sodium (136-145) mmol/L Potassium (3.5-5.1) mmol/L Chloride (98-107) mmol/L Carbon Dioxide (21.0-32.0) mmol/L BUN (7.0-18.0) mg/dL Creatinine (0.6-1.0) mg/dL Est Cr Clr Drug Dosing mL/min Estimated GFR (MDRD) ml/min Glucose (74-106) mg/dL Calcium (8.5-10.1) mg/dL Total Bilirubin (0.2-1.0) mg/dL AST (15-37) IU/L ALT (14-63) IU/L Alkaline Phosphatase (46-116) U/L Total Protein (6.4-8.2) g/dL Albumin (3.4-5.0) g/dL Globulin (2.6-4.0) g/dL Albumin/Globulin Ratio (0.9-1.6) Lipase 53 L (73-393) U/L TSH 3rd Generation 1.29 (0.36-3.74) uIU/mL Urine Color Urine Appearance Urine pH (5.0-8.0) Ur Specific Vincent (1.001-1.035) Urine Protein (NEGATIVE) mg/dL Urine Glucose (UA) (NEGATIVE) mg/dL Urine Ketones (NEGATIVE) mg/dL Urine Occult Blood (NEGATIVE) Urine Nitrite (NEGATIVE) Urine Bilirubin (NEGATIVE) Urine Urobilinogen (<2.0) EU/dL Ur Leukocyte Esterase (NEGATIVE) Urine RBC (0-2/HPF) Urine WBC (0-5/HPF) Ur Epithelial Cells (NONE-FEW) Urine Bacteria (NEGATIVE) Result Diagrams: 12/01/19 14:45 12/01/19 14:45 Sepsis Event Note - Evaluation Sepsis Screening Result: No Definite Risk - Focused Exam Vital Signs: Vital Signs Temp Pulse Resp BP Pulse Ox Pulse Ox 12/01/19 18:33 97.3 F 87 18 121/69 93 L 12/01/19 18:12 93 L 12/01/19 17:51 90 16 127/79 94 L 12/01/19 15:50 108 H 16 132/80 96 12/01/19 14:10 98.6 F 111 H 16 130/85 95 Date Exam was Performed: 12/01/19 Time Exam was Performed: 19:28 Problem List Initiated/Reviewed/Updated: Yes Orders Last 24hrs: Active Orders 24 hr Category Date Time Status Admission Status [Patient Status] [ADT] Stat ADT 12/01/19 17:22 Active Accu Check [Blood Glucose Check, Bedside] [RC] Q6H Care 12/01/19 19:16 Active Antiembolic Devices [RC] PER UNIT ROUTINE Care 12/01/19 18:18 Inactive Notify Provider Consults [RC] ASDIRECTED Care 12/01/19 18:33 Active Oxygen Therapy [RC] PRN Care 12/01/19 18:12 Active Up ad Felicity [RC] ASDIRECTED Care 12/01/19 18:12 Active VTE/DVT Education [RC] PER UNIT ROUTINE Care 12/01/19 18:12 Active Vital Signs [RC] Q4H Care 12/01/19 18:12 Active Consult to Physician [CONS] Routine Cons 12/01/19 18:33 Active Nothing per Oral Now Diet [DIET] Diet 12/01/19 Dinner Active HIDA with EF [Cholescintigraphy w Pharm Int] [NM] Exams 12/01/19 18:21 Ordered Urgent CBC WITH AUTO DIFF [HEME] AM Lab 12/02/19 05:11 Ordered COMPREHENSIVE METABOLIC PN,CMP [CHEM] AM Lab 12/02/19 05:11 Ordered CULTURE URINE [RM] Stat Lab 12/01/19 14:36 Received Albuterol/Ipratropium [Combivent Respimat] Med 12/01/19 19:21 Active 0 gm INH QID PRN Budesonide [Pulmicort] Med 12/01/19 21:00 Ordered DOSE mg INH BEDTIME Budesonide/Formoterol [Symbicort 160-4.5 MCG] Med 12/01/19 21:00 Active 0 gm INH BID Dextrose 5%-0.9% NaCl [Dextrose 5%-Normal Saline] 1,000 Med 12/01/19 19:30 Active ml IV ASDIRECTED Enoxaparin [Lovenox] Med 12/01/19 18:30 Active 40 mg SUBCUT Q24H LORazepam [Ativan] Med 12/01/19 19:18 Active 1 mg IVPUSH Q6H PRN Morphine Med 12/01/19 18:12 Active 2 mg IVPUSH Q2H PRN Ondansetron [Zofran] Med 12/01/19 18:12 Active 4 mg IVPUSH Q4H PRN Sodium Chloride 0.9% [Saline Flush] Med 12/01/19 14:04 Active 10 ml FLUSH ASDIRECTED PRN Sodium Chloride 0.9% [Saline Flush] Med 12/01/19 14:04 Active 2.5 ml FLUSH ASDIRECTED PRN Saline Lock Insert [OM.PC] Stat Oth 12/01/19 14:04 Ordered Resuscitation Status Routine Resus Stat 12/01/19 18:12 Ordered Medication Orders Albuterol/Ipratropium (Combivent Respimat) 0 gm INH QID PRN PRN Reason: Shortness of Breath Budesonide (Pulmicort) 0.5 mg INH BEDTIME CLARA Budesonide/Formoterol Fumarate (Symbicort 160-4.5 Mcg) 0 gm INH BID CLARA Enoxaparin Sodium (Lovenox) 40 mg SUBCUT Q24H [facility] Last Admin: 12/01/19 18:45 Dose: 40 mg Dextrose/Sodium Chloride (Dextrose 5%-Normal Saline) 1,000 mls @ 100 mls/hr IV ASDIRECTED [facility] Lorazepam (Ativan) 1 mg IVPUSH Q6H PRN PRN Reason: Anxiety Morphine Sulfate (Morphine) 2 mg IVPUSH Q2H PRN PRN Reason: Pain (severe 7-10) Stop: 12/02/19 18:13 Ondansetron HCl (Zofran) 4 mg IVPUSH Q4H PRN PRN Reason: Nausea Sodium Chloride (Saline Flush) 10 ml FLUSH ASDIRECTED PRN PRN Reason: Keep Vein Open Sodium Chloride (Saline Flush) 2.5 ml FLUSH ASDIRECTED PRN PRN Reason: Keep Vein Open Assessment/Plan Comment:: Assessment and Plan: 1. Abdominal pain secondary to small bowel obstruction: - Admit to med/surg. Patient will be NPO and started on IV fluids D5/NS @ 100 cc /hr with accucheks q6h. General surgery consulted and recommended HIDA scan. General surgery will see patient in the AM. For pain, IV morphine 2 mg q2 prn. 2. Past medical history of COPD, anxiety and depression. 3. DVT prophylaxis: lovenox.
[2019-12-01] MEDS: Dextrose 5%-0.9% NaCl 1,000 ML IV SCH (20:16)
[2019-12-01] MEDS: Morphine 2 MG/ML Syringe IVPUSH PRN ×2 (20:19→22:37)
[2019-12-01] MEDS ORDERED: Enoxaparin 40 MG/0.4 ML Syringe SUBCUT SCH (21:00)
[2019-12-01] MEDS: LORazepam 2 MG/ML SDV IVPUSH PRN (22:16)
[2019-12-01] MEDS: BUDESONIDE INH SCH (22:27)
[2019-12-01] MEDS: Budesonide 0.5 MG/2 ML Neb Susp INH SCH ×2 (22:27→22:37)
[2019-12-01] MEDS: FORMOTEROL INH SCH (22:27)
[2019-12-02] MEDS: Morphine 2 MG/ML Syringe IVPUSH PRN ×9 (00:47→23:38)
[2019-12-02] MEDS: LORazepam 2 MG/ML SDV IVPUSH PRN ×3 (04:58→17:28)
[2019-12-02 06:06] LABS: BLOOD UREA NITROGEN,BUN 5 mg/dL (7.0-18.0); CARBON DIOXIDE,CO2 27.3 mmol/L (21.0-32.0); CHLORIDE,CL 109 mmol/L (98-107); GLUCOSE RANDOM 84 mg/dL (74-106); POTASSIUM,K 3.6 mmol/L (3.5-5.1); SODIUM,NA 144 mmol/L (136-145)
[2019-12-02] MEDS: Dextrose 5%-0.9% NaCl 1,000 ML IV SCH ×2 (06:18→15:56)
[2019-12-02] MEDS: FORMOTEROL INH SCH (08:14)
[2019-12-02] MEDS: BUDESONIDE INH SCH (08:14)
--- NOTE | 2019-12-02 11:48 | PCM.PN ---
- General Info Date of Service: 12/02/19 Subjective Update: Complains of abdominal pain overnight. Reports passing a bit of gas overnight. No bowel movement. Denies any fevers, chills, SOB, chest pain, n/v/d. - Patient Data Vitals - Most Recent: Last Vital Signs Temp 98.5 F 12/02/19 11:27 Pulse 82 12/02/19 11:27 Resp 12 12/02/19 11:27 BP 122/68 12/02/19 11:27 Pulse Ox 91 L 12/02/19 11:27 Weight - Most Recent: 125 lb 1.6 oz I&O - Last 24 Hours: Intake & Output 12/01/19 12/02/19 12/02/19 22:59 06:59 14:59 Intake Total 1046 Output Total 950 Balance 96 Lab Results Last 24 Hours: Laboratory Results - last 24 hr 12/01/19 12/01/19 12/01/19 Range/Units 14:36 14:45 14:45 WBC 4.25 (4.0-11.0) K/uL RBC 4.94 (4.30-5.90) M/uL Hgb 13.6 (12.0-16.0) g/dL Hct 44.1 (36.0-46.0) % MCV 89.3 (80.0-98.0) fL MCH 27.5 (27.0-32.0) pg MCHC 30.8 L (31.0-37.0) g/dL RDW Std Deviation 50.2 (28.0-62.0) fl RDW Coeff of Shaq 15 (11.0-15.0) % Plt Count 167 (150-400) K/uL MPV 9.90 (7.40-12.00) fL Neut % (Auto) 47.4 L (48.0-80.0) % Lymph % (Auto) 38.4 (16.0-40.0) % Harris % (Auto) 11.1 (0.0-15.0) % Eos % (Auto) 2.6 (0.0-7.0) % Baso % (Auto) 0.5 (0.0-1.5) % Neut # (Auto) 2.0 (1.4-5.7) K/uL Lymph # (Auto) 1.6 (0.6-2.4) K/uL Harris # (Auto) 0.5 (0.0-0.8) K/uL Eos # (Auto) 0.1 (0.0-0.7) K/uL Baso # (Auto) 0.0 (0.0-0.1) K/uL Nucleated RBC % 0.0 /100WBC Nucleated RBCs # 0 K/uL Sodium 143 (136-145) mmol/L Potassium 3.9 (3.5-5.1) mmol/L Chloride 104 (98-107) mmol/L Carbon Dioxide 29.5 (21.0-32.0) mmol/L BUN 7 (7.0-18.0) mg/dL Creatinine 0.7 (0.6-1.0) mg/dL Est Cr Clr Drug Dosing 72.52 mL/min Estimated GFR (MDRD) > 60.0 ml/min Glucose 84 (74-106) mg/dL POC Glucose (60-110) mg/dL Calcium 9.3 (8.5-10.1) mg/dL Total Bilirubin 0.8 (0.2-1.0) mg/dL AST 17 (15-37) IU/L ALT 18 (14-63) IU/L Alkaline Phosphatase 82 (46-116) U/L Total Protein 7.7 (6.4-8.2) g/dL Albumin 4.0 (3.4-5.0) g/dL Globulin 3.7 (2.6-4.0) g/dL Albumin/Globulin Ratio 1.1 (0.9-1.6) Lipase (73-393) U/L TSH 3rd Generation (0.36-3.74) uIU/mL Urine Color YELLOW Urine Appearance CLEAR Urine pH 6.0 (5.0-8.0) Ur Specific [place] >= 1.030 (1.001-1.035) Urine Protein NEGATIVE (NEGATIVE) mg/dL Urine Glucose (UA) NEGATIVE (NEGATIVE) mg/dL Urine Ketones NEGATIVE (NEGATIVE) mg/dL Urine Occult Blood NEGATIVE (NEGATIVE) Urine Nitrite NEGATIVE (NEGATIVE) Urine Bilirubin NEGATIVE (NEGATIVE) Urine Urobilinogen 0.2 (<2.0) EU/dL Ur Leukocyte Esterase TRACE H (NEGATIVE) Urine RBC 0-2 (0-2/HPF) Urine WBC 2-5 (0-5/HPF) Ur Epithelial Cells OCCASIONAL (NONE-FEW) Urine Bacteria RARE (NEGATIVE) 12/01/19 12/01/19 12/01/19 Range/Units 14:45 18:05 18:42 WBC (4.0-11.0) K/uL RBC (4.30-5.90) M/uL Hgb (12.0-16.0) g/dL Hct (36.0-46.0) % MCV (80.0-98.0) fL MCH (27.0-32.0) pg MCHC (31.0-37.0) g/dL RDW Std Deviation (28.0-62.0) fl RDW Coeff of Shaq (11.0-15.0) % Plt Count (150-400) K/uL MPV (7.40-12.00) fL Neut % (Auto) (48.0-80.0) % Lymph % (Auto) (16.0-40.0) % Harris % (Auto) (0.0-15.0) % Eos % (Auto) (0.0-7.0) % Baso % (Auto) (0.0-1.5) % Neut # (Auto) (1.4-5.7) K/uL Lymph # (Auto) (0.6-2.4) K/uL Harris # (Auto) (0.0-0.8) K/uL Eos # (Auto) (0.0-0.7) K/uL Baso # (Auto) (0.0-0.1) K/uL Nucleated RBC % /100WBC Nucleated RBCs # K/uL Sodium (136-145) mmol/L Potassium (3.5-5.1) mmol/L Chloride (98-107) mmol/L Carbon Dioxide (21.0-32.0) mmol/L BUN (7.0-18.0) mg/dL Creatinine (0.6-1.0) mg/dL Est Cr Clr Drug Dosing mL/min Estimated GFR (MDRD) ml/min Glucose (74-106) mg/dL POC Glucose 83 (60-110) mg/dL Calcium (8.5-10.1) mg/dL Total Bilirubin (0.2-1.0) mg/dL AST (15-37) IU/L ALT (14-63) IU/L Alkaline Phosphatase (46-116) U/L Total Protein (6.4-8.2) g/dL Albumin (3.4-5.0) g/dL Globulin (2.6-4.0) g/dL Albumin/Globulin Ratio (0.9-1.6) Lipase 53 L (73-393) U/L TSH 3rd Generation 1.29 (0.36-3.74) uIU/mL Urine Color Urine Appearance Urine pH (5.0-8.0) Ur Specific [place] (1.001-1.035) Urine Protein (NEGATIVE) mg/dL Urine Glucose (UA) (NEGATIVE) mg/dL Urine Ketones (NEGATIVE) mg/dL Urine Occult Blood (NEGATIVE) Urine Nitrite (NEGATIVE) Urine Bilirubin (NEGATIVE) Urine Urobilinogen (<2.0) EU/dL Ur Leukocyte Esterase (NEGATIVE) Urine RBC (0-2/HPF) Urine WBC (0-5/HPF) Ur Epithelial Cells (NONE-FEW) Urine Bacteria (NEGATIVE) 12/02/19 12/02/19 12/02/19 Range/Units 00:46 05:05 05:05 WBC 4.23 (4.0-11.0) K/uL RBC 4.40 (4.30-5.90) M/uL Hgb 12.2 (12.0-16.0) g/dL Hct 39.2 (36.0-46.0) % MCV 89.1 (80.0-98.0) fL MCH 27.7 (27.0-32.0) pg MCHC 31.1 (31.0-37.0) g/dL RDW Std Deviation 49.3 (28.0-62.0) fl RDW Coeff of Shaq 15 (11.0-15.0) % Plt Count 156 (150-400) K/uL MPV 10.20 (7.40-12.00) fL Neut % (Auto) 41.0 L (48.0-80.0) % Lymph % (Auto) 44.4 H (16.0-40.0) % Harris % (Auto) 11.3 (0.0-15.0) % Eos % (Auto) 2.8 (0.0-7.0) % Baso % (Auto) 0.5 (0.0-1.5) % Neut # (Auto) 1.7 (1.4-5.7) K/uL Lymph # (Auto) 1.9 (0.6-2.4) K/uL Harris # (Auto) 0.5 (0.0-0.8) K/uL Eos # (Auto) 0.1 (0.0-0.7) K/uL Baso # (Auto) 0.0 (0.0-0.1) K/uL Nucleated RBC % 0.0 /100WBC Nucleated RBCs # 0 K/uL Sodium 144 (136-145) mmol/L Potassium 3.6 (3.5-5.1) mmol/L Chloride 109 H (98-107) mmol/L Carbon Dioxide 27.3 (21.0-32.0) mmol/L BUN 5 L (7.0-18.0) mg/dL Creatinine 0.6 (0.6-1.0) mg/dL Est Cr Clr Drug Dosing 89.22 mL/min Estimated GFR (MDRD) > 60.0 ml/min Glucose 84 (74-106) mg/dL POC Glucose 89 (60-110) mg/dL Calcium 8.6 (8.5-10.1) mg/dL Total Bilirubin 0.9 (0.2-1.0) mg/dL AST 18 (15-37) IU/L ALT 14 (14-63) IU/L Alkaline Phosphatase 71 (46-116) U/L Total Protein 6.5 (6.4-8.2) g/dL Albumin 3.4 (3.4-5.0) g/dL Globulin 3.1 (2.6-4.0) g/dL Albumin/Globulin Ratio 1.1 (0.9-1.6) Lipase (73-393) U/L TSH 3rd Generation (0.36-3.74) uIU/mL Urine Color Urine Appearance Urine pH (5.0-8.0) Ur Specific [place] (1.001-1.035) Urine Protein (NEGATIVE) mg/dL Urine Glucose (UA) (NEGATIVE) mg/dL Urine Ketones (NEGATIVE) mg/dL Urine Occult Blood (NEGATIVE) Urine Nitrite (NEGATIVE) Urine Bilirubin (NEGATIVE) Urine Urobilinogen (<2.0) EU/dL Ur Leukocyte Esterase (NEGATIVE) Urine RBC (0-2/HPF) Urine WBC (0-5/HPF) Ur Epithelial Cells (NONE-FEW) Urine Bacteria (NEGATIVE) 12/02/19 Range/Units 07:21 WBC (4.0-11.0) K/uL RBC (4.30-5.90) M/uL Hgb (12.0-16.0) g/dL Hct (36.0-46.0) % MCV (80.0-98.0) fL MCH (27.0-32.0) pg MCHC (31.0-37.0) g/dL RDW Std Deviation (28.0-62.0) fl RDW Coeff of Shaq (11.0-15.0) % Plt Count (150-400) K/uL MPV (7.40-12.00) fL Neut % (Auto) (48.0-80.0) % Lymph % (Auto) (16.0-40.0) % Harris % (Auto) (0.0-15.0) % Eos % (Auto) (0.0-7.0) % Baso % (Auto) (0.0-1.5) % Neut # (Auto) (1.4-5.7) K/uL Lymph # (Auto) (0.6-2.4) K/uL Harris # (Auto) (0.0-0.8) K/uL Eos # (Auto) (0.0-0.7) K/uL Baso # (Auto) (0.0-0.1) K/uL Nucleated RBC % /100WBC Nucleated RBCs # K/uL Sodium (136-145) mmol/L Potassium (3.5-5.1) mmol/L Chloride (98-107) mmol/L Carbon Dioxide (21.0-32.0) mmol/L BUN (7.0-18.0) mg/dL Creatinine (0.6-1.0) mg/dL Est Cr Clr Drug Dosing mL/min Estimated GFR (MDRD) ml/min Glucose (74-106) mg/dL POC Glucose 93 (60-110) mg/dL Calcium (8.5-10.1) mg/dL Total Bilirubin (0.2-1.0) mg/dL AST (15-37) IU/L ALT (14-63) IU/L Alkaline Phosphatase (46-116) U/L Total Protein (6.4-8.2) g/dL Albumin (3.4-5.0) g/dL Globulin (2.6-4.0) g/dL Albumin/Globulin Ratio (0.9-1.6) Lipase (73-393) U/L TSH 3rd Generation (0.36-3.74) uIU/mL Urine Color Urine Appearance Urine pH (5.0-8.0) Ur Specific [place] (1.001-1.035) Urine Protein (NEGATIVE) mg/dL Urine Glucose (UA) (NEGATIVE) mg/dL Urine Ketones (NEGATIVE) mg/dL Urine Occult Blood (NEGATIVE) Urine Nitrite (NEGATIVE) Urine Bilirubin (NEGATIVE) Urine Urobilinogen (<2.0) EU/dL Ur Leukocyte Esterase (NEGATIVE) Urine RBC (0-2/HPF) Urine WBC (0-5/HPF) Ur Epithelial Cells (NONE-FEW) Urine Bacteria (NEGATIVE) Med Orders - Current: Current Medications Albuterol/Ipratropium (Combivent Respimat) 0 gm INH QID PRN PRN Reason: Shortness of Breath Budesonide (Pulmicort) 0.5 mg INH BEDTIME [facility] Last Admin: 12/01/19 22:37 Dose: 0.5 mg Budesonide/Formoterol Fumarate (Symbicort 160-4.5 Mcg) 0 gm INH BID [facility] Last Admin: 12/02/19 08:14 Dose: 1 puff Enoxaparin Sodium (Lovenox) 40 mg SUBCUT Q24H [facility] Last Admin: 12/01/19 18:45 Dose: 40 mg Dextrose/Sodium Chloride (Dextrose 5%-Normal Saline) 1,000 mls @ 100 mls/hr IV ASDIRECTED [facility] Last Admin: 12/02/19 06:18 Dose: 100 mls/hr Lorazepam (Ativan) 1 mg IVPUSH Q6H PRN PRN Reason: Anxiety Last Admin: 12/02/19 11:02 Dose: 1 mg Morphine Sulfate (Morphine) 2 mg IVPUSH Q2H PRN PRN Reason: Pain (severe 7-10) Stop: 12/02/19 18:13 Last Admin: 12/02/19 10:12 Dose: 2 mg Ondansetron HCl (Zofran) 4 mg IVPUSH Q4H PRN PRN Reason: Nausea Sodium Chloride (Saline Flush) 10 ml FLUSH ASDIRECTED PRN PRN Reason: Keep Vein Open Sodium Chloride (Saline Flush) 2.5 ml FLUSH ASDIRECTED PRN PRN Reason: Keep Vein Open Discontinued Medications Albuterol/Ipratropium (Combivent Respimat) 4 gm INH QID PRN PRN Reason: Shortness of Breath Sodium Chloride (Normal Saline) 1,000 mls @ 999 mls/hr IV STAT ONE Stop: 12/01/19 15:27 Last Admin: 12/01/19 14:58 Dose: 999 mls/hr Sodium Chloride (Normal Saline) 1,000 mls @ 125 mls/hr IV STAT ONE Stop: 12/02/19 01:23 Last Admin: 12/01/19 17:50 Dose: 125 mls/hr Sodium Chloride (Normal Saline) 1,000 mls @ 100 mls/hr IV STAT [place] Iopamidol (Isovue Multipack-370 (76%)) 66 ml IVPUSH ONETIME STA Stop: 12/01/19 16:21 Last Admin: 12/01/19 16:21 Dose: 66 ml Morphine Sulfate (Morphine) 2 mg IVPUSH ONETIME ONE Stop: 12/01/19 14:28 Last Admin: 12/01/19 14:58 Dose: 2 mg Morphine Sulfate (Morphine) 2 mg IVPUSH ONETIME ONE Stop: 12/01/19 17:22 Last Admin: 12/01/19 17:50 Dose: 2 mg Ondansetron HCl (Zofran) 4 mg IVPUSH ONETIME ONE Stop: 12/01/19 14:28 Last Admin: 12/01/19 14:58 Dose: 4 mg - Exam General: Alert, Oriented, Cooperative, No Acute Distress Lungs: Clear to Auscultation, Normal Respiratory Effort Cardiovascular: Regular Rate, Regular Rhythm GI/Abdominal Exam: Other (soft, non-distended, ttp in LUQ and LLQ, bowel sounds present.) Extremities: Normal Inspection, No Pedal Edema Sepsis Event Note - Evaluation Sepsis Screening Result: No Definite Risk - Focused Exam Vital Signs: Vital Signs Temp Pulse Resp BP Pulse Ox 12/02/19 11:27 98.5 F 82 12 122/68 91 L 12/02/19 08:00 98.1 F 84 17 118/67 93 L 12/02/19 04:00 98.6 F 84 14 131/61 96 12/02/19 00:00 97.0 F 85 16 115/63 94 L Date Exam was Performed: 12/02/19 Time Exam was Performed: 11:44 - Problem List Review Problem List Initiated/Reviewed/Updated: Yes - My Orders Last 24 Hours: My Active Orders 12/01/19 18:12 Oxygen Therapy [RC] PRN Up ad Felicity [RC] ASDIRECTED VTE/DVT Education [RC] PER UNIT ROUTINE Vital Signs [RC] Q4H Morphine 2 mg IVPUSH Q2H PRN Ondansetron [Zofran] 4 mg IVPUSH Q4H PRN Resuscitation Status Routine 12/01/19 18:18 Antiembolic Devices [RC] PER UNIT ROUTINE 12/01/19 18:30 Enoxaparin [Lovenox] 40 mg SUBCUT Q24H 12/01/19 18:33 Notify Provider Consults [RC] ASDIRECTED Consult to Physician [CONS] Routine 12/01/19 19:16 Accu Check [Blood Glucose Check, Bedside] [RC] Q6H 12/01/19 19:18 LORazepam [Ativan] 1 mg IVPUSH Q6H PRN 12/01/19 19:21 Albuterol/Ipratropium [Combivent Respimat] 0 gm INH QID PRN 12/01/19 19:30 Dextrose 5%-0.9% NaCl [Dextrose 5%-Normal Saline] 1,000 ml IV ASDIRECTED 12/01/19 21:00 Budesonide [Pulmicort] 0.5 mg INH BEDTIME Budesonide/Formoterol [Symbicort 160-4.5 MCG] 0 gm INH BID 12/01/19 Dinner Nothing per Oral Now Diet [DIET] 12/02/19 07:47 Abdomen w wo Cont [MR] Urgent - Plan Plan:: Assessment and Plan: 1. Abdominal pain secondary to small bowel obstruction: - Patient is NPO currently and IV fluids D5/NS @ 100 cc/hr with accucheks q6h. Per general surgery, cancel HIDA scan, recommended getting MRI abd w/ contrast and may advance to clear liquid diet after MRI study. Will follow-up with general surgery after MRI results for further recommendations. 2. Past medical history of COPD, anxiety and depression. 3. DVT prophylaxis: lovenox.
[2019-12-02] MEDS ORDERED: Gadobenate Dimeglumine 529 MG/ML 20 ML SDV IVPUSH STA (13:04)
--- NOTE | 2019-12-02 13:20 | PCM.CONS ---
H&P History of Present Illness - General Date of Service: 12/02/19 Admit Problem/Dx: Admission Diagnosis/Problem Admission Diagnosis/Problem Small bowel obstruction Source of Information: Patient History Limitations: Reports: No Limitations - History of Present Illness Initial Comments - Free Text/Narative: Patient is a 59-year-old female who presents with abdominal pain. In 2018 she had perforated sigmoid diverticulitis and underwent emergent exploratory laparoscopy with sigmoidectomy and end colostomy. This was complicated by postoperative sepsis and a long ICU stay. She ended up developing a stomal hernia which was repaired and taken down in September of this year. Since procedure she's had chronic abdominal pain. This is made it difficult for her to eat a regular diet. Eating certain foods makes abdominal pain worse. She takes MiraLAX every other day and Colace daily. She states that normally her bowel movements are soft and ribbonlike. Recently they become more small and infrequent. This past week she's had crampy abdominal pain and has felt bloated. She is no longer having bowel movements but is still passing gas. She tried eating something yesterday and had severe upper abdominal pain. She presented the emergency room. Her vital signs are stable. Lab work was normal. CT scan of the abdomen pelvis showed dilated loops of small bowel and large amount of stool within the colon. She is admitted to the medicine team and kept nothing by mouth with IV fluids and oral pain control. This morning she feels slightly better and less distended. She still passing gas. Other finding of her CT showed intra-hepatic biliary duct dilation. She says her gallbladder. She underwent an ultrasound proximally one month ago which was normal. No further workup has been done. All of her LFTs are normal. left abd Pain Score (Numeric/FACES): 7 - Related Data Allergies/Adverse Reactions: Allergies Allergy/AdvReac Type Severity Reaction Status Date / Time No Known Allergies Allergy Verified 12/01/19 19:31 Home Medications: Home Meds ALPRAZolam [Xanax] 2 mg PO TID PRN 05/29/18 [History] Albuterol/Ipratropium [Combivent Respimat] 1 puff IH QID PRN 05/29/18 [History] Budesonide [Pulmicort] 1 dose INH BEDTIME 11/04/18 [History] Fluticasone Propionate [Flonase] 2 puff NASBOTH DAILY 11/04/18 [History] busPIRone [Buspar] 15 mg PO BID 11/04/18 [History] Ondansetron [Zofran ODT] 4 mg PO Q6H PRN 08/04/19 [History] Rosuvastatin [Crestor] 5 mg PO BEDTIME 08/04/19 [History] Budesonide/Formoterol Fumarate [Symbicort 160-4.5 Mcg Inhaler] 6 gm IH BID 30 Days #1 hfa.aer.ad 08/06/19 [Rx] Iron Polysaccharides Complex [Ferrex 150] 150 mg PO DAILY #30 cap 08/06/19 [Rx] Docusate Sodium [Colace] 100 mg PO BID 09/18/19 [History] Past Medical History HEENT History: Reports: None Cardiovascular History: Reports: Heart Murmur 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 Respiratory History: Reports: COPD, Other (See Below) Other Respiratory History: emphsyema Gastrointestinal History: Reports: Bowel Obstruction Other Gastrointestinal History: Bowel obstruction 2010, 2018, perforated colon in 2018 Genitourinary History: Reports: None [employer] History: Reports: Musculoskeletal History: Reports: Arthritis Neurological History: Reports: None Psychiatric History: Reports: Anxiety, Depression, Panic Attack Endocrine/Metabolic History: Reports: None Hematologic History: Reports: Blood Transfusion(s) Immunologic History: Reports: None Oncologic (Cancer) History: Reports: None Dermatologic History: Reports: None - Infectious Disease History Infectious Disease History: Reports: Chicken Pox, Measles, Mumps - Past Surgical History Head Surgeries/Procedures: Reports: None HEENT Surgical History: Reports: Tonsillectomy Cardiovascular Surgical History: Reports: Cardiac Ablation Other Cardiovascular Surgeries/Procedures: Cardiac ablation in 1991 Respiratory Surgical History: Reports: None GI Surgical History: Reports: Appendectomy, Colonoscopy, Colostomy, Other (See Below) Other GI Surgeries/Procedures: Colostomy: reversed Female Surgical History: Reports: Section, Tubal Ligation Endocrine Surgical History: Reports: None Neurological Surgical History: Reports: None Musculoskeletal Surgical History: Reports: None Oncologic Surgical History: Reports: None Dermatological Surgical History: Reports: None Social & Family History - Family History Family Medical History: Noncontributory - Tobacco Use Smoking Status *Q: Current Status Unknown Years of Tobacco use: 30 Packs/Tins Daily: 1 Used Tobacco, but Quit: Yes Month/Year Tobacco Last Used: 2014 - Caffeine Use Caffeine Use: Reports: Coffee Other Caffeine Use: 3cups/day Caffeine Use Comment: 1/2 cup each day - Recreational Drug Use Recreational Drug Use: No H&P Review of Systems - Review of Systems: Review Of Systems: Comprehensive ROS is negative, except as noted in HPI. Exam - Exam Exam: See Below - Vital Signs Vital Signs: Last Vital Signs Temp 36.9 C 12/02/19 11:27 Pulse 82 12/02/19 11:27 Resp 12 12/02/19 11:27 BP 122/68 12/02/19 11:27 Pulse Ox 91 L 12/02/19 11:27 Weight: 56.744 kg - Exam General: Alert, Oriented HEENT: Conjunctiva Clear, Mucosa Moist & [place], Posterior Pharynx Clear Neck: Supple, Trachea Midline Lungs: Clear to Auscultation, Normal Respiratory Effort Cardiovascular: Regular Rate, Regular Rhythm GI/Abdominal Exam: Soft, Non-Tender, No Distention, Other (Well-healed lower midline scar and ostomy site scar.). No: Guarding, Rigid, Rebound - Patient Data Lab Results Last 24 hrs: Laboratory Results - last 24 hr 12/01/19 12/01/19 12/01/19 Range/Units 14:36 14:45 14:45 WBC 4.25 (4.0-11.0) K/uL RBC 4.94 (4.30-5.90) M/uL Hgb 13.6 (12.0-16.0) g/dL Hct 44.1 (36.0-46.0) % MCV 89.3 (80.0-98.0) fL MCH 27.5 (27.0-32.0) pg MCHC 30.8 L (31.0-37.0) g/dL RDW Std Deviation 50.2 (28.0-62.0) fl RDW Coeff of Shaq 15 (11.0-15.0) % Plt Count 167 (150-400) K/uL MPV 9.90 (7.40-12.00) fL Neut % (Auto) 47.4 L (48.0-80.0) % Lymph % (Auto) 38.4 (16.0-40.0) % Jones % (Auto) 11.1 (0.0-15.0) % Eos % (Auto) 2.6 (0.0-7.0) % Baso % (Auto) 0.5 (0.0-1.5) % Neut # (Auto) 2.0 (1.4-5.7) K/uL Lymph # (Auto) 1.6 (0.6-2.4) K/uL Jones # (Auto) 0.5 (0.0-0.8) K/uL Eos # (Auto) 0.1 (0.0-0.7) K/uL Baso # (Auto) 0.0 (0.0-0.1) K/uL Nucleated RBC % 0.0 /100WBC Nucleated RBCs # 0 K/uL Sodium 143 (136-145) mmol/L Potassium 3.9 (3.5-5.1) mmol/L Chloride 104 (98-107) mmol/L Carbon Dioxide 29.5 (21.0-32.0) mmol/L BUN 7 (7.0-18.0) mg/dL Creatinine 0.7 (0.6-1.0) mg/dL Est Cr Clr Drug Dosing 72.52 mL/min Estimated GFR (MDRD) > 60.0 ml/min Glucose 84 (74-106) mg/dL POC Glucose (60-110) mg/dL Calcium 9.3 (8.5-10.1) mg/dL Total Bilirubin 0.8 (0.2-1.0) mg/dL AST 17 (15-37) IU/L ALT 18 (14-63) IU/L Alkaline Phosphatase 82 (46-116) U/L Total Protein 7.7 (6.4-8.2) g/dL Albumin 4.0 (3.4-5.0) g/dL Globulin 3.7 (2.6-4.0) g/dL Albumin/Globulin Ratio 1.1 (0.9-1.6) Lipase (73-393) U/L TSH 3rd Generation (0.36-3.74) uIU/mL Urine Color YELLOW Urine Appearance CLEAR Urine pH 6.0 (5.0-8.0) Ur Specific [place] >= 1.030 (1.001-1.035) Urine Protein NEGATIVE (NEGATIVE) mg/dL Urine Glucose (UA) NEGATIVE (NEGATIVE) mg/dL Urine Ketones NEGATIVE (NEGATIVE) mg/dL Urine Occult Blood NEGATIVE (NEGATIVE) Urine Nitrite NEGATIVE (NEGATIVE) Urine Bilirubin NEGATIVE (NEGATIVE) Urine Urobilinogen 0.2 (<2.0) EU/dL Ur Leukocyte Esterase TRACE H (NEGATIVE) Urine RBC 0-2 (0-2/HPF) Urine WBC 2-5 (0-5/HPF) Ur Epithelial Cells OCCASIONAL (NONE-FEW) Urine Bacteria RARE (NEGATIVE) 12/01/19 12/01/19 12/01/19 Range/Units 14:45 18:05 18:42 WBC (4.0-11.0) K/uL RBC (4.30-5.90) M/uL Hgb (12.0-16.0) g/dL Hct (36.0-46.0) % MCV (80.0-98.0) fL MCH (27.0-32.0) pg MCHC (31.0-37.0) g/dL RDW Std Deviation (28.0-62.0) fl RDW Coeff of Shaq (11.0-15.0) % Plt Count (150-400) K/uL MPV (7.40-12.00) fL Neut % (Auto) (48.0-80.0) % Lymph % (Auto) (16.0-40.0) % Jones % (Auto) (0.0-15.0) % Eos % (Auto) (0.0-7.0) % Baso % (Auto) (0.0-1.5) % Neut # (Auto) (1.4-5.7) K/uL Lymph # (Auto) (0.6-2.4) K/uL Jones # (Auto) (0.0-0.8) K/uL Eos # (Auto) (0.0-0.7) K/uL Baso # (Auto) (0.0-0.1) K/uL Nucleated RBC % /100WBC Nucleated RBCs # K/uL Sodium (136-145) mmol/L Potassium (3.5-5.1) mmol/L Chloride (98-107) mmol/L Carbon Dioxide (21.0-32.0) mmol/L BUN (7.0-18.0) mg/dL Creatinine (0.6-1.0) mg/dL Est Cr Clr Drug Dosing mL/min Estimated GFR (MDRD) ml/min Glucose (74-106) mg/dL POC Glucose 83 (60-110) mg/dL Calcium (8.5-10.1) mg/dL Total Bilirubin (0.2-1.0) mg/dL AST (15-37) IU/L ALT (14-63) IU/L Alkaline Phosphatase (46-116) U/L Total Protein (6.4-8.2) g/dL Albumin (3.4-5.0) g/dL Globulin (2.6-4.0) g/dL Albumin/Globulin Ratio (0.9-1.6) Lipase 53 L (73-393) U/L TSH 3rd Generation 1.29 (0.36-3.74) uIU/mL Urine Color Urine Appearance Urine pH (5.0-8.0) Ur Specific [place] (1.001-1.035) Urine Protein (NEGATIVE) mg/dL Urine Glucose (UA) (NEGATIVE) mg/dL Urine Ketones (NEGATIVE) mg/dL Urine Occult Blood (NEGATIVE) Urine Nitrite (NEGATIVE) Urine Bilirubin (NEGATIVE) Urine Urobilinogen (<2.0) EU/dL Ur Leukocyte Esterase (NEGATIVE) Urine RBC (0-2/HPF) Urine WBC (0-5/HPF) Ur Epithelial Cells (NONE-FEW) Urine Bacteria (NEGATIVE) 12/02/19 12/02/19 12/02/19 Range/Units 00:46 05:05 05:05 WBC 4.23 (4.0-11.0) K/uL RBC 4.40 (4.30-5.90) M/uL Hgb 12.2 (12.0-16.0) g/dL Hct 39.2 (36.0-46.0) % MCV 89.1 (80.0-98.0) fL MCH 27.7 (27.0-32.0) pg MCHC 31.1 (31.0-37.0) g/dL RDW Std Deviation 49.3 (28.0-62.0) fl RDW Coeff of Shaq 15 (11.0-15.0) % Plt Count 156 (150-400) K/uL MPV 10.20 (7.40-12.00) fL Neut % (Auto) 41.0 L (48.0-80.0) % Lymph % (Auto) 44.4 H (16.0-40.0) % Jones % (Auto) 11.3 (0.0-15.0) % Eos % (Auto) 2.8 (0.0-7.0) % Baso % (Auto) 0.5 (0.0-1.5) % Neut # (Auto) 1.7 (1.4-5.7) K/uL Lymph # (Auto) 1.9 (0.6-2.4) K/uL Jones # (Auto) 0.5 (0.0-0.8) K/uL Eos # (Auto) 0.1 (0.0-0.7) K/uL Baso # (Auto) 0.0 (0.0-0.1) K/uL Nucleated RBC % 0.0 /100WBC Nucleated RBCs # 0 K/uL Sodium 144 (136-145) mmol/L Potassium 3.6 (3.5-5.1) mmol/L Chloride 109 H (98-107) mmol/L Carbon Dioxide 27.3 (21.0-32.0) mmol/L BUN 5 L (7.0-18.0) mg/dL Creatinine 0.6 (0.6-1.0) mg/dL Est Cr Clr Drug Dosing 89.22 mL/min Estimated GFR (MDRD) > 60.0 ml/min Glucose 84 (74-106) mg/dL POC Glucose 89 (60-110) mg/dL Calcium 8.6 (8.5-10.1) mg/dL Total Bilirubin 0.9 (0.2-1.0) mg/dL AST 18 (15-37) IU/L ALT 14 (14-63) IU/L Alkaline Phosphatase 71 (46-116) U/L Total Protein 6.5 (6.4-8.2) g/dL Albumin 3.4 (3.4-5.0) g/dL Globulin 3.1 (2.6-4.0) g/dL Albumin/Globulin Ratio 1.1 (0.9-1.6) Lipase (73-393) U/L TSH 3rd Generation (0.36-3.74) uIU/mL Urine Color Urine Appearance Urine pH (5.0-8.0) Ur Specific [place] (1.001-1.035) Urine Protein (NEGATIVE) mg/dL Urine Glucose (UA) (NEGATIVE) mg/dL Urine Ketones (NEGATIVE) mg/dL Urine Occult Blood (NEGATIVE) Urine Nitrite (NEGATIVE) Urine Bilirubin (NEGATIVE) Urine Urobilinogen (<2.0) EU/dL Ur Leukocyte Esterase (NEGATIVE) Urine RBC (0-2/HPF) Urine WBC (0-5/HPF) Ur Epithelial Cells (NONE-FEW) Urine Bacteria (NEGATIVE) 12/02/19 Range/Units 07:21 WBC (4.0-11.0) K/uL RBC (4.30-5.90) M/uL Hgb (12.0-16.0) g/dL Hct (36.0-46.0) % MCV (80.0-98.0) fL MCH (27.0-32.0) pg MCHC (31.0-37.0) g/dL RDW Std Deviation (28.0-62.0) fl RDW Coeff of Shaq (11.0-15.0) % Plt Count (150-400) K/uL MPV (7.40-12.00) fL Neut % (Auto) (48.0-80.0) % Lymph % (Auto) (16.0-40.0) % Jones % (Auto) (0.0-15.0) % Eos % (Auto) (0.0-7.0) % Baso % (Auto) (0.0-1.5) % Neut # (Auto) (1.4-5.7) K/uL Lymph # (Auto) (0.6-2.4) K/uL Jones # (Auto) (0.0-0.8) K/uL Eos # (Auto) (0.0-0.7) K/uL Baso # (Auto) (0.0-0.1) K/uL Nucleated RBC % /100WBC Nucleated RBCs # K/uL Sodium (136-145) mmol/L Potassium (3.5-5.1) mmol/L Chloride (98-107) mmol/L Carbon Dioxide (21.0-32.0) mmol/L BUN (7.0-18.0) mg/dL Creatinine (0.6-1.0) mg/dL Est Cr Clr Drug Dosing mL/min Estimated GFR (MDRD) ml/min Glucose (74-106) mg/dL POC Glucose 93 (60-110) mg/dL Calcium (8.5-10.1) mg/dL Total Bilirubin (0.2-1.0) mg/dL AST (15-37) IU/L ALT (14-63) IU/L Alkaline Phosphatase (46-116) U/L Total Protein (6.4-8.2) g/dL Albumin (3.4-5.0) g/dL Globulin (2.6-4.0) g/dL Albumin/Globulin Ratio (0.9-1.6) Lipase (73-393) U/L TSH 3rd Generation (0.36-3.74) uIU/mL Urine Color Urine Appearance Urine pH (5.0-8.0) Ur Specific [place] (1.001-1.035) Urine Protein (NEGATIVE) mg/dL Urine Glucose (UA) (NEGATIVE) mg/dL Urine Ketones (NEGATIVE) mg/dL Urine Occult Blood (NEGATIVE) Urine Nitrite (NEGATIVE) Urine Bilirubin (NEGATIVE) Urine Urobilinogen (<2.0) EU/dL Ur Leukocyte Esterase (NEGATIVE) Urine RBC (0-2/HPF) Urine WBC (0-5/HPF) Ur Epithelial Cells (NONE-FEW) Urine Bacteria (NEGATIVE) Result Diagrams: 12/02/19 05:05 12/02/19 05:05 Sepsis Event Note - Evaluation Sepsis Screening Result: No Definite Risk - Focused Exam Vital Signs: Vital Signs Temp Pulse Resp BP Pulse Ox 12/02/19 11:27 36.9 C 82 12 122/68 91 L 12/02/19 08:00 36.7 C 84 17 118/67 93 L 12/02/19 04:00 37.0 C 84 14 131/61 96 Date Exam was Performed: 12/02/19 Time Exam was Performed: 13:12 Consult PN Assessment/Plan Procedures: Procedures AIRWAY INHALATION TREATMENT (11/07/18) ANTINUCLEAR ANTIBODIES (10/25/16) ASSAY OF AMYLASE (07/14/17) ASSAY OF LACTIC ACID (09/18/19) ASSAY OF LIPASE (07/11/19) ASSAY OF MAGNESIUM (09/24/19) ASSAY OF PHOSPHORUS (09/24/19) ASSAY OF TROPONIN QUANT (05/29/18) BLOOD CULTURE FOR BACTERIA (07/11/19) BLOOD GASES ANY COMBINATION (11/07/18) COMPLETE CBC W/AUTO DIFF WBC (09/24/19) COMPREHEN METABOLIC PANEL (09/24/19) CT ABD & PELV W/CONTRAST (09/18/19) CT ABD & PELVIS W/O CONTRAST (09/24/19) CULTURE AEROBIC IDENTIFY (11/07/18) CULTURE OTHR SPECIMN AEROBIC (11/07/18) ECHO EXAM OF ABDOMEN (10/10/17) ELECTROCARDIOGRAM TRACING (05/29/18) EMERGENCY DEPT VISIT (09/24/19) EMERGENCY DEPT VISIT (05/29/18) GLUCOSE BLOOD TEST (09/24/19) HEPATITIS C AB TEST (03/04/19) HYDRATE IV INFUSION ADD-ON (09/24/19) IIV4 VACC NO PRSV 0.5 ML IM (05/29/18) INFLUENZA ASSAY W/OPTIC (09/18/19) LIPID PANEL (05/31/19) METABOLIC PANEL TOTAL CA (09/24/19) MICROBE SUSCEPTIBLE JEFFRY (11/07/18) PPSV23 VACC 2 YRS+ SUBQ/IM (05/29/18) RBC SED RATE AUTOMATED (10/25/16) RHEUMATOID FACTOR TEST QUAL (10/25/16) ROUTINE VENIPUNCTURE (09/24/19) SMEAR GRAM STAIN (11/07/18) THER/PROPH/DIAG INJ IV PUSH (09/24/19) THER/PROPH/DIAG INJ SC/IM (09/24/19) THER/PROPH/DIAG IV INF ADDON (05/29/18) THER/PROPH/DIAG IV INF INIT (07/11/19) TX/PRO/DX INJ NEW DRUG ADDON (09/24/19) TX/PRO/DX INJ SAME DRUG ACCOUNTING OFFICE MANAGER (09/24/19) URINALYSIS AUTO W/O SCOPE (07/11/19) URINALYSIS AUTO W/SCOPE (09/24/19) URINE CULTURE/COLONY COUNT (05/29/18) WITHDRAWAL OF ARTERIAL BLOOD (11/07/18) X-RAY EXAM ABDOMEN 1 VIEW (10/27/17) X-RAY EXAM CHEST 1 VIEW (11/07/18) X-RAY XM COLON 2CNTRST STD (11/11/17) X-RAY XM UPR GI TRC 1CNTRST (10/17/17) (1) Small bowel obstruction SNOMED Code(s): 577545546 Code(s): K56.609 - UNSP INTESTNL OBST, UNSP TO PARTIAL VERSUS COMPLETE OBST Current Visit: Yes Problem List Initiated/Reviewed/Updated: Yes Plan: I discussed her case with the primary team. To better evaluate her intrahepatic bile duct dilation I recommended an abdominal MRI with and without contrast. This will help us better define what may be causing the dilation both intra-and extrahepatic. After this can advance diet to clear liquids. Would stick to this for the day. If this is tolerated with start a bowel regiment with MiraLAX, fiber supplement, and Dulcolax or senna. She may benefit from having an enema. Will continue to follow the patient and will follow-up on the results of her MRI. The patient and I discussed visiting with a rose grading supervisor and her colorectal surgeon upon discharge to discuss her alternating bowel habits as well as her chronic abdominal pain.
[2019-12-02] MEDS: Ondansetron 4 MG/2 ML SDV IVPUSH PRN (15:48)
[2019-12-02] MEDS: Enoxaparin 40 MG/0.4 ML Syringe SUBCUT SCH (17:34)
[2019-12-02] MEDS: Budesonide 0.5 MG/2 ML Neb Susp INH SCH (21:14)
[2019-12-03] MEDS: LORazepam 2 MG/ML SDV IVPUSH PRN ×2 (01:24→08:17)
[2019-12-03] MEDS: Dextrose 5%-0.9% NaCl 1,000 ML IV SCH ×3 (01:29→21:20)
[2019-12-03] MEDS: Morphine 2 MG/ML Syringe IVPUSH PRN ×3 (04:20→10:00)
[2019-12-03] MEDS: BUDESONIDE INH SCH ×3 (04:23→21:22)
[2019-12-03] MEDS: FORMOTEROL INH SCH ×3 (04:23→21:22)
[2019-12-03 06:02] LABS: BLOOD UREA NITROGEN,BUN 3 mg/dL (7.0-18.0); CARBON DIOXIDE,CO2 26.9 mmol/L (21.0-32.0); CHLORIDE,CL 109 mmol/L (98-107); GLUCOSE RANDOM 101 mg/dL (74-106); POTASSIUM,K 3.3 mmol/L (3.5-5.1); SODIUM,NA 143 mmol/L (136-145)
--- NOTE | 2019-12-03 06:49 | MR ---
MRI abdomen (without and with intravenous contrast) Technique: Various sequences were obtained in axial and coronal planes which include postcontrast images and cholangiogram study. Comparison: Prior CT abdomen and pelvis study of 12/01/19. Findings: Gallbladder shows no discrete filling defects to indicate gallstones. Common bile duct dilated at 8 mm without evidence of choledocholithiasis. This finding is stable from previous exams. No parenchymal abnormality appreciated within the liver. Spleen appears normal. Cysts are noted within the kidneys. No abnormal enhancement is seen. Pancreas shows no discrete abnormality. Adrenal glands show no abnormality. Increased stool is noted throughout the colon. Previous small bowel dilatation seen on CT exam appears less prominent on the MRI. Aorta shows no aneurysm. Impression: 1. Decreased small bowel dilatation on this MRI study when compared to prior CT exam. If patient continues to have abdominal symptoms, recommend repeat CT exam with IV and oral contrast. 2. Slightly dilated CBD without evidence of choledocholithiasis. This dilatation is stable from prior study and may represent a minimal stenosis within the distal CBD which is chronic. 3. Cysts within both kidneys. Diagnostic code #3 This report was dictated in [facility]
--- NOTE | 2019-12-03 07:36 | PCM.CONSN ---
- General Info Date of Service: 12/03/19 Subjective Update: Patients abdomen feels better today. Still having abdominal pain, but less. Passing more gas. No BM yet. Vitals stable. No acute events overnight. - Review of Systems General: Reports: No Symptoms HEENT: Reports: No Symptoms Pulmonary: Reports: No Symptoms Cardiovascular: Reports: No Symptoms Gastrointestinal: Reports: Abdominal Pain, Flatus - Patient Data Vitals - Most Recent: Last Vital Signs Temp 36.5 C 12/03/19 04:23 Pulse 80 12/03/19 04:23 Resp 16 12/03/19 04:23 BP 131/74 12/03/19 04:23 Pulse Ox 92 L 12/03/19 04:23 Weight - Most Recent: 56.744 kg I&O - Last 24 Hours: Intake & Output 12/02/19 12/03/19 12/03/19 22:59 06:59 14:59 Intake Total 997 1988 Output Total 780 1900 Balance 217 88 Lab Results Last 24 Hours: Laboratory Results - last 24 hr 12/02/19 12/02/19 12/02/19 Range/Units 07:21 13:57 23:44 WBC (4.0-11.0) K/uL RBC (4.30-5.90) M/uL Hgb (12.0-16.0) g/dL Hct (36.0-46.0) % MCV (80.0-98.0) fL MCH (27.0-32.0) pg MCHC (31.0-37.0) g/dL RDW Std Deviation (28.0-62.0) fl RDW Coeff of Shaq (11.0-15.0) % Plt Count (150-400) K/uL MPV (7.40-12.00) fL Neut % (Auto) (48.0-80.0) % Lymph % (Auto) (16.0-40.0) % [place] % (Auto) (0.0-15.0) % Eos % (Auto) (0.0-7.0) % Baso % (Auto) (0.0-1.5) % Neut # (Auto) (1.4-5.7) K/uL Lymph # (Auto) (0.6-2.4) K/uL [place] # (Auto) (0.0-0.8) K/uL Eos # (Auto) (0.0-0.7) K/uL Baso # (Auto) (0.0-0.1) K/uL Nucleated RBC % /100WBC Nucleated RBCs # K/uL Sodium (136-145) mmol/L Potassium (3.5-5.1) mmol/L Chloride (98-107) mmol/L Carbon Dioxide (21.0-32.0) mmol/L BUN (7.0-18.0) mg/dL Creatinine (0.6-1.0) mg/dL Est Cr Clr Drug Dosing mL/min Estimated GFR (MDRD) ml/min Glucose (74-106) mg/dL POC Glucose 93 86 98 (60-110) mg/dL Calcium (8.5-10.1) mg/dL Total Bilirubin (0.2-1.0) mg/dL AST (15-37) IU/L ALT (14-63) IU/L Alkaline Phosphatase (46-116) U/L Total Protein (6.4-8.2) g/dL Albumin (3.4-5.0) g/dL Globulin (2.6-4.0) g/dL Albumin/Globulin Ratio (0.9-1.6) 12/03/19 12/03/19 12/03/19 Range/Units 04:28 05:18 05:18 WBC 3.38 L (4.0-11.0) K/uL RBC 4.22 L (4.30-5.90) M/uL Hgb 11.6 L (12.0-16.0) g/dL Hct 36.9 (36.0-46.0) % MCV 87.4 (80.0-98.0) fL MCH 27.5 (27.0-32.0) pg MCHC 31.4 (31.0-37.0) g/dL RDW Std Deviation 47.8 (28.0-62.0) fl RDW Coeff of Shaq 15 (11.0-15.0) % Plt Count 142 L (150-400) K/uL MPV 10.00 (7.40-12.00) fL Neut % (Auto) 49.7 (48.0-80.0) % Lymph % (Auto) 34.9 (16.0-40.0) % [place] % (Auto) 12.7 (0.0-15.0) % Eos % (Auto) 2.4 (0.0-7.0) % Baso % (Auto) 0.3 (0.0-1.5) % Neut # (Auto) 1.7 (1.4-5.7) K/uL Lymph # (Auto) 1.2 (0.6-2.4) K/uL [place] # (Auto) 0.4 (0.0-0.8) K/uL Eos # (Auto) 0.1 (0.0-0.7) K/uL Baso # (Auto) 0.0 (0.0-0.1) K/uL Nucleated RBC % 0.0 /100WBC Nucleated RBCs # 0 K/uL Sodium 143 (136-145) mmol/L Potassium 3.3 L (3.5-5.1) mmol/L Chloride 109 H (98-107) mmol/L Carbon Dioxide 26.9 (21.0-32.0) mmol/L BUN 3 L (7.0-18.0) mg/dL Creatinine 0.5 L (0.6-1.0) mg/dL Est Cr Clr Drug Dosing 105.84 mL/min Estimated GFR (MDRD) > 60.0 ml/min Glucose 101 (74-106) mg/dL POC Glucose 87 (60-110) mg/dL Calcium 8.3 L (8.5-10.1) mg/dL Total Bilirubin 1.1 H (0.2-1.0) mg/dL AST 15 (15-37) IU/L ALT 15 (14-63) IU/L Alkaline Phosphatase 63 (46-116) U/L Total Protein 6.0 L (6.4-8.2) g/dL Albumin 3.1 L (3.4-5.0) g/dL Globulin 2.9 (2.6-4.0) g/dL Albumin/Globulin Ratio 1.1 (0.9-1.6) Med Orders - Current: Current Medications Albuterol/Ipratropium (Combivent Respimat) 0 gm INH QID PRN PRN Reason: Shortness of Breath Budesonide (Pulmicort) 0.5 mg INH BEDTIME CLARA Last Admin: 12/02/19 21:14 Dose: 0.5 mg Budesonide/Formoterol Fumarate (Symbicort 160-4.5 Mcg) 0 gm INH BID CLARA Last Admin: 12/03/19 04:23 Dose: Not Given Enoxaparin Sodium (Lovenox) 40 mg SUBCUT Q24H CLARA Last Admin: 12/02/19 17:34 Dose: 40 mg Dextrose/Sodium Chloride (Dextrose 5%-Normal Saline) 1,000 mls @ 100 mls/hr IV ASDIRECTED CLARA Last Admin: 12/03/19 01:29 Dose: 100 mls/hr Lorazepam (Ativan) 1 mg IVPUSH Q6H PRN PRN Reason: Anxiety Last Admin: 12/03/19 01:24 Dose: 1 mg Morphine Sulfate (Morphine) 2 mg IVPUSH Q2H PRN PRN Reason: Pain (severe 7-10) Last Admin: 12/03/19 07:30 Dose: 2 mg Ondansetron HCl (Zofran) 4 mg IVPUSH Q4H PRN PRN Reason: Nausea Last Admin: 12/02/19 15:48 Dose: 4 mg Sodium Chloride (Saline Flush) 10 ml FLUSH ASDIRECTED PRN PRN Reason: Keep Vein Open Sodium Chloride (Saline Flush) 2.5 ml FLUSH ASDIRECTED PRN PRN Reason: Keep Vein Open Discontinued Medications Albuterol/Ipratropium (Combivent Respimat) 4 gm INH QID PRN PRN Reason: Shortness of Breath Gadobenate Dimeglumine (Multihance) 10 ml IVPUSH ONETIME STA Stop: 12/02/19 13:05 Last Admin: 12/02/19 13:05 Dose: 10 ml Sodium Chloride (Normal Saline) 1,000 mls @ 999 mls/hr IV STAT ONE Stop: 12/01/19 15:27 Last Admin: 12/01/19 14:58 Dose: 999 mls/hr Sodium Chloride (Normal Saline) 1,000 mls @ 125 mls/hr IV STAT ONE Stop: 12/02/19 01:23 Last Admin: 12/01/19 17:50 Dose: 125 mls/hr Sodium Chloride (Normal Saline) 1,000 mls @ 100 mls/hr IV STAT CLARA Iopamidol (Isovue Multipack-370 (76%)) 66 ml IVPUSH ONETIME STA Stop: 12/01/19 16:21 Last Admin: 12/01/19 16:21 Dose: 66 ml Morphine Sulfate (Morphine) 2 mg IVPUSH ONETIME ONE Stop: 12/01/19 14:28 Last Admin: 12/01/19 14:58 Dose: 2 mg Morphine Sulfate (Morphine) 2 mg IVPUSH ONETIME ONE Stop: 12/01/19 17:22 Last Admin: 12/01/19 17:50 Dose: 2 mg Morphine Sulfate (Morphine) 2 mg IVPUSH Q2H PRN PRN Reason: Pain (severe 7-10) Stop: 12/02/19 18:13 Last Admin: 12/02/19 17:29 Dose: 2 mg Ondansetron HCl (Zofran) 4 mg IVPUSH ONETIME ONE Stop: 12/01/19 14:28 Last Admin: 12/01/19 14:58 Dose: 4 mg - Exam General: Alert, Oriented, Cooperative, No Acute Distress HEENT: Pupils Equal, Pupils Reactive, Mucous Membr. Moist/[place] Lungs: Normal Respiratory Effort Cardiovascular: Regular Rate GI/Abdominal Exam: Soft, Non-Tender, No Distention, No Mass Extremities: Normal Inspection Sepsis Event Note - Evaluation Sepsis Screening Result: No Definite Risk - Focused Exam Vital Signs: Vital Signs Temp Pulse Resp BP Pulse Ox 12/03/19 04:23 36.5 C 80 16 131/74 92 L 12/02/19 23:25 36.6 C 85 16 131/65 91 L Date Exam was Performed: 12/03/19 Time Exam was Performed: 07:32 Consult PN Assessment/Plan Procedures: Procedures AIRWAY INHALATION TREATMENT (11/07/18) ANTINUCLEAR ANTIBODIES (10/25/16) ASSAY OF AMYLASE (07/14/17) ASSAY OF LACTIC ACID (09/18/19) ASSAY OF LIPASE (07/11/19) ASSAY OF MAGNESIUM (09/24/19) ASSAY OF PHOSPHORUS (09/24/19) ASSAY OF TROPONIN QUANT (05/29/18) BLOOD CULTURE FOR BACTERIA (07/11/19) BLOOD GASES ANY COMBINATION (11/07/18) COMPLETE CBC W/AUTO DIFF WBC (09/24/19) COMPREHEN METABOLIC PANEL (09/24/19) CT ABD & PELV W/CONTRAST (09/18/19) CT ABD & PELVIS W/O CONTRAST (09/24/19) CULTURE AEROBIC IDENTIFY (11/07/18) CULTURE OTHR SPECIMN AEROBIC (11/07/18) ECHO EXAM OF ABDOMEN (10/10/17) ELECTROCARDIOGRAM TRACING (05/29/18) EMERGENCY DEPT VISIT (09/24/19) EMERGENCY DEPT VISIT (05/29/18) GLUCOSE BLOOD TEST (09/24/19) HEPATITIS C AB TEST (03/04/19) HYDRATE IV INFUSION ADD-ON (09/24/19) IIV4 VACC NO PRSV 0.5 ML IM (05/29/18) INFLUENZA ASSAY W/OPTIC (09/18/19) LIPID PANEL (05/31/19) METABOLIC PANEL TOTAL CA (09/24/19) MICROBE SUSCEPTIBLE JEFFRY (11/07/18) PPSV23 VACC 2 YRS+ SUBQ/IM (05/29/18) RBC SED RATE AUTOMATED (10/25/16) RHEUMATOID FACTOR TEST QUAL (10/25/16) ROUTINE VENIPUNCTURE (09/24/19) SMEAR GRAM STAIN (11/07/18) THER/PROPH/DIAG INJ IV PUSH (09/24/19) THER/PROPH/DIAG INJ SC/IM (09/24/19) THER/PROPH/DIAG IV INF ADDON (05/29/18) THER/PROPH/DIAG IV INF INIT (07/11/19) TX/PRO/DX INJ NEW DRUG ADDON (09/24/19) TX/PRO/DX INJ SAME DRUG PNEUMATIC PRESS HAND (09/24/19) URINALYSIS AUTO W/O SCOPE (07/11/19) URINALYSIS AUTO W/SCOPE (09/24/19) URINE CULTURE/COLONY COUNT (05/29/18) WITHDRAWAL OF ARTERIAL BLOOD (11/07/18) X-RAY EXAM ABDOMEN 1 VIEW (10/27/17) X-RAY EXAM CHEST 1 VIEW (11/07/18) X-RAY XM COLON 2CNTRST STD (11/11/17) X-RAY XM UPR GI TRC 1CNTRST (10/17/17) (1) Small bowel obstruction SNOMED Code(s): 113056424 Code(s): K56.609 - UNSP INTESTNL OBST, UNSP TO PARTIAL VERSUS COMPLETE OBST Current Visit: Yes Problem List Initiated/Reviewed/Updated: Yes Plan: Patient's MRI from yesterday shows improved bowel distension. She has no evidence on MRI of an obstructing mass or cholelithiasis or choledocholithiasis. The radiologist felt she may have a chronic stricture in the distal common bile duct. I would keep patient on clear liquid diet until she has a bowel movement. The patient is asking about adding Colace to her bowel regimen to try and produce a bowel movement. I'm okay with this or any other laxatives to try to produce a bowel movement. Could even do enemas. Would advance then as tolerated. The patient should follow-up with a data processing supervisor postoperatively to discuss her GI issues. Should also follow-up with her colorectal surgeon if she has not already. Will sign off at this time. Please call the on-call surgeon with any questions or concerns.
--- NOTE | 2019-12-03 09:27 | PCM.PN ---
- General Info Date of Service: 12/03/19 Subjective Update: Slept well overnight. Still complains of abdominal pain. Passing more gas today but has not had bowel movement yet. Tolerating clear liquids well. - Patient Data Vitals - Most Recent: Last Vital Signs Temp 97.6 F 12/03/19 07:50 Pulse 78 12/03/19 07:50 Resp 15 12/03/19 07:50 BP 128/67 12/03/19 07:50 Pulse Ox 92 L 12/03/19 07:50 Weight - Most Recent: 125 lb 1.6 oz I&O - Last 24 Hours: Intake & Output 12/02/19 12/03/19 12/03/19 22:59 06:59 14:59 Intake Total 997 1988 Output Total 780 1900 Balance 217 88 Lab Results Last 24 Hours: Laboratory Results - last 24 hr 12/02/19 12/02/19 12/02/19 Range/Units 07:21 13:57 23:44 WBC (4.0-11.0) K/uL RBC (4.30-5.90) M/uL Hgb (12.0-16.0) g/dL Hct (36.0-46.0) % MCV (80.0-98.0) fL MCH (27.0-32.0) pg MCHC (31.0-37.0) g/dL RDW Std Deviation (28.0-62.0) fl RDW Coeff of Shaq (11.0-15.0) % Plt Count (150-400) K/uL MPV (7.40-12.00) fL Neut % (Auto) (48.0-80.0) % Lymph % (Auto) (16.0-40.0) % [place] % (Auto) (0.0-15.0) % Eos % (Auto) (0.0-7.0) % Baso % (Auto) (0.0-1.5) % Neut # (Auto) (1.4-5.7) K/uL Lymph # (Auto) (0.6-2.4) K/uL [place] # (Auto) (0.0-0.8) K/uL Eos # (Auto) (0.0-0.7) K/uL Baso # (Auto) (0.0-0.1) K/uL Nucleated RBC % /100WBC Nucleated RBCs # K/uL Sodium (136-145) mmol/L Potassium (3.5-5.1) mmol/L Chloride (98-107) mmol/L Carbon Dioxide (21.0-32.0) mmol/L BUN (7.0-18.0) mg/dL Creatinine (0.6-1.0) mg/dL Est Cr Clr Drug Dosing mL/min Estimated GFR (MDRD) ml/min Glucose (74-106) mg/dL POC Glucose 93 86 98 (60-110) mg/dL Calcium (8.5-10.1) mg/dL Total Bilirubin (0.2-1.0) mg/dL AST (15-37) IU/L ALT (14-63) IU/L Alkaline Phosphatase (46-116) U/L Total Protein (6.4-8.2) g/dL Albumin (3.4-5.0) g/dL Globulin (2.6-4.0) g/dL Albumin/Globulin Ratio (0.9-1.6) 12/03/19 12/03/19 12/03/19 Range/Units 04:28 05:18 05:18 WBC 3.38 L (4.0-11.0) K/uL RBC 4.22 L (4.30-5.90) M/uL Hgb 11.6 L (12.0-16.0) g/dL Hct 36.9 (36.0-46.0) % MCV 87.4 (80.0-98.0) fL MCH 27.5 (27.0-32.0) pg MCHC 31.4 (31.0-37.0) g/dL RDW Std Deviation 47.8 (28.0-62.0) fl RDW Coeff of Shaq 15 (11.0-15.0) % Plt Count 142 L (150-400) K/uL MPV 10.00 (7.40-12.00) fL Neut % (Auto) 49.7 (48.0-80.0) % Lymph % (Auto) 34.9 (16.0-40.0) % [place] % (Auto) 12.7 (0.0-15.0) % Eos % (Auto) 2.4 (0.0-7.0) % Baso % (Auto) 0.3 (0.0-1.5) % Neut # (Auto) 1.7 (1.4-5.7) K/uL Lymph # (Auto) 1.2 (0.6-2.4) K/uL [place] # (Auto) 0.4 (0.0-0.8) K/uL Eos # (Auto) 0.1 (0.0-0.7) K/uL Baso # (Auto) 0.0 (0.0-0.1) K/uL Nucleated RBC % 0.0 /100WBC Nucleated RBCs # 0 K/uL Sodium 143 (136-145) mmol/L Potassium 3.3 L (3.5-5.1) mmol/L Chloride 109 H (98-107) mmol/L Carbon Dioxide 26.9 (21.0-32.0) mmol/L BUN 3 L (7.0-18.0) mg/dL Creatinine 0.5 L (0.6-1.0) mg/dL Est Cr Clr Drug Dosing 105.84 mL/min Estimated GFR (MDRD) > 60.0 ml/min Glucose 101 (74-106) mg/dL POC Glucose 87 (60-110) mg/dL Calcium 8.3 L (8.5-10.1) mg/dL Total Bilirubin 1.1 H (0.2-1.0) mg/dL AST 15 (15-37) IU/L ALT 15 (14-63) IU/L Alkaline Phosphatase 63 (46-116) U/L Total Protein 6.0 L (6.4-8.2) g/dL Albumin 3.1 L (3.4-5.0) g/dL Globulin 2.9 (2.6-4.0) g/dL Albumin/Globulin Ratio 1.1 (0.9-1.6) Yair Results Last 24 Hours: Microbiology 12/01/19 14:36 Urine Culture - Final Urine, Clean Catch MIXED ZOE <1000 CFU/ML Med Orders - Current: Current Medications Albuterol/Ipratropium (Combivent Respimat) 0 gm INH QID PRN PRN Reason: Shortness of Breath Budesonide (Pulmicort) 0.5 mg INH BEDTIME CLARA Last Admin: 12/02/19 21:14 Dose: 0.5 mg Budesonide/Formoterol Fumarate (Symbicort 160-4.5 Mcg) 0 gm INH BID CLARA Last Admin: 12/03/19 08:20 Dose: 1 puff Enoxaparin Sodium (Lovenox) 40 mg SUBCUT Q24H CLARA Last Admin: 12/02/19 17:34 Dose: 40 mg Dextrose/Sodium Chloride (Dextrose 5%-Normal Saline) 1,000 mls @ 100 mls/hr IV ASDIRECTED CLARA Last Admin: 12/03/19 01:29 Dose: 100 mls/hr Lorazepam (Ativan) 1 mg IVPUSH Q6H PRN PRN Reason: Anxiety Last Admin: 12/03/19 08:17 Dose: 1 mg Morphine Sulfate (Morphine) 2 mg IVPUSH Q2H PRN PRN Reason: Pain (severe 7-10) Last Admin: 12/03/19 07:30 Dose: 2 mg Ondansetron HCl (Zofran) 4 mg IVPUSH Q4H PRN PRN Reason: Nausea Last Admin: 12/02/19 15:48 Dose: 4 mg Sodium Chloride (Saline Flush) 10 ml FLUSH ASDIRECTED PRN PRN Reason: Keep Vein Open Sodium Chloride (Saline Flush) 2.5 ml FLUSH ASDIRECTED PRN PRN Reason: Keep Vein Open Discontinued Medications Albuterol/Ipratropium (Combivent Respimat) 4 gm INH QID PRN PRN Reason: Shortness of Breath Gadobenate Dimeglumine (Multihance) 10 ml IVPUSH ONETIME STA Stop: 12/02/19 13:05 Last Admin: 12/02/19 13:05 Dose: 10 ml Sodium Chloride (Normal Saline) 1,000 mls @ 999 mls/hr IV STAT ONE Stop: 12/01/19 15:27 Last Admin: 12/01/19 14:58 Dose: 999 mls/hr Sodium Chloride (Normal Saline) 1,000 mls @ 125 mls/hr IV STAT ONE Stop: 12/02/19 01:23 Last Admin: 12/01/19 17:50 Dose: 125 mls/hr Sodium Chloride (Normal Saline) 1,000 mls @ 100 mls/hr IV STAT CLARA Iopamidol (Isovue Multipack-370 (76%)) 66 ml IVPUSH ONETIME STA Stop: 12/01/19 16:21 Last Admin: 12/01/19 16:21 Dose: 66 ml Morphine Sulfate (Morphine) 2 mg IVPUSH ONETIME ONE Stop: 12/01/19 14:28 Last Admin: 12/01/19 14:58 Dose: 2 mg Morphine Sulfate (Morphine) 2 mg IVPUSH ONETIME ONE Stop: 12/01/19 17:22 Last Admin: 12/01/19 17:50 Dose: 2 mg Morphine Sulfate (Morphine) 2 mg IVPUSH Q2H PRN PRN Reason: Pain (severe 7-10) Stop: 12/02/19 18:13 Last Admin: 12/02/19 17:29 Dose: 2 mg Ondansetron HCl (Zofran) 4 mg IVPUSH ONETIME ONE Stop: 12/01/19 14:28 Last Admin: 12/01/19 14:58 Dose: 4 mg - Exam General: Alert, Oriented, Cooperative, No Acute Distress Lungs: Clear to Auscultation, Normal Respiratory Effort Cardiovascular: Regular Rate, Regular Rhythm GI/Abdominal Exam: Normal Bowel Sounds, Soft (ttp in epigastric region), No Distention Extremities: Normal Inspection, No Pedal Edema Sepsis Event Note - Evaluation Sepsis Screening Result: No Definite Risk - Focused Exam Vital Signs: Vital Signs Temp Pulse Resp BP Pulse Ox 12/03/19 07:50 97.6 F 78 15 128/67 92 L 12/03/19 04:23 97.7 F 80 16 131/74 92 L 12/02/19 23:25 97.9 F 85 16 131/65 91 L Date Exam was Performed: 12/03/19 Time Exam was Performed: 11:58 - Problem List Review Problem List Initiated/Reviewed/Updated: Yes - Plan Plan:: Assessment and Plan: 1. Abdominal pain secondary to small bowel obstruction: - MRI showed improved bowel distention, mild common bile duct dilatation (8 mm) with no gallstones or biliary stones. Patient could have chronic stricture at distal common-bile duct. - Per general surgery, MRI reviewed and recommended CLD until patient has bowel movement. Once patient has bowel movement then advance diet as tolerated. Start bowel regimen including enema. General surgery also recommended follow-up with gastroenterology and her colorectal surgeon on discharge. - Will start patient on colace BID prn and also give Milk of magnesia. Will discontinue IV medications and switch to PO. For pain, start oxycodone 325/5 mg q4h prn. 2. Past medical history of COPD, anxiety and depression. 3. DVT prophylaxis: lovenox.
[2019-12-03] MEDS ORDERED: Magnesium Hydroxide 400 MG/5 ML Susp 30 ML Cup PO PRN (10:33)
[2019-12-03] MEDS ORDERED: Potassium Chloride 20 MEQ Tab.ER PO ONE (11:36)
[2019-12-03] MEDS ORDERED: Docusate Sodium 100 MG Cap PO PRN (11:39)
[2019-12-03] MEDS ORDERED: oxyCODONE 5 MG Tab PO PRN (12:00)
[2019-12-03] MEDS: Ondansetron 4 MG/2 ML SDV IVPUSH PRN (14:33)
[2019-12-03] MEDS: ALPRAZolam 0.5 MG Tab PO PRN ×2 (14:42→23:32)
[2019-12-03] MEDS: oxyCODONE 5 MG Tab PO PRN ×2 (17:20→21:30)
[2019-12-03] MEDS: Enoxaparin 40 MG/0.4 ML Syringe SUBCUT SCH (18:08)
[2019-12-03] MEDS ORDERED: Docusate Sodium 100 MG Cap PO SCH (21:00)
[2019-12-03] MEDS: busPIRone 5 MG Tab PO SCH (21:23)
[2019-12-03] MEDS: Budesonide 0.5 MG/2 ML Neb Susp INH SCH (21:27)
[2019-12-04] MEDS: oxyCODONE 5 MG Tab PO PRN ×3 (01:42→10:12)
[2019-12-04 07:11] LABS: BLOOD UREA NITROGEN,BUN 5 mg/dL (7.0-18.0); CARBON DIOXIDE,CO2 28.2 mmol/L (21.0-32.0); CHLORIDE,CL 111 mmol/L (98-107); GLUCOSE RANDOM 83 mg/dL (74-106); POTASSIUM,K 3.9 mmol/L (3.5-5.1); SODIUM,NA 147 mmol/L (136-145)
[2019-12-04] MEDS: Dextrose 5%-0.9% NaCl 1,000 ML IV SCH (07:17)
[2019-12-04] MEDS ORDERED: Docusate Sodium 100 MG Cap PO SCH (09:00)
[2019-12-04] MEDS: FORMOTEROL INH SCH (09:47)
[2019-12-04] MEDS: BUDESONIDE INH SCH (09:47)
[2019-12-04] MEDS: busPIRone 5 MG Tab PO SCH (10:13)
[2019-12-04] MEDS: ALPRAZolam 0.5 MG Tab PO PRN (11:23)
--- NOTE | 2019-12-04 15:18 | PCM.DCSUM1 ---
Discharge Summary - Hospital Course Free Text/Narrative:: 59-year-old female admitted for small bowel obstruction. Patient has history of bowel perforation, colostomy s/p revision, COPD, anxiety and depression. Patient was made NPO, IVF and pain control. CT abdomen showed increased stool throughout colon, small bowel obstruction, CBD dilatation of 1.0 cm and slight intra-hepatic duct dilatation. General surgery consulted who recommended getting MRI abdomen. MRI abdomen showed CBD dilatation of 8mm, no choledocholithiasis, no gallstones and improvement in small bowel distention. General surgery reviewed MRI and recommended CLD until bowel movement achieved and then advance diet as tolerated. General surgery also recommended keeping patient on good bowel regimen and advised patient to follow-up with a medical technician and her colorectal surgeon in [place], [place]. Patient reported that she will be following-up with general surgeon Dr. Urbina here in [place], [place] on discharge. Patient successful had bowel movements, was passing gas and tolerating soft diet by day of discharge. She continued to complain of abdominal pain, however, reported was made tolerable with pain medications. Patient was educated on the use of opioids and risk of slowing down her bowels and to use only sparingly if needed. Patient discharged in stable condition, instructed to take colace and miralax daily. Advised to follow-up with PCP, general surgery and gastroenterology on discharge. - Discharge Data Discharge Date: 12/04/19 Discharge Disposition: Home, Self-Care 01 Condition: Stable - Referral to Home Health Primary Care Physician: Yaw Loza MD - Patient Summary/Data Consults: Consultations 12/01/19 18:33 Consult to Physician [CONS] Routine - Patient Instructions Diet, Other: Soft diet, advance slowly as tolerated Activity: As Tolerated Notify Provider of: Fever, Increased Pain, Swelling and Redness, Drainage, Nausea and/or Vomiting - Discharge Plan *PRESCRIPTION DRUG MONITORING PROGRAM REVIEWED*: Yes *COPY OF PRESCRIPTION DRUG MONITORING REPORT IN PATIENT CHELSIE: Not Applicable Prescriptions/Med Rec: oxyCODONE HCl [Oxycodone HCL] 10 mg PO Q6H PRN 5 Days #20 tablet PRN Reason: Pain Home Medications: Home Meds ALPRAZolam [Xanax] 2 mg PO TID PRN 05/29/18 [History] Albuterol/Ipratropium [Combivent Respimat] 1 puff IH QID PRN 05/29/18 [History] Budesonide [Pulmicort] 1 dose INH BEDTIME 11/04/18 [History] Fluticasone Propionate [Flonase] 2 puff NASBOTH DAILY 11/04/18 [History] busPIRone [Buspar] 15 mg PO BID 11/04/18 [History] Ondansetron [Zofran ODT] 4 mg PO Q6H PRN 08/04/19 [History] Rosuvastatin [Crestor] 5 mg PO BEDTIME 08/04/19 [History] Budesonide/Formoterol Fumarate [Symbicort 160-4.5 Mcg Inhaler] 6 gm IH BID 30 Days #1 hfa.aer.ad 08/06/19 [Rx] Iron Polysaccharides Complex [Ferrex 150] 150 mg PO DAILY #30 cap 08/06/19 [Rx] Docusate Sodium [Colace] 100 mg PO BID 09/18/19 [History] oxyCODONE HCl [Oxycodone HCL] 10 mg PO Q6H PRN 5 Days #20 tablet 12/04/19 [Rx] Oxygen Therapy Mode: Room Air Patient Handouts: Oxycodone tablets or capsules, Small Bowel Obstruction Referrals: Bhavesh Urbina MD [Family Provider] - (Please call [facility] on Friday morning to make a 'hospital follow up' appointment regarding this stay for small bowel obstruction; also inquire regarding referral to GI specialist in [place]) Yaw Loza MD [Primary Care Provider] - 12/09/19 10:00 am - Discharge Summary/Plan Comment DC Time >30 min.: No - Patient Data Vitals - Most Recent: Last Vital Signs Temp 98.6 F 12/04/19 11:25 Pulse 77 12/04/19 11:25 Resp 18 12/04/19 11:25 BP 139/82 12/04/19 11:25 Pulse Ox 92 L 12/04/19 11:25 Weight - Most Recent: 127 lb 3.2 oz I&O - Last 24 hours: Intake & Output 12/04/19 12/04/19 12/04/19 06:59 14:59 22:59 Intake Total 1623 Output Total 2100 Balance -477 Lab Results - Last 24 hrs: Laboratory Results - last 24 hr 03/12/03/19 12/03/19 Range/Units 11:11 11:35 18:12 WBC (4.0-11.0) K/uL RBC (4.30-5.90) M/uL Hgb (12.0-16.0) g/dL Hct (36.0-46.0) % MCV (80.0-98.0) fL MCH (27.0-32.0) pg MCHC (31.0-37.0) g/dL RDW Std Deviation (28.0-62.0) fl RDW Coeff of Shaq (11.0-15.0) % Plt Count (150-400) K/uL MPV (7.40-12.00) fL Neut % (Auto) (48.0-80.0) % Lymph % (Auto) (16.0-40.0) % [place] % (Auto) (0.0-15.0) % Eos % (Auto) (0.0-7.0) % Baso % (Auto) (0.0-1.5) % Neut # (Auto) (1.4-5.7) K/uL Lymph # (Auto) (0.6-2.4) K/uL [place] # (Auto) (0.0-0.8) K/uL Eos # (Auto) (0.0-0.7) K/uL Baso # (Auto) (0.0-0.1) K/uL Nucleated RBC % /100WBC Nucleated RBCs # K/uL Sodium (136-145) mmol/L Potassium (3.5-5.1) mmol/L Chloride (98-107) mmol/L Carbon Dioxide (21.0-32.0) mmol/L BUN (7.0-18.0) mg/dL Creatinine (0.6-1.0) mg/dL Est Cr Clr Drug Dosing mL/min Estimated GFR (MDRD) ml/min Glucose (74-106) mg/dL POC Glucose 68 104 124 H (60-110) mg/dL Calcium (8.5-10.1) mg/dL Total Bilirubin (0.2-1.0) mg/dL AST (15-37) IU/L ALT (14-63) IU/L Alkaline Phosphatase (46-116) U/L Total Protein (6.4-8.2) g/dL Albumin (3.4-5.0) g/dL Globulin (2.6-4.0) g/dL Albumin/Globulin Ratio (0.9-1.6) 12/03/19 12/04/19 12/04/19 Range/Units 23:29 05:59 06:00 WBC 4.10 (4.0-11.0) K/uL RBC 4.41 (4.30-5.90) M/uL Hgb 12.3 (12.0-16.0) g/dL Hct 39.3 (36.0-46.0) % MCV 89.1 (80.0-98.0) fL MCH 27.9 (27.0-32.0) pg MCHC 31.3 (31.0-37.0) g/dL RDW Std Deviation 48.2 (28.0-62.0) fl RDW Coeff of Shaq 15 (11.0-15.0) % Plt Count 151 (150-400) K/uL MPV 10.40 (7.40-12.00) fL Neut % (Auto) 41.0 L (48.0-80.0) % Lymph % (Auto) 42.2 H (16.0-40.0) % [place] % (Auto) 12.2 (0.0-15.0) % Eos % (Auto) 4.1 (0.0-7.0) % Baso % (Auto) 0.5 (0.0-1.5) % Neut # (Auto) 1.7 (1.4-5.7) K/uL Lymph # (Auto) 1.7 (0.6-2.4) K/uL [place] # (Auto) 0.5 (0.0-0.8) K/uL Eos # (Auto) 0.2 (0.0-0.7) K/uL Baso # (Auto) 0.0 (0.0-0.1) K/uL Nucleated RBC % 0.0 /100WBC Nucleated RBCs # 0 K/uL Sodium (136-145) mmol/L Potassium (3.5-5.1) mmol/L Chloride (98-107) mmol/L Carbon Dioxide (21.0-32.0) mmol/L BUN (7.0-18.0) mg/dL Creatinine (0.6-1.0) mg/dL Est Cr Clr Drug Dosing mL/min Estimated GFR (MDRD) ml/min Glucose (74-106) mg/dL POC Glucose 85 79 (60-110) mg/dL Calcium (8.5-10.1) mg/dL Total Bilirubin (0.2-1.0) mg/dL AST (15-37) IU/L ALT (14-63) IU/L Alkaline Phosphatase (46-116) U/L Total Protein (6.4-8.2) g/dL Albumin (3.4-5.0) g/dL Globulin (2.6-4.0) g/dL Albumin/Globulin Ratio (0.9-1.6) / Range/Units 06:00 WBC (4.0-11.0) K/uL RBC (4.30-5.90) M/uL Hgb (12.0-16.0) g/dL Hct (36.0-46.0) % MCV (80.0-98.0) fL MCH (27.0-32.0) pg MCHC (31.0-37.0) g/dL RDW Std Deviation (28.0-62.0) fl RDW Coeff of Shaq (11.0-15.0) % Plt Count (150-400) K/uL MPV (7.40-12.00) fL Neut % (Auto) (48.0-80.0) % Lymph % (Auto) (16.0-40.0) % [place] % (Auto) (0.0-15.0) % Eos % (Auto) (0.0-7.0) % Baso % (Auto) (0.0-1.5) % Neut # (Auto) (1.4-5.7) K/uL Lymph # (Auto) (0.6-2.4) K/uL [place] # (Auto) (0.0-0.8) K/uL Eos # (Auto) (0.0-0.7) K/uL Baso # (Auto) (0.0-0.1) K/uL Nucleated RBC % /100WBC Nucleated RBCs # K/uL Sodium 147 H (136-145) mmol/L Potassium 3.9 (3.5-5.1) mmol/L Chloride 111 H (98-107) mmol/L Carbon Dioxide 28.2 (21.0-32.0) mmol/L BUN 5 L (7.0-18.0) mg/dL Creatinine 0.5 L (0.6-1.0) mg/dL Est Cr Clr Drug Dosing 105.84 mL/min Estimated GFR (MDRD) > 60.0 ml/min Glucose 83 (74-106) mg/dL POC Glucose (60-110) mg/dL Calcium 8.5 (8.5-10.1) mg/dL Total Bilirubin 0.9 (0.2-1.0) mg/dL AST 15 (15-37) IU/L ALT 14 (14-63) IU/L Alkaline Phosphatase 63 (46-116) U/L Total Protein 6.2 L (6.4-8.2) g/dL Albumin 3.1 L (3.4-5.0) g/dL Globulin 3.1 (2.6-4.0) g/dL Albumin/Globulin Ratio 1.0 (0.9-1.6) Med Orders - Current: Current Medications Discontinued Medications Albuterol/Ipratropium (Combivent Respimat) 4 gm INH QID PRN PRN Reason: Shortness of Breath Albuterol/Ipratropium (Combivent Respimat) 0 gm INH QID PRN PRN Reason: Shortness of Breath Alprazolam (Xanax) 2 mg PO TID PRN PRN Reason: Anxiety Last Admin: 12/04/19 11:23 Dose: 2 mg Budesonide (Pulmicort) 0.5 mg INH BEDTIME CLARA Last Admin: 12/03/19 21:27 Dose: 0.5 mg Budesonide/Formoterol Fumarate (Symbicort 160-4.5 Mcg) 0 gm INH BID CLARA Last Admin: 12/04/19 09:47 Dose: 1 puff Buspirone HCl (Buspar) 15 mg PO BID [facility] Last Admin: 12/04/19 10:13 Dose: 15 mg Docusate Sodium (Colace) 100 mg PO BID CLARA Docusate Sodium (Colace) 100 mg PO BID PRN PRN Reason: Constipation Last Admin: 12/03/19 13:22 Dose: 100 mg Docusate Sodium (Colace) 100 mg PO BID CLARA Last Admin: 12/04/19 10:13 Dose: 100 mg Enoxaparin Sodium (Lovenox) 40 mg SUBCUT Q24H CLARA Last Admin: 12/03/19 18:08 Dose: 40 mg Gadobenate Dimeglumine (Multihance) 10 ml IVPUSH ONETIME STA Stop: 12/02/19 13:05 Last Admin: 12/02/19 13:05 Dose: 10 ml Sodium Chloride (Normal Saline) 1,000 mls @ 999 mls/hr IV STAT ONE Stop: 12/01/19 15:27 Last Admin: 12/01/19 14:58 Dose: 999 mls/hr Sodium Chloride (Normal Saline) 1,000 mls @ 125 mls/hr IV STAT ONE Stop: 12/02/19 01:23 Last Admin: 12/01/19 17:50 Dose: 125 mls/hr Sodium Chloride (Normal Saline) 1,000 mls @ 100 mls/hr IV STAT CLARA Dextrose/Sodium Chloride (Dextrose 5%-Normal Saline) 1,000 mls @ 100 mls/hr IV ASDIRECTED [facility] Last Admin: 12/04/19 07:17 Dose: 100 mls/hr Iopamidol (Isovue Multipack-370 (76%)) 66 ml IVPUSH ONETIME STA Stop: 12/01/19 16:21 Last Admin: 12/01/19 16:21 Dose: 66 ml Lorazepam (Ativan) 1 mg IVPUSH Q6H PRN PRN Reason: Anxiety Last Admin: 12/03/19 08:17 Dose: 1 mg Magnesium Hydroxide (Milk Of Magnesia) 30 ml PO DAILY PRN PRN Reason: Constipation Morphine Sulfate (Morphine) 2 mg IVPUSH ONETIME ONE Stop: 12/01/19 14:28 Last Admin: 12/01/19 14:58 Dose: 2 mg Morphine Sulfate (Morphine) 2 mg IVPUSH ONETIME ONE Stop: 12/01/19 17:22 Last Admin: 12/01/19 17:50 Dose: 2 mg Morphine Sulfate (Morphine) 2 mg IVPUSH Q2H PRN PRN Reason: Pain (severe 7-10) Stop: 12/02/19 18:13 Last Admin: 12/02/19 17:29 Dose: 2 mg Morphine Sulfate (Morphine) 2 mg IVPUSH Q2H PRN PRN Reason: Pain (severe 7-10) Last Admin: 12/03/19 10:00 Dose: 2 mg Ondansetron HCl (Zofran) 4 mg IVPUSH ONETIME ONE Stop: 12/01/19 14:28 Last Admin: 12/01/19 14:58 Dose: 4 mg Ondansetron HCl (Zofran) 4 mg IVPUSH Q4H PRN PRN Reason: Nausea Last Admin: 12/03/19 14:33 Dose: 4 mg Oxycodone HCl (Oxycodone) 5 mg PO Q4H PRN PRN Reason: Pain Last Admin: 12/03/19 13:22 Dose: 5 mg Oxycodone HCl (Oxycodone) 10 mg PO Q4H PRN PRN Reason: Pain Last Admin: 12/04/19 10:12 Dose: 10 mg Potassium Chloride (Klor-Con M20) 40 meq PO ONETIME ONE Stop: 12/03/19 11:37 Last Admin: 12/03/19 13:23 Dose: 40 meq Sodium Chloride (Saline Flush) 10 ml FLUSH ASDIRECTED PRN PRN Reason: Keep Vein Open Sodium Chloride (Saline Flush) 2.5 ml FLUSH ASDIRECTED PRN PRN Reason: Keep Vein Open
== END 2019-12-04 13:05 | disposition home or self-care (01) | DRG 247 ==
LOC: MW.ED 13:52 → MW.MS 17:22 → OBSVTOIN 12-03 11:37 → MW.MS 12-03 11:38
PROVIDERS: ADMIT Internal Medicine; ATTEND Internal Medicine
DX: K56.609 Unspecified intestinal obstruction, unspecified as to partial versus complete obstruction (principal); J44.9 Chronic obstructive pulmonary disease, unspecified; F41.9 Anxiety disorder, unspecified; F32.9 Major depressive disorder, single episode, unspecified; K83.8 Other specified diseases of biliary tract; M19.90 Unspecified osteoarthritis, unspecified site; Z99.81 Dependence on supplemental oxygen; Z93.3 Colostomy status; Z79.51 Long term (current) use of inhaled steroids; Z79.899 Other long term (current) drug therapy; Z90.89 Acquired absence of other organs; Z90.49 Acquired absence of other specified parts of digestive tract; Z98.51 Tubal ligation status; Z87.891 Personal history of nicotine dependence; Z68.1 Body mass index [BMI] 19.9 or less, adult
CPT/HCPCS: 36415; 74177; 74177-26; 74183; 74183-26; 80053; 81001; 82962; 83690; 84443; 85025; 87086; 94640; 96361; 96372; 96374; 96375; 96376; 99285-25; A9270-GY; A9577; G0378; J1650; J2060; J2270; J2405; J7030; J7042; Q9967

== ENCOUNTER 2020-01-12 15:41 | Emergency (ER) | payer BC, MEDICARE ==
[2020-01-12] MEDS ORDERED: Ondansetron 4 MG/2 ML SDV IVPUSH ONE (16:11)
[2020-01-12] MEDS ORDERED: Morphine 4 MG/ML Syringe IVPUSH ONE ×2 (16:17→19:02)
--- NOTE | 2020-01-12 16:23 | EDM.PDOC ---
ED HPI GENERAL MEDICAL PROBLEM - General Chief Complaint: Abdominal Pain Stated Complaint: ABDOMINAL PAIN Time Seen by Provider: 01/12/20 16:10 Source of Information: Reports: Patient History Limitations: Reports: No Limitations - History of Present Illness INITIAL COMMENTS - FREE TEXT/NARRATIVE: 59-year-old female who presents the emergency room with abdominal pain. Patient has had multiple episodes of small bowel obstruction and feels like she is having another one. Patient admits to nausea and vomiting and abdominal pain. Onset: Today Location: Reports: Head Severity: Moderate Worsens with: Reports: None Associated Symptoms: Reports: No Other Symptoms abdominal pain Pain Score (Numeric/FACES): 5 - Related Data Allergies Allergy/AdvReac Type Severity Reaction Status Date / Time No Known Allergies Allergy Verified 01/12/20 16:06 Home Meds: Home Meds ALPRAZolam [Xanax] 2 mg PO TID PRN 05/29/18 [History] Albuterol/Ipratropium [Combivent Respimat] 1 puff IH QID PRN 05/29/18 [History] Budesonide [Pulmicort] 1 dose INH BEDTIME 11/04/18 [History] Fluticasone Propionate [Flonase] 2 puff NASBOTH DAILY 11/04/18 [History] busPIRone [Buspar] 15 mg PO BID 11/04/18 [History] Ondansetron [Zofran ODT] 4 mg PO Q6H PRN 08/04/19 [History] Rosuvastatin [Crestor] 5 mg PO BEDTIME 08/04/19 [History] Budesonide/Formoterol Fumarate [Symbicort 160-4.5 Mcg Inhaler] 6 gm IH BID 30 Days #1 hfa.aer.ad 08/06/19 [Rx] Docusate Sodium [Colace] 100 mg PO BID 09/18/19 [History] Past Medical History HEENT History: Reports: None Cardiovascular History: Reports: Heart Murmur 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 Respiratory History: Reports: COPD Other Respiratory History: emphsyema Gastrointestinal History: Reports: Bowel Obstruction Other Gastrointestinal History: Bowel obstruction 2010, 2019, perforated colon in 2019 Genitourinary History: Reports: 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: Musculoskeletal History: Reports: Arthritis Neurological History: Reports: None Psychiatric History: Reports: Anxiety, Depression, Panic Attack Endocrine/Metabolic History: Reports: None Hematologic History: Reports: Blood Transfusion(s) Immunologic History: Reports: None Oncologic (Cancer) History: Reports: None Dermatologic History: Reports: None - Infectious Disease History Infectious Disease History: Reports: None - Past Surgical History Head Surgeries/Procedures: Reports: None HEENT Surgical History: Reports: Tonsillectomy Cardiovascular Surgical History: Reports: Cardiac Ablation Respiratory Surgical History: Reports: None GI Surgical History: Reports: Appendectomy, Colonoscopy, Colostomy, Other (See Below) Other GI Surgeries/Procedures: Colostomy: reversed in [place] Female Surgical History: Reports: Section, Tubal Ligation Endocrine Surgical History: Reports: None Neurological Surgical History: Reports: None Musculoskeletal Surgical History: Reports: None Oncologic Surgical History: Reports: None Dermatological Surgical History: Reports: None Social & Family History - Family History Family Medical History: Noncontributory - Tobacco Use Smoking Status *Q: Former Smoker Used Tobacco, but Quit: Yes Month/Year Tobacco Last Used: 5 years ago - Caffeine Use Caffeine Use: Reports: Coffee Other Caffeine Use: 3cups/day Caffeine Use Comment: 1/2 cup each day - Recreational Drug Use Recreational Drug Use: No ED ROS GENERAL - Review of Systems Review Of Systems: See Below Constitutional: Reports: No Symptoms HEENT: Reports: No Symptoms Respiratory: Reports: No Symptoms Cardiovascular: Reports: No Symptoms Endocrine: Reports: No Symptoms GI/Abdominal: Reports: No Symptoms : Reports: No Symptoms Musculoskeletal: Reports: No Symptoms Skin: Reports: No Symptoms Neurological: Reports: No Symptoms Psychiatric: Reports: No Symptoms Hematologic/Lymphatic: Reports: No Symptoms Immunologic: Reports: No Symptoms ED EXAM, GI/ABD - Physical Exam Exam: See Below Exam Limited By: No Limitations General Appearance: Alert, WD/WN, No Apparent Distress Eyes: Bilateral: Normal Appearance Ears: Normal External Exam, Normal Canal, Hearing Grossly Normal Nose: Normal Inspection Throat/Mouth: Normal Inspection, Normal Lips Head: Atraumatic, Normocephalic Neck: Normal Inspection, Supple, Non-Tender Respiratory/Chest: No Respiratory Distress, Lungs Clear, Normal Breath Sounds, No Accessory Muscle Use, Chest Non-Tender Cardiovascular: Normal Peripheral Pulses, Regular Rate, Rhythm, No Edema GI/Abdominal Exam: Normal Bowel Sounds, Soft, Non-Tender, No Organomegaly, No Distention, No Abnormal Bruit, No Mass Back Exam: Normal Inspection, Full Range of Motion Extremities: Normal Inspection, Normal Range of Motion, No Pedal Edema, Normal Capillary Refill Neurological: Alert, Oriented, CN II-XII Intact, Normal Cognition, Normal Reflexes, No Motor/Sensory Deficits Psychiatric: Normal Affect, Normal Mood Skin Exam: Warm, Dry, Intact, Normal Color, No Rash Lymphatic: No Adenopathy Course - Vital Signs Text/Narrative:: CT scan is negative for the abdomen. Patient will be given IV fluids and pain medicine and discharged home. Last Recorded V/S: Last Vital Signs Temp 97.2 F 01/12/20 16:06 Pulse 104 H 01/12/20 16:06 Resp 18 01/12/20 16:06 BP 134/75 01/12/20 16:06 Pulse Ox 96 01/12/20 16:06 - Orders/Labs/Meds Orders: Active Orders 24 hr Category Date Time Status Sodium Chloride 0.9% [Normal Saline] 1,000 ml Med 01/12/20 19:04 Ordered IV .Bolus Labs: Laboratory Tests 01/12/20 01/12/20 01/12/20 Range/Units 16:15 16:15 18:36 WBC 5.70 (4.0-11.0) K/uL RBC 4.65 (4.30-5.90) M/uL Hgb 13.3 (12.0-16.0) g/dL Hct 41.5 (36.0-46.0) % MCV 89.2 (80.0-98.0) fL MCH 28.6 (27.0-32.0) pg MCHC 32.0 (31.0-37.0) g/dL RDW Std Deviation 47.6 (28.0-62.0) fl RDW Coeff of Shaq 15 (11.0-15.0) % Plt Count 198 (150-400) K/uL MPV 9.90 (7.40-12.00) fL Neut % (Auto) 59.2 (48.0-80.0) % Lymph % (Auto) 27.2 (16.0-40.0) % [place] % (Auto) 11.2 (0.0-15.0) % Eos % (Auto) 1.9 (0.0-7.0) % Baso % (Auto) 0.5 (0.0-1.5) % Neut # (Auto) 3.4 (1.4-5.7) K/uL Lymph # (Auto) 1.6 (0.6-2.4) K/uL [place] # (Auto) 0.6 (0.0-0.8) K/uL Eos # (Auto) 0.1 (0.0-0.7) K/uL Baso # (Auto) 0.0 (0.0-0.1) K/uL Nucleated RBC % 0.0 /100WBC Nucleated RBCs # 0 K/uL Sodium 140 (136-145) mmol/L Potassium 4.2 (3.5-5.1) mmol/L Chloride 103 (98-107) mmol/L Carbon Dioxide 29.6 (21.0-32.0) mmol/L BUN 12 (7.0-18.0) mg/dL Creatinine 0.8 (0.6-1.0) mg/dL Est Cr Clr Drug Dosing 66.10 mL/min Estimated GFR (MDRD) > 60.0 ml/min Glucose 90 (74-106) mg/dL Calcium 9.1 (8.5-10.1) mg/dL Total Bilirubin 1.1 H (0.2-1.0) mg/dL AST 17 (15-37) IU/L ALT 20 (14-63) IU/L Alkaline Phosphatase 68 (46-116) U/L Total Protein 7.5 (6.4-8.2) g/dL Albumin 4.1 (3.4-5.0) g/dL Globulin 3.4 (2.6-4.0) g/dL Albumin/Globulin Ratio 1.2 (0.9-1.6) Lipase 49 L (73-393) U/L Urine Color YELLOW Urine Appearance CLEAR Urine pH 7.5 (5.0-8.0) Ur Specific [place] 1.010 (1.001-1.035) Urine Protein NEGATIVE (NEGATIVE) mg/dL Urine Glucose (UA) NEGATIVE (NEGATIVE) mg/dL Urine Ketones NEGATIVE (NEGATIVE) mg/dL Urine Occult Blood NEGATIVE (NEGATIVE) Urine Nitrite NEGATIVE (NEGATIVE) Urine Bilirubin NEGATIVE (NEGATIVE) Urine Urobilinogen 0.2 (<2.0) EU/dL Ur Leukocyte Esterase NEGATIVE (NEGATIVE) Meds: Medications Discontinued Medications Generic Name Dose Route Start Last Admin Trade Name Savanna PRN Reason Stop Dose Admin Iopamidol 100 ml 01/12/20 17:10 01/12/20 17:12 Isovue-370 (76%) IVPUSH 01/12/20 17:11 100 ml ONETIME STA Administration Morphine Sulfate 4 mg 01/12/20 16:17 01/12/20 16:26 Morphine IVPUSH 01/12/20 16:18 4 mg ONETIME ONE Administration Morphine Sulfate 4 mg 01/12/20 19:02 Morphine IVPUSH 01/12/20 19:03 ONETIME ONE Ondansetron HCl 4 mg 01/12/20 16:11 01/12/20 16:26 Zofran IVPUSH 01/12/20 16:12 4 mg ONETIME ONE Administration Departure - Departure Time of Disposition: 19:05 Disposition: Home, Self-Care 01 Condition: Good Clinical Impression: Abdominal pain - Discharge Information Instructions: Abdominal Pain, Adult, [id number] Referrals: Yaw Loza MD [Primary Care Provider] - Forms: ED Department Discharge Additional Instructions: Patient to follow-up with primary care physician. 2. To have clear fluids for 24 hours. Sepsis Event Note - Evaluation Sepsis Screening Result: No Definite Risk - Focused Exam Vital Signs: Vital Signs Temp Pulse Resp BP Pulse Ox 01/12/20 16:06 97.2 F 104 H 18 134/75 96 Date Exam was Performed: 01/12/20 Time Exam was Performed: 19:04 - My Orders Last 24 Hours: My Active Orders 01/12/20 19:04 Sodium Chloride 0.9% [Normal Saline] 1,000 ml IV .Bolus - Assessment/Plan Last 24 Hours: My Active Orders 01/12/20 19:04 Sodium Chloride 0.9% [Normal Saline] 1,000 ml IV .Bolus
[2020-01-12 16:59] LABS: BLOOD UREA NITROGEN,BUN 12 mg/dL (7.0-18.0); CARBON DIOXIDE,CO2 29.6 mmol/L (21.0-32.0); CHLORIDE,CL 103 mmol/L (98-107); GLUCOSE RANDOM 90 mg/dL (74-106); LIPASE 49 U/L (73-393); POTASSIUM,K 4.2 mmol/L (3.5-5.1); SODIUM,NA 140 mmol/L (136-145)
[2020-01-12] MEDS ORDERED: Iopamidol 755 Mg/ML 100 ML Bottle IVPUSH STA (17:10)
--- NOTE | 2020-01-12 18:00 | CT ---
CT abdomen and pelvis Technique: Multiple axial sections were obtained from above the dome of the diaphragm inferiorly through the pubic symphysis. Intravenous contrast was utilized. No oral contrast has been given. Comparison: Previous CT abdomen and pelvis exam of 12/01/11. Findings: Visualized lung bases shows emphysematous change. Focal fat is noted within the right paraspinal region which is benign. Small area of focal fatty eventration seen posteriorly within the left hemidiaphragm which is incidental. Liver contains no focal abnormality. Spleen appears within normal limits. Adrenal glands show no nodule. Pancreas shows no discrete abnormality. Slightly prominent CBD is noted with gallbladder and placed. Uncertain as to etiology. Very minimal intrahepatic biliary duct dilatation is also noted. Kidneys show symmetric contrast enhancement with no hydronephrosis or mass. Diffuse increased stool seen throughout the colon. No mesenteric abnormalities are seen. Aorta shows diffuse atherosclerotic calcification which continues into the iliac vessels. No pelvic mass or adenopathy is seen. No free fluid or inflammatory change is appreciated. Appendix not visualized with certainty. Bone window settings were reviewed which shows mild degenerative change within the spine. Limbus type vertebra noted anteriorly and superiorly within the L3 vertebral body. Impression: 1. Increased stool within the colon. 2. Mild extrahepatic and intrahepatic biliary duct dilatation which is of uncertain etiology but appears to be stable from previous study. 3. Other findings believed to be nonacute as described above. Diagnostic code #3 This report was dictated in MDT
--- NOTE | 2020-01-12 19:03 | CR ---
Chest: Frontal view of the chest was obtained. Comparison: Prior chest x-ray of 10/26/19. Heart size and mediastinum are normal. Lungs show no acute parenchymal change. Bony structures are grossly intact. Impression: 1. Nothing acute is appreciated on frontal chest x-ray. Diagnostic code #1 This report was dictated in MDT
[2020-01-12] MEDS ORDERED: Sodium Chloride 0.9% 1,000 ML IV ONE (19:04)
== END 2020-01-12 20:07 | disposition home or self-care (01) ==
LOC: MW.ED 15:41
DX: R10.9 Unspecified abdominal pain (principal); J44.9 Chronic obstructive pulmonary disease, unspecified; F41.9 Anxiety disorder, unspecified; F32.9 Major depressive disorder, single episode, unspecified; Z79.899 Other long term (current) drug therapy; Z87.891 Personal history of nicotine dependence
CPT/HCPCS: 71045; 74177; 80053; 81003; 83690; 85025; 96361; 96374; 96375; 96376; 99284; J2270; J2405; J7030; Q9967

== ENCOUNTER 2020-02-08 22:01 | Observation (INO) | payer MEDICARE, OTHER ==
[2020-02-08] MEDS ORDERED: Sodium Chloride 0.9% 10 ML Syringe FLUSH PRN (22:09)
[2020-02-08] MEDS ORDERED: Sodium Chloride 0.9% 10 ML SDV IV PRN (22:09)
[2020-02-08] MEDS ORDERED: Sodium Chloride 0.9% 2.5 ML Syringe FLUSH PRN (22:09)
--- NOTE | 2020-02-08 22:10 | EDM.PDOC ---
ED HPI GENERAL MEDICAL PROBLEM - General Chief Complaint: Abdominal Pain Stated Complaint: POSSIBLE BOWEL OBSTRUCTION Time Seen by Provider: 02/08/20 22:10 Source of Information: Reports: Patient History Limitations: Reports: No Limitations - History of Present Illness INITIAL COMMENTS - FREE TEXT/NARRATIVE: This patient is a 59-year-old female with a past medical history of a parastomal hernia, perforated sigmoid diverticulitis requiring colostomy (2018) status post revision (September 2019), multiple small bowel obstructions, hyperlipidemia, anxiety, depression, COPD presenting to the emergency department with abdominal pain. She reports the onset of abdominal pain approximately 12 hours ago this morning. Located in the left upper quadrant of the abdomen, nonradiating, constant, worsening throughout the day. She reports nausea but denies any emesis, hematemesis, melena, hematochezia, dysuria, urinary frequency, or fever. No self treatment prior to arrival, no other complaints. luq Pain Score (Numeric/FACES): 7 - Related Data Allergies Allergy/AdvReac Type Severity Reaction Status Date / Time No Known Allergies Allergy Verified 02/08/20 22:20 Home Meds: Home Meds ALPRAZolam [Xanax] 2 mg PO TID PRN 05/29/18 [History] Albuterol/Ipratropium [Combivent Respimat] 1 puff IH QID PRN 05/29/18 [History] Budesonide [Pulmicort] 1 dose INH BEDTIME 11/04/18 [History] Fluticasone Propionate [Flonase] 2 puff NASBOTH DAILY 11/04/18 [History] busPIRone [Buspar] 15 mg PO BID 11/04/18 [History] Ondansetron [Zofran ODT] 4 mg PO Q6H PRN 08/04/19 [History] Rosuvastatin [Crestor] 5 mg PO BEDTIME 08/04/19 [History] Budesonide/Formoterol Fumarate [Symbicort 160-4.5 Mcg Inhaler] 6 gm IH BID 30 Days #1 [id number].[email or web address].[email or web address] 08/06/19 [Rx] Docusate Sodium [Colace] 100 mg PO BID 09/18/19 [History] Past Medical History HEENT History: Reports: None Cardiovascular History: Reports: Heart Murmur 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 Respiratory History: Reports: COPD Other Respiratory History: emphsyema Gastrointestinal History: Reports: Bowel Obstruction, Diverticulosis, Other ( See Below) (Colostomy status post revision) Other Gastrointestinal History: Bowel obstruction 2010, 2018, perforated colon in 2019 Genitourinary History: Reports: None 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: Musculoskeletal History: Reports: Arthritis Neurological History: Reports: None Psychiatric History: Reports: Anxiety, Depression, Panic Attack Endocrine/Metabolic History: Reports: None Hematologic History: Reports: Blood Transfusion(s) Immunologic History: Reports: None Oncologic (Cancer) History: Reports: None Dermatologic History: Reports: None - Infectious Disease History Infectious Disease History: Reports: None - Past Surgical History Head Surgeries/Procedures: Reports: None HEENT Surgical History: Reports: Tonsillectomy Cardiovascular Surgical History: Reports: Cardiac Ablation Respiratory Surgical History: Reports: None GI Surgical History: Reports: Appendectomy, Colonoscopy, Colostomy, Other (See Below) Other GI Surgeries/Procedures: Colostomy: reversed in [place] Female Surgical History: Reports: Section, Tubal Ligation Endocrine Surgical History: Reports: None Neurological Surgical History: Reports: None Musculoskeletal Surgical History: Reports: None Oncologic Surgical History: Reports: None Dermatological Surgical History: Reports: None Social & Family History - Family History Family Medical History: Noncontributory - Caffeine Use Caffeine Use: Reports: Coffee Other Caffeine Use: 3cups/day Caffeine Use Comment: 1/2 cup each day ED ROS GENERAL - Review of Systems Review Of Systems: See Below Constitutional: Denies: Fever HEENT: Reports: No Symptoms Respiratory: Denies: Shortness of Breath, Cough Cardiovascular: Denies: Chest Pain Endocrine: Reports: No Symptoms GI/Abdominal: Reports: Abdominal Pain, Nausea. Denies: Black Stool, Bloody Stool, Constipation, Diarrhea, Distension, Hematemesis, Hematochezia, Melena, Vomiting : Denies: Dysuria, Flank Pain, Frequency, Urgency, Urinary Retention Musculoskeletal: Reports: No Symptoms Skin: Reports: No Symptoms Neurological: Reports: No Symptoms Psychiatric: Reports: No Symptoms Hematologic/Lymphatic: Reports: No Symptoms Immunologic: Reports: No Symptoms ED EXAM, GI/ABD - Physical Exam Exam: See Below Text/Narrative:: All signs reviewed. Nursing notes reviewed. Constitutional: Awake, alert, non-distressed Head: Normocephalic, atraumatic Eyes: EOMI, PERRL at 3 mm bilaterally, conjunctiva normal, no discharge, no scleral icterus Ears, Nose, Throat: External ears and ears normal, moist oral mucosa Cardiovascular: Tachycardic, no R/M/G, 2+ radial pulses bilaterally, capillary refill less than 2 seconds Pulmonary: CTABL, normal work of breathing, no accessory muscle use Abdomen/GI: Soft, moderate tenderness in the left upper quadrant without guarding, nondistended, no rigidity, no masses. Midline vertical surgical scar. No CVA tenderness. Musculoskeletal: No deformities or edema Integumentary: Appropriate color for ethnicity, warm, dry, no pallor or jaundice , no rash Neurologic: Alert, answering questions appropriately, normal speech, no facial droop, moving all extremities well Psychiatric: Appropriate mood and affect, normal thought process Exam Limited By: No Limitations EKG INTERPRETATION EKG Date: 02/08/20 Time: 22:40 Rhythm: NSR Rate (Beats/Min): 99 [place]: Normal P-Wave: Present QRS: Normal ST-T: Normal QT: Normal Comparison: No Change (Comparison from 08/04/2019 - no changes.) Course - Vital Signs Text/Narrative:: 59-year-old female presenting with abdominal pain. On arrival she is hemodynamically stable, well-appearing. Mildly hypoxic with a background history of COPD, placed on low flow nasal cannula. IV access was established and labs were sent. Given fentanyl for pain along with Zofran and some p.o. Percocet. CBC is reassuring. Lactate is within normal limits. Electrolytes and renal function are normal except for mild hyperglycemia. LFTs are normal, troponin testing is negative, lipase is within normal limits. We pursued CT imaging of the abdomen/pelvis, which was concerning for a low-grade SBO which clinically correlates with her symptoms. We will plan for the patient to be admitted to the hospitalist service on observation status. I spoke with the accepting hospitalist Dr. Faulkner who agrees to admit. Transferred to the inpatient unit in good condition. Last Recorded V/S: Last Vital Signs Temp 36.3 C 02/08/20 22:17 Pulse 92 02/08/20 23:30 Resp 18 02/08/20 23:30 BP 137/78 02/08/20 23:30 Pulse Ox 98 02/08/20 23:30 - Orders/Labs/Meds Orders: Active Orders 24 hr Category Date Time Status Patient Status [ADT] Stat ADT 02/09/20 00:22 Active EKG 12 Lead [EKG Documentation Completion] [] STAT Care 02/08/20 22:16 Active Oxygen Therapy Adult [Oxygen Therapy, ED] [] Care 02/08/20 22:20 Active ASDIRECTED Sodium Chloride 0.9% [Normal Saline] Med 02/08/20 22:09 Active 10 ml IV ASDIRECTED PRN Sodium Chloride 0.9% [Saline Flush] Med 02/08/20 22:09 Active 10 ml FLUSH ASDIRECTED PRN Sodium Chloride 0.9% [Saline Flush] Med 02/08/20 22:09 Active 2.5 ml FLUSH ASDIRECTED PRN Peripheral IV Insertion Adult [OM.PC] Stat Oth 02/08/20 22:09 Ordered Medication Orders Sodium Chloride (Saline Flush) 10 ml FLUSH ASDIRECTED PRN PRN Reason: Keep Vein Open Last Admin: 02/08/20 22:24 Dose: 10 ml Sodium Chloride (Saline Flush) 2.5 ml FLUSH ASDIRECTED PRN PRN Reason: Keep Vein Open Last Admin: 02/08/20 22:24 Dose: 2.5 ml Sodium Chloride (Normal Saline) 10 ml IV ASDIRECTED PRN PRN Reason: IV Use Labs: Laboratory Tests 02/08/20 02/08/20 02/08/20 Range/Units 22:15 22:15 22:15 WBC 4.69 (4.0-11.0) K/uL RBC 4.52 (4.30-5.90) M/uL Hgb 13.2 (12.0-16.0) g/dL Hct 40.5 (36.0-46.0) % MCV 89.6 (80.0-98.0) fL MCH 29.2 (27.0-32.0) pg MCHC 32.6 (31.0-37.0) g/dL RDW Std Deviation 47.3 (28.0-62.0) fl RDW Coeff of Shaq 14 (11.0-15.0) % Plt Count 188 (150-400) K/uL MPV 9.40 (7.40-12.00) fL Neut % (Auto) 54.2 (48.0-80.0) % Lymph % (Auto) 35.2 (16.0-40.0) % Whitfield % (Auto) 8.3 (0.0-15.0) % Eos % (Auto) 1.7 (0.0-7.0) % Baso % (Auto) 0.6 (0.0-1.5) % Neut # (Auto) 2.5 (1.4-5.7) K/uL Lymph # (Auto) 1.7 (0.6-2.4) K/uL Whitfield # (Auto) 0.4 (0.0-0.8) K/uL Eos # (Auto) 0.1 (0.0-0.7) K/uL Baso # (Auto) 0.0 (0.0-0.1) K/uL Nucleated RBC % 0.0 /100WBC Nucleated RBCs # 0 K/uL Lactate 0.9 (0.20-2.00) mmol/L Sodium 140 (136-145) mmol/L Potassium 4.3 (3.5-5.1) mmol/L Chloride 104 (98-107) mmol/L Carbon Dioxide 27.8 (21.0-32.0) mmol/L BUN 10 (7.0-18.0) mg/dL Creatinine 0.8 (0.6-1.0) mg/dL Est Cr Clr Drug Dosing TNP Estimated GFR (MDRD) > 60.0 ml/min Glucose 108 H (74-106) mg/dL Calcium 9.5 (8.5-10.1) mg/dL Total Bilirubin 0.8 (0.2-1.0) mg/dL AST 21 (15-37) IU/L ALT 15 (14-63) IU/L Alkaline Phosphatase 77 (46-116) U/L Troponin I (0.000-0.056) ng/mL Total Protein 7.5 (6.4-8.2) g/dL Albumin 4.0 (3.4-5.0) g/dL Globulin 3.5 (2.6-4.0) g/dL Albumin/Globulin Ratio 1.1 (0.9-1.6) Lipase 43 L (73-393) U/L // Range/Units 22:15 WBC (4.0-11.0) K/uL RBC (4.30-5.90) M/uL Hgb (12.0-16.0) g/dL Hct (36.0-46.0) % MCV (80.0-98.0) fL MCH (27.0-32.0) pg MCHC (31.0-37.0) g/dL RDW Std Deviation (28.0-62.0) fl RDW Coeff of Shaq (11.0-15.0) % Plt Count (150-400) K/uL MPV (7.40-12.00) fL Neut % (Auto) (48.0-80.0) % Lymph % (Auto) (16.0-40.0) % Whitfield % (Auto) (0.0-15.0) % Eos % (Auto) (0.0-7.0) % Baso % (Auto) (0.0-1.5) % Neut # (Auto) (1.4-5.7) K/uL Lymph # (Auto) (0.6-2.4) K/uL Whitfield # (Auto) (0.0-0.8) K/uL Eos # (Auto) (0.0-0.7) K/uL Baso # (Auto) (0.0-0.1) K/uL Nucleated RBC % /100WBC Nucleated RBCs # K/uL Lactate (0.20-2.00) mmol/L Sodium (136-145) mmol/L Potassium (3.5-5.1) mmol/L Chloride (98-107) mmol/L Carbon Dioxide (21.0-32.0) mmol/L BUN (7.0-18.0) mg/dL Creatinine (0.6-1.0) mg/dL Est Cr Clr Drug Dosing Estimated GFR (MDRD) ml/min Glucose (74-106) mg/dL Calcium (8.5-10.1) mg/dL Total Bilirubin (0.2-1.0) mg/dL AST (15-37) IU/L ALT (14-63) IU/L Alkaline Phosphatase (46-116) U/L Troponin I < 0.050 (0.000-0.056) ng/mL Total Protein (6.4-8.2) g/dL Albumin (3.4-5.0) g/dL Globulin (2.6-4.0) g/dL Albumin/Globulin Ratio (0.9-1.6) Lipase (73-393) U/L Meds: Medications Generic Name Dose Route Start Last Admin Trade Name Freq PRN Reason Stop Dose Admin Sodium Chloride 10 ml 02/08/20 22:09 02/08/20 22:24 Saline Flush FLUSH 10 ml ASDIRECTED PRN Administration Keep Vein Open Sodium Chloride 2.5 ml 02/08/20 22:09 02/08/20 22:24 Saline Flush FLUSH 2.5 ml ASDIRECTED PRN Administration Keep Vein Open Sodium Chloride 10 ml 02/08/20 22:09 Normal Saline IV ASDIRECTED PRN IV Use Discontinued Medications Generic Name Dose Route Start Last Admin Trade Name Freq PRN Reason Stop Dose Admin Fentanyl 50 mcg 02/08/20 22:15 02/08/20 22:24 Fentanyl IVPUSH 02/08/20 22:16 50 mcg ONETIME ONE Administration Lactated Ringer's 1,000 mls @ 1,000 mls/hr 02/08/20 22:15 02/08/20 22:24 Ringers, Lactated IV 02/08/20 23:14 1,000 mls/hr .BOLUS ONE Administration Iopamidol 100 ml 02/09/20 00:17 02/09/20 00:17 Isovue-370 (76%) IVPUSH 02/09/20 00:18 100 ml ONETIME STA Administration Ondansetron HCl 4 mg 02/08/20 22:15 02/08/20 22:24 Zofran IVPUSH 02/08/20 22:16 4 mg ONETIME ONE Administration Oxycodone/Acetaminophen 2 tab 02/08/20 23:52 Percocet 325-5 Mg PO 02/08/20 23:53 ONETIME ONE - Re-Assessments/Exams Free Text/Narrative Re-Assessment/Exam: 02/09/20 00:30 I reevaluated the patient at 12:15 AM. Pain is mildly improved but she is still in discomfort. Nausea resolved. We will plan for admission to observation status under the hospitalist service. Departure - Departure Time of Disposition: 00:33 Disposition: Refer to Observation Condition: Good Clinical Impression: Small bowel obstruction - Discharge Information Referrals: Yaw Loza MD [Primary Care Provider] - Forms: ED Department Discharge Sepsis Event Note - Focused Exam Vital Signs: Vital Signs Temp Pulse Resp BP Pulse Ox 02/08/20 23:30 92 18 137/78 98 02/08/20 22:17 36.3 C 106 H 20 157/76 H 88 L Date Exam was Performed: 02/09/20 Time Exam was Performed: 00:30 - My Orders Last 24 Hours: My Active Orders 02/08/20 22:09 Sodium Chloride 0.9% [Normal Saline] 10 ml IV ASDIRECTED PRN Sodium Chloride 0.9% [Saline Flush] 10 ml FLUSH ASDIRECTED PRN Sodium Chloride 0.9% [Saline Flush] 2.5 ml FLUSH ASDIRECTED PRN Peripheral IV Insertion Adult [OM.PC] Stat 02/08/20 22:16 EKG 12 Lead [EKG Documentation Completion] [RC] STAT 02/08/20 22:20 Oxygen Therapy Adult [Oxygen Therapy, ED] [RC] ASDIRECTED 02/09/20 00:22 Patient Status [ADT] Stat - Assessment/Plan Last 24 Hours: My Active Orders 02/08/20 22:09 Sodium Chloride 0.9% [Normal Saline] 10 ml IV ASDIRECTED PRN Sodium Chloride 0.9% [Saline Flush] 10 ml FLUSH ASDIRECTED PRN Sodium Chloride 0.9% [Saline Flush] 2.5 ml FLUSH ASDIRECTED PRN Peripheral IV Insertion Adult [OM.PC] Stat 02/08/20 22:16 EKG 12 Lead [EKG Documentation Completion] [RC] STAT 02/08/20 22:20 Oxygen Therapy Adult [Oxygen Therapy, ED] [RC] ASDIRECTED 02/09/20 00:22 Patient Status [ADT] Stat
[2020-02-08] MEDS ORDERED: Lactated Ringers 1,000 ML IV ONE (22:15)
[2020-02-08] MEDS ORDERED: fentaNYL 50 MCG/ML SDV IVPUSH ONE (22:15)
[2020-02-08] MEDS ORDERED: Ondansetron 4 MG/2 ML SDV IVPUSH ONE (22:15)
[2020-02-08 22:53] LABS: BLOOD UREA NITROGEN,BUN 10 mg/dL (7.0-18.0); CARBON DIOXIDE,CO2 27.8 mmol/L (21.0-32.0); CHLORIDE,CL 104 mmol/L (98-107); GLUCOSE RANDOM 108 mg/dL (74-106); LIPASE 43 U/L (73-393); POTASSIUM,K 4.3 mmol/L (3.5-5.1); SODIUM,NA 140 mmol/L (136-145)
[2020-02-08] MEDS ORDERED: Acetaminophen/oxyCODONE 325-5 MG Tab PO ONE (23:52)
--- NOTE | 2020-02-09 00:05 | CT ---
INDICATION: Left upper quadrant abdominal pain TECHNIQUE: Axial images were obtained from the diaphragm to the pubic symphysis. Reformats were obtained in the coronal and sagittal plane. IV Contrast: 100 cc Isovue 370 Oral Contrast: None COMPARISON: Abdomen and pelvis CT 01/12/2020 FINDINGS: Lower chest: Minimal bibasilar discoid atelectasis. Liver: Unremarkable. Normal in size and attenuation. No masses. Gallbladder and bile ducts: Mild intrahepatic biliary dilatation although similar to the prior examination. Common duct measures 9 millimeters. No definite gallbladder wall thickening. Spleen: Unremarkable. Normal in size without mass. Pancreas: Unremarkable. No mass or inflammation. Adrenal glands: Unremarkable. No nodules. Kidneys: Symmetric renal enhancement with cyst at the medial aspect of the left kidney. Vasculature: Atherosclerosis without abdominal aortic aneurysm. GI tract: Stomach is decompressed. Bowel suture lines within the left abdomen with some borderline diameter loops of small bowel involving the mid to distal small bowel with other areas of decompressed small bowel. Unremarkable appendix. Pelvis: Unremarkable. Bones: Mild degenerative disc disease lumbar spine. IMPRESSION: 1. Status post intestinal surgery with borderline diameter loops of small bowel with other areas of decompressed small bowel. Differential diagnosis would include a low-grade small bowel obstruction versus an enteritis/ileitis. Please note that all CT scans at this facility use dose modulation, iterative reconstruction, and/or weight-based dosing when appropriate to reduce radiation dose to as low as reasonably achievable. Dictated by Titus Tran MD @ Feb 08 2020 11:50PM Signed by Dr. iTtus Tran @ Feb 09 2020 12:03AM
[2020-02-09] MEDS ORDERED: Iopamidol 755 Mg/ML 100 ML Bottle IVPUSH STA (00:17)
[2020-02-09] MEDS ORDERED: Lactated Ringers 1,000 ML IV SCH (02:00)
[2020-02-09] MEDS ORDERED: Ondansetron 4 MG/2 ML SDV IVPUSH PRN (02:01)
[2020-02-09] MEDS ORDERED: 50% Dextrose in Water 50 ML Syringe IVPUSH PRN (02:09)
[2020-02-09] MEDS: HYDROmorphone 1 MG/ML Syringe IVPUSH PRN ×5 (02:52→21:11)
[2020-02-09] MEDS: LORazepam 2 MG/ML SDV IVPUSH PRN ×4 (02:54→23:48)
[2020-02-09 06:01] LABS: BLOOD UREA NITROGEN,BUN 10 mg/dL (7.0-18.0); CARBON DIOXIDE,CO2 27.9 mmol/L (21.0-32.0); CHLORIDE,CL 106 mmol/L (98-107); GLUCOSE RANDOM 78 mg/dL (74-106); SODIUM,NA 141 mmol/L (136-145)
--- NOTE | 2020-02-09 07:59 | PCM.HP.2 ---
H&P History of Present Illness - General Date of Service: 02/09/20 Admit Problem/Dx: Admission Diagnosis/Problem Admission Diagnosis/Problem Small bowel obstruction Source of Information: Patient History Limitations: Reports: No Limitations - History of Present Illness Initial Comments - Free Text/Narative: This 59 year old female with pmh of parastomal hernia, perforated sigmoid diverticulitis requiring colostomy (2018) status post revision (September 2019), multiple small bowel obstructions, hyperlipidemia, anxiety, depression, COPD presented to the ED with abdominal pain and N/V for the last day. She reports she started having LUQ pain with no BM or flatus x 2 days. She knows she is high risk for SBO as she has had many. She denies fevers or chills. No chest pain or SOB. No dysuria or focal neurological deficits. She reports she has been doing well for the last couple months. She has not follow with Dr Jones after revision in September. In the ED, no leukocytosis noted. BMP WNL as well as lipase and LFTs/ CT of her abdomen/pelvis was obtained this revealed SBO, no perforation or abscess. She was treated with pain medication and nausea meds in the ED. Admitted for observation for SBO. luq Pain Score (Numeric/FACES): 5 - Related Data Allergies/Adverse Reactions: Allergies Allergy/AdvReac Type Severity Reaction Status Date / Time No Known Allergies Allergy Verified 02/09/20 01:26 Home Medications: Home Meds ALPRAZolam [Xanax] 2 mg PO TID PRN 05/29/18 [History] Albuterol/Ipratropium [Combivent Respimat] 1 puff IH QID PRN 05/29/18 [History] Budesonide [Pulmicort] 1 dose INH BEDTIME 11/04/18 [History] Fluticasone Propionate [Flonase] 2 puff NASBOTH DAILY 11/04/18 [History] busPIRone [Buspar] 15 mg PO BID 11/04/18 [History] Ondansetron [Zofran ODT] 4 mg PO Q6H PRN 08/04/19 [History] Rosuvastatin [Crestor] 5 mg PO BEDTIME 08/04/19 [History] Budesonide/Formoterol Fumarate [Symbicort 160-4.5 Mcg Inhaler] 6 gm IH BID 30 Days #1 hfa.aer.ad 08/06/19 [Rx] Docusate Sodium [Colace] 100 mg PO BID 09/18/19 [History] Ipratropium/Albuterol Sulfate [Iprat-Albut 0.5-3(2.5) MG/3 ML] 3 ml NEB TID PRN 02/09/20 [History] Past Medical History HEENT History: Reports: None Cardiovascular History: Reports: Heart Murmur 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 Respiratory History: Reports: COPD Other Respiratory History: emphsyema Gastrointestinal History: Reports: Bowel Obstruction, Diverticulosis, Other ( See Below) Other Gastrointestinal History: Bowel obstruction 2010, 2018, perforated colon in 2019 Genitourinary History: Reports: None 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: Reports: Musculoskeletal History: Reports: Arthritis Neurological History: Reports: None Psychiatric History: Reports: Anxiety, Depression, Panic Attack Endocrine/Metabolic History: Reports: None Hematologic History: Reports: Blood Transfusion(s) Immunologic History: Reports: None Oncologic (Cancer) History: Reports: None Dermatologic History: Reports: None - Infectious Disease History Infectious Disease History: Reports: None - Past Surgical History Head Surgeries/Procedures: Reports: None HEENT Surgical History: Reports: Tonsillectomy Cardiovascular Surgical History: Reports: Cardiac Ablation Respiratory Surgical History: Reports: None GI Surgical History: Reports: Appendectomy, Colonoscopy, Colostomy, Other (See Below) Other GI Surgeries/Procedures: Colostomy: reversed in [place] Female Surgical History: Reports: Section, Tubal Ligation Endocrine Surgical History: Reports: None Neurological Surgical History: Reports: None Musculoskeletal Surgical History: Reports: None Oncologic Surgical History: Reports: None Dermatological Surgical History: Reports: None Social & Family History - Family History Family Medical History: Noncontributory - Tobacco Use Smoking Status *Q: Former Smoker Used Tobacco, but Quit: No Tobacco Use Comment: Pt stated that she quit smoking for 5 yrs ago. Smoker for 30 yrs before. - Caffeine Use Caffeine Use: Reports: Coffee, Tea Other Caffeine Use: 3cups/day Caffeine Use Comment: 1/2 cup each day - Recreational Drug Use Recreational Drug Use: No H&P Review of Systems - Review of Systems: Review Of Systems: Comprehensive ROS is negative, except as noted in HPI. General: Denies: Fever, Chills HEENT: Reports: No Symptoms Pulmonary: Reports: No Symptoms. Denies: Shortness of Breath Cardiovascular: Reports: No Symptoms. Denies: Chest Pain Gastrointestinal: Reports: Abdominal Pain, Constipation, Nausea, Vomiting. Denies: Diarrhea Genitourinary: Reports: No Symptoms. Denies: Dysuria, Frequency Musculoskeletal: Reports: No Symptoms Skin: Reports: No Symptoms Psychiatric: Reports: No Symptoms Neurological: Reports: No Symptoms Hematologic/Lymphatic: Reports: No Symptoms Immunologic: Reports: No Symptoms Exam - Exam Exam: See Below - Vital Signs Vital Signs: Last Vital Signs Temp 97.5 F 02/09/20 04:32 Pulse 91 02/09/20 04:32 Resp 20 02/09/20 04:32 BP 129/63 02/09/20 04:32 Pulse Ox 93 L 02/09/20 04:32 Weight: 57.8 kg - Exam General: Alert, Oriented, Cooperative HEENT: Conjunctiva Clear, Mucosa Moist & Lehr, Posterior Pharynx Clear Lungs: Clear to Auscultation, Normal Respiratory Effort Cardiovascular: Regular Rate, Regular Rhythm GI/Abdominal Exam: Normal Bowel Sounds, Soft, Tender (LUQ) Back Exam: Normal Inspection, Full Range of Motion Extremities: Normal Inspection, Normal Range of Motion, Non-Tender, No Pedal Edema Neuro Extensive - Mental Status: Alert, Oriented x3 Neuro Extensive - Motor, Sensory, Reflexes: CN II-XII Intact Psychiatric: Alert, Normal Affect, Normal Mood - Patient Data Lab Results Last 24 hrs: Laboratory Results - last 24 hr 02/08/20 02/08/20 02/08/20 Range/Units 22:15 22:15 22:15 WBC 4.69 (4.0-11.0) K/uL RBC 4.52 (4.30-5.90) M/uL Hgb 13.2 (12.0-16.0) g/dL Hct 40.5 (36.0-46.0) % MCV 89.6 (80.0-98.0) fL MCH 29.2 (27.0-32.0) pg MCHC 32.6 (31.0-37.0) g/dL RDW Std Deviation 47.3 (28.0-62.0) fl RDW Coeff of Shaq 14 (11.0-15.0) % Plt Count 188 (150-400) K/uL MPV 9.40 (7.40-12.00) fL Neut % (Auto) 54.2 (48.0-80.0) % Lymph % (Auto) 35.2 (16.0-40.0) % Smith % (Auto) 8.3 (0.0-15.0) % Eos % (Auto) 1.7 (0.0-7.0) % Baso % (Auto) 0.6 (0.0-1.5) % Neut # (Auto) 2.5 (1.4-5.7) K/uL Lymph # (Auto) 1.7 (0.6-2.4) K/uL Smith # (Auto) 0.4 (0.0-0.8) K/uL Eos # (Auto) 0.1 (0.0-0.7) K/uL Baso # (Auto) 0.0 (0.0-0.1) K/uL Nucleated RBC % 0.0 /100WBC Nucleated RBCs # 0 K/uL Lactate 0.9 (0.20-2.00) mmol/L Sodium 140 (136-145) mmol/L Potassium 4.3 (3.5-5.1) mmol/L Chloride 104 (98-107) mmol/L Carbon Dioxide 27.8 (21.0-32.0) mmol/L BUN 10 (7.0-18.0) mg/dL Creatinine 0.8 (0.6-1.0) mg/dL Est Cr Clr Drug Dosing TNP Estimated GFR (MDRD) > 60.0 ml/min Glucose 108 H (74-106) mg/dL POC Glucose (60-110) mg/dL Calcium 9.5 (8.5-10.1) mg/dL Phosphorus (2.6-4.7) mg/dL Magnesium (1.8-2.4) mg/dL Total Bilirubin 0.8 (0.2-1.0) mg/dL AST 21 (15-37) IU/L ALT 15 (14-63) IU/L Alkaline Phosphatase 77 (46-116) U/L Troponin I (0.000-0.056) ng/mL Total Protein 7.5 (6.4-8.2) g/dL Albumin 4.0 (3.4-5.0) g/dL Globulin 3.5 (2.6-4.0) g/dL Albumin/Globulin Ratio 1.1 (0.9-1.6) Lipase 43 L (73-393) U/L 02/08/20 02/09/20 02/09/20 Range/Units 22:15 05:15 05:15 WBC 3.80 L (4.0-11.0) K/uL RBC 3.87 L (4.30-5.90) M/uL Hgb 11.1 L (12.0-16.0) g/dL Hct 34.8 L (36.0-46.0) % MCV 89.9 (80.0-98.0) fL MCH 28.7 (27.0-32.0) pg MCHC 31.9 (31.0-37.0) g/dL RDW Std Deviation 47.3 (28.0-62.0) fl RDW Coeff of Shaq 14 (11.0-15.0) % Plt Count 159 (150-400) K/uL MPV 9.60 (7.40-12.00) fL Neut % (Auto) 46.3 L (48.0-80.0) % Lymph % (Auto) 40.8 H (16.0-40.0) % Smith % (Auto) 10.5 (0.0-15.0) % Eos % (Auto) 2.1 (0.0-7.0) % Baso % (Auto) 0.3 (0.0-1.5) % Neut # (Auto) 1.8 (1.4-5.7) K/uL Lymph # (Auto) 1.6 (0.6-2.4) K/uL Smith # (Auto) 0.4 (0.0-0.8) K/uL Eos # (Auto) 0.1 (0.0-0.7) K/uL Baso # (Auto) 0.0 (0.0-0.1) K/uL Nucleated RBC % 0.0 /100WBC Nucleated RBCs # 0 K/uL Lactate (0.20-2.00) mmol/L Sodium 141 (136-145) mmol/L Potassium 4.0 (3.5-5.1) mmol/L Chloride 106 (98-107) mmol/L Carbon Dioxide 27.9 (21.0-32.0) mmol/L BUN 10 (7.0-18.0) mg/dL Creatinine 0.8 (0.6-1.0) mg/dL Est Cr Clr Drug Dosing 67.38 Estimated GFR (MDRD) > 60.0 ml/min Glucose 78 (74-106) mg/dL POC Glucose (60-110) mg/dL Calcium 8.9 (8.5-10.1) mg/dL Phosphorus 4.7 (2.6-4.7) mg/dL Magnesium 2.1 (1.8-2.4) mg/dL Total Bilirubin (0.2-1.0) mg/dL AST (15-37) IU/L ALT (14-63) IU/L Alkaline Phosphatase (46-116) U/L Troponin I < 0.050 (0.000-0.056) ng/mL Total Protein (6.4-8.2) g/dL Albumin (3.4-5.0) g/dL Globulin (2.6-4.0) g/dL Albumin/Globulin Ratio (0.9-1.6) Lipase (73-393) U/L 02/09/20 02/09/20 Range/Units 06:08 07:18 WBC (4.0-11.0) K/uL RBC (4.30-5.90) M/uL Hgb (12.0-16.0) g/dL Hct (36.0-46.0) % MCV (80.0-98.0) fL MCH (27.0-32.0) pg MCHC (31.0-37.0) g/dL RDW Std Deviation (28.0-62.0) fl RDW Coeff of Shaq (11.0-15.0) % Plt Count (150-400) K/uL MPV (7.40-12.00) fL Neut % (Auto) (48.0-80.0) % Lymph % (Auto) (16.0-40.0) % Smith % (Auto) (0.0-15.0) % Eos % (Auto) (0.0-7.0) % Baso % (Auto) (0.0-1.5) % Neut # (Auto) (1.4-5.7) K/uL Lymph # (Auto) (0.6-2.4) K/uL Smith # (Auto) (0.0-0.8) K/uL Eos # (Auto) (0.0-0.7) K/uL Baso # (Auto) (0.0-0.1) K/uL Nucleated RBC % /100WBC Nucleated RBCs # K/uL Lactate (0.20-2.00) mmol/L Sodium (136-145) mmol/L Potassium (3.5-5.1) mmol/L Chloride (98-107) mmol/L Carbon Dioxide (21.0-32.0) mmol/L BUN (7.0-18.0) mg/dL Creatinine (0.6-1.0) mg/dL Est Cr Clr Drug Dosing Estimated GFR (MDRD) ml/min Glucose (74-106) mg/dL POC Glucose 72 75 (60-110) mg/dL Calcium (8.5-10.1) mg/dL Phosphorus (2.6-4.7) mg/dL Magnesium (1.8-2.4) mg/dL Total Bilirubin (0.2-1.0) mg/dL AST (15-37) IU/L ALT (14-63) IU/L Alkaline Phosphatase (46-116) U/L Troponin I (0.000-0.056) ng/mL Total Protein (6.4-8.2) g/dL Albumin (3.4-5.0) g/dL Globulin (2.6-4.0) g/dL Albumin/Globulin Ratio (0.9-1.6) Lipase (73-393) U/L Result Diagrams: 02/09/20 05:15 02/09/20 05:15 Sepsis Event Note - Evaluation Sepsis Screening Result: No Definite Risk - Focused Exam Vital Signs: Vital Signs Temp Pulse Resp BP Pulse Ox Pulse Ox 02/09/20 04:32 97.5 F 91 20 129/63 93 L 02/09/20 04:00 97.5 F 91 18 129/63 93 L 02/09/20 01:15 97.4 F 101 H 18 135/72 92 L 92 L 02/08/20 23:30 92 18 137/78 98 02/08/20 22:17 97.3 F 106 H 20 157/76 H 88 L Date Exam was Performed: 02/09/20 Time Exam was Performed: 14:08 - Problem List (1) Small bowel obstruction SNOMED Code(s): 716360587 ICD Code: K56.609 - UNSP INTESTNL OBST, UNSP TO PARTIAL VERSUS COMPLETE OBST Status: Acute Current Visit: Yes (2) Abdominal pain SNOMED Code(s): 66480688 ICD Code: R10.9 - UNSPECIFIED ABDOMINAL PAIN Status: Acute Current Visit : No (3) Diverticulitis large intestine SNOMED Code(s): 2112576 ICD Code: K57.32 - DVTRCLI OF LG INT W/O PERFORATION OR ABSCESS W/O BLEEDING Status: Chronic Current Visit: Yes (4) Hx of colostomy SNOMED Code(s): 413395262 ICD Code: [id number] - Status: Chronic Current Visit: Yes (5) COPD (chronic obstructive pulmonary disease) SNOMED Code(s): 36874720 ICD Code: J44.9 - CHRONIC OBSTRUCTIVE PULMONARY DISEASE, UNSPECIFIED Status : Chronic Priority: Medium Current Visit: No Qualifiers: COPD type: unspecified COPD Qualified Code(s): J44.9 - Chronic obstructive pulmonary disease, unspecified (6) Parastomal hernia SNOMED Code(s): 982199329 ICD Code: K43.5 - PARASTOMAL HERNIA WITHOUT OBSTRUCTION OR GANGRENE Status : Chronic Priority: High Current Visit: No Qualifiers: Obstruction and gangrene presence: without obstruction or gangrene Qualified Code(s): K43.5 - Parastomal hernia without obstruction or gangrene Problem List Initiated/Reviewed/Updated: Yes Orders Last 24hrs: Active Orders 24 hr Category Date Time Status Patient Status [ADT] Stat ADT 02/09/20 00:22 Active Accu Check [Blood Glucose Check, Bedside] [RC] Q6HR Care 02/09/20 06:00 Active Intake and Output [RC] QSHIFT Care 02/09/20 07:56 Ordered Oxygen Therapy [RC] PRN Care 02/09/20 07:56 Ordered Up With Assistance [RC] ASDIRECTED Care 02/09/20 07:56 Ordered VTE/DVT Education [RC] PER UNIT ROUTINE Care 02/09/20 07:56 Ordered Vital Signs [RC] Q4H Care 02/09/20 01:58 Active NPO [Nothing Per Oral Diet] [DIET] Diet 02/09/20 Breakfast Active Abdomen 2V AP Flat Upright [CR] Timed Exams 02/10/20 07:00 Ordered BASIC METABOLIC PANEL,BMP [CHEM] AM Lab 02/10/20 05:11 Ordered BASIC METABOLIC PANEL,BMP [CHEM] AM Lab 02/11/20 05:11 Ordered BASIC METABOLIC PANEL,BMP [CHEM] AM Lab 02/12/20 05:11 Ordered CBC WITH AUTO DIFF [HEME] AM Lab 02/10/20 05:11 Ordered CBC WITH AUTO DIFF [HEME] AM Lab 02/11/20 05:11 Ordered CBC WITH AUTO DIFF [HEME] AM Lab 02/12/20 05:11 Ordered MAGNESIUM [CHEM] AM Lab 02/10/20 05:11 Ordered MAGNESIUM [CHEM] AM Lab 02/11/20 05:11 Ordered MAGNESIUM [CHEM] AM Lab 02/12/20 05:11 Ordered Dextrose 5%-0.45% NaCl [Dextrose 5%-1/2 NS] 1,000 ml Med 02/09/20 08:00 Ordered IV Q8H Dextrose 50% in Water Med 02/09/20 02:09 Active 25 ml IVPUSH ONETIME PRN Enoxaparin [Lovenox] Med 02/09/20 08:00 Ordered 40 mg SUBCUT Q24H HYDROmorphone [Dilaudid] Med 02/09/20 02:02 Active 1 mg IVPUSH Q4H PRN LORazepam [Ativan] Med 02/09/20 02:04 Active 0.5 mg IVPUSH Q6H PRN Ondansetron [Zofran] Med 02/09/20 02:01 Active 4 mg IVPUSH Q4H PRN Pantoprazole [ProTONIX IV] 40 mg Med 02/09/20 09:00 Active Sodium Chloride 0.9% [Normal Saline] 10 ml IV DAILY Sodium Chloride 0.9% [Normal Saline] Med 02/08/20 22:09 Active 10 ml IV ASDIRECTED PRN Sodium Chloride 0.9% [Saline Flush] Med 02/08/20 22:09 Active 10 ml FLUSH ASDIRECTED PRN Sodium Chloride 0.9% [Saline Flush] Med 02/08/20 22:09 Active 2.5 ml FLUSH ASDIRECTED PRN Peripheral IV Insertion Adult [OM.PC] Stat Oth 02/08/20 22:09 Ordered Resuscitation Status Routine Resus Stat 02/09/20 07:56 Ordered Medication Orders Dextrose/Water (Dextrose 50% In Water) 25 ml IVPUSH ONETIME PRN PRN Reason: Hypoglycemia Enoxaparin Sodium (Lovenox) 40 mg SUBCUT Q24H CLARA Hydromorphone HCl (Dilaudid) 1 mg IVPUSH Q4H PRN PRN Reason: Pain (severe 7-10) Last Admin: 02/09/20 07:04 Dose: 1 mg Admin: 02/09/20 02:52 Dose: 1 mg Pantoprazole Sodium 40 mg/ (Sodium Chloride) 10 mls @ 300 mls/hr IV DAILY CLARA Dextrose/Sodium Chloride (Dextrose 5%-1/2 Ns) 1,000 mls @ 125 mls/hr IV Q8H CLARA Lorazepam (Ativan) 0.5 mg IVPUSH Q6H PRN PRN Reason: Anxiety Last Admin: 02/09/20 02:54 Dose: 0.5 mg Ondansetron HCl (Zofran) 4 mg IVPUSH Q4H PRN PRN Reason: Nausea/Vomitting Sodium Chloride (Saline Flush) 10 ml FLUSH ASDIRECTED PRN PRN Reason: Keep Vein Open Last Admin: 02/08/20 22:24 Dose: 10 ml Sodium Chloride (Saline Flush) 2.5 ml FLUSH ASDIRECTED PRN PRN Reason: Keep Vein Open Last Admin: 02/08/20 22:24 Dose: 2.5 ml Sodium Chloride (Normal Saline) 10 ml IV ASDIRECTED PRN PRN Reason: IV Use Assessment/Plan Comment:: This 59 year old female admitted with SBO 1. SBO - Extensive abdominal surgical history and frequent SBO - Conservative therapy for now - Passing flatus this morning, no BM - NPO with ice chips for now - IVFs - Analgesics and antiemetics PRN for pain and nausea - Consult Dr Nance, I appreciate his assistance with this patient - Encourage ambulation - Protonix 40 mg IV daily VTE prophylaxis: Lovenox Dispo: 2-3 days - Mortality Measure Prognosis:: Good
[2020-02-09] MEDS: Dextrose 5%-0.45% NaCl 1,000 ML IV SCH ×2 (08:40→17:02)
[2020-02-09] MEDS: Enoxaparin 40 MG/0.4 ML Syringe SUBCUT SCH (08:47)
[2020-02-09] MEDS: Pantoprazole 40 MG in Sodium Chloride 0.9% 10 ML IV SCH (10:14)
--- NOTE | 2020-02-09 13:47 | PCM.SN.2 ---
- Free Text/Narrative Note: pt seen, chart reviewed; another episode of borderline sbo; if emisis, insert ngt; keep K above 4 and avoid narcotic, if possible, to avoid chemical ileus; pt has not been back to fu w her surgeon after 5 month; she would benefit from doing that; keep npo for a day or two; will follow pt w you [id number]
[2020-02-09] MEDS: Acetaminophen 325 MG Tab PO PRN (16:55)
[2020-02-09] MEDS: Docusate Sodium 100 MG Cap PO SCH (21:11)
[2020-02-10] MEDS: HYDROmorphone 1 MG/ML Syringe IVPUSH PRN ×6 (01:15→23:17)
[2020-02-10] MEDS: Dextrose 5%-0.45% NaCl 1,000 ML IV SCH ×4 (01:16→21:24)
[2020-02-10] MEDS ORDERED: Albuterol/Ipratropium 3.0-0.5 MG/3 ML Neb Soln NEB PRN (01:41)
[2020-02-10] MEDS: LORazepam 2 MG/ML SDV IVPUSH PRN ×3 (05:59→19:01)
[2020-02-10 06:09] LABS: BLOOD UREA NITROGEN,BUN 5 mg/dL (7.0-18.0); CARBON DIOXIDE,CO2 29.2 mmol/L (21.0-32.0); CHLORIDE,CL 106 mmol/L (98-107); GLUCOSE RANDOM 93 mg/dL (74-106); POTASSIUM,K 3.5 mmol/L (3.5-5.1); SODIUM,NA 142 mmol/L (136-145)
--- NOTE | 2020-02-10 07:58 | CR ---
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 Degenerative changes of the spine. No significant abnormal calcifications. Nonspecific bowel-gas pattern. At least by plain film, the appearance does not warrant the diagnosis of a small-bowel obstruction. Impression: Nonspecific bowel gas pattern. By plain film, the appearance does not warrant the diagnosis of a small-bowel obstruction Dictated by Lyle Fisher MD @ Feb 10 2020 7:56AM Signed by Dr. Lyle Fisher @ Feb 10 2020 7:58AM
--- NOTE | 2020-02-10 08:12 | PCM.PN ---
- General Info Date of Service: 02/10/20 Admission Dx/Problem (Free Text): Admission Diagnosis/Problem Admission Diagnosis/Problem Small bowel obstruction Subjective Update: Tolerating CL diet, still has LUQ pain. Becomes very anxious about stopping or spreading out pain medications. - Review of Systems General: Reports: No Symptoms. Denies: Weakness, Fatigue, Malaise Pulmonary: Reports: No Symptoms. Denies: Shortness of Breath Cardiovascular: Reports: No Symptoms. Denies: Chest Pain Gastrointestinal: Reports: Abdominal Pain (LUQ). Denies: Nausea, Vomiting Genitourinary: Reports: No Symptoms. Denies: Dysuria, Frequency Musculoskeletal: Reports: No Symptoms Skin: Reports: No Symptoms Neurological: Reports: No Symptoms Psychiatric: Reports: No Symptoms - Patient Data Vitals - Most Recent: Last Vital Signs Temp 99.4 F 02/10/20 07:00 Pulse 96 02/10/20 07:00 Resp 20 02/10/20 07:00 BP 143/84 H 02/10/20 07:00 Pulse Ox 95 02/10/20 07:00 Weight - Most Recent: 57.8 kg I&O - Last 24 Hours: Intake & Output 02/09/20 02/10/20 02/10/20 22:59 06:59 14:59 Intake Total 1020 150 Output Total 2100 1700 Balance -1080 -1550 Lab Results Last 24 Hours: Laboratory Results - last 24 hr 02/09/20 02/09/20 02/09/20 Range/Units 09:57 12:22 18:02 WBC (4.0-11.0) K/uL RBC (4.30-5.90) M/uL Hgb (12.0-16.0) g/dL Hct (36.0-46.0) % MCV (80.0-98.0) fL MCH (27.0-32.0) pg MCHC (31.0-37.0) g/dL RDW Std Deviation (28.0-62.0) fl RDW Coeff of Shaq (11.0-15.0) % Plt Count (150-400) K/uL MPV (7.40-12.00) fL Neut % (Auto) (48.0-80.0) % Lymph % (Auto) (16.0-40.0) % [place] % (Auto) (0.0-15.0) % Eos % (Auto) (0.0-7.0) % Baso % (Auto) (0.0-1.5) % Neut # (Auto) (1.4-5.7) K/uL Lymph # (Auto) (0.6-2.4) K/uL [place] # (Auto) (0.0-0.8) K/uL Eos # (Auto) (0.0-0.7) K/uL Baso # (Auto) (0.0-0.1) K/uL Nucleated RBC % /100WBC Nucleated RBCs # K/uL Sodium (136-145) mmol/L Potassium (3.5-5.1) mmol/L Chloride (98-107) mmol/L Carbon Dioxide (21.0-32.0) mmol/L BUN (7.0-18.0) mg/dL Creatinine (0.6-1.0) mg/dL Est Cr Clr Drug Dosing mL/min Estimated GFR (MDRD) ml/min Glucose (74-106) mg/dL POC Glucose 97 97 102 (60-110) mg/dL Calcium (8.5-10.1) mg/dL Magnesium (1.8-2.4) mg/dL 02/09/20 02/10/20 02/10/20 Range/Units 23:56 05:35 05:35 WBC 5.29 (4.0-11.0) K/uL RBC 4.28 L (4.30-5.90) M/uL Hgb 12.3 (12.0-16.0) g/dL Hct 38.3 (36.0-46.0) % MCV 89.5 (80.0-98.0) fL MCH 28.7 (27.0-32.0) pg MCHC 32.1 (31.0-37.0) g/dL RDW Std Deviation 47.0 (28.0-62.0) fl RDW Coeff of Shaq 14 (11.0-15.0) % Plt Count 188 (150-400) K/uL MPV 9.60 (7.40-12.00) fL Neut % (Auto) 54.8 (48.0-80.0) % Lymph % (Auto) 31.0 (16.0-40.0) % [place] % (Auto) 11.9 (0.0-15.0) % Eos % (Auto) 2.1 (0.0-7.0) % Baso % (Auto) 0.2 (0.0-1.5) % Neut # (Auto) 2.9 (1.4-5.7) K/uL Lymph # (Auto) 1.6 (0.6-2.4) K/uL [place] # (Auto) 0.6 (0.0-0.8) K/uL Eos # (Auto) 0.1 (0.0-0.7) K/uL Baso # (Auto) 0.0 (0.0-0.1) K/uL Nucleated RBC % 0.0 /100WBC Nucleated RBCs # 0 K/uL Sodium 142 (136-145) mmol/L Potassium 3.5 (3.5-5.1) mmol/L Chloride 106 (98-107) mmol/L Carbon Dioxide 29.2 (21.0-32.0) mmol/L BUN 5 L (7.0-18.0) mg/dL Creatinine 0.8 (0.6-1.0) mg/dL Est Cr Clr Drug Dosing 67.38 mL/min Estimated GFR (MDRD) > 60.0 ml/min Glucose 93 (74-106) mg/dL POC Glucose 102 (60-110) mg/dL Calcium 9.0 (8.5-10.1) mg/dL Magnesium 1.9 (1.8-2.4) mg/dL 02/10/20 Range/Units 06:07 WBC (4.0-11.0) K/uL RBC (4.30-5.90) M/uL Hgb (12.0-16.0) g/dL Hct (36.0-46.0) % MCV (80.0-98.0) fL MCH (27.0-32.0) pg MCHC (31.0-37.0) g/dL RDW Std Deviation (28.0-62.0) fl RDW Coeff of Shaq (11.0-15.0) % Plt Count (150-400) K/uL MPV (7.40-12.00) fL Neut % (Auto) (48.0-80.0) % Lymph % (Auto) (16.0-40.0) % [place] % (Auto) (0.0-15.0) % Eos % (Auto) (0.0-7.0) % Baso % (Auto) (0.0-1.5) % Neut # (Auto) (1.4-5.7) K/uL Lymph # (Auto) (0.6-2.4) K/uL [place] # (Auto) (0.0-0.8) K/uL Eos # (Auto) (0.0-0.7) K/uL Baso # (Auto) (0.0-0.1) K/uL Nucleated RBC % /100WBC Nucleated RBCs # K/uL Sodium (136-145) mmol/L Potassium (3.5-5.1) mmol/L Chloride (98-107) mmol/L Carbon Dioxide (21.0-32.0) mmol/L BUN (7.0-18.0) mg/dL Creatinine (0.6-1.0) mg/dL Est Cr Clr Drug Dosing mL/min Estimated GFR (MDRD) ml/min Glucose (74-106) mg/dL POC Glucose 88 (60-110) mg/dL Calcium (8.5-10.1) mg/dL Magnesium (1.8-2.4) mg/dL Med Orders - Current: Current Medications Acetaminophen (Tylenol) 650 mg PO Q4H PRN PRN Reason: Pain Last Admin: 02/09/20 16:55 Dose: 650 mg Albuterol/Ipratropium (Duoneb 3.0-0.5 Mg/3 Ml) 3 ml NEB Q6HRRT PRN PRN Reason: Wheezing Dextrose/Water (Dextrose 50% In Water) 25 ml IVPUSH ONETIME PRN PRN Reason: Hypoglycemia Docusate Sodium (Colace) 100 mg PO BID [facility] Last Admin: 02/09/20 21:11 Dose: 100 mg Enoxaparin Sodium (Lovenox) 40 mg SUBCUT Q24H [facility] Last Admin: 02/09/20 08:47 Dose: 40 mg Hydromorphone HCl (Dilaudid) 1 mg IVPUSH Q4H PRN PRN Reason: Pain (severe 7-10) Last Admin: 02/10/20 05:58 Dose: 1 mg Pantoprazole Sodium 40 mg/ (Sodium Chloride) 10 mls @ 300 mls/hr IV DAILY [facility] Last Admin: 02/09/20 10:14 Dose: 300 mls/hr Dextrose/Sodium Chloride (Dextrose 5%-1/2 Ns) 1,000 mls @ 125 mls/hr IV Q8H [facility] Last Admin: 02/10/20 01:16 Dose: 125 mls/hr Lorazepam (Ativan) 0.5 mg IVPUSH Q6H PRN PRN Reason: Anxiety Last Admin: 02/10/20 05:59 Dose: 0.5 mg Ondansetron HCl (Zofran) 4 mg IVPUSH Q4H PRN PRN Reason: Nausea/Vomitting Sodium Chloride (Saline Flush) 10 ml FLUSH ASDIRECTED PRN PRN Reason: Keep Vein Open Last Admin: 02/08/20 22:24 Dose: 10 ml Sodium Chloride (Saline Flush) 2.5 ml FLUSH ASDIRECTED PRN PRN Reason: Keep Vein Open Last Admin: 02/08/20 22:24 Dose: 2.5 ml Sodium Chloride (Normal Saline) 10 ml IV ASDIRECTED PRN PRN Reason: IV Use Discontinued Medications Fentanyl (Fentanyl) 50 mcg IVPUSH ONETIME ONE Stop: 02/08/20 22:16 Last Admin: 02/08/20 22:24 Dose: 50 mcg Lactated Ringer's (Ringers, Lactated) 1,000 mls @ 1,000 mls/hr IV .BOLUS ONE Stop: 02/08/20 23:14 Last Admin: 02/08/20 22:24 Dose: 1,000 mls/hr Lactated Ringer's (Ringers, Lactated) 1,000 mls @ 125 mls/hr IV ASDIRECTED [facility] Last Admin: 02/09/20 02:48 Dose: 125 mls/hr Iopamidol (Isovue-370 (76%)) 100 ml IVPUSH ONETIME STA Stop: 02/09/20 00:18 Last Admin: 02/09/20 00:17 Dose: 100 ml Ondansetron HCl (Zofran) 4 mg IVPUSH ONETIME ONE Stop: 02/08/20 22:16 Last Admin: 02/08/20 22:24 Dose: 4 mg Oxycodone/Acetaminophen (Percocet 325-5 Mg) 2 tab PO ONETIME ONE Stop: 02/08/20 23:53 Last Admin: 02/09/20 00:43 Dose: 2 tab - Exam General: Alert, Oriented, Cooperative, No Acute Distress Lungs: Clear to Auscultation, Normal Respiratory Effort Cardiovascular: Regular Rate, Regular Rhythm GI/Abdominal Exam: Normal Bowel Sounds, Soft, Tender (LUQ) Extremities: Normal Inspection, Normal Range of Motion, Non-Tender, No Pedal Edema Neurological: No New Focal Deficit Psy/Mental Status: Alert, Normal Affect, Normal Mood Sepsis Event Note - Evaluation Sepsis Screening Result: No Definite Risk - Focused Exam Vital Signs: Vital Signs Temp Pulse Resp BP Pulse Ox Pulse Ox 02/10/20 07:00 99.4 F 96 20 143/84 H 95 02/10/20 03:30 97.0 F 90 18 130/80 93 L 02/10/20 01:41 94 L 02/09/20 23:46 98.5 F 85 20 130/69 94 L Date Exam was Performed: 02/10/20 Time Exam was Performed: 13:25 - Problem List & Annotations (1) Small bowel obstruction SNOMED Code(s): 646201596 Code(s): K56.609 - UNSP INTESTNL OBST, UNSP TO PARTIAL VERSUS COMPLETE OBST Status: Acute Current Visit: Yes (2) Abdominal pain SNOMED Code(s): 19843886 Code(s): R10.9 - UNSPECIFIED ABDOMINAL PAIN Status: Acute Current Visit: No (3) Diverticulitis large intestine SNOMED Code(s): 2843125 Code(s): K57.32 - DVTRCLI OF LG INT W/O PERFORATION OR ABSCESS W/O BLEEDING Status: Chronic Current Visit: Yes (4) Hx of colostomy SNOMED Code(s): 888053589 Code(s): MSE1016 - Status: Chronic Current Visit: Yes (5) COPD (chronic obstructive pulmonary disease) SNOMED Code(s): 58160604 Code(s): J44.9 - CHRONIC OBSTRUCTIVE PULMONARY DISEASE, UNSPECIFIED Status : Chronic Priority: Medium Current Visit: No Qualifiers: COPD type: unspecified COPD Qualified Code(s): J44.9 - Chronic obstructive pulmonary disease, unspecified (6) Parastomal hernia SNOMED Code(s): 850243371 Code(s): K43.5 - PARASTOMAL HERNIA WITHOUT OBSTRUCTION OR GANGRENE Status: Chronic Priority: High Current Visit: No Qualifiers: Obstruction and gangrene presence: without obstruction or gangrene Qualified Code(s): K43.5 - Parastomal hernia without obstruction or gangrene - Problem List Review Problem List Initiated/Reviewed/Updated: Yes - My Orders Last 24 Hours: My Active Orders 02/09/20 07:56 Intake and Output [RC] Q12H Oxygen Therapy [RC] PRN Up With Assistance [RC] ASDIRECTED VTE/DVT Education [RC] Q12H Resuscitation Status Routine 02/09/20 08:00 Dextrose 5%-0.45% NaCl [Dextrose 5%-1/2 NS] 1,000 ml IV Q8H Enoxaparin [Lovenox] 40 mg SUBCUT Q24H 02/09/20 13:15 Consult to Physician [CONS] Routine 02/09/20 13:16 Notify Provider Consults [RC] ASDIRECTED 02/09/20 16:22 Acetaminophen [Tylenol] 650 mg PO Q4H PRN 02/09/20 21:00 Docusate Sodium [Colace] 100 mg PO BID 02/11/20 05:11 BASIC METABOLIC PANEL,BMP [CHEM] AM CBC WITH AUTO DIFF [HEME] AM MAGNESIUM [CHEM] AM 02/12/20 05:11 BASIC METABOLIC PANEL,BMP [CHEM] AM CBC WITH AUTO DIFF [HEME] AM MAGNESIUM [CHEM] AM - Plan Plan:: This 59 year old female admitted with SBO 1. SBO - Extensive abdominal surgical history and frequent SBO - Conservative therapy for now - Passing flatus this morning, still no BM - Tolerating CL diet - IVFs - Analgesics and antiemetics PRN for pain and nausea - Consult Dr Nance, I appreciate his assistance with this patient - Encourage ambulation - Protonix 40 mg IV daily - Colace and she requested MOM VTE prophylaxis: Lovenox Dispo: 2-3 days
--- NOTE | 2020-02-10 08:19 | CONS ---
DATE OF CONSULTATION: 02/09/2020 DATE OF : 1960 PRIMARY CARE PHYSICIAN: Yaw Loza M.D. REASON FOR CONSULTATION: This is a consult from Karlie Moe NP and Dr. Faulkner for abdominal pain. HISTORY OF PRESENT ILLNESS: The patient is a 59-year-old lady, BMI of 18, had a very complicated abdominal surgery. Had bowel perforation 2 times and subsequently got a colostomy procedure done in June and postop complicated with sepsis, and now 3 months later, the patient has colostomy reversed on October 13, and since then, the patient has a lot of abdominal pain and has been in and out of the emergency room at least 3 times. Today, the patient presented with another episode of abdominal pain which is to her of most concern. She says she had bowel movement 2 days ago and was well formed. Denied bright red blood per rectum. Denied black tarry stool, but concerned about left upper quadrant abdominal pain. The patient also remarked, after she got the pain medication just a couple hours ago, she is passing gas. The patient describes the pain as sharp and is on a pain scale of 7 and it comes and goes, but pretty persistent. Denied nausea. ALLERGIES: Please refer to nursing for details. MEDICATION: Please refer to nursing for details. PAST MEDICAL HISTORY: Significant for no diabetes, CT, CVA, hypertension. PAST SURGICAL HISTORY: As alluded above. FAMILY HISTORY: Noncontributory. PHYSICAL EXAMINATION: GENERAL: Very pleasant lady, although not smiling, but cooperated and very polite and concerned about pain medication. HEENT: Normocephalic and atraumatic. Sclerae are anicteric. LUNGS: Clear to auscultation. HEART: Regular rate and rhythm. ABDOMEN: Soft, nondistended. No pulsating, tender midline abdominal structure. Not even subjective tenderness in all 4 quadrants. Active bowel sounds. LABORATORY DATA: Upon consultation, white count is 3.8. H and H of 11 and 35, platelets 159,000. BUN is 10 and creatinine is 0.8. Lactate is 0.9. Liver function tests within normal limit. CAT scan, status post intestinal surgery with borderline diameter loops of small bowel and with decompressed small bowel in another area. Differential includes possible low-grade small-bowel obstruction versus an enteritis or ileitis. IMPRESSION: Abdominal pain as patient was most concerned about it. With the patient's constant many episodes of possible ileus versus bowel obstruction, the patient's narcotics should be given very cautiously and gingerly. Keep the potassium about 4 to avoid chemical ileus. If nausea or throw up, we will need to insert NG tube for the time being. On examination, cannot even appreciate any pain. Probably, it will be a good idea to keep the patient n.p.o. at least for a day or two, and if pain resolves, maybe start p.o. Of note, the patient has been told at least by 3 of us that patient needs to follow up with her colorectal surgeon. The same situation has been echoed by 2 of my colleagues, and unfortunately, the patient, after the September surgery and June surgery, has not been back to follow up with her surgeon for almost 5 months. Pretty confident that, if I am the surgeon, I would like to know how the patient turning lathe tender. The patient agreed that maybe it is a good idea to eventually follow up with her surgeon sometime. For the time being, continue ice chip, and if throws up, insert NG tube. We will follow the patient with you. For the time being, there is no abdominal surgery justified or planned. As always, thank you for your kind referral. TAMMY / CHANTE /[id number]
[2020-02-10] MEDS: Enoxaparin 40 MG/0.4 ML Syringe SUBCUT SCH (08:26)
[2020-02-10] MEDS: Docusate Sodium 100 MG Cap PO SCH ×2 (08:26→20:44)
[2020-02-10] MEDS: Pantoprazole 40 MG in Sodium Chloride 0.9% 10 ML IV SCH (08:26)
[2020-02-10] MEDS ORDERED: Magnesium Hydroxide 400 MG/5 ML Susp 30 ML Cup PO ONE (09:11)
--- NOTE | 2020-02-10 09:31 | PCM.SURGPN ---
- General Info Date of Service: 02/10/20 - Review of Systems General: Reports: No Symptoms Gastrointestinal: Reports: No Symptoms (passing gas, no bm; still hurting at LUQ ) - Patient Data Vitals - Most Recent: Last Vital Signs Temp 99.4 F 02/10/20 07:00 Pulse 96 02/10/20 07:00 Resp 20 02/10/20 07:00 BP 143/84 H 02/10/20 07:00 Pulse Ox 94 L 02/10/20 07:56 Weight - Most Recent: 127 lb 6.835 oz I&O - Last 24 Hours: Intake & Output 02/09/20 02/10/20 02/10/20 22:59 06:59 14:59 Intake Total 1020 150 Output Total 2100 1700 Balance -1080 -1550 Lab Results Last 24 Hrs: Laboratory Results - last 24 hr 02/09/20 02/09/20 02/09/20 Range/Units 09:57 12:22 18:02 WBC (4.0-11.0) K/uL RBC (4.30-5.90) M/uL Hgb (12.0-16.0) g/dL Hct (36.0-46.0) % MCV (80.0-98.0) fL MCH (27.0-32.0) pg MCHC (31.0-37.0) g/dL RDW Std Deviation (28.0-62.0) fl RDW Coeff of Shaq (11.0-15.0) % Plt Count (150-400) K/uL MPV (7.40-12.00) fL Neut % (Auto) (48.0-80.0) % Lymph % (Auto) (16.0-40.0) % [place] % (Auto) (0.0-15.0) % Eos % (Auto) (0.0-7.0) % Baso % (Auto) (0.0-1.5) % Neut # (Auto) (1.4-5.7) K/uL Lymph # (Auto) (0.6-2.4) K/uL [place] # (Auto) (0.0-0.8) K/uL Eos # (Auto) (0.0-0.7) K/uL Baso # (Auto) (0.0-0.1) K/uL Nucleated RBC % /100WBC Nucleated RBCs # K/uL Sodium (136-145) mmol/L Potassium (3.5-5.1) mmol/L Chloride (98-107) mmol/L Carbon Dioxide (21.0-32.0) mmol/L BUN (7.0-18.0) mg/dL Creatinine (0.6-1.0) mg/dL Est Cr Clr Drug Dosing mL/min Estimated GFR (MDRD) ml/min Glucose (74-106) mg/dL POC Glucose 97 97 102 (60-110) mg/dL Calcium (8.5-10.1) mg/dL Magnesium (1.8-2.4) mg/dL 02/09/20 02/10/20 02/10/20 Range/Units 23:56 05:35 05:35 WBC 5.29 (4.0-11.0) K/uL RBC 4.28 L (4.30-5.90) M/uL Hgb 12.3 (12.0-16.0) g/dL Hct 38.3 (36.0-46.0) % MCV 89.5 (80.0-98.0) fL MCH 28.7 (27.0-32.0) pg MCHC 32.1 (31.0-37.0) g/dL RDW Std Deviation 47.0 (28.0-62.0) fl RDW Coeff of Shaq 14 (11.0-15.0) % Plt Count 188 (150-400) K/uL MPV 9.60 (7.40-12.00) fL Neut % (Auto) 54.8 (48.0-80.0) % Lymph % (Auto) 31.0 (16.0-40.0) % [place] % (Auto) 11.9 (0.0-15.0) % Eos % (Auto) 2.1 (0.0-7.0) % Baso % (Auto) 0.2 (0.0-1.5) % Neut # (Auto) 2.9 (1.4-5.7) K/uL Lymph # (Auto) 1.6 (0.6-2.4) K/uL [place] # (Auto) 0.6 (0.0-0.8) K/uL Eos # (Auto) 0.1 (0.0-0.7) K/uL Baso # (Auto) 0.0 (0.0-0.1) K/uL Nucleated RBC % 0.0 /100WBC Nucleated RBCs # 0 K/uL Sodium 142 (136-145) mmol/L Potassium 3.5 (3.5-5.1) mmol/L Chloride 106 (98-107) mmol/L Carbon Dioxide 29.2 (21.0-32.0) mmol/L BUN 5 L (7.0-18.0) mg/dL Creatinine 0.8 (0.6-1.0) mg/dL Est Cr Clr Drug Dosing 67.38 mL/min Estimated GFR (MDRD) > 60.0 ml/min Glucose 93 (74-106) mg/dL POC Glucose 102 (60-110) mg/dL Calcium 9.0 (8.5-10.1) mg/dL Magnesium 1.9 (1.8-2.4) mg/dL 02/10/20 Range/Units 06:07 WBC (4.0-11.0) K/uL RBC (4.30-5.90) M/uL Hgb (12.0-16.0) g/dL Hct (36.0-46.0) % MCV (80.0-98.0) fL MCH (27.0-32.0) pg MCHC (31.0-37.0) g/dL RDW Std Deviation (28.0-62.0) fl RDW Coeff of Shaq (11.0-15.0) % Plt Count (150-400) K/uL MPV (7.40-12.00) fL Neut % (Auto) (48.0-80.0) % Lymph % (Auto) (16.0-40.0) % [place] % (Auto) (0.0-15.0) % Eos % (Auto) (0.0-7.0) % Baso % (Auto) (0.0-1.5) % Neut # (Auto) (1.4-5.7) K/uL Lymph # (Auto) (0.6-2.4) K/uL [place] # (Auto) (0.0-0.8) K/uL Eos # (Auto) (0.0-0.7) K/uL Baso # (Auto) (0.0-0.1) K/uL Nucleated RBC % /100WBC Nucleated RBCs # K/uL Sodium (136-145) mmol/L Potassium (3.5-5.1) mmol/L Chloride (98-107) mmol/L Carbon Dioxide (21.0-32.0) mmol/L BUN (7.0-18.0) mg/dL Creatinine (0.6-1.0) mg/dL Est Cr Clr Drug Dosing mL/min Estimated GFR (MDRD) ml/min Glucose (74-106) mg/dL POC Glucose 88 (60-110) mg/dL Calcium (8.5-10.1) mg/dL Magnesium (1.8-2.4) mg/dL Med Orders - Current: Current Medications Acetaminophen (Tylenol) 650 mg PO Q4H PRN PRN Reason: Pain Last Admin: 02/09/20 16:55 Dose: 650 mg Albuterol/Ipratropium (Duoneb 3.0-0.5 Mg/3 Ml) 3 ml NEB Q6HRRT PRN PRN Reason: Wheezing Dextrose/Water (Dextrose 50% In Water) 25 ml IVPUSH ONETIME PRN PRN Reason: Hypoglycemia Docusate Sodium (Colace) 100 mg PO BID [facility] Last Admin: 02/10/20 08:26 Dose: 100 mg Enoxaparin Sodium (Lovenox) 40 mg SUBCUT Q24H [facility] Last Admin: 02/10/20 08:26 Dose: 40 mg Hydromorphone HCl (Dilaudid) 1 mg IVPUSH Q4H PRN PRN Reason: Pain (severe 7-10) Last Admin: 02/10/20 05:58 Dose: 1 mg Pantoprazole Sodium 40 mg/ (Sodium Chloride) 10 mls @ 300 mls/hr IV DAILY [facility] Last Admin: 02/10/20 08:26 Dose: 300 mls/hr Dextrose/Sodium Chloride (Dextrose 5%-1/2 Ns) 1,000 mls @ 75 mls/hr IV Q13H [facility] Last Admin: 02/10/20 09:23 Dose: 75 mls/hr Lorazepam (Ativan) 0.5 mg IVPUSH Q6H PRN PRN Reason: Anxiety Last Admin: 02/10/20 05:59 Dose: 0.5 mg Ondansetron HCl (Zofran) 4 mg IVPUSH Q4H PRN PRN Reason: Nausea/Vomitting Sodium Chloride (Saline Flush) 10 ml FLUSH ASDIRECTED PRN PRN Reason: Keep Vein Open Last Admin: 02/08/20 22:24 Dose: 10 ml Sodium Chloride (Saline Flush) 2.5 ml FLUSH ASDIRECTED PRN PRN Reason: Keep Vein Open Last Admin: 02/08/20 22:24 Dose: 2.5 ml Sodium Chloride (Normal Saline) 10 ml IV ASDIRECTED PRN PRN Reason: IV Use Discontinued Medications Fentanyl (Fentanyl) 50 mcg IVPUSH ONETIME ONE Stop: 02/08/20 22:16 Last Admin: 02/08/20 22:24 Dose: 50 mcg Lactated Ringer's (Ringers, Lactated) 1,000 mls @ 1,000 mls/hr IV .BOLUS ONE Stop: 02/08/20 23:14 Last Admin: 02/08/20 22:24 Dose: 1,000 mls/hr Lactated Ringer's (Ringers, Lactated) 1,000 mls @ 125 mls/hr IV ASDIRECTED [facility] Last Admin: 02/09/20 02:48 Dose: 125 mls/hr Dextrose/Sodium Chloride (Dextrose 5%-1/2 Ns) 1,000 mls @ 125 mls/hr IV Q8H [facility] Last Admin: 02/10/20 01:16 Dose: 125 mls/hr Iopamidol (Isovue-370 (76%)) 100 ml IVPUSH ONETIME STA Stop: 02/09/20 00:18 Last Admin: 02/09/20 00:17 Dose: 100 ml Magnesium Hydroxide (Milk Of Magnesia) 30 ml PO ONETIME ONE Stop: 02/10/20 09:12 Ondansetron HCl (Zofran) 4 mg IVPUSH ONETIME ONE Stop: 02/08/20 22:16 Last Admin: 02/08/20 22:24 Dose: 4 mg Oxycodone/Acetaminophen (Percocet 325-5 Mg) 2 tab PO ONETIME ONE Stop: 02/08/20 23:53 Last Admin: 02/09/20 00:43 Dose: 2 tab - Exam GI/Abdominal Exam: Soft, No Distention Sepsis Event Note - Evaluation Sepsis Screening Result: No Definite Risk - Focused Exam Vital Signs: Vital Signs Temp Pulse Resp BP Pulse Ox Pulse Ox 02/10/20 07:56 94 L 02/10/20 07:00 99.4 F 96 20 143/84 H 95 02/10/20 03:30 97.0 F 90 18 130/80 93 L 02/10/20 01:41 94 L 02/09/20 23:46 98.5 F 85 20 130/69 94 L Date Exam was Performed: 02/10/20 Time Exam was Performed: 09:29 - Problem List Review Problem List Initiated/Reviewed/Updated: Yes - My Orders Last 24 Hours: Active Orders 24 hr Category Date Time Status Notify Provider Consults [RC] ASDIRECTED Care 02/09/20 13:16 Active RT Aerosol Therapy [RC] ASDIRECTED Care 02/10/20 01:41 Active Consult to Physician [CONS] Routine Cons 02/09/20 13:15 Active Clear Liquid Diet [DIET] Diet 02/10/20 Breakfast Active BASIC METABOLIC PANEL,BMP [CHEM] AM Lab 02/11/20 05:11 Ordered BASIC METABOLIC PANEL,BMP [CHEM] AM Lab 02/12/20 05:11 Ordered CBC WITH AUTO DIFF [HEME] AM Lab 02/11/20 05:11 Ordered CBC WITH AUTO DIFF [HEME] AM Lab 02/12/20 05:11 Ordered MAGNESIUM [CHEM] AM Lab 02/11/20 05:11 Ordered MAGNESIUM [CHEM] AM Lab 02/12/20 05:11 Ordered Acetaminophen [Tylenol] Med 02/09/20 16:22 Active 650 mg PO Q4H PRN Albuterol/Ipratropium [DuoNeb 3.0-0.5 MG/3 ML] Med 02/10/20 01:41 Active 3 ml NEB Q6HRRT PRN Dextrose 5%-0.45% NaCl [Dextrose 5%-1/2 NS] 1,000 ml Med 02/10/20 09:15 Active IV Q13H Docusate Sodium [Colace] Med 02/09/20 21:00 Active 100 mg PO BID Pantoprazole [ProTONIX IV] 40 mg Med 02/09/20 09:00 Active Sodium Chloride 0.9% [Normal Saline] 10 ml IV DAILY Medication Orders Acetaminophen (Tylenol) 650 mg PO Q4H PRN PRN Reason: Pain Last Admin: 02/09/20 16:55 Dose: 650 mg Albuterol/Ipratropium (Duoneb 3.0-0.5 Mg/3 Ml) 3 ml NEB Q6HRRT PRN PRN Reason: Wheezing Dextrose/Water (Dextrose 50% In Water) 25 ml IVPUSH ONETIME PRN PRN Reason: Hypoglycemia Docusate Sodium (Colace) 100 mg PO BID [facility] Last Admin: 02/10/20 08:26 Dose: 100 mg Admin: 02/09/20 21:11 Dose: 100 mg Enoxaparin Sodium (Lovenox) 40 mg SUBCUT Q24H [facility] Last Admin: 02/10/20 08:26 Dose: 40 mg Admin: 02/09/20 08:47 Dose: 40 mg Hydromorphone HCl (Dilaudid) 1 mg IVPUSH Q4H PRN PRN Reason: Pain (severe 7-10) Last Admin: 02/10/20 05:58 Dose: 1 mg Admin: 02/10/20 01:15 Dose: 1 mg Admin: 02/09/20 21:11 Dose: 1 mg Admin: 02/09/20 16:58 Dose: 1 mg Admin: 02/09/20 12:39 Dose: 1 mg Admin: 02/09/20 07:04 Dose: 1 mg Admin: 02/09/20 02:52 Dose: 1 mg Pantoprazole Sodium 40 mg/ (Sodium Chloride) 10 mls @ 300 mls/hr IV DAILY [facility] Last Admin: 02/10/20 08:26 Dose: 300 mls/hr Infusion: 02/09/20 10:16 Dose: 300 mls/hr Admin: 02/09/20 10:14 Dose: 300 mls/hr Dextrose/Sodium Chloride (Dextrose 5%-1/2 Ns) 1,000 mls @ 75 mls/hr IV Q13H [facility] Last Admin: 02/10/20 09:23 Dose: 75 mls/hr Lorazepam (Ativan) 0.5 mg IVPUSH Q6H PRN PRN Reason: Anxiety Last Admin: 02/10/20 05:59 Dose: 0.5 mg Admin: 02/09/20 23:48 Dose: 0.5 mg Admin: 02/09/20 17:03 Dose: 0.5 mg Admin: 02/09/20 10:27 Dose: 0.5 mg Admin: 02/09/20 02:54 Dose: 0.5 mg Ondansetron HCl (Zofran) 4 mg IVPUSH Q4H PRN PRN Reason: Nausea/Vomitting Sodium Chloride (Saline Flush) 10 ml FLUSH ASDIRECTED PRN PRN Reason: Keep Vein Open Last Admin: 02/08/20 22:24 Dose: 10 ml Sodium Chloride (Saline Flush) 2.5 ml FLUSH ASDIRECTED PRN PRN Reason: Keep Vein Open Last Admin: 02/08/20 22:24 Dose: 2.5 ml Sodium Chloride (Normal Saline) 10 ml IV ASDIRECTED PRN PRN Reason: IV Use - Assessment Assessment (Free Text/Narrative):: not much change, more open up during exam; wbc 5 - Plan Plan (Free Text/Narrative):: may try clear liquid later today if pt feels up to; passing gas, no BM yet; wbc fine
[2020-02-10] MEDS: Fluticasone Propionate Nasal Spray 16 GM Bottle NASBOTH SCH (13:35)
[2020-02-10] MEDS: Albuterol/Ipratropium 3.0-0.5 MG/3 ML Neb Soln NEB SCH ×2 (17:29→23:20)
[2020-02-10] MEDS: busPIRone 5 MG Tab PO SCH (20:44)
[2020-02-10] MEDS ORDERED: Budesonide 0.5 MG/2 ML Neb Susp INH SCH (21:00)
[2020-02-11] MEDS: LORazepam 2 MG/ML SDV IVPUSH PRN (02:30)
[2020-02-11] MEDS: HYDROmorphone 1 MG/ML Syringe IVPUSH PRN (03:41)
[2020-02-11] MEDS: Albuterol/Ipratropium 3.0-0.5 MG/3 ML Neb Soln NEB SCH ×2 (06:09→11:00)
[2020-02-11 06:19] LABS: BLOOD UREA NITROGEN,BUN 4 mg/dL (7.0-18.0); CARBON DIOXIDE,CO2 25.3 mmol/L (21.0-32.0); CHLORIDE,CL 108 mmol/L (98-107); GLUCOSE RANDOM 100 mg/dL (74-106); POTASSIUM,K 3.4 mmol/L (3.5-5.1); SODIUM,NA 141 mmol/L (136-145)
[2020-02-11] MEDS: Acetaminophen 325 MG Tab PO PRN (08:45)
[2020-02-11] MEDS: oxyCODONE 5 MG Tab PO PRN ×2 (09:12→15:30)
[2020-02-11] MEDS: Enoxaparin 40 MG/0.4 ML Syringe SUBCUT SCH (09:12)
[2020-02-11] MEDS: Docusate Sodium 100 MG Cap PO SCH (09:13)
[2020-02-11] MEDS: busPIRone 5 MG Tab PO SCH (09:13)
[2020-02-11] MEDS: Pantoprazole 40 MG in Sodium Chloride 0.9% 10 ML IV SCH (09:14)
[2020-02-11] MEDS: Fluticasone Propionate Nasal Spray 16 GM Bottle NASBOTH SCH (11:09)
--- NOTE | 2020-02-11 11:13 | PCM.SURGPN ---
- General Info Date of Service: 02/11/20 - Review of Systems General: Reports: No Symptoms (had BM, in high mood; less abd pain) - Patient Data Vitals - Most Recent: Last Vital Signs Temp 98.8 F 02/11/20 08:50 Pulse 71 02/11/20 08:50 Resp 18 02/11/20 08:50 BP 144/81 H 02/11/20 08:50 Pulse Ox 97 02/11/20 09:00 Weight - Most Recent: 127 lb 6.835 oz I&O - Last 24 Hours: Intake & Output 02/10/20 02/11/20 02/11/20 22:59 06:59 14:59 Intake Total 2044 2290 Output Total 1800 900 Balance 244 1390 Lab Results Last 24 Hrs: Laboratory Results - last 24 hr 02/10/20 02/10/20 02/11/20 Range/Units 14:00 18:18 00:15 WBC (4.0-11.0) K/uL RBC (4.30-5.90) M/uL Hgb (12.0-16.0) g/dL Hct (36.0-46.0) % MCV (80.0-98.0) fL MCH (27.0-32.0) pg MCHC (31.0-37.0) g/dL RDW Std Deviation (28.0-62.0) fl RDW Coeff of Shaq (11.0-15.0) % Plt Count (150-400) K/uL MPV (7.40-12.00) fL Neut % (Auto) (48.0-80.0) % Lymph % (Auto) (16.0-40.0) % [place] % (Auto) (0.0-15.0) % Eos % (Auto) (0.0-7.0) % Baso % (Auto) (0.0-1.5) % Neut # (Auto) (1.4-5.7) K/uL Lymph # (Auto) (0.6-2.4) K/uL [place] # (Auto) (0.0-0.8) K/uL Eos # (Auto) (0.0-0.7) K/uL Baso # (Auto) (0.0-0.1) K/uL Nucleated RBC % /100WBC Nucleated RBCs # K/uL Sodium (136-145) mmol/L Potassium (3.5-5.1) mmol/L Chloride (98-107) mmol/L Carbon Dioxide (21.0-32.0) mmol/L BUN (7.0-18.0) mg/dL Creatinine (0.6-1.0) mg/dL Est Cr Clr Drug Dosing mL/min Estimated GFR (MDRD) ml/min Glucose (74-106) mg/dL POC Glucose 106 95 107 (60-110) mg/dL Calcium (8.5-10.1) mg/dL Magnesium (1.8-2.4) mg/dL 02/11/20 02/11/20 02/11/20 Range/Units 05:25 05:25 06:01 WBC 3.58 L (4.0-11.0) K/uL RBC 3.88 L (4.30-5.90) M/uL Hgb 11.1 L (12.0-16.0) g/dL Hct 34.3 L (36.0-46.0) % MCV 88.4 (80.0-98.0) fL MCH 28.6 (27.0-32.0) pg MCHC 32.4 (31.0-37.0) g/dL RDW Std Deviation 46.1 (28.0-62.0) fl RDW Coeff of Shaq 14 (11.0-15.0) % Plt Count 167 (150-400) K/uL MPV 9.90 (7.40-12.00) fL Neut % (Auto) 46.8 L (48.0-80.0) % Lymph % (Auto) 35.8 (16.0-40.0) % [place] % (Auto) 15.1 H (0.0-15.0) % Eos % (Auto) 1.7 (0.0-7.0) % Baso % (Auto) 0.6 (0.0-1.5) % Neut # (Auto) 1.7 (1.4-5.7) K/uL Lymph # (Auto) 1.3 (0.6-2.4) K/uL [place] # (Auto) 0.5 (0.0-0.8) K/uL Eos # (Auto) 0.1 (0.0-0.7) K/uL Baso # (Auto) 0.0 (0.0-0.1) K/uL Nucleated RBC % 0.0 /100WBC Nucleated RBCs # 0 K/uL Sodium 141 (136-145) mmol/L Potassium 3.4 L (3.5-5.1) mmol/L Chloride 108 H (98-107) mmol/L Carbon Dioxide 25.3 (21.0-32.0) mmol/L BUN 4 L (7.0-18.0) mg/dL Creatinine 0.6 (0.6-1.0) mg/dL Est Cr Clr Drug Dosing 89.84 mL/min Estimated GFR (MDRD) > 60.0 ml/min Glucose 100 (74-106) mg/dL POC Glucose 84 (60-110) mg/dL Calcium 8.4 L (8.5-10.1) mg/dL Magnesium 2.0 (1.8-2.4) mg/dL Med Orders - Current: Current Medications Acetaminophen (Tylenol) 650 mg PO Q4H PRN PRN Reason: Pain Last Admin: 02/11/20 08:45 Dose: 650 mg Albuterol/Ipratropium (Duoneb 3.0-0.5 Mg/3 Ml) 3 ml NEB Q6HRRT [facility] Last Admin: 02/11/20 11:00 Dose: 3 ml Budesonide (Pulmicort) 0.5 mg INH BEDTIME [facility] Last Admin: 02/10/20 21:21 Dose: 0.5 mg Buspirone HCl (Buspar) 15 mg PO BID [facility] Last Admin: 02/11/20 09:13 Dose: 15 mg Dextrose/Water (Dextrose 50% In Water) 25 ml IVPUSH ONETIME PRN PRN Reason: Hypoglycemia Docusate Sodium (Colace) 100 mg PO BID [facility] Last Admin: 02/11/20 09:13 Dose: 100 mg Enoxaparin Sodium (Lovenox) 40 mg SUBCUT Q24H [facility] Last Admin: 02/11/20 09:12 Dose: 40 mg Fluticasone Propionate (Flonase) 0 gm NASBOTH DAILY [facility] Last Admin: 02/11/20 11:09 Dose: 2 spray Pantoprazole Sodium 40 mg/ (Sodium Chloride) 10 mls @ 300 mls/hr IV DAILY CLARA Last Admin: 02/11/20 09:14 Dose: 300 mls/hr Dextrose/Sodium Chloride (Dextrose 5%-1/2 Ns) 1,000 mls @ 75 mls/hr IV Q13H CLARA Last Admin: 02/10/20 21:24 Dose: 75 mls/hr Lorazepam (Ativan) 0.5 mg IVPUSH Q6H PRN PRN Reason: Anxiety Last Admin: 02/11/20 02:30 Dose: 0.5 mg Ondansetron HCl (Zofran) 4 mg IVPUSH Q4H PRN PRN Reason: Nausea/Vomitting Oxycodone HCl (Oxycodone) 10 mg PO Q6H PRN PRN Reason: Pain Last Admin: 02/11/20 09:12 Dose: 10 mg Sodium Chloride (Saline Flush) 10 ml FLUSH ASDIRECTED PRN PRN Reason: Keep Vein Open Last Admin: 02/08/20 22:24 Dose: 10 ml Sodium Chloride (Saline Flush) 2.5 ml FLUSH ASDIRECTED PRN PRN Reason: Keep Vein Open Last Admin: 02/08/20 22:24 Dose: 2.5 ml Sodium Chloride (Normal Saline) 10 ml IV ASDIRECTED PRN PRN Reason: IV Use Discontinued Medications Albuterol/Ipratropium (Duoneb 3.0-0.5 Mg/3 Ml) 3 ml NEB Q6HRRT PRN PRN Reason: Wheezing Last Admin: 02/10/20 12:52 Dose: 3 ml Fentanyl (Fentanyl) 50 mcg IVPUSH ONETIME ONE Stop: 02/08/20 22:16 Last Admin: 02/08/20 22:24 Dose: 50 mcg Hydromorphone HCl (Dilaudid) 1 mg IVPUSH Q4H PRN PRN Reason: Pain (severe 7-10) Last Admin: 02/11/20 03:41 Dose: 1 mg Lactated Ringer's (Ringers, Lactated) 1,000 mls @ 1,000 mls/hr IV .BOLUS ONE Stop: 02/08/20 23:14 Last Admin: 02/08/20 22:24 Dose: 1,000 mls/hr Lactated Ringer's (Ringers, Lactated) 1,000 mls @ 125 mls/hr IV ASDIRECTED [facility], [facility] Last Admin: 02/09/20 02:48 Dose: 125 mls/hr Dextrose/Sodium Chloride (Dextrose 5%-1/2 Ns) 1,000 mls @ 125 mls/hr IV Q8H [facility] Last Admin: 02/10/20 12:35 Dose: Not Given Iopamidol (Isovue-370 (76%)) 100 ml IVPUSH ONETIME STA Stop: 02/09/20 00:18 Last Admin: 02/09/20 00:17 Dose: 100 ml Magnesium Hydroxide (Milk Of Magnesia) 30 ml PO ONETIME ONE Stop: 02/10/20 09:12 Last Admin: 02/10/20 09:56 Dose: 30 ml Ondansetron HCl (Zofran) 4 mg IVPUSH ONETIME ONE Stop: 02/08/20 22:16 Last Admin: 02/08/20 22:24 Dose: 4 mg Oxycodone/Acetaminophen (Percocet 325-5 Mg) 2 tab PO ONETIME ONE Stop: 02/08/20 23:53 Last Admin: 02/09/20 00:43 Dose: 2 tab - Exam GI/Abdominal Exam: Soft, No Distention Sepsis Event Note - Evaluation Sepsis Screening Result: No Definite Risk - Focused Exam Vital Signs: Vital Signs Temp Pulse Resp BP Pulse Ox Pulse Ox 02/11/20 09:00 97 02/11/20 08:50 98.8 F 71 18 144/81 H 97 02/11/20 04:00 98.8 F 80 16 117/70 95 02/11/20 00:00 99.6 F 91 16 125/72 98 Date Exam was Performed: 02/11/20 Time Exam was Performed: 11:11 - Problem List Review Problem List Initiated/Reviewed/Updated: Yes - My Orders Last 24 Hours: Active Orders 24 hr Category Date Time Status RT Aerosol Therapy [RC] ASDIRECTED Care 02/10/20 12:54 Active Ready for Discharge [RC] PER UNIT ROUTINE Care 02/11/20 10:55 Active Soft Diet [DIET] Diet 02/11/20 Breakfast Active BASIC METABOLIC PANEL,BMP [CHEM] AM Lab 02/12/20 05:11 Ordered CBC WITH AUTO DIFF [HEME] AM Lab 02/12/20 05:11 Ordered MAGNESIUM [CHEM] AM Lab 02/12/20 05:11 Ordered Albuterol/Ipratropium [DuoNeb 3.0-0.5 MG/3 ML] Med 02/10/20 18:00 Active 3 ml NEB Q6HRRT Budesonide [Pulmicort] Med 02/10/20 21:00 Active 0.5 mg INH BEDTIME Fluticasone Propionate [Flonase] Med 02/10/20 12:45 Active 0 gm NASBOTH DAILY busPIRone [Buspar] Med 02/10/20 21:00 Active 15 mg PO BID oxyCODONE Med 02/11/20 08:33 Active 10 mg PO Q6H PRN Medication Orders Acetaminophen (Tylenol) 650 mg PO Q4H PRN PRN Reason: Pain Last Admin: 02/11/20 08:45 Dose: 650 mg Admin: 02/09/20 16:55 Dose: 650 mg Albuterol/Ipratropium (Duoneb 3.0-0.5 Mg/3 Ml) 3 ml NEB Q6HRRT [facility] Last Admin: 02/11/20 11:00 Dose: 3 ml Admin: 02/11/20 06:09 Dose: 3 ml Admin: 02/10/20 23:20 Dose: 3 ml Admin: 02/10/20 17:29 Dose: 3 ml Budesonide (Pulmicort) 0.5 mg INH BEDTIME [facility] Last Admin: 02/10/20 21:21 Dose: 0.5 mg Buspirone HCl (Buspar) 15 mg PO BID [facility] Last Admin: 02/11/20 09:13 Dose: 15 mg Admin: 02/10/20 20:44 Dose: 15 mg Dextrose/Water (Dextrose 50% In Water) 25 ml IVPUSH ONETIME PRN PRN Reason: Hypoglycemia Docusate Sodium (Colace) 100 mg PO BID [facility] Last Admin: 02/11/20 09:13 Dose: 100 mg Admin: 02/10/20 20:44 Dose: 100 mg Admin: 02/10/20 08:26 Dose: 100 mg Admin: 02/09/20 21:11 Dose: 100 mg Enoxaparin Sodium (Lovenox) 40 mg SUBCUT Q24H [facility] Last Admin: 02/11/20 09:12 Dose: 40 mg Admin: 02/10/20 08:26 Dose: 40 mg Admin: 02/09/20 08:47 Dose: 40 mg Fluticasone Propionate (Flonase) 0 gm NASBOTH DAILY [facility] Last Admin: 02/11/20 11:09 Dose: 2 spray Admin: 02/10/20 13:35 Dose: 2 spray Pantoprazole Sodium 40 mg/ (Sodium Chloride) 10 mls @ 300 mls/hr IV DAILY CLARA Last Admin: 02/11/20 09:14 Dose: 300 mls/hr Infusion: 02/10/20 08:28 Dose: 300 mls/hr Admin: 02/10/20 08:26 Dose: 300 mls/hr Infusion: 02/09/20 10:16 Dose: 300 mls/hr Admin: 02/09/20 10:14 Dose: 300 mls/hr Dextrose/Sodium Chloride (Dextrose 5%-1/2 Ns) 1,000 mls @ 75 mls/hr IV Q13H [facility]ARA Last Admin: 02/10/20 21:24 Dose: 75 mls/hr Infusion: 02/10/20 21:24 Dose: 75 mls/hr Admin: 02/10/20 09:23 Dose: 75 mls/hr Lorazepam (Ativan) 0.5 mg IVPUSH Q6H PRN PRN Reason: Anxiety Last Admin: 02/11/20 02:30 Dose: 0.5 mg Admin: 02/10/20 19:01 Dose: 0.5 mg Admin: 02/10/20 12:44 Dose: 0.5 mg Admin: 02/10/20 05:59 Dose: 0.5 mg Admin: 02/09/20 23:48 Dose: 0.5 mg Admin: 02/09/20 17:03 Dose: 0.5 mg Admin: 02/09/20 10:27 Dose: 0.5 mg Admin: 02/09/20 02:54 Dose: 0.5 mg Ondansetron HCl (Zofran) 4 mg IVPUSH Q4H PRN PRN Reason: Nausea/Vomitting Oxycodone HCl (Oxycodone) 10 mg PO Q6H PRN PRN Reason: Pain Last Admin: 02/11/20 09:12 Dose: 10 mg Sodium Chloride (Saline Flush) 10 ml FLUSH ASDIRECTED PRN PRN Reason: Keep Vein Open Last Admin: 02/08/20 22:24 Dose: 10 ml Sodium Chloride (Saline Flush) 2.5 ml FLUSH ASDIRECTED PRN PRN Reason: Keep Vein Open Last Admin: 02/08/20 22:24 Dose: 2.5 ml Sodium Chloride (Normal Saline) 10 ml IV ASDIRECTED PRN PRN Reason: IV Use - Assessment Assessment (Free Text/Narrative):: advance diet to full liquid, ok to go home on full liquid; avoid narcotics or use less narcotic if possible; need to fu w her surgeon; hoa moon nv prn - Plan Plan (Free Text/Narrative):: advance diet to full liquid, ok to go home on full liquid; avoid narcotics or use less narcotic if possible; need to fu w her surgeon; hoa moon nv prn
--- NOTE | 2020-02-11 11:56 | PCM.DCSUM1 ---
Discharge Summary - Hospital Course Brief History: This 59 year old female with pmh of parastomal hernia, perforated sigmoid diverticulitis requiring colostomy (2018) status post revision (September 2019), multiple small bowel obstructions, hyperlipidemia, anxiety, depression, COPD presented to the ED with abdominal pain and N/V for the last day. She reports she started having LUQ pain with no BM or flatus x 2 days. She knows she is high risk for SBO as she has had many. She denies fevers or chills. No chest pain or SOB. No dysuria or focal neurological deficits. She reports she has been doing well for the last couple months. She has not follow with Dr Jones after revision in September. In the ED, no leukocytosis noted. BMP WNL as well as lipase and LFTs/ CT of her abdomen/pelvis was obtained this revealed SBO, no perforation or abscess. She was treated with pain medication and nausea meds in the ED. Admitted for observation for SBO. Diagnosis: Stroke: No - Discharge Data Discharge Date: 02/11/20 Discharge Disposition: Home, Self-Care 01 Condition: Good - Referral to Home Health Primary Care Physician: Yaw Loza MD - Discharge Diagnosis/Problem(s) (1) Small bowel obstruction SNOMED Code(s): 046025122 ICD Code: K56.609 - UNSP INTESTNL OBST, UNSP TO PARTIAL VERSUS COMPLETE OBST Status: Acute Current Visit: Yes (2) Abdominal pain SNOMED Code(s): 95911798 ICD Code: R10.9 - UNSPECIFIED ABDOMINAL PAIN Status: Acute Current Visit : No (3) Diverticulitis large intestine SNOMED Code(s): 4284121 ICD Code: K57.32 - DVTRCLI OF LG INT W/O PERFORATION OR ABSCESS W/O BLEEDING Status: Chronic Current Visit: Yes (4) Hx of colostomy SNOMED Code(s): 912078914 ICD Code: [id number] - Status: Chronic Current Visit: Yes (5) COPD (chronic obstructive pulmonary disease) SNOMED Code(s): 98440269 ICD Code: J44.9 - CHRONIC OBSTRUCTIVE PULMONARY DISEASE, UNSPECIFIED Status : Chronic Priority: Medium Current Visit: No Qualifiers: COPD type: unspecified COPD Qualified Code(s): J44.9 - Chronic obstructive pulmonary disease, unspecified (6) Parastomal hernia SNOMED Code(s): 080295499 ICD Code: K43.5 - PARASTOMAL HERNIA WITHOUT OBSTRUCTION OR GANGRENE Status : Chronic Priority: High Current Visit: No Qualifiers: Obstruction and gangrene presence: without obstruction or gangrene Qualified Code(s): K43.5 - Parastomal hernia without obstruction or gangrene - Patient Summary/Data Consults: Consultations 02/09/20 13:15 Consult to Physician [CONS] Routine Hospital Course: Admitting Diagnoses: SBO Discharge Diagnoses: SBO-resolved Other PMH: Hx perforate diverticulitis Hx colostomy with reversal Hx frequent SBO Lindsay was admitted and treated with conservative management for SBO with bowel rest, IVFs, pain medications, and antiemetics. She started passing gas on day 1 of admission and had BM on day 3. Diet was advanced to soft and she tolerated this well. She was advised to continued stool softeners and follow up with her GI specialist in [place]. She is to follow up with PCP in 1 week. She is to return to ED or clinic if concerns should arise. - Patient Instructions Diet: GI Soft/Low Residue/Low Fiber Activity: No Strenuous Activities, Rest and Relax Today Driving: Do Not Drive Showering/Bathing: May Shower Notify Provider of: Fever, Increased Pain, Swelling and Redness, Drainage, Nausea and/or Vomiting Other/Special Instructions: Arrange follow up with Dr Jones or Dr Ubrina in the next month - Discharge Plan *PRESCRIPTION DRUG MONITORING PROGRAM REVIEWED*: Not Applicable *COPY OF PRESCRIPTION DRUG MONITORING REPORT IN PATIENT CHELSIE: Not Applicable Home Medications: Home Meds ALPRAZolam [Xanax] 2 mg PO TID PRN 05/29/18 [History] Albuterol/Ipratropium [Combivent Respimat] 1 puff IH QID PRN 05/29/18 [History] Budesonide [Pulmicort] 1 dose INH BEDTIME 11/04/18 [History] Fluticasone Propionate [Flonase] 2 puff NASBOTH DAILY 11/04/18 [History] busPIRone [Buspar] 15 mg PO BID 11/04/18 [History] Ondansetron [Zofran ODT] 4 mg PO Q6H PRN 08/04/19 [History] Rosuvastatin [Crestor] 5 mg PO BEDTIME 08/04/19 [History] Budesonide/Formoterol Fumarate [Symbicort 160-4.5 Mcg Inhaler] 6 gm IH BID 30 Days #1 hfa.aer.ad 08/06/19 [Rx] Docusate Sodium [Colace] 100 mg PO BID 09/18/19 [History] Ipratropium/Albuterol Sulfate [Iprat-Albut 0.5-3(2.5) MG/3 ML] 3 ml NEB TID PRN 02/09/20 [History] Oxygen Therapy Mode: Room Air Referrals: Yaw Loza MD [Primary Care Provider] - 02/21/20 9:00 am - Discharge Summary/Plan Comment DC Time >30 min.: No - Patient Data Vitals - Most Recent: Last Vital Signs Temp 98.8 F 02/11/20 08:50 Pulse 71 02/11/20 08:50 Resp 18 02/11/20 08:50 BP 144/81 H 02/11/20 08:50 Pulse Ox 97 02/11/20 09:00 Weight - Most Recent: 57.8 kg I&O - Last 24 hours: Intake & Output 02/10/20 02/11/20 02/11/20 22:59 06:59 14:59 Intake Total 2044 2290 Output Total 1800 900 Balance 244 1390 Lab Results - Last 24 hrs: Laboratory Results - last 24 hr 02/10/20 02/10/20 02/11/20 Range/Units 14:00 18:18 00:15 WBC (4.0-11.0) K/uL RBC (4.30-5.90) M/uL Hgb (12.0-16.0) g/dL Hct (36.0-46.0) % MCV (80.0-98.0) fL MCH (27.0-32.0) pg MCHC (31.0-37.0) g/dL RDW Std Deviation (28.0-62.0) fl RDW Coeff of Shaq (11.0-15.0) % Plt Count (150-400) K/uL MPV (7.40-12.00) fL Neut % (Auto) (48.0-80.0) % Lymph % (Auto) (16.0-40.0) % [place] % (Auto) (0.0-15.0) % Eos % (Auto) (0.0-7.0) % Baso % (Auto) (0.0-1.5) % Neut # (Auto) (1.4-5.7) K/uL Lymph # (Auto) (0.6-2.4) K/uL [place] # (Auto) (0.0-0.8) K/uL Eos # (Auto) (0.0-0.7) K/uL Baso # (Auto) (0.0-0.1) K/uL Nucleated RBC % /100WBC Nucleated RBCs # K/uL Sodium (136-145) mmol/L Potassium (3.5-5.1) mmol/L Chloride (98-107) mmol/L Carbon Dioxide (21.0-32.0) mmol/L BUN (7.0-18.0) mg/dL Creatinine (0.6-1.0) mg/dL Est Cr Clr Drug Dosing mL/min Estimated GFR (MDRD) ml/min Glucose (74-106) mg/dL POC Glucose 106 95 107 (60-110) mg/dL Calcium (8.5-10.1) mg/dL Magnesium (1.8-2.4) mg/dL 02/11/20 02/11/20 02/11/20 Range/Units 05:25 05:25 06:01 WBC 3.58 L (4.0-11.0) K/uL RBC 3.88 L (4.30-5.90) M/uL Hgb 11.1 L (12.0-16.0) g/dL Hct 34.3 L (36.0-46.0) % MCV 88.4 (80.0-98.0) fL MCH 28.6 (27.0-32.0) pg MCHC 32.4 (31.0-37.0) g/dL RDW Std Deviation 46.1 (28.0-62.0) fl RDW Coeff of Shaq 14 (11.0-15.0) % Plt Count 167 (150-400) K/uL MPV 9.90 (7.40-12.00) fL Neut % (Auto) 46.8 L (48.0-80.0) % Lymph % (Auto) 35.8 (16.0-40.0) % [place] % (Auto) 15.1 H (0.0-15.0) % Eos % (Auto) 1.7 (0.0-7.0) % Baso % (Auto) 0.6 (0.0-1.5) % Neut # (Auto) 1.7 (1.4-5.7) K/uL Lymph # (Auto) 1.3 (0.6-2.4) K/uL [place] # (Auto) 0.5 (0.0-0.8) K/uL Eos # (Auto) 0.1 (0.0-0.7) K/uL Baso # (Auto) 0.0 (0.0-0.1) K/uL Nucleated RBC % 0.0 /100WBC Nucleated RBCs # 0 K/uL Sodium 141 (136-145) mmol/L Potassium 3.4 L (3.5-5.1) mmol/L Chloride 108 H (98-107) mmol/L Carbon Dioxide 25.3 (21.0-32.0) mmol/L BUN 4 L (7.0-18.0) mg/dL Creatinine 0.6 (0.6-1.0) mg/dL Est Cr Clr Drug Dosing 89.84 mL/min Estimated GFR (MDRD) > 60.0 ml/min Glucose 100 (74-106) mg/dL POC Glucose 84 (60-110) mg/dL Calcium 8.4 L (8.5-10.1) mg/dL Magnesium 2.0 (1.8-2.4) mg/dL 02/11/20 Range/Units 11:43 WBC (4.0-11.0) K/uL RBC (4.30-5.90) M/uL Hgb (12.0-16.0) g/dL Hct (36.0-46.0) % MCV (80.0-98.0) fL MCH (27.0-32.0) pg MCHC (31.0-37.0) g/dL RDW Std Deviation (28.0-62.0) fl RDW Coeff of Shaq (11.0-15.0) % Plt Count (150-400) K/uL MPV (7.40-12.00) fL Neut % (Auto) (48.0-80.0) % Lymph % (Auto) (16.0-40.0) % [place] % (Auto) (0.0-15.0) % Eos % (Auto) (0.0-7.0) % Baso % (Auto) (0.0-1.5) % Neut # (Auto) (1.4-5.7) K/uL Lymph # (Auto) (0.6-2.4) K/uL [place] # (Auto) (0.0-0.8) K/uL Eos # (Auto) (0.0-0.7) K/uL Baso # (Auto) (0.0-0.1) K/uL Nucleated RBC % /100WBC Nucleated RBCs # K/uL Sodium (136-145) mmol/L Potassium (3.5-5.1) mmol/L Chloride (98-107) mmol/L Carbon Dioxide (21.0-32.0) mmol/L BUN (7.0-18.0) mg/dL Creatinine (0.6-1.0) mg/dL Est Cr Clr Drug Dosing mL/min Estimated GFR (MDRD) ml/min Glucose (74-106) mg/dL POC Glucose 121 H (60-110) mg/dL Calcium (8.5-10.1) mg/dL Magnesium (1.8-2.4) mg/dL Med Orders - Current: Current Medications Acetaminophen (Tylenol) 650 mg PO Q4H PRN PRN Reason: Pain Last Admin: 02/11/20 08:45 Dose: 650 mg Albuterol/Ipratropium (Duoneb 3.0-0.5 Mg/3 Ml) 3 ml [facility]B Q6HRRT [facility] Last Admin: 02/11/20 11:00 Dose: 3 ml Budesonide (Pulmicort) 0.5 mg INH BEDTIME [facility]ARA Last Admin: 02/10/20 21:21 Dose: 0.5 mg Buspirone HCl (Buspar) 15 mg PO BID [facility] Last Admin: 02/11/20 09:13 Dose: 15 mg Dextrose/Water (Dextrose 50% In Water) 25 ml IVPUSH ONETIME PRN PRN Reason: Hypoglycemia Docusate Sodium (Colace) 100 mg PO BID [facility] Last Admin: 02/11/20 09:13 Dose: 100 mg Enoxaparin Sodium (Lovenox) 40 mg SUBCUT Q24H [facility] Last Admin: 02/11/20 09:12 Dose: 40 mg Fluticasone Propionate (Flonase) 0 gm NASBOTH DAILY [facility] Last Admin: 02/11/20 11:09 Dose: 2 spray Pantoprazole Sodium 40 mg/ (Sodium Chloride) 10 mls @ 300 mls/hr IV DAILY [facility] Last Admin: 02/11/20 09:14 Dose: 300 mls/hr Dextrose/Sodium Chloride (Dextrose 5%-1/2 Ns) 1,000 mls @ 75 mls/hr IV Q13H [facility] Last Admin: 02/10/20 21:24 Dose: 75 mls/hr Lorazepam (Ativan) 0.5 mg IVPUSH Q6H PRN PRN Reason: Anxiety Last Admin: 02/11/20 02:30 Dose: 0.5 mg Ondansetron HCl (Zofran) 4 mg IVPUSH Q4H PRN PRN Reason: Nausea/Vomitting Oxycodone HCl (Oxycodone) 10 mg PO Q6H PRN PRN Reason: Pain Last Admin: 02/11/20 09:12 Dose: 10 mg Sodium Chloride (Saline Flush) 10 ml FLUSH ASDIRECTED PRN PRN Reason: Keep Vein Open Last Admin: 02/08/20 22:24 Dose: 10 ml Sodium Chloride (Saline Flush) 2.5 ml FLUSH ASDIRECTED PRN PRN Reason: Keep Vein Open Last Admin: 02/08/20 22:24 Dose: 2.5 ml Sodium Chloride (Normal Saline) 10 ml IV ASDIRECTED PRN PRN Reason: IV Use Discontinued Medications Albuterol/Ipratropium (Duoneb 3.0-0.5 Mg/3 Ml) 3 ml NEB Q6HRRT PRN PRN Reason: Wheezing Last Admin: 02/10/20 12:52 Dose: 3 ml Fentanyl (Fentanyl) 50 mcg IVPUSH ONETIME ONE Stop: 02/08/20 22:16 Last Admin: 02/08/20 22:24 Dose: 50 mcg Hydromorphone HCl (Dilaudid) 1 mg IVPUSH Q4H PRN PRN Reason: Pain (severe 7-10) Last Admin: 02/11/20 03:41 Dose: 1 mg Lactated Ringer's (Ringers, Lactated) 1,000 mls @ 1,000 mls/hr IV .BOLUS ONE Stop: 02/08/20 23:14 Last Admin: 02/08/20 22:24 Dose: 1,000 mls/hr Lactated Ringer's (Ringers, Lactated) 1,000 mls @ 125 mls/hr IV ASDIRECTED [facility] Last Admin: 02/09/20 02:48 Dose: 125 mls/hr Dextrose/Sodium Chloride (Dextrose 5%-1/2 Ns) 1,000 mls @ 125 mls/hr IV Q8H [facility] Last Admin: 02/10/20 12:35 Dose: Not Given Iopamidol (Isovue-370 (76%)) 100 ml IVPUSH ONETIME STA Stop: 02/09/20 00:18 Last Admin: 02/09/20 00:17 Dose: 100 ml Magnesium Hydroxide (Milk Of Magnesia) 30 ml PO ONETIME ONE Stop: 02/10/20 09:12 Last Admin: 02/10/20 09:56 Dose: 30 ml Ondansetron HCl (Zofran) 4 mg IVPUSH ONETIME ONE Stop: 02/08/20 22:16 Last Admin: 02/08/20 22:24 Dose: 4 mg Oxycodone/Acetaminophen (Percocet 325-5 Mg) 2 tab PO ONETIME ONE Stop: 02/08/20 23:53 Last Admin: 02/09/20 00:43 Dose: 2 tab - Exam General: Reports: Alert, Oriented, Cooperative, No Acute Distress Lungs: Reports: Clear to Auscultation, Normal Respiratory Effort Cardiovascular: Reports: Regular Rate, Regular Rhythm GI/Abdominal Exam: Normal Bowel Sounds, Soft, Tender (scant tenderness to LUQ) Extremities: Normal Inspection, Normal Range of Motion, Non-Tender, No Pedal Edema Neurological: Reports: No New Focal Deficit Psy/Mental Status: Reports: Alert, Normal Affect, Normal Mood
[2020-02-11] MEDS: Dextrose 5%-0.45% NaCl 1,000 ML IV SCH (12:27)
== END 2020-02-11 16:00 | disposition home or self-care (01) ==
LOC: MW.ED 22:01 → MW.MS 02-09 00:22
PROVIDERS: ADMIT Student in an Organized Health Care Education/Training Program; ATTEND Student in an Organized Health Care Education/Training Program
DX: K56.609 Unspecified intestinal obstruction, unspecified as to partial versus complete obstruction (principal); K57.32 Diverticulitis of large intestine without perforation or abscess without bleeding; K43.5 Parastomal hernia without obstruction or gangrene; J43.9 Emphysema, unspecified; F41.9 Anxiety disorder, unspecified; F32.9 Major depressive disorder, single episode, unspecified; E78.5 Hyperlipidemia, unspecified; Z93.3 Colostomy status; Z98.890 Other specified postprocedural states; Z87.891 Personal history of nicotine dependence; Z79.899 Other long term (current) drug therapy; Z79.51 Long term (current) use of inhaled steroids
CPT/HCPCS: 36415; 74019; 74177; 80048; 80053; 82962; 83605; 83690; 83735; 84100; 84484; 85025; 93005; 94640; 96361; 96372; 96374; 96375; 96376; 99285; A9270; C9113; G0378; J1170; J1650; J2060; J2405; J3010; J7042; J7050; J7120; Q9967; 99283; J7620-GY

== ENCOUNTER 2020-02-19 20:26 | Observation (INO) | payer MEDICARE, OTHER ==
[2020-02-19] MEDS ORDERED: Sodium Chloride 0.9% 10 ML SDV IV PRN (20:41)
[2020-02-19] MEDS ORDERED: Sodium Chloride 0.9% 10 ML Syringe FLUSH PRN (20:41)
[2020-02-19] MEDS ORDERED: Sodium Chloride 0.9% 2.5 ML Syringe FLUSH PRN (20:41)
[2020-02-19] MEDS ORDERED: Ondansetron 4 MG/2 ML SDV IVPUSH ONE (20:41)
[2020-02-19] MEDS ORDERED: fentaNYL 50 MCG/ML SDV IVPUSH ONE ×2 (20:41→23:50)
[2020-02-19] MEDS ORDERED: Lactated Ringers 1,000 ML IV ONE (20:41)
--- NOTE | 2020-02-19 20:54 | EDM.PDOC ---
ED HPI GENERAL MEDICAL PROBLEM - General Chief Complaint: Gastrointestinal Problem Stated Complaint: BOWEL PROBLEM Time Seen by Provider: 02/19/20 20:29 Source of Information: Reports: Patient History Limitations: Reports: No Limitations - History of Present Illness INITIAL COMMENTS - FREE TEXT/NARRATIVE: 59-year female with a past medical history of parastomal hernia, perforated sigmoid diverticulitis requiring colostomy (2008), status post revision ( September 2019): Multiple SBO's, hyperlipidemia, anxiety, depression, COPD setting with abdominal pain. She reports a 3-day history of left upper and left lower quadrant abdominal pain. No bowel movement in the past 3 days, no flatus. Concerned that she has another bowel obstruction. Pain is constant, nonradiating, nothing makes it better or worse, rated as 8/10. No self treatment prior to arrival, no other complaints. Recently hospitalized here from February 08-2019 for small bowel obstruction. LLQ Pain Score (Numeric/FACES): 7 - Related Data Allergies Allergy/AdvReac Type Severity Reaction Status Date / Time No Known Allergies Allergy Verified 02/20/20 00:11 Home Meds: Home Meds ALPRAZolam [Xanax] 2 mg PO TID PRN 05/29/18 [History] Albuterol/Ipratropium [Combivent Respimat] 1 puff IH QID PRN 05/29/18 [History] Budesonide [Pulmicort] 1 dose NEB BEDTIME 11/04/18 [History] Fluticasone Propionate [Flonase] 2 puff NASBOTH DAILY 11/04/18 [History] busPIRone [Buspar] 15 mg PO BID 11/04/18 [History] Ondansetron [Zofran ODT] 4 mg PO Q6H PRN 08/04/19 [History] Rosuvastatin [Crestor] 5 mg PO BEDTIME 08/04/19 [History] Docusate Sodium [Colace] 100 mg PO BID 09/18/19 [History] Ipratropium/Albuterol Sulfate [Iprat-Albut 0.5-3(2.5) MG/3 ML] 3 ml NEB TID PRN 02/09/20 [History] Budesonide/Formoterol Fumarate [Symbicort 160-4.5 Mcg Inhaler] 6 gm IH DAILY [History] Past Medical History HEENT History: Reports: None Cardiovascular History: Reports: Heart Murmur 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 Respiratory History: Reports: COPD Other Respiratory History: emphsyema Gastrointestinal History: Reports: Bowel Obstruction, Diverticulosis, Other ( See Below) Other Gastrointestinal History: Bowel obstruction 2010, 2018, perforated sigmoid diverticulitis status post colostomy (2018): Status post colostomy takedown (September 2019), status post appendectomy Genitourinary History: Reports: None [employer] History: Reports: Other [employer] History: 4X C-sections Musculoskeletal History: Reports: Arthritis Neurological History: Reports: None Psychiatric History: Reports: Anxiety, Depression, Panic Attack Endocrine/Metabolic History: Reports: None Hematologic History: Reports: Blood Transfusion(s) Immunologic History: Reports: None Oncologic (Cancer) History: Reports: None Dermatologic History: Reports: None - Infectious Disease History Infectious Disease History: Reports: Chicken Pox - Past Surgical History Head Surgeries/Procedures: Reports: None HEENT Surgical History: Reports: Tonsillectomy Cardiovascular Surgical History: Reports: Cardiac Ablation Respiratory Surgical History: Reports: None GI Surgical History: Reports: Appendectomy, Colonoscopy, Colostomy, Other (See Below) Other GI Surgeries/Procedures: Colostomy: reversed in [place] Female Surgical History: Reports: Section, Tubal Ligation Endocrine Surgical History: Reports: None Neurological Surgical History: Reports: None Musculoskeletal Surgical History: Reports: None Oncologic Surgical History: Reports: None Dermatological Surgical History: Reports: None Social & Family History - Family History Family Medical History: Noncontributory - Tobacco Use Smoking Status *Q: Former Smoker Used Tobacco, but Quit: Yes Month/Year Tobacco Last Used: 5 years - Caffeine Use Caffeine Use: Reports: Coffee Other Caffeine Use: 3cups/day Caffeine Use Comment: 1/2 cup each day - Recreational Drug Use Recreational Drug Use: No ED ROS GENERAL - Review of Systems Review Of Systems: See Below Constitutional: Denies: Fever HEENT: Reports: No Symptoms Respiratory: Denies: Shortness of Breath Cardiovascular: Denies: Chest Pain Endocrine: Reports: No Symptoms GI/Abdominal: Reports: Abdominal Pain, Constipation, Nausea. Denies: Black Stool, Bloody Stool, Decreased Appetite, Distension, Flatus, Hematemesis, Hematochezia, Melena, Vomiting : Denies: Discharge, Dysuria, Flank Pain, Frequency, Hematuria, Incontinence Musculoskeletal: Denies: Back Pain Skin: Reports: No Symptoms Neurological: Denies: Headache Psychiatric: Reports: No Symptoms Hematologic/Lymphatic: Reports: No Symptoms Immunologic: Reports: No Symptoms ED EXAM, GI/ABD - Physical Exam Exam: See Below Text/Narrative:: Vital signs reviewed. Nursing notes reviewed. Constitutional: Awake, alert, non-distressed. Head: Normocephalic, atraumatic. Eyes: EOMI, conjunctiva normal, no discharge, no scleral icterus. Ears, Nose, Throat: External ears and ears normal, moist oral mucosa. Cardiovascular: Tachycardic, 2+ radial pulse, capillary refill less than 2 seconds. No M/R/G Pulmonary: normal work of breathing, no accessory muscle use. Clear to auscultation bilaterally Abdomen/GI: Soft, moderate tenderness in the left lower quadrant, mild tenderness in the left upper quadrant, nondistended, no guarding or rigidity, no masses. Musculoskeletal: No deformities. Integumentary: Appropriate color for ethnicity, warm, dry, no pallor or jaundice , no rash. Neurologic: Alert, answering questions appropriately, normal speech, no facial droop, moving all extremities well. Psychiatric: Appropriate mood and affect, normal thought process. EKG INTERPRETATION EKG Date: 02/19/20 Time: 20:57 Rhythm: NSR Rate (Beats/Min): 95 [place]: Normal P-Wave: Present QRS: Normal ST-T: Normal QT: Normal Comparison: NA - No Prior EKG Course - Vital Signs Text/Narrative:: Patient hemodynamically stable, afebrile, well-appearing, looks nontoxic. Differential diagnosis includes but is not limited to: Bowel obstruction, volvulus, ileus, perforation, intra-abdominal infection, epiploic appendagitis, diverticulitis, intra-abdominal hemorrhage, kidney stone, AAA, less likely to be UTI or pyelonephritis, myocardial infarction, sepsis, etc. 2153: Labs are reassuring. CBC is unremarkable, normal lactate, normal creatinine and electrolytes. Liver function tests are reassuring. Negative troponin. Nonischemic EKG. Awaiting CT scan and lipase. 2242: Lipase within normal limits. CT abdomen pelvis returned concerning for low-grade ileus with superimposed constipation. Will plan to admit to observation status. Hospitalist paged. Pain well controlled, patient resting comfortably. 2243: I discussed the case with Dr. Faulkner the hospitalist who agrees to admit observation. 2249: Reevaluated the patient. Complaining of mild but worsening pain. Ordered additional fentanyl. Awaiting admission. Last Recorded V/S: Last Vital Signs Temp 37.3 C 02/20/20 00:04 Pulse 91 02/20/20 00:04 Resp 16 02/20/20 00:04 BP 124/81 02/20/20 00:04 Pulse Ox 94 L 02/20/20 00:04 - Orders/Labs/Meds Orders: Active Orders 24 hr Category Date Time Status EKG 12 Lead [EKG Documentation Completion] [RC] STAT Care 02/19/20 20:42 Active Pulse Oximetry [RC] ASDIRECTED Care 02/19/20 20:41 Active Sodium Chloride 0.9% [Normal Saline] Med 02/19/20 20:41 Active 10 ml IV ASDIRECTED PRN Sodium Chloride 0.9% [Saline Flush] Med 02/19/20 20:41 Active 10 ml FLUSH ASDIRECTED PRN Sodium Chloride 0.9% [Saline Flush] Med 02/19/20 20:41 Active 2.5 ml FLUSH ASDIRECTED PRN Peripheral IV Insertion Adult [OM.PC] Stat Oth 02/19/20 20:41 Ordered Medication Orders Albuterol/Ipratropium (Duoneb 3.0-0.5 Mg/3 Ml) 3 ml NEB Q4HRRT PRN PRN Reason: Shortness of Breath Docusate Sodium (Colace) 100 mg PO BID [facility] Last Admin: 02/20/20 00:24 Dose: 100 mg Hydromorphone HCl (Dilaudid) 1 mg IVPUSH Q6H PRN PRN Reason: Pain (severe 7-10) Last Admin: 02/20/20 00:53 Dose: 1 mg Lactated Ringer's (Ringers, Lactated) 1,000 mls @ 125 mls/hr IV ASDIRECTED [facility] Last Admin: 02/20/20 00:08 Dose: 125 mls/hr Ketorolac Tromethamine (Toradol) 30 mg IVPUSH Q6H PRN PRN Reason: Pain Stop: 02/24/20 23:11 Last Admin: 02/20/20 00:24 Dose: 30 mg Lorazepam (Ativan) 1 mg IVPUSH Q8H PRN PRN Reason: Anxiety Sodium Chloride (Saline Flush) 10 ml FLUSH ASDIRECTED PRN PRN Reason: Keep Vein Open Last Admin: 02/19/20 20:51 Dose: 10 ml Sodium Chloride (Saline Flush) 2.5 ml FLUSH ASDIRECTED PRN PRN Reason: Keep Vein Open Last Admin: 02/19/20 20:51 Dose: 2.5 ml Sodium Chloride (Normal Saline) 10 ml IV ASDIRECTED PRN PRN Reason: IV Use Last Admin: 02/19/20 20:51 Dose: 10 ml Labs: Laboratory Tests 02/19/20 02/19/20 02/19/20 Range/Units 20:50 20:50 20:50 WBC 5.84 (4.0-11.0) K/uL RBC 4.68 (4.30-5.90) M/uL Hgb 13.6 (12.0-16.0) g/dL Hct 42.3 (36.0-46.0) % MCV 90.4 (80.0-98.0) fL MCH 29.1 (27.0-32.0) pg MCHC 32.2 (31.0-37.0) g/dL RDW Std Deviation 48.1 (28.0-62.0) fl RDW Coeff of Shaq 15 (11.0-15.0) % Plt Count 224 (150-400) K/uL MPV 10.00 (7.40-12.00) fL Neut % (Auto) 54.2 (48.0-80.0) % Lymph % (Auto) 31.8 (16.0-40.0) % [place] % (Auto) 11.6 (0.0-15.0) % Eos % (Auto) 2.1 (0.0-7.0) % Baso % (Auto) 0.3 (0.0-1.5) % Neut # (Auto) 3.2 (1.4-5.7) K/uL Lymph # (Auto) 1.9 (0.6-2.4) K/uL [place] # (Auto) 0.7 (0.0-0.8) K/uL Eos # (Auto) 0.1 (0.0-0.7) K/uL Baso # (Auto) 0.0 (0.0-0.1) K/uL Nucleated RBC % 0.0 /100WBC Nucleated RBCs # 0 K/uL Lactate 0.9 (0.20-2.00) mmol/L Sodium 138 (136-145) mmol/L Potassium 4.0 (3.5-5.1) mmol/L Chloride 103 (98-107) mmol/L Carbon Dioxide 27.6 (21.0-32.0) mmol/L BUN 9 (7.0-18.0) mg/dL Creatinine 0.9 (0.6-1.0) mg/dL Est Cr Clr Drug Dosing 58.75 mL/min Estimated GFR (MDRD) > 60.0 ml/min Glucose 91 (74-106) mg/dL Calcium 9.4 (8.5-10.1) mg/dL Total Bilirubin 1.0 (0.2-1.0) mg/dL AST 17 (15-37) IU/L ALT 15 (14-63) IU/L Alkaline Phosphatase 84 (46-116) U/L Troponin I < 0.050 (0.000-0.056) ng/mL Total Protein 7.6 (6.4-8.2) g/dL Albumin 4.0 (3.4-5.0) g/dL Globulin 3.6 (2.6-4.0) g/dL Albumin/Globulin Ratio 1.1 (0.9-1.6) Lipase (73-393) U/L 05/30/20 Range/Units 20:50 WBC (4.0-11.0) K/uL RBC (4.30-5.90) M/uL Hgb (12.0-16.0) g/dL Hct (36.0-46.0) % MCV (80.0-98.0) fL MCH (27.0-32.0) pg MCHC (31.0-37.0) g/dL RDW Std Deviation (28.0-62.0) fl RDW Coeff of Shaq (11.0-15.0) % Plt Count (150-400) K/uL MPV (7.40-12.00) fL Neut % (Auto) (48.0-80.0) % Lymph % (Auto) (16.0-40.0) % [place] % (Auto) (0.0-15.0) % Eos % (Auto) (0.0-7.0) % Baso % (Auto) (0.0-1.5) % Neut # (Auto) (1.4-5.7) K/uL Lymph # (Auto) (0.6-2.4) K/uL [place] # (Auto) (0.0-0.8) K/uL Eos # (Auto) (0.0-0.7) K/uL Baso # (Auto) (0.0-0.1) K/uL Nucleated RBC % /100WBC Nucleated RBCs # K/uL Lactate (0.20-2.00) mmol/L Sodium (136-145) mmol/L Potassium (3.5-5.1) mmol/L Chloride (98-107) mmol/L Carbon Dioxide (21.0-32.0) mmol/L BUN (7.0-18.0) mg/dL Creatinine (0.6-1.0) mg/dL Est Cr Clr Drug Dosing mL/min Estimated GFR (MDRD) ml/min Glucose (74-106) mg/dL Calcium (8.5-10.1) mg/dL Total Bilirubin (0.2-1.0) mg/dL AST (15-37) IU/L ALT (14-63) IU/L Alkaline Phosphatase (46-116) U/L Troponin I (0.000-0.056) ng/mL Total Protein (6.4-8.2) g/dL Albumin (3.4-5.0) g/dL Globulin (2.6-4.0) g/dL Albumin/Globulin Ratio (0.9-1.6) Lipase 43 L (73-393) U/L Meds: Medications Generic Name Dose Route Start Last Admin Trade Name Freq PRN Reason Stop Dose Admin Albuterol/Ipratropium 3 ml 02/19/20 23:10 Duoneb 3.0-0.5 Mg/3 Ml NEB Q4HRRT PRN Shortness of Breath Docusate Sodium 100 mg 02/19/20 23:15 05/31/20 00:24 Colace PO 100 mg BID [facility]ARA Administration Hydromorphone HCl 1 mg 02/19/20 23:10 02/20/20 00:53 Dilaudid IVPUSH 1 mg Q6H PRN Administration Pain (severe 7-10) Lactated Ringer's 1,000 mls @ 125 mls/hr 02/19/20 23:15 02/20/20 00:08 Ringers, Lactated IV 125 mls/hr ASDIRECTED [facility]ARA Administration Ketorolac Tromethamine 30 mg 02/19/20 23:10 02/20/20 00:24 Toradol IVPUSH 02/24/20 23:11 30 mg Q6H PRN Administration Pain Lorazepam 1 mg 02/19/20 23:10 Ativan IVPUSH Q8H PRN Anxiety Sodium Chloride 10 ml 02/19/20 20:41 02/19/20 20:51 Saline Flush FLUSH 10 ml ASDIRECTED PRN Administration Keep Vein Open Sodium Chloride 2.5 ml 02/19/20 20:41 02/19/20 20:51 Saline Flush FLUSH 2.5 ml ASDIRECTED PRN Administration Keep Vein Open Sodium Chloride 10 ml 02/19/20 20:41 02/19/20 20:51 Normal Saline IV 10 ml ASDIRECTED PRN Administration IV Use Discontinued Medications Generic Name Dose Route Start Last Admin Trade Name Freq PRN Reason Stop Dose Admin Fentanyl 50 mcg 02/19/20 20:41 02/19/20 20:51 Fentanyl IVPUSH 02/19/20 20:42 50 mcg ONETIME ONE Administration Fentanyl 50 mcg 02/19/20 23:50 Fentanyl IVPUSH 02/19/20 23:51 ONETIME ONE Lactated Ringer's 1,000 mls @ 1,000 mls/hr 02/19/20 20:41 02/19/20 20:51 Ringers, Lactated IV 02/19/20 21:40 1,000 mls/hr .BOLUS ONE Administration Iopamidol 72 ml 02/19/20 21:52 02/19/20 21:53 Isovue-370 (76%) IVPUSH 02/19/20 21:53 72 ml ONETIME ONE Administration Ondansetron HCl 4 mg 02/19/20 20:41 02/19/20 20:51 Zofran IVPUSH 02/19/20 20:42 4 mg ONETIME ONE Administration Departure - Departure Time of Disposition: 22:45 Disposition: Refer to Observation Condition: Good Clinical Impression: Ileus - Discharge Information Sepsis Event Note - Evaluation Sepsis Screening Result: No Definite Risk - Focused Exam Vital Signs: Vital Signs Temp Pulse Resp BP Pulse Ox 02/19/20 22:00 96 17 151/70 H 98 02/19/20 20:36 35.9 C L 122 H 17 154/71 H 94 L Date Exam was Performed: 02/20/20 Time Exam was Performed: 01:34 - My Orders Last 24 Hours: My Active Orders 02/19/20 20:41 Pulse Oximetry [RC] ASDIRECTED Sodium Chloride 0.9% [Normal Saline] 10 ml IV ASDIRECTED PRN Sodium Chloride 0.9% [Saline Flush] 10 ml FLUSH ASDIRECTED PRN Sodium Chloride 0.9% [Saline Flush] 2.5 ml FLUSH ASDIRECTED PRN Peripheral IV Insertion Adult [OM.PC] Stat 02/19/20 20:42 EKG 12 Lead [EKG Documentation Completion] [RC] STAT - Assessment/Plan Last 24 Hours: My Active Orders 02/19/20 20:41 Pulse Oximetry [RC] ASDIRECTED Sodium Chloride 0.9% [Normal Saline] 10 ml IV ASDIRECTED PRN Sodium Chloride 0.9% [Saline Flush] 10 ml FLUSH ASDIRECTED PRN Sodium Chloride 0.9% [Saline Flush] 2.5 ml FLUSH ASDIRECTED PRN Peripheral IV Insertion Adult [OM.PC] Stat 02/19/20 20:42 EKG 12 Lead [EKG Documentation Completion] [RC] STAT
[2020-02-19 21:20] LABS: BLOOD UREA NITROGEN,BUN 9 mg/dL (7.0-18.0); CARBON DIOXIDE,CO2 27.6 mmol/L (21.0-32.0); CHLORIDE,CL 103 mmol/L (98-107); GLUCOSE RANDOM 91 mg/dL (74-106); SODIUM,NA 138 mmol/L (136-145)
[2020-02-19] MEDS ORDERED: Iopamidol 755 Mg/ML 100 ML Bottle IVPUSH ONE (21:52)
--- NOTE | 2020-02-19 22:35 | CT ---
INDICATION: Abdominal pain. COMPARISON: Plain film [address] 08 Feb 2020. TECHNIQUE: 72 mL Isovue-370 IV contrast. FINDINGS: No significant finding in the visualized lung bases. Chronic mild biliary ductal dilatation changes. Anastomotic staple line in the left mid abdomen. Moderate amount of stool through the colon which is redundant. Stippled air within the luminal contents of mildly prominent but not frankly dilated small bowel. No free air or free fluid. Moderately distended urinary bladder. Some circumferential wall thickening. IMPRESSION: No significant interval change. Persistent appearance favoring low-grade ileus or enteritis. Likely superimposed constipation. Please note that all CT scans at this facility use dose modulation, iterative reconstruction, and/or weight-based dosing when appropriate to reduce radiation dose to as low as reasonably achievable. Dictated by Devon Michael MD @ Feb 19 2020 10:30PM Signed by Dr. Devon Michael @ Feb 19 2020 10:34PM
[2020-02-19] MEDS ORDERED: Albuterol/Ipratropium 3.0-0.5 MG/3 ML Neb Soln NEB PRN (23:10)
[2020-02-20] MEDS: Lactated Ringers 1,000 ML IV SCH ×3 (00:08→16:20)
[2020-02-20] MEDS: Docusate Sodium 100 MG Cap PO SCH ×3 (00:24→20:29)
[2020-02-20] MEDS: Ketorolac 30 MG/ML SDV IVPUSH PRN ×2 (00:24→08:48)
[2020-02-20] MEDS: HYDROmorphone 1 MG/ML Syringe IVPUSH PRN ×5 (00:53→20:28)
[2020-02-20] MEDS: LORazepam 2 MG/ML SDV IVPUSH PRN ×2 (08:30→19:00)
[2020-02-20] MEDS ORDERED: Bisacodyl 10 MG Supp RECTAL ONE (09:25)
--- NOTE | 2020-02-20 10:54 | PCM.HP.2 ---
H&P History of Present Illness - General Date of Service: 02/20/20 Admit Problem/Dx: Admission Diagnosis/Problem Admission Diagnosis/Problem Ileus - History of Present Illness Initial Comments - Free Text/Narative: Patient is a 59-year female with a past medical history of perforated sigmoid diverticulitis requiring colostomy (2008), complicated by parastomal hernia, status post revision (September 2019): Multiple SBO's, hyperlipidemia, anxiety, depression, COPD comes in with abdominal pain on going of past 3 days. Th epain is located in left upper and left lower quadrant abdominal pain, constant, 8/10 in severity.. No bowel movement or flatus in the past 3 days. 3 days back she has one small bowle moment which was blood tinged. Patient was recently hospitalized here from February 08-2019 for small bowel obstruction. In the ER Labs are unremarkable including CBC, BMP, LFTs, lactate, lipase. Negative troponin. Nonischemic EKG. CT abdomen pelvis showed findings concerning for low -grade ileus with superimposed constipation. Patient received fentanyl for pain. Patient was admitted to the hospital for further management. LLQ Pain Score (Numeric/FACES): 7 - Related Data Allergies/Adverse Reactions: Allergies Allergy/AdvReac Type Severity Reaction Status Date / Time No Known Allergies Allergy Verified 02/20/20 00:11 Home Medications: Home Meds ALPRAZolam [Xanax] 2 mg PO TID PRN 05/29/18 [History] Albuterol/Ipratropium [Combivent Respimat] 1 puff IH QID PRN 05/29/18 [History] Budesonide [Pulmicort] 1 dose NEB BEDTIME 11/04/18 [History] Fluticasone Propionate [Flonase] 2 puff NASBOTH DAILY 11/04/18 [History] busPIRone [Buspar] 15 mg PO BID 11/04/18 [History] Ondansetron [Zofran ODT] 4 mg PO Q6H PRN 08/04/19 [History] Rosuvastatin [Crestor] 5 mg PO BEDTIME 08/04/19 [History] Docusate Sodium [Colace] 100 mg PO BID 09/18/19 [History] Ipratropium/Albuterol Sulfate [Iprat-Albut 0.5-3(2.5) MG/3 ML] 3 ml NEB TID PRN 02/09/20 [History] Budesonide/Formoterol Fumarate [Symbicort 160-4.5 Mcg Inhaler] 6 gm IH DAILY [History] polyethylene glycoL 3350 [MiraLAX] 17 gm PO DAILY 02/20/20 [History] Past Medical History HEENT History: Reports: None Cardiovascular History: Reports: Heart Murmur 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 Respiratory History: Reports: COPD Other Respiratory History: emphsyema Gastrointestinal History: Reports: Bowel Obstruction, Diverticulosis, Other ( See Below) Other Gastrointestinal History: Bowel obstruction 2010, 2018, perforated sigmoid diverticulitis status post colostomy (2018): Status post colostomy takedown (September 2019), status post appendectomy Genitourinary History: Reports: None 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 OB/BYN History: 4X C-sections Musculoskeletal History: Reports: Arthritis Neurological History: Reports: None Psychiatric History: Reports: Anxiety, Depression, Panic Attack Endocrine/Metabolic History: Reports: None Hematologic History: Reports: Blood Transfusion(s) Immunologic History: Reports: None Oncologic (Cancer) History: Reports: None Dermatologic History: Reports: None - Infectious Disease History Infectious Disease History: Reports: Chicken Pox - Past Surgical History Head Surgeries/Procedures: Reports: None HEENT Surgical History: Reports: Tonsillectomy Cardiovascular Surgical History: Reports: Cardiac Ablation Respiratory Surgical History: Reports: None GI Surgical History: Reports: Appendectomy, Colonoscopy, Colostomy, Other (See Below) Other GI Surgeries/Procedures: Colostomy: reversed in [place] Female Surgical History: Reports: Section, Tubal Ligation Endocrine Surgical History: Reports: None Neurological Surgical History: Reports: None Musculoskeletal Surgical History: Reports: None Oncologic Surgical History: Reports: None Dermatological Surgical History: Reports: None Social & Family History - Family History Family Medical History: Noncontributory - Tobacco Use Smoking Status *Q: Former Smoker Used Tobacco, but Quit: Yes Month/Year Tobacco Last Used: 5 years - Caffeine Use Caffeine Use: Reports: Coffee Other Caffeine Use: 3cups/day Caffeine Use Comment: 1/2 cup each day - Recreational Drug Use Recreational Drug Use: No H&P Review of Systems - Review of Systems: General: Denies: Fever, Chills, Malaise HEENT: Denies: Dysphasia, Ear Pain, Eye Pain Pulmonary: Denies: Shortness of Breath, Wheezing Cardiovascular: Denies: Chest Pain, Palpitations, Dyspnea on Exertion Gastrointestinal: Reports: Abdominal Pain, Anorexia, Constipation, Decreased Appetite, Nausea. Denies: Black Stool, Diarrhea, Difficulty Swallowing, Flatus , Stool Incontinence, Vomiting Genitourinary: Denies: Dysuria, Frequency Musculoskeletal: Denies: Neck Pain, Shoulder Pain, Arm Pain Skin: Denies: Cyanosis, Jaundice, Mottled Psychiatric: Denies: Confusion, Depression, Mood Lability Neurological: Denies: Confusion, Dizziness, Headache Hematologic/Lymphatic: Denies: Anemia, Easy Bleeding, Easy Bruising Exam - Vital Signs Vital Signs: Last Vital Signs Temp 36.6 C 02/20/20 08:00 Pulse 79 02/20/20 08:00 Resp 18 02/20/20 08:00 BP 112/57 L 02/20/20 08:00 Pulse Ox 92 L 02/20/20 08:00 Weight: 57.969 kg - Exam Quality Assessment: Supplemental Oxygen General: Alert Neck: Supple, Trachea Midline Lungs: Clear to Auscultation, Normal Respiratory Effort Cardiovascular: Regular Rate, Regular Rhythm, Normal S1, Normal S2 GI/Abdominal Exam: Soft, No Distention, No Mass, Guarding, Tender. No: Hepatomegaly, Splenomegaly Extremities: Normal Inspection, Normal Range of Motion Peripheral Pulses: 3+: Dorsalis Pedis (L), Dorsalis Pedis (R) Neurological: Cranial Nerves Intact, Reflexes Equal Bilateral, Strength Equal Bilateral Neuro Extensive - Mental Status: Alert, Oriented x3, Normal Mood/Affect - Patient Data Lab Results Last 24 hrs: Laboratory Results - last 24 hr 02/19/20 02/19/20 02/19/20 Range/Units 20:50 20:50 20:50 WBC 5.84 (4.0-11.0) K/uL RBC 4.68 (4.30-5.90) M/uL Hgb 13.6 (12.0-16.0) g/dL Hct 42.3 (36.0-46.0) % MCV 90.4 (80.0-98.0) fL MCH 29.1 (27.0-32.0) pg MCHC 32.2 (31.0-37.0) g/dL RDW Std Deviation 48.1 (28.0-62.0) fl RDW Coeff of Shaq 15 (11.0-15.0) % Plt Count 224 (150-400) K/uL MPV 10.00 (7.40-12.00) fL Neut % (Auto) 54.2 (48.0-80.0) % Lymph % (Auto) 31.8 (16.0-40.0) % [place] % (Auto) 11.6 (0.0-15.0) % Eos % (Auto) 2.1 (0.0-7.0) % Baso % (Auto) 0.3 (0.0-1.5) % Neut # (Auto) 3.2 (1.4-5.7) K/uL Lymph # (Auto) 1.9 (0.6-2.4) K/uL [place] # (Auto) 0.7 (0.0-0.8) K/uL Eos # (Auto) 0.1 (0.0-0.7) K/uL Baso # (Auto) 0.0 (0.0-0.1) K/uL Nucleated RBC % 0.0 /100WBC Nucleated RBCs # 0 K/uL Lactate 0.9 (0.20-2.00) mmol/L Sodium 138 (136-145) mmol/L Potassium 4.0 (3.5-5.1) mmol/L Chloride 103 (98-107) mmol/L Carbon Dioxide 27.6 (21.0-32.0) mmol/L BUN 9 (7.0-18.0) mg/dL Creatinine 0.9 (0.6-1.0) mg/dL Est Cr Clr Drug Dosing 58.75 mL/min Estimated GFR (MDRD) > 60.0 ml/min Glucose 91 (74-106) mg/dL Calcium 9.4 (8.5-10.1) mg/dL Total Bilirubin 1.0 (0.2-1.0) mg/dL AST 17 (15-37) IU/L ALT 15 (14-63) IU/L Alkaline Phosphatase 84 (46-116) U/L Troponin I < 0.050 (0.000-0.056) ng/mL Total Protein 7.6 (6.4-8.2) g/dL Albumin 4.0 (3.4-5.0) g/dL Globulin 3.6 (2.6-4.0) g/dL Albumin/Globulin Ratio 1.1 (0.9-1.6) Lipase (73-393) U/L /30/20 Range/Units 20:50 WBC (4.0-11.0) K/uL RBC (4.30-5.90) M/uL Hgb (12.0-16.0) g/dL Hct (36.0-46.0) % MCV (80.0-98.0) fL MCH (27.0-32.0) pg MCHC (31.0-37.0) g/dL RDW Std Deviation (28.0-62.0) fl RDW Coeff of Shaq (11.0-15.0) % Plt Count (150-400) K/uL MPV (7.40-12.00) fL Neut % (Auto) (48.0-80.0) % Lymph % (Auto) (16.0-40.0) % Bacon % (Auto) (0.0-15.0) % Eos % (Auto) (0.0-7.0) % Baso % (Auto) (0.0-1.5) % Neut # (Auto) (1.4-5.7) K/uL Lymph # (Auto) (0.6-2.4) K/uL Bacon # (Auto) (0.0-0.8) K/uL Eos # (Auto) (0.0-0.7) K/uL Baso # (Auto) (0.0-0.1) K/uL Nucleated RBC % /100WBC Nucleated RBCs # K/uL Lactate (0.20-2.00) mmol/L Sodium (136-145) mmol/L Potassium (3.5-5.1) mmol/L Chloride (98-107) mmol/L Carbon Dioxide (21.0-32.0) mmol/L BUN (7.0-18.0) mg/dL Creatinine (0.6-1.0) mg/dL Est Cr Clr Drug Dosing mL/min Estimated GFR (MDRD) ml/min Glucose (74-106) mg/dL Calcium (8.5-10.1) mg/dL Total Bilirubin (0.2-1.0) mg/dL AST (15-37) IU/L ALT (14-63) IU/L Alkaline Phosphatase (46-116) U/L Troponin I (0.000-0.056) ng/mL Total Protein (6.4-8.2) g/dL Albumin (3.4-5.0) g/dL Globulin (2.6-4.0) g/dL Albumin/Globulin Ratio (0.9-1.6) Lipase 43 L (73-393) U/L Result Diagrams: 02/19/20 20:50 02/19/20 20:50 Sepsis Event Note - Evaluation Sepsis Screening Result: No Definite Risk - Focused Exam Vital Signs: Vital Signs Temp Pulse Resp BP Pulse Ox 02/20/20 08:00 36.6 C 79 18 112/57 L 92 L 02/20/20 05:33 91 L 02/20/20 05:32 36.9 C 89 16 121/64 85 L 02/20/20 00:04 37.3 C 91 16 124/81 94 L Date Exam was Performed: 02/20/20 Time Exam was Performed: 11:57 - Problem List (1) Abdominal pain SNOMED Code(s): 72105356 ICD Code: R10.9 - UNSPECIFIED ABDOMINAL PAIN Status: Acute Current Visit : No (2) Ileus SNOMED Code(s): 485614125 ICD Code: K56.7 - ILEUS, UNSPECIFIED Status: Acute Current Visit: Yes (3) Obstruction of intestine SNOMED Code(s): 90826393 ICD Code: K56.609 - UNSP INTESTNL OBST, UNSP TO PARTIAL VERSUS COMPLETE OBST Status: Acute Current Visit: No Qualifiers: Intestinal obstruction type: unspecified Intestinal obstruction extent: partial Qualified Code(s): K56.600 - Partial intestinal obstruction, unspecified as to cause (4) COPD (chronic obstructive pulmonary disease) SNOMED Code(s): 52908540 ICD Code: J44.9 - CHRONIC OBSTRUCTIVE PULMONARY DISEASE, UNSPECIFIED Status : Chronic Priority: Medium Current Visit: No Qualifiers: COPD type: unspecified COPD Qualified Code(s): J44.9 - Chronic obstructive pulmonary disease, unspecified (5) Hx of colostomy SNOMED Code(s): 192316178 ICD Code: [id number] - Status: Chronic Current Visit: No Problem List Initiated/Reviewed/Updated: Yes Orders Last 24hrs: Active Orders 24 hr Category Date Time Status Patient Status [ADT] Stat ADT 02/19/20 22:44 Active Antiembolic Devices [RC] PER UNIT ROUTINE Care 02/19/20 23:10 Active Pulse Oximetry [RC] ASDIRECTED Care 02/19/20 20:41 Active RT Aerosol Therapy [RC] ASDIRECTED Care 02/19/20 23:11 Active Vital Signs [RC] Q4H Care 02/19/20 23:10 Active Nothing Per Oral Diet [DIET] Diet 02/20/20 Breakfast Active Albuterol/Ipratropium [DuoNeb 3.0-0.5 MG/3 ML] Med 02/19/20 23:10 Active 3 ml NEB Q4HRRT PRN Docusate Sodium [Colace] Med 02/19/20 23:15 Active 100 mg PO BID HYDROmorphone [Dilaudid] Med 02/19/20 23:10 Active 1 mg IVPUSH Q6H PRN Ketorolac [Toradol] Med 02/19/20 23:10 Active 30 mg IVPUSH Q6H PRN LORazepam [Ativan] Med 02/19/20 23:10 Active 1 mg IVPUSH Q8H PRN Lactated Ringers [Ringers, Lactated] 1,000 ml Med 02/19/20 23:15 Active IV ASDIRECTED Sodium Chloride 0.9% [Normal Saline] Med 02/19/20 20:41 Active 10 ml IV ASDIRECTED PRN Sodium Chloride 0.9% [Saline Flush] Med 02/19/20 20:41 Active 10 ml FLUSH ASDIRECTED PRN Sodium Chloride 0.9% [Saline Flush] Med 02/19/20 20:41 Active 2.5 ml FLUSH ASDIRECTED PRN Peripheral IV Insertion Adult [OM.PC] Stat Oth 02/19/20 20:41 Ordered Sequential Compression Device [OM.PC] Routine Oth 02/19/20 23:10 Ordered Medication Orders Albuterol/Ipratropium (Duoneb 3.0-0.5 Mg/3 Ml) 3 ml NEB Q4HRRT PRN PRN Reason: Shortness of Breath Docusate Sodium (Colace) 100 mg PO BID [facility] Last Admin: 02/20/20 08:49 Dose: 100 mg Admin: 02/20/20 00:24 Dose: 100 mg Hydromorphone HCl (Dilaudid) 1 mg IVPUSH Q6H PRN PRN Reason: Pain (severe 7-10) Last Admin: 02/20/20 06:49 Dose: 1 mg Admin: 02/20/20 00:53 Dose: 1 mg Lactated Ringer's (Ringers, Lactated) 1,000 mls @ 125 mls/hr IV ASDIRECTED [facility], [facility] Last Admin: 02/20/20 08:24 Dose: 125 mls/hr Infusion: 02/20/20 08:08 Dose: 125 mls/hr Admin: 02/20/20 00:08 Dose: 125 mls/hr Ketorolac Tromethamine (Toradol) 30 mg IVPUSH Q6H PRN PRN Reason: Pain Stop: 02/24/20 23:11 Last Admin: 02/20/20 08:48 Dose: 30 mg Admin: 02/20/20 00:24 Dose: 30 mg Lorazepam (Ativan) 1 mg IVPUSH Q8H PRN PRN Reason: Anxiety Last Admin: 02/20/20 08:30 Dose: 1 mg Sodium Chloride (Saline Flush) 10 ml FLUSH ASDIRECTED PRN PRN Reason: Keep Vein Open Last Admin: 02/19/20 20:51 Dose: 10 ml Sodium Chloride (Saline Flush) 2.5 ml FLUSH ASDIRECTED PRN PRN Reason: Keep Vein Open Last Admin: 02/19/20 20:51 Dose: 2.5 ml Sodium Chloride (Normal Saline) 10 ml IV ASDIRECTED PRN PRN Reason: IV Use Last Admin: 02/19/20 20:51 Dose: 10 ml Assessment/Plan Comment:: 59 y/o F admitted for possible ileus/ bowel obstruction Keep patient NPO for now Start IVF LR@ 125 cc/hr For pain control start Dilaudid 1mg Q4H PRN pain Protonix IV daily Cont bowel regimen DuoNebs as needed for SOB Ativan as needed for Anxiety SCD for DVT ppx May advance diet later if symptoms improve
[2020-02-20] MEDS ORDERED: Magnesium Hydroxide 400 MG/5 ML Susp 30 ML Cup PO ONE (11:59)
[2020-02-20] MEDS: Pantoprazole 40 MG in Sodium Chloride 0.9% 10 ML IV SCH (12:46)
[2020-02-21] MEDS: Lactated Ringers 1,000 ML IV SCH ×2 (00:12→07:41)
[2020-02-21] MEDS: HYDROmorphone 1 MG/ML Syringe IVPUSH PRN ×2 (00:25→04:44)
[2020-02-21] MEDS: LORazepam 2 MG/ML SDV IVPUSH PRN (03:45)
[2020-02-21 06:49] LABS: BLOOD UREA NITROGEN,BUN 6 mg/dL (7.0-18.0); CARBON DIOXIDE,CO2 28.5 mmol/L (21.0-32.0); CHLORIDE,CL 106 mmol/L (98-107); GLUCOSE RANDOM 116 mg/dL (74-106); POTASSIUM,K 3.7 mmol/L (3.5-5.1); SODIUM,NA 141 mmol/L (136-145)
[2020-02-21] MEDS: oxyCODONE 5 MG Tab PO PRN ×4 (09:47→22:42)
[2020-02-21] MEDS: Pantoprazole 40 MG in Sodium Chloride 0.9% 10 ML IV SCH (09:48)
[2020-02-21] MEDS: ALPRAZolam 0.5 MG Tab PO PRN ×2 (09:48→18:33)
--- NOTE | 2020-02-21 11:44 | PCM.PN ---
- General Info Date of Service: 02/21/20 Subjective Update: Bedside: endorsing pain in LLQ but would like to advance diet; passing flatus and endorses 2-small BM since last night. +nausea but no emesis Functional Status: Denies: Pain Controlled - Review of Systems General: Denies: Fever HEENT: Reports: No Symptoms Pulmonary: Reports: No Symptoms Cardiovascular: Reports: No Symptoms Gastrointestinal: Reports: Abdominal Pain, Nausea. Denies: Constipation, Diarrhea, Vomiting Genitourinary: Reports: No Symptoms Musculoskeletal: Reports: No Symptoms Neurological: Reports: No Symptoms Psychiatric: Reports: No Symptoms - Patient Data Vitals - Most Recent: Last Vital Signs Temp 99.5 F 02/21/20 08:07 Pulse 71 02/21/20 08:07 Resp 16 02/21/20 08:07 BP 140/72 02/21/20 08:07 Pulse Ox 96 02/21/20 08:07 Weight - Most Recent: 57.969 kg I&O - Last 24 Hours: Intake & Output 02/20/20 02/21/20 02/21/20 22:59 06:59 14:59 Intake Total 1198 2374 Output Total 850 2700 Balance 348 -326 Lab Results Last 24 Hours: Laboratory Results - last 24 hr 02/21/20 02/21/20 Range/Units 06:15 06:15 WBC 3.58 L (4.0-11.0) K/uL RBC 3.77 L (4.30-5.90) M/uL Hgb 11.0 L (12.0-16.0) g/dL Hct 33.7 L (36.0-46.0) % MCV 89.4 (80.0-98.0) fL MCH 29.2 (27.0-32.0) pg MCHC 32.6 (31.0-37.0) g/dL RDW Std Deviation 45.7 (28.0-62.0) fl RDW Coeff of Shaq 14 (11.0-15.0) % Plt Count 165 (150-400) K/uL MPV 9.80 (7.40-12.00) fL Neut % (Auto) 53.3 (48.0-80.0) % Lymph % (Auto) 30.7 (16.0-40.0) % [place] % (Auto) 13.7 (0.0-15.0) % Eos % (Auto) 2.0 (0.0-7.0) % Baso % (Auto) 0.3 (0.0-1.5) % Neut # (Auto) 1.9 (1.4-5.7) K/uL Lymph # (Auto) 1.1 (0.6-2.4) K/uL [place] # (Auto) 0.5 (0.0-0.8) K/uL Eos # (Auto) 0.1 (0.0-0.7) K/uL Baso # (Auto) 0.0 (0.0-0.1) K/uL Nucleated RBC % 0.0 /100WBC Nucleated RBCs # 0 K/uL Sodium 141 (136-145) mmol/L Potassium 3.7 (3.5-5.1) mmol/L Chloride 106 (98-107) mmol/L Carbon Dioxide 28.5 (21.0-32.0) mmol/L BUN 6 L (7.0-18.0) mg/dL Creatinine 0.6 (0.6-1.0) mg/dL Est Cr Clr Drug Dosing 90.11 mL/min Estimated GFR (MDRD) > 60.0 ml/min Glucose 116 H (74-106) mg/dL Calcium 8.3 L (8.5-10.1) mg/dL Phosphorus 3.7 (2.6-4.7) mg/dL Magnesium 1.8 (1.8-2.4) mg/dL Med Orders - Current: Current Medications Albuterol/Ipratropium (Duoneb 3.0-0.5 Mg/3 Ml) 3 ml NEB Q4HRRT PRN PRN Reason: Shortness of Breath Alprazolam (Xanax) 2 mg PO TID PRN PRN Reason: Anxiety Last Admin: 02/21/20 09:48 Dose: 2 mg Budesonide (Pulmicort) 0 mg NEB BEDTIME CLARA Budesonide/Formoterol Fumarate (Symbicort 160-4.5 Mcg) 6 gm INH DAILY CLARA Buspirone HCl (Buspar) 15 mg PO BID CLARA Docusate Sodium (Colace) 100 mg PO BID CLARA Last Admin: 02/20/20 20:29 Dose: 100 mg Lactated Ringer's (Ringers, Lactated) 1,000 mls @ 125 mls/hr IV ASDIRECTED CLARA Last Admin: 02/21/20 07:41 Dose: 125 mls/hr Pantoprazole Sodium 40 mg/ (Sodium Chloride) 10 mls @ 300 mls/hr IV DAILY CLARA Last Admin: 02/21/20 09:48 Dose: 300 mls/hr Lorazepam (Ativan) 1 mg IVPUSH Q8H PRN PRN Reason: Anxiety Last Admin: 02/21/20 03:45 Dose: 1 mg Oxycodone HCl (Oxycodone) 5 mg PO Q4H PRN PRN Reason: Pain Last Admin: 02/21/20 09:47 Dose: 5 mg Sodium Chloride (Saline Flush) 10 ml FLUSH ASDIRECTED PRN PRN Reason: Keep Vein Open Last Admin: 02/19/20 20:51 Dose: 10 ml Sodium Chloride (Saline Flush) 2.5 ml FLUSH ASDIRECTED PRN PRN Reason: Keep Vein Open Last Admin: 02/19/20 20:51 Dose: 2.5 ml Sodium Chloride (Normal Saline) 10 ml IV ASDIRECTED PRN PRN Reason: IV Use Last Admin: 02/19/20 20:51 Dose: 10 ml Discontinued Medications Bisacodyl (Dulcolax) 10 mg RECTAL ONETIME ONE Stop: 02/20/20 09:26 Last Admin: 02/20/20 12:14 Dose: Not Given Fentanyl (Fentanyl) 50 mcg IVPUSH ONETIME ONE Stop: 02/19/20 20:42 Last Admin: 02/19/20 20:51 Dose: 50 mcg Fentanyl (Fentanyl) 50 mcg IVPUSH ONETIME ONE Stop: 02/19/20 23:51 Last Admin: 02/20/20 01:56 Dose: Not Given Hydromorphone HCl (Dilaudid) 1 mg IVPUSH Q6H PRN PRN Reason: Pain (severe 7-10) Last Admin: 02/20/20 06:49 Dose: 1 mg Hydromorphone HCl (Dilaudid) 1 mg IVPUSH Q4H PRN PRN Reason: Pain (severe 7-10) Last Admin: 02/21/20 04:44 Dose: 1 mg Lactated Ringer's (Ringers, Lactated) 1,000 mls @ 1,000 mls/hr IV .BOLUS ONE Stop: 02/19/20 21:40 Last Admin: 02/19/20 20:51 Dose: 1,000 mls/hr Iopamidol (Isovue-370 (76%)) 72 ml IVPUSH ONETIME ONE Stop: 02/19/20 21:53 Last Admin: 02/19/20 21:53 Dose: 72 ml Ketorolac Tromethamine (Toradol) 30 mg IVPUSH Q6H PRN PRN Reason: Pain Stop: 02/24/20 23:11 Last Admin: 02/20/20 08:48 Dose: 30 mg Magnesium Hydroxide (Milk Of Magnesia) 30 ml PO ONETIME ONE Stop: 02/20/20 12:00 Last Admin: 02/20/20 12:46 Dose: 30 ml Ondansetron HCl (Zofran) 4 mg IVPUSH ONETIME ONE Stop: 02/19/20 20:42 Last Admin: 02/19/20 20:51 Dose: 4 mg - Exam Quality Assessment: No: Supplemental Oxygen General: Alert, Oriented HEENT: EOMI, Mucous Membr. Moist/[place] Neck: Supple Lungs: Clear to Auscultation, Normal Respiratory Effort Cardiovascular: Regular Rate, Regular Rhythm GI/Abdominal Exam: Soft, Other (tenderness in LLQ > RLQ; otherwise no rebound tenderness; BS appreciated. ) Skin: Warm, Dry Neurological: No New Focal Deficit Psy/Mental Status: Alert, Normal Affect Sepsis Event Note - Evaluation Sepsis Screening Result: No Definite Risk - Focused Exam Vital Signs: Vital Signs Temp Pulse Resp BP Pulse Ox 02/21/20 08:07 99.5 F 71 16 140/72 96 02/21/20 03:49 98.3 F 79 16 134/60 95 02/21/20 00:08 98.4 F 85 15 136/77 95 Date Exam was Performed: 02/21/20 Time Exam was Performed: 11:38 - Problem List Review Problem List Initiated/Reviewed/Updated: Yes - My Orders Last 24 Hours: My Active Orders 02/21/20 09:18 oxyCODONE 5 mg PO Q4H PRN 02/21/20 09:20 ALPRAZolam [Xanax] 2 mg PO TID PRN 02/21/20 21:00 Budesonide [Pulmicort] 0 mg NEB BEDTIME busPIRone [Buspar] 15 mg PO BID 02/22/20 09:00 Budesonide/Formoterol [Symbicort 160-4.5 MCG] 6 gm INH DAILY - Plan Plan:: 59 y/o F admitted for possible ileus Bowel obstruction r/o on CT abdomen/pelvis Advance diet to full liquid to soft Hold IV fluids if tolerating PO; can restart if necessary. For pain control : start pt. on Oxycodone 5 mg; if pain managed and no increase in pain w. advancing of diet; will consider dc; however pt has tendency to return due to uncontrolled pain; will keep low threshold to hold patient until appropriate plan in palce Protonix IV daily Cont bowel regimen DuoNebs as needed for SOB Ativan as needed for Anxiety SCD for DVT ppx Electrolytes: repleted Magnesium this AM
[2020-02-21] MEDS: Fluticasone Propionate Nasal Spray 16 GM Bottle NASBOTH SCH (14:00)
[2020-02-21] MEDS: Docusate Sodium 100 MG Cap PO SCH ×2 (15:46→22:05)
[2020-02-21] MEDS ORDERED: Budesonide 0.5 MG/2 ML Neb Susp NEB SCH (21:00)
[2020-02-21] MEDS: busPIRone 5 MG Tab PO SCH (22:05)
[2020-02-22] MEDS: Lactated Ringers 1,000 ML IV SCH ×2 (00:17→08:19)
[2020-02-22] MEDS: oxyCODONE 5 MG Tab PO PRN ×4 (02:53→15:14)
[2020-02-22] MEDS: ALPRAZolam 0.5 MG Tab PO PRN ×2 (06:18→15:15)
[2020-02-22 06:55] LABS: BLOOD UREA NITROGEN,BUN 12 mg/dL (7.0-18.0); CARBON DIOXIDE,CO2 28.6 mmol/L (21.0-32.0); CHLORIDE,CL 108 mmol/L (98-107); GLUCOSE RANDOM 103 mg/dL (74-106); POTASSIUM,K 3.8 mmol/L (3.5-5.1); SODIUM,NA 144 mmol/L (136-145)
[2020-02-22] MEDS ORDERED: Budesonide/Formoterol 160-4.5 MCG/Puff 6 GM Inhaler INH SCH (09:00)
[2020-02-22] MEDS: Fluticasone Propionate Nasal Spray 16 GM Bottle NASBOTH SCH (10:01)
[2020-02-22] MEDS: Pantoprazole 40 MG in Sodium Chloride 0.9% 10 ML IV SCH (10:01)
[2020-02-22] MEDS: busPIRone 5 MG Tab PO SCH (10:02)
[2020-02-22] MEDS: Docusate Sodium 100 MG Cap PO SCH (10:02)
--- NOTE | 2020-02-22 14:59 | PCM.DCSUM1 ---
<Sadie Christopher - Last Filed: 02/22/20 17:19> Discharge Summary - Hospital Course Free Text/Narrative:: Discharge summary Consultations:None Procedures: Hospital course: CT abdomen pelvis: Persistence appearance favoring low-grade ileus or enteritis. Hospital course; patient is a 59-year-old female with a significant past medical history of perforated sigmoid diverticulitis: At one point requiring a colostomy; subsequent complicated parastomal hernia and currently status post revision (September 2019). Patient is well-known to the service secondary to multiple SBO's, hyperlipidemia anxiety depression COPD; coming in for abdominal pain going on for 3 days prior to admission. Pain predominately located in left lower quadrant/left upper quadrant and is more or less constant at 8 out of 10. Labs on admission were unremarkable including CBC BMP LFTs lactate and lipase, negative troponin. EKG was also nonischemic. CT abdomen pelvis showed : Images favoring low-grade ileus and or enteritis. Patient was made n.p.o., IV fluid was started and Dilaudid was given for pain control x 1. Patient was also started on bowel regimen and duo nebs for her persistent history of ileus and COPD respectively. Patient tolerated advancement of diet to full liquids and pain management was continued using Oxycodone PRN. Discussion was made with patient's primary physician; noting multiple repeat admissions for chronic issue of abdominal pain status post revision; decided at this junction to start patient on gabapentin at increasing interval doses and use oxycodone for breakthrough pain. Significant time spent on discussing risks and benefits of opioid medication especially in a patient with history of small bowel obstruction; advised patient to continue a liquid to soft mechanical diet and goal is to not use oxycodone. Patient understood and states that this is the only medication that is helping her pain but understands the risks and benefits ; patient will try to use medication only for breakthrough pain and continue on the gabapentin. Patient will also make a effort to follow-up with her surgeon who had done reversal possibly gastroenterology in [facility]. Patient discharged in stable conditions with above mentioned directions. Discharge condition: Stable Disposition:Home Follow-up: PCP GI Surgery - Discharge Data Discharge Date: 02/22/20 Discharge Disposition: Home, Self-Care 01 Condition: Stable - Referral to Home Health Primary Care Physician: Yaw Loza MD - Discharge Plan Prescriptions/Med Rec: Gabapentin [Neurontin] 300 mg PO DAILY #20 cap Home Medications: Home Meds ALPRAZolam [Xanax] 2 mg PO TID PRN 05/29/18 [History] Albuterol/Ipratropium [Combivent Respimat] 1 puff IH QID PRN 05/29/18 [History] Fluticasone Propionate [Flonase] 2 puff NASBOTH DAILY 11/04/18 [History] busPIRone [Buspar] 15 mg PO BID 11/04/18 [History] Ondansetron [Zofran ODT] 4 mg PO Q6H PRN 08/04/19 [History] Rosuvastatin [Crestor] 5 mg PO BEDTIME 08/04/19 [History] Docusate Sodium [Colace] 100 mg PO BID 09/18/19 [History] Ipratropium/Albuterol Sulfate [Iprat-Albut 0.5-3(2.5) MG/3 ML] 3 ml NEB TID PRN 02/09/20 [History] Budesonide/Formoterol Fumarate [Symbicort 160-4.5 Mcg Inhaler] 6 gm IH DAILY [History] polyethylene glycoL 3350 [MiraLAX] 17 gm PO DAILY 02/20/20 [History] Docusate Sodium [Colace] 100 mg PO BID cap 02/22/20 [Rx] Fluticasone Propionate [Flonase] 1 spr NASBOTH DAILY bottle 02/22/20 [Rx] Gabapentin [Neurontin] 300 mg PO DAILY #20 cap 02/22/20 [Rx] oxyCODONE 5 mg PO Q2HR PRN tablet 02/22/20 [Rx] Patient Handouts: Gabapentin capsules or tablets, Oxycodone tablets or capsules , Bowel Obstruction, Ziga-dc-Hona Referrals: Sadie Christopher MD [Resident] - 03/02/20 2:30 pm (There are no appointments available for Dr. Loza. Therefore, we have set you up with a resident in his clinic.) Yaw Loza MD [Primary Care Provider] - - Discharge Summary/Plan Comment DC Time >30 min.: No - Patient Data Vitals - Most Recent: Last Vital Signs Temp 97.8 F 02/22/20 13:00 Pulse 72 02/22/20 13:00 Resp 16 02/22/20 13:00 BP 138/71 02/22/20 13:00 Pulse Ox 96 02/22/20 13:00 Weight - Most Recent: 57.969 kg I&O - Last 24 hours: Intake & Output 02/21/20 02/22/20 02/22/20 22:59 06:59 14:59 Intake Total 2330 1900 Output Total 2100 1600 Balance 230 300 Lab Results - Last 24 hrs: Laboratory Results - last 24 hr 02/22/20 02/22/20 Range/Units 06:20 06:20 WBC 4.79 (4.0-11.0) K/uL RBC 4.05 L (4.30-5.90) M/uL Hgb 11.7 L (12.0-16.0) g/dL Hct 36.2 (36.0-46.0) % MCV 89.4 (80.0-98.0) fL MCH 28.9 (27.0-32.0) pg MCHC 32.3 (31.0-37.0) g/dL RDW Std Deviation 45.9 (28.0-62.0) fl RDW Coeff of Shaq 14 (11.0-15.0) % Plt Count 186 (150-400) K/uL MPV 9.70 (7.40-12.00) fL Neut % (Auto) 48.3 (48.0-80.0) % Lymph % (Auto) 36.3 (16.0-40.0) % [place] % (Auto) 12.9 (0.0-15.0) % Eos % (Auto) 2.1 (0.0-7.0) % Baso % (Auto) 0.4 (0.0-1.5) % Neut # (Auto) 2.3 (1.4-5.7) K/uL Lymph # (Auto) 1.7 (0.6-2.4) K/uL [place] # (Auto) 0.6 (0.0-0.8) K/uL Eos # (Auto) 0.1 (0.0-0.7) K/uL Baso # (Auto) 0.0 (0.0-0.1) K/uL Nucleated RBC % 0.0 /100WBC Nucleated RBCs # 0 K/uL Sodium 144 (136-145) mmol/L Potassium 3.8 (3.5-5.1) mmol/L Chloride 108 H (98-107) mmol/L Carbon Dioxide 28.6 (21.0-32.0) mmol/L BUN 12 (7.0-18.0) mg/dL Creatinine 0.7 (0.6-1.0) mg/dL Est Cr Clr Drug Dosing 77.23 mL/min Estimated GFR (MDRD) > 60.0 ml/min Glucose 103 (74-106) mg/dL Calcium 8.5 (8.5-10.1) mg/dL Total Bilirubin 0.7 (0.2-1.0) mg/dL AST 12 L (15-37) IU/L ALT 18 (14-63) IU/L Alkaline Phosphatase 67 (46-116) U/L Total Protein 6.7 (6.4-8.2) g/dL Albumin 3.4 (3.4-5.0) g/dL Globulin 3.3 (2.6-4.0) g/dL Albumin/Globulin Ratio 1.0 (0.9-1.6) Med Orders - Current: Current Medications Albuterol/Ipratropium (Duoneb 3.0-0.5 Mg/3 Ml) 3 ml NEB Q4HRRT PRN PRN Reason: Shortness of Breath Alprazolam (Xanax) 2 mg PO TID PRN PRN Reason: Anxiety Last Admin: 02/22/20 06:18 Dose: 2 mg Budesonide (Pulmicort) 0 mg NEB BEDTIME [facility] Last Admin: 02/21/20 21:57 Dose: 0.5 mg Budesonide/Formoterol Fumarate (Symbicort 160-4.5 Mcg) 6 gm INH DAILY [facility] Last Admin: 02/22/20 10:37 Dose: Not Given Buspirone HCl (Buspar) 15 mg PO BID [facility] Last Admin: 02/22/20 10:02 Dose: 15 mg Docusate Sodium (Colace) 100 mg PO BID [facility] Last Admin: 02/22/20 10:02 Dose: 100 mg Fluticasone Propionate (Flonase) 0 gm NASBOTH DAILY [facility] Last Admin: 02/22/20 10:01 Dose: 2 spray Lactated Ringer's (Ringers, Lactated) 1,000 mls @ 125 mls/hr IV ASDIRECTED [facility] Last Admin: 02/22/20 08:19 Dose: 125 mls/hr Pantoprazole Sodium 40 mg/ (Sodium Chloride) 10 mls @ 300 mls/hr IV DAILY [facility] Last Admin: 02/22/20 10:01 Dose: 300 mls/hr Oxycodone HCl (Oxycodone) 5 mg PO Q4H PRN PRN Reason: Pain Last Admin: 02/22/20 10:56 Dose: 5 mg Sodium Chloride (Saline Flush) 10 ml FLUSH ASDIRECTED PRN PRN Reason: Keep Vein Open Last Admin: 02/19/20 20:51 Dose: 10 ml Sodium Chloride (Saline Flush) 2.5 ml FLUSH ASDIRECTED PRN PRN Reason: Keep Vein Open Last Admin: 02/19/20 20:51 Dose: 2.5 ml Sodium Chloride (Normal Saline) 10 ml IV ASDIRECTED PRN PRN Reason: IV Use Last Admin: 02/19/20 20:51 Dose: 10 ml Discontinued Medications Bisacodyl (Dulcolax) 10 mg RECTAL ONETIME ONE Stop: 02/20/20 09:26 Last Admin: 02/20/20 12:14 Dose: Not Given Fentanyl (Fentanyl) 50 mcg IVPUSH ONETIME ONE Stop: 02/19/20 20:42 Last Admin: 02/19/20 20:51 Dose: 50 mcg Fentanyl (Fentanyl) 50 mcg IVPUSH ONETIME ONE Stop: 02/19/20 23:51 Last Admin: 02/20/20 01:56 Dose: Not Given Hydromorphone HCl (Dilaudid) 1 mg IVPUSH Q6H PRN PRN Reason: Pain (severe 7-10) Last Admin: 02/20/20 06:49 Dose: 1 mg Hydromorphone HCl (Dilaudid) 1 mg IVPUSH Q4H PRN PRN Reason: Pain (severe 7-10) Last Admin: 02/21/20 04:44 Dose: 1 mg Lactated Ringer's (Ringers, Lactated) 1,000 mls @ 1,000 mls/hr IV .BOLUS ONE Stop: 02/19/20 21:40 Last Admin: 02/19/20 20:51 Dose: 1,000 mls/hr Iopamidol (Isovue-370 (76%)) 72 ml IVPUSH ONETIME ONE Stop: 02/19/20 21:53 Last Admin: 02/19/20 21:53 Dose: 72 ml Ketorolac Tromethamine (Toradol) 30 mg IVPUSH Q6H PRN PRN Reason: Pain Stop: 02/24/20 23:11 Last Admin: 02/20/20 08:48 Dose: 30 mg Lorazepam (Ativan) 1 mg IVPUSH Q8H PRN PRN Reason: Anxiety Last Admin: 02/21/20 03:45 Dose: 1 mg Magnesium Hydroxide (Milk Of Magnesia) 30 ml PO ONETIME ONE Stop: 02/20/20 12:00 Last Admin: 02/20/20 12:46 Dose: 30 ml Ondansetron HCl (Zofran) 4 mg IVPUSH ONETIME ONE Stop: 02/19/20 20:42 Last Admin: 02/19/20 20:51 Dose: 4 mg <Gibran Fuller - Last Filed: 02/22/20 20:46> Discharge Summary - Referral to Home Health Primary Care Physician: Yaw Loza MD - Patient Data Vitals - Most Recent: Last Vital Signs Temp 36.6 C 02/22/20 13:00 Pulse 72 02/22/20 13:00 Resp 16 02/22/20 13:00 BP 138/71 02/22/20 13:00 Pulse Ox 96 02/22/20 13:00 I&O - Last 24 hours: Intake & Output 02/22/20 02/22/20 02/22/20 06:59 14:59 22:59 Intake Total 1900 Output Total 1600 Balance 300 Lab Results - Last 24 hrs: Laboratory Results - last 24 hr 02/22/20 02/22/20 Range/Units 06:20 06:20 WBC 4.79 (4.0-11.0) K/uL RBC 4.05 L (4.30-5.90) M/uL Hgb 11.7 L (12.0-16.0) g/dL Hct 36.2 (36.0-46.0) % MCV 89.4 (80.0-98.0) fL MCH 28.9 (27.0-32.0) pg MCHC 32.3 (31.0-37.0) g/dL RDW Std Deviation 45.9 (28.0-62.0) fl RDW Coeff of Shaq 14 (11.0-15.0) % Plt Count 186 (150-400) K/uL MPV 9.70 (7.40-12.00) fL Neut % (Auto) 48.3 (48.0-80.0) % Lymph % (Auto) 36.3 (16.0-40.0) % [place] % (Auto) 12.9 (0.0-15.0) % Eos % (Auto) 2.1 (0.0-7.0) % Baso % (Auto) 0.4 (0.0-1.5) % Neut # (Auto) 2.3 (1.4-5.7) K/uL Lymph # (Auto) 1.7 (0.6-2.4) K/uL [place] # (Auto) 0.6 (0.0-0.8) K/uL Eos # (Auto) 0.1 (0.0-0.7) K/uL Baso # (Auto) 0.0 (0.0-0.1) K/uL Nucleated RBC % 0.0 /100WBC Nucleated RBCs # 0 K/uL Sodium 144 (136-145) mmol/L Potassium 3.8 (3.5-5.1) mmol/L Chloride 108 H (98-107) mmol/L Carbon Dioxide 28.6 (21.0-32.0) mmol/L BUN 12 (7.0-18.0) mg/dL Creatinine 0.7 (0.6-1.0) mg/dL Est Cr Clr Drug Dosing 77.23 mL/min Estimated GFR (MDRD) > 60.0 ml/min Glucose 103 (74-106) mg/dL Calcium 8.5 (8.5-10.1) mg/dL Total Bilirubin 0.7 (0.2-1.0) mg/dL AST 12 L (15-37) IU/L ALT 18 (14-63) IU/L Alkaline Phosphatase 67 (46-116) U/L Total Protein 6.7 (6.4-8.2) g/dL Albumin 3.4 (3.4-5.0) g/dL Globulin 3.3 (2.6-4.0) g/dL Albumin/Globulin Ratio 1.0 (0.9-1.6) Med Orders - Current: Current Medications Discontinued Medications Albuterol/Ipratropium (Duoneb 3.0-0.5 Mg/3 Ml) 3 ml NEB Q4HRRT PRN PRN Reason: Shortness of Breath Alprazolam (Xanax) 2 mg PO TID PRN PRN Reason: Anxiety Last Admin: 02/22/20 15:15 Dose: 2 mg Bisacodyl (Dulcolax) 10 mg RECTAL ONETIME ONE Stop: 02/20/20 09:26 Last Admin: 02/20/20 12:14 Dose: Not Given Budesonide (Pulmicort) 0 mg NEB BEDTIME [facility] Last Admin: 02/21/20 21:57 Dose: 0.5 mg Budesonide/Formoterol Fumarate (Symbicort 160-4.5 Mcg) 6 gm INH DAILY [facility] Last Admin: 02/22/20 10:37 Dose: Not Given Buspirone HCl (Buspar) 15 mg PO BID [facility] Last Admin: 02/22/20 10:02 Dose: 15 mg Docusate Sodium (Colace) 100 mg PO BID [facility] Last Admin: 02/22/20 10:02 Dose: 100 mg Fentanyl (Fentanyl) 50 mcg IVPUSH ONETIME ONE Stop: 02/19/20 20:42 Last Admin: 02/19/20 20:51 Dose: 50 mcg Fentanyl (Fentanyl) 50 mcg IVPUSH ONETIME ONE Stop: 02/19/20 23:51 Last Admin: 02/20/20 01:56 Dose: Not Given Fluticasone Propionate (Flonase) 0 gm NASBOTH DAILY [facility] Last Admin: 02/22/20 10:01 Dose: 2 spray Hydromorphone HCl (Dilaudid) 1 mg IVPUSH Q6H PRN PRN Reason: Pain (severe 7-10) Last Admin: 02/20/20 06:49 Dose: 1 mg Hydromorphone HCl (Dilaudid) 1 mg IVPUSH Q4H PRN PRN Reason: Pain (severe 7-10) Last Admin: 02/21/20 04:44 Dose: 1 mg Lactated Ringer's (Ringers, Lactated) 1,000 mls @ 1,000 mls/hr IV .BOLUS ONE Stop: 02/19/20 21:40 Last Admin: 02/19/20 20:51 Dose: 1,000 mls/hr Lactated Ringer's (Ringers, Lactated) 1,000 mls @ 125 mls/hr IV ASDIRECTED [facility] Last Admin: 02/22/20 08:19 Dose: 125 mls/hr Pantoprazole Sodium 40 mg/ (Sodium Chloride) 10 mls @ 300 mls/hr IV DAILY [facility] Last Admin: 02/22/20 10:01 Dose: 300 mls/hr Iopamidol (Isovue-370 (76%)) 72 ml IVPUSH ONETIME ONE Stop: 02/19/20 21:53 Last Admin: 02/19/20 21:53 Dose: 72 ml Ketorolac Tromethamine (Toradol) 30 mg IVPUSH Q6H PRN PRN Reason: Pain Stop: 02/24/20 23:11 Last Admin: 02/20/20 08:48 Dose: 30 mg Lorazepam (Ativan) 1 mg IVPUSH Q8H PRN PRN Reason: Anxiety Last Admin: 02/21/20 03:45 Dose: 1 mg Magnesium Hydroxide (Milk Of Magnesia) 30 ml PO ONETIME ONE Stop: 02/20/20 12:00 Last Admin: 02/20/20 12:46 Dose: 30 ml Ondansetron HCl (Zofran) 4 mg IVPUSH ONETIME ONE Stop: 02/19/20 20:42 Last Admin: 02/19/20 20:51 Dose: 4 mg Oxycodone HCl (Oxycodone) 5 mg PO Q4H PRN PRN Reason: Pain Last Admin: 02/22/20 15:14 Dose: 5 mg Sodium Chloride (Saline Flush) 10 ml FLUSH ASDIRECTED PRN PRN Reason: Keep Vein Open Last Admin: 02/19/20 20:51 Dose: 10 ml Sodium Chloride (Saline Flush) 2.5 ml FLUSH ASDIRECTED PRN PRN Reason: Keep Vein Open Last Admin: 02/19/20 20:51 Dose: 2.5 ml Sodium Chloride (Normal Saline) 10 ml IV ASDIRECTED PRN PRN Reason: IV Use Last Admin: 02/19/20 20:51 Dose: 10 ml - Free Text/Narrative Note: I have seen and evaluated the patient with the resident. I have discussed findings and treatment plan with resident. I agree with the assessment and plan as outlined in the following note.
== END 2020-02-22 17:10 | disposition home or self-care (01) ==
LOC: MW.ED 20:26 → MW.MS 22:44
PROVIDERS: ADMIT Student in an Organized Health Care Education/Training Program; ATTEND Student in an Organized Health Care Education/Training Program
DX: K56.600 Partial intestinal obstruction, unspecified as to cause (principal); F41.0 Panic disorder [episodic paroxysmal anxiety]; F32.9 Major depressive disorder, single episode, unspecified; E78.5 Hyperlipidemia, unspecified; J43.9 Emphysema, unspecified; Z93.3 Colostomy status; Z87.891 Personal history of nicotine dependence; Z79.899 Other long term (current) drug therapy; Z79.51 Long term (current) use of inhaled steroids
CPT/HCPCS: 36415; 74177; 80048; 80053; 83605; 83690; 83735; 84100; 84484; 85025; 93005; 96374; 96375; 99285; A9270; C9113; J1170; J1885; J2060; J2405; J3010; J7050; J7120; Q9967; 96361; 96376; 99283; G0378

== ENCOUNTER 2020-05-08 17:19 | Observation (INO) | payer MEDICARE, OTHER ==
--- NOTE | 2020-05-08 17:52 | EDM.PDOC ---
ED HPI GENERAL MEDICAL PROBLEM - General Chief Complaint: Gastrointestinal Problem Stated Complaint: PT STATES POSSIBLE BOWEL OBSTRUCTION Time Seen by Provider: 05/08/20 17:27 Source of Information: Reports: Patient History Limitations: Reports: No Limitations - History of Present Illness INITIAL COMMENTS - FREE TEXT/NARRATIVE: HISTORY AND PHYSICAL: History of present illness: Patient is a 59-year-old female with a past medical history of perforated sigmoid diverticulitis requiring colon ostomy in 2008, complicated by parastomal hernia, status post revision in September 2019. She has had multiple small bowel obstructions, hyperlipidemia, anxiety, depression, COPD and chronic abdominal pain. Patient was last admitted to the hospital on 02/19/2020 for management of an ileus. She states over the past few months she has been doing well. Started to have some left lower abdominal pain approximately 4 days ago. States she passed a small amount of stool yesterday and is now fearful to eat/drink as it is causing too much pain. She does have some nausea without vomiting. Patient denies any fever, headache, change in vision, syncope or near syncope. Denies any chest pain, back pain, shortness of breath or cough. Denies any dysuria, or noting any blood in urine or stool. Upon asking COVID-19 screening questions she said she has had some intermittent body aches although currently does not have these symptoms while here in the emergency room. No recent travel. No exposure to anyone who is been ill. She does not have any immediate concerns of COVID-19. Review of systems: As per history of present illness and below otherwise all systems reviewed and negative. Past medical history: As per history of present illness and as reviewed below otherwise noncont ributory. Surgical history: As per history of present illness and as reviewed below otherwise noncontributory. Social history: See social history for further information Family history: As per history of present illness and as reviewed below otherwise noncontributory. Physical exam: General: Well developed and well nourished. Alert and orientated x 3. Nontoxic in appearance and in no acute distress. Vital signs are stable and have been reviewed by me. Nursing notes were reviewed. HEENT: Atraumatic, normocephalic, pupils equal and reactive bilaterally, negative for conjunctival pallor or scleral icterus, mucous membranes moist, trachea midline. No drooling or trismus noted. No meningeal signs. No hot potato voice noted. Lungs: Clear to auscultation, breath sounds equal bilaterally, chest nontender. Normal work of breathing, no accessory muscles used. Heart: S1S2, regular rate and rhythm without overt murmur Abdomen: Soft, semi-firm throughout, multiple scars noted to abdomen, left lower quadrant tenderness. Negative for costovertebral tenderness. Pelvis: Stable nontender. Skin: Intact, warm, dry. No lesions or rashes noted. Hematologic: No petechiae or purpra. Mucosa appropriate color and normal nail bed color and refill. Extremities: Atraumatic, moves all extremities per self without difficulty or deficits, negative for cords or calf pain. Neurovascular unremarkable. Neuro: Awake, alert, oriented. Cranial nerves II through XII unremarkable. Cerebellum unremarkable. Motor and sensory unremarkable throughout. Exam nonfocal. Psychiatric: Mood and affect are appropriate. Normal thought process. Answering questions appropriately. Notes: Patient's lab work is unremarkable. Her CT shows increased stool in the colon. Fluid-filled bowel which does not appear to be obstructive but radiology states could be related to gastroenteritis and to correlate with patient's symptoms. I did talk with the patient about today's findings, she states she is surprised as her symptoms feel similar to her previous obstructions. Her pain has returned after the morphine. I did call Dr. Mendez, the hospitalist who is agreeable to keeping her for observation. Patient does have a complex GI history, will keep her n.p.o. Patient is refusing any form of rectal suppository, stating that this causes her increased abdominal pain/cramping. Diagnostics: CBC, CMP, Lipase, UA, Lactic, CT abd/pelvis Therapeutics: LR @ 125mls/hr, Morphine, Zofran Impression: Constipation Intractable abdominal pain Plan: Observation admission to Med/Surg Definitive disposition and diagnosis as appropriate pending reevaluation and review of above. Duration: Day(s): Location: Reports: Abdomen abdomen Pain Score (Numeric/FACES): 8 - Related Data Allergies Allergy/AdvReac Type Severity Reaction Status Date / Time No Known Allergies Allergy Verified 05/08/20 17:45 Home Meds: Home Meds ALPRAZolam [Xanax] 2 mg PO TID PRN 05/29/18 [History] Albuterol/Ipratropium [Combivent Respimat] 1 puff IH QID PRN 05/29/18 [History] busPIRone [Buspar] 15 mg PO BID 11/04/18 [History] Ondansetron [Zofran ODT] 4 mg PO Q6H PRN 08/04/19 [History] Rosuvastatin [Crestor] 5 mg PO BEDTIME 08/04/19 [History] Ipratropium/Albuterol Sulfate [Iprat-Albut 0.5-3(2.5) MG/3 ML] 3 ml NEB TID PRN 02/09/20 [History] Budesonide/Formoterol Fumarate [Symbicort 160-4.5 Mcg Inhaler] 6 gm IH DAILY 02/20/20 [History] polyethylene glycoL 3350 [MiraLAX] 17 gm PO DAILY 02/20/20 [History] Docusate Sodium [Colace] 100 mg PO BID cap 02/22/20 [Rx] Fluticasone Propionate [Flonase] 1 spr NASBOTH DAILY bottle 02/22/20 [Rx] Gabapentin [Neurontin] 300 mg PO TID 05/08/20 [History] Past Medical History - Past Health History Medical/Surgical History: Denies Medical/Surgical History HEENT History: Reports: None Cardiovascular History: Reports: Heart Murmur 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 Respiratory History: Reports: COPD Other Respiratory History: emphsyema Gastrointestinal History: Reports: Bowel Obstruction, Diverticulosis, Other (See Below) Other Gastrointestinal History: Bowel obstruction 2010, 2018, perforated sigmoid diverticulitis status post colostomy (2019): Status post colostomy takedown (September 2019), status post appendectomy Genitourinary History: Reports: None 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 RECEIVABLE COLLECTOR History: Reports: Other ACCOUNTS RECEIVABLE COLLECTOR History: 4X C-sections Musculoskeletal History: Reports: Arthritis Neurological History: Reports: None Psychiatric History: Reports: Anxiety, Depression, Panic Attack Endocrine/Metabolic History: Reports: None Hematologic History: Reports: Blood Transfusion(s) Immunologic History: Reports: None Oncologic (Cancer) History: Reports: None Dermatologic History: Reports: None - Infectious Disease History Infectious Disease History: Reports: Chicken Pox, Measles, Mumps - Past Surgical History Head Surgeries/Procedures: Reports: None HEENT Surgical History: Reports: Tonsillectomy Cardiovascular Surgical History: Reports: Cardiac Ablation Respiratory Surgical History: Reports: None GI Surgical History: Reports: Appendectomy, Colonoscopy, Colostomy, Other (See Below) Other GI Surgeries/Procedures: Colostomy: reversed in [place] Female Surgical History: Reports: Section, Tubal Ligation Endocrine Surgical History: Reports: None Neurological Surgical History: Reports: None Musculoskeletal Surgical History: Reports: None Oncologic Surgical History: Reports: None Dermatological Surgical History: Reports: None Social & Family History - Family History Family Medical History: Noncontributory - Tobacco Use Smoking Status *Q: Former Smoker Used Tobacco, but Quit: Yes Month/Year Tobacco Last Used: 2013 - Caffeine Use Caffeine Use: Reports: Coffee Other Caffeine Use: 3cups/day Caffeine Use Comment: 1/2 cup each day - Recreational Drug Use Recreational Drug Use: No ED ROS GENERAL - Review of Systems Review Of Systems: Comprehensive ROS is negative, except as noted in HPI. ED EXAM, GI/ABD - Physical Exam Exam: See Below (See dictation) Course - Vital Signs Last Recorded V/S: Last Vital Signs Temp 98.9 F 05/08/20 17:37 Pulse 96 05/08/20 17:37 Resp 18 05/08/20 17:37 BP 138/89 05/08/20 17:37 Pulse Ox 98 05/08/20 17:37 - Orders/Labs/Meds Orders: Active Orders 24 hr Category Date Time Status CULTURE URINE [RM] Stat Lab 05/08/20 19:24 Received Lactated Ringers [Ringers, Lactated] 1,000 ml Med 05/08/20 18:00 Active IV ASDIRECTED Medication Orders Lactated Ringer's (Ringers, Lactated) 1,000 mls @ 125 mls/hr IV ASDIRECTED CLARA Last Admin: 05/08/20 18:27 Dose: 125 mls/hr Documented by: RAMAN Labs: Laboratory Tests 05/08/20 05/08/20 05/08/20 Range/Units 18:24 18:24 18:24 WBC 4.87 (4.0-11.0) K/uL RBC 4.23 L (4.30-5.90) M/uL Hgb 12.6 (12.0-16.0) g/dL Hct 39.7 (36.0-46.0) % MCV 93.9 (80.0-98.0) fL MCH 29.8 (27.0-32.0) pg MCHC 31.7 (31.0-37.0) g/dL RDW Std Deviation 46.1 (28.0-62.0) fl RDW Coeff of Shaq 13 (11.0-15.0) % Plt Count 161 (150-400) K/uL MPV 10.00 (7.40-12.00) fL Neut % (Auto) 56.4 (48.0-80.0) % Lymph % (Auto) 30.6 (16.0-40.0) % [place] % (Auto) 10.1 (0.0-15.0) % Eos % (Auto) 2.3 (0.0-7.0) % Baso % (Auto) 0.6 (0.0-1.5) % Neut # (Auto) 2.8 (1.4-5.7) K/uL Lymph # (Auto) 1.5 (0.6-2.4) K/uL [place] # (Auto) 0.5 (0.0-0.8) K/uL Eos # (Auto) 0.1 (0.0-0.7) K/uL Baso # (Auto) 0.0 (0.0-0.1) K/uL Nucleated RBC % 0.0 /100WBC Nucleated RBCs # 0 K/uL Lactate 1.0 (0.20-2.00) mmol/L Sodium 139 (136-145) mmol/L Potassium 4.1 (3.5-5.1) mmol/L Chloride 103 (98-107) mmol/L Carbon Dioxide 30.7 (21.0-32.0) mmol/L BUN 13 (7.0-18.0) mg/dL Creatinine 0.8 (0.6-1.0) mg/dL Est Cr Clr Drug Dosing 67.16 mL/min Estimated GFR (MDRD) > 60.0 ml/min Glucose 76 (74-106) mg/dL Calcium 8.8 (8.5-10.1) mg/dL Total Bilirubin 1.0 (0.2-1.0) mg/dL AST 30 (15-37) IU/L ALT 37 (14-63) IU/L Alkaline Phosphatase 71 (46-116) U/L Total Protein 7.5 (6.4-8.2) g/dL Albumin 4.2 (3.4-5.0) g/dL Globulin 3.3 (2.6-4.0) g/dL Albumin/Globulin Ratio 1.3 (0.9-1.6) Lipase 47 L (73-393) U/L Urine Color Urine Appearance Urine pH (5.0-8.0) Ur Specific [place] (1.001-1.035) Urine Protein (NEGATIVE) mg/dL Urine Glucose (UA) (NEGATIVE) mg/dL Urine Ketones (NEGATIVE) mg/dL Urine Occult Blood (NEGATIVE) Urine Nitrite (NEGATIVE) Urine Bilirubin (NEGATIVE) Urine Urobilinogen (<2.0) EU/dL Ur Leukocyte Esterase (NEGATIVE) Urine RBC (0-2/HPF) Urine WBC (0-5/HPF) Ur Epithelial Cells (NONE-FEW) Urine Bacteria (NEGATIVE) 05/08/20 Range/Units 19:24 WBC (4.0-11.0) K/uL RBC (4.30-5.90) M/uL Hgb (12.0-16.0) g/dL Hct (36.0-46.0) % MCV (80.0-98.0) fL MCH (27.0-32.0) pg MCHC (31.0-37.0) g/dL RDW Std Deviation (28.0-62.0) fl RDW Coeff of Shaq (11.0-15.0) % Plt Count (150-400) K/uL MPV (7.40-12.00) fL Neut % (Auto) (48.0-80.0) % Lymph % (Auto) (16.0-40.0) % [place] % (Auto) (0.0-15.0) % Eos % (Auto) (0.0-7.0) % Baso % (Auto) (0.0-1.5) % Neut # (Auto) (1.4-5.7) K/uL Lymph # (Auto) (0.6-2.4) K/uL [place] # (Auto) (0.0-0.8) K/uL Eos # (Auto) (0.0-0.7) K/uL Baso # (Auto) (0.0-0.1) K/uL Nucleated RBC % /100WBC Nucleated RBCs # K/uL Lactate (0.20-2.00) mmol/L Sodium (136-145) mmol/L Potassium (3.5-5.1) mmol/L Chloride (98-107) mmol/L Carbon Dioxide (21.0-32.0) mmol/L BUN (7.0-18.0) mg/dL Creatinine (0.6-1.0) mg/dL Est Cr Clr Drug Dosing mL/min Estimated GFR (MDRD) ml/min Glucose (74-106) mg/dL Calcium (8.5-10.1) mg/dL Total Bilirubin (0.2-1.0) mg/dL AST (15-37) IU/L ALT (14-63) IU/L Alkaline Phosphatase (46-116) U/L Total Protein (6.4-8.2) g/dL Albumin (3.4-5.0) g/dL Globulin (2.6-4.0) g/dL Albumin/Globulin Ratio (0.9-1.6) Lipase (73-393) U/L Urine Color YELLOW Urine Appearance CLEAR Urine pH 8.0 (5.0-8.0) Ur Specific [place] 1.015 (1.001-1.035) Urine Protein NEGATIVE (NEGATIVE) mg/dL Urine Glucose (UA) NEGATIVE (NEGATIVE) mg/dL Urine Ketones NEGATIVE (NEGATIVE) mg/dL Urine Occult Blood NEGATIVE (NEGATIVE) Urine Nitrite NEGATIVE (NEGATIVE) Urine Bilirubin NEGATIVE (NEGATIVE) Urine Urobilinogen 0.2 (<2.0) EU/dL Ur Leukocyte Esterase SMALL H (NEGATIVE) Urine RBC 0-1 (0-2/HPF) Urine WBC 1-2 (0-5/HPF) Ur Epithelial Cells RARE (NONE-FEW) Urine Bacteria RARE (NEGATIVE) Meds: Medications Generic Name Dose Route Start Last Admin Trade Name Freq PRN Reason Stop Dose Admin Lactated Ringer's 1,000 mls @ 125 mls/hr 05/08/20 18:00 05/08/20 18:27 Ringers, Lactated IV 125 mls/hr ASDIRECTED CLARA Administration Discontinued Medications Generic Name Dose Route Start Last Admin Trade Name Freq PRN Reason Stop Dose Admin Bisacodyl 10 mg 05/08/20 19:41 Dulcolax RECTAL 05/08/20 19:42 ONETIME ONE Iopamidol 80 ml 05/08/20 19:09 05/08/20 19:10 Isovue Multipack-370 (76%) IVPUSH 05/08/20 19:10 80 ml ONETIME STA Administration Morphine Sulfate 2 mg 05/08/20 17:53 05/08/20 18:28 Morphine IVPUSH 05/08/20 17:54 2 mg ONETIME ONE Administration Morphine Sulfate 2 mg 05/08/20 19:42 05/08/20 20:03 Morphine IVPUSH 05/08/20 19:43 2 mg ONETIME ONE Administration Ondansetron HCl 4 mg 05/08/20 17:53 05/08/20 18:27 Zofran IVPUSH 05/08/20 17:54 4 mg ONETIME ONE Administration Departure - Departure Time of Disposition: 20:11 Disposition: Refer to Observation Clinical Impression: Intractable abdominal pain Constipation Qualifiers: Constipation type: unspecified constipation type Qualified Code(s): K59.00 - Constipation, unspecified - Discharge Information Sepsis Event Note (ED) - Evaluation Sepsis Screening Result: No Definite Risk - Focused Exam Vital Signs: Vital Signs Temp Pulse Resp BP Pulse Ox 05/08/20 17:37 98.9 F 96 18 138/89 98 - My Orders Last 24 Hours: My Active Orders 05/08/20 18:00 Lactated Ringers [Ringers, Lactated] 1,000 ml IV ASDIRECTED 05/08/20 19:24 CULTURE URINE [RM] Stat - Assessment/Plan Last 24 Hours: My Active Orders 05/08/20 18:00 Lactated Ringers [Ringers, Lactated] 1,000 ml IV ASDIRECTED 05/08/20 19:24 CULTURE URINE [RM] Stat
[2020-05-08] MEDS ORDERED: Ondansetron 4 MG/2 ML SDV IVPUSH ONE (17:53)
[2020-05-08] MEDS ORDERED: Morphine 2 MG/ML SYRINGE IVPUSH ONE ×2 (17:53→19:42)
[2020-05-08] MEDS ORDERED: Lactated Ringers 1,000 ML IV SCH ×2 (18:00→20:30)
[2020-05-08 18:52] LABS: BLOOD UREA NITROGEN,BUN 13 mg/dL (7.0-18.0); CARBON DIOXIDE,CO2 30.7 mmol/L (21.0-32.0); CHLORIDE,CL 103 mmol/L (98-107); GLUCOSE RANDOM 76 mg/dL (74-106); LIPASE 47 U/L (73-393); POTASSIUM,K 4.1 mmol/L (3.5-5.1); SODIUM,NA 139 mmol/L (136-145)
[2020-05-08] MEDS ORDERED: Iopamidol 755 MG/ML 500 ML Multipack Bottle IVPUSH STA (19:09)
--- NOTE | 2020-05-08 19:30 | CT ---
CT abdomen and pelvis Technique: Multiple axial sections were obtained from above the dome of the diaphragm inferiorly through the pubic symphysis. Intravenous contrast was utilized. No oral contrast has been given. Findings: Partial fatty eventration of the right hemidiaphragm is noted. Visualized lung bases show emphysematous change and slight scarring. Nothing acute is appreciated. Liver contains no focal parenchymal abnormality. Slight intrahepatic biliary duct dilatation is seen which is stable. Spleen appears within normal limits. Adrenal glands show no nodule. Kidneys show symmetric contrast enhancement. Small cyst is noted within the mid left kidney measuring 1.3 cm. No additional abnormality is seen within the kidneys. Increased stool is seen throughout the colon. Previous bowel surgery is noted. Fluid-filled small bowel is also noted. Appendix not definitely visualized. Bone window settings were reviewed which shows scattered degenerative change within the spine. Previous limbus vertebra is incidentally noted within the anterior and superior endplate of L3. No free fluid or inflammatory change is seen. Impression: 1. Increased stool within the colon. 2. Fluid-filled bowel which does not appear to be obstructive but please correlate if patient has any symptoms to indicate gastroenteritis. 3. Other findings as described above. Nothing acute is appreciated on CT study of the abdomen and pelvis. Diagnostic code #3 This report was dictated in MDT
[2020-05-08] MEDS ORDERED: Bisacodyl 10 MG Supp RECTAL ONE (19:41)
[2020-05-08] MEDS ORDERED: Ondansetron 4 MG/2 ML SDV IVPUSH PRN (20:30)
[2020-05-08] MEDS ORDERED: Magnesium Hydroxide 400 MG/5 ML Susp 30 ML Cup PO ONE (20:40)
[2020-05-08] MEDS ORDERED: Polyethylene Glycol 3350 Powder 17 GM Packet PO PRN (20:58)
--- NOTE | 2020-05-08 21:01 | PCM.HP.2 ---
H&P History of Present Illness - General Date of Service: 05/08/20 Admit Problem/Dx: Admission Diagnosis/Problem Admission Diagnosis/Problem Constipation - History of Present Illness Initial Comments - Free Text/Narative: Patient is a 59-year-old female with a complicated past surgical history of perforated sigmoid diverticulitis requiring colon ostomy in 2008, complicated by parastomal hernia, status post revision in September 2019, multiple small bowel obstructions, hyperlipidemia, anxiety, depression, COPD and chronic abdominal pain. Patient was last admitted to the hospital on 02/19/2020 for management of an ileus. She states over the past few months she has been doing well but since last 3-4 days she has been experiencing left lower abdominal pain.States she passed a small amount of stool yesterday ans has been passing gases, she denied any N/V/D but hasn't been eating as much for last few days due to fear of making her pain worse Patient denies any fever, headache, change in vision, syncope or near syncope. Denies any chest pain, back pain, shortness of breath or cough. Denies any dysuria, or noting any blood in urine or stool. In the ER patient's lab work was grossly unremarkable. Her CT shows increased stool in the colon. Fluid-filled bowel which does not appear to be obstructive but radiology states could be related to gastroenteritis and to correlate with patient's symptoms. She was also found to be COVID positive but no respiratory symptoms. Patient was admitted for further management. abdomen Pain Score (Numeric/FACES): 8 - Related Data Allergies/Adverse Reactions: Allergies Allergy/AdvReac Type Severity Reaction Status Date / Time No Known Allergies Allergy Verified 05/08/20 22:01 Home Medications: Home Meds ALPRAZolam [Xanax] 2 mg PO TID 05/29/18 [History] Albuterol/Ipratropium [Combivent Respimat] 1 puff IH QID PRN 05/29/18 [History] busPIRone [Buspar] 15 mg PO BID 11/04/18 [History] Ondansetron [Zofran ODT] 4 mg PO Q6H PRN 08/04/19 [History] Rosuvastatin [Crestor] 5 mg PO BEDTIME 08/04/19 [History] Ipratropium/Albuterol Sulfate [Iprat-Albut 0.5-3(2.5) MG/3 ML] 3 ml NEB Q6HR 02/09/20 [History] Budesonide/Formoterol Fumarate [Symbicort 160-4.5 Mcg Inhaler] 6 gm NEB DAILY 02/20/20 [History] polyethylene glycoL 3350 [MiraLAX] 17 gm PO DAILY 02/20/20 [History] Docusate Sodium [Colace] 100 mg PO BID cap 02/22/20 [Rx] Fluticasone Propionate [Flonase] 1 spr NASBOTH DAILY bottle 02/22/20 [Rx] Gabapentin [Neurontin] 300 mg PO TID 05/08/20 [History] Past Medical History - Past Health History Medical/Surgical History: Denies Medical/Surgical History HEENT History: Reports: None Cardiovascular History: Reports: Heart Murmur 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 Respiratory History: Reports: COPD Other Respiratory History: emphsyema Gastrointestinal History: Reports: Bowel Obstruction, Diverticulosis, Other (See Below) Other Gastrointestinal History: Bowel obstruction 2018, perforated sigmoid diverticulitis status post colostomy (2018): Status post colostomy takedown (September 2019), status post appendectomy Genitourinary History: Reports: None [employer] History: Reports: Other OB/BYN History: 4X C-sections Musculoskeletal History: Reports: Arthritis Neurological History: Reports: None Psychiatric History: Reports: Anxiety, Depression, Panic Attack Endocrine/Metabolic History: Reports: None Hematologic History: Reports: Blood Transfusion(s) Immunologic History: Reports: None Oncologic (Cancer) History: Reports: None Dermatologic History: Reports: None - Infectious Disease History Infectious Disease History: Reports: Chicken Pox, Measles, Mumps - Past Surgical History Head Surgeries/Procedures: Reports: None HEENT Surgical History: Reports: Tonsillectomy Cardiovascular Surgical History: Reports: Cardiac Ablation Respiratory Surgical History: Reports: None GI Surgical History: Reports: Appendectomy, Colonoscopy, Colostomy, Other (See Below) Other GI Surgeries/Procedures: Colostomy: reversed in Sep Female Surgical History: Reports: Section, Tubal Ligation Endocrine Surgical History: Reports: None Neurological Surgical History: Reports: None Musculoskeletal Surgical History: Reports: None Oncologic Surgical History: Reports: None Dermatological Surgical History: Reports: None Social & Family History - Family History Family Medical History: Noncontributory - Tobacco Use Smoking Status *Q: Former Smoker Used Tobacco, but Quit: Yes Month/Year Tobacco Last Used: 2013 - Caffeine Use Caffeine Use: Reports: Coffee Other Caffeine Use: 3cups/day Caffeine Use Comment: 1/2 cup each day - Recreational Drug Use Recreational Drug Use: No H&P Review of Systems - Review of Systems: Review Of Systems: See Below General: Reports: Malaise, Weakness. Denies: Fever, Chills HEENT: Denies: Dysphasia, Ear Pain Pulmonary: Denies: Shortness of Breath, Wheezing Cardiovascular: Denies: Chest Pain, Palpitations, Dyspnea on Exertion, Orthopnea, Lightheadedness, Syncope Gastrointestinal: Reports: Abdominal Pain, Anorexia, Constipation, Decreased A ppetite, Flatus. Denies: Black Stool, Bloody Stool, Diarrhea, Difficulty Swallowing, Distension, Hematemesis, Hematochezia, Melena, Nausea, Stool Incontinence, Vomiting Genitourinary: Denies: Dysuria, Frequency, Burning Musculoskeletal: Denies: Neck Pain, Shoulder Pain, Arm Pain Skin: Denies: Cyanosis, Jaundice, Mottled Neurological: Denies: Confusion, Dizziness Exam - Exam Exam: See Below - Vital Signs Vital Signs: Last Vital Signs Temp 37.2 C 05/08/20 17:37 Pulse 96 05/08/20 17:37 Resp 18 05/08/20 17:37 BP 138/89 05/08/20 17:37 Pulse Ox 98 05/08/20 17:37 Weight: 57.606 kg - Exam Quality Assessment: Supplemental Oxygen General: Alert, Oriented Neck: Supple Lungs: Clear to Auscultation, Normal Respiratory Effort Cardiovascular: Regular Rate, Regular Rhythm, Normal S1, Normal S2 GI/Abdominal Exam: Soft, Guarding, Rigid, Tender. No: Normal Bowel Sounds, Non-Tender, No Distention, Hepatomegaly, Splenomegaly - Patient Data Lab Results Last 24 hrs: Laboratory Results - last 24 hr 05/08/20 05/08/20 05/08/20 Range/Units 18:24 18:24 18:24 WBC 4.87 (4.0-11.0) K/uL RBC 4.23 L (4.30-5.90) M/uL Hgb 12.6 (12.0-16.0) g/dL Hct 39.7 (36.0-46.0) % MCV 93.9 (80.0-98.0) fL MCH 29.8 (27.0-32.0) pg MCHC 31.7 (31.0-37.0) g/dL RDW Std Deviation 46.1 (28.0-62.0) fl RDW Coeff of Shaq 13 (11.0-15.0) % Plt Count 161 (150-400) K/uL MPV 10.00 (7.40-12.00) fL Neut % (Auto) 56.4 (48.0-80.0) % Lymph % (Auto) 30.6 (16.0-40.0) % Rains % (Auto) 10.1 (0.0-15.0) % Eos % (Auto) 2.3 (0.0-7.0) % Baso % (Auto) 0.6 (0.0-1.5) % Neut # (Auto) 2.8 (1.4-5.7) K/uL Lymph # (Auto) 1.5 (0.6-2.4) K/uL Rains # (Auto) 0.5 (0.0-0.8) K/uL Eos # (Auto) 0.1 (0.0-0.7) K/uL Baso # (Auto) 0.0 (0.0-0.1) K/uL Nucleated RBC % 0.0 /100WBC Nucleated RBCs # 0 K/uL Lactate 1.0 (0.20-2.00) mmol/L Sodium 139 (136-145) mmol/L Potassium 4.1 (3.5-5.1) mmol/L Chloride 103 (98-107) mmol/L Carbon Dioxide 30.7 (21.0-32.0) mmol/L BUN 13 (7.0-18.0) mg/dL Creatinine 0.8 (0.6-1.0) mg/dL Est Cr Clr Drug Dosing 67.16 mL/min Estimated GFR (MDRD) > 60.0 ml/min Glucose 76 (74-106) mg/dL Calcium 8.8 (8.5-10.1) mg/dL Total Bilirubin 1.0 (0.2-1.0) mg/dL AST 30 (15-37) IU/L ALT 37 (14-63) IU/L Alkaline Phosphatase 71 (46-116) U/L Total Protein 7.5 (6.4-8.2) g/dL Albumin 4.2 (3.4-5.0) g/dL Globulin 3.3 (2.6-4.0) g/dL Albumin/Globulin Ratio 1.3 (0.9-1.6) Lipase 47 L (73-393) U/L Urine Color Urine Appearance Urine pH (5.0-8.0) Ur Specific Billings (1.001-1.035) Urine Protein (NEGATIVE) mg/dL Urine Glucose (UA) (NEGATIVE) mg/dL Urine Ketones (NEGATIVE) mg/dL Urine Occult Blood (NEGATIVE) Urine Nitrite (NEGATIVE) Urine Bilirubin (NEGATIVE) Urine Urobilinogen (<2.0) EU/dL Ur Leukocyte Esterase (NEGATIVE) Urine RBC (0-2/HPF) Urine WBC (0-5/HPF) Ur Epithelial Cells (NONE-FEW) Urine Bacteria (NEGATIVE) COVID-19 (VICKY) (NEGATIVE) 05/08/20 05/08/20 Range/Units 19:24 20:17 WBC (4.0-11.0) K/uL RBC (4.30-5.90) M/uL Hgb (12.0-16.0) g/dL Hct (36.0-46.0) % MCV (80.0-98.0) fL MCH (27.0-32.0) pg MCHC (31.0-37.0) g/dL RDW Std Deviation (28.0-62.0) fl RDW Coeff of Shaq (11.0-15.0) % Plt Count (150-400) K/uL MPV (7.40-12.00) fL Neut % (Auto) (48.0-80.0) % Lymph % (Auto) (16.0-40.0) % Rains % (Auto) (0.0-15.0) % Eos % (Auto) (0.0-7.0) % Baso % (Auto) (0.0-1.5) % Neut # (Auto) (1.4-5.7) K/uL Lymph # (Auto) (0.6-2.4) K/uL Rains # (Auto) (0.0-0.8) K/uL Eos # (Auto) (0.0-0.7) K/uL Baso # (Auto) (0.0-0.1) K/uL Nucleated RBC % /100WBC Nucleated RBCs # K/uL Lactate (0.20-2.00) mmol/L Sodium (136-145) mmol/L Potassium (3.5-5.1) mmol/L Chloride (98-107) mmol/L Carbon Dioxide (21.0-32.0) mmol/L BUN (7.0-18.0) mg/dL Creatinine (0.6-1.0) mg/dL Est Cr Clr Drug Dosing mL/min Estimated GFR (MDRD) ml/min Glucose (74-106) mg/dL Calcium (8.5-10.1) mg/dL Total Bilirubin (0.2-1.0) mg/dL AST (15-37) IU/L ALT (14-63) IU/L Alkaline Phosphatase (46-116) U/L Total Protein (6.4-8.2) g/dL Albumin (3.4-5.0) g/dL Globulin (2.6-4.0) g/dL Albumin/Globulin Ratio (0.9-1.6) Lipase (73-393) U/L Urine Color YELLOW Urine Appearance CLEAR Urine pH 8.0 (5.0-8.0) Ur Specific Billings 1.015 (1.001-1.035) Urine Protein NEGATIVE (NEGATIVE) mg/dL Urine Glucose (UA) NEGATIVE (NEGATIVE) mg/dL Urine Ketones NEGATIVE (NEGATIVE) mg/dL Urine Occult Blood NEGATIVE (NEGATIVE) Urine Nitrite NEGATIVE (NEGATIVE) Urine Bilirubin NEGATIVE (NEGATIVE) Urine Urobilinogen 0.2 (<2.0) EU/dL Ur Leukocyte Esterase SMALL H (NEGATIVE) Urine RBC 0-1 (0-2/HPF) Urine WBC 1-2 (0-5/HPF) Ur Epithelial Cells RARE (NONE-FEW) Urine Bacteria RARE (NEGATIVE) COVID-19 (VICKY) POSITIVE H (NEGATIVE) Result Diagrams: 05/08/20 18:24 05/08/20 18:24 Sepsis Event Note - Evaluation Sepsis Screening Result: No Definite Risk - Focused Exam Vital Signs: Vital Signs Temp Pulse Resp BP Pulse Ox 08/17/20 17:37 37.2 C 96 18 138/89 98 - Problem List (1) Constipation SNOMED Code(s): 29032016 ICD Code: K59.00 - CONSTIPATION, UNSPECIFIED Status: Acute Current Visit: Yes Qualifiers: Constipation type: unspecified constipation type Qualified Code(s): K59.00 - Constipation, unspecified (2) Intractable abdominal pain SNOMED Code(s): 40340904 ICD Code: R10.9 - UNSPECIFIED ABDOMINAL PAIN Status: Acute Current Visit: Yes (3) COPD (chronic obstructive pulmonary disease) SNOMED Code(s): 53446153 ICD Code: J44.9 - CHRONIC OBSTRUCTIVE PULMONARY DISEASE, UNSPECIFIED Status: Chronic Priority: Medium Current Visit: No Qualifiers: COPD type: unspecified COPD Qualified Code(s): J44.9 - Chronic obstructive pulmonary disease, unspecified Problem List Initiated/Reviewed/Updated: Yes Orders Last 24hrs: Active Orders 24 hr Category Date Time Status Patient Status [ADT] Stat ADT 05/08/20 19:41 Active Antiembolic Devices [RC] PER UNIT ROUTINE Care 05/08/20 20:29 Active Oxygen Therapy Adult [Oxygen Therapy] [RC] ASDIRECTED Care 05/08/20 20:28 Active Vital Signs [RC] Q4H Care 05/08/20 20:26 Active NPO Now [Nothing per Oral Now Diet] [DIET] Diet 05/09/20 Breakfast Active CULTURE URINE [RM] Stat Lab 05/08/20 19:24 Received HYDROmorphone [Dilaudid] Med 05/08/20 20:56 Active 0.5 mg IVPUSH Q4H PRN Lactated Ringers [Ringers, Lactated] 1,000 ml Med 05/08/20 20:30 Active IV ASDIRECTED Ondansetron [Zofran] Med 05/08/20 20:30 Active 4 mg IVPUSH Q4H PRN Pantoprazole [ProTONIX IV] 40 mg Med 05/09/20 09:00 Active Sodium Chloride 0.9% [Normal Saline] 10 ml IV DAILY polyethylene glycoL 3350 [MiraLAX] Med 05/08/20 20:58 Active 17 gm PO Q8H PRN SCD [Sequential Compression Device] [OM.PC] Routine Oth 05/08/20 20:29 Ordered Medication Orders Hydromorphone HCl (Dilaudid) 0.5 mg IVPUSH Q4H PRN PRN Reason: Abdominal Pain Lactated Ringer's (Ringers, Lactated) 1,000 mls @ 125 mls/hr IV ASDIRECTED CLARA Pantoprazole Sodium 40 mg/ (Sodium Chloride) 10 mls @ 300 mls/hr IV DAILY CLARA Ondansetron HCl (Zofran) 4 mg IVPUSH Q4H PRN PRN Reason: Nausea/Vomiting Polyethylene Glycol (Miralax) 17 gm PO Q8H PRN PRN Reason: Constipation Assessment/Plan Comment:: 59 y/o F admitted for Abdominal pain, constipation CT scan noted NPO for now for bowel rest IV fluid LR @125cc/hr IV PPI daily IV Zofran for N/V IV Dilaudid for pain control Initiate bowel regimen SCD for DVT ppx Will monitor respiratory symptoms so far asymptomatic, check inflammatory makers
[2020-05-08] MEDS: Lactated Ringers 1,000 ML IV SCH (22:15)
[2020-05-08] MEDS: HYDROmorphone 2 MG/ML Syringe IVPUSH PRN (23:45)
[2020-05-09] MEDS ORDERED: Magnesium Hydroxide 400 MG/5 ML Susp 30 ML Cup ONE (00:02)
[2020-05-09] MEDS: ALPRAZolam 0.5 MG Tab PO SCH ×5 (00:10→22:00)
[2020-05-09] MEDS: HYDROmorphone 2 MG/ML Syringe IVPUSH PRN (04:00)
[2020-05-09] MEDS ORDERED: ALPRAZolam 0.5 MG Tab PO SCH (06:00)
[2020-05-09] MEDS: Albuterol/Ipratropium 4 GM Inhalation Spray INH PRN ×3 (06:06→18:25)
[2020-05-09] MEDS: Lactated Ringers 1,000 ML IV SCH (06:09)
[2020-05-09 06:18] LABS: BLOOD UREA NITROGEN,BUN 11 mg/dL (7.0-18.0); CARBON DIOXIDE,CO2 30.8 mmol/L (21.0-32.0); CHLORIDE,CL 103 mmol/L (98-107); GLUCOSE RANDOM 77 mg/dL (74-106); POTASSIUM,K 3.8 mmol/L (3.5-5.1); SODIUM,NA 139 mmol/L (136-145)
--- NOTE | 2020-05-09 08:29 | PCM.PN ---
<Ochoa Shipley M - Last Filed: 05/09/20 10:05> - General Info Date of Service: 05/09/20 Subjective Update: Reports passing gas throughout night and had very small, hard bowel movement this AM. Reports abdominal pain about the same as yesterday. Denies any sore throat, cough, fevers, SOB or chest pain. - Patient Data Vitals - Most Recent: Last Vital Signs Temp 37.1 C 05/09/20 03:58 Pulse 82 05/09/20 03:58 Resp 18 05/09/20 03:58 BP 105/67 05/09/20 03:58 Pulse Ox 93 L 05/09/20 03:58 Weight - Most Recent: 57.606 kg I&O - Last 24 Hours: Intake & Output 05/08/20 05/09/20 05/09/20 22:59 06:59 14:59 Intake Total 662 Output Total 900 Balance -238 Lab Results Last 24 Hours: Laboratory Results - last 24 hr 05/08/20 05/08/20 05/08/20 Range/Units 18:24 18:24 18:24 WBC 4.87 (4.0-11.0) K/uL RBC 4.23 L (4.30-5.90) M/uL Hgb 12.6 (12.0-16.0) g/dL Hct 39.7 (36.0-46.0) % MCV 93.9 (80.0-98.0) fL MCH 29.8 (27.0-32.0) pg MCHC 31.7 (31.0-37.0) g/dL RDW Std Deviation 46.1 (28.0-62.0) fl RDW Coeff of Shaq 13 (11.0-15.0) % Plt Count 161 (150-400) K/uL MPV 10.00 (7.40-12.00) fL Neut % (Auto) 56.4 (48.0-80.0) % Lymph % (Auto) 30.6 (16.0-40.0) % Lewis % (Auto) 10.1 (0.0-15.0) % Eos % (Auto) 2.3 (0.0-7.0) % Baso % (Auto) 0.6 (0.0-1.5) % Neut # (Auto) 2.8 (1.4-5.7) K/uL Lymph # (Auto) 1.5 (0.6-2.4) K/uL Lewis # (Auto) 0.5 (0.0-0.8) K/uL Eos # (Auto) 0.1 (0.0-0.7) K/uL Baso # (Auto) 0.0 (0.0-0.1) K/uL Nucleated RBC % 0.0 /100WBC Nucleated RBCs # 0 K/uL D-Dimer, Quantitative (0.0-0.50) mg/L FEU Lactate 1.0 (0.20-2.00) mmol/L Sodium 139 (136-145) mmol/L Potassium 4.1 (3.5-5.1) mmol/L Chloride 103 (98-107) mmol/L Carbon Dioxide 30.7 (21.0-32.0) mmol/L BUN 13 (7.0-18.0) mg/dL Creatinine 0.8 (0.6-1.0) mg/dL Est Cr Clr Drug Dosing 67.16 mL/min Estimated GFR (MDRD) > 60.0 ml/min Glucose 76 (74-106) mg/dL Calcium 8.8 (8.5-10.1) mg/dL Phosphorus (2.6-4.7) mg/dL Magnesium (1.8-2.4) mg/dL Ferritin (8-252) ng/mL Total Bilirubin 1.0 (0.2-1.0) mg/dL AST 30 (15-37) IU/L ALT 37 (14-63) IU/L Alkaline Phosphatase 71 (46-116) U/L Lactate Dehydrogenase (81-234) U/L Creatine Kinase (26-308) U/L C-Reactive Protein (0.00-0.90) mg/dL Total Protein 7.5 (6.4-8.2) g/dL Albumin 4.2 (3.4-5.0) g/dL Globulin 3.3 (2.6-4.0) g/dL Albumin/Globulin Ratio 1.3 (0.9-1.6) Lipase 47 L (73-393) U/L Urine Color Urine Appearance Urine pH (5.0-8.0) Ur Specific Douglas (1.001-1.035) Urine Protein (NEGATIVE) mg/dL Urine Glucose (UA) (NEGATIVE) mg/dL Urine Ketones (NEGATIVE) mg/dL Urine Occult Blood (NEGATIVE) Urine Nitrite (NEGATIVE) Urine Bilirubin (NEGATIVE) Urine Urobilinogen (<2.0) EU/dL Ur Leukocyte Esterase (NEGATIVE) Urine RBC (0-2/HPF) Urine WBC (0-5/HPF) Ur Epithelial Cells (NONE-FEW) Urine Bacteria (NEGATIVE) COVID-19 (VICKY) (NEGATIVE) 05/08/20 05/08/20 05/08/20 Range/Units 18:24 18:24 18:24 WBC (4.0-11.0) K/uL RBC (4.30-5.90) M/uL Hgb (12.0-16.0) g/dL Hct (36.0-46.0) % MCV (80.0-98.0) fL MCH (27.0-32.0) pg MCHC (31.0-37.0) g/dL RDW Std Deviation (28.0-62.0) fl RDW Coeff of Shaq (11.0-15.0) % Plt Count (150-400) K/uL MPV (7.40-12.00) fL Neut % (Auto) (48.0-80.0) % Lymph % (Auto) (16.0-40.0) % Lewis % (Auto) (0.0-15.0) % Eos % (Auto) (0.0-7.0) % Baso % (Auto) (0.0-1.5) % Neut # (Auto) (1.4-5.7) K/uL Lymph # (Auto) (0.6-2.4) K/uL Lewis # (Auto) (0.0-0.8) K/uL Eos # (Auto) (0.0-0.7) K/uL Baso # (Auto) (0.0-0.1) K/uL Nucleated RBC % /100WBC Nucleated RBCs # K/uL D-Dimer, Quantitative < 0.19 (0.0-0.50) mg/L FEU Lactate (0.20-2.00) mmol/L Sodium (136-145) mmol/L Potassium (3.5-5.1) mmol/L Chloride (98-107) mmol/L Carbon Dioxide (21.0-32.0) mmol/L BUN (7.0-18.0) mg/dL Creatinine (0.6-1.0) mg/dL Est Cr Clr Drug Dosing mL/min Estimated GFR (MDRD) ml/min Glucose (74-106) mg/dL Calcium (8.5-10.1) mg/dL Phosphorus (2.6-4.7) mg/dL Magnesium (1.8-2.4) mg/dL Ferritin 102 (8-252) ng/mL Total Bilirubin (0.2-1.0) mg/dL AST (15-37) IU/L ALT (14-63) IU/L Alkaline Phosphatase (46-116) U/L Lactate Dehydrogenase 194 (81-234) U/L Creatine Kinase 93 (26-308) U/L C-Reactive Protein <0.20 (0.00-0.90) mg/dL Total Protein (6.4-8.2) g/dL Albumin (3.4-5.0) g/dL Globulin (2.6-4.0) g/dL Albumin/Globulin Ratio (0.9-1.6) Lipase (73-393) U/L Urine Color Urine Appearance Urine pH (5.0-8.0) Ur Specific Douglas (1.001-1.035) Urine Protein (NEGATIVE) mg/dL Urine Glucose (UA) (NEGATIVE) mg/dL Urine Ketones (NEGATIVE) mg/dL Urine Occult Blood (NEGATIVE) Urine Nitrite (NEGATIVE) Urine Bilirubin (NEGATIVE) Urine Urobilinogen (<2.0) EU/dL Ur Leukocyte Esterase (NEGATIVE) Urine RBC (0-2/HPF) Urine WBC (0-5/HPF) Ur Epithelial Cells (NONE-FEW) Urine Bacteria (NEGATIVE) COVID-19 (VICKY) (NEGATIVE) 05/08/20 05/08/20 05/09/20 Range/Units 19:24 20:17 05:35 WBC 7.29 (4.0-11.0) K/uL RBC 4.12 L (4.30-5.90) M/uL Hgb 12.3 (12.0-16.0) g/dL Hct 38.6 (36.0-46.0) % MCV 93.7 (80.0-98.0) fL MCH 29.9 (27.0-32.0) pg MCHC 31.9 (31.0-37.0) g/dL RDW Std Deviation 45.5 (28.0-62.0) fl RDW Coeff of Shaq 13 (11.0-15.0) % Plt Count 176 (150-400) K/uL MPV 10.00 (7.40-12.00) fL Neut % (Auto) 52.7 (48.0-80.0) % Lymph % (Auto) 35.5 (16.0-40.0) % Lewis % (Auto) 9.5 (0.0-15.0) % Eos % (Auto) 1.9 (0.0-7.0) % Baso % (Auto) 0.4 (0.0-1.5) % Neut # (Auto) 3.8 (1.4-5.7) K/uL Lymph # (Auto) 2.6 H (0.6-2.4) K/uL Lewis # (Auto) 0.7 (0.0-0.8) K/uL Eos # (Auto) 0.1 (0.0-0.7) K/uL Baso # (Auto) 0.0 (0.0-0.1) K/uL Nucleated RBC % 0.0 /100WBC Nucleated RBCs # 0 K/uL D-Dimer, Quantitative (0.0-0.50) mg/L FEU Lactate (0.20-2.00) mmol/L Sodium (136-145) mmol/L Potassium (3.5-5.1) mmol/L Chloride (98-107) mmol/L Carbon Dioxide (21.0-32.0) mmol/L BUN (7.0-18.0) mg/dL Creatinine (0.6-1.0) mg/dL Est Cr Clr Drug Dosing mL/min Estimated GFR (MDRD) ml/min Glucose (74-106) mg/dL Calcium (8.5-10.1) mg/dL Phosphorus (2.6-4.7) mg/dL Magnesium (1.8-2.4) mg/dL Ferritin (8-252) ng/mL Total Bilirubin (0.2-1.0) mg/dL AST (15-37) IU/L ALT (14-63) IU/L Alkaline Phosphatase (46-116) U/L Lactate Dehydrogenase (81-234) U/L Creatine Kinase (26-308) U/L C-Reactive Protein (0.00-0.90) mg/dL Total Protein (6.4-8.2) g/dL Albumin (3.4-5.0) g/dL Globulin (2.6-4.0) g/dL Albumin/Globulin Ratio (0.9-1.6) Lipase (73-393) U/L Urine Color YELLOW Urine Appearance CLEAR Urine pH 8.0 (5.0-8.0) Ur Specific Douglas 1.015 (1.001-1.035) Urine Protein NEGATIVE (NEGATIVE) mg/dL Urine Glucose (UA) NEGATIVE (NEGATIVE) mg/dL Urine Ketones NEGATIVE (NEGATIVE) mg/dL Urine Occult Blood NEGATIVE (NEGATIVE) Urine Nitrite NEGATIVE (NEGATIVE) Urine Bilirubin NEGATIVE (NEGATIVE) Urine Urobilinogen 0.2 (<2.0) EU/dL Ur Leukocyte Esterase SMALL H (NEGATIVE) Urine RBC 0-1 (0-2/HPF) Urine WBC 1-2 (0-5/HPF) Ur Epithelial Cells RARE (NONE-FEW) Urine Bacteria RARE (NEGATIVE) COVID-19 (VICKY) POSITIVE H (NEGATIVE) 05/09/20 Range/Units 05:35 WBC (4.0-11.0) K/uL RBC (4.30-5.90) M/uL Hgb (12.0-16.0) g/dL Hct (36.0-46.0) % MCV (80.0-98.0) fL MCH (27.0-32.0) pg MCHC (31.0-37.0) g/dL RDW Std Deviation (28.0-62.0) fl RDW Coeff of Shaq (11.0-15.0) % Plt Count (150-400) K/uL MPV (7.40-12.00) fL Neut % (Auto) (48.0-80.0) % Lymph % (Auto) (16.0-40.0) % Lewis % (Auto) (0.0-15.0) % Eos % (Auto) (0.0-7.0) % Baso % (Auto) (0.0-1.5) % Neut # (Auto) (1.4-5.7) K/uL Lymph # (Auto) (0.6-2.4) K/uL Lewis # (Auto) (0.0-0.8) K/uL Eos # (Auto) (0.0-0.7) K/uL Baso # (Auto) (0.0-0.1) K/uL Nucleated RBC % /100WBC Nucleated RBCs # K/uL D-Dimer, Quantitative (0.0-0.50) mg/L FEU Lactate (0.20-2.00) mmol/L Sodium 139 (136-145) mmol/L Potassium 3.8 (3.5-5.1) mmol/L Chloride 103 (98-107) mmol/L Carbon Dioxide 30.8 (21.0-32.0) mmol/L BUN 11 (7.0-18.0) mg/dL Creatinine 0.9 (0.6-1.0) mg/dL Est Cr Clr Drug Dosing 59.69 mL/min Estimated GFR (MDRD) > 60.0 ml/min Glucose 77 (74-106) mg/dL Calcium 9.0 (8.5-10.1) mg/dL Phosphorus 3.7 (2.6-4.7) mg/dL Magnesium 2.4 (1.8-2.4) mg/dL Ferritin (8-252) ng/mL Total Bilirubin (0.2-1.0) mg/dL AST (15-37) IU/L ALT (14-63) IU/L Alkaline Phosphatase (46-116) U/L Lactate Dehydrogenase (81-234) U/L Creatine Kinase (26-308) U/L C-Reactive Protein (0.00-0.90) mg/dL Total Protein (6.4-8.2) g/dL Albumin (3.4-5.0) g/dL Globulin (2.6-4.0) g/dL Albumin/Globulin Ratio (0.9-1.6) Lipase (73-393) U/L Urine Color Urine Appearance Urine pH (5.0-8.0) Ur Specific Douglas (1.001-1.035) Urine Protein (NEGATIVE) mg/dL Urine Glucose (UA) (NEGATIVE) mg/dL Urine Ketones (NEGATIVE) mg/dL Urine Occult Blood (NEGATIVE) Urine Nitrite (NEGATIVE) Urine Bilirubin (NEGATIVE) Urine Urobilinogen (<2.0) EU/dL Ur Leukocyte Esterase (NEGATIVE) Urine RBC (0-2/HPF) Urine WBC (0-5/HPF) Ur Epithelial Cells (NONE-FEW) Urine Bacteria (NEGATIVE) COVID-19 (VICKY) (NEGATIVE) Med Orders - Current: Current Medications Albuterol/Ipratropium (Combivent Respimat) 0 gm INH QID PRN PRN Reason: Shortness of Breath Last Admin: 05/09/20 06:06 Dose: 1 puff Documented by: Alprazolam (Xanax) 2 mg PO TID [facility] Last Admin: 05/09/20 06:06 Dose: 2 mg Documented by: Buspirone HCl (Buspar) 15 mg PO BID [facility] Docusate Sodium (Colace) 100 mg PO BID [facility] Fluticasone Propionate (Flonase) 0 gm NASBOTH DAILY [facility] Hydromorphone HCl (Dilaudid) 0.5 mg IVPUSH Q4H PRN PRN Reason: Abdominal Pain Last Admin: 05/09/20 04:00 Dose: 0.5 mg Documented by: Pantoprazole Sodium 40 mg/ (Sodium Chloride) 10 mls @ 300 mls/hr IV DAILY [facility] Lactated Ringer's (Ringers, Lactated) 1,000 mls @ 125 mls/hr IV ASDIRECTED [facility] Last Admin: 05/09/20 06:09 Dose: 125 mls/hr Documented by: Ondansetron HCl (Zofran) 4 mg IVPUSH Q4H PRN PRN Reason: Nausea/Vomiting Polyethylene Glycol (Miralax) 17 gm PO Q8H PRN PRN Reason: Constipation Discontinued Medications Alprazolam (Xanax) 2 mg PO TID [facility] Bisacodyl (Dulcolax) 10 mg RECTAL ONETIME ONE Stop: 05/08/20 19:42 Last Admin: 05/08/20 20:21 Dose: Not Given Documented by: Lactated Ringer's (Ringers, Lactated) 1,000 mls @ 125 mls/hr IV ASDIRECTED [facility] Last Admin: 05/08/20 18:27 Dose: 125 mls/hr Documented by: Iopamidol (Isovue Multipack-370 (76%)) 80 ml IVPUSH ONETIME STA Stop: 05/08/20 19:10 Last Admin: 05/08/20 19:10 Dose: 80 ml Documented by: Magnesium Hydroxide (Milk Of Magnesia) 30 ml PO ONETIME ONE Stop: 05/08/20 20:41 Last Admin: 05/09/20 00:28 Dose: Not Given Documented by: Magnesium Hydroxide (Milk Of Magnesia) Confirm Administered Dose 30 ml .ROUTE .STK-MED ONE Stop: 05/09/20 00:03 Last Admin: 05/09/20 00:15 Dose: 30 ml Documented by: Morphine Sulfate (Morphine) 2 mg IVPUSH ONETIME ONE Stop: 05/08/20 17:54 Last Admin: 05/08/20 18:28 Dose: 2 mg Documented by: Morphine Sulfate (Morphine) 2 mg IVPUSH ONETIME ONE Stop: 05/08/20 19:43 Last Admin: 05/08/20 20:03 Dose: 2 mg Documented by: Ondansetron HCl (Zofran) 4 mg IVPUSH ONETIME ONE Stop: 05/08/20 17:54 Last Admin: 05/08/20 18:27 Dose: 4 mg Documented by: - Exam General: Alert, Oriented, Cooperative, No Acute Distress Lungs: Clear to Auscultation, Normal Respiratory Effort Cardiovascular: Regular Rate, Regular Rhythm GI/Abdominal Exam: Normal Bowel Sounds, Soft, No Distention, Other (epigastric and LLQ ttp). No: Guarding Extremities: Normal Inspection, No Pedal Edema Sepsis Event Note - Evaluation Sepsis Screening Result: No Definite Risk - Focused Exam Vital Signs: Vital Signs Temp Pulse Resp BP Pulse Ox 05/09/20 03:58 37.1 C 82 18 105/67 93 L 05/08/20 21:50 37.7 C 72 19 149/82 H 95 - Problem List Review Problem List Initiated/Reviewed/Updated: Yes - My Orders Last 24 Hours: My Active Orders 05/09/20 08:24 Code Status [Resuscitation Status] Routine 05/10/20 05:11 CBC WITH AUTO DIFF [HEME] AM CMP [COMPREHENSIVE METABOLIC PN,CMP] [CHEM] AM - Plan Plan:: Assessment and Plan: 1. Abdominal pain secondary to constipation: - Will advance to clear liquids later today. Will start IV D5-NS @ 125 cc/hr. Continue IV PPI qd, IV Zofran prn and IV Dilaudid prn pain. - For constipation, patient is on colace BID CLARA and miralax prn. Patient reports passing gas throughout the night and had one small, hard bowel movement this morning. - CT abd/pelvis showed increased stool and fluid-filled bowel which does not appear obstructive. - Patient has complicated surgical history including perforated sigmoid diverticulitis requiring ostomy (2018), parastomal hernia s/p revision in Sep 2019 and multiple small bowel obstructions. 2. COVID19 positive: - Patient denies any respiratory symptoms at this time. - Patient on intermitted home oxygen 1 L at baseline secondary to history of COPD. 3. DVT prophylaxis: SCD's. 4. Past medical history of hyperlipidemia, anxiety, depression and COPD: - Continue home medications. <Gabriele Faulkner - Last Filed: 05/10/20 21:53> - General Info Subjective Update: I have seen and evaluated the patient and agree with the residents note unless specified in my note - Patient Data Vitals - Most Recent: Last Vital Signs Temp 36.5 C 05/10/20 11:57 Pulse 83 05/10/20 11:57 Resp 18 05/10/20 11:57 BP 98/59 L 05/10/20 11:57 Pulse Ox 94 L 05/10/20 11:57 I&O - Last 24 Hours: Intake & Output 05/10/20 05/10/20 05/10/20 06:59 14:59 22:59 Intake Total 1800 1357 Output Total 850 1100 Balance 950 257 Lab Results Last 24 Hours: Laboratory Results - last 24 hr 05/10/20 05/10/20 Range/Units 06:12 06:12 WBC 4.46 (4.0-11.0) K/uL RBC 3.79 L (4.30-5.90) M/uL Hgb 11.2 L (12.0-16.0) g/dL Hct 35.3 L (36.0-46.0) % MCV 93.1 (80.0-98.0) fL MCH 29.6 (27.0-32.0) pg MCHC 31.7 (31.0-37.0) g/dL RDW Std Deviation 45.3 (28.0-62.0) fl RDW Coeff of Shaq 13 (11.0-15.0) % Plt Count 150 (150-400) K/uL MPV 9.80 (7.40-12.00) fL Neut % (Auto) 44.9 L (48.0-80.0) % Lymph % (Auto) 40.8 H (16.0-40.0) % Lewis % (Auto) 11.9 (0.0-15.0) % Eos % (Auto) 2.2 (0.0-7.0) % Baso % (Auto) 0.2 (0.0-1.5) % Neut # (Auto) 2.0 (1.4-5.7) K/uL Lymph # (Auto) 1.8 (0.6-2.4) K/uL Lewis # (Auto) 0.5 (0.0-0.8) K/uL Eos # (Auto) 0.1 (0.0-0.7) K/uL Baso # (Auto) 0.0 (0.0-0.1) K/uL Nucleated RBC % 0.0 /100WBC Nucleated RBCs # 0 K/uL Sodium 143 (136-145) mmol/L Potassium 3.6 (3.5-5.1) mmol/L Chloride 108 H (98-107) mmol/L Carbon Dioxide 27.3 (21.0-32.0) mmol/L BUN 8 (7.0-18.0) mg/dL Creatinine 0.6 (0.6-1.0) mg/dL Est Cr Clr Drug Dosing 89.54 mL/min Estimated GFR (MDRD) > 60.0 ml/min Glucose 81 (74-106) mg/dL Calcium 8.5 (8.5-10.1) mg/dL Total Bilirubin 1.0 (0.2-1.0) mg/dL AST 24 (15-37) IU/L ALT 31 (14-63) IU/L Alkaline Phosphatase 57 (46-116) U/L Total Protein 6.6 (6.4-8.2) g/dL Albumin 3.5 (3.4-5.0) g/dL Globulin 3.1 (2.6-4.0) g/dL Albumin/Globulin Ratio 1.1 (0.9-1.6) Yair Results Last 24 Hours: Microbiology 05/08/20 19:24 Urine Culture - Final Urine, Clean Catch MIXED ZOE 10,000-100,000 CFU/ML Med Orders - Current: Current Medications Discontinued Medications Albuterol/Ipratropium (Combivent Respimat) 0 gm INH QID PRN PRN Reason: Shortness of Breath Last Admin: 05/10/20 06:04 Dose: 1 puff Documented by: Alprazolam (Xanax) 2 mg PO TID [facility] Alprazolam (Xanax) 2 mg PO TID [facility] Last Admin: 05/09/20 16:09 Dose: Not Given Documented by: Alprazolam (Xanax) 2 mg PO TID@0700,1500,2300 [facility] Last Admin: 05/10/20 06:03 Dose: 2 mg Documented by: Bisacodyl (Dulcolax) 10 mg RECTAL ONETIME ONE Stop: 05/08/20 19:42 Last Admin: 05/08/20 20:21 Dose: Not Given Documented by: Buspirone HCl (Buspar) 15 mg PO BID [facility] Last Admin: 05/10/20 08:40 Dose: 15 mg Documented by: Docusate Sodium (Colace) 100 mg PO BID [facility] Last Admin: 05/10/20 08:40 Dose: 100 mg Documented by: Fluticasone Propionate (Flonase) 0 gm NASBOTH DAILY [facility] Last Admin: 05/10/20 08:37 Dose: 1 puff Documented by: Gabapentin (Neurontin) 300 mg PO TID [facility] Last Admin: 05/09/20 16:09 Dose: Not Given Documented by: Gabapentin (Neurontin) 300 mg PO TID@0700,1500,2300 [facility] Last Admin: 05/10/20 06:03 Dose: 300 mg Documented by: Hydromorphone HCl (Dilaudid) 0.5 mg IVPUSH Q4H PRN PRN Reason: Abdominal Pain Last Admin: 05/09/20 04:00 Dose: 0.5 mg Documented by: Hydromorphone HCl (Dilaudid) 0.5 mg IVPUSH Q3H PRN PRN Reason: Abdominal Pain Last Admin: 05/10/20 09:45 Dose: 0.5 mg Documented by: Lactated Ringer's (Ringers, Lactated) 1,000 mls @ 125 mls/hr IV ASDIRECTED [facility] Last Admin: 05/08/20 18:27 Dose: 125 mls/hr Documented by: Pantoprazole Sodium 40 mg/ (Sodium Chloride) 10 mls @ 300 mls/hr IV DAILY [facility] Last Admin: 05/10/20 08:32 Dose: 300 mls/hr Documented by: Lactated Ringer's (Ringers, Lactated) 1,000 mls @ 125 mls/hr IV ASDIRECTED [facility] Last Admin: 05/09/20 06:09 Dose: 125 mls/hr Documented by: Dextrose/Sodium Chloride (Dextrose 5%-Normal Saline) 1,000 mls @ 100 mls/hr IV Q8H [facility] Last Admin: 05/10/20 06:06 Dose: 100 mls/hr Documented by: Dextrose/Sodium Chloride (Dextrose 5%-1/2 Ns) 1,000 mls @ 100 mls/hr IV ASDIRECTED [facility] Last Admin: 05/10/20 11:51 Dose: 100 mls/hr Documented by: Iopamidol (Isovue Multipack-370 (76%)) 80 ml IVPUSH ONETIME STA Stop: 05/08/20 19:10 Last Admin: 05/08/20 19:10 Dose: 80 ml Documented by: Magnesium Hydroxide (Milk Of Magnesia) 30 ml PO ONETIME ONE Stop: 05/08/20 20:41 Last Admin: 05/09/20 00:28 Dose: Not Given Documented by: Magnesium Hydroxide (Milk Of Magnesia) Confirm Administered Dose 30 ml .ROUTE .STK-MED ONE Stop: 05/09/20 00:03 Last Admin: 05/09/20 00:15 Dose: 30 ml Documented by: Morphine Sulfate (Morphine) 2 mg IVPUSH ONETIME ONE Stop: 05/08/20 17:54 Last Admin: 05/08/20 18:28 Dose: 2 mg Documented by: Morphine Sulfate (Morphine) 2 mg IVPUSH ONETIME ONE Stop: 05/08/20 19:43 Last Admin: 05/08/20 20:03 Dose: 2 mg Documented by: Ondansetron HCl (Zofran) 4 mg IVPUSH ONETIME ONE Stop: 05/08/20 17:54 Last Admin: 05/08/20 18:27 Dose: 4 mg Documented by: Ondansetron HCl (Zofran) 4 mg IVPUSH Q4H PRN PRN Reason: Nausea/Vomiting Oxycodone HCl (Oxycodone) 5 mg PO Q6H PRN PRN Reason: Pain Last Admin: 05/10/20 12:26 Dose: 5 mg Documented by: Polyethylene Glycol (Miralax) 17 gm PO Q8H PRN PRN Reason: Constipation Last Admin: 05/10/20 08:40 Dose: 17 gm Documented by: Sepsis Event Note - Focused Exam Vital Signs: Vital Signs Temp Pulse Resp BP Pulse Ox 05/10/20 11:57 36.5 C 83 18 98/59 L 94 L - Problem List & Annotations (1) Constipation SNOMED Code(s): 76026444 Code(s): K59.00 - CONSTIPATION, UNSPECIFIED Status: Acute Qualifiers: Constipation type: unspecified constipation type Qualified Code(s): K59.00 - Constipation, unspecified (2) Intractable abdominal pain SNOMED Code(s): 51955575 Code(s): R10.9 - UNSPECIFIED ABDOMINAL PAIN Status: Acute (3) COPD (chronic obstructive pulmonary disease) SNOMED Code(s): 89914748 Code(s): J44.9 - CHRONIC OBSTRUCTIVE PULMONARY DISEASE, UNSPECIFIED Status: Chronic Priority: Medium Qualifiers: COPD type: unspecified COPD Qualified Code(s): J44.9 - Chronic obstructive pulmonary disease, unspecified
[2020-05-09] MEDS: busPIRone 5 MG Tab PO SCH ×2 (10:00→20:03)
[2020-05-09] MEDS: Pantoprazole 40 MG in Sodium Chloride 0.9% 10 ML IV SCH (10:01)
[2020-05-09] MEDS: Docusate Sodium 100 MG Cap PO SCH ×2 (10:01→20:02)
[2020-05-09] MEDS: Dextrose 5%-0.9% NaCl 1,000 ML IV SCH ×2 (10:27→20:04)
[2020-05-09] MEDS: Fluticasone Propionate Nasal Spray 16 GM Bottle NASBOTH SCH (10:43)
[2020-05-09] MEDS: HYDROmorphone 1 MG/ML Syringe IVPUSH PRN ×4 (12:34→21:58)
[2020-05-09] MEDS ORDERED: Gabapentin 300 MG Cap PO SCH (14:00)
[2020-05-09] MEDS: Gabapentin 300 MG Cap PO SCH ×2 (15:32→22:00)
[2020-05-10] MEDS: HYDROmorphone 1 MG/ML Syringe IVPUSH PRN ×3 (02:21→09:45)
[2020-05-10] MEDS: Gabapentin 300 MG Cap PO SCH (06:03)
[2020-05-10] MEDS: ALPRAZolam 0.5 MG Tab PO SCH (06:03)
[2020-05-10] MEDS: Albuterol/Ipratropium 4 GM Inhalation Spray INH PRN (06:04)
[2020-05-10] MEDS: Dextrose 5%-0.9% NaCl 1,000 ML IV SCH (06:06)
[2020-05-10 07:07] LABS: BLOOD UREA NITROGEN,BUN 8 mg/dL (7.0-18.0); CARBON DIOXIDE,CO2 27.3 mmol/L (21.0-32.0); CHLORIDE,CL 108 mmol/L (98-107); GLUCOSE RANDOM 81 mg/dL (74-106); POTASSIUM,K 3.6 mmol/L (3.5-5.1); SODIUM,NA 143 mmol/L (136-145)
[2020-05-10] MEDS: Pantoprazole 40 MG in Sodium Chloride 0.9% 10 ML IV SCH (08:32)
[2020-05-10] MEDS: Fluticasone Propionate Nasal Spray 16 GM Bottle NASBOTH SCH (08:37)
[2020-05-10] MEDS: busPIRone 5 MG Tab PO SCH (08:40)
[2020-05-10] MEDS: Docusate Sodium 100 MG Cap PO SCH (08:40)
--- NOTE | 2020-05-10 08:44 | PCM.PN ---
<Ochoa Shipley - Last Filed: 05/10/20 10:54> - General Info Date of Service: 05/10/20 Subjective Update: Patient reports having 3 small bowel movements yesterday and is passing gas. Tolerated clear liquid diet and would like to advance diet today. Abdominal pain has improved a bit. - Patient Data Vitals - Most Recent: Last Vital Signs Temp 36.6 C 05/10/20 08:30 Pulse 77 05/10/20 08:30 Resp 18 05/10/20 08:30 BP 108/65 05/10/20 08:30 Pulse Ox 94 L 05/10/20 08:30 Weight - Most Recent: 57.606 kg I&O - Last 24 Hours: Intake & Output 05/09/20 05/10/20 05/10/20 22:59 06:59 14:59 Intake Total 0 1800 Output Total 900 850 Balance -900 950 Lab Results Last 24 Hours: Laboratory Results - last 24 hr 05/10/20 05/10/20 Range/Units 06:12 06:12 WBC 4.46 (4.0-11.0) K/uL RBC 3.79 L (4.30-5.90) M/uL Hgb 11.2 L (12.0-16.0) g/dL Hct 35.3 L (36.0-46.0) % MCV 93.1 (80.0-98.0) fL MCH 29.6 (27.0-32.0) pg MCHC 31.7 (31.0-37.0) g/dL RDW Std Deviation 45.3 (28.0-62.0) fl RDW Coeff of Shaq 13 (11.0-15.0) % Plt Count 150 (150-400) K/uL MPV 9.80 (7.40-12.00) fL Neut % (Auto) 44.9 L (48.0-80.0) % Lymph % (Auto) 40.8 H (16.0-40.0) % [place] % (Auto) 11.9 (0.0-15.0) % Eos % (Auto) 2.2 (0.0-7.0) % Baso % (Auto) 0.2 (0.0-1.5) % Neut # (Auto) 2.0 (1.4-5.7) K/uL Lymph # (Auto) 1.8 (0.6-2.4) K/uL [place] # (Auto) 0.5 (0.0-0.8) K/uL Eos # (Auto) 0.1 (0.0-0.7) K/uL Baso # (Auto) 0.0 (0.0-0.1) K/uL Nucleated RBC % 0.0 /100WBC Nucleated RBCs # 0 K/uL Sodium 143 (136-145) mmol/L Potassium 3.6 (3.5-5.1) mmol/L Chloride 108 H (98-107) mmol/L Carbon Dioxide 27.3 (21.0-32.0) mmol/L BUN 8 (7.0-18.0) mg/dL Creatinine 0.6 (0.6-1.0) mg/dL Est Cr Clr Drug Dosing 89.54 mL/min Estimated GFR (MDRD) > 60.0 ml/min Glucose 81 (74-106) mg/dL Calcium 8.5 (8.5-10.1) mg/dL Total Bilirubin 1.0 (0.2-1.0) mg/dL AST 24 (15-37) IU/L ALT 31 (14-63) IU/L Alkaline Phosphatase 57 (46-116) U/L Total Protein 6.6 (6.4-8.2) g/dL Albumin 3.5 (3.4-5.0) g/dL Globulin 3.1 (2.6-4.0) g/dL Albumin/Globulin Ratio 1.1 (0.9-1.6) Yair Results Last 24 Hours: Microbiology 05/08/20 19:24 Urine Culture - Final Urine, Clean Catch MIXED ZOE 10,000-100,000 CFU/ML Med Orders - Current: Current Medications Albuterol/Ipratropium (Combivent Respimat) 0 gm INH QID PRN PRN Reason: Shortness of Breath Last Admin: 05/10/20 06:04 Dose: 1 puff Documented by: Alprazolam (Xanax) 2 mg PO TID@0700,1500,2300 [facility] Last Admin: 05/10/20 06:03 Dose: 2 mg Documented by: Buspirone HCl (Buspar) 15 mg PO BID [facility] Last Admin: 05/10/20 08:40 Dose: 15 mg Documented by: Docusate Sodium (Colace) 100 mg PO BID [facility] Last Admin: 05/10/20 08:40 Dose: 100 mg Documented by: Fluticasone Propionate (Flonase) 0 gm NASBOTH DAILY [facility] Last Admin: 05/09/20 10:43 Dose: 1 puff Documented by: Gabapentin (Neurontin) 300 mg PO TID@0700,1500,2300 [facility] Last Admin: 05/10/20 06:03 Dose: 300 mg Documented by: Hydromorphone HCl (Dilaudid) 0.5 mg IVPUSH Q3H PRN PRN Reason: Abdominal Pain Last Admin: 05/10/20 06:04 Dose: 0.5 mg Documented by: Pantoprazole Sodium 40 mg/ (Sodium Chloride) 10 mls @ 300 mls/hr IV DAILY [facility] Last Admin: 05/09/20 10:01 Dose: 300 mls/hr Documented by: Dextrose/Sodium Chloride (Dextrose 5%-Normal Saline) 1,000 mls @ 100 mls/hr IV Q8H [facility] Last Admin: 05/10/20 06:06 Dose: 100 mls/hr Documented by: Ondansetron HCl (Zofran) 4 mg IVPUSH Q4H PRN PRN Reason: Nausea/Vomiting Polyethylene Glycol (Miralax) 17 gm PO Q8H PRN PRN Reason: Constipation Discontinued Medications Alprazolam (Xanax) 2 mg PO TID [facility] Alprazolam (Xanax) 2 mg PO TID [facility] Last Admin: 05/09/20 16:09 Dose: Not Given Documented by: Bisacodyl (Dulcolax) 10 mg RECTAL ONETIME ONE Stop: 05/08/20 19:42 Last Admin: 05/08/20 20:21 Dose: Not Given Documented by: Gabapentin (Neurontin) 300 mg PO TID [facility] Last Admin: 05/09/20 16:09 Dose: Not Given Documented by: Hydromorphone HCl (Dilaudid) 0.5 mg IVPUSH Q4H PRN PRN Reason: Abdominal Pain Last Admin: 05/09/20 04:00 Dose: 0.5 mg Documented by: Lactated Ringer's (Ringers, Lactated) 1,000 mls @ 125 mls/hr IV ASDIRECTED [facility] Last Admin: 05/08/20 18:27 Dose: 125 mls/hr Documented by: Lactated Ringer's (Ringers, Lactated) 1,000 mls @ 125 mls/hr IV ASDIRECTED [facility] Last Admin: 05/09/20 06:09 Dose: 125 mls/hr Documented by: Iopamidol (Isovue Multipack-370 (76%)) 80 ml IVPUSH ONETIME STA Stop: 05/08/20 19:10 Last Admin: 05/08/20 19:10 Dose: 80 ml Documented by: Magnesium Hydroxide (Milk Of Magnesia) 30 ml PO ONETIME ONE Stop: 05/08/20 20:41 Last Admin: 05/09/20 00:28 Dose: Not Given Documented by: Magnesium Hydroxide (Milk Of Magnesia) Confirm Administered Dose 30 ml .ROUTE .STK-MED ONE Stop: 05/09/20 00:03 Last Admin: 05/09/20 00:15 Dose: 30 ml Documented by: Morphine Sulfate (Morphine) 2 mg IVPUSH ONETIME ONE Stop: 05/08/20 17:54 Last Admin: 05/08/20 18:28 Dose: 2 mg Documented by: Morphine Sulfate (Morphine) 2 mg IVPUSH ONETIME ONE Stop: 05/08/20 19:43 Last Admin: 05/08/20 20:03 Dose: 2 mg Documented by: Ondansetron HCl (Zofran) 4 mg IVPUSH ONETIME ONE Stop: 05/08/20 17:54 Last Admin: 05/08/20 18:27 Dose: 4 mg Documented by: - Exam General: Alert, Oriented, Cooperative, No Acute Distress Lungs: Clear to Auscultation, Normal Respiratory Effort Cardiovascular: Regular Rate, Regular Rhythm GI/Abdominal Exam: Normal Bowel Sounds, Soft, No Distention, Other (mild ttp in LLQ). No: Guarding Extremities: Normal Inspection, No Pedal Edema Sepsis Event Note - Evaluation Sepsis Screening Result: No Definite Risk - Focused Exam Vital Signs: Vital Signs Temp Pulse Resp BP Pulse Ox 05/10/20 08:30 36.6 C 77 18 108/65 94 L 05/10/20 02:25 36.6 C 70 17 110/62 92 L 05/09/20 22:03 36.6 C 68 17 103/58 L 93 L - Problem List Review Problem List Initiated/Reviewed/Updated: Yes - My Orders Last 24 Hours: My Active Orders 05/09/20 08:24 Code Status [Resuscitation Status] Routine 05/09/20 10:41 HYDROmorphone [Dilaudid] 0.5 mg IVPUSH Q3H PRN 05/10/20 Breakfast Soft Diet [DIET] - Plan Plan:: Assessment and Plan: 1. Abdominal pain secondary to constipation, improving: - Advance to soft diet. Abdominal pain improving, patient had 3 bowel movements yesterday and tolerated clear liquids. Continue IV PPI qd and IV Zofran prn. For pain, will discontinue IV Dilaudid and start PO oxycodone 325/5 mg q6h prn. For constipation, continue colace BID CLARA and miralax prn. - CT abd/pelvis showed increased stool and fluid-filled bowel which does not appear obstructive. - Patient has complicated surgical history including perforated sigmoid diverticulitis requiring ostomy (2018), parastomal hernia s/p revision in Sep 2019 and multiple small bowel obstructions. 2. COVID19 positive: - No respiratory symptoms at this time. - Patient on intermitted home oxygen 1 L at baseline secondary to history of COPD. 3. DVT prophylaxis: SCD's. 4. Past medical history of hyperlipidemia, anxiety, depression and COPD: - Continue home medications. <Gabriele Faulkner - Last Filed: 05/10/20 21:53> - General Info Subjective Update: I have seen and evaluated the patient and agree with the residents note unless specified in my note - Patient Data Vitals - Most Recent: Last Vital Signs Temp 36.5 C 05/10/20 11:57 Pulse 83 05/10/20 11:57 Resp 18 05/10/20 11:57 BP 98/59 L 05/10/20 11:57 Pulse Ox 94 L 05/10/20 11:57 I&O - Last 24 Hours: Intake & Output 05/10/20 05/10/20 05/10/20 06:59 14:59 22:59 Intake Total 1800 1357 Output Total 850 1100 Balance 950 257 Lab Results Last 24 Hours: Laboratory Results - last 24 hr 05/10/20 05/10/20 Range/Units 06:12 06:12 WBC 4.46 (4.0-11.0) K/uL RBC 3.79 L (4.30-5.90) M/uL Hgb 11.2 L (12.0-16.0) g/dL Hct 35.3 L (36.0-46.0) % MCV 93.1 (80.0-98.0) fL MCH 29.6 (27.0-32.0) pg MCHC 31.7 (31.0-37.0) g/dL RDW Std Deviation 45.3 (28.0-62.0) fl RDW Coeff of Shaq 13 (11.0-15.0) % Plt Count 150 (150-400) K/uL MPV 9.80 (7.40-12.00) fL Neut % (Auto) 44.9 L (48.0-80.0) % Lymph % (Auto) 40.8 H (16.0-40.0) % [place] % (Auto) 11.9 (0.0-15.0) % Eos % (Auto) 2.2 (0.0-7.0) % Baso % (Auto) 0.2 (0.0-1.5) % Neut # (Auto) 2.0 (1.4-5.7) K/uL Lymph # (Auto) 1.8 (0.6-2.4) K/uL [place] # (Auto) 0.5 (0.0-0.8) K/uL Eos # (Auto) 0.1 (0.0-0.7) K/uL Baso # (Auto) 0.0 (0.0-0.1) K/uL Nucleated RBC % 0.0 /100WBC Nucleated RBCs # 0 K/uL Sodium 143 (136-145) mmol/L Potassium 3.6 (3.5-5.1) mmol/L Chloride 108 H (98-107) mmol/L Carbon Dioxide 27.3 (21.0-32.0) mmol/L BUN 8 (7.0-18.0) mg/dL Creatinine 0.6 (0.6-1.0) mg/dL Est Cr Clr Drug Dosing 89.54 mL/min Estimated GFR (MDRD) > 60.0 ml/min Glucose 81 (74-106) mg/dL Calcium 8.5 (8.5-10.1) mg/dL Total Bilirubin 1.0 (0.2-1.0) mg/dL AST 24 (15-37) IU/L ALT 31 (14-63) IU/L Alkaline Phosphatase 57 (46-116) U/L Total Protein 6.6 (6.4-8.2) g/dL Albumin 3.5 (3.4-5.0) g/dL Globulin 3.1 (2.6-4.0) g/dL Albumin/Globulin Ratio 1.1 (0.9-1.6) Yair Results Last 24 Hours: Microbiology 05/08/20 19:24 Urine Culture - Final Urine, Clean Catch MIXED ZOE 10,000-100,000 CFU/ML Med Orders - Current: Current Medications Discontinued Medications Albuterol/Ipratropium (Combivent Respimat) 0 gm INH QID PRN PRN Reason: Shortness of Breath Last Admin: 05/10/20 06:04 Dose: 1 puff Documented by: Alprazolam (Xanax) 2 mg PO TID [facility] Alprazolam (Xanax) 2 mg PO TID [facility] Last Admin: 05/09/20 16:09 Dose: Not Given Documented by: Alprazolam (Xanax) 2 mg PO TID@0700,1500,2300 [facility] Last Admin: 05/10/20 06:03 Dose: 2 mg Documented by: Bisacodyl (Dulcolax) 10 mg RECTAL ONETIME ONE Stop: 05/08/20 19:42 Last Admin: 05/08/20 20:21 Dose: Not Given Documented by: Buspirone HCl (Buspar) 15 mg PO BID [facility] Last Admin: 05/10/20 08:40 Dose: 15 mg Documented by: Docusate Sodium (Colace) 100 mg PO BID [facility] Last Admin: 05/10/20 08:40 Dose: 100 mg Documented by: Fluticasone Propionate (Flonase) 0 gm NASBOTH DAILY [facility] Last Admin: 05/10/20 08:37 Dose: 1 puff Documented by: Gabapentin (Neurontin) 300 mg PO TID [facility] Last Admin: 05/09/20 16:09 Dose: Not Given Documented by: Gabapentin (Neurontin) 300 mg PO TID@0700,1500,2300 [facility] Last Admin: 05/10/20 06:03 Dose: 300 mg Documented by: Hydromorphone HCl (Dilaudid) 0.5 mg IVPUSH Q4H PRN PRN Reason: Abdominal Pain Last Admin: 05/09/20 04:00 Dose: 0.5 mg Documented by: Hydromorphone HCl (Dilaudid) 0.5 mg IVPUSH Q3H PRN PRN Reason: Abdominal Pain Last Admin: 05/10/20 09:45 Dose: 0.5 mg Documented by: Lactated Ringer's (Ringers, Lactated) 1,000 mls @ 125 mls/hr IV ASDIRECTED [facility] Last Admin: 05/08/20 18:27 Dose: 125 mls/hr Documented by: Pantoprazole Sodium 40 mg/ (Sodium Chloride) 10 mls @ 300 mls/hr IV DAILY [facility] Last Admin: 05/10/20 08:32 Dose: 300 mls/hr Documented by: Lactated Ringer's (Ringers, Lactated) 1,000 mls @ 125 mls/hr IV ASDIRECTED [facility] Last Admin: 05/09/20 06:09 Dose: 125 mls/hr Documented by: Dextrose/Sodium Chloride (Dextrose 5%-Normal Saline) 1,000 mls @ 100 mls/hr IV Q8H [facility] Last Admin: 05/10/20 06:06 Dose: 100 mls/hr Documented by: Dextrose/Sodium Chloride (Dextrose 5%-1/2 Ns) 1,000 mls @ 100 mls/hr IV ASDIRECTED [facility] Last Admin: 05/10/20 11:51 Dose: 100 mls/hr Documented by: Iopamidol (Isovue Multipack-370 (76%)) 80 ml IVPUSH ONETIME STA Stop: 05/08/20 19:10 Last Admin: 05/08/20 19:10 Dose: 80 ml Documented by: Magnesium Hydroxide (Milk Of Magnesia) 30 ml PO ONETIME ONE Stop: 05/08/20 20:41 Last Admin: 05/09/20 00:28 Dose: Not Given Documented by: Magnesium Hydroxide (Milk Of Magnesia) Confirm Administered Dose 30 ml .ROUTE .STK-MED ONE Stop: 05/09/20 00:03 Last Admin: 05/09/20 00:15 Dose: 30 ml Documented by: Morphine Sulfate (Morphine) 2 mg IVPUSH ONETIME ONE Stop: 05/08/20 17:54 Last Admin: 05/08/20 18:28 Dose: 2 mg Documented by: Morphine Sulfate (Morphine) 2 mg IVPUSH ONETIME ONE Stop: 05/08/20 19:43 Last Admin: 05/08/20 20:03 Dose: 2 mg Documented by: Ondansetron HCl (Zofran) 4 mg IVPUSH ONETIME ONE Stop: 05/08/20 17:54 Last Admin: 05/08/20 18:27 Dose: 4 mg Documented by: Ondansetron HCl (Zofran) 4 mg IVPUSH Q4H PRN PRN Reason: Nausea/Vomiting Oxycodone HCl (Oxycodone) 5 mg PO Q6H PRN PRN Reason: Pain Last Admin: 05/10/20 12:26 Dose: 5 mg Documented by: Polyethylene Glycol (Miralax) 17 gm PO Q8H PRN PRN Reason: Constipation Last Admin: 05/10/20 08:40 Dose: 17 gm Documented by: Sepsis Event Note - Focused Exam Vital Signs: Vital Signs Temp Pulse Resp BP Pulse Ox 05/10/20 11:57 36.5 C 83 18 98/59 L 94 L - Problem List & Annotations (1) Constipation SNOMED Code(s): 53918920 Code(s): K59.00 - CONSTIPATION, UNSPECIFIED Status: Acute Qualifiers: Constipation type: unspecified constipation type Qualified Code(s): K59.00 - Constipation, unspecified (2) Intractable abdominal pain SNOMED Code(s): 43555872 Code(s): R10.9 - UNSPECIFIED ABDOMINAL PAIN Status: Acute (3) COPD (chronic obstructive pulmonary disease) SNOMED Code(s): 22974522 Code(s): J44.9 - CHRONIC OBSTRUCTIVE PULMONARY DISEASE, UNSPECIFIED Status: Chronic Priority: Medium Qualifiers: COPD type: unspecified COPD Qualified Code(s): J44.9 - Chronic obstructive pulmonary disease, unspecified
[2020-05-10] MEDS ORDERED: oxyCODONE 5 MG Tab PO PRN (10:50)
[2020-05-10] MEDS ORDERED: Dextrose 5%-0.45% NaCl 1,000 ML IV SCH (11:00)
--- NOTE | 2020-05-10 11:53 | PCM.DCSUM1 ---
<Ochoa Shipley - Last Filed: 05/10/20 13:44> Discharge Summary - Hospital Course Free Text/Narrative:: 59-year-old female admitted for abdominal pain secondary to constipation. She has a complicated past surgical history including perforated sigmoid diverticulitis requiring ostomy (2008), parastomal hernia s/p revision (2019), small bowel obstruction, COPD on home oxygen, hyperlipidemia and chronic abdominal pain. On admission, CT abdomen showed increased stool and fluid-filled bowel but no obstruction. COVID19 test positive although patient denied having any respiratory symptoms, no known sick contacts or any recent travel. Patient was made NPO, started on IV fluids and IV dilaudid prn. She was also started on a bowel regimen of colace and miralax. Patient had 3 bowel movements during her hospitalization and saw improvement in her abdominal pain. She was also successfully tolerating oral diet. Patient discharged in stable condition with a script for PO oxycodone 5 mg TID prn x 2 days. She was counselled on continuing bowel regimen. Patient also advised to self-quarantine for at least 10 days on discharge. - Discharge Data Discharge Date: 05/10/20 Discharge Disposition: Home, Self-Care 01 Condition: Stable - Referral to Home Health Primary Care Physician: Yaw Loza MD - Patient Instructions Diet: Usual Diet as Tolerated Activity: As Tolerated Notify Provider of: Fever, Increased Pain, Swelling and Redness, Drainage, Nausea and/or Vomiting Other/Special Instructions: Shortness of breath - Discharge Plan *PRESCRIPTION DRUG MONITORING PROGRAM REVIEWED*: Not Applicable *COPY OF PRESCRIPTION DRUG MONITORING REPORT IN PATIENT CHELSIE: Not Applicable Prescriptions/Med Rec: oxyCODONE 5 mg PO Q8H PRN 2 Days #6 tablet PRN Reason: Pain Home Medications: Home Meds ALPRAZolam [Xanax] 2 mg PO TID 05/29/18 [History] Albuterol/Ipratropium [Combivent Respimat] 1 puff IH QID PRN 05/29/18 [History] busPIRone [Buspar] 15 mg PO BID 11/04/18 [History] Ondansetron [Zofran ODT] 4 mg PO Q6H PRN 08/04/19 [History] Rosuvastatin [Crestor] 5 mg PO BEDTIME 08/04/19 [History] Ipratropium/Albuterol Sulfate [Iprat-Albut 0.5-3(2.5) MG/3 ML] 3 ml NEB Q6HR 02/09/20 [History] Budesonide/Formoterol Fumarate [Symbicort 160-4.5 Mcg Inhaler] 6 gm NEB DAILY 02/20/20 [History] polyethylene glycoL 3350 [MiraLAX] 17 gm PO DAILY 02/20/20 [History] Docusate Sodium [Colace] 100 mg PO BID cap 02/22/20 [Rx] Fluticasone Propionate [Flonase] 1 spr NASBOTH DAILY bottle 02/22/20 [Rx] Gabapentin [Neurontin] 300 mg PO TID 05/08/20 [History] oxyCODONE 5 mg PO Q8H PRN 2 Days #6 tablet 05/10/20 [Rx] Patient Handouts: Oxycodone tablets or capsules, Constipation, Adult, [id number], Abdominal Pain, Adult, [id number] Referrals: Yaw Loza MD [Primary Care Provider] - 06/02/20 8:30 am (Please arrive 15 minutes early with identification, insurance cards and your own facemask.) - Discharge Summary/Plan Comment DC Time >30 min.: No - Patient Data Vitals - Most Recent: Last Vital Signs Temp 36.6 C 05/10/20 08:30 Pulse 77 05/10/20 08:30 Resp 18 05/10/20 08:30 BP 108/65 05/10/20 08:30 Pulse Ox 94 L 05/10/20 08:30 Weight - Most Recent: 57.606 kg I&O - Last 24 hours: Intake & Output 05/09/20 05/10/20 05/10/20 22:59 06:59 14:59 Intake Total 0 1800 Output Total 900 850 Balance -900 950 Lab Results - Last 24 hrs: Laboratory Results - last 24 hr 05/10/20 05/10/20 Range/Units 06:12 06:12 WBC 4.46 (4.0-11.0) K/uL RBC 3.79 L (4.30-5.90) M/uL Hgb 11.2 L (12.0-16.0) g/dL Hct 35.3 L (36.0-46.0) % MCV 93.1 (80.0-98.0) fL MCH 29.6 (27.0-32.0) pg MCHC 31.7 (31.0-37.0) g/dL RDW Std Deviation 45.3 (28.0-62.0) fl RDW Coeff of Shaq 13 (11.0-15.0) % Plt Count 150 (150-400) K/uL MPV 9.80 (7.40-12.00) fL Neut % (Auto) 44.9 L (48.0-80.0) % Lymph % (Auto) 40.8 H (16.0-40.0) % [place] % (Auto) 11.9 (0.0-15.0) % Eos % (Auto) 2.2 (0.0-7.0) % Baso % (Auto) 0.2 (0.0-1.5) % Neut # (Auto) 2.0 (1.4-5.7) K/uL Lymph # (Auto) 1.8 (0.6-2.4) K/uL [place] # (Auto) 0.5 (0.0-0.8) K/uL Eos # (Auto) 0.1 (0.0-0.7) K/uL Baso # (Auto) 0.0 (0.0-0.1) K/uL Nucleated RBC % 0.0 /100WBC Nucleated RBCs # 0 K/uL Sodium 143 (136-145) mmol/L Potassium 3.6 (3.5-5.1) mmol/L Chloride 108 H (98-107) mmol/L Carbon Dioxide 27.3 (21.0-32.0) mmol/L BUN 8 (7.0-18.0) mg/dL Creatinine 0.6 (0.6-1.0) mg/dL Est Cr Clr Drug Dosing 89.54 mL/min Estimated GFR (MDRD) > 60.0 ml/min Glucose 81 (74-106) mg/dL Calcium 8.5 (8.5-10.1) mg/dL Total Bilirubin 1.0 (0.2-1.0) mg/dL AST 24 (15-37) IU/L ALT 31 (14-63) IU/L Alkaline Phosphatase 57 (46-116) U/L Total Protein 6.6 (6.4-8.2) g/dL Albumin 3.5 (3.4-5.0) g/dL Globulin 3.1 (2.6-4.0) g/dL Albumin/Globulin Ratio 1.1 (0.9-1.6) JEFFRY Results - Last 24 hrs: Microbiology 05/08/20 19:24 Urine Culture - Final Urine, Clean Catch MIXED ZOE 10,000-100,000 CFU/ML Med Orders - Current: Current Medications Albuterol/Ipratropium (Combivent Respimat) 0 gm INH QID PRN PRN Reason: Shortness of Breath Last Admin: 05/10/20 06:04 Dose: 1 puff Documented by: Alprazolam (Xanax) 2 mg PO TID@0700,1500,2300 COUNTS INCLUDE 234 BEDS AT [facility] Last Admin: 05/10/20 06:03 Dose: 2 mg Documented by: Buspirone HCl (Buspar) 15 mg PO BID COUNTS INCLUDE 234 BEDS AT [facility] Last Admin: 05/10/20 08:40 Dose: 15 mg Documented by: Docusate Sodium (Colace) 100 mg PO BID COUNTS INCLUDE 234 BEDS AT [facility] Last Admin: 05/10/20 08:40 Dose: 100 mg Documented by: Fluticasone Propionate (Flonase) 0 gm NASBOTH DAILY COUNTS INCLUDE 234 BEDS AT [facility] Last Admin: 05/10/20 08:37 Dose: 1 puff Documented by: Gabapentin (Neurontin) 300 mg PO TID@0700,1500,2300 COUNTS INCLUDE 234 BEDS AT [facility] Last Admin: 05/10/20 06:03 Dose: 300 mg Documented by: Pantoprazole Sodium 40 mg/ (Sodium Chloride) 10 mls @ 300 mls/hr IV DAILY COUNTS INCLUDE 234 BEDS AT [facility] Last Admin: 05/10/20 08:32 Dose: 300 mls/hr Documented by: Dextrose/Sodium Chloride (Dextrose 5%-1/2 Ns) 1,000 mls @ 100 mls/hr IV ASDIRECTED COUNTS INCLUDE 234 BEDS AT [facility] Last Admin: 05/10/20 11:51 Dose: 100 mls/hr Documented by: Ondansetron HCl (Zofran) 4 mg IVPUSH Q4H PRN PRN Reason: Nausea/Vomiting Oxycodone HCl (Oxycodone) 5 mg PO Q6H PRN PRN Reason: Pain Polyethylene Glycol (Miralax) 17 gm PO Q8H PRN PRN Reason: Constipation Last Admin: 05/10/20 08:40 Dose: 17 gm Documented by: Discontinued Medications Alprazolam (Xanax) 2 mg PO TID COUNTS INCLUDE 234 BEDS AT [facility] Alprazolam (Xanax) 2 mg PO TID COUNTS INCLUDE 234 BEDS AT [facility] Last Admin: 05/09/20 16:09 Dose: Not Given Documented by: Bisacodyl (Dulcolax) 10 mg RECTAL ONETIME ONE Stop: 05/08/20 19:42 Last Admin: 05/08/20 20:21 Dose: Not Given Documented by: Gabapentin (Neurontin) 300 mg PO TID COUNTS INCLUDE 234 BEDS AT [facility] Last Admin: 05/09/20 16:09 Dose: Not Given Documented by: Hydromorphone HCl (Dilaudid) 0.5 mg IVPUSH Q4H PRN PRN Reason: Abdominal Pain Last Admin: 05/09/20 04:00 Dose: 0.5 mg Documented by: Hydromorphone HCl (Dilaudid) 0.5 mg IVPUSH Q3H PRN PRN Reason: Abdominal Pain Last Admin: 05/10/20 09:45 Dose: 0.5 mg Documented by: Lactated Ringer's (Ringers, Lactated) 1,000 mls @ 125 mls/hr IV ASDIRECTED COUNTS INCLUDE 234 BEDS AT [facility] Last Admin: 05/08/20 18:27 Dose: 125 mls/hr Documented by: Lactated Ringer's (Ringers, Lactated) 1,000 mls @ 125 mls/hr IV ASDIRECTED COUNTS INCLUDE 234 BEDS AT [facility] Last Admin: 05/09/20 06:09 Dose: 125 mls/hr Documented by: Dextrose/Sodium Chloride (Dextrose 5%-Normal Saline) 1,000 mls @ 100 mls/hr IV Q8H COUNTS INCLUDE 234 BEDS AT [facility] Last Admin: 05/10/20 06:06 Dose: 100 mls/hr Documented by: Iopamidol (Isovue Multipack-370 (76%)) 80 ml IVPUSH ONETIME STA Stop: 05/08/20 19:10 Last Admin: 05/08/20 19:10 Dose: 80 ml Documented by: Magnesium Hydroxide (Milk Of Magnesia) 30 ml PO ONETIME ONE Stop: 05/08/20 20:41 Last Admin: 05/09/20 00:28 Dose: Not Given Documented by: Magnesium Hydroxide (Milk Of Magnesia) Confirm Administered Dose 30 ml .ROUTE .STK-MED ONE Stop: 05/09/20 00:03 Last Admin: 05/09/20 00:15 Dose: 30 ml Documented by: Morphine Sulfate (Morphine) 2 mg IVPUSH ONETIME ONE Stop: 05/08/20 17:54 Last Admin: 05/08/20 18:28 Dose: 2 mg Documented by: Morphine Sulfate (Morphine) 2 mg IVPUSH ONETIME ONE Stop: 05/08/20 19:43 Last Admin: 05/08/20 20:03 Dose: 2 mg Documented by: Ondansetron HCl (Zofran) 4 mg IVPUSH ONETIME ONE Stop: 05/08/20 17:54 Last Admin: 05/08/20 18:27 Dose: 4 mg Documented by: <Gabriele Faulkner - Last Filed: 05/10/20 21:50> Discharge Summary - Hospital Course Free Text/Narrative:: I have seen and evaluated the patient and agree with the residents note unless specified in my note - Referral to Home Health Primary Care Physician: Yaw Loza MD - Discharge Diagnosis/Problem(s) (1) Constipation SNOMED Code(s): 38301086 ICD Code: K59.00 - CONSTIPATION, UNSPECIFIED Status: Acute Qualifiers: Constipation type: unspecified constipation type Qualified Code(s): K59.00 - Constipation, unspecified (2) Intractable abdominal pain SNOMED Code(s): 29816485 ICD Code: R10.9 - UNSPECIFIED ABDOMINAL PAIN Status: Acute (3) COPD (chronic obstructive pulmonary disease) SNOMED Code(s): 21863978 ICD Code: J44.9 - CHRONIC OBSTRUCTIVE PULMONARY DISEASE, UNSPECIFIED Status: Chronic Priority: Medium Qualifiers: COPD type: unspecified COPD Qualified Code(s): J44.9 - Chronic obstructive pulmonary disease, unspecified - Patient Data Vitals - Most Recent: Last Vital Signs Temp 36.5 C 05/10/20 11:57 Pulse 83 05/10/20 11:57 Resp 18 05/10/20 11:57 BP 98/59 L 05/10/20 11:57 Pulse Ox 94 L 05/10/20 11:57 I&O - Last 24 hours: Intake & Output 05/10/20 05/10/20 05/10/20 06:59 14:59 22:59 Intake Total 1800 1357 Output Total 850 1100 Balance 950 257 Lab Results - Last 24 hrs: Laboratory Results - last 24 hr 05/10/20 05/10/20 Range/Units 06:12 06:12 WBC 4.46 (4.0-11.0) K/uL RBC 3.79 L (4.30-5.90) M/uL Hgb 11.2 L (12.0-16.0) g/dL Hct 35.3 L (36.0-46.0) % MCV 93.1 (80.0-98.0) fL MCH 29.6 (27.0-32.0) pg MCHC 31.7 (31.0-37.0) g/dL RDW Std Deviation 45.3 (28.0-62.0) fl RDW Coeff of Shaq 13 (11.0-15.0) % Plt Count 150 (150-400) K/uL MPV 9.80 (7.40-12.00) fL Neut % (Auto) 44.9 L (48.0-80.0) % Lymph % (Auto) 40.8 H (16.0-40.0) % [place] % (Auto) 11.9 (0.0-15.0) % Eos % (Auto) 2.2 (0.0-7.0) % Baso % (Auto) 0.2 (0.0-1.5) % Neut # (Auto) 2.0 (1.4-5.7) K/uL Lymph # (Auto) 1.8 (0.6-2.4) K/uL [place] # (Auto) 0.5 (0.0-0.8) K/uL Eos # (Auto) 0.1 (0.0-0.7) K/uL Baso # (Auto) 0.0 (0.0-0.1) K/uL Nucleated RBC % 0.0 /100WBC Nucleated RBCs # 0 K/uL Sodium 143 (136-145) mmol/L Potassium 3.6 (3.5-5.1) mmol/L Chloride 108 H (98-107) mmol/L Carbon Dioxide 27.3 (21.0-32.0) mmol/L BUN 8 (7.0-18.0) mg/dL Creatinine 0.6 (0.6-1.0) mg/dL Est Cr Clr Drug Dosing 89.54 mL/min Estimated GFR (MDRD) > 60.0 ml/min Glucose 81 (74-106) mg/dL Calcium 8.5 (8.5-10.1) mg/dL Total Bilirubin 1.0 (0.2-1.0) mg/dL AST 24 (15-37) IU/L ALT 31 (14-63) IU/L Alkaline Phosphatase 57 (46-116) U/L Total Protein 6.6 (6.4-8.2) g/dL Albumin 3.5 (3.4-5.0) g/dL Globulin 3.1 (2.6-4.0) g/dL Albumin/Globulin Ratio 1.1 (0.9-1.6) JEFFRY Results - Last 24 hrs: Microbiology 05/08/20 19:24 Urine Culture - Final Urine, Clean Catch MIXED ZOE 10,000-100,000 CFU/ML Med Orders - Current: Current Medications Discontinued Medications Albuterol/Ipratropium (Combivent Respimat) 0 gm INH QID PRN PRN Reason: Shortness of Breath Last Admin: 05/10/20 06:04 Dose: 1 puff Documented by: Alprazolam (Xanax) 2 mg PO TID COUNTS INCLUDE 234 BEDS AT [facility] Alprazolam (Xanax) 2 mg PO TID COUNTS INCLUDE 234 BEDS AT [facility] Last Admin: 05/09/20 16:09 Dose: Not Given Documented by: Alprazolam (Xanax) 2 mg PO TID@0700,1500,2300 COUNTS INCLUDE 234 BEDS AT [facility] Last Admin: 05/10/20 06:03 Dose: 2 mg Documented by: Bisacodyl (Dulcolax) 10 mg RECTAL ONETIME ONE Stop: 05/08/20 19:42 Last Admin: 05/08/20 20:21 Dose: Not Given Documented by: Buspirone HCl (Buspar) 15 mg PO BID COUNTS INCLUDE 234 BEDS AT [facility] Last Admin: 05/10/20 08:40 Dose: 15 mg Documented by: Docusate Sodium (Colace) 100 mg PO BID COUNTS INCLUDE 234 BEDS AT [facility] Last Admin: 05/10/20 08:40 Dose: 100 mg Documented by: Fluticasone Propionate (Flonase) 0 gm NASBOTH DAILY COUNTS INCLUDE 234 BEDS AT [facility] Last Admin: 05/10/20 08:37 Dose: 1 puff Documented by: Gabapentin (Neurontin) 300 mg PO TID COUNTS INCLUDE 234 BEDS AT [facility] Last Admin: 05/09/20 16:09 Dose: Not Given Documented by: Gabapentin (Neurontin) 300 mg PO TID@0700,1500,2300 COUNTS INCLUDE 234 BEDS AT [facility] Last Admin: 05/10/20 06:03 Dose: 300 mg Documented by: Hydromorphone HCl (Dilaudid) 0.5 mg IVPUSH Q4H PRN PRN Reason: Abdominal Pain Last Admin: 05/09/20 04:00 Dose: 0.5 mg Documented by: Hydromorphone HCl (Dilaudid) 0.5 mg IVPUSH Q3H PRN PRN Reason: Abdominal Pain Last Admin: 05/10/20 09:45 Dose: 0.5 mg Documented by: Lactated Ringer's (Ringers, Lactated) 1,000 mls @ 125 mls/hr IV ASDIRECTED COUNTS INCLUDE 234 BEDS AT [facility] Last Admin: 05/08/20 18:27 Dose: 125 mls/hr Documented by: Pantoprazole Sodium 40 mg/ (Sodium Chloride) 10 mls @ 300 mls/hr IV DAILY COUNTS INCLUDE 234 BEDS AT [facility] Last Admin: 05/10/20 08:32 Dose: 300 mls/hr Documented by: Lactated Ringer's (Ringers, Lactated) 1,000 mls @ 125 mls/hr IV ASDIRECTED COUNTS INCLUDE 234 BEDS AT [facility] Last Admin: 05/09/20 06:09 Dose: 125 mls/hr Documented by: Dextrose/Sodium Chloride (Dextrose 5%-Normal Saline) 1,000 mls @ 100 mls/hr IV Q8H COUNTS INCLUDE 234 BEDS AT [facility] Last Admin: 05/10/20 06:06 Dose: 100 mls/hr Documented by: Dextrose/Sodium Chloride (Dextrose 5%-1/2 Ns) 1,000 mls @ 100 mls/hr IV ASDIRECTED COUNTS INCLUDE 234 BEDS AT [facility] Last Admin: 05/10/20 11:51 Dose: 100 mls/hr Documented by: Iopamidol (Isovue Multipack-370 (76%)) 80 ml IVPUSH ONETIME STA Stop: 05/08/20 19:10 Last Admin: 05/08/20 19:10 Dose: 80 ml Documented by: Magnesium Hydroxide (Milk Of Magnesia) 30 ml PO ONETIME ONE Stop: 05/08/20 20:41 Last Admin: 05/09/20 00:28 Dose: Not Given Documented by: Magnesium Hydroxide (Milk Of Magnesia) Confirm Administered Dose 30 ml .ROUTE .STK-MED ONE Stop: 05/09/20 00:03 Last Admin: 05/09/20 00:15 Dose: 30 ml Documented by: Morphine Sulfate (Morphine) 2 mg IVPUSH ONETIME ONE Stop: 05/08/20 17:54 Last Admin: 05/08/20 18:28 Dose: 2 mg Documented by: Morphine Sulfate (Morphine) 2 mg IVPUSH ONETIME ONE Stop: 05/08/20 19:43 Last Admin: 05/08/20 20:03 Dose: 2 mg Documented by: Ondansetron HCl (Zofran) 4 mg IVPUSH ONETIME ONE Stop: 05/08/20 17:54 Last Admin: 05/08/20 18:27 Dose: 4 mg Documented by: Ondansetron HCl (Zofran) 4 mg IVPUSH Q4H PRN PRN Reason: Nausea/Vomiting Oxycodone HCl (Oxycodone) 5 mg PO Q6H PRN PRN Reason: Pain Last Admin: 05/10/20 12:26 Dose: 5 mg Documented by: Polyethylene Glycol (Miralax) 17 gm PO Q8H PRN PRN Reason: Constipation Last Admin: 05/10/20 08:40 Dose: 17 gm Documented by:
== END 2020-05-10 13:15 | disposition home or self-care (01) ==
LOC: MW.ED 17:19 → MW.MS 19:41
PROVIDERS: ADMIT Student in an Organized Health Care Education/Training Program; ATTEND Student in an Organized Health Care Education/Training Program
DX: K59.00 Constipation, unspecified (principal); U07.1 COVID-19; J44.9 Chronic obstructive pulmonary disease, unspecified; R10.9 Unspecified abdominal pain; E78.5 Hyperlipidemia, unspecified; F41.9 Anxiety disorder, unspecified; F32.9 Major depressive disorder, single episode, unspecified; Z98.890 Other specified postprocedural states; Z87.19 Personal history of other diseases of the digestive system; Z79.899 Other long term (current) drug therapy; Z90.49 Acquired absence of other specified parts of digestive tract; Z87.891 Personal history of nicotine dependence
CPT/HCPCS: 36415; 74177; 80048; 80053; 81001; 82550; 82728; 83605; 83615; 83690; 83735; 84100; 85025; 85379; 86140; 87086; 96361; 96374; 96375; 96376; 99285; A9270; C9113; G0378; J1170; J2270; J2405; J7042; J7050; J7120; Q9967; U0002; 99284

== ENCOUNTER 2020-06-12 10:21 | Emergency (ER) | payer MEDICARE, OTHER ==
--- NOTE | 2020-06-12 10:27 | EDM.PDOC ---
ED HPI GENERAL MEDICAL PROBLEM - General Chief Complaint: Abdominal Pain Stated Complaint: ABDOMINAL PAIN Time Seen by Provider: 06/12/20 10:24 Source of Information: Reports: Patient History Limitations: Reports: No Limitations - History of Present Illness INITIAL COMMENTS - FREE TEXT/NARRATIVE: HISTORY AND PHYSICAL: History of present illness: Patient is a 59-year-old female who presents to the emergency room with complaints of generalized abdominal pain and concerns of a bowel obstruction. History of complicated past surgical history of perforated sigmoid diverticulitis requiring colon ostomy in 2008, complicated by parastomal hernia, status post revision in September 2019, multiple small bowel obstructions, hyperlipidemia, anxiety, depression, COPD and chronic abdominal pain. Patient was last admitted to the hospital on 05/08/2020 abdominal pain/constipation. She had 2 days of bowel rest, IV pain management and fluids. It was incidentally found that she tested positive for COVID-19 upon admission. She states she has not had any respiratory symptoms or concerns. Last night patient started to have generalized abdominal pain, worse in the upper quadrants. She did have a small hard stool last evening although feels she is bloated. States the symptoms are consistent with her past obstructions and is concerned she needs to be admitted for further care and management. Patient denies any fever, chills, headache, change in vision, syncope or near syncope. Denies any chest pain, back pain, shortness of breath or cough. Denies any nausea, vomiting, diarrhea, constipation or dysuria. Has not noted any blood in urine or stool. Patient has been eating and drinking appropriately. Review of systems: As per history of present illness and below otherwise all systems reviewed and negative. Past medical history: As per history of present illness and as reviewed below otherwise noncontributory. Surgical history: As per history of present illness and as reviewed below otherwise noncontributory. Social history: See social history for further information Family history: As per history of present illness and as reviewed below otherwise noncontribu tory. Physical exam: General: Chronically ill appearing but well developed and well nourished 59 year old female. Alert and orientated x 3. Nontoxic in appearance and in no acute distress. Vital signs are stable and have been reviewed by me. Nursing notes were reviewed. HEENT: Atraumatic, normocephalic, pupils equal and reactive bilaterally, negative for conjunctival pallor or scleral icterus, mucous membranes moist, TMs normal bilaterally, throat clear, neck supple, nontender, trachea midline. No drooling or trismus noted. No meningeal signs. No hot potato voice noted. Lungs: Clear to auscultation, breath sounds equal bilaterally, chest nontender. Normal work of breathing, no accessory muscles used. Heart: S1S2, regular rate and rhythm without overt murmur Abdomen: Soft, nondistended, tenderness generalized Negative for masses or hepatosplenomegaly. Negative for costovertebral tenderness. Skin: Intact, warm, dry. No lesions or rashes noted. Hematologic: No petechiae or purpra. Mucosa appropriate color and normal nail bed color and refill. Extremities: Atraumatic, moves all extremities per self without difficulty or deficits, negative for cords or calf pain. Neurovascular unremarkable. Neuro: Awake, alert, oriented. Cranial nerves II through XII unremarkable. Cerebellum unremarkable. Motor and sensory unremarkable throughout. Exam nonfocal. Psychiatric: Mood and affect are appropriate. Normal thought process. Answering questions appropriately. Notes: CT shows diffuse increased stool throughout the colon. No evidence of obstruction. Emphysema changes are noted within both bases of lung. Lab work is unremarkable. I did discuss with patient the findings in addition to providing specific details for plan of care. We discussed observation admission for abdominal pain versus taking medication at home to alleviate her constipation. She states she would prefer to be home. Requesting that 1 dose of medication be sent with her so she does not have to go to the store (COVID exposure) reassessment at the time of disposition demonstrates that the patient is appropriate for discharge. We discussed in great length signs and symptoms that would prompt her to return to the emergency room. Encouraged her to follow-up with her primary care provider. She voices understanding and is agreeable to plan of care. Diagnostics: CBC, CMP, Lipase, UA, Lactate, CT abd/pelvis Therapeutics: LR at 125mlsl/hr, Morphine, Zofran, MOM Impression: Constipation Plan: 1. Encourage small frequent sips of fluids to prevent dehydration. Holden diet over the next 24-48 hours, advance as tolerated. 2. Tylenol and/or Ibuprofen as needed for pain and fever management. 3. If you should develop worsening symptoms, new symptoms develop or any of the symptoms we discussed - RETURN to the ED as we discussed. 4. Follow up with your primary care provider or the general surgeon as we discussed. Definitive disposition and diagnosis as appropriate pending reevaluation and review of above. left abdomen Pain Score (Numeric/FACES): 8 - Related Data Allergies Allergy/AdvReac Type Severity Reaction Status Date / Time No Known Allergies Allergy Verified 06/12/20 10:36 Home Meds: Home Meds ALPRAZolam [Xanax] 2 mg PO TID 05/29/18 [History] Albuterol/Ipratropium [Combivent Respimat] 1 puff IH QID PRN 05/29/18 [History] busPIRone [Buspar] 15 mg PO BID 11/04/18 [History] Ondansetron [Zofran ODT] 4 mg PO Q6H PRN 08/04/19 [History] Rosuvastatin [Crestor] 5 mg PO BEDTIME 08/04/19 [History] Ipratropium/Albuterol Sulfate [Iprat-Albut 0.5-3(2.5) MG/3 ML] 3 ml NEB Q6HR 02/09/20 [History] Docusate Sodium [Colace] 100 mg PO BID cap 02/22/20 [Rx] Fluticasone Propionate [Flonase] 1 spr NASBOTH DAILY bottle 02/22/20 [Rx] Gabapentin [Neurontin] 300 mg PO TID 05/08/20 [History] Past Medical History - Past Health History Medical/Surgical History: Denies Medical/Surgical History HEENT History: Reports: None Cardiovascular History: Reports: Heart Murmur 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 Respiratory History: Reports: COPD Other Respiratory History: emphsyema Gastrointestinal History: Reports: Bowel Obstruction, Diverticulosis, Other (See Below) Other Gastrointestinal History: Bowel obstruction 2018, perforated sigmoid diverticulitis status post colostomy (2019): Status post colostomy takedown (September 2019), status post appendectomy Genitourinary History: Reports: None ACCOUNT RESOLUTION ANALYST History: Reports: Other ACCOUNT RESOLUTION ANALYST History: 4X C-sections Musculoskeletal History: Reports: Arthritis Neurological History: Reports: None Psychiatric History: Reports: Anxiety, Depression, Panic Attack Endocrine/Metabolic History: Reports: None Hematologic History: Reports: Blood Transfusion(s) Immunologic History: Reports: None Oncologic (Cancer) History: Reports: None Dermatologic History: Reports: None - Infectious Disease History Infectious Disease History: Reports: Chicken Pox, Measles, Mumps - Past Surgical History Head Surgeries/Procedures: Reports: None HEENT Surgical History: Reports: Tonsillectomy Cardiovascular Surgical History: Reports: Cardiac Ablation Respiratory Surgical History: Reports: None GI Surgical History: Reports: Appendectomy, Colonoscopy, Colostomy, Other (See Below) Other GI Surgeries/Procedures: Colostomy: reversed in [place] Female Surgical History: Reports: Section, Tubal Ligation Endocrine Surgical History: Reports: None Neurological Surgical History: Reports: None Musculoskeletal Surgical History: Reports: None Oncologic Surgical History: Reports: None Dermatological Surgical History: Reports: None Social & Family History - Family History Family Medical History: Noncontributory - Caffeine Use Caffeine Use: Reports: Coffee Other Caffeine Use: 3cups/day Caffeine Use Comment: 1/2 cup each day ED ROS GENERAL - Review of Systems Review Of Systems: Comprehensive ROS is negative, except as noted in HPI. ED EXAM, GI/ABD - Physical Exam Exam: See Below (See dictation) Course - Vital Signs Last Recorded V/S: Last Vital Signs Temp 96.5 F L 06/12/20 13:23 Pulse 74 06/12/20 13:23 Resp 16 06/12/20 13:23 BP 126/78 06/12/20 13:23 Pulse Ox 97 06/12/20 13:23 - Orders/Labs/Meds Orders: Active Orders 24 hr Category Date Time Status EKG Documentation Completion [RC] STAT Care 06/12/20 10:38 Active UA RFX JEFFRY AND CULT IF INDIC [URIN] Stat Lab 06/12/20 13:20 Received Lactated Ringers [Ringers, Lactated] 1,000 ml Med 06/12/20 11:00 Active IV ASDIRECTED Sodium Chloride 0.9% [Saline Flush] Med 06/12/20 10:28 Active 10 ml FLUSH ASDIRECTED PRN Sodium Chloride 0.9% [Saline Flush] Med 06/12/20 10:28 Active 2.5 ml FLUSH ASDIRECTED PRN Saline Lock Insert [OM.PC] Stat Oth 06/12/20 10:28 Ordered Medication Orders Lactated Ringer's (Ringers, Lactated) 1,000 mls @ 125 mls/hr IV ASDIRECTED CLARA Last Admin: 06/12/20 11:07 Dose: 125 mls/hr Documented by: ALEYDA Sodium Chloride (Saline Flush) 10 ml FLUSH ASDIRECTED PRN PRN Reason: Keep Vein Open Last Admin: 06/12/20 10:54 Dose: 10 ml Documented by: ALEYDA Sodium Chloride (Saline Flush) 2.5 ml FLUSH ASDIRECTED PRN PRN Reason: Keep Vein Open Last Admin: 06/12/20 10:54 Dose: 2.5 ml Documented by: ALEYDA Labs: Laboratory Tests 06/12/20 06/12/20 06/12/20 Range/Units 10:49 10:49 10:49 WBC 5.77 (4.0-11.0) K/uL RBC 4.23 L (4.30-5.90) M/uL Hgb 12.7 (12.0-16.0) g/dL Hct 39.1 (36.0-46.0) % MCV 92.4 (80.0-98.0) fL MCH 30.0 (27.0-32.0) pg MCHC 32.5 (31.0-37.0) g/dL RDW Std Deviation 43.2 (28.0-62.0) fl RDW Coeff of Shaq 13 (11.0-15.0) % Plt Count 176 (150-400) K/uL MPV 10.10 (7.40-12.00) fL Neut % (Auto) 51.6 (48.0-80.0) % Lymph % (Auto) 36.2 (16.0-40.0) % [place] % (Auto) 10.2 (0.0-15.0) % Eos % (Auto) 1.7 (0.0-7.0) % Baso % (Auto) 0.3 (0.0-1.5) % Neut # (Auto) 3.0 (1.4-5.7) K/uL Lymph # (Auto) 2.1 (0.6-2.4) K/uL [place] # (Auto) 0.6 (0.0-0.8) K/uL Eos # (Auto) 0.1 (0.0-0.7) K/uL Baso # (Auto) 0.0 (0.0-0.1) K/uL Nucleated RBC % 0.0 /100WBC Nucleated RBCs # 0 K/uL Lactate 0.8 (0.20-2.00) mmol/L Sodium 142 (136-145) mmol/L Potassium 4.1 (3.5-5.1) mmol/L Chloride 104 (98-107) mmol/L Carbon Dioxide 28.5 (21.0-32.0) mmol/L BUN 14 (7.0-18.0) mg/dL Creatinine 0.7 (0.6-1.0) mg/dL Est Cr Clr Drug Dosing 84.00 mL/min Estimated GFR (MDRD) > 60.0 ml/min Glucose 86 (74-106) mg/dL Calcium 9.3 (8.5-10.1) mg/dL Total Bilirubin 0.7 (0.2-1.0) mg/dL AST 23 (15-37) IU/L ALT 31 (14-63) IU/L Alkaline Phosphatase 70 (46-116) U/L Total Protein 7.5 (6.4-8.2) g/dL Albumin 4.2 (3.4-5.0) g/dL Globulin 3.3 (2.6-4.0) g/dL Albumin/Globulin Ratio 1.3 (0.9-1.6) Lipase 47 L (73-393) U/L Meds: Medications Generic Name Dose Route Start Last Admin Trade Name Freq PRN Reason Stop Dose Admin Lactated Ringer's 1,000 mls @ 125 mls/hr 06/12/20 11:00 06/12/20 11:07 Ringers, Lactated IV 125 mls/hr ASDIRECTED CLARA Administration Sodium Chloride 10 ml 06/12/20 10:28 06/12/20 10:54 Saline Flush FLUSH 10 ml ASDIRECTED PRN Administration Keep Vein Open Sodium Chloride 2.5 ml 06/12/20 10:28 06/12/20 10:54 Saline Flush FLUSH 2.5 ml ASDIRECTED PRN Administration Keep Vein Open Discontinued Medications Generic Name Dose Route Start Last Admin Trade Name Freq PRN Reason Stop Dose Admin Magnesium Hydroxide 30 ml 06/12/20 13:07 Milk Of Magnesia PO 06/12/20 13:08 ONETIME ONE Morphine Sulfate 4 mg 06/12/20 10:38 06/12/20 10:49 Morphine IVPUSH 09/21/20 10:39 4 mg ONETIME ONE Administration Morphine Sulfate 4 mg 06/12/20 12:10 06/12/20 12:14 Morphine IVPUSH 06/12/20 12:11 4 mg ONETIME ONE Administration Ondansetron HCl 4 mg 06/12/20 10:38 06/12/20 10:50 Zofran IVPUSH 06/12/20 10:39 4 mg ONETIME ONE Administration Departure - Departure Time of Disposition: 13:31 Disposition: Home, Self-Care 01 Clinical Impression: Constipation Qualifiers: Constipation type: unspecified constipation type Qualified Code(s): K59.00 - Constipation, unspecified - Discharge Information Instructions: Constipation, Adult, [id number] Referrals: Yaw Loza MD [Primary Care Provider] - Forms: ED Department Discharge Additional Instructions: The following information is given to patients seen in the emergency department who are being discharged to home. This information is to outline your options for follow-up care. We provide all patients seen in our emergency department with a follow-up referral. The need for follow-up, as well as the timing and circumstances, are variable depending upon the specifics of your emergency department visit. If you don't have a primary care physician on staff, we will provide you with a referral. We always advise you to contact your personal physician following an emergency department visit to inform them of the circumstance of the visit and for follow-up with them and/or the need for any referrals to a consulting specialist. The emergency department will also refer you to a specialist when appropriate. This referral assures that you have the opportunity for follow-up care with a specialist. All of these measure are taken in an effort to provide you with optimal care, which includes your follow-up. Under all circumstances we always encourage you to contact your private physician who remains a resource for coordinating your care. When calling for follow-up care, please make the office aware that this follow-up is from your recent emergency room visit. If for any reason you are refused follow-up, please contact the [facility] Emergency Department at and asked to speak to the emergency department charge nurse. [facility] [address] [place] [id number] [id number] Thank you for choosing the [facility] emergency department in [place] for your medical needs today. It was a pleasure caring for you. Today you were seen in the emergency department for abdominal pain. 1. Encourage small frequent sips of fluids to prevent dehydration. Holden diet over the next 24-48 hours, advance as tolerated. 2. Tylenol and/or Ibuprofen as needed for pain and fever management. 3. If you should develop worsening symptoms, new symptoms develop or any of the symptoms we discussed - RETURN to the ED as we discussed. 4. Follow up with your primary care provider or the general surgeon as we discussed. Sepsis Event Note (ED) - Focused Exam Vital Signs: Vital Signs Temp Pulse Resp BP Pulse Ox 06/12/20 13:23 96.5 F L 74 16 126/78 97 06/12/20 10:33 96.8 F L 90 18 142/77 H 94 L - My Orders Last 24 Hours: My Active Orders 06/12/20 10:28 Sodium Chloride 0.9% [Saline Flush] 10 ml FLUSH ASDIRECTED PRN Sodium Chloride 0.9% [Saline Flush] 2.5 ml FLUSH ASDIRECTED PRN Saline Lock Insert [OM.PC] Stat 06/12/20 10:38 EKG Documentation Completion [RC] STAT 06/12/20 11:00 Lactated Ringers [Ringers, Lactated] 1,000 ml IV ASDIRECTED 06/12/20 13:20 UA RFX JEFFRY AND CULT IF INDIC [URIN] Stat - Assessment/Plan Last 24 Hours: My Active Orders 06/12/20 10:28 Sodium Chloride 0.9% [Saline Flush] 10 ml FLUSH ASDIRECTED PRN Sodium Chloride 0.9% [Saline Flush] 2.5 ml FLUSH ASDIRECTED PRN Saline Lock Insert [OM.PC] Stat 06/12/20 10:38 EKG Documentation Completion [RC] STAT 06/12/20 11:00 Lactated Ringers [Ringers, Lactated] 1,000 ml IV ASDIRECTED 06/12/20 13:20 UA RFX JEFFRY AND CULT IF INDIC [URIN] Stat
[2020-06-12] MEDS ORDERED: Sodium Chloride 0.9% 10 ML Syringe FLUSH PRN (10:28)
[2020-06-12] MEDS ORDERED: Sodium Chloride 0.9% 2.5 ML Syringe FLUSH PRN (10:28)
[2020-06-12] MEDS ORDERED: Morphine 4 MG/ML Syringe IVPUSH ONE ×2 (10:38→12:10)
[2020-06-12] MEDS ORDERED: Ondansetron 4 MG/2 ML SDV IVPUSH ONE (10:38)
[2020-06-12] MEDS ORDERED: Lactated Ringers 1,000 ML IV SCH (11:00)
[2020-06-12 11:23] LABS: BLOOD UREA NITROGEN,BUN 14 mg/dL (7.0-18.0); CARBON DIOXIDE,CO2 28.5 mmol/L (21.0-32.0); CHLORIDE,CL 104 mmol/L (98-107); GLUCOSE RANDOM 86 mg/dL (74-106); LIPASE 47 U/L (73-393); POTASSIUM,K 4.1 mmol/L (3.5-5.1); SODIUM,NA 142 mmol/L (136-145)
--- NOTE | 2020-06-12 13:02 | CT ---
CT abdomen and pelvis Technique: Multiple axial sections were obtained from above the dome of the diaphragm inferiorly through the pubic symphysis. Intravenous contrast was utilized. No oral contrast has been given. Comparison: Prior CT abdomen and pelvis study of 05/08/20 is available. Findings: Emphysematous changes are noted within both lung bases. Small area of focal fatty eventration is noted within the left posterior lung. Mild areas of scarring is seen within the right lung base. Liver contains no focal abnormality. Gallbladder contains no calcified gallstones. Very minimal intrahepatic ductal prominence is seen which appears stable. Spleen appears normal. Adrenal glands show no nodule. Kidney show symmetric contrast enhancement. Cyst noted within the left kidney which measures 1.5 cm in size. Aorta shows atherosclerotic calcification without aneurysm. Atherosclerotic calcification continues into the iliac vessels. No pelvic mass or adenopathy is seen. Diffuse increased stool throughout the colon is noted. Bone window settings were reviewed which shows degenerative change scattered within the spine. Chronic limbus type vertebra is noted off the anterior and superior endplate of L3. Impression: 1. Diffuse increased stool throughout the colon. 2. Other findings as noted above believed to be nonacute and incidental. Diagnostic code #3 This report was dictated in MDT
[2020-06-12] MEDS ORDERED: Magnesium Hydroxide 400 MG/5 ML Susp 30 ML Cup PO ONE (13:07)
[2020-06-12] MEDS ORDERED: Iopamidol 755 MG/ML 500 ML Multipack Bottle IVPUSH STA (18:20)
== END 2020-06-12 13:46 | disposition home or self-care (01) ==
LOC: MW.ED 10:21
DX: K59.00 Constipation, unspecified (principal); F41.0 Panic disorder [episodic paroxysmal anxiety]; F32.9 Major depressive disorder, single episode, unspecified; J43.9 Emphysema, unspecified; Z90.49 Acquired absence of other specified parts of digestive tract; Z79.899 Other long term (current) drug therapy
CPT/HCPCS: 74177; 80053; 81001; 83605; 83690; 85025; 87086; 93005; 96361; 96374; 96375; 96376; 99284; A9270; J2270; J2405; J7120; Q9967; 99283

== ENCOUNTER 2020-07-26 14:42 | Emergency (ER) | payer MEDICARE, OTHER ==
[2020-07-26] MEDS ORDERED: Ondansetron 4 MG/2 ML SDV IVPUSH ONE (15:24)
[2020-07-26] MEDS ORDERED: Morphine 2 MG/ML SYRINGE IVPUSH ONE (15:24)
[2020-07-26] MEDS ORDERED: Sodium Chloride 0.9% 1,000 ML IV ONE (15:24)
[2020-07-26 16:00] LABS: BLOOD UREA NITROGEN,BUN 18 mg/dL (7.0-18.0); CARBON DIOXIDE,CO2 28.3 mmol/L (21.0-32.0); CHLORIDE,CL 104 mmol/L (98-107); GLUCOSE RANDOM 88 mg/dL (74-106); LIPASE 53 U/L (73-393); POTASSIUM,K 4.1 mmol/L (3.5-5.1); SODIUM,NA 141 mmol/L (136-145)
--- NOTE | 2020-07-26 16:00 | EDM.PDOC ---
ED HPI GENERAL MEDICAL PROBLEM - General Chief Complaint: Gastrointestinal Problem Stated Complaint: BOWEL OBSTRUCTION Time Seen by Provider: 07/26/20 15:10 Source of Information: Reports: Patient History Limitations: Reports: No Limitations - History of Present Illness INITIAL COMMENTS - FREE TEXT/NARRATIVE: HISTORY AND PHYSICAL: History of present illness: Patient is a 59-year-old female who presents to the emergency room with complaints of generalized abdominal pain, nausea since Friday. She states she had a small bowel movement on Friday although at that time felt constipated. She states she has not had a bowel movement since. She does have a significant GI history with a recent colostomy with reversal due to a bowel perforation. Patient denies any fever, chills, headache, change in vision, syncope or near syncope. Denies any chest pain, back pain, shortness of breath or cough. Denies any dysuria, blood in urine or stool. Patient has been eating and drinking appropriately. Review of systems: As per history of present illness and below otherwise all systems reviewed and negative. Past medical history: As per history of present illness and as reviewed below otherwise noncontributory. Surgical history: As per history of present illness and as reviewed below otherwise noncontributory. Social history: See social history for further information Family history: As per history of present illness and as reviewed below otherwise noncontributory. Physical exam: General: Well developed and well nourished. Alert and orientated x 3. Nontoxic in appearance and in no acute distress. Vital signs are stable and have been reviewed by me. Nursing notes were reviewed. HEENT: Atraumatic, normocephalic, pupils equal and reactive bilaterally, negative for conjunctival pallor or scleral icterus, mucous membranes moist, trachea midline. No drooling or trismus noted. No meningeal signs. No hot potato voice noted. Lungs: Clear to auscultation, breath sounds equal bilaterally, chest nontender. Normal work of breathing, no accessory muscles used. Heart: S1S2, regular rate and rhythm without overt murmur Abdomen: Semi firm, distended, generalized tenderness in all 4 quadrants. Negative for masses or hepatosplenomegaly. Negative for costovertebral tenderness. Pelvis: Stable nontender. Skin: Intact, warm, dry. No lesions or rashes noted. Hematologic: No petechiae or purpra. Mucosa appropriate color and normal nail bed color and refill. Extremities: Atraumatic, moves all extremities per self without difficulty or deficits, negative for cords or calf pain. Neurovascular unremarkable. Neuro: Awake, alert, oriented. Cranial nerves II through XII unremarkable. Cerebellum unremarkable. Motor and sensory unremarkable throughout. Exam nonfocal. Psychiatric: Mood and affect are appropriate. Normal thought process. Answering questions appropriately. Notes: CT shows copious amounts of retained stool throughout the redundant colon. Status post resection sigmoid colon with end-to-end anastomosis. Negative CT and abdomen with intravenous contrast otherwise. I did offer to give the patient medication and/or an enema while here in the emergency room. She states she would prefer to be in the privacy of her own home and use [id number] methods for alleviating her constipation. Initial dose of Macrobid given for UTI. I have spoken with the patient/caregiver and discussed today's findings, in addition to providing specific details for plan of care. Reassessment at the time of disposition demonstrates that the patient is in no acute distress. The patient has remained stable throughout the entire ED visit and is without objective evidence for acute process requiring urgent intervention or hospitalization. The patient is stable for discharge, counseling was provided and we discussed in great detail signs and symptoms that would prompt them to return to the Emergency Department. Medication, follow up and supportive care measures were reviewed and discussed. Voices understanding and is agreeable to plan of care. Denies any further questions or concerns at this time. Diagnostics: CBC, CMP, UA, CT abd/pelvis Therapeutics: IV fluids, Morphine, Zofran, MOM, Macrobid Prescription: Macrobid Impression: Constipation UTI Plan: 1. Today your CT shows copious amounts of retained stool throughout the colon. You will need to take medications to help move the stool along (MOM, Laxative, enema, etc...). 2. Increase your fluids. You can alternate Tylenol and ibuprofen as needed for pain management. 3. We encourage you to follow up with your primary care provider and/or recommended specialist in the next few days for re-evaluation and further care/management. If your symptoms should worsen, new symptoms develop or any of the signs and symptoms we discussed should arise please return to the emergency room or call 911 (if needed). Definitive disposition and diagnosis as appropriate pending reevaluation and review of above. Upper abdomen Pain Score (Numeric/FACES): 8 - Related Data Allergies Allergy/AdvReac Type Severity Reaction Status Date / Time No Known Allergies Allergy Verified 07/26/20 14:49 Home Meds: Home Meds ALPRAZolam [Xanax] 2 mg PO TID 05/29/18 [History] Albuterol/Ipratropium [Combivent Respimat] 1 puff IH QID PRN 05/29/18 [History] busPIRone [Buspar] 15 mg PO BID 11/04/18 [History] Ondansetron [Zofran ODT] 4 mg PO Q6H PRN 08/04/19 [History] Rosuvastatin [Crestor] 5 mg PO BEDTIME 08/04/19 [History] Ipratropium/Albuterol Sulfate [Iprat-Albut 0.5-3(2.5) MG/3 ML] 3 ml NEB Q6HR 02/09/20 [History] Docusate Sodium [Colace] 100 mg PO BID cap 02/22/20 [Rx] Fluticasone Propionate [Flonase] 1 spr NASBOTH DAILY bottle 02/22/20 [Rx] Gabapentin [Neurontin] 300 mg PO TID 05/08/20 [History] Budesonide [Pulmicort] 1 dose NEB DAILY 07/26/20 [History] Nitrofurantoin Monohyd/M-Cryst [Macrobid 100 mg Capsule] 100 mg PO BID 5 Days #10 capsule 07/26/20 [Rx] Past Medical History - Past Health History Medical/Surgical History: Denies Medical/Surgical History HEENT History: Reports: None Cardiovascular History: Reports: Heart Murmur 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 Respiratory History: Reports: COPD Other Respiratory History: emphsyema Gastrointestinal History: Reports: Bowel Obstruction, Diverticulosis, Other (See Below) Other Gastrointestinal History: Bowel obstruction 2010, 2018, perforated sigmoid diverticulitis status post colostomy (2018): Status post colostomy takedown (September 2019), status post appendectomy Genitourinary History: Reports: None [employer] History: Reports: Other [employer] History: 4X C-sections Musculoskeletal History: Reports: Arthritis Neurological History: Reports: None Psychiatric History: Reports: Anxiety, Depression, Panic Attack Endocrine/Metabolic History: Reports: None Hematologic History: Reports: Blood Transfusion(s) Immunologic History: Reports: None Oncologic (Cancer) History: Reports: None Dermatologic History: Reports: None - Infectious Disease History Infectious Disease History: Reports: Chicken Pox, Measles, Mumps, Rubella - Past Surgical History Head Surgeries/Procedures: Reports: None HEENT Surgical History: Reports: Tonsillectomy Cardiovascular Surgical History: Reports: Cardiac Ablation Respiratory Surgical History: Reports: None GI Surgical History: Reports: Appendectomy, Colonoscopy, Colostomy, Other (See Below) Other GI Surgeries/Procedures: Colostomy: reversed in [place] Female Surgical History: Reports: Section, Tubal Ligation Endocrine Surgical History: Reports: None Neurological Surgical History: Reports: None Musculoskeletal Surgical History: Reports: None Oncologic Surgical History: Reports: None Dermatological Surgical History: Reports: None Social & Family History - Family History Family Medical History: Noncontributory - Caffeine Use Caffeine Use: Reports: Coffee Other Caffeine Use: 3cups/day Caffeine Use Comment: 1/2 cup each day - Recreational Drug Use Recreational Drug Use: No ED ROS GENERAL - Review of Systems Review Of Systems: Comprehensive ROS is negative, except as noted in HPI. ED EXAM, GI/ABD - Physical Exam Exam: See Below (See dictation) Course - Vital Signs Last Recorded V/S: Last Vital Signs Temp 97.4 F 07/26/20 14:53 Pulse 96 07/26/20 17:51 Resp 16 07/26/20 17:51 BP 111/66 07/26/20 17:51 Pulse Ox 96 07/26/20 17:51 - Orders/Labs/Meds Orders: Active Orders 24 hr Category Date Time Status CULTURE URINE [RM] Stat Lab 07/26/20 17:05 Received Labs: Laboratory Tests 07/26/20 07/26/20 07/26/20 Range/Units 15:25 15:25 17:05 WBC 7.69 (4.0-11.0) K/uL RBC 4.32 (4.30-5.90) M/uL Hgb 13.0 (12.0-16.0) g/dL Hct 40.0 (36.0-46.0) % MCV 92.6 (80.0-98.0) fL MCH 30.1 (27.0-32.0) pg MCHC 32.5 (31.0-37.0) g/dL RDW Std Deviation 43.4 (28.0-62.0) fl RDW Coeff of Shaq 13 (11.0-15.0) % Plt Count 215 (150-400) K/uL MPV 9.90 (7.40-12.00) fL Neut % (Auto) 63.4 (48.0-80.0) % Lymph % (Auto) 23.3 (16.0-40.0) % [place] % (Auto) 10.7 (0.0-15.0) % Eos % (Auto) 2.3 (0.0-7.0) % Baso % (Auto) 0.3 (0.0-1.5) % Neut # (Auto) 4.9 (1.4-5.7) K/uL Lymph # (Auto) 1.8 (0.6-2.4) K/uL [place] # (Auto) 0.8 (0.0-0.8) K/uL Eos # (Auto) 0.2 (0.0-0.7) K/uL Baso # (Auto) 0.0 (0.0-0.1) K/uL Nucleated RBC % 0.0 /100WBC Nucleated RBCs # 0 K/uL Sodium 141 (136-145) mmol/L Potassium 4.1 (3.5-5.1) mmol/L Chloride 104 (98-107) mmol/L Carbon Dioxide 28.3 (21.0-32.0) mmol/L BUN 18 (7.0-18.0) mg/dL Creatinine 0.8 (0.6-1.0) mg/dL Est Cr Clr Drug Dosing 74.03 mL/min Estimated GFR (MDRD) > 60.0 ml/min Glucose 88 (74-106) mg/dL Calcium 9.4 (8.5-10.1) mg/dL Total Bilirubin 0.8 (0.2-1.0) mg/dL AST 25 (15-37) IU/L ALT 37 (14-63) IU/L Alkaline Phosphatase 72 (46-116) U/L Total Protein 7.7 (6.4-8.2) g/dL Albumin 4.2 (3.4-5.0) g/dL Globulin 3.5 (2.6-4.0) g/dL Albumin/Globulin Ratio 1.2 (0.9-1.6) Lipase 53 L (73-393) U/L Urine Color YELLOW Urine Appearance CLEAR Urine pH 7.0 (5.0-8.0) Ur Specific [place] <= 1.005 (1.001-1.035) Urine Protein NEGATIVE (NEGATIVE) mg/dL Urine Glucose (UA) NEGATIVE (NEGATIVE) mg/dL Urine Ketones NEGATIVE (NEGATIVE) mg/dL Urine Occult Blood SMALL H (NEGATIVE) Urine Nitrite NEGATIVE (NEGATIVE) Urine Bilirubin NEGATIVE (NEGATIVE) Urine Urobilinogen 0.2 (<2.0) EU/dL Ur Leukocyte Esterase SMALL H (NEGATIVE) Urine RBC 1-2 (0-2/HPF) Urine WBC 3-5 (0-5/HPF) Ur Epithelial Cells OCCASIONAL (NONE-FEW) Urine Bacteria 1+ H (NEGATIVE) Meds: Medications Discontinued Medications Generic Name Dose Route Start Last Admin Trade Name Freq PRN Reason Stop Dose Admin Sodium Chloride 1,000 mls @ 999 mls/hr 07/26/20 15:24 07/26/20 15:37 Normal Saline IV 07/26/20 16:24 999 mls/hr STAT ONE Administration Iopamidol 100 ml 07/26/20 16:27 07/26/20 16:33 Isovue-370 (76%) IVPUSH 07/26/20 16:28 100 ml ONETIME STA Administration Magnesium Citrate 1 ml 07/26/20 17:39 07/26/20 17:51 Citrate Of Magnesia PO 07/26/20 17:40 1 ml ONETIME ONE Administration Magnesium Hydroxide 30 ml 07/26/20 17:20 07/26/20 17:51 Milk Of Magnesia PO 07/26/20 17:21 30 ml ONETIME ONE Administration Morphine Sulfate 2 mg 07/26/20 15:24 07/26/20 15:38 Morphine IVPUSH 07/26/20 15:25 2 mg ONETIME ONE Administration Morphine Sulfate 4 mg 07/26/20 16:36 07/26/20 16:49 Morphine IVPUSH 07/26/20 16:37 4 mg ONETIME ONE Administration Ondansetron HCl 4 mg 07/26/20 15:24 07/26/20 15:37 Zofran IVPUSH 07/26/20 15:25 4 mg ONETIME ONE Administration Departure - Departure Time of Disposition: 17:25 Disposition: Home, Self-Care 01 Clinical Impression: UTI, Urinary tract infectious disease Constipation Qualifiers: Constipation type: unspecified constipation type Qualified Code(s): K59.00 - Constipation, unspecified - Discharge Information Instructions: Constipation, Adult, [id number] Referrals: Yaw Loza MD [Primary Care Provider] - Forms: ED Department Discharge Additional Instructions: The following information is given to patients seen in the emergency department who are being discharged to home. This information is to outline your options for follow-up care. We provide all patients seen in our emergency department with a follow-up referral. The need for follow-up, as well as the timing and circumstances, are variable depending upon the specifics of your emergency department visit. If you don't have a primary care physician on staff, we will provide you with a referral. We always advise you to contact your personal physician following an emergency department visit to inform them of the circumstance of the visit and for follow-up with them and/or the need for any referrals to a consulting specialist. The emergency department will also refer you to a specialist when appropriate. This referral assures that you have the opportunity for follow-up care with a specialist. All of these measure are taken in an effort to provide you with optimal care, which includes your follow-up. Under all circumstances we always encourage you to contact your private physician who remains a resource for coordinating your care. When calling for follow-up care, please make the office aware that this follow-up is from your recent emergency room visit. If for any reason you are refused follow-up, please contact the [facility] Emergency Department at and asked to speak to the emergency department charge nurse. [facility] [address] [place] [id number] [address] Thank you for choosing the [facility] emergency department in [address] for your medical needs today. It was a pleasure caring for you. Today you were seen in the emergency department for abdominal pain. 1. Today your CT shows copious amounts of retained stool throughout the colon. You will need to take medications to help move the stool along (MOM, Laxative, enema, etc...). 2. Increase your fluids. You can alternate Tylenol and ibuprofen as needed for pain management. 3. We encourage you to follow up with your primary care provider and/or recommended specialist in the next few days for re-evaluation and further care/management. If your symptoms should worsen, new symptoms develop or any of the signs and symptoms we discussed should arise please return to the emergency room or call 911 (if needed). Sepsis Event Note (ED) - Evaluation Sepsis Screening Result: No Definite Risk - Focused Exam Vital Signs: Vital Signs Temp Pulse Resp BP Pulse Ox 07/26/20 17:51 96 16 111/66 96 07/26/20 16:51 89 16 114/72 98 07/26/20 14:53 97.4 F 106 H 18 125/73 96 - My Orders Last 24 Hours: My Active Orders 07/26/20 17:05 CULTURE URINE [RM] Stat - Assessment/Plan Last 24 Hours: My Active Orders 07/26/20 17:05 CULTURE URINE [RM] Stat
[2020-07-26] MEDS ORDERED: Iopamidol 755 Mg/ML 100 ML Bottle IVPUSH STA (16:27)
[2020-07-26] MEDS ORDERED: Morphine 4 MG/ML Syringe IVPUSH ONE (16:36)
--- NOTE | 2020-07-26 16:56 | CT ---
INDICATION: Abdominal pain. COMPARISON: CT abdomen and pelvis with intravenous contrast June 12, 2020. TECHNIQUE: CT abdomen and pelvis with intravenous contrast; coronal and sagittal reformats. FINDINGS: No abnormal intra pulmonary nodular densities through the lung bases. Bullous disease lung bases. No evidence of pleural effusion. Normal size cardiac silhouette without any evidence of pericardial effusion. Augmentation mammoplasty on the right. No focal hepatic or splenic pathology. No pancreatic pathology. Gallbladder is unremarkable. No adrenal pathology. No kidney stones or obstructive uropathy. No retroperitoneal lymphadenopathy. Status post resection sigmoid colon with end-to-end anastomosis. Markedly redundant colon filled with copious amounts of retained stool throughout. Normal appendix. Splenic vein, superior mesenteric vein and the portal vein are unremarkable. IMPRESSION: 1. Copious amounts of retained stool throughout the redundant colon. 2. Status post resection sigmoid colon with end-to-end anastomosis. 3. Negative CT abdomen and pelvis with intravenous contrast otherwise. Please note that all CT scans at this facility use dose modulation, iterative reconstruction, and/or weight-based dosing when appropriate to reduce radiation dose to as low as reasonably achievable. Dictated by Jim Garrett MD @ Jul 26 2020 4:50PM Signed by Dr. Jim Garrett @ Jul 26 2020 4:55PM
[2020-07-26] MEDS ORDERED: Magnesium Hydroxide 400 MG/5 ML Susp 30 ML Cup PO ONE (17:20)
[2020-07-26] MEDS ORDERED: Magnesium Citrate Solution 296 ML Bottle PO ONE (17:39)
[2020-07-26] MEDS ORDERED: Nitrofurantoin Monohydrate/Macrocrystalline 100 MG Cap ONE (17:54)
[2020-07-26] MEDS ORDERED: Nitrofurantoin Monohydrate/Macrocrystalline 100 MG Cap PO ONE (17:57)
== END 2020-07-26 18:01 | disposition home or self-care (01) ==
LOC: MW.ED 14:42
DX: K59.00 Constipation, unspecified (principal); N39.0 Urinary tract infection, site not specified; J44.9 Chronic obstructive pulmonary disease, unspecified; F41.9 Anxiety disorder, unspecified; F32.9 Major depressive disorder, single episode, unspecified; Z79.899 Other long term (current) drug therapy
CPT/HCPCS: 36415; 74177; 80053; 81001; 83690; 85025; 87086; 96374; 96375; 96376; 99284; A9270; J2270; J2405; J7030; Q9967; 99283

== ENCOUNTER 2020-11-26 11:43 | Emergency (ER) | payer MEDICARE, OTHER ==
--- NOTE | 2020-11-26 11:55 | EDM.PDOC ---
ED HPI GENERAL MEDICAL PROBLEM - General Chief Complaint: Abdominal Pain Stated Complaint: UNK Time Seen by Provider: 11/26/20 11:54 Source of Information: Reports: Patient History Limitations: Reports: No Limitations - History of Present Illness INITIAL COMMENTS - FREE TEXT/NARRATIVE: HISTORY AND PHYSICAL: History of present illness: Patient is a 60-year-old female who presents to the emergency room with complaints of nausea and abdominal pain x1 week. Past medical history of perforated sigmoid diverticulitis requiring colostomy in 2008, complicated by parastomal hernia, status post revision in September 2019. She has had multiple small bowel obstructions, chronic constipation, chronic abdominal pain, hyperlipidemia, anxiety, depression and COPD. She states over the past week she has had the sensation that she could be constipated, has not had a satisfactory bowel movement over the past 1 week. She has tried prune juice, MiraLAX, milk of magnesia and 3 fleets enemas without any results. Patient denies any fever, chills, headache, change in vision, syncope or near syncope. Denies any chest pain, back pain, shortness of breath or cough. Denies any vomiting, dysuria, nor any blood in urine or stool. Patient has been eating and drinking appropriately. Review of systems: As per history of present illness and below otherwise all systems reviewed and negative. Past medical history: As per history of present illness and as reviewed below otherwise noncontributory. Surgical history: As per history of present illness and as reviewed below otherwise noncon tributory. Social history: See social history for further information Family history: As per history of present illness and as reviewed below otherwise noncontributory. Physical exam: General: Well developed and well nourished 60 year old female. Alert and orientated x 3. Nontoxic in appearance and in no acute distress. Vital signs are stable and have been reviewed by me. Nursing notes were reviewed. HEENT: Atraumatic, normocephalic, pupils equal and reactive bilaterally, negative for conjunctival pallor or scleral icterus, mucous membranes moist, TMs normal bilaterally, throat clear, neck supple, nontender, trachea midline. No drooling or trismus noted. No meningeal signs. No hot potato voice noted. Lungs: Clear to auscultation bilaterally. No wheezes, rales, or rhonchi. Chest nontender. Normal work of breathing, no accessory muscles used. Heart: S1S2, regular rate and rhythm without overt murmur, gallops, or rubs. No JVD. No peripheral edema Abdomen: Soft, nondistended, generalized diffuse tenderness in all 4 quadrants. Hypoactive bowel sounds. Negative for masses or costovertebral tenderness. Genitourinary/Rectal: Deferred. Skin: Intact, warm, dry. No lesions or rashes noted. Hematologic: No petechiae or purpra. Mucosa appropriate color and normal nail bed color and refill. Extremities: Atraumatic, moves all extremities per self without difficulty or deficits, negative for cords or calf pain. Neurovascular unremarkable. Neuro: Awake, alert, oriented. Cranial nerves II through XII unremarkable. Cerebellum unremarkable. Motor and sensory unremarkable throughout. Exam nonfocal. Psychiatric: Mood and affect are appropriate. Normal thought process. Answering questions appropriately. Notes: *This patient was seen and evaluated during the 2019 SARS-CoV-2 novel co ronavirus pandemic period. Community viral transmission is ongoing at time of this encounter and the emergency department is operating under pandemic response procedures. Lab work is unremarkable. CT shows large amount of stool identified within the colon. Borderline hepatomegaly. Postoperative change at the level of the sigmoid colon. There is no bowel wall thickening. No free air or free fluid noted. I have talked with the patient about today's findings, in addition to providing specific details for plan of care. We discussed doing an enema while here in the ED. She is agreeable. VSS. Good results of enema. Feels improved. Reassessment at the time of disposition demonstrates that the patient is in no acute distress. The patient is stable for discharge, counseling was provided and we discussed in great detail signs and symptoms that would prompt them to return to the Emergency Department. Medication, follow up and supportive care measures were reviewed and discussed. Voices understanding and is agreeable to plan of care. Denies any further questions or concerns at this time. Diagnostics: CBC, CMP, UA, Lipase, CT abd/pelvis Therapeutics: IV fluids, Zofran, Morphine Prescription: None Impression: Constipation Plan: 1. You were evaluated today on an emergent basis. Your CT shows no evidence of obstruction. You do have a large amount of stool in the colon. Please continue with Colace and Miralax at home. 2. You can alternate Tylenol and ibuprofen as needed for pain and fever management. 3. We encourage you to follow up with your primary care provider and/or GI specialist in the next few days for re-evaluation and further care/management. 4. If your symptoms should worsen, new symptoms develop or any of the signs and symptoms we discussed should arise please return to the emergency room or call 911 (if needed). Definitive disposition and diagnosis as appropriate pending reevaluation and review of above. abdomen Pain Score (Numeric/FACES): 7 - Related Data Allergies Allergy/AdvReac Type Severity Reaction Status Date / Time No Known Allergies Allergy Verified 11/26/20 11:59 Home Meds: Home Meds ALPRAZolam [Xanax] 2 mg PO TID 05/29/18 [History] Albuterol/Ipratropium [Combivent Respimat] 1 puff IH QID PRN 05/29/18 [History] busPIRone [Buspar] 15 mg PO BID 11/04/18 [History] Ondansetron [Zofran ODT] 4 mg PO Q6H PRN 08/04/19 [History] Rosuvastatin [Crestor] 5 mg PO BEDTIME 08/04/19 [History] Ipratropium/Albuterol Sulfate [Iprat-Albut 0.5-3(2.5) MG/3 ML] 3 ml NEB Q6HR 02/09/20 [History] Docusate Sodium [Colace] 100 mg PO BID cap 02/22/20 [Rx] Fluticasone Propionate [Flonase] 1 spr NASBOTH DAILY bottle 02/22/20 [Rx] Gabapentin [Neurontin] 300 mg PO TID 05/08/20 [History] Budesonide [Pulmicort] 1 dose NEB DAILY 07/26/20 [History] Nitrofurantoin Monohyd/M-Cryst [Macrobid 100 mg Capsule] 100 mg PO BID 5 Days #10 capsule 07/26/20 [Rx] Past Medical History - Past Health History Medical/Surgical History: Denies Medical/Surgical History HEENT History: Reports: None Cardiovascular History: Reports: Heart Murmur 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 Respiratory History: Reports: COPD Other Respiratory History: emphsyema Gastrointestinal History: Reports: Bowel Obstruction, Diverticulosis, Other (See Below) Other Gastrointestinal History: Bowel obstruction 2010, 2018, perforated sigmoid diverticulitis status post colostomy (2019): Status post colostomy takedown (September 2019), status post appendectomy Genitourinary History: Reports: None [employer] History: Reports: Other [employer] FINISHER History: 4X C-sections Musculoskeletal History: Reports: Arthritis Neurological History: Reports: None Psychiatric History: Reports: Anxiety, Depression, Panic Attack Endocrine/Metabolic History: Reports: None Hematologic History: Reports: Blood Transfusion(s) Immunologic History: Reports: None Oncologic (Cancer) History: Reports: None Dermatologic History: Reports: None - Infectious Disease History Infectious Disease History: Reports: Chicken Pox, Measles, Mumps, Rubella - Past Surgical History Head Surgeries/Procedures: Reports: None HEENT Surgical History: Reports: Tonsillectomy Cardiovascular Surgical History: Reports: Cardiac Ablation Respiratory Surgical History: Reports: None GI Surgical History: Reports: Appendectomy, Colonoscopy, Colostomy, Other (See Below) Other GI Surgeries/Procedures: Colostomy: reversed in [place] Female Surgical History: Reports: Section, Tubal Ligation Endocrine Surgical History: Reports: None Neurological Surgical History: Reports: None Musculoskeletal Surgical History: Reports: None Oncologic Surgical History: Reports: None Dermatological Surgical History: Reports: None Social & Family History - Family History Family Medical History: No Pertinent Family History - Caffeine Use Caffeine Use: Reports: Coffee Other Caffeine Use: 3cups/day Caffeine Use Comment: 1/2 cup each day ED ROS GENERAL - Review of Systems Review Of Systems: Comprehensive ROS is negative, except as noted in HPI. ED EXAM, RENAL/ - Physical Exam Exam: See Below (See dictation) Course - Vital Signs Last Recorded V/S: Last Vital Signs Temp 97.2 F 11/26/20 11:49 Pulse 95 11/26/20 11:49 Resp 18 11/26/20 11:49 BP 150/85 H 11/26/20 11:49 Pulse Ox 98 11/26/20 11:49 - Orders/Labs/Meds Orders: Active Orders 24 hr Category Date Time Status Enema [RC] ASDIRECTED Care 11/26/20 14:36 Active Sodium Chloride 0.9% [Normal Saline] 1,000 ml Med 11/26/20 11:58 Active IV STAT Sodium Chloride 0.9% [Saline Flush] Med 11/26/20 11:58 Active 10 ml FLUSH ASDIRECTED PRN Sodium Chloride 0.9% [Saline Flush] Med 11/26/20 11:58 Active 2.5 ml FLUSH ASDIRECTED PRN Saline Lock Insert [OM.PC] Stat Oth 11/26/20 11:58 Ordered Medication Orders Sodium Chloride (Normal Saline) 1,000 mls @ 150 mls/hr IV STAT ONE Stop: 11/26/20 18:37 Last Admin: 11/26/20 12:14 Dose: 150 mls/hr Documented by: ERVIN Sodium Chloride (Saline Flush) 10 ml FLUSH ASDIRECTED PRN PRN Reason: Keep Vein Open Last Admin: 11/26/20 12:21 Dose: 10 ml Documented by: ERVIN Sodium Chloride (Saline Flush) 2.5 ml FLUSH ASDIRECTED PRN PRN Reason: Keep Vein Open Last Admin: 11/26/20 12:21 Dose: 2.5 ml Documented by: ERVIN Labs: Laboratory Tests 11/26/20 11/26/20 11/26/20 Range/Units 12:09 12:09 12:30 WBC 4.77 (4.0-11.0) K/uL RBC 3.99 L (4.30-5.90) M/uL Hgb 12.0 (12.0-16.0) g/dL Hct 37.0 (36.0-46.0) % MCV 92.7 (80.0-98.0) fL MCH 30.1 (27.0-32.0) pg MCHC 32.4 (31.0-37.0) g/dL RDW Std Deviation 43.9 (28.0-62.0) fl RDW Coeff of Shaq 13 (11.0-15.0) % Plt Count 215 (150-400) K/uL MPV 9.80 (7.40-12.00) fL Neut % (Auto) 52.9 (48.0-80.0) % Lymph % (Auto) 34.8 (16.0-40.0) % Whiteside % (Auto) 8.6 (0.0-15.0) % Eos % (Auto) 3.1 (0.0-7.0) % Baso % (Auto) 0.6 (0.0-1.5) % Neut # (Auto) 2.5 (1.4-5.7) K/uL Lymph # (Auto) 1.7 (0.6-2.4) K/uL Whiteside # (Auto) 0.4 (0.0-0.8) K/uL Eos # (Auto) 0.2 (0.0-0.7) K/uL Baso # (Auto) 0.0 (0.0-0.1) K/uL Nucleated RBC % 0.0 /100WBC Nucleated RBCs # 0 K/uL Sodium 141 (136-145) mmol/L Potassium 4.2 (3.5-5.1) mmol/L Chloride 106 (98-107) mmol/L Carbon Dioxide 28.6 (21.0-32.0) mmol/L BUN 13 (7.0-18.0) mg/dL Creatinine 0.8 (0.6-1.0) mg/dL Est Cr Clr Drug Dosing 76.20 mL/min Estimated GFR (MDRD) > 60.0 ml/min Glucose 96 (74-106) mg/dL Calcium 9.1 (8.5-10.1) mg/dL Total Bilirubin 0.5 (0.2-1.0) mg/dL AST 14 L (15-37) IU/L ALT 17 (14-63) IU/L Alkaline Phosphatase 66 (46-116) U/L Total Protein 7.4 (6.4-8.2) g/dL Albumin 3.9 (3.4-5.0) g/dL Globulin 3.5 (2.6-4.0) g/dL Albumin/Globulin Ratio 1.1 (0.9-1.6) Lipase 56 L (73-393) U/L Urine Color YELLOW Urine Appearance CLEAR Urine pH 6.5 (5.0-8.0) Ur Specific [place] 1.015 (1.001-1.035) Urine Protein NEGATIVE (NEGATIVE) mg/dL Urine Glucose (UA) NEGATIVE (NEGATIVE) mg/dL Urine Ketones NEGATIVE (NEGATIVE) mg/dL Urine Occult Blood NEGATIVE (NEGATIVE) Urine Nitrite NEGATIVE (NEGATIVE) Urine Bilirubin NEGATIVE (NEGATIVE) Urine Urobilinogen 0.2 (<2.0) EU/dL Ur Leukocyte Esterase NEGATIVE (NEGATIVE) Meds: Medications Generic Name Dose Route Start Last Admin Trade Name Freq PRN Reason Stop Dose Admin Sodium Chloride 1,000 mls @ 150 mls/hr 11/26/20 11:58 11/26/20 12:14 Normal Saline IV 11/26/20 18:37 150 mls/hr STAT ONE Administration Sodium Chloride 10 ml 11/26/20 11:58 11/26/20 12:21 Saline Flush FLUSH 10 ml ASDIRECTED PRN Administration Keep Vein Open Sodium Chloride 2.5 ml 11/26/20 11:58 11/26/20 12:21 Saline Flush FLUSH 2.5 ml ASDIRECTED PRN Administration Keep Vein Open Discontinued Medications Generic Name Dose Route Start Last Admin Trade Name Freq PRN Reason Stop Dose Admin Iopamidol 100 ml 11/26/20 14:01 11/26/20 14:01 Isovue Multipack-370 (76%) IVPUSH 11/26/20 14:02 100 ml ONETIME ONE Administration Ketorolac Tromethamine 30 mg 11/26/20 17:06 11/26/20 17:24 Toradol IVPUSH 11/26/20 17:07 30 mg ONETIME ONE Administration Morphine Sulfate 2 mg 11/26/20 11:58 11/26/20 12:18 Morphine IVPUSH 11/26/20 11:59 2 mg ONETIME ONE Administration Morphine Sulfate 2 mg 11/26/20 13:47 11/26/20 13:57 Morphine IVPUSH 11/26/20 13:48 2 mg ONETIME ONE Administration Ondansetron HCl 4 mg 11/26/20 11:58 11/26/20 12:16 Zofran IVPUSH 11/26/20 11:59 4 mg ONETIME ONE Administration Departure - Departure Time of Disposition: 17:42 Disposition: Home, Self-Care 01 Clinical Impression: Constipation Qualifiers: Constipation type: unspecified constipation type Qualified Code(s): K59.00 - Constipation, unspecified - Discharge Information Instructions: Constipation, Adult, [id number] Referrals: Yaw Loza MD [Primary Care Provider] - Forms: ED Department Discharge Additional Instructions: The following information is given to patients seen in the emergency department who are being discharged to home. This information is to outline your options for follow-up care. We provide all patients seen in our emergency department with a follow-up referral. The need for follow-up, as well as the timing and circumstances, are variable depending upon the specifics of your emergency department visit. If you don't have a primary care physician on staff, we will provide you with a referral. We always advise you to contact your personal physician following an emergency department visit to inform them of the circumstance of the visit and for follow-up with them and/or the need for any referrals to a consulting specialist. The emergency department will also refer you to a specialist when appropriate. This referral assures that you have the opportunity for follow-up care with a specialist. All of these measure are taken in an effort to provide you with optimal care, which includes your follow-up. Under all circumstances we always encourage you to contact your private physician who remains a resource for coordinating your care. When calling for follow-up care, please make the office aware that this follow-up is from your recent emergency room visit. If for any reason you are refused follow-up, please contact the [facility] Emergency Department at and asked to speak to the emergency department charge nurse. [facility] [address] [place] [id number] [place] [address] Thank you for choosing the [facility] emergency department in [place] for your medical needs today. It was a pleasure caring for you. Today you were seen in the emergency department for constipation. 1. You were evaluated today on an emergent basis. Your CT shows no evidence of obstruction. You do have a large amount of stool in the colon. Please continue with Colace and Miralax at home. 2. You can alternate Tylenol and ibuprofen as needed for pain and fever management. 3. We encourage you to follow up with your primary care provider and/or GI specialist in the next few days for re-evaluation and further care/management. 4. If your symptoms should worsen, new symptoms develop or any of the signs and symptoms we discussed should arise please return to the emergency room or call 911 (if needed). Sepsis Event Note (ED) - Focused Exam Vital Signs: Vital Signs Temp Pulse Resp BP Pulse Ox 11/26/20 11:49 97.2 F 95 18 150/85 H 98 - My Orders Last 24 Hours: My Active Orders 11/26/20 11:58 Sodium Chloride 0.9% [Normal Saline] 1,000 ml IV STAT Sodium Chloride 0.9% [Saline Flush] 10 ml FLUSH ASDIRECTED PRN Sodium Chloride 0.9% [Saline Flush] 2.5 ml FLUSH ASDIRECTED PRN Saline Lock Insert [OM.PC] Stat 11/26/20 14:36 Enema [RC] ASDIRECTED - Assessment/Plan Last 24 Hours: My Active Orders 11/26/20 11:58 Sodium Chloride 0.9% [Normal Saline] 1,000 ml IV STAT Sodium Chloride 0.9% [Saline Flush] 10 ml FLUSH ASDIRECTED PRN Sodium Chloride 0.9% [Saline Flush] 2.5 ml FLUSH ASDIRECTED PRN Saline Lock Insert [OM.PC] Stat 11/26/20 14:36 Enema [RC] ASDIRECTED
[2020-11-26] MEDS ORDERED: Sodium Chloride 0.9% 2.5 ML Syringe FLUSH PRN (11:58)
[2020-11-26] MEDS ORDERED: Sodium Chloride 0.9% 1,000 ML IV ONE (11:58)
[2020-11-26] MEDS ORDERED: Sodium Chloride 0.9% 10 ML Syringe FLUSH PRN (11:58)
[2020-11-26] MEDS ORDERED: Morphine 2 MG/ML SYRINGE IVPUSH ONE ×2 (11:58→13:47)
[2020-11-26] MEDS ORDERED: Ondansetron 4 MG/2 ML SDV IVPUSH ONE (11:58)
[2020-11-26 12:46] LABS: BLOOD UREA NITROGEN,BUN 13 mg/dL (7.0-18.0); CARBON DIOXIDE,CO2 28.6 mmol/L (21.0-32.0); CHLORIDE,CL 106 mmol/L (98-107); GLUCOSE RANDOM 96 mg/dL (74-106); LIPASE 56 U/L (73-393); POTASSIUM,K 4.2 mmol/L (3.5-5.1); SODIUM,NA 141 mmol/L (136-145)
[2020-11-26] MEDS ORDERED: Iopamidol 755 MG/ML 500 ML Multipack Bottle IVPUSH ONE (14:01)
--- NOTE | 2020-11-26 14:29 | CT ---
Indication: Upper abdominal pain. Technique: Multiple contiguous axial images were obtained from the lung bases through the symphysis pubis after the intravenous administration of 100 cc Isovue 370. Please note that all CT scans at this facility use dose modulation, iterative reconstruction, and/or weight-based dosing when appropriate to reduce radiation dose to as low as reasonably achievable. Comparison: July 26, 2020. Findings: A right breast implant is identified. The heart is normal in size. No pericardial effusion is identified. The lung bases are clear. Emphysematous changes of the lung bases are identified. Eventration of the left hemidiaphragm is identified. The liver, gallbladder, spleen, pancreas, adrenals, and kidneys are normal. No intrahepatic biliary ductal dilatation is identified. No hydronephrosis is identified. Mild vascular calcifications of the aorta identified. The aorta is normal in caliber. The liver is borderline in size measuring 13.5 centimeters in maximum dimension. In the pelvis, the urinary bladder is normal. The uterus is grossly normal. The small and large bowel are normal in caliber. A large amount of stool is identified within the colon. Postoperative changes are identified at the sigmoid colon. No free air or free fluid is identified within the abdomen or pelvis. Minimal nonspecific inflammatory changes are identified in the right lower quadrant around the cecum. However, no bowel wall thickening is identified. No appendix is identified. However, these minimal inflammatory changes do not appear to represent an appendicitis. Degenerative changes of the spine. Limbus vertebrae identified at L3. Impression: Large amount of stool identified within the colon. Borderline hepatomegaly. Postoperative change at the level of the sigmoid colon. Please note that all CT scans at this facility use dose modulation, iterative reconstruction, and/or weight-based dosing when appropriate to reduce radiation dose to as low as reasonably achievable. Dictated by Kerry Perez MD @ Nov 26 2020 2:17PM Signed by Dr. Kerry Perez @ Nov 26 2020 2:27PM
[2020-11-26] MEDS ORDERED: Ketorolac 30 MG/ML SDV IVPUSH ONE (17:06)
[2020-11-26] MEDS ORDERED: Magnesium Citrate Solution 296 ML Bottle PO ONE (18:21)
== END 2020-11-26 18:30 | disposition home or self-care (01) ==
LOC: MW.ED 11:43
DX: K59.00 Constipation, unspecified (principal); E78.5 Hyperlipidemia, unspecified; J43.9 Emphysema, unspecified; Z79.899 Other long term (current) drug therapy
CPT/HCPCS: 36415; 74177; 80053; 81003; 83690; 85025; 96374; 96375; 96376; 99284; A9270; J1885; J2270; J2405; J7030; Q9967; 99283

== ENCOUNTER 2021-02-22 17:44 | Emergency (ER) | payer MEDICARE, OTHER ==
[2021-02-22] MEDS ORDERED: Sodium Chloride 0.9% 1,000 ML IV ONE (18:45)
[2021-02-22] MEDS ORDERED: Sodium Chloride 0.9% 2.5 ML Syringe FLUSH PRN (18:47)
[2021-02-22] MEDS ORDERED: Sodium Chloride 0.9% 10 ML Syringe FLUSH PRN (18:47)
[2021-02-22] MEDS ORDERED: HYDROmorphone 1 MG/ML Syringe IVPUSH ONE (19:00)
[2021-02-22] MEDS ORDERED: Ondansetron 4 MG/2 ML SDV IVPUSH ONE (19:00)
[2021-02-22 19:43] LABS: BLOOD UREA NITROGEN,BUN 15 mg/dL (7.0-18.0); CARBON DIOXIDE,CO2 28.7 mmol/L (21.0-32.0); CHLORIDE,CL 104 mmol/L (98-107); GLUCOSE RANDOM 100 mg/dL (74-106); POTASSIUM,K 4.2 mmol/L (3.5-5.1); SODIUM,NA 140 mmol/L (136-145)
[2021-02-22] MEDS ORDERED: Iopamidol 755 MG/ML 500 ML Multipack Bottle IVPUSH STA (20:18)
--- NOTE | 2021-02-22 21:30 | EDM.PDOC ---
<Tree Wiseman - Last Filed: 02/22/21 22:56> ED HPI GENERAL MEDICAL PROBLEM - General Chief Complaint: Abdominal Pain Stated Complaint: BOWEL OBSTRUCTION Time Seen by Provider: 02/22/21 17:52 - Related Data Allergies Allergy/AdvReac Type Severity Reaction Status Date / Time No Known Allergies Allergy Verified 02/22/21 18:43 Home Meds: Home Meds ALPRAZolam [Xanax] 2 mg PO TID 05/29/18 [History] Albuterol/Ipratropium [Combivent Respimat] 1 puff IH QID PRN 05/29/18 [History] busPIRone [Buspar] 15 mg PO BID 11/04/18 [History] Ondansetron [Zofran ODT] 4 mg PO Q6H PRN 08/04/19 [History] Rosuvastatin [Crestor] 5 mg PO BEDTIME 08/04/19 [History] Ipratropium/Albuterol Sulfate [Iprat-Albut 0.5-3(2.5) MG/3 ML] 3 ml NEB Q6HR 02/09/20 [History] Docusate Sodium [Colace] 100 mg PO BID cap 02/22/20 [Rx] Fluticasone Propionate [Flonase] 1 spr NASBOTH DAILY bottle 02/22/20 [Rx] Gabapentin [Neurontin] 300 mg PO TID 05/08/20 [History] Budesonide [Pulmicort] 1 dose NEB DAILY 07/26/20 [History] Nitrofurantoin Monohyd/M-Cryst [Macrobid 100 mg Capsule] 100 mg PO BID 5 Days #10 capsule 07/26/20 [Rx] Departure - Departure Time of Disposition: 22:56 Disposition: Home, Self-Care 01 Condition: Good Clinical Impression: Abdominal pain Constipation Qualifiers: Constipation type: unspecified constipation type Qualified Code(s): K59.00 - Constipation, unspecified - Discharge Information Instructions: Constipation, Adult, Abdominal Pain, Adult, [id number] Referrals: Yaw Loza MD [Primary Care Provider] - Forms: ED Department Discharge Additional Instructions: Take magnesium citrate 1 bottle and tons of liquids followed by 1 bottle in 10 to 14 hours in terms of liquids. He can try a high retention enema with an enema bag available at medical supply store like [employer]. Jaden pain medicine other than Tylenol may cause constipation to be worse. You need a colonoscopy which can be performed by her surgeons but if you can see a college hire in [place] or [place] they might be able to help more with the diagnosis and plans for future avoidance of small bowel obstruction. [facility] - General Surgery Professional Building [address] [facility] [address], [address] [place] [address] [facility] [address] [place] [address] [facility] [address] [place] [id number] The following information is given to patients seen in the emergency department who are being discharged to home. This information is to outline your options for follow-up care. We provide all patients seen in our emergency department with a follow-up referral. The need for follow-up, as well as the timing and circumstances, are variable depending upon the specifics of your emergency department visit. If you don't have a primary care physician on staff, we will provide you with a referral. We always advise you to contact your personal physician following an emergency department visit to inform them of the circumstance of the visit and for follow-up with them and/or the need for any referrals to a consulting specialist. The emergency department will also refer you to a specialist when appropriate. This referral assures that you have the opportunity for follow-up care with a specialist. All of these measure are taken in an effort to provide you with optimal care, which includes your follow-up. Under all circumstances we always encourage you to contact your private physician who remains a resource for coordinating your care. When calling for follow-up care, please make the office aware that this follow-up is from your recent emergency room visit. If for any reason you are refused follow-up, please contact the [facility] Emergency Department at and asked to speak to the emergency department charge nurse. <Lucy Mehta - Last Filed: 02/23/21 10:06> ED HPI GENERAL MEDICAL PROBLEM - General Source of Information: Reports: Patient History Limitations: Reports: No Limitations - History of Present Illness INITIAL COMMENTS - FREE TEXT/NARRATIVE: HISTORY AND PHYSICAL: History of present illness: The patient is a 60-year-old female with a history of bowel obstruction which resulted in a colostomy. She had a reversal in September 2019 for the colostomy. The patient is presenting to the emergency room with 3 weeks of constipation. The patient states that she took an enema 3 days ago when she had small results with liquid brown stool. But every time she tries to have a bowel movement it is just a liquid. Patient states that she took an enema yesterday and again just had brown liquid stool. She states that she is unable to eat or drink. She indicates her pain is in the left lower upper and mid abdomen. She denies a diagnosis of diverticulosis. The patient sees Dr. Cornelius the gastro enterologist in [place]. The patient denies any fever, chills, headache, change in vision, syncope or near syncope. Denies any chest pain, back pain, shortness of breath or cough. Denies any Has not noted any blood in urine or stool. In the emergency department the patient is hemodynamically stable with a pulse of 85 and a blood pressure of 140/65. She is afebrile with a temperature of 98. Review of systems: As per history of present illness and below otherwise all systems reviewed and negative. Past medical history: As per history of present illness and as reviewed below otherwise noncontributory. Surgical history: As per history of present illness and as reviewed below otherwise noncontributory. Social history: See social history for further information Family history: As per history of present illness and as reviewed below otherwise noncontributory. Physical exam: General: Well developed and well nourished. Alert and orientated x 3. Nontoxic in appearance and in no acute distress. Vital signs are stable and have been reviewed by me. Nursing notes were reviewed. HEENT: Atraumatic, normocephalic, pupils equal and reactive bilaterally, negative for conjunctival pallor or scleral icterus, mucous membranes moist, throat clear, neck supple, nontender, trachea midline. No drooling or trismus noted. No meningeal signs. No hot potato voice noted. Lungs: Clear to auscultation bilaterally. No wheezes, rales, or rhonchi. Chest nontender. Normal work of breathing, no accessory muscles used. Heart: S1S2, regular rate and rhythm without overt murmur, gallops, or rubs. No JVD. No peripheral edema Abdomen: Soft, nondistended, generalized tenderness. Normoactive bowel sounds. Negative for masses or costovertebral tenderness. Skin: Intact, warm, dry. No lesions or rashes noted. Hematologic: No petechiae or purpra. Mucosa appropriate color and normal nail be d color and refill. Extremities: Atraumatic, moves all extremities per self without difficulty or deficits, negative for cords or calf pain. Neurovascular unremarkable. Neuro: Awake, alert, oriented. Cranial nerves II through XII unremarkable. Cerebellum unremarkable. Motor and sensory unremarkable throughout. Exam nonfocal. Psychiatric: Mood and affect are appropriate. Normal thought process. Answering questions appropriately. Notes: *This patient was seen and evaluated during the 2019 SARS-CoV-2 novel coronavirus pandemic period. Community viral transmission is ongoing at time of this encounter and the emergency department is operating under pandemic response procedures. As stated above the patient is here with complaints of 3 weeks of constipation. She has a history of bowel obstructions and feels like this is a bowel obstruction or an ileus. The patient is agreeable to lab work, a abdominal CT, IV fluids, pain medication and antiemetic. 21: 30: The patient's IV was burning and required restarting. The nursing staff had difficulty placing an IV and her CT has been delayed. 22:[address] Wiseman. Diagnostics: CBC, CMP, UA, abdomen pelvis CT Therapeutics: Dilaudid, Zofran Definitive disposition and diagnosis as appropriate pending reevaluation and review of above. 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 Respiratory History: Reports: COPD Other Respiratory History: emphsyema;on home 02 at 1-2liters/min Gastrointestinal History: Reports: Bowel Obstruction, Diverticulosis, Other (See Below) Other Gastrointestinal History: Bowel obstruction 2010, 2018, perforated sigmoid diverticulitis status post colostomy (2018): Status post colostomy takedown (September 2019), status post appendectomy Genitourinary History: Reports: None 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: Reports: Other FLUORESCENT LAMP 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: 4X C-sections Musculoskeletal History: Reports: Arthritis Neurological History: Reports: None Psychiatric History: Reports: Anxiety, Depression, Panic Attack Endocrine/Metabolic History: Reports: None Hematologic History: Reports: Blood Transfusion(s) Immunologic History: Reports: None Oncologic (Cancer) History: Reports: None Dermatologic History: Reports: None - Infectious Disease History Infectious Disease History: Reports: Chicken Pox, Measles, Mumps, Novel Coronavirus, Rubella - Past Surgical History Head Surgeries/Procedures: Reports: None HEENT Surgical History: Reports: Tonsillectomy Cardiovascular Surgical History: Reports: Cardiac Ablation Other Cardiovascular Surgeries/Procedures: Cardiac ablation in 1991 Respiratory Surgical History: Reports: None GI Surgical History: Reports: Appendectomy, Colonoscopy, Colostomy, Other (See Below) Other GI Surgeries/Procedures: Colostomy: reversed in Sep Female Surgical History: Reports: Section, Tubal Ligation Endocrine Surgical History: Reports: None Neurological Surgical History: Reports: None Musculoskeletal Surgical History: Reports: None Oncologic Surgical History: Reports: None Dermatological Surgical History: Reports: None Social & Family History - Family History Family Medical History: No Pertinent Family History - Tobacco Use Tobacco Use Status *Q: Never Tobacco User - Caffeine Use Caffeine Use: Reports: None Other Caffeine Use: 3cups/day Caffeine Use Comment: 1/2 cup each day - Recreational Drug Use Recreational Drug Use: No ED ROS GENERAL - Review of Systems Review Of Systems: Comprehensive ROS is negative, except as noted in HPI. ED EXAM, GI/ABD - Physical Exam Exam: See Below (See dictation) Course - Vital Signs Last Recorded V/S: Last Vital Signs Temp 98 F 02/22/21 18:45 Pulse 98 02/22/21 23:15 Resp 20 02/22/21 23:15 BP 147/75 H 02/22/21 23:15 Pulse Ox 95 02/22/21 23:15 - Orders/Labs/Meds Orders: Active Orders 24 hr Category Date Time Status Saline Lock Insert [OM.PC] Stat Oth 02/22/21 18:47 Ordered Labs: Laboratory Tests 02/22/21 02/22/21 02/22/21 Range/Units 19:09 19:09 20:00 WBC 5.27 (4.0-11.0) K/uL RBC 4.11 L (4.30-5.90) M/uL Hgb 12.6 (12.0-16.0) g/dL Hct 38.2 (36.0-46.0) % MCV 92.9 (80.0-98.0) fL MCH 30.7 (27.0-32.0) pg MCHC 33.0 (31.0-37.0) g/dL RDW Std Deviation 45.1 (28.0-62.0) fl RDW Coeff of Shaq 13 (11.0-15.0) % Plt Count 217 (150-400) K/uL MPV 9.20 (7.40-12.00) fL Neut % (Auto) 54.6 (48.0-80.0) % Lymph % (Auto) 33.2 (16.0-40.0) % Towner % (Auto) 9.5 (0.0-15.0) % Eos % (Auto) 2.1 (0.0-7.0) % Baso % (Auto) 0.6 (0.0-1.5) % Neut # (Auto) 2.9 (1.4-5.7) K/uL Lymph # (Auto) 1.8 (0.6-2.4) K/uL Towner # (Auto) 0.5 (0.0-0.8) K/uL Eos # (Auto) 0.1 (0.0-0.7) K/uL Baso # (Auto) 0.0 (0.0-0.1) K/uL Nucleated RBC % 0.0 /100WBC Nucleated RBCs # 0 K/uL Sodium 140 (136-145) mmol/L Potassium 4.2 (3.5-5.1) mmol/L Chloride 104 (98-107) mmol/L Carbon Dioxide 28.7 (21.0-32.0) mmol/L BUN 15 (7.0-18.0) mg/dL Creatinine 0.7 (0.6-1.0) mg/dL Est Cr Clr Drug Dosing 87.08 mL/min Estimated GFR (MDRD) > 60.0 ml/min Glucose 100 (74-106) mg/dL Calcium 8.9 (8.5-10.1) mg/dL Total Bilirubin 0.9 (0.2-1.0) mg/dL AST 21 (15-37) IU/L ALT 25 (14-63) IU/L Alkaline Phosphatase 75 (46-116) U/L Total Protein 7.7 (6.4-8.2) g/dL Albumin 4.2 (3.4-5.0) g/dL Globulin 3.5 (2.6-4.0) g/dL Albumin/Globulin Ratio 1.2 (0.9-1.6) Urine Color YELLOW Urine Appearance CLEAR Urine pH 7.5 (5.0-8.0) Ur Specific Mozier 1.015 (1.001-1.035) Urine Protein NEGATIVE (NEGATIVE) mg/dL Urine Glucose (UA) NEGATIVE (NEGATIVE) mg/dL Urine Ketones NEGATIVE (NEGATIVE) mg/dL Urine Occult Blood NEGATIVE (NEGATIVE) Urine Nitrite NEGATIVE (NEGATIVE) Urine Bilirubin NEGATIVE (NEGATIVE) Urine Urobilinogen 0.2 (<2.0) EU/dL Ur Leukocyte Esterase NEGATIVE (NEGATIVE) Meds: Medications Discontinued Medications Generic Name Dose Route Start Last Admin Trade Name Freq PRN Reason Stop Dose Admin Dicyclomine HCl 10 mg 02/22/21 22:18 02/22/21 22:25 Dicyclomine 10 Mg Cap PO 02/22/21 22:19 10 mg ONETIME ONE Administration Hydromorphone HCl 1 mg 02/22/21 19:00 02/22/21 19:07 Hydromorphone 1 Mg/Ml Syringe IVPUSH 02/22/21 19:01 1 mg ONETIME ONE Administration Sodium Chloride 1,000 mls @ 999 mls/hr 02/22/21 18:45 02/22/21 19:04 Normal Saline IV 02/22/21 19:45 999 mls/hr .BOLUS ONE Administration Iopamidol 100 ml 02/22/21 20:18 02/22/21 21:40 Iopamidol 755 Mg/Ml 500 Ml Multipack Bottle IVPUSH 02/22/21 20:19 100 ml ONETIME STA Administration Magnesium Citrate 300 ml 02/22/21 23:06 02/22/21 23:14 Magnesium Citrate Solution 296 Ml Bottle PO 02/22/21 23:07 296 ml ONETIME ONE Administration Ondansetron HCl 4 mg 02/22/21 19:00 02/22/21 19:07 Ondansetron 4 Mg/2 Ml Sdv IVPUSH 02/22/21 19:01 4 mg ONETIME ONE Administration Sodium Chloride 10 ml 02/22/21 18:47 02/22/21 19:05 Sodium Chloride 0.9% 10 Ml Syringe FLUSH 10 ml ASDIRECTED PRN Administration Keep Vein Open Sodium Chloride 2.5 ml 02/22/21 18:47 02/22/21 19:05 Sodium Chloride 0.9% 2.5 Ml Syringe FLUSH 2.5 ml ASDIRECTED PRN Administration Keep Vein Open Sepsis Event Note (ED) - Evaluation Sepsis Screening Result: No Definite Risk - Focused Exam Vital Signs: Vital Signs Pulse Resp BP Pulse Ox 02/22/21 23:15 98 20 147/75 H 95 - My Orders Last 24 Hours: My Active Orders 02/22/21 18:47 Saline Lock Insert [OM.PC] Stat - Assessment/Plan Last 24 Hours: My Active Orders 02/22/21 18:47 Saline Lock Insert [OM.PC] Stat
[2021-02-22] MEDS ORDERED: Dicyclomine 10 MG Cap PO ONE (22:18)
--- NOTE | 2021-02-22 22:44 | CT ---
For Patients: As a result of the Century Cures Act, medical imaging exams and procedure reports are released immediately into your electronic medical record. You may view this report before your referring provider. If you have questions, please contact your health care provider. Indication: Abdominal pain Technique: Contrast enhanced axial CT imaging through the abdomen and pelvis. 100 mL Isovue 370 contrast agent was administered intravenously. Sagittal and coronal reconstructions are provided. Comparison: CT abdomen pelvis with contrast 11/27/2019 Findings: No abnormalities are demonstrated relating to the liver, gallbladder, spleen, pancreas, adrenal glands, and kidneys. There is stable mild enlargement of the biliary tree. The portal vein is patent. There is atherosclerosis the abdominal aorta underlying aneurysm. There is no abdominal lymphadenopathy. The stomach and duodenum are unremarkable. There is no small bowel wall thickening or abnormal distention. The appendix is noninflamed. There is no colonic wall thickening or mesenteric edema. Surgical anastomosis is noted in the distal sigmoid colon. There is prominent fecal material throughout the colon, suggesting constipation. There are degenerative changes of the lumbar spine, similar to prior. 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 There is minimal right lung base atelectasis. Impression: No acute process demonstrated in the abdomen and pelvis. Prominent fecal material throughout the colon suggests constipation. Correlate clinically. Please note that all CT scans at this facility use dose modulation, iterative reconstruction, and/or weight-based dosing when appropriate to reduce radiation dose to as low as reasonably achievable. Dictated by David Sung MD @ 02/22/2021 10:43:[address] David Sung @ Feb 22 2021 10:43PM
[2021-02-22] MEDS ORDERED: Magnesium Citrate Solution 296 ML Bottle PO ONE (23:06)
== END 2021-02-22 23:16 | disposition home or self-care (01) ==
LOC: MW.ED 17:44
DX: K59.00 Constipation, unspecified (principal); J44.9 Chronic obstructive pulmonary disease, unspecified; Z79.899 Other long term (current) drug therapy
CPT/HCPCS: 36415; 74177; 80053; 81003; 85025; 96374; 96375; 99284; A9270; J1170; J2405; J7030; Q9967

== ENCOUNTER 2021-11-14 18:56 | Inpatient (IN) | payer MEDICARE, OTHER ==
[2021-11-14] MEDS ORDERED: Sodium Chloride 0.9% 1,000 ML IV ONE ×2 (19:13→19:36)
[2021-11-14] MEDS ORDERED: HYDROmorphone 1 MG/ML Syringe IVPUSH ONE ×2 (19:13→21:03)
[2021-11-14] MEDS ORDERED: Ondansetron 4 MG/2 ML SDV IVPUSH ONE (19:13)
[2021-11-14 20:10] LABS: CORONAVIRUS COVID-19 NAA NEGATIVE (NEGATIVE); INFLUENZA A NAA NEGATIVE (NEGATIVE); INFLUENZA B NAA NEGATIVE (NEGATIVE)
[2021-11-14 20:21] LABS: BLOOD UREA NITROGEN,BUN 18 mg/dL (7.0-18.0); CHLORIDE,CL 104 mmol/L (98-107); GLUCOSE RANDOM 98 mg/dL (74-106); LIPASE 23 U/L (73-393); POTASSIUM,K 3.7 mmol/L (3.5-5.1); SODIUM,NA 143 mmol/L (136-145)
[2021-11-14] MEDS ORDERED: Piperacillin/Tazobactam 3.375 GM in Sodium Chloride 0.9% 50 ML IV ONE (20:25)
[2021-11-14] MEDS ORDERED: Iopamidol 755 MG/ML 500 ML Multipack Bottle IVPUSH STA (21:05)
[2021-11-14] MEDS ORDERED: ALPRAZOLAM 2 MG PO SCH (22:27)
[2021-11-14] MEDS ORDERED: Lactated Ringers 1,000 ML IV SCH (22:30)
[2021-11-15] MEDS ORDERED: ALPRAZolam 0.5 MG Tab PO ONE (00:30)
[2021-11-15] MEDS ORDERED: busPIRone 5 MG Tab PO ONE (00:30)
[2021-11-15] MEDS: Pantoprazole 40 MG in Sodium Chloride 0.9% 10 ML IVPUSH SCH ×2 (00:35→09:39)
[2021-11-15] MEDS: HYDROmorphone 2 MG/ML Syringe IVPUSH PRN ×6 (00:37→21:52)
[2021-11-15] MEDS: Ondansetron 4 MG/2 ML SDV IVPUSH PRN ×2 (00:38→05:53)
[2021-11-15] MEDS: ALPRAZolam 0.5 MG Tab PO SCH ×3 (05:15→21:51)
[2021-11-15] MEDS: Piperacillin/Tazobactam 3.375 GM in Sodium Chloride 0.9% 50 ML IV SCH ×3 (05:16→21:51)
[2021-11-15 06:42] LABS: BLOOD UREA NITROGEN,BUN 12 mg/dL (7.0-18.0); CARBON DIOXIDE,CO2 26.6 mmol/L (21.0-32.0); CHLORIDE,CL 107 mmol/L (98-107); GLUCOSE RANDOM 79 mg/dL (74-106); SODIUM,NA 143 mmol/L (136-145)
[2021-11-15] MEDS ORDERED: 50% Dextrose in Water 50 ML Syringe IVPUSH ONE (08:18)
[2021-11-15] MEDS: Dextrose 5%-0.9% NaCl 1,000 ML IV SCH (08:36)
[2021-11-15] MEDS ORDERED: Heparin Sodium 5,000 Units/ML Vial SUBCUT SCH (09:00)
[2021-11-15] MEDS: Albuterol/Ipratropium 3.0-0.5 MG/3 ML Neb Soln NEB PRN ×2 (09:28→18:28)
[2021-11-15] MEDS: Budesonide 0.5 MG/2 ML Neb Susp INH SCH (09:28)
[2021-11-15] MEDS: Fluticasone NASAL Spray 16 GM Bottle NASBOTH SCH (09:43)
[2021-11-15] MEDS: Enoxaparin 40 MG/0.4 ML Syringe SUBCUT SCH (09:43)
[2021-11-15] MEDS ORDERED: Sodium Chloride 0.9% 2.5 ML Syringe FLUSH PRN (10:53)
[2021-11-15] MEDS ORDERED: Sodium Chloride 0.9% 10 ML Syringe FLUSH PRN (10:53)
[2021-11-15] MEDS ORDERED: Non-Formulary Medication 1 Each (Rosuvastatin 5 MG Tablet) PO SCH (21:00)
[2021-11-15] MEDS: busPIRone 5 MG Tab PO SCH (21:51)
[2021-11-16] MEDS: HYDROmorphone 2 MG/ML Syringe IVPUSH PRN ×5 (02:16→19:16)
[2021-11-16] MEDS: Dextrose 5%-0.9% NaCl 1,000 ML IV SCH (02:21)
[2021-11-16] MEDS: ALPRAZolam 0.5 MG Tab PO SCH ×3 (05:45→22:34)
[2021-11-16] MEDS: Piperacillin/Tazobactam 3.375 GM in Sodium Chloride 0.9% 50 ML IV SCH ×4 (05:45→22:35)
[2021-11-16] MEDS: Albuterol/Ipratropium 3.0-0.5 MG/3 ML Neb Soln NEB PRN ×2 (05:50→09:32)
[2021-11-16 06:13] LABS: BLOOD UREA NITROGEN,BUN 8 mg/dL (7.0-18.0); CARBON DIOXIDE,CO2 26.6 mmol/L (21.0-32.0); CHLORIDE,CL 109 mmol/L (98-107); GLUCOSE RANDOM 90 mg/dL (74-106); POTASSIUM,K 3.7 mmol/L (3.5-5.1); SODIUM,NA 146 mmol/L (136-145)
[2021-11-16] MEDS ORDERED: Dextrose 5 %-0.2 % NaCl 1,000 ML IV SCH (08:00)
[2021-11-16] MEDS: Pantoprazole 40 MG in Sodium Chloride 0.9% 10 ML IVPUSH SCH (08:45)
[2021-11-16] MEDS: Ketorolac 30 MG/ML SDV IVPUSH PRN ×2 (08:49→16:24)
[2021-11-16] MEDS: Fluticasone NASAL Spray 16 GM Bottle NASBOTH SCH (08:51)
[2021-11-16] MEDS: Enoxaparin 40 MG/0.4 ML Syringe SUBCUT SCH (09:00)
[2021-11-16] MEDS: Budesonide 0.5 MG/2 ML Neb Susp INH SCH (09:31)
[2021-11-16] MEDS ORDERED: Acetaminophen 325 MG Tab PO PRN (09:47)
[2021-11-16] MEDS: Dextrose 5 %-0.2 % NaCl 1,000 ML IV SCH ×2 (09:54→19:17)
[2021-11-16] MEDS ORDERED: Potassium Chloride 20 MEQ Tab.ER PO ONE (10:12)
[2021-11-16] MEDS: Ondansetron 4 MG/2 ML SDV IVPUSH PRN ×2 (10:57→22:35)
[2021-11-16] MEDS ORDERED: Promethazine 25 MG/ML SDV IM PRN (13:00)
[2021-11-16] MEDS: Gabapentin 300 MG Cap PO SCH ×2 (13:47→22:39)
[2021-11-16] MEDS: Rosuvastatin 10 MG Tab PO SCH (20:32)
[2021-11-16] MEDS: busPIRone 5 MG Tab PO SCH (20:32)
[2021-11-17] MEDS: HYDROmorphone 2 MG/ML Syringe IVPUSH PRN ×4 (00:11→16:42)
[2021-11-17] MEDS: Dextrose 5 %-0.2 % NaCl 1,000 ML IV SCH ×4 (03:41→21:15)
[2021-11-17] MEDS: ALPRAZolam 0.5 MG Tab PO SCH ×3 (05:37→21:15)
[2021-11-17] MEDS: Piperacillin/Tazobactam 3.375 GM in Sodium Chloride 0.9% 50 ML IV SCH ×4 (05:39→22:44)
[2021-11-17] MEDS: Gabapentin 300 MG Cap PO SCH ×3 (05:43→21:19)
[2021-11-17 06:31] LABS: BLOOD UREA NITROGEN,BUN 5 mg/dL (7.0-18.0); CARBON DIOXIDE,CO2 29.3 mmol/L (21.0-32.0); CHLORIDE,CL 106 mmol/L (98-107); GLUCOSE RANDOM 107 mg/dL (74-106); POTASSIUM,K 3.4 mmol/L (3.5-5.1); SODIUM,NA 140 mmol/L (136-145)
[2021-11-17] MEDS ORDERED: Potassium Chloride 20 MEQ Tab.ER PO ONE (08:22)
[2021-11-17] MEDS ORDERED: Magnesium Oxide 400 MG Tab PO ONE (08:23)
[2021-11-17] MEDS: Enoxaparin 40 MG/0.4 ML Syringe SUBCUT SCH (08:59)
[2021-11-17] MEDS: Pantoprazole 40 MG in Sodium Chloride 0.9% 10 ML IVPUSH SCH (08:59)
[2021-11-17] MEDS: Fluticasone NASAL Spray 16 GM Bottle NASBOTH SCH (09:00)
[2021-11-17] MEDS: Budesonide 0.5 MG/2 ML Neb Susp INH SCH (09:47)
[2021-11-17] MEDS: Acetaminophen 325 MG Tab PO SCH ×2 (10:58→16:42)
[2021-11-17] MEDS: busPIRone 5 MG Tab PO SCH (20:19)
[2021-11-17] MEDS: Rosuvastatin 10 MG Tab PO SCH (20:20)
[2021-11-17] MEDS: Acetaminophen/HYDROcodone 325-5 MG Tab PO PRN (20:20)
[2021-11-17] MEDS: HYDROmorphone 1 MG/ML Syringe IVPUSH PRN (22:43)
[2021-11-18] MEDS: Acetaminophen/HYDROcodone 325-5 MG Tab PO PRN ×2 (02:50→09:08)
[2021-11-18] MEDS: Fluticasone NASAL Spray 16 GM Bottle NASBOTH SCH ×2 (02:53→09:09)
[2021-11-18] MEDS: HYDROmorphone 1 MG/ML Syringe IVPUSH PRN ×3 (05:01→17:53)
[2021-11-18] MEDS: ALPRAZolam 0.5 MG Tab PO SCH ×3 (05:03→21:06)
[2021-11-18] MEDS: Piperacillin/Tazobactam 3.375 GM in Sodium Chloride 0.9% 50 ML IV SCH ×4 (05:04→23:22)
[2021-11-18] MEDS: Gabapentin 300 MG Cap PO SCH (05:08)
[2021-11-18 05:52] LABS: BLOOD UREA NITROGEN,BUN 4 mg/dL (7.0-18.0); CARBON DIOXIDE,CO2 33.3 mmol/L (21.0-32.0); CHLORIDE,CL 104 mmol/L (98-107); GLUCOSE RANDOM 105 mg/dL (74-106); POTASSIUM,K 3.2 mmol/L (3.5-5.1); SODIUM,NA 145 mmol/L (136-145)
[2021-11-18] MEDS: Dextrose 5 %-0.2 % NaCl 1,000 ML IV SCH ×3 (06:03→16:49)
[2021-11-18] MEDS: Albuterol/Ipratropium 3.0-0.5 MG/3 ML Neb Soln NEB PRN ×3 (07:04→23:30)
[2021-11-18] MEDS: Budesonide 0.5 MG/2 ML Neb Susp INH SCH (08:54)
[2021-11-18] MEDS: Pantoprazole 40 MG in Sodium Chloride 0.9% 10 ML IVPUSH SCH (09:07)
[2021-11-18] MEDS: Enoxaparin 40 MG/0.4 ML Syringe SUBCUT SCH (09:08)
[2021-11-18] MEDS ORDERED: Potassium Chloride 20 MEQ Tab.ER PO ONE (09:29)
[2021-11-18] MEDS ORDERED: Magnesium Oxide 400 MG Tab PO ONE (09:30)
[2021-11-18] MEDS ORDERED: Metoclopramide 10 MG/2 ML SDV IVPUSH PRN (09:32)
[2021-11-18] MEDS: oxyCODONE 5 MG Tab PO PRN ×2 (14:14→21:07)
[2021-11-18] MEDS: busPIRone 5 MG Tab PO SCH (21:05)
[2021-11-18] MEDS: Rosuvastatin 10 MG Tab PO SCH (21:06)
[2021-11-19] MEDS: HYDROmorphone 1 MG/ML Syringe IVPUSH PRN ×2 (00:10→06:28)
[2021-11-19] MEDS: Dextrose 5 %-0.2 % NaCl 1,000 ML IV SCH (02:24)
[2021-11-19] MEDS: oxyCODONE 5 MG Tab PO PRN ×4 (03:04→21:41)
[2021-11-19] MEDS: Piperacillin/Tazobactam 3.375 GM in Sodium Chloride 0.9% 50 ML IV SCH ×4 (06:23→23:57)
[2021-11-19] MEDS: ALPRAZolam 0.5 MG Tab PO SCH ×3 (06:23→21:33)
[2021-11-19 06:48] LABS: BLOOD UREA NITROGEN,BUN 1 mg/dL (7.0-18.0); CHLORIDE,CL 104 mmol/L (98-107); GLUCOSE RANDOM 94 mg/dL (74-106); POTASSIUM,K 3.4 mmol/L (3.5-5.1); SODIUM,NA 143 mmol/L (136-145)
[2021-11-19] MEDS ORDERED: Potassium Chloride 20 MEQ Tab.ER PO ONE (08:00)
[2021-11-19] MEDS: Fluticasone NASAL Spray 16 GM Bottle NASBOTH SCH (08:56)
[2021-11-19] MEDS: Pantoprazole 40 MG in Sodium Chloride 0.9% 10 ML IVPUSH SCH (08:56)
[2021-11-19] MEDS: Enoxaparin 40 MG/0.4 ML Syringe SUBCUT SCH (09:00)
[2021-11-19] MEDS: Budesonide 0.5 MG/2 ML Neb Susp INH SCH (10:27)
[2021-11-19] MEDS: Acetaminophen 325 MG/10.15 ML ML PO PRN (10:27)
[2021-11-19] MEDS: Albuterol/Ipratropium 4 GM Inhalation Spray INH PRN ×2 (12:23→19:23)
[2021-11-19] MEDS: busPIRone 5 MG Tab PO SCH (21:33)
[2021-11-19] MEDS: Rosuvastatin 10 MG Tab PO SCH (21:34)
[2021-11-20] MEDS: Albuterol/Ipratropium 4 GM Inhalation Spray INH PRN ×3 (01:24→17:37)
[2021-11-20] MEDS: oxyCODONE 5 MG Tab PO PRN ×5 (04:41→21:52)
[2021-11-20] MEDS: Piperacillin/Tazobactam 3.375 GM in Sodium Chloride 0.9% 50 ML IV SCH ×2 (04:46→15:25)
[2021-11-20] MEDS: ALPRAZolam 0.5 MG Tab PO SCH ×3 (05:00→21:51)
[2021-11-20 06:39] LABS: BLOOD UREA NITROGEN,BUN 8 mg/dL (7.0-18.0); CARBON DIOXIDE,CO2 31.1 mmol/L (21.0-32.0); CHLORIDE,CL 105 mmol/L (98-107); GLUCOSE RANDOM 86 mg/dL (74-106); POTASSIUM,K 3.4 mmol/L (3.5-5.1); SODIUM,NA 144 mmol/L (136-145)
[2021-11-20] MEDS ORDERED: Potassium Chloride 20 MEQ Tab.ER PO ONE (09:00)
[2021-11-20] MEDS: Fluticasone NASAL Spray 16 GM Bottle NASBOTH SCH (09:30)
[2021-11-20] MEDS: Pantoprazole 40 MG in Sodium Chloride 0.9% 10 ML IVPUSH SCH (09:31)
[2021-11-20] MEDS: Enoxaparin 40 MG/0.4 ML Syringe SUBCUT SCH (09:32)
[2021-11-20] MEDS: Budesonide 0.5 MG/2 ML Neb Susp INH SCH (09:48)
[2021-11-20] MEDS: Ciprofloxacin 500 MG Tab PO SCH ×2 (16:03→21:49)
[2021-11-20] MEDS: metroNIDAZOLE 250 MG Tab PO SCH ×2 (16:03→21:50)
[2021-11-20] MEDS: busPIRone 5 MG Tab PO SCH (21:50)
[2021-11-20] MEDS: Rosuvastatin 10 MG Tab PO SCH (21:50)
[2021-11-21] MEDS: Albuterol/Ipratropium 4 GM Inhalation Spray INH PRN ×3 (00:17→18:12)
[2021-11-21] MEDS: oxyCODONE 5 MG Tab PO PRN ×6 (02:22→23:49)
[2021-11-21] MEDS: metroNIDAZOLE 250 MG Tab PO SCH ×3 (05:19→21:28)
[2021-11-21] MEDS: Acetaminophen 325 MG/10.15 ML ML PO PRN (05:20)
[2021-11-21] MEDS: ALPRAZolam 0.5 MG Tab PO SCH ×4 (05:20→21:28)
[2021-11-21] MEDS: Pantoprazole 40 MG Tab.CR PO SCH ×2 (06:07→09:09)
[2021-11-21 07:29] LABS: BLOOD UREA NITROGEN,BUN 14 mg/dL (7.0-18.0); CARBON DIOXIDE,CO2 28.4 mmol/L (21.0-32.0); CHLORIDE,CL 102 mmol/L (98-107); GLUCOSE RANDOM 92 mg/dL (74-106); POTASSIUM,K 3.8 mmol/L (3.5-5.1); SODIUM,NA 141 mmol/L (136-145)
[2021-11-21] MEDS: Ciprofloxacin 500 MG Tab PO SCH ×2 (09:03→20:48)
[2021-11-21] MEDS: Enoxaparin 40 MG/0.4 ML Syringe SUBCUT SCH (09:04)
[2021-11-21] MEDS: Budesonide 0.5 MG/2 ML Neb Susp INH SCH (09:07)
[2021-11-21] MEDS: Fluticasone NASAL Spray 16 GM Bottle NASBOTH SCH (09:07)
[2021-11-21] MEDS: Rosuvastatin 10 MG Tab PO SCH (20:47)
[2021-11-21] MEDS: busPIRone 5 MG Tab PO SCH (20:48)
[2021-11-22] MEDS: Albuterol/Ipratropium 4 GM Inhalation Spray INH PRN (05:27)
[2021-11-22] MEDS: metroNIDAZOLE 250 MG Tab PO SCH ×2 (05:27→14:47)
[2021-11-22] MEDS: oxyCODONE 5 MG Tab PO PRN ×3 (05:28→14:48)
[2021-11-22] MEDS: ALPRAZolam 0.5 MG Tab PO SCH ×3 (05:28→14:50)
[2021-11-22] MEDS: Pantoprazole 40 MG Tab.CR PO SCH (07:33)
[2021-11-22] MEDS: Budesonide 0.5 MG/2 ML Neb Susp INH SCH (09:23)
[2021-11-22] MEDS: Albuterol/Ipratropium 3.0-0.5 MG/3 ML Neb Soln NEB PRN ×2 (09:24→12:38)
[2021-11-22] MEDS: Enoxaparin 40 MG/0.4 ML Syringe SUBCUT SCH (09:56)
[2021-11-22] MEDS: Ciprofloxacin 500 MG Tab PO SCH (09:57)
[2021-11-22] MEDS: Fluticasone NASAL Spray 16 GM Bottle NASBOTH SCH (09:59)
[2021-11-22] MEDS: Acetaminophen 325 MG/10.15 ML ML PO PRN (12:35)
== END 2021-11-22 15:49 | disposition home or self-care (01) | DRG 392 ==
LOC: MW.ED 18:56 → MW.MS 22:04
PROVIDERS: ADMIT Student in an Organized Health Care Education/Training Program; ATTEND Student in an Organized Health Care Education/Training Program
DX: K52.9 Noninfective gastroenteritis and colitis, unspecified (principal); J43.9 Emphysema, unspecified; K56.7 Ileus, unspecified; J44.9 Chronic obstructive pulmonary disease, unspecified; F41.9 Anxiety disorder, unspecified; Z99.81 Dependence on supplemental oxygen; K43.5 Parastomal hernia without obstruction or gangrene; Z79.51 Long term (current) use of inhaled steroids; Z79.899 Other long term (current) drug therapy; K57.90 Diverticulosis of intestine, part unspecified, without perforation or abscess without bleeding; M19.90 Unspecified osteoarthritis, unspecified site; F32.A Depression, unspecified; Z90.49 Acquired absence of other specified parts of digestive tract; Z86.16 Personal history of COVID-19; Z86.19 Personal history of other infectious and parasitic diseases; Z90.89 Acquired absence of other organs; Z98.51 Tubal ligation status; Z20.822 Contact with and (suspected) exposure to COVID-19; E16.2 Hypoglycemia, unspecified
CPT/HCPCS: 0240U; 36415; 71045; 74019; 74177; 80048; 80053; 81003; 82947; 83605; 83690; 83735; 84100; 84484; 85025; 87040; 87045; 87046; 87449; 87899; 94640; 96365; 96375; 96376; 99285; A9270-GY; C9113; J1170; J1650; J1885; J2405; J2543; J2550; J7030; J7042; J7120; J7620-GY; Q9967

== ENCOUNTER 2021-11-25 18:26 | Emergency (ER) | payer MEDICARE, OTHER ==
[2021-11-25] MEDS ORDERED: Sodium Chloride 0.9% 1,000 ML IV ONE (18:36)
[2021-11-25] MEDS ORDERED: Ondansetron 4 MG/2 ML SDV IVPUSH ONE (18:36)
[2021-11-25] MEDS ORDERED: Alum Hydro/Mag Hydro/Simeth XS 15 ML, Metoclopramide 5 MG, Lidocaine 2% 5 ML PO ONE ×3 (19:01)
[2021-11-25 19:02] LABS: BLOOD UREA NITROGEN,BUN 27 mg/dL (7.0-18.0); CARBON DIOXIDE,CO2 30.7 mmol/L (21.0-32.0); CHLORIDE,CL 101 mmol/L (98-107); GLUCOSE RANDOM 102 mg/dL (74-106); LIPASE 84 U/L (73-393); POTASSIUM,K 3.9 mmol/L (3.5-5.1); SODIUM,NA 142 mmol/L (136-145)
== END 2021-11-25 21:40 | disposition home or self-care (01) ==
LOC: MW.ED 18:26
DX: F41.9 Anxiety disorder, unspecified (principal); R10.13 Epigastric pain; J44.9 Chronic obstructive pulmonary disease, unspecified; F32.A Depression, unspecified; Z79.899 Other long term (current) drug therapy
CPT/HCPCS: 36415; 71045; 80053; 81003; 83605; 83690; 83735; 84484; 85025; 93005; 96374; 99285; A9270; J2405; J7030

== ENCOUNTER 2022-02-04 09:11 | Emergency (ER) | payer MEDICARE, OTHER ==
[2022-02-04] MEDS ORDERED: Sodium Chloride 0.9% 10 ML Syringe FLUSH PRN (09:44)
[2022-02-04] MEDS ORDERED: Sodium Chloride 0.9% 1,000 ML IV ONE (09:44)
[2022-02-04] MEDS ORDERED: Sodium Chloride 0.9% 2.5 ML Syringe FLUSH PRN (09:44)
[2022-02-04] MEDS ORDERED: Ondansetron 4 MG/2 ML SDV IVPUSH ONE ×2 (09:49→15:22)
[2022-02-04] MEDS ORDERED: HYDROmorphone 2 MG/ML Syringe IVPUSH ONE ×2 (10:24→12:37)
[2022-02-04 10:44] LABS: CARBON DIOXIDE,CO2 28.3 mmol/L (21.0-32.0); POTASSIUM,K 4.3 mmol/L (3.5-5.1)
[2022-02-04] MEDS ORDERED: Iopamidol 755 MG/ML 500 ML Multipack Bottle IVPUSH STA (11:33)
== END 2022-02-04 16:11 | disposition home or self-care (01) ==
LOC: MW.ED 09:11
DX: R10.84 Generalized abdominal pain (principal); K59.00 Constipation, unspecified; J44.9 Chronic obstructive pulmonary disease, unspecified; Z86.16 Personal history of COVID-19; Z90.49 Acquired absence of other specified parts of digestive tract; Z79.899 Other long term (current) drug therapy; Z20.822 Contact with and (suspected) exposure to COVID-19
CPT/HCPCS: 36415; 74177; 80053; 81003; 83605; 83690; 84484; 85025; 87040; 93005; 96374; 96375; 96376; 99284; J1170; J2405; J3490; J7030; Q9967; U0002

== ENCOUNTER 2024-08-03 14:13 | Inpatient (IN) | payer MEDICARE, OTHER ==
[2024-08-03] MEDS ORDERED: Sodium Chloride 0.9% 2.5 ML Syringe FLUSH PRN (14:15)
[2024-08-03] MEDS ORDERED: Sodium Chloride 0.9% 10 ML Syringe FLUSH PRN (14:15)
[2024-08-03 14:27] LABS: BASOPHILS ABSOLUTE AUTO 0.06 K/uL (0.00-0.20); EOSINOPHILS ABSOLUTE AUTO 0.16 K/uL (0.00-0.45); EOSINOPHILS PERCENT AUTO 2.6 % (0.0-6.0); HEMATOCRIT 32.4 % (37.0-47.0); HEMOGLOBIN 10.3 g/dL (12.0-16.0); IMMATURE GRAN ABSOLUTE AUTO 0.04 K/uL (0.00-0.05); IMMATURE GRAN PERCENT AUTO 0.7 % (0.0-0.4); LYMPHOCYTES ABSOLUTE AUTO 2.29 K/uL (1.00-4.80); LYMPHOCYTES PERCENT AUTO 37.4 % (24.0-44.0); MEAN CORPUSCULAR HEMOGLOBIN 29.5 pg (28.0-32.0); MEAN CORPUSCULAR HGB CONC 31.8 g/dL (32.0-36.0); MEAN CORPUSCULAR VOLUME 92.8 fL (83.0-99.0); MONOCYTES ABSOLUTE AUTO 0.83 K/uL (0.00-0.80); MONOCYTES PERCENT AUTO 13.5 % (0.0-8.0); NEUTROPHILS ABSOLUTE AUTO 2.75 K/uL (1.80-7.70); NEUTROPHILS PERCENT AUTO 44.8 % (41.0-71.0); PLATELET COUNT,PLT 316 K/uL (150-400); RED BLOOD CELL COUNT 3.49 M/uL (4.10-5.30); WHITE BLOOD CELL COUNT,WBC 6.13 K/uL (3.9-11.3)
[2024-08-03 14:59] LABS: A/G RATIO 0.9 (0.9-1.6); ALANINE AMINOTRANSFERASE,ALT 15 IU/L (14-63); ALBUMIN 3.6 g/dL (3.4-5.0); ALKALINE PHOSPHATASE 99 U/L (46-116); ASPARTATE AMNIOTRANSFERASE,AST 17 IU/L (15-37); BILIRUBIN TOTAL 0.4 mg/dL (0.2-1.0); BLOOD UREA NITROGEN,BUN 15 mg/dL (7.0-18.0); CALCIUM 9.2 mg/dL (8.5-10.1); CARBON DIOXIDE,CO2 32.7 mmol/L (21.0-32.0); CHLORIDE,CL 103 mmol/L (98-107); CREATININE 0.7 mg/dL (0.6-1.0); EST CRCL DRUG DOSING (CG) 83.73 mL/min; GLUCOSE RANDOM 96 mg/dL (74-106); POTASSIUM,K 3.9 mmol/L (3.5-5.1); PRO B-TYPE NATRIUR PEPT,BNPPRO 144 pg/mL (0-125); PROTEIN TOTAL,TP 7.4 g/dL (6.4-8.2); SODIUM,NA 141 mmol/L (136-145)
[2024-08-03 15:02] LABS: ESTIMATED GFR 96 mL/min (>60)
[2024-08-03 15:14] LABS: APPEARANCE,URINE CLEAR; BILIRUBIN,URINE NEGATIVE (NEGATIVE); COLOR,URINE YELLOW; GLUCOSE,URINE NEGATIVE (NEGATIVE); KETONES,URINE NEGATIVE (NEGATIVE); LEUKOCYTE ESTERASE,URINE NEGATIVE (NEGATIVE); NITRITE,URINE NEGATIVE (NEGATIVE); OCCULT BLOOD,URINE NEGATIVE (NEGATIVE); PROTEIN,URINE NEGATIVE (NEGATIVE); UROBILINOGEN,URINE 0.2 EU/dL (<2.0)
[2024-08-03 15:22] LABS: RBC,URINE NONE SEEN (0-2/HPF); WBC,URINE 0-1 (0-5/HPF)
[2024-08-03 15:23] LABS: BACTERIA,URINE FEW (NEGATIVE); EPITHELIAL CELLS,URINE FEW (NONE-FEW); MUCUS,URINE LIGHT (NONE-MOD)
[2024-08-03] MEDS: Iopamidol 755 MG/ML 500 ML Multipack Bottle IVPUSH STA (15:51)
[2024-08-03] MEDS: cefTRIAXone 1 GM in Sodium Chloride 0.9% 50 ML IV ONE (17:19)
[2024-08-03] MEDS: Polyethylene Glycol 3350 Powder 17 GM Packet PO ONE (17:27)
[2024-08-03] MEDS: Azithromycin 500 MG in Sodium Chloride 0.9% 250 ML IV ONE (17:46)
[2024-08-03] MEDS ORDERED: Polyethylene Glycol 3350 Powder 17 GM Packet PO PRN (18:44)
[2024-08-03] MEDS ORDERED: Albuterol 0.083% 2.5 MG/3 ML Neb Soln NEB PRN (18:44)
[2024-08-03] MEDS ORDERED: Melatonin 3 MG Tab PO PRN (18:44)
[2024-08-03] MEDS ORDERED: Ondansetron 4 MG Tab.DIS PO PRN (18:44)
[2024-08-03] MEDS: Fluticasone NASAL Spray 16 GM Bottle NASBOTH SCH (19:21)
[2024-08-03] MEDS: Albuterol/Ipratropium 3.0-0.5 MG/3 ML Neb Soln NEB PRN (19:22)
[2024-08-03] MEDS: Rosuvastatin 10 MG Tab PO SCH (19:22)
[2024-08-03] MEDS: Enoxaparin 40 MG/0.4 ML Syringe SUBCUT SCH (19:22)
[2024-08-03] MEDS: ALPRAZolam 0.5 MG Tab PO SCH (19:23)
[2024-08-03] MEDS: busPIRone 15 MG Tab PO SCH (19:23)
[2024-08-03] MEDS: Bisacodyl 5 MG Tab PO PRN (21:21)
[2024-08-03 22:20] LABS: CORONAVIRUS COVID-19 NAA NEGATIVE (NEGATIVE); INFLUENZA A NAA NEGATIVE (NEGATIVE); INFLUENZA B NAA NEGATIVE (NEGATIVE); RESPIRATORY SYNCYTIAL VIR NAA NEGATIVE (NEGATIVE)
[2024-08-04] MEDS: ALPRAZolam 0.5 MG Tab PO PRN ×2 (01:45→10:58)
[2024-08-04] MEDS: Acetaminophen 325 MG Tab PO PRN (06:07)
[2024-08-04 06:22] LABS: HEMATOCRIT 32.6 % (37.0-47.0); HEMOGLOBIN 10.4 g/dL (12.0-16.0); IMMATURE GRAN ABSOLUTE AUTO 0.04 K/uL (0.00-0.05); LYMPHOCYTES ABSOLUTE AUTO 0.63 K/uL (1.00-4.80); LYMPHOCYTES PERCENT AUTO 15.1 % (24.0-44.0); MEAN CORPUSCULAR HEMOGLOBIN 29.1 pg (28.0-32.0); MEAN CORPUSCULAR HGB CONC 31.9 g/dL (32.0-36.0); MEAN CORPUSCULAR VOLUME 91.3 fL (83.0-99.0); MEAN PLATELET VOLUME 9.4 fL (9.4-12.3); MONOCYTES ABSOLUTE AUTO 0.15 K/uL (0.00-0.80); MONOCYTES PERCENT AUTO 3.6 % (0.0-8.0); NEUTROPHILS ABSOLUTE AUTO 3.36 K/uL (1.80-7.70); NEUTROPHILS PERCENT AUTO 80.3 % (41.0-71.0); PLATELET COUNT,PLT 282 K/uL (150-400); RED BLOOD CELL COUNT 3.57 M/uL (4.10-5.30); WHITE BLOOD CELL COUNT,WBC 4.18 K/uL (3.9-11.3)
[2024-08-04 06:47] LABS: A/G RATIO 0.9 (0.9-1.6); ALBUMIN 3.5 g/dL (3.4-5.0); BILIRUBIN TOTAL 0.5 mg/dL (0.2-1.0); CALCIUM 9.3 mg/dL (8.5-10.1); CARBON DIOXIDE,CO2 33.9 mmol/L (21.0-32.0); CREATININE 0.6 mg/dL (0.6-1.0); EST CRCL DRUG DOSING (CG) 97.69 mL/min; POTASSIUM,K 4.4 mmol/L (3.5-5.1); PROTEIN TOTAL,TP 7.4 g/dL (6.4-8.2)
[2024-08-04] MEDS: Albuterol/Ipratropium 3.0-0.5 MG/3 ML Neb Soln NEB SCH (09:04)
[2024-08-04] MEDS: methylPREDNISolone Sodium Succinate 125 MG/2 ML SDV IVPUSH SCH (09:05)
[2024-08-04] MEDS: VILANTER INH SCH (14:38)
[2024-08-04] MEDS: UMECLIDIN INH SCH (14:38)
[2024-08-04] MEDS: FLUTICASONE INH SCH (14:38)
[2024-08-04] MEDS: cefTRIAXone 1 GM in Sodium Chloride 0.9% 50 ML IV SCH (18:19)
[2024-08-04] MEDS: Azithromycin 250 MG Tab PO SCH (18:20)
[2024-08-05 06:54] LABS: BASOPHILS ABSOLUTE AUTO 0.01 K/uL (0.00-0.20); BASOPHILS PERCENT AUTO 0.1 % (0.0-1.0); HEMATOCRIT 32.2 % (37.0-47.0); HEMOGLOBIN 10.1 g/dL (12.0-16.0); IMMATURE GRAN ABSOLUTE AUTO 0.08 K/uL (0.00-0.05); LYMPHOCYTES ABSOLUTE AUTO 1.11 K/uL (1.00-4.80); LYMPHOCYTES PERCENT AUTO 14.4 % (24.0-44.0); MEAN CORPUSCULAR HEMOGLOBIN 28.9 pg (28.0-32.0); MEAN CORPUSCULAR HGB CONC 31.4 g/dL (32.0-36.0); MEAN PLATELET VOLUME 9.6 fL (9.4-12.3); MONOCYTES ABSOLUTE AUTO 0.78 K/uL (0.00-0.80); MONOCYTES PERCENT AUTO 10.1 % (0.0-8.0); NEUTROPHILS ABSOLUTE AUTO 5.75 K/uL (1.80-7.70); NEUTROPHILS PERCENT AUTO 74.4 % (41.0-71.0); PLATELET COUNT,PLT 300 K/uL (150-400); WHITE BLOOD CELL COUNT,WBC 7.73 K/uL (3.9-11.3)
[2024-08-05 07:12] LABS: ALBUMIN 3.6 g/dL (3.4-5.0); BILIRUBIN TOTAL 0.4 mg/dL (0.2-1.0); CALCIUM 9.6 mg/dL (8.5-10.1); CARBON DIOXIDE,CO2 32.2 mmol/L (21.0-32.0); CREATININE 0.8 mg/dL (0.6-1.0); EST CRCL DRUG DOSING (CG) 73.27 mL/min; POTASSIUM,K 4.4 mmol/L (3.5-5.1); PROTEIN TOTAL,TP 7.3 g/dL (6.4-8.2)
[2024-08-06 06:12] LABS: BASOPHILS ABSOLUTE AUTO 0.02 K/uL (0.00-0.20); BASOPHILS PERCENT AUTO 0.2 % (0.0-1.0); HEMATOCRIT 35.5 % (37.0-47.0); HEMOGLOBIN 11.1 g/dL (12.0-16.0); IMMATURE GRAN ABSOLUTE AUTO 0.17 K/uL (0.00-0.05); IMMATURE GRAN PERCENT AUTO 1.9 % (0.0-0.4); LYMPHOCYTES ABSOLUTE AUTO 1.27 K/uL (1.00-4.80); MEAN CORPUSCULAR HEMOGLOBIN 28.9 pg (28.0-32.0); MEAN CORPUSCULAR HGB CONC 31.3 g/dL (32.0-36.0); MEAN CORPUSCULAR VOLUME 92.4 fL (83.0-99.0); MEAN PLATELET VOLUME 9.3 fL (9.4-12.3); MONOCYTES ABSOLUTE AUTO 0.76 K/uL (0.00-0.80); MONOCYTES PERCENT AUTO 8.4 % (0.0-8.0); NEUTROPHILS ABSOLUTE AUTO 6.87 K/uL (1.80-7.70); NEUTROPHILS PERCENT AUTO 75.5 % (41.0-71.0); PLATELET COUNT,PLT 339 K/uL (150-400); RED BLOOD CELL COUNT 3.84 M/uL (4.10-5.30); WHITE BLOOD CELL COUNT,WBC 9.09 K/uL (3.9-11.3)
[2024-08-06 06:39] LABS: ALBUMIN 3.9 g/dL (3.4-5.0); BILIRUBIN TOTAL 0.4 mg/dL (0.2-1.0); CALCIUM 9.6 mg/dL (8.5-10.1); CARBON DIOXIDE,CO2 32.6 mmol/L (21.0-32.0); CREATININE 0.8 mg/dL (0.6-1.0); EST CRCL DRUG DOSING (CG) 73.27 mL/min; POTASSIUM,K 4.3 mmol/L (3.5-5.1); PROTEIN TOTAL,TP 7.8 g/dL (6.4-8.2)
[2024-08-06 10:50] LABS: BASE EXCESS VENOUS 2.1 (-2.0-3.0); PH,VENOUS 7.4 (7.31-7.41)
[2024-08-06] MEDS ORDERED: Budesonide 0.5 MG/2 ML Neb Susp NEB SCH (21:00)
[2024-08-06] MEDS: Budesonide 0.5 MG/2 ML Neb Susp NEB SCH (22:16)
[2024-08-07 08:02] LABS: ALBUMIN 3.9 g/dL (3.4-5.0); BILIRUBIN TOTAL 0.3 mg/dL (0.2-1.0); CALCIUM 9.6 mg/dL (8.5-10.1); CARBON DIOXIDE,CO2 28.5 mmol/L (21.0-32.0); CREATININE 0.8 mg/dL (0.6-1.0); EST CRCL DRUG DOSING (CG) 73.27 mL/min; POTASSIUM,K 4.2 mmol/L (3.5-5.1); PROTEIN TOTAL,TP 7.9 g/dL (6.4-8.2)
[2024-08-07 08:04] LABS: BASOPHILS ABSOLUTE AUTO 0.03 K/uL (0.00-0.20); BASOPHILS PERCENT AUTO 0.3 % (0.0-1.0); HEMOGLOBIN 11.2 g/dL (12.0-16.0); IMMATURE GRAN ABSOLUTE AUTO 0.27 K/uL (0.00-0.05); IMMATURE GRAN PERCENT AUTO 2.8 % (0.0-0.4); LYMPHOCYTES ABSOLUTE AUTO 1.53 K/uL (1.00-4.80); MEAN CORPUSCULAR HEMOGLOBIN 29.3 pg (28.0-32.0); MEAN CORPUSCULAR VOLUME 91.6 fL (83.0-99.0); MEAN PLATELET VOLUME 9.2 fL (9.4-12.3); MONOCYTES ABSOLUTE AUTO 1.09 K/uL (0.00-0.80); MONOCYTES PERCENT AUTO 11.4 % (0.0-8.0); NEUTROPHILS ABSOLUTE AUTO 6.66 K/uL (1.80-7.70); NEUTROPHILS PERCENT AUTO 69.5 % (41.0-71.0); PLATELET COUNT,PLT 338 K/uL (150-400); RED BLOOD CELL COUNT 3.82 M/uL (4.10-5.30); WHITE BLOOD CELL COUNT,WBC 9.58 K/uL (3.9-11.3)
== END 2024-08-07 12:13 | disposition home or self-care (01) | DRG 190 ==
LOC: MW.ED 14:13 → MW.MS 17:09
PROVIDERS: ADMIT Internal Medicine; ATTEND Internal Medicine
DX: J44.1 Chronic obstructive pulmonary disease with (acute) exacerbation (principal); J18.9 Pneumonia, unspecified organism; K56.7 Ileus, unspecified; J44.9 Chronic obstructive pulmonary disease, unspecified; J44.0 Chronic obstructive pulmonary disease with (acute) lower respiratory infection; K59.00 Constipation, unspecified; J43.9 Emphysema, unspecified; M19.90 Unspecified osteoarthritis, unspecified site; F41.9 Anxiety disorder, unspecified; F32.A Depression, unspecified; K43.9 Ventral hernia without obstruction or gangrene; Z99.81 Dependence on supplemental oxygen; Z79.51 Long term (current) use of inhaled steroids; Z79.899 Other long term (current) drug therapy; Z87.19 Personal history of other diseases of the digestive system; Z90.49 Acquired absence of other specified parts of digestive tract; Z86.16 Personal history of COVID-19; Z90.89 Acquired absence of other organs; Z98.891 History of uterine scar from previous surgery; Z98.890 Other specified postprocedural states; Z98.51 Tubal ligation status
CPT/HCPCS: 0241U; 36415; 71045; 74177; 80053; 81001; 82803; 83880; 84484; 85025; 87428; 93005; 94640; 94668; 99285; 99284; A9270-GY; J0456; J0696; J1650; J2919; J3490; J3535-GY; J7050; J7620-GY; Q9967

== ENCOUNTER 2024-08-23 08:16 | Emergency (ER) | payer MEDICARE, OTHER ==
[2024-08-23] MEDS ORDERED: Sodium Chloride 0.9% 10 ML Syringe FLUSH PRN (08:29)
[2024-08-23] MEDS ORDERED: Sodium Chloride 0.9% 2.5 ML Syringe FLUSH PRN (08:29)
[2024-08-23 08:57] LABS: BASOPHILS ABSOLUTE AUTO 0.04 K/uL (0.00-0.20); BASOPHILS PERCENT AUTO 0.6 % (0.0-1.0); EOSINOPHILS ABSOLUTE AUTO 0.12 K/uL (0.00-0.45); EOSINOPHILS PERCENT AUTO 1.8 % (0.0-6.0); HEMATOCRIT 35.1 % (37.0-47.0); HEMOGLOBIN 11.3 g/dL (12.0-16.0); IMMATURE GRAN ABSOLUTE AUTO 0.02 K/uL (0.00-0.05); IMMATURE GRAN PERCENT AUTO 0.3 % (0.0-0.4); LYMPHOCYTES ABSOLUTE AUTO 1.22 K/uL (1.00-4.80); LYMPHOCYTES PERCENT AUTO 18.7 % (24.0-44.0); MEAN CORPUSCULAR HEMOGLOBIN 29.5 pg (28.0-32.0); MEAN CORPUSCULAR HGB CONC 32.2 g/dL (32.0-36.0); MEAN CORPUSCULAR VOLUME 91.6 fL (83.0-99.0); MEAN PLATELET VOLUME 9.5 fL (9.4-12.3); MONOCYTES ABSOLUTE AUTO 0.69 K/uL (0.00-0.80); MONOCYTES PERCENT AUTO 10.6 % (0.0-8.0); NEUTROPHILS ABSOLUTE AUTO 4.44 K/uL (1.80-7.70); PLATELET COUNT,PLT 198 K/uL (150-400); RED BLOOD CELL COUNT 3.83 M/uL (4.10-5.30); WHITE BLOOD CELL COUNT,WBC 6.53 K/uL (3.9-11.3)
[2024-08-23 09:28] LABS: LACTIC ACID 0.6 mmol/L (0.4-2.0)
[2024-08-23 10:39] LABS: A/G RATIO 0.9 (0.9-1.6); ALANINE AMINOTRANSFERASE,ALT 25 IU/L (14-63); ALBUMIN 3.6 g/dL (3.4-5.0); ALKALINE PHOSPHATASE 95 U/L (46-116); ASPARTATE AMNIOTRANSFERASE,AST 20 IU/L (15-37); BILIRUBIN TOTAL 1.2 mg/dL (0.2-1.0); BLOOD UREA NITROGEN,BUN 8 mg/dL (7.0-18.0); CALCIUM 9.5 mg/dL (8.5-10.1); CARBON DIOXIDE,CO2 31.6 mmol/L (21.0-32.0); CHLORIDE,CL 103 mmol/L (98-107); CREATININE 0.7 mg/dL (0.6-1.0); EST CRCL DRUG DOSING (CG) 83.48 mL/min; GLUCOSE RANDOM 114 mg/dL (74-106); POTASSIUM,K 3.7 mmol/L (3.5-5.1); PRO B-TYPE NATRIUR PEPT,BNPPRO 88 pg/mL (0-125); PROTEIN TOTAL,TP 7.5 g/dL (6.4-8.2); SODIUM,NA 140 mmol/L (136-145); TSH ULTRASENSITIVE 2.66 uIU/mL (0.36-3.74); URIC ACID 2.1 mg/dL (2.6-7.2)
[2024-08-23 10:40] LABS: ESTIMATED GFR 96 mL/min (>60)
== END 2024-08-23 11:30 | disposition home or self-care (01) ==
LOC: MW.ED 08:16
DX: J44.9 Chronic obstructive pulmonary disease, unspecified (principal); L03.115 Cellulitis of right lower limb; L03.116 Cellulitis of left lower limb; Z90.49 Acquired absence of other specified parts of digestive tract; Z79.51 Long term (current) use of inhaled steroids; Z79.52 Long term (current) use of systemic steroids; Z79.899 Other long term (current) drug therapy; Z75.8 Other problems related to medical facilities and other health care
CPT/HCPCS: 36415; 71045; 71045-26; 80053; 83605; 83735; 83880; 84443; 84484; 84550; 85025; 86308; 87040; 87428-QW; 93005; 93010; 99285

== ENCOUNTER 2025-03-08 07:04 | Emergency (ER) | payer MEDICARE, OTHER ==
[2025-03-08] MEDS ORDERED: Sodium Chloride 0.9% 2.5 ML Syringe FLUSH PRN (07:26)
[2025-03-08] MEDS ORDERED: Sodium Chloride 0.9% 10 ML Syringe FLUSH PRN (07:26)
[2025-03-08] MEDS ORDERED: Sodium Chloride 0.9% 20 ML SDV IV PRN (07:26)
[2025-03-08 07:36] LABS: BASOPHILS ABSOLUTE AUTO 0.05 K/uL (0.00-0.20); BASOPHILS PERCENT AUTO 0.9 % (0.0-1.0); EOSINOPHILS ABSOLUTE AUTO 0.27 K/uL (0.00-0.45); EOSINOPHILS PERCENT AUTO 4.9 % (0.0-6.0); HEMATOCRIT 36.3 % (37.0-47.0); HEMOGLOBIN 11.5 g/dL (12.0-16.0); IMMATURE GRAN ABSOLUTE AUTO 0.02 K/uL (0.00-0.05); IMMATURE GRAN PERCENT AUTO 0.4 % (0.0-0.4); LYMPHOCYTES ABSOLUTE AUTO 1.36 K/uL (1.00-4.80); LYMPHOCYTES PERCENT AUTO 24.6 % (24.0-44.0); MEAN CORPUSCULAR HEMOGLOBIN 29.3 pg (28.0-32.0); MEAN CORPUSCULAR HGB CONC 31.7 g/dL (32.0-36.0); MEAN CORPUSCULAR VOLUME 92.6 fL (83.0-99.0); MEAN PLATELET VOLUME 9.9 fL (9.4-12.3); MONOCYTES ABSOLUTE AUTO 0.57 K/uL (0.00-0.80); MONOCYTES PERCENT AUTO 10.3 % (0.0-8.0); NEUTROPHILS ABSOLUTE AUTO 3.26 K/uL (1.80-7.70); NEUTROPHILS PERCENT AUTO 58.9 % (41.0-71.0); PLATELET COUNT,PLT 207 K/uL (150-400); RED BLOOD CELL COUNT 3.92 M/uL (4.10-5.30); WHITE BLOOD CELL COUNT,WBC 5.53 K/uL (3.9-11.3)
[2025-03-08 07:54] LABS: A/G RATIO 1.3 (0.9-1.6); ALANINE AMINOTRANSFERASE,ALT 15 IU/L (14-63); ALBUMIN 4.3 g/dL (3.4-5.0); ALKALINE PHOSPHATASE 79 U/L (46-116); ASPARTATE AMNIOTRANSFERASE,AST 16 IU/L (15-37); BILIRUBIN TOTAL 0.5 mg/dL (0.2-1.0); BLOOD UREA NITROGEN,BUN 20 mg/dL (7.0-18.0); CALCIUM 9.3 mg/dL (8.5-10.1); CARBON DIOXIDE,CO2 35.2 mmol/L (21.0-32.0); CHLORIDE,CL 102 mmol/L (98-107); CREATININE 0.8 mg/dL (0.6-1.0); GLUCOSE RANDOM 96 mg/dL (74-106); LIPASE 18 U/L (16-77); MAGNESIUM 2.2 mg/dL (1.8-2.4); POTASSIUM,K 4.3 mmol/L (3.5-5.1); PRO B-TYPE NATRIUR PEPT,BNPPRO 60 pg/mL (0-125); PROTEIN TOTAL,TP 7.6 g/dL (6.4-8.2); SODIUM,NA 142 mmol/L (136-145)
[2025-03-08 07:55] LABS: ESTIMATED GFR 81 mL/min (>60)
[2025-03-08] MEDS: Aspirin 81 MG Tab.Chew PO ONE (08:02)
[2025-03-08 08:08] LABS: INR 0.94 (0.86-1.11); PTT,PARTIAL THROMBOPLSTIN TIME 29.7 SEC (23.9-30.7)
[2025-03-08] MEDS: Sodium Chloride 0.9% 1,000 ML IV ONE (08:25)
[2025-03-08] MEDS ORDERED: Naloxone 0.4 MG/ML SDV IVPUSH PRN (08:28)
[2025-03-08] MEDS: Ketorolac 30 MG/ML SDV IVPUSH ONE (08:32)
[2025-03-08] MEDS: Morphine 2 MG/ML SYRINGE IVPUSH ONE (08:34)
[2025-03-08] MEDS: Iopamidol 755 MG/ML 500 ML Multipack Bottle IVPUSH STA (09:08)
[2025-03-08] MEDS: Sodium Chloride 0.9% 500 ML IV SCH (09:55)
== END 2025-03-08 12:00 | disposition home or self-care (01) ==
LOC: MW.ED 07:04
DX: K59.00 Constipation, unspecified (principal); J44.9 Chronic obstructive pulmonary disease, unspecified; Z79.51 Long term (current) use of inhaled steroids; Z79.899 Other long term (current) drug therapy
CPT/HCPCS: 36415; 71045; 71275; 74177; 76705; 80053; 83605; 83690; 83735; 83880; 84484; 85025; 85610; 85730; 87040; 93005; 96361; 96374; 96375; 99285; A9270; J1885; J2270; J7030; J7040; Q9967; 99284

== ENCOUNTER 2025-07-11 19:00 | Emergency (ER) | payer MEDICARE, OTHER ==
[2025-07-11 19:22] LABS: BASOPHILS ABSOLUTE AUTO 0.04 K/uL (0.00-0.20); BASOPHILS PERCENT AUTO 0.6 % (0.0-1.0); EOSINOPHILS ABSOLUTE AUTO 0.07 K/uL (0.00-0.45); EOSINOPHILS PERCENT AUTO 1.0 % (0.0-6.0); IMMATURE GRAN ABSOLUTE AUTO 0.03 K/uL (0.00-0.05); IMMATURE GRAN PERCENT AUTO 0.4 % (0.0-0.4); LYMPHOCYTES ABSOLUTE AUTO 1.46 K/uL (1.00-4.80); LYMPHOCYTES PERCENT AUTO 21.3 % (24.0-44.0); MEAN PLATELET VOLUME 9.9 fL (9.4-12.3); MONOCYTES ABSOLUTE AUTO 0.72 K/uL (0.00-0.80); MONOCYTES PERCENT AUTO 10.5 % (0.0-8.0); NEUTROPHILS ABSOLUTE AUTO 4.52 K/uL (1.80-7.70); NEUTROPHILS PERCENT AUTO 66.2 % (41.0-71.0); NRBC ABSOLUTE 0.00 K/uL (0.00-0.02); NRBC PERCENT 0.0 /100WBC (0.0-0.2); PLATELET COUNT,PLT 209 K/uL (150-400); RED BLOOD CELL COUNT 4.03 M/uL (4.10-5.30); WHITE BLOOD CELL COUNT,WBC 6.84 K/uL (3.9-11.3)
[2025-07-11] MEDS: Sodium Chloride 0.9% 10 ML Syringe FLUSH PRN (19:23)
[2025-07-11] MEDS: Sodium Chloride 0.9% 2.5 ML Syringe FLUSH PRN (19:23)
[2025-07-11] MEDS: Alum Hydrox/Mag Hydrox/Simeth 15 ML, Metoclopramide 5 MG, Lidocaine 2% 5 ML PO ONE (19:24)
[2025-07-11 19:36] LABS: INR 0.97 (0.86-1.11)
[2025-07-11 19:53] LABS: A/G RATIO 1.4 (0.9-1.6); ALANINE AMINOTRANSFERASE,ALT 17.0 IU/L (14-63); ASPARTATE AMNIOTRANSFERASE,AST 22.0 IU/L (15-37); BILIRUBIN TOTAL 1.7 mg/dL (0.2-1.0); BLOOD UREA NITROGEN,BUN 19.0 mg/dL (7.0-18.0); CARBON DIOXIDE,CO2 30.7 mmol/L (21.0-32.0); CHLORIDE,CL 101.0 mmol/L (98-107); CREATININE 0.9 mg/dL (0.6-1.0); EST CRCL DRUG DOSING (CG) 64.26 mL/min; GLUCOSE RANDOM 102.0 mg/dL (74-106); POTASSIUM,K 4.2 mmol/L (3.5-5.1); PRO B-TYPE NATRIUR PEPT,BNPPRO 23.0 pg/mL (0-125); PROTEIN TOTAL,TP 8.0 g/dL (6.4-8.2); SODIUM,NA 140.0 mmol/L (136-145)
[2025-07-11 19:56] LABS: ESTIMATED GFR 71.0 mL/min (>60)
[2025-07-11] MEDS: Ondansetron 4 MG/2 ML SDV IVPUSH ONE (20:02)
[2025-07-11] MEDS: Iopamidol 755 MG/ML 500 ML Multipack Bottle IVPUSH STA (20:23)
[2025-07-11] MEDS: Magnesium Citrate Solution 296 ML Bottle PO ONE (22:25)
[2025-07-11] MEDS: droPERidol 2.5 MG/ML SDV IVPUSH ONE (22:25)
== END 2025-07-11 22:32 | disposition home or self-care (01) ==
LOC: MW.ED 19:00
DX: K52.9 Noninfective gastroenteritis and colitis, unspecified (principal); K59.00 Constipation, unspecified; R07.9 Chest pain, unspecified; E86.0 Dehydration; Z75.3 Unavailability and inaccessibility of health-care facilities; Z79.899 Other long term (current) drug therapy; Z90.49 Acquired absence of other specified parts of digestive tract
CPT/HCPCS: 36415; 71045; 74177; 80053; 83735; 83880; 84484; 85025; 85610; 93005; 96374; 96375; 99285; A9270; J1790; J2270; J2405; Q9967; 93010; 99284